=== PATIENT | female | born 1945 | race Caucasian/White ===

== ENCOUNTER → 2017-06-28 15:57 | Outpatient (CLI) | payer MEDICARE, SELFPAY ==
--- NOTE | 2017-06-28 16:02 | MM_ITS ---
MM Dig screening mamm BI w/CAD CAD Screening COMPARISON: Digital mammograms 06/10/2015 and 06/15/2016 INDICATION: There is no personal or family history of breast cancer. There is been previous biopsy left breast for benign disease. TECHNIQUE: Standard CC and MLO images were obtained. R2 CAD reviewed. FINDINGS: Moderate diffuse fibroglandular densities are seen in both breast primarily upper outer quadrants. There is arterial calcification in both breasts. There are few benign-appearing calcination is left breast. There is a possible developing asymmetric density inner quadrant left breast. This was seen previously but is slight increased in size. Recommend patient return for spot compression views in MLO and CC projection and ultrasound may be necessary as well. IMPRESSION: Moderate breast density with possible new or change in asymmetric density left breast. BI-RADS Category: 0 Need Additional Imaging Evaluaiton RECOMMENDED FOLLOW-UP: IMM - IMMEDIATE FOLLOW-UP RECOMMENDED (A letter has been sent to the patient regarding results of the study.)
== END ==
PROVIDERS: Family Provider Family Medicine; PCP Family Medicine; Visit Provider Family Medicine
DX: Z12.31 Encounter for screening mammogram for malignant neoplasm of breast (principal)
CPT/HCPCS: 77067

== ENCOUNTER → 2017-07-23 12:38 | Outpatient (CLI) | payer MEDICARE, SELFPAY ==
--- NOTE | 2017-07-23 | US_ITS ---
MM Dig mamm DX unilat LT CAD, US breast LT complete COMPARISON: 06/28/17 and 06/15/2016 INDICATION: Follow-up abnormal mammogram ORDERING PHYSICIAN: Armani Campa MD PATIENT AGE: 72 years TECHNIQUE: Problem solving views performed FINDINGS: Average fibroglandular tissue. The asymmetric density in the medial aspect of the left breast does appear to compress out as fibroglandular tissue. There is some residual increased density in this region. Rolled views were obtained showing some slight increased density but without defined margins probably related to fibroglandular tissue. This has a somewhat similar appearance on older study of 06/15/2016 and an even older exam of 06/19/2009. Left breast ultrasound: No solid or cystic lesions. No abnormality evident in the medial aspect of the left breast. IMPRESSION: Probably benign finding. Asymmetric density likely corresponds to asymmetric fibroglandular tissue. BI-RADS Category: 3 Benign Finding Short Term Follow-up RECOMMENDED FOLLOW-UP: 6M - 6 MONTH FOLLOW-UP Recommend 6 month progress follow-up with spot compression views as performed on today's exam. (A letter has been sent to the patient regarding results of the study.)
== END ==
PROVIDERS: Family Provider Family Medicine; PCP Family Medicine; Visit Provider Family Medicine
DX: R92.8 Other abnormal and inconclusive findings on diagnostic imaging of breast (principal); R92.2 Inconclusive mammogram
CPT/HCPCS: 76641; 77065

== ENCOUNTER → 2017-09-02 14:53 | Outpatient (CLI) | payer MEDICARE, SELFPAY ==
--- NOTE | 2017-09-02 15:01 | XR_ITS ---
XR knee LT 3V Ordering Physician: Armani Campa MD Patient Age: 72 years: Female HISTORY: ITS.REASON: OSTEOARTHRITIS,ROTATOR CUFF SYNDROME TECHNIQUE: 3 views left knee COMPARISON :None FINDINGS Developing degenerative changes at most evident at medial compartment Narrowing medial compartment with slight undulation at the margin of the medial compartment Marginal osteophytes are most evident about the medial compartment as well. Also developing marginal osteophytes at patellofemoral joint most evident at its inferior margin.. Lateral view knee shows a a moderate to generous joint effusion suprapatella bursa. Mild diffuse demineralization. IMPRESSION degenerative arthritic changes left knee most pronounced/ moderately pronounced at medial compartment. Associated joint effusion
--- NOTE | 2017-09-02 15:01 | XR_ITS ---
XR shoulder RT min 2V Ordering Physician: Armani Campa MD Patient Age: 72 years: Female HISTORY: ITS.REASON: OSTEOARTHRITIS,RT ROATATOR CUFF SYNDROME TECHNIQUE: 3 views right shoulder COMPARISON :None FINDINGS Severe arthritic changes at right shoulder. Severe narrowing sclerosis and diffuse subchondral cystic changes and irregularities are seen at the glenohumeral joint. [id number] appearance at the narrowed sclerotic glenohumeral joint. There is also superior migration of the humeral head relative to the glenoid with narrowing the subacromial space suspect for underlying rotator cuff demise/tear. Mild to moderate AC joint arthropathy. Diffuse demineralization. No fracture nor dislocation. Developing arthritic changes at lower C-spine also noted. [place] right lung clear upper right ribs intact. IMPRESSION: ======== Severe advanced arthritic changes at the right shoulder . Severe degenerative arthritis with [id number] appearance at the glenohumeral joint . Suspect underlying rotator cuff demise and tear as well
== END ==
PROVIDERS: PCP Family Medicine; Visit Provider Family Medicine
DX: M17.12 Unilateral primary osteoarthritis, left knee (principal); M75.101 Unspecified rotator cuff tear or rupture of right shoulder, not specified as traumatic
CPT/HCPCS: 73030; 73562

== ENCOUNTER → 2017-09-14 08:29 | Outpatient (CLI) | payer MEDICARE, SELFPAY ==
--- NOTE | 2017-09-14 08:38 | XR_ITS ---
XR DEXA axial skeleton HISTORY: ITS.REASON: POST MENOPAUSAL ORDERING PHYSICIAN: Armani Campa MD PATIENT AGE: 72 years FINDINGS: The BMD measured at the Right femoral neck is 0.652 g/cm squared with a T score of -2.8 . This is considered Osteoporotic according to the World Health Organization criteria. Fracture risk is high. Treatment is advised. The hip density has decreased by 14% compared to 10/30/2010. IMPRESSION: Osteoporosis with high fracture risk. Recommend follow-up exam August 2018
== END ==
PROVIDERS: Family Provider Family Medicine; PCP Family Medicine; Visit Provider Family Medicine
DX: Z78.0 Asymptomatic menopausal state (principal)
CPT/HCPCS: 77080

== ENCOUNTER → 2018-01-28 14:10 | Outpatient (CLI) | payer MEDICARE, SELFPAY ==
--- NOTE | 2018-01-28 14:14 | MM_ITS ---
MM Dig mamm DX unilat LT CAD Ordering Physician: Armani Campa MD Patient Age: 72 years Female COMPARISON: May 20152014, & 2016 along with diagnostic left mammogram July 2017., INDICATION: Follow-up/ evaluate asymmetric areas of breast density left breast attention to Indication medial left breast TECHNIQUE: CC, rolled cc, MLO, ML as well as spot CC and MLO views FINDINGS: The asymmetric areas of density appear long-standing and stable with no significant new findings. Patient has moderately dense breast tissue at superior breast 12:00 as well as fibroglandular elements extending back towards upper-outer quadrant of left breast. These appear stable versus multiple studies. A small area fibrolinear tissue at medial left breast noted on previous mammogram appears to be a stable benign feature. It dissipates on the rolled cc views compatible with benign fibroglandular tissue and has been seen on multiple previous studies dating even back to 2013... Benign tissue IMPRESSION: ... . Stable left mammogram. No significant new findings may resume annual schedule BI-RADS Category: 2 Benign Finding(s) RECOMMENDED FOLLOW-UP: 6M 6 MONTH FOLLOW-UP. Bilateral mammogram in 6 months to resume annual scheduled A letter has been sent to the patient regarding results of the study.)
== END ==
PROVIDERS: Family Provider Family Medicine; PCP Family Medicine; Visit Provider Family Medicine
DX: R92.8 Other abnormal and inconclusive findings on diagnostic imaging of breast (principal)
CPT/HCPCS: 77065

== ENCOUNTER → 2018-06-01 13:04 | Outpatient (CLI) | payer MEDICARE, SELFPAY ==
--- NOTE | 2018-06-01 13:11 | US_ITS ---
US abdomen complete HISTORY: Vomiting when eating, right upper quadrant pain ITS.REASON: ABD PAIN,N/V ORDERING PHYSICIAN: Elise Dougherty PATIENT AGE: 72 years COMPARISON: None FINDINGS: PANCREAS:Unremarkable. No obvious mass or abnormal fluid collection. No ductal dilatation LIVER:No focal liver lesions demonstrated. Homogeneous echogenicity. No intrahepatic biliary ductal dilatation evident RIGHT KIDNEY:Unremarkable. Normal size and echogenicity. No hydronephrosis LEFT KIDNEY:Unremarkable. No hydronephrosis. Normal size and echogenicity. GALLBLADDER:Gallbladder is mildly distended at 9 cm. Common bile duct is normal at 5 mm. No gallbladder wall thickening, gallstones, pericholecystic fluid, or biliary dilatation. AORTA:No evidence of aneurysm. Small amount plaque is present within the aorta SPLEEN:Unremarkable. Normal size and echogenicity ASCITES:None demonstrated. IMPRESSION: Mildly prominent gallbladder. No stones or other significant anomalies are evident
== END ==
PROVIDERS: PCP Family Medicine; Visit Provider Nurse Practitioner Family
DX: R10.10 Upper abdominal pain, unspecified (principal); R11.2 Nausea with vomiting, unspecified
CPT/HCPCS: 76700

== ENCOUNTER → 2018-07-27 15:06 | Outpatient (CLI) | payer MEDICARE, SELFPAY ==
--- NOTE | 2018-07-27 15:10 | MM_ITS ---
[facility] [place] screening mamm BI w/CAD ORDERING PHYSICIAN : Armani Campa MD PATIENT AGE: 73 years GENDER: Female COMPARISON is made to December 2017, July 2017 studies of the left breast ; as well as the bilateral mammogram from May 2017. There is also a left breast ultrasound study from July 2017 also utilized INDICATION: Screening mammogram.: Prior ABNORMAL MAMM. No hormones. No new complaints Previous excisional biopsy left breast Noncontributory family history TECHNIQUE: Standard CC and MLO images were obtained. R2 CAD reviewed. FINDINGS: Heterogeneous asymmetric breast, with regions of moderately dense breast tissue. Mammography is slight decreased sensitivity in breast of this character but Similar to pattern to previous with no new dominant mass nor suspicious calcifications.. Fibroglandular elements most evident upper-outer quadrant right and left breast again seen.. This pattern is been seen on multiple previous studies with asymmetric areas of density appearing stable no new findings of significant concern. RIGHT BREAST:No new areas of concern LEFT BREAST:Again asymmetric area of density deep medial left breast observed but it is unchanged since last years study, and dates back to at least 2016.-can be followed. Other areas of heterogeneous dense breast of similar to previous studies ......... IMPRESSION: No new areas of significant concern. Asymmetric heterogeneous moderate density breast pattern slightly decreases sensitivity of mammography but with no new areas of concern. Bilateral follow-up in one year recommended BI-RADS Category: 2 Benign Finding(s) RECOMMENDED FOLLOW-UP: 1YR 1 YEAR FOLLOW-UP (A letter has been sent to the patient regarding results of the study.) [facility]
== END ==
PROVIDERS: PCP Family Medicine; Visit Provider Family Medicine
DX: Z12.31 Encounter for screening mammogram for malignant neoplasm of breast (principal)
CPT/HCPCS: 77067

== ENCOUNTER → 2020-03-04 16:08 | Outpatient (CLI) | payer MEDICARE, SELFPAY ==
--- NOTE | 2020-03-04 16:10 | MM_ITS ---
PROCEDURE: MM DIG SCREENING MAMM BI W/CAD Digital Breast Tomosynthesis Included CLINICAL INDICATION: SCREENING There is no personal or family history of breast cancer. There has been a previous biopsy left breast for benign disease. The patient has had previous rotator cuff injury right shoulder and could not assume the proper position for the right MLO. COMPARISON: MG DXLT MM Dig mamm DX unilat LT CAD from 07/23/2017 MG DXLT MM Dig mamm DX unilat LT CAD from 01/28/2018 MG [facility] MM Dig screening mamm BI w/CAD from 07/27/2018 TECHNIQUE: Standard CC and MLO images and 3D Tomosynthesis was obtained. R2 CAD reviewed. FINDINGS: Moderate diffuse fibroglandular densities are seen in both breasts primarily upper outer quadrant. There is minimal arterial calcification in each breast. There is a benign-appearing macro calcification left breast. There is no new or suspicious lesion in either breast and no suspicious microcalcifications. IMPRESSION: Stable fibrofatty parenchyma and no suspicious lesions seen BI-RAD Category: 2 Benign Finding(s) FOLLOW-UP: 1YR 1 Year Follow-up (A letter has been sent to the patient regarding results of the study.) Dictated by: Dr. Osiel Szymanski MD 03/06/2020 16:31 Dr. Osiel Szymanski MD in [place] 03/06/2020 16:31
== END ==
PROVIDERS: PCP Family Medicine; Visit Provider Family Medicine
DX: Z12.31 Encounter for screening mammogram for malignant neoplasm of breast (principal)
CPT/HCPCS: 77063; 77067

== ENCOUNTER → 2020-04-08 08:56 | Outpatient (CLI) | payer MEDICARE, SELFPAY ==
--- NOTE | 2020-04-08 09:03 | XR_ITS ---
PROCEDURE: XR KNEE LT 3V CLINICAL INDICATION: LT KNEE PAIN COMPARISON: CR [id number] XR knee LT 3V from 09/02/2017 FINDINGS: There are severe osteoarthritic changes of the medial compartment and patellofemoral joint. Dysplastic changes are present involving the articular surface of the medial femoral condyle and medial tibial plateau with osteosclerosis and cortical undulation. Chondrocalcinosis is present medially and laterally. No fracture or dislocation. Other findings:None. IMPRESSION: Severe osteoarthritis of the medial compartment and patellofemoral joint which appears slightly worse with chondrocalcinosis Dictated by: Andrea Edwards MD 04/08/2020 11:46 Andrea Edwards MD in [place] 04/08/2020 11:46
== END ==
PROVIDERS: PCP Family Medicine; Visit Provider Orthopaedic Surgery Adult Reconstructive Orthopaedic Surgery
DX: M25.562 Pain in left knee (principal)
CPT/HCPCS: 73562

== ENCOUNTER → 2020-06-24 08:33 | Outpatient (CLI) | payer MEDICARE, SELFPAY ==
[2020-06-24 09:49] LABS: Coronavirus 19 IgG Antibody Negative (Negative); Coronavirus 19 IgM Antibody Negative (Negative)
--- NOTE | 2020-06-24 10:40 | ECG_ITS ---
APPROVED REPORT Exam: Resting ECG HR:70 bpm ECG Measurements Heart Rate 70 AXES QRSd 88 QRS 34 QT 402 T 81 QTc 434 Conclusion Marked artifact limits interpretation Demand pacer spikes noted Abnormal ECG Electronically signed by : Armani Ambrose, 07/05/2020 06:01:37
--- NOTE | 2020-06-24 11:41 | ECG_ITS ---
APPROVED REPORT Exam: Resting ECG HR:79 bpm ECG Measurements Heart Rate 79 AXES NJ 140 P 72 QRSd 84 QRS -11 QT 382 T 69 QTc 438 Conclusion Normal sinus rhythm Normal ECG Electronically signed by : Armani Ambrose, 06/25/2020 07:08:35
== END ==
PROVIDERS: Visit Provider Ophthalmology
DX: K85.90 Acute pancreatitis without necrosis or infection, unspecified (principal)
CPT/HCPCS: 36415; 86328; 93005

== ENCOUNTER 2020-06-24 10:12 | Observation (INO) | payer MEDICARE, SELFPAY ==
[2020-06-24] VITALS (7 sets, daily range): BP systolic 126–165; BP diastolic 65–88; PULSE 74–102; RESP 16–22; TEMP 36.7–37.1; O2SAT 98–99; BMI 19.7
--- NOTE | 2020-06-24 10:26 | CT_ITS ---
PROCEDURE: CT ABDOMEN PELVIS WO CON CLINICAL INDICATION: pain Right flank pain, right lower quadrant pain COMPARISON: CT ABDPELW CT abdomen pelvis w con from 05/31/2018 TECHNIQUE: Axial images obtained with sagittal and coronal reformats. All CT scans at the facility use one or more dose reduction, viz: automated exposure control, ma/kV adjustment per patient size (including targeted exams where dose is matched to indication, i.e. head), or iterative reconstruction technique. FINDINGS: LOWER THORAX: Mild fibrotic/atelectatic changes in the lung bases. Nodular thickening is noted along the right hemidiaphragm 3 cm and 1 cm in with slightly more prominent. There is mild thickening of the pericardium laterally on the right ABDOMEN & PELVIS: There is a 9 mm hypodensity in the right hepatic lobe posteriorly not significantly changed. Gallbladder is somewhat distended. The spleen, adrenal glands, and pancreas have an unremarkable appearance. There is scarring along the lower pole of the right kidney with nonobstructing stone in the lower pole on the right at 4 mm along with some nephrocalcinosis on the right. There is minimal ectasia of the right proximal ureter. On image number 71 there is a faint calcific density along the right ureter which could represent a tiny stone. No evidence of appendicitis or diverticulitis There is a mild amount of retained colonic feces. There is a soft tissue density in the mid abdominal region just below the level of the umbilicus. This area measures 2.5 x 2.4 cm with some faint calcification along its lower margin. Etiology is indeterminate. Recommend CT of the abdomen with both IV and oral contrast for further evaluation and to confirm that this does not represent an area of unopacified bowel. There are multiple pelvic calcifications present. Multiple unopacified bowel loops in the abdomen or pelvis which could obscure or mimic pathology. If symptoms persist, consider repeat exam with IV and oral contrast.. There are degenerative changes in the lumbar spine. There is mild wedging of T11 which is unchanged. No acute bony findings. Nonspecific calcification is present in the right ovarian region. This is unchanged. IMPRESSION: 1. Nodularity along the right hemidiaphragm mildly more prominent.. 2. Mildly distended gallbladder nonspecific. 3. Suspect soft tissue mass in the mid to lower abdominal region centrally 2.5 x 2.[address] abdomen pelvis with both IV and oral contrast. 4. Mild amount of retained colonic feces. Multiple unopacified bowel loops in the abdomen or pelvis which could obscure or mimic pathology. If symptoms persist, consider repeat exam with IV and oral contrast. 5. Right nephrolithiasis. Possible tiny right distal ureteral stone head approximately 1 mm. Dictated by: Andrea Edwards MD 06/24/2020 11:58 Andrea Edwards MD in [place] 06/24/2020 11:58
--- NOTE | 2020-06-24 10:48 | PC.NURSE ---
Pt going to CT
[2020-06-24 11:00] LABS: Basophils % 0.6 % (0.1-2.0); Eosinophils # 0.1 K/mm3 (0.0-0.4); Hematocrit 42.3 % (37.0-47.0); Hemoglobin 13.7 g/dL (12.2-16.2); Lymphocytes # 0.9 K/mm3 (0.7-4.5); Lymphocytes % 15.9 % (10-50); Mean Corpuscular HGB Conc 32.5 g/dL (31.8-35.4); Mean Corpuscular Hemoglobin 28.9 pg (27.0-31.2); Mean Platelet Volume 9.9 fl (7.4-10.4); Monocytes # 0.3 K/mm3 (0.1-1.0); Monocytes % 6.2 % (1.7-9.3); Neutrophils # 4.1 K/mm3 (1.8-7.8); Neutrophils % 76.4 % (37.0-80.0); Platelet Count 202 K/mm3 (142-424); Red Blood Count 4.75 M/mm3 (4.20-5.40); Red Cell Distribution Width 13.9 % (11.5-17.5); White Blood Count 5.4 K/mm3 (4.8-10.8)
[2020-06-24 11:08] LABS: Chloride 102 mmol/L (98-107)
[2020-06-24 11:09] LABS: Potassium 3.3 mmoL/L (3.5-5.1); Sodium 139 mmol/L (136-145)
[2020-06-24 11:11] LABS: Alanine Aminotransferase 20 U/L (12-78); Alkaline Phosphatase 87 U/L (38-126); Anion Gap 14.3 mEq/L (5-15); Aspartate Amino Transferase 37 U/L (14-36); Bilirubin,Total 0.6 mg/dl (0.2-1.3); Blood Urea Nitrogen 12 mg/dl (7-17); Carbon Dioxide 26 mmol/L (22.0-30.0); Estimated Glomerular Filt Rate 97 ml/min (>60); GFR (African American) 118 ML/MIN (>60); Lipase 550 U/L (23-300)
[2020-06-24 11:12] LABS: Albumin Level 4.9 g/dl (3.5-5.0); Albumin/Globulin Ratio 1.3 (1.1-1.8); Globulin 3.7 g/dL (1.3-3.2); Glucose 120 mg/dl (74-100); Total Protein,Serum 8.6 g/dl (6.3-8.2)
[2020-06-24 11:29] LABS: Troponin I < 0.01 ng/ml (0.00-0.034)
--- NOTE | 2020-06-24 11:36 | HMH.EDABDPAI ---
ED Disposition Clinical Impression: Calculus of kidney, Intractable nausea and vomiting, Intractable abdominal pain Pancreatitis Qualifiers: Chronicity: acute Pancreatitis type: unspecified pancreatitis type Acute pancreatitis complication: unspecified Qualified Code(s): K85.90 - Acute pancreatitis without necrosis or infection, unspecified Disposition: Admitted As Inpatient Condition on Discharge: Fair Referrals: Armani Campa MD [Primary Care Provider] - - Critical Care Critical Care Time: No Attestation: On 06/24/20, the high probability of a clinically significant, sudden or life threatening deterioration of the following system(s) required my full and direct attention, intervention and personal management. The time I documented below is in addition to time spent performing reported procedures but includes the following listed in this critical care notation. Medical Decision Making - Medical Records Medical records reviewed: Yes: I reviewed the patient's medical records. - Abelardo Inquiry Pt receiving controlled substance: Yes Abelardo was queried for this patient: No Reason not queried -: Emergent pt cond-no time Risks and benefits of using a controlled substance: were discussed with pt by me Vital Signs: 06/24/20 10:13 Temperature 98.5 F Temperature Source Oral Pulse Rate [Right] 81 Respiratory Rate 22 Blood Pressure [Right Arm] 144/74 H Blood Pressure Mean [Right Arm] 97 Blood Pressure Source [Right Arm] Automatic Cuff Blood Pressure Position [Right Arm] Sitting 02 Sat by Pulse Oximetry 98 Oxygen Delivery Method Room Air - Lab Data Lab Results 06/24/20 10:26: WBC 5.4, RBC 4.75, Hgb 13.7, Hct 42.3, MCV 89.0, MCH 28.9, MCHC 32.5, RDW 13.9, Plt Count 202, MPV 9.9, Neut % (Auto) 76.4, Lymph % (Auto) 15.9, [place] % (Auto) 6.2, Eos % (Auto) 1.0, Baso % (Auto) 0.6, Neut # (Auto) 4.1, Lymph # (Auto) 0.9, [place] # (Auto) 0.3, Eos # (Auto) 0.1, Baso # (Auto) 0.0 06/24/20 10:26: Sodium 139, Potassium 3.3 L, Chloride 102, Carbon Dioxide 26, Anion Gap 14.3, BUN 12, Creatinine 0.60, Estimated GFR 97, Est GFR ( Amer) 118, Glucose 120 H, Calcium 10.0, Total Bilirubin 0.6, AST 37 H, ALT 20, Alkaline Phosphatase 87, Troponin I < 0.01, Total Protein 8.6 H, Albumin 4.9, Globulin 3.7 H, Albumin/Globulin Ratio 1.3, Lipase 550 H Result diagrams: 06/24/20 10:26 06/24/20 10:26 Orders (Tests/Meds): ED MEDICATIONS Discontinued Medications Generic Name Dose Route Start Last Admin Trade Name Freq PRN Reason Stop Dose Admin Diatrizoate Meglum/Diatrizoate Sod 30 ml 06/24/20 12:28 Diatrizoate Darlyn 66% & Diatrizoate Na 10% 30ml Udc PO 06/24/20 12:29 ONCE ONE Hydromorphone HCl 1 mg 06/24/20 10:42 06/24/20 11:19 Hydromorphone 2mg/Ml Syringe IV 06/24/20 10:43 1 mg ONCE ONE Administration Hydromorphone HCl 1 mg 06/24/20 12:27 Hydromorphone 2mg/Ml Syringe IV 06/24/20 12:28 ONCE ONE Sodium Chloride 1,000 mls @ 999 mls/hr 06/24/20 10:30 06/24/20 11:19 Sod Chlor 0.9% 1000ml Bag IV 06/24/20 11:30 999 mls/hr .Q1H1M SHIRA Administration Morphine Sulfate 4 mg 06/24/20 10:26 06/24/20 11:18 Morphine 4mg/Ml Syringe IV 06/24/20 10:27 4 mg ONCE ONE Administration Ondansetron HCl 4 mg 06/24/20 10:26 06/24/20 11:18 Ondansetron 4mg/2ml Vial IV 06/24/20 10:27 4 mg ONCE ONE Administration Ondansetron HCl 4 mg 06/24/20 12:27 Ondansetron 4mg/2ml Vial IV 06/24/20 12:28 ONCE ONE ORDERS Category Date Time Status CT abdomen pelvis w con Stat Cat Scan 06/24/20 12:28 Ordered Lactic Acid Stat Lab 06/24/20 10:24 Ordered Troponin I Q3H Lab 06/24/20 13:30 Ordered Troponin I Q3H Lab 06/24/20 16:30 Ordered Urinalysis and Microscopic Stat Lab 06/24/20 10:24 Ordered - CT Data CT Scan: Abdomen, Pelvis Time Received: 12:[address] Reviewed: Yes: I have reviewed the patient's CT results, I have viewed the radiologist's interpretation Findings Narrativ
--- NOTE | 2020-06-24 12:28 | CT_ITS ---
PROCEDURE: CT ABDOMEN PELVIS W CON CLINICAL INDICATION: pain Right flank pain, right lower quadrant pain, nausea COMPARISON: CT ABDPELW CT abdomen pelvis w con from 05/31/[address] ABDOMEN PELVIS WO CON from 06/24/2020 TECHNIQUE: IV Contrast: 75ML Isovue 370 Oral Contrast Gastroview Axial images obtained with sagittal and coronal reformats. All CT scans at the facility use one or more dose reduction, viz: automated exposure control, ma/kV adjustment per patient size (including targeted exams where dose is matched to indication, i.e. head), or iterative reconstruction technique. FINDINGS: LOWER THORAX: No change in the nodularity in the right middle lobe measuring up to 4 mm. No change in the nodularity along the right hemidiaphragm. ABDOMEN & PELVIS: Hypodensity once again noted in the right hepatic lobe posteriorly at 10 mm similar to 05/31/2018. Distended gallbladder. There is a moderate amount of retained colonic feces once again noted. No intestinal obstruction or free air. Scarring noted in the lower pole of the right kidney with a calcification of the cortex inferiorly. There is hypodensity along the lateral aspect of the left kidney with calcification posteriorly and may represent a stone within a cyst no ureteral calculi parent. Hypodensity is present in the mid abdominal region measuring 2.3 by 2.2 cm. There is a small slightly enhancing nodule along the left lateral aspect of this lesion which measures 10 mm. 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 This may been present on 05/31/2018 but smaller. Urinary bladder is distended. No acute bony findings. IMPRESSION: 1. 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 CTA of the aorta and superior mesenteric artery with CTV of the superior mesenteric vein may provide further evaluation. 2. Moderate amount of retained colonic feces. 3. Other nonacute findings as described above Dictated by: Andrea Edwards MD 06/24/2020 17:03 Andrea Edwards MD in [place] 06/24/2020 17:03
--- NOTE | 2020-06-24 12:37 | PC.NURSE ---
Dr Higginbotham speaking with Dr Campa at this time.
--- NOTE | 2020-06-24 12:48 | PC.NURSE ---
Pt reports she is dizzy and wants to wait on her pain and nausea meds at this time
--- NOTE | 2020-06-24 13:10 | PC.NURSE ---
Pt had pre-op COVID antibody tests this morning for an eye procedure tomorrow. Results are negative. notified receiving RN that patient was ready. Pt given her oral contrast at this time.
--- NOTE | 2020-06-24 13:14 | HMH.PHAINT ---
MEDICATION RECONCILIATION COMPLETED ON PATIENT USING EXTERNAL FILL HISTORY FROM PHARMACY. -AVELINO MOREJON, LAZAROD
--- NOTE | 2020-06-24 13:14 | PC.NURSE ---
patient finished PO contrast at this time, notified radiology
[2020-06-24 13:46] LABS: Lactic Acid 0.7 mmol/L (0.7-2.1)
[2020-06-24 14:05] LABS: Troponin I < 0.01 ng/ml (0.00-0.034)
[2020-06-24 15:06] LABS: Coronavirus 19 IgG Antibody Negative (Negative); Coronavirus 19 IgM Antibody Negative (Negative)
--- NOTE | 2020-06-24 15:59 | PC.NURSE ---
TAKEN TO RADIOLOGY FOR C/T SCAN VIA WC.
--- NOTE | 2020-06-24 16:01 | HMH.HP ---
*Admission Date: 06/24/20 *Chief complaint: Abdominal pain *History of present illness: 74-year-old female presented to the emergency department with onset abdominal pain early this morning. Pain began upon awakening from bed. Patient had not had a chance to eat breakfast. She reports pain in the periumbilical and epigastric area. Pain radiates directly through her to the mid back and down to the spine. Patient also felt nauseous. Patient came to the hospital to have Covid testing performed in anticipation of an outpatient procedure. When her symptoms worsen she decided to present to the emergency department. Patient herself denies fevers, chills, headache, cough, shortness of breath, chest pain. She reports daily bowel movements although admits this morning's bowel movement was smaller in volume than usual. She denies hematochezia, melena. Work-up in the emergency department found an elevated lipase at 500, possible nonobstructing right-sided kidney stone, enlarged gallbladder, and incomplete visualization of the intestinal tract raising possibility of partial obstruction. [facility] History I have reviewed the patient's past medical history: Yes Medical History: Denies:: Cancer, Diabetes Mellitus Type 1, Diabetes Mellitus Type 2, Internal Pacemaker, Lung Disease, MRSA, Seizures *Have you ever received a pneumonia vaccine?: No *Have you received a flu vaccine this season?: No Other Medical History: Reports: Arthritis, Cataracts Other Surgeries: Yes: No Previous Surgery. No: Pacemaker Amputation: No Fractures: No - *Social History Smoking Status: Never smoker Alcohol Intake: never *Occupational Status:: employed Housing: house Household Members: none *Travel in the last 8 weeks: None Family Hx:: Diabetes Review of Systems - *Neurologic Denies headache(s) Meds Home Medications Medication Instructions Recorded Confirmed Type Famotidine [Acid Controller] 20 mg PO HS 06/19/20 06/24/20 History Meloxicam 15 mg PO DAILY 06/19/20 06/24/20 History Potassium Chloride [K-Tab ER 20 20 meq PO DAILY 06/19/20 06/24/20 History mEq] polyethylene glycoL 3350 [Miralax 17 gm PO DAILY 06/19/20 06/24/20 History 17gm Packet] Alendronate Sodium [Fosamax 70mg 70 mg PO WEEKLY 06/24/20 06/24/20 History Tablet] Amlodipine Besylate [Amlodipine 10 mg PO DAILY 06/24/20 06/24/20 History 10mg Tab] Allergies Allergy/AdvReac Type Severity Reaction Status Date / Time No Known Allergies Allergy Verified 06/19/20 15:02 Exam Vital signs and Labs for Last 24 Hours: Temp Pulse Resp BP Pulse Ox 98.3 F 84 16 151/71 H 98 06/24/20 13:17 06/24/20 13:17 06/24/20 13:17 06/24/20 13:17 06/24/20 13:17 Laboratory Results - last 24 hr 06/24/20 10:26: WBC 5.4, RBC 4.75, Hgb 13.7, Hct 42.3, MCV 89.0, MCH 28.9, MCHC 32.5, RDW 13.9, Plt Count 202, MPV 9.9, Neut % (Auto) 76.4, Lymph % (Auto) 15.9, [place] % (Auto) 6.2, Eos % (Auto) 1.0, Baso % (Auto) 0.6, Neut # (Auto) 4.1, Lymph # (Auto) 0.9, [place] # (Auto) 0.3, Eos # (Auto) 0.1, Baso # (Auto) 0.0 06/24/20 10:26: Sodium 139, Potassium 3.3 L, Chloride 102, Carbon Dioxide 26, Anion Gap 14.3, BUN 12, Creatinine 0.60, Estimated GFR 97, Est GFR ( Amer) 118, Glucose 120 H, Calcium 10.0, Total Bilirubin 0.6, AST 37 H, ALT 20, Alkaline Phosphatase 87, Troponin I < 0.01, Total Protein 8.6 H, Albumin 4.9, Globulin 3.7 H, Albumin/Globulin Ratio 1.3, Lipase 550 H 06/24/20 10:26: SARS-CoV-2 IgG Ab (Rapid) Negative, SARS-CoV-2 IgM Ab (Rapid) Negative 06/24/20 13:18: Lactate 0.7 06/24/20 13:18: Troponin I < 0.01 I & O for Last 24 hours: Intake & Output 06/22/20 06/23/20 06/24/20 06/25/20 11:59 11:59 11:59 11:59 Intake Total 750 / 750 Output Total 600 / 600 Balance 150 / 150 Weight 115 lb - Constitutional mild distress, thin - *Routine HEENT Exam Head: Present: normocephalic Eye: Present: EOMI, PERRL ENT: Present: mucous membranes moist - *Routine Neck
--- NOTE | 2020-06-24 18:06 | PC.NURSE ---
BACK TO FLOOR FROM CT SCAN
--- NOTE | 2020-06-24 18:27 | PC.NURSE ---
PT UP TO BATHROOM TO VOID. URINE SPECIMEN HAT PLACED IN TOILET FOR U/A
--- NOTE | 2020-06-24 19:21 | PC.NURSE ---
REPORT GIVEN TO PAULA MÁRQUEZ.
[2020-06-24 19:33] LABS: Troponin I < 0.01 ng/ml (0.00-0.034)
--- NOTE | 2020-06-24 20:22 | PC.NURSE ---
PT REQUESTS ICE CHIPS, DR. CORTES NOTIFIED, PT MAY HAVE ICE CHIPS.
[2020-06-24 20:26] LABS: Microscopic, Urine URINE MICROSCOPIC (MICROSCOPIC)
[2020-06-24 20:30] LABS: Appearance,Urine CLEAR (Clear); Bilirubin,Urine Negative (Negative); Blood, Urine Negative (Negative); Color,Urine YELLOW (Yellow); Glucose,Urine (UA) Negative (Negative); Ketones,Urine Negative (Negative); Leukocyte Esterase,Urine Negative (Negative); Nitrate,Urine Negative (Negative); Protein,Urine Negative (Negative); Urobilinogen,Urine 0.2 EU/dl (0.2)
[2020-06-24 20:52] LABS: Squamous Epithelial Cell,Urine Occasional #/hpf (0-5)
[2020-06-25 04:10] VITALS: BP 134/80; PULSE 92; RESP 18; TEMP 36.9; O2SAT 98
--- NOTE | 2020-06-25 04:10 | PC.NURSE ---
PT HAS RESTED WELL THIS SHIFT, REPORTS NO PAIN AT THIS TIME. HAS REPORTED MINIMAL BACK/FLANK PAIN AT START OF SHIFT BUT HAS NOT REQUIRED PAIN MEDICATION. PT DENIES ANY N/V. URINE PALE YELLOW AND CLEAR. ABDOMEN SOFT, MILD DISTENTION, UNCHANGED. MILDLY TENDER TO PALPATION. BOWEL SOUNDS ACTIVE X 4 QUADS. NO BM THIS SHIFT. TOLERATING ICE CHIPS. NO ACUTE CHANGES. CALL LIGHT WITHIN REACH, WILL CONTINUE TO MONITOR
--- NOTE | 2020-06-25 06:53 | US_ITS ---
PROCEDURE: US ABDOMEN COMPLETE CLINICAL INDICATION: epigastric/ruq abdomnal pain Abdominal mass COMPARISON: US ABDCM US abdomen complete from 06/01/[address] ABDOMEN PELVIS W CON from 06/24/2020 FINDINGS: PANCREAS: Unremarkable. No obvious mass or abnormal fluid collection. No ductal dilatation LIVER: No focal liver lesions demonstrated. Homogeneous echogenicity. No intrahepatic biliary ductal dilatation evident. There is appropriate direction of blood flow within a non dilated portal vein RIGHT KIDNEY: There is some cortical scarring of the right kidney. No hydronephrosis. LEFT KIDNEY: 2 cm cyst is present along the lower pole of the left kidney GALLBLADDER: No gallstones, gallbladder wall thickening, pericholecystic fluid, or biliary dilatation. AORTA: Atherosclerotic changes involve the abdominal aorta without evidence of aneurysm SPLEEN: Unremarkable. Normal size and echogenicity ASCITES: None demonstrated. The central abdominal mass is not detected by ultrasound IMPRESSION: No acute findings Dictated by: Andrea Edwards MD 06/25/2020 16:26 Andrea Edwards MD in [facility] 06/25/2020 16:26
--- NOTE | 2020-06-25 06:53 | CT_ITS ---
Procedure: CT ANGIO ABDOMEN CLINICAL HISTORY: possible SMA thrombosis or SMV varix COMPARISON: CT ABDPELW CT abdomen pelvis w con from 05/31/2018 TECHNIQUE: IV Contrast: 100ml Isovue 370 Axial images obtained with sagittal and coronal reformats. All CT scans at the facility use one or more dose reduction, viz: automated exposure control, ma/kV adjustment per patient size (including targeted exams where dose is matched to indication, i.e. head), or iterative reconstruction technique. FINDINGS: CTA with dynamic imaging performed of the abdomen. No evidence of aortic aneurysm. There is a mild amount calcific plaque in the aortoiliac vessels. Calcific plaque is present at the ostium of the right renal artery with approximately 50 percent stenosis. The left renal artery has an unremarkable appearance. Minimal calcific plaque is present at the ostium of the celiac and superior mesenteric arteries without significant stenosis. Within the mid abdominal region slightly below the level of the umbilicus there is a soft tissue mass which measures 2.5 cm transverse and 2 cm AP. This is at the bifurcation of the superior mesenteric artery and does not appear to represent a thrombosed aneurysm or varix. The ileocolic artery branches to the right of this lesion. Some of the medial aspect of the jejunal branches supply of this lesion along the left aspect. This lesion shows some increased density along the left lateral aspect and decreased density centrally. On 05/31/2018 the lesion measured 1.8 x 1.4 cm. Scarring is noted involving both kidneys as recently mentioned. IMPRESSION: 1. 2 cm central mesenteric mass as described above. This is not felt to be due to an aneurysm or varix but is consistent with a solid mesenteric mass. Differential diagnosis is vast and includes metastatic disease, lymphoma, neuroendocrine/carcinoid tumor, gastrointestinal stromal tumor. The lesion is not a minimal to percutaneous CT directed biopsy. There has been only slow growth compared to 05/31/2018. 2. Other nonacute findings as described above. Dictated by: Andrea Edwards MD 06/25/2020 12:31 Andrea Edwards MD in [facility] 06/25/2020 12:31
--- NOTE | 2020-06-25 07:23 | HMH.ACPN2 ---
Internal Medicine - PN: Subj *Date: 06/25/20 *Time: 07:23 Interval history: Patient reports feeling better this morning and this is confirmed by nursing staff. She still has some mild right upper quadrant pain. Overnight she did complain of some discomfort in the back. Patient's CT scan with IV and oral contrast has been read as possibly having a superior mesenteric artery aneurysm thrombosis or an SMV varix and repeat CTA and CTV have been recommended. Patient tolerated clear liquids overnight Exam Vital signs and Labs for Last 24 Hours: Temp Pulse Resp BP Pulse Ox 98.4 F 92 H 18 134/80 98 06/25/20 04:10 06/25/20 04:10 06/25/20 04:10 06/25/20 04:10 06/25/20 04:10 Laboratory Results - last 24 hr 06/24/20 10:26: WBC 5.4, RBC 4.75, Hgb 13.7, Hct 42.3, MCV 89.0, MCH 28.9, MCHC 32.5, RDW 13.9, Plt Count 202, MPV 9.9, Neut % (Auto) 76.4, Lymph % (Auto) 15.9, [place] % (Auto) 6.2, Eos % (Auto) 1.0, Baso % (Auto) 0.6, Neut # (Auto) 4.1, Lymph # (Auto) 0.9, [place] # (Auto) 0.3, Eos # (Auto) 0.1, Baso # (Auto) 0.0 06/24/20 10:26: Sodium 139, Potassium 3.3 L, Chloride 102, Carbon Dioxide 26, Anion Gap 14.3, BUN 12, Creatinine 0.60, Estimated GFR 97, Est GFR ( Amer) 118, Glucose 120 H, Calcium 10.0, Total Bilirubin 0.6, AST 37 H, ALT 20, Alkaline Phosphatase 87, Troponin I < 0.01, Total Protein 8.6 H, Albumin 4.9, Globulin 3.7 H, Albumin/Globulin Ratio 1.3, Lipase 550 H 06/24/20 10:26: SARS-CoV-2 IgG Ab (Rapid) Negative, SARS-CoV-2 IgM Ab (Rapid) Negative 06/24/20 13:18: Lactate 0.7 06/24/20 13:18: Troponin I < 0.01 06/24/20 17:35: Troponin I < 0.01 06/24/20 18:30: Urine Color Yellow, Urine Appearance Clear, Urine pH 7.0, Ur Specific [place] 1.020, Urine Protein Negative, Urine Glucose (UA) Negative, Urine Ketones Negative, Urine Blood Negative, Urine Nitrate Negative, Urine Bilirubin Negative, Urine Urobilinogen 0.2, Ur Leukocyte Esterase Negative, Ur Squamous Epith Cells Occasional I & O for Last 24 hours: Intake & Output 06/22/20 06/23/20 06/24/20 06/25/20 11:59 11:59 11:59 11:59 Intake Total 1200 / 1200 Output Total 600 / 600 Balance 600 / 600 Weight 115 lb - Constitutional no acute distress - *Routine Respiratory Exam Present: CTA bilaterally - *Routine Cardiovascular Exam Present: RRR - *Routine Abdominal Exam Present: tenderness (Mild epigastric) Assessment and Plan (1) Pancreatitis Status: Acute Qualifiers: Chronicity: acute Pancreatitis type: unspecified pancreatitis type Acute pancreatitis complication: unspecified Qualified Code(s): K85.90 - Acute pancreatitis without necrosis or infection, unspecified Category: Medical Code(s): K85.90 - Acute pancreatitis without necrosis or infection, unspecified (2) Calculus of kidney Status: Acute Category: Medical Code(s): N20.0 - Calculus of kidney (3) Hypokalemia Status: Acute Category: Medical Code(s): E87.6 - Hypokalemia (4) Generalized abdominal pain Status: Acute Category: Medical Code(s): R10.84 - Generalized abdominal pain - Assessment and plan all Dx Assessment and Plan for all problems:: 1. Gallbladder ultrasound today 2. CTA/CTV of abdomen to rule out SMA aneurysm thrombosis or SMV varix 3. Surgical consult
--- NOTE | 2020-06-25 07:25 | HMH.PHAVTE ---
[facility] Pharmacy VTE Monitoring - Patient Demographics Admission date: 06/24/20 Report Date: 06/25/20 Time: 07:25 Allergies/Adverse Reactions: Patient Allergies No Known Allergies Allergy (Verified 06/19/20 15:02) Height: 1.63 m Weight: 52.163 kg Patient Problems: Current Active Problems Hypokalemia (Acute) Pancreatitis (Acute) Calculus of kidney (Acute) Intractable nausea and vomiting (Acute) Intractable abdominal pain (Acute) Generalized abdominal pain (Acute) - VTE Risk Labs: VTE Related Lab Results Hgb 13.7 g/dL (12.2-16.2) 06/24/20 10:26 Hct 42.3 % (37.0-47.0) 06/24/20 10:26 Plt Count 202 K/mm3 (142-424) 06/24/20 10:26 BUN 12 mg/dl (7-17) 06/24/20 10:26 Creatinine 0.60 mg/dl (0.52-1.04) 06/24/20 10:26 Was VTE Risk Assessment Performed: Yes VTE Score: 1 VTE Risk Level: Low Risk Clinical Trial Participant: No - Prophylaxis VTE Prophylaxis Ordered?: Yes Types of VTE Prophylaxis: TEDS Knee High
[2020-06-25 07:54] LABS: Basophils % 0.1 % (0.1-2.0); Eosinophils % 0.3 % (0.1-12.0); Hematocrit 37.8 % (37.0-47.0); Lymphocytes % 15.2 % (10-50); Mean Corpuscular HGB Conc 32.7 g/dL (31.8-35.4); Mean Corpuscular Hemoglobin 29.2 pg (27.0-31.2); Mean Corpuscular Volume 89.4 fl (81-99); Mean Platelet Volume 9.8 fl (7.4-10.4); Monocytes # 0.5 K/mm3 (0.1-1.0); Monocytes % 7.8 % (1.7-9.3); Neutrophils # 5.2 K/mm3 (1.8-7.8); Neutrophils % 76.6 % (37.0-80.0); Platelet Count 178 K/mm3 (142-424); Red Blood Count 4.22 M/mm3 (4.20-5.40); Red Cell Distribution Width 14.1 % (11.5-17.5); White Blood Count 6.8 K/mm3 (4.8-10.8)
[2020-06-25 07:55] LABS: Hemoglobin 12.3 g/dL (12.2-16.2)
[2020-06-25 07:58] LABS: Alanine Aminotransferase 17 U/L (12-78); Albumin Level 4.3 g/dl (3.5-5.0); Albumin/Globulin Ratio 1.3 (1.1-1.8); Alkaline Phosphatase 77 U/L (38-126); Anion Gap 9.8 mEq/L (5-15); Aspartate Amino Transferase 39 U/L (14-36); Bilirubin,Total 0.5 mg/dl (0.2-1.3); Blood Urea Nitrogen 6 mg/dl (7-17); Carbon Dioxide 30 mmol/L (22.0-30.0); Chloride 102 mmol/L (98-107); Creatinine Clearance Estimated 39 mL/min (50-200); Estimated Glomerular Filt Rate 97 ml/min (>60); GFR (African American) 118 ML/MIN (>60); Globulin 3.2 g/dL (1.3-3.2); Glucose 105 mg/dl (74-100); Sodium 139 mmol/L (136-145); Total Protein,Serum 7.5 g/dl (6.3-8.2)
[2020-06-25 08:00] VITALS: BP 144/78; PULSE 83; RESP 18; TEMP 36.8; O2SAT 100
--- NOTE | 2020-06-25 08:00 | PC.NURSE ---
PT ASSESSED AT THIS TIME. BILATERAL LUNG SOUNDS CLEAR. NO EDEMA NOTED. PT ABD DISTENDED AND TENDER. BOWEL SOUNDS PRESENT AND NORMOACTIVE X4 QUADS. PT C/O PAIN WITH PALPATION TO R UPPER AND LOWER QUAD WELL R FLANK. STATES PAIN WITH PALPATION IS 5/10 ON VERBAL SCALE. STATES NO PAIN RESTING IN BED. DENIES ANY FURTHER NEEDS AT THIS TIME. WILL CONTINUE TO OBSERVE.
[2020-06-25 08:02] LABS: Potassium 2.8 mmoL/L (3.5-5.1)
--- NOTE | 2020-06-25 08:03 | PC.NURSE ---
DR. CORTES PAGED AT THIS TIME R/T K+ 2.8
[2020-06-25 08:06] LABS: Calcium 8.8 mg/dl (8.4-10.2)
--- NOTE | 2020-06-25 08:07 | PC.NURSE ---
DR. CORTES RETURNED PAGE AT THIS TIME STATES THAT HE IS GOING TO ORDER IV K+
[2020-06-25 08:58] LABS: Magnesium 1.8 mg/dl (1.6-2.3)
--- NOTE | 2020-06-25 09:18 | PC.NURSE ---
PT TAKEN OFF OF UNIT AT THIS TIME FOR CT AND US.
--- NOTE | 2020-06-25 10:15 | PC.NURSE ---
PT RETURNED TO ROOM 280 AT THIS TIME. IV FLUSHED AND RESTARTED AT THIS TIME. PT DENIES ANY PAIN
[2020-06-25 12:00] VITALS: BP 115/78; PULSE 89; RESP 16; TEMP 36.9; O2SAT 98
--- NOTE | 2020-06-25 14:16 | HMH.GSCON ---
*Admission Date: 06/24/20 *Reason for consult:: Abdominal pain *History of present illness: Asked to see patient in consultation by Dr. Campa for abdominal pain and abnormal CT scan. She is a pleasant 74-year-old female who presented to the emergency department with onset of periumbilical and epigastric abdominal pain radiating through to her mid-back with some associated nausea early yesterday morning. Work-up in the emergency department found an elevated lipase at 500, possible nonobstructing right-sided kidney stone, enlarged gallbladder, and incomplete visualization of the intestinal tract raising possibility of partial obstruction. She was admitted for inpatient management. She did undergo CT scan with IV and oral contrast after the noncontrast CT scan. This was most notable for the following findings: Soft tissue density in the mid abdominal region is felt to be related to either a thrombosed superior mesenteric artery aneurysm or superior mesenteric vein varix. It was suggested that CTA of the aorta and superior mesenteric artery with CTV of the superior mesenteric vein may provide further evaluation. Surgical consultation was obtained. Patient has had virtual complete resolution of her symptomatology. She has tolerated clear liquids. She describes some tenderness along the right lateral thoracoabdominal area more on the surface. Review of Systems - Review of Systems Review of systems:: pertinent systems reviewed and negative unless documented below - *Neurologic Denies headache(s) [facility] History I have reviewed the patient's past medical history: Yes Medical History: Denies:: Cancer, Diabetes Mellitus Type 1, Diabetes Mellitus Type 2, Internal Pacemaker, Lung Disease, MRSA, Seizures *Have you ever received a pneumonia vaccine?: No *Have you received a flu vaccine this season?: No Other Medical History: Reports: Arthritis, Cataracts Other Surgeries: Yes: No Previous Surgery. No: Pacemaker Amputation: No Fractures: No - *Social History Last grade of school completed: High school graduate Smoking Status: Never smoker Alcohol Intake: never *Occupational Status:: employed Housing: house Household Members: none *Travel in the last 8 weeks: None Family Hx:: Diabetes Meds Home Medications Medication Instructions Recorded Confirmed Type Famotidine [Acid Controller] 20 mg PO HS 06/19/20 06/24/20 History Meloxicam 15 mg PO DAILY 06/19/20 06/24/20 History Potassium Chloride [K-Tab ER 20 20 meq PO DAILY 06/19/20 06/24/20 History mEq] polyethylene glycoL 3350 [Miralax 17 gm PO DAILY 06/19/20 06/24/20 History 17gm Packet] Alendronate Sodium [Fosamax 70mg 70 mg PO WEEKLY 06/24/20 06/24/20 History Tablet] Amlodipine Besylate [Amlodipine 10 mg PO DAILY 06/24/20 06/24/20 History 10mg Tab] Allergies Allergy/AdvReac Type Severity Reaction Status Date / Time No Known Allergies Allergy Verified 06/19/20 15:02 Exam Vital signs and Labs for Last 24 Hours: Temp Pulse Resp BP Pulse Ox 98.4 F 89 16 115/78 98 06/25/20 12:00 06/25/20 12:00 06/25/20 12:00 06/25/20 12:00 06/25/20 12:00 Laboratory Results - last 24 hr 06/24/20 10:26: SARS-CoV-2 IgG Ab (Rapid) Negative, SARS-CoV-2 IgM Ab (Rapid) Negative 06/24/20 17:35: Troponin I < 0.01 06/24/20 18:30: Urine Color Yellow, Urine Appearance Clear, Urine pH 7.0, Ur Specific [place] 1.020, Urine Protein Negative, Urine Glucose (UA) Negative, Urine Ketones Negative, Urine Blood Negative, Urine Nitrate Negative, Urine Bilirubin Negative, Urine Urobilinogen 0.2, Ur Leukocyte Esterase Negative, Ur Squamous Epith Cells Occasional 06/25/20 07:10: WBC 6.8 D, RBC 4.22, Hgb 12.3 D, Hct 37.8, MCV 89.4, MCH 29.2, MCHC 32.7, RDW 14.1, Plt Count 178, MPV 9.8, Neut % (Auto) 76.6, Lymph % (Auto) 15.2, [place] % (Auto) 7.8, Eos % (Auto) 0.3, Baso % (Auto) 0.1, Neut # (Auto) 5.2, Lymph # (Auto) 1.0, [place] # (Auto) 0.5, Eos # (Auto) 0.0, Baso # (Auto) 0.0
[2020-06-25 16:00] VITALS: BP 140/68; PULSE 87; RESP 20; TEMP 37.1; O2SAT 94
--- NOTE | 2020-06-25 16:10 | PC.NURSE ---
DR. CORTES AT BEDSIDE AT THIS TIME. NO ORDERS. POSSIBLE DC IN AM. AWAITING REVIEW OF ULTRASOUND OF GALLBLADDER. CONTINUE CLEAR LIQUID DIET AND AMBULATION. MEDICATE NEEDED PER EMAR.
--- NOTE | 2020-06-25 19:09 | PC.NURSE ---
REPORT GIVEN TO Nina MEYER RN.
[2020-06-25 21:00] VITALS: BP 151/72; PULSE 90; RESP 17; TEMP 36.9; O2SAT 98
[2020-06-26 04:33] VITALS: BP 122/72; PULSE 88; RESP 17; TEMP 37.2
--- NOTE | 2020-06-26 04:34 | PC.NURSE ---
pt has rested well throughout shift, pt is alert and oriented and able to make needs known, no change from previous assessment, pt states she had one episode of pain throughout night where her pain was a 6/10 but she states she did not want to take anything for pain, pain is currently resolved, bs remain hyperactive x 4 quads, tolerating clear liquid diet, iv patent, no needs at this time
--- NOTE | 2020-06-26 06:45 | PC.NURSE ---
Dr Campa at bedside report given no new orders
--- NOTE | 2020-06-26 06:48 | HMH.ACPN2 ---
Internal Medicine - PN: Subj *Date: 06/26/20 *Time: 06:48 Interval history: Patient had one episode of pain overnight that lasted for several hours but patient refused medication. She has not had any further nausea or vomiting and admits this morning she may be slightly hungry. She however has continued to have mild episodes of right upper quadrant pain right mid abdominal pain that radiates through to her back Exam Vital signs and Labs for Last 24 Hours: Temp Pulse Resp BP Pulse Ox 98.9 F 88 17 122/72 98 06/26/20 04:33 06/26/20 04:33 06/26/20 04:33 06/26/20 04:33 06/25/20 21:00 Laboratory Results - last 24 hr 06/25/20 07:10: WBC 6.8 D, RBC 4.22, Hgb 12.3 D, Hct 37.8, MCV 89.4, MCH 29.2, MCHC 32.7, RDW 14.1, Plt Count 178, MPV 9.8, Neut % (Auto) 76.6, Lymph % (Auto) 15.2, [place] % (Auto) 7.8, Eos % (Auto) 0.3, Baso % (Auto) 0.1, Neut # (Auto) 5.2, Lymph # (Auto) 1.0, [place] # (Auto) 0.5, Eos # (Auto) 0.0, Baso # (Auto) 0.0 06/25/20 07:10: Sodium 139, Potassium 2.8 L*, Chloride 102, Carbon Dioxide 30, Anion Gap 9.8, BUN 6 L D, Creatinine 0.60, Estimated Creat Clear 39, Estimated GFR 97, Est GFR ( Amer) 118, Glucose 105 H, Calcium 8.8 D, Total Bilirubin 0.5, AST 39 H, ALT 17, Alkaline Phosphatase 77, Total Protein 7.5, Albumin 4.3 D, Globulin 3.2, Albumin/Globulin Ratio 1.3 06/25/20 07:10: Magnesium 1.8 I & O for Last 24 hours: Intake & Output 06/23/20 06/24/20 06/25/20 06/26/20 11:59 11:59 11:59 11:59 Intake Total 1200 / 1200 Output Total 1999 / 1999 1500 / 1500 Balance -800 / -800 -1500 / -1500 Weight 115 lb - Constitutional no acute distress - *Routine Respiratory Exam Present: CTA bilaterally - *Routine Cardiovascular Exam Present: RRR - *Routine Abdominal Exam Present: soft, tenderness (Right upper quadrant, mild in the epigastrium) - Routine Back/Spine/Pelvis Exam Back/Spine: Absent: CVA tenderness Assessment and Plan (1) Pancreatitis Status: Acute Qualifiers: Chronicity: acute Pancreatitis type: unspecified pancreatitis type Acute pancreatitis complication: unspecified Qualified Code(s): K85.90 - Acute pancreatitis without necrosis or infection, unspecified Category: Medical Code(s): K85.90 - Acute pancreatitis without necrosis or infection, unspecified (2) Calculus of kidney Status: Acute Category: Medical Code(s): N20.0 - Calculus of kidney (3) Hypokalemia Status: Acute Category: Medical Code(s): E87.6 - Hypokalemia (4) Generalized abdominal pain Status: Acute Category: Medical Code(s): R10.84 - Generalized abdominal pain - Assessment and plan all Dx Assessment and Plan for all problems:: Exact etiology of the patient's pain still remains a mystery. Patient will be maintained on IV fluids. Diet will be advanced to full liquids. Continue to treat as if acute pancreatitis is a source of pain. patient will need further outpatient work-up of this mass around the superior mesenteric artery
--- NOTE | 2020-06-26 07:00 | PC.NURSE ---
Dr Gomez at bedside at this time
[2020-06-26 07:04] LABS: Anion Gap 8.9 mEq/L (5-15); Blood Urea Nitrogen 3 mg/dl (7-17); Calcium 8.2 mg/dl (8.4-10.2); Carbon Dioxide 27 mmol/L (22.0-30.0); Chloride 105 mmol/L (98-107); Creatinine Clearance Estimated 39 mL/min (50-200); Estimated Glomerular Filt Rate 97 ml/min (>60); GFR (African American) 118 ML/MIN (>60); Glucose 107 mg/dl (74-100); Potassium 3.9 mmoL/L (3.5-5.1); Sodium 137 mmol/L (136-145)
--- NOTE | 2020-06-26 07:33 | P.PN_ITS ---
Subjective Narrative: Patient's main complaint today is mid back, and right back pain. She does have some pain in the epigastrium and right upper quadrant. Progress Note: A&P (1) Pancreatitis Status: Acute (2) Calculus of kidney Status: Acute (3) Hypokalemia Status: Acute (4) Generalized abdominal pain Status: Acute Assessment and Plan for All Diagnoses:: Unclear as to the etiology of patient's symptoms at this time. May be multifactorial. Exam Vital signs and Labs for Last 24 Hours: Temp Pulse Resp BP Pulse Ox 98.9 F 88 17 122/72 98 06/26/20 04:33 06/26/20 04:33 06/26/20 04:33 06/26/20 04:33 06/25/20 21:00 Laboratory Results - last 24 hr 06/25/20 07:10: WBC 6.8 D, RBC 4.22, Hgb 12.3 D, Hct 37.8, MCV 89.4, MCH 29.2, MCHC 32.7, RDW 14.1, Plt Count 178, MPV 9.8, Neut % (Auto) 76.6, Lymph % (Auto) 15.2, [place] % (Auto) 7.8, Eos % (Auto) 0.3, Baso % (Auto) 0.1, Neut # (Auto) 5.2, Lymph # (Auto) 1.0, [place] # (Auto) 0.5, Eos # (Auto) 0.0, Baso # (Auto) 0.0 06/25/20 07:10: Sodium 139, Potassium 2.8 L*, Chloride 102, Carbon Dioxide 30, Anion Gap 9.8, BUN 6 L D, Creatinine 0.60, Estimated Creat Clear 39, Estimated GFR 97, Est GFR ( Amer) 118, Glucose 105 H, Calcium 8.8 D, Total Bilirubin 0.5, AST 39 H, ALT 17, Alkaline Phosphatase 77, Total Protein 7.5, Albumin 4.3 D, Globulin 3.2, Albumin/Globulin Ratio 1.3 06/25/20 07:10: Magnesium 1.8 06/26/20 06:34: Sodium 137, Potassium 3.9 D, Chloride 105, Carbon Dioxide 27, Anion Gap 8.9, BUN 3 L D, Creatinine 0.60, Estimated Creat Clear 39, Estimated GFR 97, Est GFR ( Amer) 118, Glucose 107 H, Calcium 8.2 L I & O for Last 24 hours: Intake & Output 06/23/20 06/24/20 06/25/20 06/26/20 11:59 11:59 11:59 11:59 Intake Total 1200 / 1200 Output Total 1999 / 1999 1500 / 1500 Balance -800 / -800 -1500 / -1500 Weight 115 lb - *Routine Abdominal Exam Present: soft Comments: She has tenderness in the right upper quadrant
[2020-06-26 10:00] VITALS: BP 123/67; PULSE 87; RESP 18; TEMP 37.1
[2020-06-26 10:59] LABS: Amylase 66 U/L (30-110); Bilirubin,Unconjugated 0.2 mg/dL (0.0-1.1)
[2020-06-26 11:00] LABS: Alanine Aminotransferase 12 U/L (12-78); Albumin Level 3.5 g/dl (3.5-5.0); Alkaline Phosphatase 65 U/L (38-126); Aspartate Amino Transferase 34 U/L (14-36); Bilirubin,Direct 0.4 mg/dl (0.0-0.4); Bilirubin,Indirect 0.2 mg/dL (0.0-0.9); Bilirubin,Total 0.6 mg/dl (0.2-1.3); Lipase 110 U/L (23-300); Total Protein,Serum 6.2 g/dl (6.3-8.2)
--- NOTE | 2020-06-26 19:07 | PC.NURSE ---
Report given to PAULA Mejia.
[2020-06-27 04:50] VITALS: BP 121/74; PULSE 84; RESP 16; TEMP 37.5; O2SAT 99
--- NOTE | 2020-06-27 05:07 | PC.NURSE ---
Pt has slept this shift, A&O x4, BLT luncs CTA, Bowel sounds hyperactive in all 4 quadrants, Pt has some tenderness and has complained of RUQ pain, Pt reports pain is relieved with rest. Pt has had goos output tonight, Pt gets up without assistance, Pt denies SOA, pain, headache, or N/V
--- NOTE | 2020-06-27 07:13 | HMH.GSPN ---
Subjective Patient reports: feels better, still having pain Narrative: She states that she feels some better than yesterday . She also claims that she is quite a bit better than (admission) . She does continue to have abdominal pain that is mostly throughout the right and mid abdomen. Some back pain remains. She states that the majority of her symptoms are worse with voiding. Progress Note: A&P (1) Pancreatitis Status: Acute (2) Calculus of kidney Status: Acute (3) Hypokalemia Status: Acute (4) Generalized abdominal pain Status: Acute Assessment and plan: The patient's symptomatology is potentially multifactorial to include both GI and genitourinary sources. She does appear to be improving and states that she would like to go home as soon as possible . Although she continues to have abdominal pain with intermittent exacerbations, she does not appear to have need for emergent/urgent surgical intervention. Much of her ongoing evaluation can likely be completed as an outpatient. Exam Vital signs and Labs for Last 24 Hours: Temp Pulse Resp BP Pulse Ox 99.5 F 84 16 121/74 99 06/27/20 04:50 06/27/20 04:50 06/27/20 04:50 06/27/20 04:50 06/27/20 04:50 Laboratory Results - last 24 hr 06/26/20 06:34: Sodium 137, Potassium 3.9 D, Chloride 105, Carbon Dioxide 27, Anion Gap 8.9, BUN 3 L D, Creatinine 0.60, Estimated Creat Clear 39, Estimated GFR 97, Est GFR ( Amer) 118, Glucose 107 H, Calcium 8.2 L 06/26/20 06:34: Total Bilirubin 0.6, Direct Bilirubin 0.4, Conjugated Bilirubin 0.0, Indirect Bilirubin 0.2, Unconjugated Bilirubin 0.2, AST 34, ALT 12 D, Alkaline Phosphatase 65, Total Protein 6.2 L, Albumin 3.5 D, Amylase 66 06/26/20 06:34: Lipase 110 I & O for Last 24 hours: Intake & Output 06/24/20 06/25/20 06/26/20 06/27/20 11:59 11:59 11:59 11:59 Intake Total 1200 / 1200 240 / 240 Output Total 2000 / 1999 1500 / 1500 1900 / 1900 Balance -800 / -800 -1500 / -1500 -1660 / -1660 Weight 115 lb - Constitutional no acute distress - *Routine Respiratory Exam Absent: respiratory distress - *Routine Cardiovascular Exam Present: RRR - *Routine Abdominal Exam Present: soft, tenderness (Tenderness throughout the mid abdomen that increases towards the right.). Absent: distended
--- NOTE | 2020-06-27 07:40 | HMH.ACPN2 ---
Internal Medicine - PN: Subj *Date: 06/27/20 *Time: 07:40 Interval history: Patient feels better. She continues to report some mild right upper quadrant and right mid abdomen pain that does transiently worsen after eating or drinking. Patient has declined IV pain medication for her discomfort and will usually pass with ambulation or urination. She also continues to complain of some discomfort in the right flank area. There has been no hematuria. Exam Vital signs and Labs for Last 24 Hours: Temp Pulse Resp BP Pulse Ox 99.5 F 84 16 121/74 99 06/27/20 04:50 06/27/20 04:50 06/27/20 04:50 06/27/20 04:50 06/27/20 04:50 Laboratory Results - last 24 hr 06/26/20 06:34: Total Bilirubin 0.6, Direct Bilirubin 0.4, Conjugated Bilirubin 0.0, Indirect Bilirubin 0.2, Unconjugated Bilirubin 0.2, AST 34, ALT 12 D, Alkaline Phosphatase 65, Total Protein 6.2 L, Albumin 3.5 D, Amylase 66 06/26/20 06:34: Lipase 110 I & O for Last 24 hours: Intake & Output 06/24/20 06/25/20 06/26/20 06/27/20 11:59 11:59 11:59 11:59 Intake Total 1200 / 1200 240 / 240 Output Total 2000 / 2000 1500 / 1500 1900 / 1900 Balance -800 / -800 -1500 / -1500 -1660 / -1660 Weight 115 lb Narrative: Patient looks comfortable. Lungs are clear. Heart has a regular rate and rhythm. Abdomen is soft with some epigastric and right upper quadrant as well as right mid abdominal tenderness that is mild. Patient also has some muscular tenderness in the right flank. Assessment and Plan (1) Pancreatitis Status: Acute Qualifiers: Chronicity: acute Pancreatitis type: unspecified pancreatitis type Acute pancreatitis complication: unspecified Qualified Code(s): K85.90 - Acute pancreatitis without necrosis or infection, unspecified Category: Medical Code(s): K85.90 - Acute pancreatitis without necrosis or infection, unspecified (2) Calculus of kidney Status: Acute Category: Medical Code(s): N20.0 - Calculus of kidney (3) Hypokalemia Status: Acute Category: Medical Code(s): E87.6 - Hypokalemia (4) Generalized abdominal pain Status: Acute Category: Medical Code(s): R10.84 - Generalized abdominal pain - Assessment and plan all Dx Assessment and Plan for all problems:: Patient has improved although still remains mildly symptomatic from pancreatitis. She is tolerating diet and will be discharged home. Patient will follow-up in the office on Wednesday where further outpatient testing will be arranged
--- NOTE | 2020-06-27 07:41 | HMH.DCSUM ---
General - General Admission date:: 06/24/20 Discharge date: 06/27/20 HPI HPI: 74-year-old female presented to the emergency department with onset abdominal pain early this morning. Pain began upon awakening from bed. Patient had not had a chance to eat breakfast. She reports pain in the periumbilical and epigastric area. Pain radiates directly through her to the mid back and down to the spine. Patient also felt nauseous. Patient came to the hospital to have Covid testing performed in anticipation of an outpatient procedure. When her symptoms worsen she decided to present to the emergency department. Patient herself denies fevers, chills, headache, cough, shortness of breath, chest pain. She reports daily bowel movements although admits this morning's bowel movement was smaller in volume than usual. She denies hematochezia, melena. Work-up in the emergency department found an elevated lipase at 500, possible nonobstructing right-sided kidney stone, enlarged gallbladder, and incomplete visualization of the intestinal tract raising possibility of partial obstruction. Hospital Course Hospital Course: Patient was given IV Dilaudid on admission to calm her abdominal pain. She continued to have episodes of retching the remainder of the first day of admission by the following morning symptoms had resolved. Patient underwent [address] scans of the abdomen and pelvis after her first scan in the ER. Second scan was with IV and oral contrast to assess a soft tissue mass in the mid abdomen. This was inconclusive and CTA and CTV were performed which ruled out SMA aneurysm and SMV varix. It is believed the soft tissue mass is external to the superior mesenteric artery but not amenable to biopsy. Dr. Gomez of the surgical service was consulted. After consultation with Dr. Gomez and radiology it has been recommended that patient will proceed with a PET CT scan as an outpatient. Once scanning was complete patient's diet was slowly advanced. She tolerated clear liquids and full liquids although continued to have some mild discomfort with ingestion and complains of abdominal swelling although there was never visible abdominal swelling. Patient continued to have mild epigastric and right upper quadrant tenderness believed to be related to her pancreatitis. Abdominal ultrasound ruled out any signs of cholecystitis. Patient ambulated without difficulty and reported improvement in pain with ambulation as well as with urination. Once patient was tolerating diet she was discharged home. Patient will follow-up in the office on July 01 where further outpatient testing will be arranged. Patient had hypokalemia on admission that was corrected with IV and oral supplementation Objective Vital signs: Temp Pulse Resp BP Pulse Ox 99.5 F 84 16 121/74 99 06/27/20 04:50 06/27/20 04:50 06/27/20 04:50 06/27/20 04:50 06/27/20 04:50 no acute distress - *Routine Respiratory Exam Present: CTA bilaterally - *Routine Cardiovascular Exam Present: RRR - *Routine Abdominal Exam Present: tenderness (Epigastric right upper quadrant). Absent: distended, rebound, guarding, firm Results Labs on day of discharge: Labs from last 24 hours 06/26/20 06/26/20 06:34 06:34 Total Bilirubin 0.6 Direct Bilirubin 0.4 Conjugated Bilirubin 0.0 Indirect Bilirubin 0.2 Unconjugated Bilirubin 0.2 AST 34 ALT 12 D Alkaline Phosphatase 65 Total Protein 6.2 L Albumin 3.5 D Amylase 66 Lipase 110 DS: Diagnosis - Discharge Diagnosis (1) Pancreatitis Status: Acute (2) Calculus of kidney Status: Acute (3) Hypokalemia Status: Resolved (4) Generalized abdominal pain Status: Acute (5) Intraabdominal mass Status: Acute Discharge Plan - Patient Discharge Instructions ACTIVITY: Continue current activity DIET: continue same diet Patient Instructions: DI for Acute A
[2020-06-27 08:00] VITALS: BP 128/68; PULSE 94; RESP 18; TEMP 36.8; O2SAT 99
--- NOTE | 2020-06-27 08:30 | PC.NURSE ---
PT ASSESSMENT COMPLETED AT THIS TIME. BILATERAL LUNG SOUNDS CLEAR AND NO EDEMA NOTED. PAIN WITH ASUCLATION AND PALPATION TO RUQ AND R SIDE THAT RADIATES TO R FLANK. PT RATES THIS PAIN A 6/10 ON VERBAL SCALE AND WAS MEDICATED PER EMAR AT THIS TIME. X4 QUADS HYPERACTIVE BOWEL SOUNDS. CRYSTALS NOTED IN STRAINER WHEN STRAINING URINE. PT DENIES ANY FURTHER NEEDS AT THIS TIME. WILL CONTINUE TO OBSERVE.
--- NOTE | 2020-06-27 10:38 | PC.NURSE ---
DC INSTRUCTIONS GONE OVER WITH PT AT THIS TIME. QUESTIONS ENCOURAGED AND ANSWERED. PT VU.
--- NOTE | 2020-06-27 10:58 | PC.NURSE ---
PT WHEELED TO PRIVATE VEHICLE AT THIS TIME VIA WHEELCHAIR X1 [facility].
== END 2020-06-27 10:58 | disposition home or self-care (01) ==
LOC: ER 12:37 → OB 13:21
PROVIDERS: Surgery; Admitting Provider Family Medicine; Emergency Provider Emergency Medicine; PCP Family Medicine; Visit Provider Family Medicine
DX: K85.90 Acute pancreatitis without necrosis or infection, unspecified (principal); N20.0 Calculus of kidney; Z79.899 Other long term (current) drug therapy
CPT/HCPCS: 36415; 74175; 74176; 74177; 76700; 80048; 80053; 80076; 81001; 82150; 83605; 83690; 83735; 84484; 85025; 86328; 93005; 96365; 96375; 96376; 99284; G0378; J2405; Q9967

== ENCOUNTER → 2020-07-17 09:19 | Outpatient (CLI) | payer MEDICARE, SELFPAY ==
--- NOTE | 2020-07-17 09:26 | NM_ITS ---
PROCEDURE: NM HEPATOBILIARY W PHARM CLINICAL INDICATION: RUQ PAIN COMPARISON: CT CT ABDOMEN PELVIS W CON from 06/24/2020 US US ABDOMEN COMPLETE from 06/25/2020 FINDINGS: 8.14 millicuries technetium Choletechnitate was administered followed by image acquisition. Hepatic biliary system was visible by 5 minutes. Gallbladder visible by 15 minutes slightly prolonged. There is a normal ejection fraction with 91 percent ejection by 30 minutes. IMPRESSION: Unremarkable hepatobiliary scan Dictated by: Amber Cardona MD 07/17/2020 12:53 Amber Cardona MD in [place] 07/17/2020 12:53
--- NOTE | 2020-07-17 09:50 | HMH.ITSHM ---
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 []MIRALAX POTASSIUM ZOFRAN NORCO FAMOTIDINE AMLODIPINE FOSAMAX
== END ==
PROVIDERS: PCP Family Medicine; Visit Provider Family Medicine
DX: R10.11 Right upper quadrant pain (principal)
CPT/HCPCS: 78227; A9537; J2805

== ENCOUNTER → 2020-08-19 08:17 | Outpatient (CLI) | payer MEDICARE, SELFPAY ==
[2020-08-19 10:38] LABS: Coronavirus 19 IgG Antibody Negative (Negative); Coronavirus 19 IgM Antibody Negative (Negative)
== END ==
PROVIDERS: Visit Provider Ophthalmology
DX: Z01.812 Encounter for preprocedural laboratory examination (principal); Z20.822 Contact with and (suspected) exposure to COVID-19
CPT/HCPCS: 36415; 86328

== ENCOUNTER 2020-08-20 08:19 | Day surgery (SDC) | payer MEDICARE, SELFPAY ==
[2020-08-13 11:22] VITALS: BMI 20.1
[2020-08-20 08:46] VITALS: BP 162/89; PULSE 104; RESP 18; TEMP 36.6; O2SAT 99
[2020-08-20 10:56] VITALS: BP 161/72; PULSE 71; RESP 18; TEMP 36.3; O2SAT 96
== END 2020-08-20 10:56 | disposition home or self-care (01) ==
LOC: OUTP 08:20
PROVIDERS: PCP Family Medicine; Visit Provider Ophthalmology
PROC: (CPT 66821; principal; 2020-08-20 09:00)
DX: H26.492 Other secondary cataract, left eye (principal); H25.811 Combined forms of age-related cataract, right eye; Z96.1 Presence of intraocular lens; Z79.899 Other long term (current) drug therapy; M19.90 Unspecified osteoarthritis, unspecified site; I10 Essential (primary) hypertension; Z83.3 Family history of diabetes mellitus; Z82.49 Family history of ischemic heart disease and other diseases of the circulatory system
CPT/HCPCS: 66821

== ENCOUNTER → 2021-03-06 08:19 | Outpatient (CLI) | payer MEDICARE, SELFPAY ==
--- NOTE | 2021-03-06 08:25 | MM_ITS ---
PROCEDURE INFORMATION: Exam: MG Bilateral Screening 3D Mammography Exam date and time: 03/06/2021 8:25 AM Age: 75 years old Clinical indication: Encounter for screening mammogram for malignant neoplasm of breast TECHNIQUE: Imaging protocol: Bilateral screening tomosynthesis and 2D mammography including computer-aided detection (CAD) when performed. COMPARISON: Mammogram dated 03/04/2020 FINDINGS: MAMMOGRAPHY: Breast composition: The breast tissue is heterogeneously dense, which may obscure small masses. Mass: None. Architectural distortion: None. Calcifications: No suspicious calcifications. Asymmetric density: None. Skin thickening: None. Axillary adenopathy: None. IMPRESSION: No mammographic evidence of malignancy. Annual screening is recommended unless otherwise clinically indicated. ASSESSMENT: BI-RADS Category 1: Negative
== END ==
PROVIDERS: PCP Family Medicine; Visit Provider Family Medicine
DX: Z12.31 Encounter for screening mammogram for malignant neoplasm of breast (principal)
CPT/HCPCS: 77063; 77067

== ENCOUNTER 2021-05-02 15:45 | Emergency (ER) | payer MEDICARE, SELFPAY ==
[2021-05-02 15:46] VITALS: BP 136/75; PULSE 91; RESP 16; TEMP 37.1; O2SAT 99; BMI 20.7
--- NOTE | 2021-05-02 16:33 | CT_ITS ---
PROCEDURE INFORMATION: Exam: CT Abdomen And Pelvis Without Contrast Exam date and time: 05/02/2021 4:33 PM Age: 75 years old Clinical indication: Abdominal pain; Additional info: Pain, mass, h/o stomach cancer TECHNIQUE: Imaging protocol: Computed tomography of the abdomen and pelvis without contrast. Radiation optimization: All CT scans at this facility use at least one of these dose optimization techniques: automated exposure control; mA and/or kV adjustment per patient size (includes targeted exams where dose is matched to clinical indication); or iterative reconstruction. COMPARISON: CT ABDOMEN PELVIS W CON 06/24/2020 4:10 PM FINDINGS: Lungs: Bibasilar pulmonary opacities and pulmonary nodules are similar to prior. Focal pleural thickening over the right hemidiaphragm centrally is stable. Heart: Trace pericardial effusion. Liver: Unchanged hypodensity in the liver. Gallbladder and bile ducts: Dilatation of the CBD up to about 10 mm which is more than prior. Pancreas: No ductal dilation. Spleen: No splenomegaly. Adrenal glands: Normal. No mass. Kidneys and ureters: Renal hypodensities cannot be further characterize in the study. A few small calcifications are seen in the right kidney lower pole which are nonobstructing. There is a 2 mm punctate calculus in the right kidney upper pole. Some calcium in the left kidney posteriorly appears to be related to a hypodensity. Another cortical calcification is again seen in the left kidney upper pole. Stomach and bowel: Moderate stool burden. Appendix: No evidence of appendicitis. Intraperitoneal space: Unremarkable. No free air. No significant fluid collection. Vasculature: Unremarkable. No abdominal aortic aneurysm. Lymph nodes: Unremarkable. No enlarged lymph nodes. Urinary bladder: Unremarkable as visualized. Reproductive: Unremarkable as visualized. Bones/joints: Unremarkable. No acute fracture. Soft tissues: Unremarkable. IMPRESSION: 1. New dilatation of the CBD up to 10 mm without cause identified. 2. New trace pericardial effusion. 3. Numerous other incidental findings are stable. COMMENTS: Consistent with the [employer]'s Incidental Findings Committee white paper (J Am Serge Radiol 2018): Any incidental renal lesion less than 1 cm or classified as too small to characterize, or any incidental cystic renal lesion characterized as simple-appearing, is likely benign. No follow-up imaging is recommended for these lesions per consensus recommendations based on imaging criteria.
[2021-05-02 16:44] VITALS: BMI 20.7
--- NOTE | 2021-05-02 16:59 | HMH.EDGENADL ---
ED Disposition Clinical Impression: Biliary colic Nausea & vomiting Qualifiers: Vomiting type: unspecified Qualified Code(s): R11.2 - Nausea with vomiting, unspecified Disposition: Home, Self-Care Condition on Discharge: Good Instructions: DI for Biliary Colic Prescriptions: Ondansetron [Zofran 4mg ODT] 4 mg PO BIDP PRN #10 tab PRN Reason: Nausea Transmission Status: Pending to [id number] Referrals: Armani Campa MD [Primary Care Provider] - Logan Hwang MD [Staff Physician] - - Critical Care Critical Care Time: No Attestation: On 05/02/21, the high probability of a clinically significant, sudden or life threatening deterioration of the following system(s) required my full and direct attention, intervention and personal management. The time I documented below is in addition to time spent performing reported procedures but includes the following listed in this critical care notation. Medical Decision Making - Medical Records Medical records reviewed: Yes: I reviewed the patient's medical records. - Abelardo Inquiry Pt receiving controlled substance: No Vital Signs: 05/02/21 15:46 Temperature 98.7 F Temperature Source Oral Pulse Rate [Right Radial] 91 H Respiratory Rate 16 Blood Pressure [Right Arm] 136/75 Blood Pressure Mean [Right Arm] 95 Blood Pressure Source [Right Arm] Automatic Cuff Blood Pressure Position [Right Arm] Sitting 02 Sat by Pulse Oximetry 99 Oxygen Delivery Method Room Air - Lab Data Lab Results 05/02/21 17:28: Urine Color Yellow, Urine Appearance Clear, Urine pH 8.5, Ur Specific [place] 1.015, Urine Protein Negative, Urine Glucose (UA) Negative, Urine Ketones Negative, Urine Blood Negative, Urine Nitrate Negative, Urine Bilirubin Negative, Urine Urobilinogen 0.2, Ur Leukocyte Esterase Negative, Urine RBC None, Urine WBC Occasional, Ur Squamous Epith Cells Occasional, Urine Bacteria Trace 05/02/21 17:28: WBC 5.4, RBC 3.98 L, Hgb 11.3 L, Hct 35.2 L, MCV 88.5, MCH 28.3, MCHC 32.0, RDW 15.8, Plt Count 308, MPV 9.1, Neut % (Auto) 86.8 H, Lymph % (Auto) 7.5 L, [place] % (Auto) 4.4, Eos % (Auto) 0.6, Baso % (Auto) 0.6, Neut # (Auto) 4.7, Lymph # (Auto) 0.4 L, [place] # (Auto) 0.2, Eos # (Auto) 0.0, Baso # (Auto) 0.0, Total Counted 100, Neutrophils % (Manual) 84 H, Lymphocytes % (Manual) 12, Monocytes % (Manual) 4, Platelet Estimate Normal, RBC Morphology Normal 05/02/21 17:28: Sodium 136, Potassium 3.6, Chloride 100, Carbon Dioxide 29, Anion Gap 10.6, BUN 12, Creatinine 0.60, Estimated Creat Clear 37, Estimated GFR 97, Est GFR ( Amer) 117, Glucose 119 H, Calcium 10.2, Total Bilirubin 0.6, AST 55 H, ALT 33, Alkaline Phosphatase 100, Total Protein 8.3 H D, Albumin 4.9, Globulin 3.4 H, Albumin/Globulin Ratio 1.4, Lipase 213 Result diagrams: 05/02/21 17:28 05/02/21 17:28 Orders (Tests/Meds): ED MEDICATIONS Generic Name Dose Route Start Last Admin Trade Name Freq PRN Reason Stop Dose Admin Sodium Chloride 1,000 mls @ 999 mls/hr 05/02/21 16:45 05/02/21 17:26 Sod Chlor 0.9% 1000ml Bag IV 05/02/21 17:45 999 mls/hr .Q1H1M SHIRA Administration Sodium Chloride 8 ml 05/02/21 16:32 Sodium Chloride 0.9% 10ml Vial IV 06/01/21 16:31 NEEDED PRN dilute pepcid Discontinued Medications Generic Name Dose Route Start Last Admin Trade Name Freq PRN Reason Stop Dose Admin Famotidine 20 mg 05/02/21 16:32 05/02/21 17:26 Famotidine 20mg/2ml Vial IV 05/02/21 16:33 20 mg ONCE ONE Administration Ondansetron HCl 4 mg 05/02/21 16:32 05/02/21 17:26 Ondansetron 4mg/2ml Vial IV 05/02/21 16:33 4 mg ONCE ONE Administration - CT Data CT Scan: Abdomen, Pelvis Time Received: 18:[address] Reviewed: Yes: I have reviewed the patient's CT results, I have viewed the radiologist's interpretation Findings Narrative: IMPRESSION: 1. New dilatation of the CBD up to 10 mm without cause identified. 2. New trace pericardial effusion. 3. Nu
[2021-05-02 17:47] LABS: Basophils % 0.6 % (0.1-2.0); Eosinophils % 0.6 % (0.1-12.0); Hematocrit 35.2 % (37.0-47.0); Hemoglobin 11.3 g/dL (12.2-16.2); Lymphocytes # 0.4 K/mm3 (0.7-4.5); Lymphocytes % 7.5 % (10-50); Mean Corpuscular Hemoglobin 28.3 pg (27.0-31.2); Mean Corpuscular Volume 88.5 fl (81-99); Mean Platelet Volume 9.1 fl (7.4-10.4); Monocytes # 0.2 K/mm3 (0.1-1.0); Monocytes % 4.4 % (1.7-9.3); Neutrophils # 4.7 K/mm3 (1.8-7.8); Neutrophils % 86.8 % (37.0-80.0); Platelet Count 308 K/mm3 (142-424); Red Blood Count 3.98 M/mm3 (4.20-5.40); Red Cell Distribution Width 15.8 % (11.5-17.5); White Blood Count 5.4 K/mm3 (4.8-10.8)
[2021-05-02 17:48] LABS: MANUAL DIFFERENTIAL MANUAL DIFFERENTIAL (MANUAL DIFF)
[2021-05-02 17:56] LABS: Alanine Aminotransferase 33 U/L (12-78); Albumin Level 4.9 g/dl (3.5-5.0); Albumin/Globulin Ratio 1.4 (1.1-1.8); Alkaline Phosphatase 100 U/L (38-126); Anion Gap 10.6 mEq/L (5-15); Aspartate Amino Transferase 55 U/L (14-36); Bilirubin,Total 0.6 mg/dl (0.2-1.3); Blood Urea Nitrogen 12 mg/dl (7-17); Calcium 10.2 mg/dl (8.4-10.2); Carbon Dioxide 29 mmol/L (22.0-30.0); Chloride 100 mmol/L (98-107); Creatinine Clearance Estimated 37 mL/min (50-200); Estimated Glomerular Filt Rate 97 ml/min (>60); GFR (African American) 117 ML/MIN (>60); Globulin 3.4 g/dL (1.3-3.2); Glucose 119 mg/dl (74-100); Lipase 213 U/L (23-300); Potassium 3.6 mmoL/L (3.5-5.1); Sodium 136 mmol/L (136-145); Total Protein,Serum 8.3 g/dl (6.3-8.2)
[2021-05-02 18:01] LABS: Microscopic, Urine URINE MICROSCOPIC (MICROSCOPIC)
[2021-05-02 18:05] LABS: Appearance,Urine CLEAR (Clear); Bilirubin,Urine Negative (Negative); Blood, Urine Negative (Negative); Color,Urine YELLOW (Yellow); Glucose,Urine (UA) Negative (Negative); Ketones,Urine Negative (Negative); Leukocyte Esterase,Urine Negative (Negative); Nitrate,Urine Negative (Negative); PH,Urine 8.5 (5.0-8.5); Protein,Urine Negative (Negative); Specific Gravity, Urine 1.015 (1.005-1.030); Urobilinogen,Urine 0.2 EU/dl (0.2)
[2021-05-02 18:18] LABS: Lymphocytes % 12 % (10-50); Monocytes % 4 % (2-9); Neutrophils % 84 % (42-76); Platelet Estimate Normal; RBC Morphology Normal; Total Cells Counted 100
[2021-05-02 18:28] LABS: Bacteria,Urine Trace /lpf; Squamous Epithelial Cell,Urine Occasional #/hpf (0-5); WBC,Urine Occasional #/hpf (0-3)
[2021-05-02 19:10] VITALS: BP 137/72; PULSE 86; RESP 18; TEMP 36.9; O2SAT 99
== END 2021-05-02 19:17 | disposition home or self-care (01) ==
PROVIDERS: Emergency Provider Emergency Medicine; PCP Family Medicine
DX: K80.50 Calculus of bile duct without cholangitis or cholecystitis without obstruction (principal); I10 Essential (primary) hypertension
CPT/HCPCS: 74176; 80053; 81001; 83690; 85007; 85025; 96365; 96375; 99283; J2405

== ENCOUNTER 2021-06-27 11:00 | Outpatient (RCR) | payer MEDICARE, SELFPAY | END 2021-06-27 11:05 | disposition home or self-care (01) | LOC: PT 11:00 | PROVIDERS: PCP Family Medicine; Visit Provider Orthopaedic Surgery Adult Reconstructive Orthopaedic Surgery | DX: M25.562 Pain in left knee (principal); Z96.652 Presence of left artificial knee joint | CPT/HCPCS: 97010; 97014; 97110; 97140; 97163; 97164; G0283 ==

== ENCOUNTER 2022-06-30 16:28 | Emergency (ER) | payer MEDICARE, SELFPAY ==
[2022-06-30 16:30] VITALS: BP 160/83; PULSE 96; RESP 18; TEMP 36.7; O2SAT 99; BMI 20.7
[2022-06-30 16:42] VITALS: BP 160/83; PULSE 86; O2SAT 99
--- NOTE | 2022-06-30 16:53 | CT_ITS ---
PROCEDURE INFORMATION: Exam: CT Head Without Contrast Exam date and time: 06/30/2022 5:03 PM Age: 76 years old Clinical indication: Injury or trauma; Fall; Blunt trauma (contusions or hematomas); Additional info: Fall, has painful knot and swelling around right eye TECHNIQUE: Imaging protocol: Computed tomography of the head without contrast. Radiation optimization: All CT scans at this facility use at least one of these dose optimization techniques: automated exposure control; mA and/or kV adjustment per patient size (includes targeted exams where dose is matched to clinical indication); or iterative reconstruction. Other protocol: This patient has received 2 known CTs and 0 known cardiac nuclear medicine studies in the 12 months prior to the current study. COMPARISON: No relevant prior studies available. FINDINGS: Brain: There is no evidence of acute intracranial hemorrhage, extra-axial collection or locoregional mass effect. There are scattered hypodensities in the periventricular and subcortical white matter. The appearance is nonspecific, but most likely represents chronic small vessel disease in a person of this age Cerebral ventricles: The ventricles, sulci and cisterns are normal in size and configuration for patient's age. No hydrocephalus or midline structure shift Pituitary gland and sella: Sellar/parasellar structures, craniocervical junction and orbits are unremarkable Paranasal sinuses: Visualized sinuses are unremarkable. No fluid levels. Mastoid air cells: Opacification of right mastoid air cells noted. Bones/joints: No calvarial fracture Soft tissues: Large right frontal scalp hematoma. IMPRESSION: 1. No acute intracranial abnormality. No calvarial fracture. 2. Large right frontal scalp hematoma.
--- NOTE | 2022-06-30 16:53 | CT_ITS ---
PROCEDURE INFORMATION: Exam: CT Maxillofacial Without Contrast Exam date and time: 06/30/2022 5:05 PM Age: 76 years old Clinical indication: Injury or trauma; Blunt trauma (contusions or hematomas); Forehead and orbit/periorbital; Patient HX: Fall, has painful knot and swelling around right eye TECHNIQUE: Imaging protocol: Computed tomography of the face without contrast. Radiation optimization: All CT scans at this facility use at least one of these dose optimization techniques: automated exposure control; mA and/or kV adjustment per patient size (includes targeted exams where dose is matched to clinical indication); or iterative reconstruction. Other protocol: This patient has received 2 known CTs and 0 known cardiac nuclear medicine studies in the 12 months prior to the current study. COMPARISON: CT HEAD/BRAIN WO CON 06/30/2022 5:03 PM FINDINGS: Orbital cavities: Globes are symmetric. Orbital rims/bright are intact. Intraconal fat appear unremarkable. Lacrimal glands are unremarkable. Bones/joints: No acute fracture of the maxillofacial region. Paranasal sinuses: Normal. No air-fluid levels. Mastoid air cells: Opacification of right mastoid air cells noted. Soft tissues: Large right frontal scalp hematoma. IMPRESSION: 1. No acute fracture of the maxillofacial region. 2. Large right frontal scalp hematoma.
--- NOTE | 2022-06-30 16:53 | CT_ITS ---
PROCEDURE INFORMATION: Exam: CT Cervical Spine Without Contrast Exam date and time: 06/30/2022 5:08 PM Age: 76 years old Clinical indication: Injury or trauma; Blunt trauma; Patient HX: Fall, has painful knot and swelling around right eye TECHNIQUE: Imaging protocol: Computed tomography of the cervical spine without contrast. Radiation optimization: All CT scans at this facility use at least one of these dose optimization techniques: automated exposure control; mA and/or kV adjustment per patient size (includes targeted exams where dose is matched to clinical indication); or iterative reconstruction. Other protocol: This patient has received 2 known CTs and 0 known cardiac nuclear medicine studies in the 12 months prior to the current study. COMPARISON: CT FACIAL BONES WO CON 06/30/2022 5:05 PM FINDINGS: Bones/joints: Vertebral alignment is maintained. There is preservation of vertebral body heights. Facet joints are aligned. Odontoid process is intact. Atlantoaxial interval maintained. No acute fracture. Uncovertebral and facet arthropathy result in varying degrees of neural foraminal narrowing at multiple levels. Mastoid air cells: Opacification of right mastoid air cells noted. Lungs: Lung apices are normal. Soft tissues: Prevertebral and paravertebral soft tissues are maintained IMPRESSION: No acute fracture. No traumatic subluxation.
--- NOTE | 2022-06-30 16:58 | PC.NURSE ---
notified rad of ct orders
--- NOTE | 2022-06-30 17:21 | XR_ITS ---
PROCEDURE INFORMATION: Exam: XR Right Humerus Exam date and time: 06/30/2022 5:46 PM Age: 76 years old Clinical indication: Injury or trauma; Fall; Blunt trauma (contusions or hematomas); Arm, upper; Right; Additional info: Fall, injury TECHNIQUE: Imaging protocol: Radiologic exam of the Right humerus. Views: 2 or more views. COMPARISON: CR SHOULDCMRT XR shoulder RT min 2V 09/02/2017 3:04 PM FINDINGS: Bones/joints: No visible humeral fracture or dislocation. 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 Age-indeterminate 6 and 7 right lateral rib fractures. Soft tissues: Normal. IMPRESSION: 1. No visible humeral fracture or dislocation. 2. 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 Age-indeterminate 6 and 7 right lateral rib fractures.
--- NOTE | 2022-06-30 17:22 | HMH.EDGENADL ---
Discharge Plan Disposition Patient Disposition: Home, Self-Care Condition: Good Prescriptions Prescriptions: No Action polyethylene glycol 3350 17 GM powder in packet 17 gm PO DAILY potassium chloride 20 MEQ tablet extended release 20 meq PO DAILY famotidine 20 MG tablet 20 mg PO HS meloxicam 15 MG tablet 15 mg PO DAILY cranberry fruit concentrate 250 MG tablet,chewable 500 mg PO DAILY ondansetron 4 MG tablet,disintegrating 4 mg PO BIDP PRN (Reason: Nausea) Qty: 10 0RF alendronate 70 MG tablet 70 mg PO WEEKLY amlodipine 10 MG tablet 10 mg PO DAILY Referrals Follow up/Referrals: Armani Campa MD [Primary Care Provider] - See instructions Activity Restrictions/Add. Instructions Additional Instructions/Restrictions: Ice 20 minutes 4 times a day to swollen areas. Sleep with head elevated on 2-3 pillows for the next 3 days. Tylenol as needed for pain. Clinical Impressions Clinical Impression: Traumatic hematoma of forehead, Facial hematoma, Arm contusion, Fall Instructions Patient Instructions: DI for Hematoma (Bruise), How to Prevent Falls, DI for Closed Head Injury Discharge ED Provider: Ld Yusuf General Adult HPI General Chief complaint: Fall Stated complaint: 06/30@1400At home facial and R shoulder Time Seen by Provider: 06/30/22 16:59 Mode of Arrival: Wheelchair Source of Information: Patient Limitations: No Limitations Description of Symptoms (Recalled from ER Triage Doc. 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 Pt has tennis ball sized raised area to R forehead area, bruising noted. Abrasions noted to facial cheek area and beside nose. Pt reports was wearing glasses when she fell. Pt states she tripped causing her to fall, denies LOC . PT states not on blood thinner. Swollen, bruised area to R bicep noted. History of Present Illness HPI narrative: Patient states that she had a mechanical fall, caught her boot on the ground causing her to trip and fall. She landed on her head and right facial area. Denies loss of consciousness. Denies neck pain. She also has a bruise on her right arm. She is not on any blood thinners. No loss of vision. No numbness or weakness. No vomiting. Related Data Home Medications Medication Instructions Recorded Confirmed famotidine 20 mg tablet 20 mg PO HS GERD 06/19/20 08/20/20 polyethylene glycol 3350 17 gram 17 gm PO DAILY CONSTIPATION 06/19/20 08/20/20 oral powder packet potassium chloride 20 mEq 20 meq PO DAILY Supplement 06/19/20 08/20/20 tablet,extended release alendronate 70 mg tablet 70 mg PO WEEKLY Osteoporosis 06/24/20 08/20/20 amlodipine 10 mg tablet 10 mg PO DAILY Hypertension 06/24/20 08/20/20 cranberry fruit concentrate 250 mg 500 mg PO DAILY Asthma 08/20/20 08/20/20 chewable tablet meloxicam 15 mg tablet 15 mg PO DAILY Pain 08/20/20 08/20/20 Previous Rx's Medication Instructions Recorded ondansetron 4 mg disintegrating 4 mg PO BIDP PRN Nausea #10 tabs 05/02/21 tablet Allergies Allergy/AdvReac Type Severity Reaction Status Date / Time No Known Allergies Allergy Verified 08/20/20 08:41 [facility] Disclaimer: The information contained in this section may have been updated after the patient was seen, as this information can be updated by other users. 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
[2022-06-30 17:31] VITALS: BP 158/69; PULSE 91; O2SAT 98
[2022-06-30 18:00] VITALS: BP 163/80; PULSE 86; O2SAT 99
[2022-06-30 19:02] VITALS: BP 132/75; PULSE 87; RESP 20; TEMP 36.6; O2SAT 96
== END 2022-06-30 19:04 | disposition home or self-care (01) ==
PROVIDERS: Emergency Provider Emergency Medicine; PCP Family Medicine
DX: S00.83XA Contusion of other part of head, initial encounter (principal); S40.021A Contusion of right upper arm, initial encounter; W01.0XXA Fall on same level from slipping, tripping and stumbling without subsequent striking against object, initial encounter
CPT/HCPCS: 70450; 70486; 72125; 73060; 99285

== ENCOUNTER → 2023-04-14 14:51 | Outpatient (CLI) | payer MEDICARE, SELFPAY ==
--- NOTE | 2023-04-14 14:55 | MM_ITS ---
PROCEDURE INFORMATION: Exam: MG Bilateral Screening 3D Mammography Exam date and time: 04/14/2023 3:02 PM Age: 77 years old Clinical indication: Screening. No family history of breast cancer. TECHNIQUE: Imaging protocol: Bilateral Screening tomosynthesis and 2D mammography including computer-aided detection (CAD) when performed. Limited positioning related to mobility impairment, limiting upper MLO projections. COMPARISON: 1. MG MM DIG SCREENING MAMM BI W/CAD 03/06/2021 8:26 AM 2. MG MM DIG SCREENING MAMM BI W/CAD 03/04/2020 4:31 PM 3. MG SCBI MM Dig screening mamm BI w/CAD 07/27/2018 3:28 PM 4. MG DXLT MM Dig mamm DX unilat LT CAD 01/28/2018 2:22 PM FINDINGS: MAMMOGRAPHY: Breast composition: The breasts are heterogeneously dense, which may obscure small masses. Mass: None. Architectural distortion: None. Calcifications: No suspicious calcifications. Asymmetric density: None. Skin thickening: None. Axillary adenopathy: None. IMPRESSION: see comment Some limitation in upper breast MLO due to limited mobility and positioning, this accentuates the importance of clinical breast exam. Sonography can be added as clinically indicated. No mammographic evidence of malignancy. Annual screening mammogram recommended unless otherwise clinically indicated. ASSESSMENT: BI-RADS Category 1: Negative
== END ==
LOC: RAD 14:51
PROVIDERS: PCP Family Medicine; Visit Provider Family Medicine
DX: Z12.31 Encounter for screening mammogram for malignant neoplasm of breast (principal)
CPT/HCPCS: 77063; 77067

== ENCOUNTER 2023-06-22 08:57 | Day surgery (SDC) | payer MEDICARE, SELFPAY ==
[2023-06-17 11:24] VITALS: BMI 19.3
[2023-06-22] VITALS (8 sets, daily range): BP systolic 130–187; BP diastolic 65–87; PULSE 68–90; RESP 16–19; TEMP 36.4–36.6; O2SAT 96–98
[2023-06-22] MEDS: TETRACAINE 0.5% OPTH SOL 15ML OP ×3 (09:17→09:18)
[2023-06-22] MEDS: CYCLOPENTOLATE 2% OPHTH SOLN 2ML BOTTLE OP ×3 (09:17→09:18)
[2023-06-22] MEDS: PHENYLEPHRINE 2.5% OPHTH SOLN 2ML 0.0500000000000000028 ML OP ×3 (09:18)
[2023-06-22] MEDS: MIDAZOLAM 2MG/2ML VIAL 1 MG IV (10:12)
[2023-06-22] MEDS: LIDOCAINE 1% PF 2ML AMPULE 2 ML IJ (10:19)
[2023-06-22] MEDS: TRI-MOXI 15MG/1MG/ML 1ML OPHTH VIAL 1 ML OP (10:19)
[2023-06-22] MEDS: TIMOLOL 0.5% OPTH SOLN 5ML OP (10:19)
== END 2023-06-22 10:45 | disposition home or self-care (01) ==
PROVIDERS: PCP Family Medicine; Visit Provider Ophthalmology
PROC: (CPT 66984; principal; 2023-06-22 12:00)
DX: H25.811 Combined forms of age-related cataract, right eye (principal)
CPT/HCPCS: 66984; V2632

== ENCOUNTER 2023-08-26 15:48 | Outpatient (CLI) | payer MEDICARE, SELFPAY ==
--- NOTE | 2023-08-26 15:53 | XR_ITS ---
FINAL REPORT CLINICAL HISTORY: R hip pain, no injury COMPARISON: None FINDINGS: RIGHT HIP 3 views of the right hip demonstrate no acute fracture or dislocation. The joint spaces appear normal. The visualized bony structures are well aligned. No soft tissue abnormality is seen. IMPRESSION: No acute bony abnormality. Reviewed, Interpreted and Dictated by Padmini Duncan MD Transcribed by JACK Nova Authenticated and [facility]
== END 2023-08-26 23:59 ==
LOC: RAD 15:49
PROVIDERS: PCP Family Medicine; Visit Provider Student in an Organized Health Care Education/Training Program
DX: M25.551 Pain in right hip (principal)
CPT/HCPCS: 73502

== ENCOUNTER 2023-11-17 17:56 | Emergency (ER) | payer MEDICARE, SELFPAY ==
[2023-11-17 17:58] VITALS: BP 147/83; PULSE 100; RESP 18; TEMP 36.6; O2SAT 94; BMI 18.8
--- NOTE | 2023-11-17 18:11 | ED_ITS ---
<Statement entered by Lg Ventura MD - 11/17/23 23:33> I was consulted by the TONYA, and we discussed the complexity of the problems being addressed. I approved the treatment and management plan for this patient's care in the emergency department, thus performing a substantive portion of the medical decision making. Lg Ventura MD, AN, FACEP Discharge Plan Disposition Patient Disposition: Home, Self-Care Condition: Good Prescriptions Prescriptions: No Action calcium carbonate [Calcium 600] 600 mg calcium (1,500 mg) tablet 600 mg PO DAILY loratadine [Claritin] 10 mg tablet 10 mg PO DAILY polyethylene glycol 3350 [Miralax] 17 gram/dose powder 17 g PO DAILY omeprazole 40 mg capsule,delayed release(DR/EC) 40 mg PO DAILY sertraline 25 mg tablet 25 mg PO DAILY Patient Comments: TAKE 1 TABLET BY MOUTH ONCE DAILY ferrous sulfate 325 mg (65 mg iron) tablet,delayed release (DR/EC) 325 mg PO metoclopramide HCl 10 mg tablet 10 mg PO DAILY Myrbetriq 25 mg tablet extended release 24 hr PO octreotide acetate 50 mcg/mL solution 50 mcg SQ ONCE prednisone 10 mg tablet 10 mg PO BID Qty: 10 0RF potassium chloride 20 MEQ tablet extended release 20 meq PO DAILY famotidine 20 MG tablet 20 mg PO HS meloxicam 15 MG tablet 15 mg PO DAILY alendronate 70 MG tablet 70 mg PO WEEKLY amlodipine 10 MG tablet 10 mg PO DAILY Referrals Follow up/Referrals: Armani Campa MD [Primary Care Provider] - See instructions Zac Gomez MD [Staff Physician] - See instructions Activity Restrictions/Add. Instructions Additional Instructions/Restrictions: Please follow-up as scheduled with the [facility] [place]. Return to ER for any worsening signs or symptoms as needed. I have referred you to Dr. Gomez for evaluation of port placement. You course could choose a surgeon of your choice. Clinical Impressions Clinical Impression: Nausea vomiting and diarrhea Instructions Patient Instructions: DI for Diarrhea and Traveler's Diarrhea -- Adult, DI for Diarrhea and Traveler's Diarrhea -- Child, DI for Nausea -- Adult, DI for Nausea -- Child Discharge ED Provider: Lg Ventura General Adult HPI General Chief complaint: Nausea/Vomiting/Diarrhea Stated complaint: diarrhea,cant pee,nausea Time Seen by Provider: 11/17/23 18:10 History of Present Illness HPI narrative: She presents for evaluation of nausea vomiting and diarrhea. 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 She is currently managed with lanreotide primarily however the side effect that is diarrhea for which she takes octreotide which can cause constipation. Patient recently had the latter feeling constipated hence she took MiraLAX which relieved the constipation but now she feels extremely dehydrated. She also reports nausea but no specific vomiting. She denies fever chills hemoptysis hematochezia melena. Patient is followed at the [facility] at the emergency [place]. They did contact them however it was late in the day and they were ultimately told to come to the emergency department for evaluation by the [facility] staff. Related Data Home Medications Medication Instructions Recorded Confirmed famotidine 20 mg tablet 20 mg PO HS GERD 06/19/20 06/17/23 potassium chloride 20 mEq 20 meq PO DAILY Supplement 06/19/20 08/26/23 tablet,extended release alendronate 70 mg tablet 70 mg PO WEEKLY Osteoporosis 06/24/20 08/26/23 amlodipine 10 mg tablet 10 mg PO DAILY Hypertension 06/24/20 08/26/23 meloxicam 15 mg tablet 15 mg PO DAILY Pain 08/20/20 08/26/23 calcium carbonate (Calcium 600) 600 mg PO DAILY 08/26/23 08/26/23 ferrous sulfate 325 mg (65 mg 325 mg PO 08/26/23 08/26/23 iron) tablet,delayed release loratadine 10 mg tablet (Claritin) 10 mg PO DAILY 08/26/23 08/26/23 metoclopramide HCl 10 mg tablet 10 mg PO DAILY 08/26/23 08/26/23 mirabegron 25 mg tablet,extended mg PO 08/26/23 08/26/23 release 24 hr (Myrbetriq) octreotide acetate 50 mcg/mL 50 mcg SQ ONCE 08/26/23 08/26/23 injection solution omeprazole 40 mg capsule,delayed 40 mg PO DAILY 08/26/23 08/26/23 release polyethylene glycol 3350 17 17 g PO DAILY 08/26/23 08/26/23 gram/dose oral powder (Miralax) sertraline 25 mg tablet 25 mg PO DAILY 08/26/23 08/26/23 Previous Rx's Medication Instructions Recorded prednisone 10 mg tablet 10 mg PO BID #10 tabs 08/27/23 Allergies Allergy/AdvReac Type Severity Reaction Status Date / Time No Known Allergies Allergy Verified 08/26/23 15:04 [facility] Disclaimer: The information contained in this section may have been updated after the patient was seen, as this information can be updated by other users. Medical History (Updated 11/17/23 @ 20:07 by JACK Santiago) Hypokalemia Pancreatitis Calculus of kidney Generalized abdominal pain Intraabdominal mass Biliary colic Nausea & vomiting Traumatic hematoma of forehead Facial hematoma Arm contusion Overactive bladder Urinary incontinence Osteoarthritis History of gastroesophageal reflux (GERD) History of cataract Hypertension Cataract Stomach cancer Surgical History No significant past surgical history Family History Other No significant family history Social History Smoking Status: Never smoker second hand exposure: No alcohol intake: never current occupational status: employed Travel in the last 8 weeks: None household members: family housing: house 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 current occupational exposures/hazards: No caffeine: Yes ROS Obtained: Yes Systems reviewed as appropriate & no additional complaints except as documented Physical Exam General General appearance: alert and in no apparent distress Respiratory Respiratory exam: Present normal lung sounds bilaterally Cardiovascular Cardiovascular exam: Present regular rate and normal rhythm Abdominal Exam Abdominal exam: Present soft and normal bowel sounds; Absent tenderness, guarding, rebound or rigidity Extremities Exam Extremities exam: Present normal inspection and full ROM Neurological Exam Neurological exam: Present alert, oriented X3 and CN II-XII intact Medical Decision Making Medical Records Medical records reviewed: Yes I reviewed the patient's medical records. Abelardo Inquiry Pt receiving controlled substance: No Vital Signs: 11/17/23 17:58 11/17/23 18:47 Temperature 97.8 F Temperature Source Oral Pulse Rate 90 Pulse Rate [Radial] 100 H Respiratory Rate 18 Blood Pressure 134/76 Blood Pressure [Right Arm] 147/83 H Blood Pressure Mean [Right Arm] 104 Blood Pressure Source [Right Arm] Automatic Cuff Blood Pressure Position [Right Arm] Sitting 02 Sat by Pulse Oximetry 94 L 93 L Oxygen Delivery Method Room Air Room Air Lab Data Lab results reviewed: Yes I reviewed the patient's lab results. Lab Results 11/17/23 18:14: WBC 5.8, RBC 4.33, Hgb 12.2, Hct 38.0, MCV 87.8, MCH 28.2, MCHC 32.1, RDW 15.6, Plt Count 194, MPV 11.5 H, Neut % (Auto) 78.1, Lymph % (Auto) 10.6, Sawyer % (Auto) 9.4 H, Eos % (Auto) 1.2, Baso % (Auto) 0.8, Neut # (Auto) 4.5, Lymph # (Auto) 0.6 L, Sawyer # (Auto) 0.5, Eos # (Auto) 0.1, Baso # (Auto) 0.1, Sodium 131 L, Potassium 4.0, Chloride 96 L, Carbon Dioxide 24, Anion Gap 15.0, BUN 19 H, Creatinine 0.90, Estimated Creat Clear 35, Estimated GFR 60, Est GFR ( Amer) 73, Glucose 114 H, Calcium 9.2, Magnesium 1.4 L, Total Bilirubin 1.0, AST 51 H, ALT 35, Alkaline Phosphatase 110, Total Protein 7.6, Albumin 4.2, Globulin 3.4 H, Albumin/Globulin Ratio 1.2, Lipase 65 11/17/23 19:06: Lactate 1.0 11/17/23 18:14 11/17/23 18:14 Orders (Tests/Meds): ED MEDICATIONS Generic Name Dose Route Start Last Admin Trade Name Freq PRN Reason Stop Dose Admin Magnesium Sulfate 2 gm in 50 mls @ 50 mls/hr 11/17/23 19:34 11/17/23 19:55 Magnesium Sulfate 2gm/50ml Premix IV 11/17/23 20:33 50 mls/hr ONCE ONE Administration Discontinued Medications Generic Name Dose Route Start Last Admin Trade Name Freq PRN Reason Stop Dose Admin Acetaminophen 1,000 mg 11/17/23 18:36 11/17/23 18:41 Acetaminophen 1,000mg/100ml Vial IV 11/17/23 18:37 1,000 mg ONCE ONE Administration Lactated Ringer's 1,000 mls @ 999 mls/hr 11/17/23 18:36 11/17/23 18:41 Lactated Ringer's 1000 Ml Bag IV 11/17/23 19:36 999 mls/hr .Q1H1M ONE Administration Ondansetron HCl 4 mg 11/17/23 18:36 11/17/23 18:41 Ondansetron 4mg/2ml Vial IV 11/17/23 18:37 4 mg ONCE ONE Administration ORDERS Category Date Time Status CBC w/Auto Diff [Complete Blood Count Auto Diff] Stat Lab 11/17/23 18:14 Completed CMP [Comprehensive Metabolic Panel] Stat Lab 11/17/23 18:14 Completed Lactic Acid Stat Lab 11/17/23 19:06 Completed Lipase Stat Lab 11/17/23 18:14 Completed Magnesium Stat Lab 11/17/23 18:14 Completed Medical Decision Narrative: In summary patient is a 78-year-old female who presents to the emergency department for evaluation of nausea vomiting and diarrhea. Patient is normotensive tachycardic heart rate of 100 initially on arrival but now with a heart rate of 90 upon arrival, afebrile. Physical exam shows cachectic very pleasant appearing 78-year-old female who otherwise is in no acute distress. Physical exam is remarkable for no significant abdominal pain on palpation with hyperactive bowel sounds. Differential diagnosis includes dehydration versus chronic diarrhea due to medication therapy versus electrolyte abnormality etc. Initial workup will be conducted with hematologic labs urinalysis. Initial interventions include Toradol Tylenol lactated Ringer's bolus and antiemetics. Initial workup reviewed by me shows only a slightly low mag at 1.2 which has been repleted here in the ER.. Upon repeat evaluation patient reported feeling better after initial interventions. Given this patient is appropriate for discharge with continual follow-up with the [facility] [place]. I have referred her to Dr. Gomez for an opinion on a port placement to make further health care visits less challenging for IV access and blood draws. Critical Care Critical Care Time Critical Care Time: No
--- OUTSIDE RECORDS SUMMARY | 2023-11-17 18:17 | XMS_ITS ---
Author Name Unknown Organization [facility] No information ASSESSMENT No information CHIEF COMPLAINT No information Immunizations Date Vaccine Dateadministered Timeadministered Vaccinecode Do se Unit Superintendent [employer] D[employer] Cptcode Cvxcode Manufacturercode Administere dby 03/23 00:00 :00 Flu Vacc-Hig h Dose 03/23/2018 13:23:00 13:23:00 [id number] 0.5 cc [employer] P[employer] 10/29/19 19 00:00:00 [id number] 135 [employer] P[employer] Alexandria Castillo 02/22 00:00 :00 Flu Vacc-Hig h Dose 02/23/2020 15:13:00 15:13:00 [id number] .5 San[employer]i Paste[employer] 11/28/19 21 00:00:00 [id number] 135 [employer] P[employer] Leticia Amin 03/06 00:00 :00 Flu Vacc-Hig h Dose 03/06/2021 12:33:00 12:33:00 [id number] .50 [employer]i Paste[employer] 11/28/19 22 00:00:00 [id number] 135 [employer] P[employer] MADAN JONES 04/03 00:00 :00 High dose Fluzone 04/03/2015 13:43:00 13:43:00 [id number] .5 cc sanofi 09/28/19 16 00:00:00 [id number] 135 sanofi Flavia Lornezo 03/29 00:00 :00 High dose Fluzone 03/29/2017 15:30:00 15:30:00 [id number] .5 [employer] Paste[employer] 08/07/19 18 00:00:00 [id number] 135 [employer] Leticia Dalal 04/03 00:00 :00 High dose Fluzone 04/03/2019 15:48:00 15:48:00 [id number] .5 [employer]i Pasteur 11/07/19 20 00:00:00 [id number] 135 [employer]i Leticia Dalal 04/03 00:00 :00 PCV 04/03/2015 13:43:00 13:43:00 [id number] .5 cc [employer] 08/30/19 17 00:00:00 [id number] 133 [employer] Flavia Lorenzo 05/20 00:00 :00 PNEUMONI A VACCINE Adult 05/20/2016 13:37:00 13:37:00 [id number] 0.5 cc [employer] 06/16/19 18 00:00:00 [id number] 33 [employer] Alexandria Ram OBJECTIVE DATA No information PHYSICAL EXAMINATION No information TREATMENT PLAN No information PROBLEMS No information RESULTS No information REVIEW OF SYSTEMS No information SUBJECTIVE DATA No information VITAL SIGNS No information MEDICATIONS No information
--- NOTE | 2023-11-17 18:30 | PC.NURSE ---
Carl MUSE at BS
[2023-11-17] MEDS: LACTATED RINGERS 1000ML 1,000 ML 999 ML IV (18:41)
[2023-11-17] MEDS: ONDANSETRON 4MG/2ML VIAL 4 MG IV (18:41)
[2023-11-17] MEDS: ACETAMINOPHEN 1,000MG/100ML VIAL 1000 MG IV (18:41)
[2023-11-17 18:47] VITALS: BP 134/76; PULSE 90; O2SAT 93
[2023-11-17 18:49] LABS: Basophils # 0.1 K/mm3 (0-0.2); Basophils % 0.8 % (0.1-2.0); Eosinophils # 0.1 K/mm3 (0.0-0.4); Eosinophils % 1.2 % (0.1-12.0); Hemoglobin 12.2 g/dL (12.2-16.2); Lymphocytes # 0.6 K/mm3 (0.7-4.5); Lymphocytes % 10.6 % (10-50); Mean Corpuscular HGB Conc 32.1 g/dL (31.8-35.4); Mean Corpuscular Hemoglobin 28.2 pg (27.0-31.2); Mean Corpuscular Volume 87.8 fl (81-99); Mean Platelet Volume 11.5 fl (7.4-10.4); Monocytes # 0.5 K/mm3 (0.1-1.0); Monocytes % 9.4 % (1.7-9.3); Neutrophils # 4.5 K/mm3 (1.8-7.8); Neutrophils % 78.1 % (37.0-80.0); Platelet Count 194 K/mm3 (142-424); Red Blood Count 4.33 M/mm3 (4.20-5.40); Red Cell Distribution Width 15.6 % (11.5-17.5); White Blood Count 5.8 K/mm3 (4.8-10.8)
[2023-11-17 18:51] LABS: Chloride 96 mmol/L (98-107); Sodium 131 mmol/L (136-145)
[2023-11-17 18:53] LABS: Alanine Aminotransferase 35 U/L (12-78); Aspartate Amino Transferase 51 U/L (14-36); Blood Urea Nitrogen 19 mg/dl (7-17); Creatinine Clearance Estimated 35 mL/min (50-200); Estimated Glomerular Filt Rate 60 ml/min (>60); GFR (African American) 73 ML/MIN (>60)
[2023-11-17 18:54] LABS: Albumin Level 4.2 g/dl (3.5-5.0); Albumin/Globulin Ratio 1.2 (1.1-1.8); Alkaline Phosphatase 110 U/L (38-126); Calcium 9.2 mg/dl (8.4-10.2); Carbon Dioxide 24 mmol/L (22.0-30.0); Globulin 3.4 g/dL (1.3-3.2); Glucose 114 mg/dl (74-100); Lipase 65 U/L (23-300); Magnesium 1.4 mg/dl (1.6-2.3); Total Protein,Serum 7.6 g/dl (6.3-8.2)
[2023-11-17 19:00] VITALS: BP 122/63; PULSE 86; O2SAT 93
[2023-11-17 19:30] VITALS: BP 124/67; PULSE 87; O2SAT 93
[2023-11-17] MEDS: MAGNESIUM SULFATE IN WATER 2 GM/50 ML PIGGYBACK IV (19:55)
[2023-11-17 20:00] VITALS: BP 125/71; PULSE 85; O2SAT 93
[2023-11-17 20:34] VITALS: BP 119/68; PULSE 72; RESP 16; TEMP 36.8; O2SAT 97
== END 2023-11-17 20:34 | disposition home or self-care (01) ==
PROVIDERS: Physician Assistant; Emergency Provider Student in an Organized Health Care Education/Training Program; PCP Family Medicine
DX: R11.2 Nausea with vomiting, unspecified (principal); E87.1 Hypo-osmolality and hyponatremia; R19.7 Diarrhea, unspecified; C7A.1 Malignant poorly differentiated neuroendocrine tumors; I10 Essential (primary) hypertension; K21.9 Gastro-esophageal reflux disease without esophagitis; E31.20 Multiple endocrine neoplasia [MEN] syndrome, unspecified
CPT/HCPCS: 80053; 83605; 83690; 83735; 85025; 96361; 96365; 96375; 99284; J0131; J2405; J3475; J7120

== ENCOUNTER 2023-11-19 12:38 | Emergency (ER) | payer MEDICARE, SELFPAY ==
[2023-11-19] VITALS (13 sets, daily range): BP systolic 125–149; BP diastolic 72–79; PULSE 85–110; RESP 13–20; TEMP 36.6; O2SAT 92–97; BMI 18.8
--- NOTE | 2023-11-19 13:19 | CT_ITS ---
FINAL REPORT TECHNIQUE: After the administration of intravenous contrast, axial images were obtained through the abdomen and pelvis by computed tomography. This study was performed with technique to keep radiation doses as low as reasonably achievable, (ALARA). Individualized dose reduction techniques using automated exposure control or adjustment of the MA and/or KV according to the patient's size were employed. CLINICAL HISTORY: Vomiting, concern for obstruction with malignancy COMPARISON: 05/02/2021 FINDINGS: Abdomen: The lung bases are clear. There are a few, nonspecific liver lesions measuring up to 13 mm posteriorly. These are more dense than simple cysts. There has been interval development of biliary ductal dilatation measuring up to 11 mm. Gallbladder is distended. Biliary obstruction is questioned. The spleen is unremarkable. The adrenals are normal. The pancreas is unremarkable. There is new, bilateral renal scarring. The aorta is normal in caliber. There is no free fluid or adenopathy. Small bowel is diffusely dilated and filled with fluid. There is no free air. Distal small bowel is decompressed. Pattern is suspicious for obstruction. There is a potential obstruction site within the right central abdomen where there is a spiculated mass that is seen on coronal image 31. There is associated coarse calcification. Mass measures 30 x 26 x 23 mm and could represent carcinoid tumor or less likely, lymphoma or metastatic disease. This tumor is likely related to obstruction. Pelvis: The appendix is normal. Uterus is normal. Fluid-filled small bowel is seen. The urinary bladder is unremarkable. There is no free fluid or adenopathy. IMPRESSION: Findings suspicious for small bowel obstruction, possibly related to mesenteric mass seen in the right central abdomen. Differential diagnosis includes carcinoid tumor, lymphoma or metastatic disease. Findings suspicious for biliary obstruction as above. Reviewed, Interpreted and Dictated by Padmini Duncan MD Transcribed by Cathy Mahoney Authenticated and [facility]
--- NOTE | 2023-11-19 13:19 | HMH.EDGENADL ---
Discharge Plan Disposition Patient Disposition: Xfer Short-Term Hosp Chief Complaint: Abdominal Pain Prescriptions Prescriptions: No Action calcium carbonate [Calcium 600] 600 mg calcium (1,500 mg) tablet 600 mg PO DAILY loratadine [Claritin] 10 mg tablet 10 mg PO DAILY polyethylene glycol 3350 [Miralax] 17 gram/dose powder 17 g PO DAILY omeprazole 40 mg capsule,delayed release(DR/EC) 40 mg PO DAILY sertraline 25 mg tablet 25 mg PO DAILY Patient Comments: TAKE 1 TABLET BY MOUTH ONCE DAILY ferrous sulfate 325 mg (65 mg iron) tablet,delayed release (DR/EC) 325 mg PO metoclopramide HCl 10 mg tablet 10 mg PO DAILY Myrbetriq 25 mg tablet extended release 24 hr PO octreotide acetate 50 mcg/mL solution 50 mcg SQ ONCE prednisone 10 mg tablet 10 mg PO BID Qty: 10 0RF potassium chloride 20 MEQ tablet extended release 20 meq PO DAILY famotidine 20 MG tablet 20 mg PO HS meloxicam 15 MG tablet 15 mg PO DAILY alendronate 70 MG tablet 70 mg PO WEEKLY amlodipine 10 MG tablet 10 mg PO DAILY Referrals Follow up/Referrals: Armani Campa MD [Primary Care Provider] - See instructions Clinical Impressions Clinical Impression: Neuroendocrine neoplasm of gastrointestinal tract, SBO (small bowel obstruction) Stand Alone Forms Stand Alone Forms: Transfer Record - ED Instructions Patient Instructions: DI for Acute Abdominal Pain Discharge ED Provider: Tomas Pak General Adult HPI General Chief complaint: Abdominal Pain Stated complaint: abd swollen, dizzy, vomiting, unable to hold food Time Seen by Provider: 11/19/23 12:51 Mode of Arrival: Ambulatory Source of Information: Patient and Relative Limitations: No Limitations Description of Symptoms (Recalled from ER Triage Doc. by RN): abdominal swelling. sees Phan. tumor in stomach. diarrhea and vomiting History of Present Illness HPI narrative: Please note that above description of symptoms, in this electronic medical record under categorization of recalled from ER triage doctor by RN are reflective of an initial nursing assessment, however, is not reflective of my full history and physical exam that was personally taken and clarified. Consequentially, this preceding description of symptoms, which may include the patient's categorized chief complaint in the EMR, do not reflect my personal clinical impression, and the ultimate description of history of present illness and patient stated complaints should be deferred to this section of the note. Unless stated otherwise or congruent with this section of the note, additional signs, symptoms, or incongruence should be interpreted as inaccurate with my clinical impression. Related Data Home Medications Medication Instructions Recorded Confirmed famotidine 20 mg tablet 20 mg PO HS GERD 06/19/20 06/17/23 potassium chloride 20 mEq 20 meq PO DAILY Supplement 06/19/20 08/26/23 tablet,extended release alendronate 70 mg tablet 70 mg PO WEEKLY Osteoporosis 06/24/20 08/26/23 amlodipine 10 mg tablet 10 mg PO DAILY Hypertension 06/24/20 08/26/23 meloxicam 15 mg tablet 15 mg PO DAILY Pain 08/20/20 08/26/23 calcium carbonate (Calcium 600) 600 mg PO DAILY 08/26/23 08/26/23 ferrous sulfate 325 mg (65 mg 325 mg PO 08/26/23 08/26/23 iron) tablet,delayed release loratadine 10 mg tablet (Claritin) 10 mg PO DAILY 08/26/23 08/26/23 metoclopramide HCl 10 mg tablet 10 mg PO DAILY 08/26/23 08/26/23 mirabegron 25 mg tablet,extended mg PO 08/26/23 08/26/23 release 24 hr (Myrbetriq) octreotide acetate 50 mcg/mL 50 mcg SQ ONCE 08/26/23 08/26/23 injection solution omeprazole 40 mg capsule,delayed 40 mg PO DAILY 08/26/23 08/26/23 release polyethylene glycol 3350 17 17 g PO DAILY 08/26/23 08/26/23 gram/dose oral powder (Miralax) sertraline 25 mg tablet 25 mg PO DAILY 08/26/23 08/26/23 Previous Rx's Medication Instructions Recorded prednisone 10 mg tablet 10 mg PO BID #10 tabs 08/27/23 Allergies Allergy/AdvReac Type Severity Reaction Status Date / Time No Known Allergies Allergy Verified 08/26/23 15:04 [facility] Disclaimer: The information contained in this section may have been updated after the patient was seen, as this information can be updated by other users. Medical History (Updated 11/19/23 @ 15:33 by Tomas Pak MD) Hypokalemia Pancreatitis Calculus of kidney Generalized abdominal pain Intraabdominal mass Biliary colic Nausea & vomiting Traumatic hematoma of forehead Facial hematoma Arm contusion Overactive bladder Urinary incontinence Osteoarthritis History of gastroesophageal reflux (GERD) History of cataract Hypertension Cataract Stomach cancer Surgical History No significant past surgical history Family History Other No significant family history Social History Smoking Status: Never smoker second hand exposure: No alcohol intake: never current occupational status: employed Travel in the last 8 weeks: None household members: family housing: house 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 current occupational exposures/hazards: No caffeine: Yes ROS Obtained: Yes All systems reviewed & no additional complaints except as documented Physical Exam General General appearance: alert and in no apparent distress Head Head exam: atraumatic and normocephalic Eye Eye exam: Present normal appearance, PERRL and EOMI ENT ENT exam: Present mucous membranes moist Neck Neck exam: Present normal inspection, full ROM and trachea midline Respiratory Respiratory exam: Absent respiratory distress, wheezes, stridor, accessory muscle use or prolonged expiratory phase Cardiovascular Cardiovascular exam: Present normal rhythm Abdominal Exam Abdominal exam: Present soft, distention and tenderness; Absent guarding, rebound or rigidity Abdominal tenderness: Present RUQ, RLQ, suprapubic and mild Extremities Exam Extremities exam: Absent edema Neurological Exam Neurological exam: Present alert, oriented X3, CN II-XII intact and normal gait; Absent motor sensory deficit Skin Skin exam: Present warm and dry; Absent diaphoresis or erythema Medical Decision Making Medical Records Medical records reviewed: Yes I reviewed the patient's medical records. Abelardo Inquiry Pt receiving controlled substance: No Abelardo was queried for this patient: No Vital Signs: 11/19/23 12:39 11/19/23 12:45 11/19/23 13:00 Temperature 97.9 F Temperature Source Oral Pulse Rate 93 H 100 H Pulse Rate [Right] 110 H Respiratory Rate 20 Blood Pressure Blood Pressure [Right Arm] 149/78 H Blood Pressure Mean [Right Arm] 101 02 Sat by Pulse Oximetry 97 96 95 Oxygen Delivery Method Room Air Room Air Room Air 11/19/23 13:15 11/19/23 13:48 11/19/23 14:00 Temperature Temperature Source Pulse Rate 92 H 91 H 89 Pulse Rate [Right] Respiratory Rate Blood Pressure 133/72 127/73 Blood Pressure [Right Arm] Blood Pressure Mean [Right Arm] 02 Sat by Pulse Oximetry 95 92 L 93 L Oxygen Delivery Method Room Air Room Air 11/19/23 14:30 11/19/23 15:00 Temperature Temperature Source Pulse Rate 85 87 Pulse Rate [Right] Respiratory Rate Blood Pressure 129/77 128/74 Blood Pressure [Right Arm] Blood Pressure Mean [Right Arm] 02 Sat by Pulse Oximetry 94 L 94 L Oxygen Delivery Method Room Air Room Air Lab Data Lab Results 11/19/23 12:55: WBC 6.6, RBC 4.37, Hgb 12.0 L, Hct 38.7, MCV 88.5, MCH 27.5, MCHC 31.0 L, RDW 15.6, Plt Count 218, MPV 11.5 H, Neut % (Auto) 79.9, Lymph % (Auto) 8.6 L, [place] % (Auto) 10.3 H, Eos % (Auto) 0.6, Baso % (Auto) 0.6, Neut # (Auto) 5.3, Lymph # (Auto) 0.[address], [place] # (Auto) 0.7, Eos # (Auto) 0.0, Baso # (Auto) 0.0, Sodium 131 L, Potassium 3.9, Chloride 97 L, Carbon Dioxide 25, Anion Gap 12.9, BUN 13 D, Creatinine 0.80, Estimated Creat Clear 35, Estimated GFR 69, Est GFR ( Amer) 84, Glucose 87, Lactate 1.0, Calcium 8.1 L, Magnesium 1.6 D, Total Bilirubin 0.9, AST 46 H, ALT 28, Alkaline Phosphatase 122, Total Protein 6.3, Albumin 3.6, Globulin 2.7, Albumin/Globulin Ratio 1.3, Lipase 99 11/19/23 13:46: Urine Color Yellow, Urine Appearance Clear, Urine pH 6.0, Ur Specific [place] <= 1.005, Urine Protein Negative, Urine Glucose (UA) Negative, Urine Ketones 1+, Urine Blood Negative, Urine Nitrate Negative, Urine Bilirubin Negative, Urine Urobilinogen 0.2, Ur Leukocyte Esterase Negative, Urine RBC None, Urine WBC Occasional, Ur Squamous Epith Cells Occasional, Urine Bacteria None 11/19/23 12:55 11/19/23 12:55 Orders (Tests/Meds): ED MEDICATIONS Discontinued Medications Generic Name Dose Route Start Last Admin Trade Name Freq PRN Reason Stop Dose Admin Acetaminophen 1,000 mg 11/19/23 13:12 11/19/23 13:36 Acetaminophen 1,000mg/100ml Vial IV 11/19/23 13:13 1,000 mg ONCE ONE Administration Lactated Ringer's 1,000 mls @ 999 mls/hr 11/19/23 13:12 11/19/23 13:36 Lactated Ringer's 1000 Ml Bag IV 11/19/23 14:12 999 mls/hr .Q1H1M ONE Administration Iopamidol 75 ml 11/19/23 13:30 11/19/23 13:30 Iopamidol-370 (76%);100ml Bottle IV 11/19/23 13:31 75 ml ONCE ONE Administration Ketorolac Tromethamine 15 mg 11/19/23 13:12 11/19/23 13:36 Ketorolac 30mg/Ml Vial IV 11/19/23 13:13 15 mg ONCE ONE Administration Ondansetron HCl 4 mg 11/19/23 13:12 11/19/23 13:36 Ondansetron 4mg/2ml Vial IV 11/19/23 13:13 4 mg ONCE ONE Administration Sodium Chloride 10 ml 11/19/23 13:30 11/19/23 13:30 Sodium Chloride 0.9% 10ml Syr (Rad Only) IV 11/19/23 13:31 10 ml ONCE ONE Administration ORDERS Category Date Time Status CT abdomen pelvis w con Stat Cat Scan 11/19/23 13:19 Completed CBC w/Auto Diff [Complete Blood Count Auto Diff] Stat Lab 11/19/23 12:55 Completed CMP [Comprehensive Metabolic Panel] Stat Lab 11/19/23 12:55 Completed Lactic Acid Stat Lab 11/19/23 12:55 Completed Lipase Stat Lab 11/19/23 12:55 Completed Magnesium Stat Lab 11/19/23 12:55 Completed UA [Urinalysis and Microscopic] Stat Lab 11/19/23 13:46 Completed Medical Decision Narrative: 78-year-old female history of neuroendocrine tumor presenting with abdominal distention. Patient states that she talked to [facility]. For the past couple days, she has been having decreased appetite, increased vomiting and decreased stool output. Used to diarrhea, noticed that she was constipated and having less stool output over the last 2 or 3 days. Was also taking Imodium, so thought it may be due to this. Patient states that yesterday, she started retching and vomiting and vomit was green as opposed to the normal yellowish it is typically. Not passing gas, last bowel movement was on 11/17. No fevers or chills, but abdomen is significantly more distended and pretty tender in the right side radiating into her right flank. No urinary symptoms. Talk to cancer facility at and they recommended she come in for CT scan to the nearest ED. History was obtained via conversation with patient and family. On arrival, patient hemodynamically stable, alert, oriented x4, appropriate, GCS 15, moving all extremities spontaneously, pupils equal and reactive to light. Full physical exam performed and significant for distended tender abdomen. No guarding, no overlying skin changes, but tenderness in the right flank as well. Primarily tender in right lower quadrant, right flank, periumbilical area on the right. No lower extremity edema. Cardiopulmonary exam within normal limits. Differential includes obstruction, progression of malignancy, mesenteric ischemia, gastroenteritis, infectious colitis, abdominal sepsis, ascites, among others. Patient was given Toradol, acetaminophen, fluids, Zofran for symptomatic management and correction of underlying abnormalities. Workup independently interpreted and significant for nonactionable CBC. Chemistry with mild hyponatremia, but normal kidney function. Lactate negative. CT abdomen pelvis independently interpreted and concerning for significant for dilated loops of bowel with air-fluid levels, but no obvious transition point. See radiology read for full review of final results. On reevaluation, patient feeling much better, not vomiting, looks better as well. CT scan with obstruction that appears to be originating at intra-abdominal mass. NG tube was placed. [facility] was contacted. Because patient high risk for clinical decompensation if discharged, deemed appropriate for transfer and inpatient admission. Results were relayed to patient who voiced understanding and patient was agreeable to transfer, inpatient admission, and management. Patient was graciously accepted and transferred to for further definitive management, under Dr. Lopes. Geophysical Data Technician disclaimer Much of this encounter note is an electronic arc welder spoken language to printed text. Electronic arc welder of the spoken language may permit errors. Although I have reviewed the note, some errors may still exist. Critical Care Critical Care Time Critical Care Time: Yes (GI) Attestation: On 11/19/23, the high probability of a clinically significant, sudden or life threatening deterioration of the following system(s) required my full and direct attention, intervention and personal management. The time I documented below is in addition to time spent performing reported procedures but includes the following listed in this critical care notation. Total Time Total Critical Care Time: 45
[2023-11-19 13:26] LABS: Lipase 99 U/L (23-300)
[2023-11-19 13:27] LABS: Magnesium 1.6 mg/dl (1.6-2.3)
[2023-11-19] MEDS: SODIUM CHLORIDE 0.9% 10ML SYR (RAD ONLY) 10 ML IV (13:30)
[2023-11-19] MEDS: IOPAMIDOL-370 (76%);100ML BOTTLE 75 ML IV (13:30)
[2023-11-19] MEDS: ONDANSETRON 4MG/2ML VIAL 4 MG IV (13:36)
[2023-11-19] MEDS: ACETAMINOPHEN 1,000MG/100ML VIAL 1000 MG IV (13:36)
[2023-11-19] MEDS: KETOROLAC 30MG/ML VIAL 15 MG IV (13:36)
[2023-11-19] MEDS: LACTATED RINGERS 1000ML 1,000 ML 999 ML IV ×2 (13:36→17:03)
[2023-11-19 13:54] LABS: Microscopic, Urine URINE MICROSCOPIC (MICROSCOPIC)
[2023-11-19 13:55] LABS: Appearance,Urine CLEAR (Clear); Bilirubin,Urine Negative (Negative); Blood, Urine Negative (Negative); Color,Urine YELLOW (Yellow); Glucose,Urine (UA) Negative (Negative); Ketones,Urine 1+ (Negative); Leukocyte Esterase,Urine Negative (Negative); Nitrate,Urine Negative (Negative); Protein,Urine Negative (Negative); Specific Gravity, Urine <= 1.005 (1.005-1.030); Urobilinogen,Urine 0.2 EU/dl (0.2)
[2023-11-19 13:56] LABS: Basophils % 0.6 % (0.1-2.0); Eosinophils % 0.6 % (0.1-12.0); Hematocrit 38.7 % (37.0-47.0); Lymphocytes # 0.6 K/mm3 (0.7-4.5); Lymphocytes % 8.6 % (10-50); Mean Corpuscular Hemoglobin 27.5 pg (27.0-31.2); Mean Corpuscular Volume 88.5 fl (81-99); Mean Platelet Volume 11.5 fl (7.4-10.4); Monocytes # 0.7 K/mm3 (0.1-1.0); Monocytes % 10.3 % (1.7-9.3); Neutrophils # 5.3 K/mm3 (1.8-7.8); Neutrophils % 79.9 % (37.0-80.0); Platelet Count 218 K/mm3 (142-424); Red Blood Count 4.37 M/mm3 (4.20-5.40); Red Cell Distribution Width 15.6 % (11.5-17.5); White Blood Count 6.6 K/mm3 (4.8-10.8)
[2023-11-19 14:11] LABS: Squamous Epithelial Cell,Urine Occasional #/hpf (0-5); WBC,Urine Occasional #/hpf (0-3)
--- NOTE | 2023-11-19 15:10 | PC.NURSE ---
DR BAIG AT BEDSIDE
[2023-11-19 15:11] LABS: Chloride 97 mmol/L (98-107); Potassium 3.9 mmoL/L (3.5-5.1); Sodium 131 mmol/L (136-145)
[2023-11-19 15:14] LABS: Alanine Aminotransferase 28 U/L (12-78); Albumin Level 3.6 g/dl (3.5-5.0); Albumin/Globulin Ratio 1.3 (1.1-1.8); Alkaline Phosphatase 122 U/L (38-126); Anion Gap 12.9 mEq/L (5-15); Aspartate Amino Transferase 46 U/L (14-36); Bilirubin,Total 0.9 mg/dl (0.2-1.3); Blood Urea Nitrogen 13 mg/dl (7-17); Carbon Dioxide 25 mmol/L (22.0-30.0); Creatinine Clearance Estimated 35 mL/min (50-200); Estimated Glomerular Filt Rate 69 ml/min (>60); GFR (African American) 84 ML/MIN (>60); Globulin 2.7 g/dL (1.3-3.2); Total Protein,Serum 6.3 g/dl (6.3-8.2)
[2023-11-19 15:15] LABS: Calcium 8.1 mg/dl (8.4-10.2); Glucose 87 mg/dl (74-100)
--- NOTE | 2023-11-19 15:36 | XR_ITS ---
FINAL REPORT CLINICAL HISTORY: NG placement FINDINGS: No acute pulmonary opacity is present. There is no evidence of effusion or pneumothorax. Mediastinum is unremarkable. NG tube is in the gastric stomach. There is a nonspecific bowel gas pattern. Heart size is normal. IMPRESSION: NG tube in the stomach. Reviewed, Interpreted and Dictated by Padmini Duncan MD Transcribed by Lidia Corea Authenticated and . [facility]
--- NOTE | 2023-11-19 15:43 | PC.NURSE ---
report called to Leticia @ [facility]
--- NOTE | 2023-11-19 15:44 | PC.NURSE ---
[facility] NOTIFIED OF TRANSFER
== END 2023-11-19 17:06 | disposition short-term general hospital (02) ==
PROVIDERS: Student in an Organized Health Care Education/Training Program; Emergency Provider Emergency Medicine; PCP Family Medicine
DX: R10.84 Generalized abdominal pain (principal); R14.0 Abdominal distension (gaseous); K56.609 Unspecified intestinal obstruction, unspecified as to partial versus complete obstruction; D3A.8 Other benign neuroendocrine tumors; E87.1 Hypo-osmolality and hyponatremia; R11.10 Vomiting, unspecified; I10 Essential (primary) hypertension
CPT/HCPCS: 71045; 74177; 80053; 81001; 83605; 83690; 83735; 85025; 96361; 96374; 96375; 99285; J0131; J1885; J2405; J7120; Q9967

== ENCOUNTER 2023-12-21 11:30 | Emergency (ER) | payer MEDICARE, SELFPAY ==
[2023-12-21] VITALS (15 sets, daily range): BP systolic 105–130; BP diastolic 50–87; PULSE 66–94; RESP 17–21; TEMP 36.8; O2SAT 95–99; BMI 16.9
--- NOTE | 2023-12-21 12:24 | XR_ITS ---
FINAL REPORT CLINICAL HISTORY: fall, L wrist/forearm pain FINDINGS: LEFT WRIST Three views demonstrate no acute fracture or dislocation. Osteopenia is noted. There are mild degenerative changes. The soft tissues are unremarkable. IMPRESSION: No acute bony abnormality. Reviewed, Interpreted and Dictated by Padmini Duncan MD Transcribed by Nusrat Reeder Authenticated and [facility]
--- NOTE | 2023-12-21 12:24 | XR_ITS ---
FINAL REPORT CLINICAL HISTORY: Left hand pain after a fall FINDINGS: LEFT HAND Three views demonstrate advanced to diffuse arthritic changes most pronounced at the proximal interphalangeal joints and first carpometacarpal joint. There is chronic appearing subluxation of the first carpometacarpal joint and the second distal interphalangeal joint. There is no acute fracture. Soft tissues are unremarkable. IMPRESSION: Degenerative changes with no acute bony abnormality. Reviewed, Interpreted and Dictated by Padmini Duncan MD Transcribed by Nusrat Reeder Authenticated and . [facility]
--- NOTE | 2023-12-21 12:24 | CT_ITS ---
FINAL REPORT TECHNIQUE: Axial imaging of the head was obtained without contrast. This study was performed with techniques to keep radiation doses as low as reasonably achievable, (ALARA). Individualized dose reduction techniques using automated exposure control or adjustment of mA and/or kV according to the patient''s size were employed. CLINICAL HISTORY: fall on face, no LOC FINDINGS: The ventricles are normal in size. There is no evidence of hemorrhage. No masses are identified. No extra-axial fluid is seen. The sinuses are normal. There is no acute osseous abnormality. IMPRESSION: No acute intracranial abnormality. Reviewed, Interpreted and Dictated by Padmini Duncan MD Transcribed by Nusrat Reeder Authenticated and [facility]
--- NOTE | 2023-12-21 12:24 | XR_ITS ---
FINAL REPORT CLINICAL HISTORY: Left forearm pain after a fall FINDINGS: LEFT FOREARM 2 views were obtained. There is no acute fracture or dislocation. The joint spaces are intact. There is no soft tissue abnormality. IMPRESSION: No acute bony abnormality. Reviewed, Interpreted and Dictated by Padmini Duncan MD Transcribed by Nusrat Reeder Authenticated and [facility]
--- NOTE | 2023-12-21 12:24 | CT_ITS ---
FINAL REPORT TECHNIQUE: Thin section axial CT with sagittal reconstruction without contrast. This study was performed with techniques to keep radiation doses as low as reasonably achievable (ALARA). Individualized dose reduction techniques using automated exposure control or adjustment of mA and/or kV according to the patient's size were employed. CLINICAL HISTORY: fall on face FINDINGS: No fracture is seen. Alignment is normal. There is moderate diffuse degenerative disease with canal stenosis and neuroforaminal narrowing at C4-5 and C5-6. IMPRESSION: No fracture or malalignment. Reviewed, Interpreted and Dictated by Padmini Duncan MD Transcribed by Nusrat Reeder Authenticated and [facility]
--- NOTE | 2023-12-21 12:24 | CT_ITS ---
FINAL REPORT TECHNIQUE: Thin section axial CT with coronal reconstruction without IV contrast. This study was performed with techniques to keep radiation doses as low as reasonably achievable (ALARA). Individualized dose reduction techniques using automated exposure control or adjustment of mA and/or kV according to the patient's size were employed. CLINICAL HISTORY: fall on face FINDINGS: No fracture is present. Paranasal sinuses are clear. The TMJs are intact. IMPRESSION: No evidence of facial fracture Reviewed, Interpreted and Dictated by Padmini Duncan MD Transcribed by Nusrat Reeder Authenticated and [facility]
--- NOTE | 2023-12-21 12:24 | XR_ITS ---
FINAL REPORT CLINICAL HISTORY: Left elbow pain after a fall FINDINGS: LEFT ELBOW 3 views were obtained. There is no acute fracture or dislocation. The there are mild degenerative changes. There is no soft tissue abnormality. IMPRESSION: No acute bony abnormality. Reviewed, Interpreted and Dictated by Padmini Duncan MD Transcribed by Nusrat Reeder Authenticated and [facility]
--- NOTE | 2023-12-21 12:26 | ED_ITS ---
Discharge Plan Disposition Patient Disposition: Home, Self-Care Prescriptions Prescriptions: No Action calcium carbonate [Calcium 600] 600 mg calcium (1,500 mg) tablet 600 mg PO DAILY loratadine [Claritin] 10 mg tablet 10 mg PO DAILY polyethylene glycol 3350 [Miralax] 17 gram/dose powder 17 g PO DAILY omeprazole 40 mg capsule,delayed release(DR/EC) 40 mg PO DAILY sertraline 25 mg tablet 25 mg PO DAILY Patient Comments: TAKE 1 TABLET BY MOUTH ONCE DAILY ferrous sulfate 325 mg (65 mg iron) tablet,delayed release (DR/EC) 325 mg PO metoclopramide HCl 10 mg tablet 10 mg PO DAILY Myrbetriq 25 mg tablet extended release 24 hr PO octreotide acetate 50 mcg/mL solution 50 mcg SQ ONCE prednisone 10 mg tablet 10 mg PO BID Qty: 10 0RF potassium chloride 20 MEQ tablet extended release 20 meq PO DAILY famotidine 20 MG tablet 20 mg PO HS meloxicam 15 MG tablet 15 mg PO DAILY alendronate 70 MG tablet 70 mg PO WEEKLY amlodipine 10 MG tablet 10 mg PO DAILY Referrals Follow up/Referrals: Armani Campa MD [Primary Care Provider] - See instructions Clinical Impressions Clinical Impression: Fall, Laceration of left eyebrow, Contusion of left wrist, Hypokalemia Discharge ED Provider: Asmita Ca General Adult HPI <Asmita Ca DO - Last Filed: 12/21/23 15:20> General Chief complaint: Fall Stated complaint: fell 12/19 cut on eye brow hurt arm Time Seen by Provider: 12/21/23 11:47 Mode of Arrival: Wheelchair Source of Information: Patient Limitations: No Limitations Description of Symptoms (Recalled from ER Triage Doc. by RN): pt to ed c/o laceration to the left eye brow, left elbow pain, and left hand/wrist pain as a result of a fall. pt states she fell walking down the hallway this am. pt denies taking blood thinners. pt denies LOC. 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 Patient reports that she was walking through her house when she had a mechanical ground-level fall. She states that she has been feeling a little bit weaker than usual, as she has had a hard time with oral intake. She recently had a PEG placed at 12/08/2023, which she tolerated well. She denies any issues with this such as increasing pain or other concerns. She did states she is having a hard time getting adequate nutrition. With the fall, she did hit her head but she did not lose consciousness. She has swelling to her left eyebrow as well as bruising and pain to her left wrist. No other concerns noted at this time. Related Data Home Medications Medication Instructions Recorded Confirmed famotidine 20 mg tablet 20 mg PO HS GERD 06/19/20 06/17/23 potassium chloride 20 mEq 20 meq PO DAILY Supplement 06/19/20 08/26/23 tablet,extended release alendronate 70 mg tablet 70 mg PO WEEKLY Osteoporosis 06/24/20 08/26/23 amlodipine 10 mg tablet 10 mg PO DAILY Hypertension 06/24/20 08/26/23 meloxicam 15 mg tablet 15 mg PO DAILY Pain 08/20/20 08/26/23 calcium carbonate (Calcium 600) 600 mg PO DAILY 08/26/23 08/26/23 ferrous sulfate 325 mg (65 mg 325 mg PO 08/26/23 08/26/23 iron) tablet,delayed release loratadine 10 mg tablet (Claritin) 10 mg PO DAILY 08/26/23 08/26/23 metoclopramide HCl 10 mg tablet 10 mg PO DAILY 08/26/23 08/26/23 mirabegron 25 mg tablet,extended mg PO 08/26/23 08/26/23 release 24 hr (Myrbetriq) octreotide acetate 50 mcg/mL 50 mcg SQ ONCE 08/26/23 08/26/23 injection solution omeprazole 40 mg capsule,delayed 40 mg PO DAILY 08/26/23 08/26/23 release polyethylene glycol 3350 17 17 g PO DAILY 08/26/23 08/26/23 gram/dose oral powder (Miralax) sertraline 25 mg tablet 25 mg PO DAILY 08/26/23 08/26/23 Previous Rx's Medication Instructions Recorded prednisone 10 mg tablet 10 mg PO BID #10 tabs 08/27/23 Allergies Allergy/AdvReac Type Severity Reaction Status Date / Time No Known Allergies Allergy Verified 08/26/23 15:04 PFS <Asmita Ca, DO - Last Filed: 12/21/23 15:20> [facility] Disclaimer: The information contained in this section may have been updated after the patient was seen, as this information can be updated by other users. Medical History Hypokalemia Pancreatitis Calculus of kidney Generalized abdominal pain Intraabdominal mass Biliary colic Nausea & vomiting Traumatic hematoma of forehead Facial hematoma Arm contusion Overactive bladder Urinary incontinence Osteoarthritis History of gastroesophageal reflux (GERD) History of cataract Hypertension Cataract Stomach cancer Surgical History No significant past surgical history Family History Other No significant family history Social History Smoking Status: Never smoker second hand exposure: No alcohol intake: never current occupational status: employed Travel in the last 8 weeks: None household members: family housing: house 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 3 cm stellate laceration ENT ENT exam: Present normal exam, normal oropharynx, mucous membranes moist and normal external ear exam Neck Neck exam: Present normal inspection, full ROM and trachea midline; Absent tenderness Chest Chest inspection: Present normal inspection and symmetric chest wall rise; Absent tenderness Respiratory Respiratory exam: Present normal lung sounds bilaterally; Absent respiratory distress, wheezes, stridor or accessory muscle use Cardiovascular Cardiovascular exam: Present regular rate and normal rhythm Abdominal Exam Abdominal exam: Present soft; Absent distention, tenderness or guarding Comment: PEG in place with no abnormal drainage or skin color changes around Extremities Exam Extremities exam: Present tenderness, normal capillary refill and other (Tender to palpation of the left wrist with associated bruising. Limited range of motion of the left wrist secondary to pain. All compartments soft. Neurovascularly intact distally.); Absent full ROM Back Exam Back exam: Present normal inspection and full ROM; Absent tenderness Neurological Exam Neurological exam: Present alert, oriented X3, CN II-XII intact and normal gait; Absent motor sensory deficit Psychiatric Psychiatric exam: Present normal affect and normal mood Skin Skin exam: Present warm and dry <JACK Santiago - Last Filed: 12/21/23 15:08> Expanded Eye Exam Both Eyes Image: 2 1. 3 cm stellate laceration Medical Decision Making <Asmita Ca DO - Last Filed: 12/21/23 15:20> Medical Records Medical records reviewed: Yes I reviewed the patient's medical records. Abelardo Inquiry Pt receiving controlled substance: No Vital Signs: 12/21/23 11:40 12/21/23 12:00 12/21/23 12:30 Temperature 98.2 F Temperature Source Oral Pulse Rate 85 83 Pulse Rate [Left Radial] 94 H Respiratory Rate 20 Blood Pressure 130/77 108/68 L Blood Pressure [Right Arm] 125/84 Blood Pressure Mean 88 79 Blood Pressure Mean [Right Arm] 97 02 Sat by Pulse Oximetry 99 95 96 Oxygen Delivery Method 12/21/23 13:47 12/21/23 15:05 Temperature 98.2 F Temperature Source Oral Pulse Rate 86 81 Pulse Rate [Left Radial] Respiratory Rate 20 Blood Pressure 122/66 128/87 Blood Pressure [Right Arm] Blood Pressure Mean Blood Pressure Mean [Right Arm] 02 Sat by Pulse Oximetry 98 Oxygen Delivery Method Room Air Lab Data Lab results reviewed: Yes I reviewed the patient's lab results. Lab Results 12/21/23 14:00: WBC 4.9, RBC 4.14 L, Hgb 11.7 L, Hct 35.6 L, MCV 85.9, MCH 28.2, MCHC 32.8, RDW 16.1, Plt Count 220, MPV 10.2, Neut % (Auto) 76.6, Lymph % (Auto) 17.2, Powell % (Auto) 5.0, Eos % (Auto) 0.7, Baso % (Auto) 0.6, Neut # (Auto) 3.7, Lymph # (Auto) 0.8, Powell # (Auto) 0.2, Eos # (Auto) 0.0, Baso # (Auto) 0.0, S odium 134 L, Potassium 2.6 L*, Chloride 102, Carbon Dioxide 25, Anion Gap 9.6, BUN 9, Creatinine 0.50 L, Estimated Creat Clear 32, Estimated GFR 119, Est GFR ( Amer) 144, Glucose 87, Calcium 8.5, Magnesium 1.2 L, Total Bilirubin 0.5, AST 35, ALT 15, Alkaline Phosphatase 73, Total Protein 5.7 L, Albumin 3.0 L , Globulin 2.7, Albumin/Globulin Ratio 1.1 12/21/23 14:00 12/21/23 14:00 Orders (Tests/Meds): ED MEDICATIONS Discontinued Medications Generic Name Dose Route Start Last Admin Trade Name Freq PRN Reason Stop Dose Admin Acetaminophen 1,000 mg 12/21/23 12:24 12/21/23 13:31 Acetaminophen 500mg Tab PO 12/21/23 12:25 1,000 mg ONCE ONE Administration Potassium Chloride/Water 100 mls @ 50 mls/hr 12/21/23 14:22 12/21/23 14:41 Potassium Chloride 20meq/100ml Ivpb IV 12/21/23 18:21 50 mls/hr Q2H SHIRA Administration Lactated Ringer's 1,000 mls @ 999 mls/hr 12/21/23 14:22 12/21/23 14:41 Lactated Ringer's 1000 Ml Bag IV 12/21/23 15:22 999 mls/hr .Q1H1M ONE Administration Magnesium Sulfate 2 gm in 50 mls @ 50 mls/hr 12/21/23 14:23 12/21/23 14:41 Magnesium Sulfate 2gm/50ml Premix IV 12/21/23 15:22 50 mls/hr ONCE ONE Administration Ketorolac Tromethamine 15 mg 12/21/23 12:24 12/21/23 13:31 Ketorolac 30mg/Ml Vial IV 12/21/23 12:25 15 mg ONCE ONE Administration Lidocaine/Epinephrine 10 ml 12/21/23 14:33 12/21/23 14:42 Lidocaine 1% W/Epi 1:100,000 20ml Vial SQ 12/21/23 14:34 10 ml ONCE ONE Administration Potassium Chloride 40 meq 12/21/23 14:21 12/21/23 14:41 Potassium Chloride 20meq Tab PO 12/21/23 14:22 40 meq ONCE ONE Administration Tetanus/Reduced Diphtheria/Acell Pertussis 0.5 ml 12/21/23 14:30 12/21/23 14:41 Tet/Diphth/Pert-Adult 0.5ml Syringe IM 12/21/23 14:31 0.5 ml .ONCE ONE Administration ORDERS Category Date Time Status CT cervical spine wo con Stat Cat Scan 12/21/23 12:[address] facial bones wo con Stat Cat Scan 12/21/23 12:[address] head/brain wo con Stat Cat Scan 12/21/23 12:24 Completed Elbow XR left mininum 3 views [XR elbow LT min 3V] Stat Exams 12/21/23 12:24 Completed Forearm XR left 2 views [XR forearm LT 2V] Stat Exams 12/21/23 12:24 Completed Hand XR left minimum 3 views [XR hand LT min 3V] Stat Exams 12/21/23 12:24 Completed Wrist XR left minimum 3 views [XR wrist LT min 3V] Stat Exams 12/21/23 12:24 Completed Complete Blood Count Auto Diff Stat Lab 12/21/23 14:00 Completed Comprehensive Metabolic Panel Stat Lab 12/21/23 14:00 Completed MAG [Magnesium] Stat Lab 12/21/23 14:00 Completed ECG Data Tracing #1: I reviewed this ECG and interpreted as documented below: Normal sinus rhythm with ventricular rate of 81 bpm. Left axis deviation. No acute ST changes concerning for ischemia. Normal QT interval. ECG initial impression date: 12/21/23 ECG initial impression time: 14:36 Medical Decision Narrative: In summary, this patient is a 78-year-old female presenting to the Emergency Department for evaluation of face injury and left wrist injury after a fall. Differential diagnoses considered include but are not limited to intracranial hemorrhage, facial fracture, C-spine fracture, wrist fracture, contusion. Ruling out the most morbid conditions drove assessment. It should be noted patient's history includes metastatic gastric cancer which is not at goal therapy. This complicates all aspects of care by increasing patient's risk for morbidity. I reviewed patient's past medical records and noted previous evaluations at and PEG tube placement as per HPI. On exam, the patient is resting comfortably in bed in no acute distress. She is neurologically intact. She does have hematoma to her left eyebrow as well as bruising and tenderness to her left wrist. Otherwise, no focal traumatic injuries noted. Workup included CBC, CMP, magnesium, CT head, CT C-spine, and x-rays of left upper extremity. She was given Tylenol and Toradol for pain as well as a small bolus of IV fluids given her poor oral intake as of late. I independently interpreted [] prior to the radiologist read and noted []. Please see their read for final interpretation. Labs were obtained that demonstrated []. At 1420, patient was placed in ED observation status pending [] to determine whether or not the patient would be appropriate for discharge versus admission. The patient was provided serial reevaluations and cardiac monitoring while awaiting ultimate disposition. Given reassuring workup and exam, it is felt that the patient is appropriate for discharge at this time. Total ED observation time was []. I had a [id number] visit with the patient when providing discharge instructions. The total time involved in discharging this patient was less than 30 minutes. On reassessment, patient had [] improvement after administration of []. At this time, patient was deemed to be appropriate for []. I had an interactive discussion with [] who advised []. The patient was given instructions for close outpatient follow-up, very strict return precautions, and the patient was discharged in stable condition with prescriptions for []. It should be noted that social factors including [] complicates care. We discussed []. <JACK Santiago - Last Filed: 12/21/23 15:08> Vital Signs: 12/21/23 11:40 12/21/23 12:00 12/21/23 12:30 Temperature 98.2 F Temperature Source Oral Pulse Rate 85 83 Pulse Rate [Left Radial] 94 H Respiratory Rate 20 Blood Pressure 130/77 108/68 L Blood Pressure [Right Arm] 125/84 Blood Pressure Mean 88 79 Blood Pressure Mean [Right Arm] 97 02 Sat by Pulse Oximetry 99 95 96 Oxygen Delivery Method 12/21/23 13:47 12/21/23 15:05 Temperature 98.2 F Temperature Source Oral Pulse Rate 86 81 Pulse Rate [Left Radial] Respiratory Rate 20 Blood Pressure 122/66 128/87 Blood Pressure [Right Arm] Blood Pressure Mean Blood Pressure Mean [Right Arm] 02 Sat by Pulse Oximetry 98 Oxygen Delivery Method Room Air Lab Data Lab Results 12/21/23 14:00: WBC 4.9, RBC 4.14 L, Hgb 11.7 L, Hct 35.6 L, MCV 85.9, MCH 28.2, MCHC 32.8, RDW 16.1, Plt Count 220, MPV 10.2, Neut % (Auto) 76.6, Lymph % (Auto) 17.2, Powell % (Auto) 5.0, Eos % (Auto) 0.7, Baso % (Auto) 0.6, Neut # (Auto) 3.7, Lymph # (Auto) 0.8, Powell # (Auto) 0.2, Eos # (Auto) 0.0, Baso # (Auto) 0.0, S odium 134 L, Potassium 2.6 L*, Chloride 102, Carbon Dioxide 25, Anion Gap 9.6, BUN 9, Creatinine 0.50 L, Estimated Creat Clear 32, Estimated GFR 119, Est GFR ( Amer) 144, Glucose 87, Calcium 8.5, Magnesium 1.2 L, Total Bilirubin 0.5, AST 35, ALT 15, Alkaline Phosphatase 73, Total Protein 5.7 L, Albumin 3.0 L , Globulin 2.7, Albumin/Globulin Ratio 1.1 Orders (Tests/Meds): ED MEDICATIONS Discontinued Medications Generic Name Dose Route Start Last Admin Trade Name Deisy PRN Reason Stop Dose Admin Acetaminophen 1,000 mg 12/21/23 12:24 12/21/23 13:31 Acetaminophen 500mg Tab PO 12/21/23 12:25 1,000 mg ONCE ONE Administration Potassium Chloride/Water 100 mls @ 50 mls/hr 12/21/23 14:22 12/21/23 14:41 Potassium Chloride 20meq/100ml Ivpb IV 12/21/23 18:21 50 mls/hr Q2H SHIRA Administration Lactated Ringer's 1,000 mls @ 999 mls/hr 12/21/23 14:22 12/21/23 14:41 Lactated Ringer's 1000 Ml Bag IV 12/21/23 15:22 999 mls/hr .Q1H1M ONE Administration Magnesium Sulfate 2 gm in 50 mls @ 50 mls/hr 12/21/23 14:23 12/21/23 14:41 Magnesium Sulfate 2gm/50ml Premix IV 12/21/23 15:22 50 mls/hr ONCE ONE Administration Ketorolac Tromethamine 15 mg 12/21/23 12:24 12/21/23 13:31 Ketorolac 30mg/Ml Vial IV 12/21/23 12:25 15 mg ONCE ONE Administration Lidocaine/Epinephrine 10 ml 12/21/23 14:33 12/21/23 14:42 Lidocaine 1% W/Epi 1:100,000 20ml Vial SQ 12/21/23 14:34 10 ml ONCE ONE Administration Potassium Chloride 40 meq 12/21/23 14:21 12/21/23 14:41 Potassium Chloride 20meq Tab PO 12/21/23 14:22 40 meq ONCE ONE Administration Tetanus/Reduced Diphtheria/Acell Pertussis 0.5 ml 12/21/23 14:30 12/21/23 14:41 Tet/Diphth/Pert-Adult 0.5ml Syringe IM 12/21/23 14:31 0.5 ml .ONCE ONE Administration ORDERS Category Date Time Status CT cervical spine wo con Stat Cat Scan 12/21/23 12:[address] facial bones wo con Stat Cat Scan 12/21/23 12:[address] head/brain wo con Stat Cat Scan 12/21/23 12:24 Completed Elbow XR left mininum 3 views [XR elbow LT min 3V] Stat Exams 12/21/23 12:24 Completed Forearm XR left 2 views [XR forearm LT 2V] Stat Exams 12/21/23 12:24 Completed Hand XR left minimum 3 views [XR hand LT min 3V] Stat Exams 12/21/23 12:24 Completed Wrist XR left minimum 3 views [XR wrist LT min 3V] Stat Exams 12/21/23 12:24 Completed Complete Blood Count Auto Diff Stat Lab 12/21/23 14:00 Completed Comprehensive Metabolic Panel Stat Lab 12/21/23 14:00 Completed MAG [Magnesium] Stat Lab 12/21/23 14:00 Completed Medical Decision Narrative: In summary, this patient is a 78-year-old female presenting to the Emergency Department for evaluation of face injury and left wrist injury after a fall. Differential diagnoses considered include but are not limited to intracranial hemorrhage, facial fracture, C-spine fracture, wrist fracture, contusion. Ruling out the most morbid conditions drove assessment. It should be noted patient's history includes metastatic gastric cancer which is not at goal therapy. This complicates all aspects of care by increasing patient's risk for morbidity. I reviewed patient's past medical records and noted previous evaluations at and PEG tube placement as per HPI. On exam, the patient is resting comfortably in bed in no acute distress. She is neurologically intact. She does have hematoma to her left eyebrow as well as bruising and tenderness to her left wrist. Otherwise, no focal traumatic injuries noted. Workup included CBC, CMP, magnesium, CT head, CT C-spine, and x-rays of left upper extremity. She was given Tylenol and Toradol for pain as well as a small bolus of IV fluids given her poor oral intake as of late. I independently interpreted [] prior to the radiologist read and noted []. Please see their read for final interpretation. Labs were obtained that demonstrated []. At 1420, patient was placed in ED observation status pending [] to determine whether or not the patient would be appropriate for discharge versus admission. The patient was provided serial reevaluations and cardiac monitoring while awaiting ultimate disposition. Given reassuring workup and exam, it is felt that the patient is appropriate for discharge at this time. Total ED observation time was []. I had a [id number] visit with the patient when providing discharge instructions. The total time involved in discharging this patient was less than 30 minutes. On reassessment, patient had [] improvement after administration of []. At this time, patient was deemed to be appropriate for []. I had an interactive discussion with [] who advised []. The patient was given instructions for close outpatient follow-up, very strict return precautions, and the patient was discharged in stable condition with prescriptions for []. It should be noted that social factors including [] complicates care. We discussed []. Laceration repair to left supraorbital ridge performed by TARUN Houser Wound prepped with Betadine Irrigation: 100 cc sterile water Anesthesia: Lidocaine with epi Repair: 3 cm total stellate laceration repaired with ten 6-0 nylon interrupted sutures Procedures <JACK Santiago Last Filed: 12/21/23 15:08> Laceration Laceration 1: Site: face (Left supraorbital ridge) Side (If applicable): left Size (cm): 3 Description: stellate Depth: simple, single layer Local Anesthetic: lidocaine 1% and with epi Amount of anesthesia used (mL): 5 Pre-repair: wound explored, irrigated extensively and deep structures intact Skin layer closed with: nylon Size (cm): 6-0 Number of sutures: 10 Technique: simple, interrupted Critical Care <JACK Santiago - Last Filed: 12/21/23 15:08> Critical Care Time Critical Care Time: No
--- NOTE | 2023-12-21 12:42 | PC.NURSE ---
patient gone to CT at this time
--- NOTE | 2023-12-21 13:08 | PC.NURSE ---
patient back in room at this time.
[2023-12-21] MEDS: ACETAMINOPHEN 500MG TAB 1000 MG PO (13:31)
[2023-12-21] MEDS: KETOROLAC 30MG/ML VIAL 15 MG IV (13:31)
[2023-12-21 14:11] LABS: Basophils % 0.6 % (0.1-2.0); Eosinophils % 0.7 % (0.1-12.0); Hematocrit 35.6 % (37.0-47.0); Hemoglobin 11.7 g/dL (12.2-16.2); Lymphocytes # 0.8 K/mm3 (0.7-4.5); Lymphocytes % 17.2 % (10-50); Mean Corpuscular HGB Conc 32.8 g/dL (31.8-35.4); Mean Corpuscular Hemoglobin 28.2 pg (27.0-31.2); Mean Corpuscular Volume 85.9 fl (81-99); Mean Platelet Volume 10.2 fl (7.4-10.4); Monocytes # 0.2 K/mm3 (0.1-1.0); Neutrophils # 3.7 K/mm3 (1.8-7.8); Neutrophils % 76.6 % (37.0-80.0); Platelet Count 220 K/mm3 (142-424); Red Blood Count 4.14 M/mm3 (4.20-5.40); Red Cell Distribution Width 16.1 % (11.5-17.5); White Blood Count 4.9 K/mm3 (4.8-10.8)
[2023-12-21 14:20] LABS: Alanine Aminotransferase 15 U/L (12-78); Albumin/Globulin Ratio 1.1 (1.1-1.8); Alkaline Phosphatase 73 U/L (38-126); Anion Gap 9.6 mEq/L (5-15); Aspartate Amino Transferase 35 U/L (14-36); Bilirubin,Total 0.5 mg/dl (0.2-1.3); Blood Urea Nitrogen 9 mg/dl (7-17); Calcium 8.5 mg/dl (8.4-10.2); Carbon Dioxide 25 mmol/L (22.0-30.0); Chloride 102 mmol/L (98-107); Creatinine Clearance Estimated 32 mL/min (50-200); Estimated Glomerular Filt Rate 119 ml/min (>60); GFR (African American) 144 ML/MIN (>60); Globulin 2.7 g/dL (1.3-3.2); Glucose 87 mg/dl (74-100); Magnesium 1.2 mg/dl (1.6-2.3); Sodium 134 mmol/L (136-145); Total Protein,Serum 5.7 g/dl (6.3-8.2)
[2023-12-21 14:21] LABS: Potassium 2.6 mmoL/L (3.5-5.1)
--- NOTE | 2023-12-21 14:21 | PC.NURSE ---
notified of critical potassium
--- NOTE | 2023-12-21 14:34 | ECG_ITS ---
APPROVED REPORT Exam: Resting ECG HR:81 bpm ECG Measurements Heart Rate 81 AXES TN 133 P 59 QRSd 95 QRS -36 QT 339 T 70 QTc 376 Conclusion SINUS RHYTHM LEFT AXIS DEVIATION [QRS AXIS < -30] PATTERN CONSISTENT WITH PULMONARY DISEASE ABNORMAL ECG Electronically signed by : JOON FAJARDO, 12/21/2023 16:21:04
[2023-12-21] MEDS: POTASSIUM CHLORIDE 20MEQ TAB 40 MEQ PO (14:41)
[2023-12-21] MEDS: TET/DIPHTH/PERT-ADULT 0.5ML SYRINGE 0.5 ML IM (14:41)
[2023-12-21] MEDS: LACTATED RINGERS 1000ML 1,000 ML 999 ML IV (14:41)
[2023-12-21] MEDS: MAGNESIUM SULFATE IN WATER 2 GM/50 ML PIGGYBACK IV (14:41)
[2023-12-21] MEDS: KCl 20mEq/100ml 100 ML 50 MEQ IV ×2 (14:41→16:47)
[2023-12-21] MEDS: LIDOCAINE 1% W/EPI 1:100,000 20ML VIAL 10 ML SQ (14:42)
== END 2023-12-21 19:04 | disposition home or self-care (01) ==
PROVIDERS: Emergency Provider Emergency Medicine; PCP Family Medicine
DX: S01.81XA Laceration without foreign body of other part of head, initial encounter (principal); S60.212A Contusion of left wrist, initial encounter; E87.6 Hypokalemia; M25.522 Pain in left elbow; M25.532 Pain in left wrist; C16.9 Malignant neoplasm of stomach, unspecified; Z93.1 Gastrostomy status; I10 Essential (primary) hypertension; K21.9 Gastro-esophageal reflux disease without esophagitis; W18.30XA Fall on same level, unspecified, initial encounter; Z23 Encounter for immunization
CPT/HCPCS: 12013; 36415; 70450; 70486; 72125; 73080; 73090; 73110; 73130; 80053; 83735; 85025; 90471; 90715; 93005; 96365; 96372; 96375; 99285; J1885; J3475; J7120

== ENCOUNTER 2024-05-05 13:42 | Outpatient (CLI) | payer MEDICARE, SELFPAY ==
--- NOTE | 2024-05-05 13:50 | MM_ITS ---
PROCEDURE INFORMATION: Exam: MG Bilateral Screening 3D Mammography Exam date and time: 05/05/2024 1:46 PM Age: 78 years old Clinical indication: Screening examination TECHNIQUE: Imaging protocol: Bilateral Screening tomosynthesis and 2D mammography including computer-aided detection (CAD) when performed. COMPARISON: 1. MG MM DIG SCREENING MAMM BI W/CAD 04/14/2023 3:02 PM 2. MG MM DIG SCREENING MAMM BI W/CAD 03/06/2021 8:26 AM 3. MG MM DIG SCREENING MAMM BI W/CAD 03/04/2020 4:31 PM 4. MG SCBI MM Dig screening mamm BI w/CAD 07/27/2018 3:28 PM FINDINGS: MAMMOGRAPHY: Breast composition: The breasts are heterogeneously dense, which may obscure small masses. Mass: None. Architectural distortion: None. Calcifications: No suspicious calcifications. Asymmetric density: None. Skin thickening: None. Axillary adenopathy: None. IMPRESSION: No mammographic evidence of malignancy. Annual screening is recommended unless otherwise clinically indicated. ASSESSMENT: BI-RADS Category 1: Negative.
== END 2024-05-05 23:59 | disposition home or self-care (01) ==
LOC: RAD 13:43
PROVIDERS: PCP Family Medicine; Visit Provider Family Medicine
DX: Z12.31 Encounter for screening mammogram for malignant neoplasm of breast (principal)
CPT/HCPCS: 77063; 77067

== ENCOUNTER 2024-11-08 13:25 | Outpatient (CLI) | payer MEDICARE, SELFPAY ==
--- OUTSIDE RECORDS SUMMARY | 2024-11-08 13:33 | XMS_ITS | Encounter Summary ---
Author Organization [facility] Address [address] [place] [address] Care Team Providers Care Bagging Machine Operator Name Role Phone Armani Campa MD Primary Care Provider [phone] Kylee James MOVIE SHOT CAMERAMAN Unavailable [phone] Faustino Topete MD Unavailable [phone] Encounter Details Date Type Department Care Team (Late st Contact Info) Description 10/11/2024 Telephone [facility] [address] [place] [address] Faustino Topete MD 800 [facility] [address] [place] [address] Social History Tobacco Use Types Packs/Day Years Used Date Smoking Tobacco: Never Smokeless Tobacco: Never Alcohol Use Standard Drinks/Week Comments Never 0 (1 standard drink = 0.6 oz pur e alcohol) Humiliation, Afraid, Rape, and Kick questionnair e Answer Date Recorded Within the last year, have y ou been afraid of your partner or ex-partner? No 12/01/2023 Within the last year, have y ou been humiliated or emotionally abused in other ways by your partner or ex-partner? No Within the last year, have y ou been kicked, hit, slapped, or otherwise physically hurt by your partner or ex-partner? No 12/01/2023 Within the last year, have y ou been raped or forced to have any kind of sexual activity by your partner or ex-partner? No 12/01/2023 Hunger Vital Sign Answer Date Recorded Within the past 12 months, y ou worried that your food would run out before you got the money to buy more. Never true 12/01/19 24 Within the past 12 months, t he food you bought just didn't last and you didn't have money to get more. Never true 12/01/2023 PRAPARE - Transportation Answer Date Re corded In the past 12 months, has l ack of transportation kept you from medical appointments or from getting medications? No 07/2023 In the past 12 months, has l ack of transportation kept you from meetings, work, or from getting things needed for daily living? No 12/01/2023 Housing Stability Vital Sign Answer Anthony e Recorded In the last 12 months, was t here a time when you were not able to pay the mortgage or rent on time? No 12/01/2023 [address] of [address] Lived in the Last Year Not on f ile 12/01/2023 In the last 12 months, was t here a time when you did not have a steady place to sleep or slept in a longterm (including now)? No 12/01/2023 CAGE ASSESSMENT Answer Date Recorded Cage unable to access Not on file 12/02/2023 Cage max number of drinks Not on file 2023 Cage Beverages a week Not on file 12/02/2023 Have you ever felt you should CUT down on your d rinking? 0 12/02/2023 Have you been ANNOYED by people criticizing your drinking? 0 12/02/2023 Have you felt GUILTY about your drinking? 0 12/02/2023 Have you had a drink first t volodymyr in the morning (EYE-TITLE MANAGER) to steady your nerves or to get rid of a hangover? 0 12/02/2023 CAGE Questionnaire Score 0 024 Utilities Answer Date Recorded In the past 12 months has th e electric, gas, oil, or water company threatened to shut off services in your home? No 12/01/2023 Comments No Sex and Gender Information Value Date Recorded Sex Assigned at Female 01/15/2023 1:11 PM EDT Legal Sex Female 6:44 PM EDT Gender Identity Female 01/15/2023 1:11 PM EDT Sexual Orientation Not on file documented as of this encounter Miscellaneous Notes * Telephone Encounter - Lucinda Junior - 10/11/2024 12:17 PM EDT 10/11 R/s 12/21/23 appt to 11/10/24 Sent request to Radiology Dept * Telephone Encounter - Basilia Hammer - 10/11/2024 11:59 AM EDT Patient Phone Message Reason for Call: Calling to schedule f/u with Efrem. Best contact number and optimal time of day to reach caller: [phone] Note: Please do not reply to this message. Follow-up communication and further actions as a result of this message need to be communicated with the patient directly, if the patient is not active onMyChart. If the patient is active on MyChart, they will receive notification of the communication/outcome via [employer]. documented in this encounter Plan of Treatment Upcoming Encounters Date Type Department Care Team (Late st Contact Info) Description 11/10/2024 2:00 PM EDT Office Visit [facility] Multidisciplinary Oncology Clinic [address] [place] [address] Faustino Topete MD 800 [facility] [address] [address] documented as of this encounter Visit Diagnoses Not on filedocumented in this encounter Additional Health Concerns Assessment Noted Time A fall risk assessment has been complete d for the patient 11/05/2023 9:22 AM EDT A Body Mass Index follow-up plan has been documented for the patient 12/13/2023 2:27 PM EDT documented as of this encounter Care Teams Bagging Machine Operator Relationship Specialty Start Date End Date Armani Campa MD [address] [place] [address] PCP - General 10/19/22 Kylee James APRN [address] [address] Nurse Practitioner Medical Oncology 03/30/23 Faustino Topete MD [address] [address] Consulting Physician Medical Oncology 12/01/23 documented as of this encounter
--- OUTSIDE RECORDS SUMMARY | 2024-11-08 13:33 | XMS_ITS | Encounter Summary ---
Author Organization [facility] Address [address] [place] [address] Care Team Providers Care Community Services Officer Name Role Phone Armani Campa MD Primary Care Provider [phone] Kylee James VACATION PLANNER Unavailable [phone] Faustino Topete MD Unavailable [phone] Encounter Details Date Type Department Care Team (Late st Contact Info) Description 10/24/2024 Telephone [facility] [address] [place] [address] Faustino Topete MD 800 [facility] [address] [place] [address] Social History Tobacco Use Types [...] drink first t volodymyr in the morning (EYE-AIR CONDITIONING INSTALLER) to steady your nerves or to get [...] * Telephone Encounter - Lucinda Junior - 10/24/2024 12:47 PM EDT 10/24 Called Arabella No scans needed prior to 11/10 appt *Per RN: Jacquelin * Telephone Encounter - Fransisca Jasso - 10/24/2024 11:38 AM EDT Patient Phone Message Reason for Call: Arabella calling about a scan prior to their 11/10 appt with Efrem. If he needs zane a different day, that is ok too as long as its prior to 11.10 Best contact number and optimal time of day to reach caller:[phone] Note: Please do not reply to this message. Follow-up communication and further actions as a result of this message need to be communicated with the patient directly, if the patient is not active onMyChart. If the patient is active on MyChart, they will receive notification of the communication/outcome via Snuppst. documented in this encounter Plan of Treatment Upcoming Encounters Date Type Department Care Team (Late st Contact Info) Description 11/10/2024 2:00 PM EDT Office Visit [place] [facility] [address] [place] [address] Faustino Topete MD 800 [facility] [address] [address] documented as of this encounter Visit Diagnoses Not on filedocumented in this encounter Additional Health Concerns Assessment Noted Time A fall risk assessment has been complete d for the patient 11/05/2023 9:22 AM EDT A Body Mass Index follow-up plan has been documented for the patient 12/13/2023 2:27 PM EDT documented as of this encounter Care Teams Community Services Officer Relationship Specialty Start Date End Date Armani Campa MD [address] [place] [address] PCP - General 10/19/22 Kylee James APRN [address] [address] Nurse Practitioner Medical Oncology 03/30/23 Faustino Topete MD [address] [place] Rosemarie Cheung [address] [address] Consulting Physician Medical Oncology 12/01/23 documented as of this encounter
--- OUTSIDE RECORDS SUMMARY | 2024-11-08 13:33 | XMS_ITS ---
Author Organization [facility] Address [address] 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 Past Treatment and Therapy Plans No past plan information found. Resolved Problems Problem Noted Date Diagnosed Date Resolved Date Small bowel obstruction 11/19/2023 06/2 12/2023
--- OUTSIDE RECORDS SUMMARY | 2024-11-08 13:33 | XMS_ITS | Clinical Summary ---
Author Organization [facility] Address [address] [place] [address] Care Team Providers Care Acoustical Carpenter Name Role Phone Armani Campa MD Primary Care Provider Kylee James APRN Unavailable [phone] Faustino Topete MD Unavailable [phone] Allergies No known active allergies Medications alendronate (Fosamax) 70 MG tablet Take 1 tablet (70 mg) by mouth once a week. 12/26/19 22 Active loratadine (Claritin) 10 MG tablet Take 1 tablet (10 mg) by mouth 1 (one) time each day in the morning. Active amLODIPine (Norvasc) 10 MG tablet Take 1 tablet (10 mg) by mouth 1 (one) time each day in the morning. Active Cyanocobalamin (VITAMIN B-12 PO) Take 1 each by mouth 1 (one) time each day. Active omeprazole (PriLOSEC) [address] capsuleIndications :Gastroesophageal reflux disease, unspecified whether esophagitis present TAKE 1 CAPSULE EVERY DAY 1 HOUR PRIOR TO MEAL (DO NOT CRUSH OR CHEW. SUBSTITUTED FOR PRILOSEC) 90 capsule 3 10/07/19 24 Active Calcium Carb-Cholecalcifer ol (CALCIUM 1000 + D PO) Active loperamide (Imodium A-D) 2 MG tabletIndications: Malignant neuroendocrine neoplasm (CMS/HCC),Diarrhea , unspecified type Take 1 tablet (2 mg) by mouth every 3 (three) hours if needed for diarrhea. Do not exceed 8 tablets in a day. Alternate with lomotil. 240 tablet 3 11/05/19 24 Active diphenoxylate-atro pine (Lomotil) 2.5-0.025 MG tablet Take 1 tablet by mouth 4 (four) times a day if needed for diarrhea. 120 tablet 3 11/05/19 24 Active meloxicam (Mobic) 15 MG tablet Take 1 tablet (15 mg) by mouth Q AM PRN for mild pain. 11/27/19 24 Active octreotide (SandoSTATIN) 1000 MCG/ML injectionIndicatio ns:Malignant neuroendocrine neoplasm (CMS/HCC) Inject 0.2 mL (200 mcg) under the skin 3 (three) times a day if needed (diarrhea). 11/27/19 24 Active Active Problems Problem Noted Date Diagnosed Date [...] left Primary osteoarthritis of right knee 12/25/2021 Resolved Problems Problem Noted Date Diagnosed Date Resolved Date Small bowel obstruction 11/19/2023 06/2 12/2023 Encounters Date Type Department Care Team Description 10/24/2024 Telephone [facility] [address] [place] [address] Faustino Topete MD 10/11/2024 Telephone [facility] [address] [place] [address] Faustino Topete MD from Last 3 Months Immunizations Immunization Administration Dates Next Due Influenza, high-dose, quadrivalent 03/11/2022 Joselo COVID-19 Vaccine (Blue Cap) 18+ 08/08/19 21 Moderna COVID-19 Vaccine (Heat And Frost Insulator Helper) 12+ years Moderna COVID-19 Vaccine Bivalent 6months+ 03/11 Tdap 02/23/2022 Zoster, Recombinant 12/20/2017,09/24/2017 Family History Medical History Relation Name Comments Diabetes Mother Relation Name Status Comments Mother Social History Tobacco Use Types Packs/Day Years Used Date Smoking Tobacco: Never Smokeless Tobacco: Never Tobacco Cessation:Counseling Given: Not Answered Alcohol Use Standard Drinks/Week Comments Never 0 [...] place to sleep or slept in a intermediate (including now)? No 12/01/2023 CAGE ASSESSMENT Answer [...] drink first t volodymyr in the morning (EYE-EMPLOYMENT TRAINER) to steady your nerves or to get [...] PM EDT Sexual Orientation Not on file Last Filed Vital Signs Vital Sign Reading Time Taken Comments Blood Pressure 122/75 12/13/2023 12:48 PM EDT Pulse 103 12/13/2023 12:48 PM EDT Temperature 36.7 C (98 F) 12/13/2023 12:48 PM EDT Respiratory Rate 19 12/13/2023 12:48 PM EDT Oxygen Saturation 93% 12/13/2023 9:09 AM EDT Inhaled Oxygen Concentration - - Weight 53.5 kg (118 lb) 12/01/2023 7:14 AM EDT Height 162.6 cm (5' 4.02 ) 11/21/2023 3:00 PM ED T Body Mass Index 20.24 11/21/2023 3:00 PM EDT Plan of Treatment Upcoming Encounters Date Type Department Care Team (Late st Contact Info) Description 11/10/2024 2:00 PM EDT Office Visit [facility] Multidisciplinary Oncology Clinic [address] [place] [address] Faustino Topete MD 800 [facility] Rosemarie Cheung [facility] [address] [place] [address] Health Maintenance Due Date Last Done Comments [facility]-Bone Density Scan 1943 [facility]-Depression Screening 1943 [facility]-Infant/Child/Adol SDOH Screenings 1945 [facility]-Hepatitis A Vaccines (1 of 2 - Risk 2-dose series) 1962 [facility]-Pneumococcal Vaccine: 50+ Years (1 of 2 - PCV) 1962 [facility]- SDOH Screenings 06/02/2024 [facility]-Adult SDOH Screenings 06/02/2024 12/01/2023 [id number] Vaccine (2023- season) 2024 03/12/2024, 03/12/2023, 03/11/2022, Additional history exists [facility]-Medicare Annual Wellness (AWV) 02/14/2025 02/15/2024, 07/02/2022 [facility]-DTaP,Tdap,and Td Vaccines (3 - Td or Tdap) 12/20/2033 12/21/2023, 02/23/2022 [facility]-Zoster Vaccines Completed 12/20/2017, 8 [facility]-Influenza Vaccine Completed 02/28/2024 , 03/12/2023, 03/11/2022 [facility]-RSV Vaccine: 60+ Years or Completed 03/12/2024 HPV Vaccines Aged Out No longer eligi ble based on patient's age to complete this topic [facility]-HIB Vaccines Aged Out No longer e ligible based on patient's age to complete this topic [facility]-IPV Vaccines Aged Out No longer e ligible based on patient's age to complete this topic [facility]-Rotavirus Vaccines Aged Out No lo nger eligible based on patient's age to complete this topic Insurance [employer] Advance Directives * DNR/DNI (Latest Code Status on File) Date Activated Date Inactivated Comments 12/12/2023 10:51 AM 12/13/2023 7:12 PM Question Answer Comments DNR determined on/before admission date? No Patient has decision-making capacity? Yes * Full Code Date Activated Date Inactivated Comments 12/01/2023 5:49 AM 12/12/2023 10:51 AM Question Answer Comments Patient has decision-making capacity? Yes * Full Code Date Activated Date Inactivated Comments 11/19/2023 11:48 PM 11/27/2023 3:38 PM Question Answer Comments Patient has decision-making capacity? Yes * Full Code Date Activated Date Inactivated Comments 01/15/2023 4:54 PM 01/18/2023 7:45 PM Question Answer Comments Patient has decision-making capacity? Yes Care Teams Acoustical Carpenter Relationship Specialty Start Date End Date Armani Campa MD [address] [place] [address] PCP - General 10/19/22 Kylee James APRN [address] [place] Rose[address] Che[address] [place] [address] Nurse Practitioner Medical Oncology 03/30/23 Faustino Topete MD [address] [place] [address] Consulting Physician Medical Oncology 12/01/23
--- OUTSIDE RECORDS SUMMARY | 2024-11-08 13:33 | XMS_ITS | Data Portability ---
Author Organization [facility] RADHA Rice [place] Address [address] [place] [address] Care Team Providers Care Senior Web Services Developer Name Role Phone SEBASTIAN PEPE Referring Provider Assessment Encounter Date Assessment Date Assessment LastModified by Organization Details LastModified Time 07/02/2022 07/02/2022 Symptoms consistent with bladder spasms and overactive bladder. Trial of Vesicare. Not available 07/04/2022 15:48:22 08/20/2022 08/20/2022 Medical management of overactive bladder with Vesicare. Follow up in 6 months. [email or web address] Not available 08/20/2022 14:51:37 Plan of Treatment Reminders Order Date Submit Date Provider Last Modified By Organization Details Last Modified Time Details Appointments None recorded. Lab urinalysis panel, auto 2022 023 [email or web address] 14 [facility] With [address], [place], [address], 3 08:02:57 urinalysis panel, auto 2022 023 [email or web address] 14 [facility] With [address] [place], [address], 3 09:27:49 Referral None recorded. Procedures None recorded. Surgeries None recorded. Imaging None recorded. Medication Orders solifenacin 10 mg tablet 2022 023 [email or web address] 14 [facility], [address], [address], 3 09:10:31 solifenacin 10 mg tablet 2022 [address] [facility], [address] [place], [address], 3 15:05:24 Patient TargetsNo targets recorded. Patient Instructions Encounter Date Encounter Id Patient Instructions Last Modified By Organization Details Last Modified Time 08/20/2022 [id number] learning about healthy weight [email or web address] Not available 08/21/2022 08:02:57 Reason for Referral None Reported. Results Created Date Observation Date Name Description Value Unit Range Abnormal Flag Note LastModifiedBy Organization Detail LastModifiedTime 07/02/1907/02/2022 urina lysis panel , auto Unknown Analyte Clean Catch Not Available [facility] Extended [facility] With [address] [place], [address], 07/02/2022 14:45:06 07/02/19 23 07/02/2022 urina lysis panel , auto Unknown Analyte Yellow Not Available [facility] With [address] [place], [address], 07/02/2022 14:45:06 07/02/19 23 07/02/2022 urina lysis panel , auto Unknown Analyte Clear Not Available [facility] With [address] [place], [address], 07/02/2022 14:45:06 07/02/19 23 07/02/2022 urina lysis panel , auto Unknown Analyte 1.005 Not Available [facility] With [address] [place], [address], 07/02/2022 14:45:06 07/02/19 23 07/02/2022 urina lysis panel , auto Unknown Analyte 1.003- 1.035 Not Available [facility] With [address] [place], [place], [address], 07/02/2022 14:45:06 07/02/19 23 07/02/2022 urina lysis panel , auto Unknown Analyte 8.0 Not Available [facility] With [address] [place], [address], 07/02/2022 14:45:06 07/02/19 23 07/02/2022 urina lysis panel , auto Unknown Analyte 5.0-8. 0 Not Available [facility] Extended [facility] With [address] [place], [address], 07/02/2022 14:45:06 07/02/19 23 07/02/2022 urina lysis panel , auto Unknown Analyte Negati ve Not Available [facility] With [address] [place], [address], 07/02/2022 14:45:06 07/02/19 23 07/02/2022 urina lysis panel , auto Unknown Analyte Negati ve Not Available [facility] With [address] [place], [address], 07/02/2022 14:45:06 07/02/19 23 07/02/2022 urina lysis panel , auto Unknown Analyte Negati ve Not Available [facility] Extended [facility] With [address] [place], [address], 07/02/2022 14:45:06 07/02/19 23 07/02/2022 urina lysis panel , auto Unknown Analyte Negati ve Not Available [facility] Extended Services With [address] [place], [address], 07/02/2022 14:45:06 07/02/19 23 07/02/2022 urina lysis panel , auto Unknown Analyte Negati ve Not Available [facility] Extended Services With [address] [place], [place], [address], 07/02/2022 14:45:06 07/02/19 23 07/02/2022 urina lysis panel , auto Unknown Analyte Negati ve Not Available [facility] Services With [address] [place], [address], 07/02/2022 14:45:06 07/02/19 23 07/02/2022 urina lysis panel , auto Unknown Analyte Normal Not Available [facility] Extended Services With [address] [place], [address], 07/02/2022 14:45:06 07/02/19 23 07/02/2022 urina lysis panel , auto Unknown Analyte Normal Not Available [facility] Extended Services With [address] [place], [address], 07/02/2022 14:45:06 07/02/19 23 07/02/2022 urina lysis panel , auto Unknown Analyte Negati ve Not Available [facility] Extended Services With [address] [place], [address], 07/02/2022 14:45:06 07/02/19 23 07/02/2022 urina lysis panel , auto Unknown Analyte Negati ve Not Available [facility] Extended Services With [address] [place], [address], 07/02/2022 14:45:06 07/02/19 23 07/02/2022 urina lysis panel , auto Unknown Analyte Normal Not Available [facility] Extended Services With [address] [place], [address], 07/02/2022 14:45:06 07/02/19 23 07/02/2022 urina lysis panel , auto Unknown Analyte Normal 1 mg/dl Not Available [facility] Extended Services With [address] [place], [address], 07/02/2022 14:45:06 07/02/19 23 07/02/2022 urina lysis panel , auto Unknown Analyte Negati ve Not Available [facility] Services With [address] [place], [place], [address], 07/02/2022 14:45:06 07/02/19 23 07/02/2022 urina lysis panel , auto Unknown Analyte Negati ve Not Available [facility] With [address] [place], [place], [address], 07/02/2022 14:45:06 07/02/19 23 07/02/2022 urina lysis panel , auto Unknown Analyte Negati ve Not Available [facility] With [address] [place], [place], [address], 07/02/2022 14:45:06 07/02/19 23 07/02/2022 urina lysis panel , auto Unknown Analyte Negati ve Not Available [facility] With [address] [place], [address], 07/02/2022 14:45:06 08/21/19 23 08/20/2022 urina lysis panel , auto Unknown Analyte Clean Catch Not Available [facility] With [address] [place], [address], 08/20/2022 14:41:44 08/21/19 23 08/20/2022 urina lysis panel , auto Unknown Analyte Yellow Not Available [facility] With [address] [place], [place], [address], 08/20/2022 14:41:44 08/21/1908/20/2022 urina lysis panel , auto Unknown Analyte Clear Not Available [facility] With [address] [place], [address], 08/20/2022 14:41:44 08/21/1908/20/2022 urina lysis panel , auto Unknown Analyte 1.005 Not Available [facility] With [address] [place], [address], 08/20/2022 14:41:44 08/21/1908/20/2022 urina lysis panel , auto Unknown Analyte 1.003- 1.035 Not Available [facility] Services With [address] [place], [address], 08/20/2022 14:41:44 08/21/1908/20/2022 urina lysis panel , auto Unknown Analyte 6.5 Not Available [facility] With [address] [place], [address], 08/20/2022 14:41:44 08/21/1908/20/2022 urina lysis panel , auto Unknown Analyte 5.0-8. 0 Not Available [facility] Extended Services With [address] [place], [address], 08/20/2022 14:41:44 08/21/1908/20/2022 urina lysis panel , auto Unknown Analyte Negati ve Not Available [facility] Extended Services With [address] [place], [address], 08/20/2022 14:41:44 08/21/1908/20/2022 urina lysis panel , auto Unknown Analyte Negati ve Not Available [facility] With [address] [place], [place], [address], 08/20/2022 14:41:44 08/21/1908/20/2022 urina lysis panel , auto Unknown Analyte Negati ve Not Available [facility] With [address] [place], [address], 08/20/2022 14:41:44 08/21/1908/20/2022 urina lysis panel , auto Unknown Analyte Negati ve Not Available [facility] With [address] [place], [address], 08/20/2022 14:41:44 08/21/1908/20/2022 urina lysis panel , auto Unknown Analyte Negati ve Not Available [facility] With [address], [place], [address], 08/20/2022 14:41:44 08/21/1908/20/2022 urina lysis panel , auto Unknown Analyte Negati ve Not Available [facility] With [address] [place], [address], 08/20/2022 14:41:44 08/21/1908/20/2022 urina lysis panel , auto Unknown Analyte Normal Not Available [facility] Extended Services With [address] [place], [address], 08/20/2022 14:41:44 08/21/1908/20/2022 urina lysis panel , auto Unknown Analyte Normal Not Available [facility] With [address] [place], [address], 08/20/2022 14:41:44 08/21/1908/20/2022 urina lysis panel , auto Unknown Analyte Negati ve Not Available [facility] Services With [address] [place], [address], 08/20/2022 14:41:44 08/21/1908/20/2022 urina lysis panel , auto Unknown Analyte Negati ve Not Available [facility] Services With [address] [place], [address], 08/20/2022 14:41:44 08/21/1908/20/2022 urina lysis panel , auto Unknown Analyte Normal Not Available [facility] Services With [address] [place], [address], 08/20/2022 14:41:44 08/21/1908/20/2022 urina lysis panel , auto Unknown Analyte Normal 1 mg/dl Not Available [facility] Extended Services With [address] [place], [address], 08/20/2022 14:41:44 08/21/1908/20/2022 urina lysis panel , auto Unknown Analyte Negati ve Not Available [facility] Services With [address] [place], [address], 08/20/2022 14:41:44 08/21/1908/20/2022 urina lysis panel , auto Unknown Analyte Negati ve Not Available [facility] Services With [address] [place], [address], 08/20/2022 14:41:44 08/21/19 23 08/20/2022 urina lysis panel , auto Unknown Analyte Negati ve Not Available [facility] Services With [address], [place], [address], 08/20/2022 14:41:44 08/21/1908/20/2022 urina lysis panel , auto Unknown Analyte Negati ve Not Available [facility] With [address], [place], [address], 08/20/2022 14:41:44 Result Notes None recorded. Procedures Surgical History Date Name Laterality Status Provider Name and Address Organization Details Recorded Time Knee arthroscopy /surgery completed Beverly BLAKE [facility] 07/02/2022 14:43:48 Imaging Results None recorded. Procedure Notes None recorded. Medical Equipment None Reported. Allergies No known drug allergies Medications Name Sig Start Date Stop Date Status Note LastModified by Organization Details LastModified Time oxybutynin chloride ER 10 mg tablet,extend ed release 24 hr Take 1 tablet every day by oral route. 07/02 completed Not Available Not Available Not Available solifenacin 10 mg tablet Take 1 tablet every day by oral route for 90 days. 2022 active Not Available Not Available Not Avai lable meloxicam active Not Available Not Danya ilable Not Available alendronate active Not Available Not A vailable Not Available calcium active Not Available Not Avail able Not Available Pepcid active Not Available Not Availa ble Not Available Claritin active Not Available Not Avai lable Not Available amlodipine active Not Available Not Av ailable Not Available potassium active Not Available Not Danya ilable Not Available Vitals Date Recorded Body height Body mass index (BMI) Body weight Provider Name and Address Organization Details Last Updated DateTime 07/02/2022 154.94 cm 21.4 kg/m2 34548.94 g Beverly BLAKE [facility] 07/02/2022 14:41:26 Date Recorded Body height Body mass index (BMI) Body weight Provider Name and Address Organization Details Last Updated DateTime 08/20/2022 154.94 cm 21.4 kg/m2 55586.94 g Awa Navas [facility] 08/20/2022 14:40:59 Social History Question Answer Notes LastModified by Organizat ion Details LastModified Time Tobacco Smoking Status Never Smoker Beverly Mahmood tico, [facility] 07/02/2022 14:43:28 What Was The Date Of Your Most Recent Tobacco Screening? 08/20/2022 [email or web address] Information not available 08/20/2022 What Is Your Relationship Status? Information not available 07/02/2022 Sex: Unknown Functional Status Question Answer Note LastModified by Organization D etails LastModified Time What is your level of alcohol consumption? None Information not available 07/02/2022 Mental Status None recorded. Family History Relationship Description Onset Age of this Age Resolved Age Notes LastModified by Organization Details LastModified Time Mother Diabetes mellitus [email or web address] Not available 07/2022 14:43:18 Medical History Condition Response Arthritis Y Hypertension Y Gynecological HistoryNo gynecological history recorded. Obstetrics History GPAL:G 0 P 0 0 0 0 Past Encounters Encounter ID Performer Location Encounter Start Date Encounter Closed Date Diagnosis/Indication Diagnosis SNOMED-CT Code Diagnosis ICD10 Code Diagnosis Note [id number] QIAN ARCEO MD [facility] [address] [place] [address] ,[address] [place] [address] 07/02/2022 14:06:12 07/05/2022 04:02:59 Overactive urinary bladder 176835218 N32.81 Nocturia 747270813 R35.1 [id number] MD [facility] [address] [place] [address] ,[place] [address] 08/20/2022 14:40:42 08/22/2022 04:36:15 Overactive urinary bladder 890844787 N32.81 Nocturia 810329798 R35.1 Health Concerns Section Related Observation LastModified by Organization Detai ls LastModified Time None Recorded Concern Status LastModified by Organization Details LastModified Time None Recorded Advance Directives Directive None Recorded Payers Insurance Date Sequence Insurance Name Policy Number Policy Bowen Covered Member ID Bowen Member ID Guarantor Name 08/17/2022 1 [facility] (MEDICAID REPLACEMENT - HMO) Radha Vidales [id number] Radha Vidales Notes Date Note Type Note Provider Name and Address Organization Details Recorded Time 07/02/2022 text/html 76-year-old harleen brasher in the office for my initial evaluation for discussion of irritative voiding symptoms. She voids hourly with nocturia 2 or 3 times nightly. She previously had symptoms of hesitancy, now improved. She does have urgency. No gross hematuria or dysuria. She complains of lower extremity edema. She complains of discomfort following urination, not during urination. QIAN ARCEO MD [facility] [place], [address], [facility] 07/04/2022 15:53:03 08/20/2022 text/html 77-year-old harleen brasher in the office for evaluation for discussion of irritative voiding symptoms and overactive bladder. She has noticed improvement with solifenacin. She previously had symptoms of urgency, now improved. No hesitancy. Daytime frequency every 4 hours. Nocturia 3-4 times per night. No gross hematuria or dysuria. Her force of stream is slower but not of concern to patient. QIAN ARCEO MD [facility] [place], [address], [facility] 08/21/2022 08:03:15 OBGyn Episode No OBEpisode recorded.
[2024-11-08 13:40] VITALS: BP 154/75; PULSE 79; RESP 18; TEMP 36.7; O2SAT 96
[2024-11-08] MEDS: ZOLEDRONIC ACID/MANNITOL-WATER 5 MG/100 ML PGGYBK.BTL 400 MG IV (13:58)
== END 2024-11-08 14:15 | disposition home or self-care (01) ==
LOC: INF 13:27
PROVIDERS: PCP Family Medicine; Visit Provider Family Medicine
DX: M81.0 Age-related osteoporosis without current pathological fracture (principal)
CPT/HCPCS: 96374; 96365; J3489

== ENCOUNTER 2024-11-17 10:45 | Outpatient (CLI) | payer MEDICARE, SELFPAY ==
--- OUTSIDE RECORDS SUMMARY | 2024-11-10 14:00 | XMS_ITS | Encounter Summary ---
Author Organization [facility] Address [address] [place] [address] Care Team Providers Care Hospice Home Care Coordinator Name Role Phone Armani Campa MD Primary Care Provider [phone] Kylee James FOOTBALL COACH Unavailable [phone] Faustino Topete MD Unavailable [phone] Reason for Visit * Reason Comments Follow-up Malignant neuroendoc rine neoplasm Encounter Details Date Type Department Care Team (Late st Contact Info) Description 11/10/2024 2:[address] PM [address]T Office Visit 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 No 12/01/2023 CAGE ASSESSMENT Answer [...] drink first t volodymyr in the morning (EYE-BREWMASTER) to steady your nerves or to get rid of a hangover? 0 12/02/2023 CAGE Questionnaire Score 0 024 Utilities Answer Date Recorded In the past 12 months has th e [employer], gas, oil, or water company threatened to [...] had. Currently in hospice. 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 I spent 30 minutes rxkc-bm-emzz with the patient and wdb-jrpf-nd-face time, over half in discussionof the diagnosis and the importance of compliance with the treatment plan. Faustino Topete MD, FACP [facility] [address] [facility], [address] [place] [address] documented in this encounter Plan of Treatment Upcoming Encounters Date Type Department Care Team ([facility] st Contact Info) Description 12/05/2024 10:30 AM EDT Office Visit 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) Expected: 11/10/2024 (Approximate), Expires: 05/14/2026 documented as of this encounter Procedures Procedure [...] - 2.4 mg/dL 11/10/2024 4:51 PM EDT [facility] Blood Venous blood specimen / Unknown Venipuncture / Unknown 11/10/2024 4:02 PM EDT 11/10/2024 4:18 PM EDT us Faustino Topete MD LAB BLOOD ORDERABLES Final R esult [facility] [address] [place] [address] * (ABNORMAL) Chromogranin A (11/10/2024 4:02 PM EDT) CHROMOGRANIN A 1622(H) <93 ng/mL 11/14/2024 6:56 PM EDT [facility] ([facility]) Comment: Impaired renal or hepatic function or treatment with proton pump inhibitors may result in artifactual elevations of Chromogranin A. ADDITIONAL INFORMATION The testing method is a homogeneous time-resolved immunofluorescent assay manufactured by [employer] and performed on the Double Fusion KrPliz[employer] Compact Plus. Values obtained with different assay [...] examination and other findings. Test Performed by: [place] [address] Mathematical Technician: David Hawkins Ph.D.; CLIA# [id number] Blood Venous blood specimen / Unknown Venipuncture / Unknown 11/10/2024 4:02 PM EDT 11/10/2024 4:19 PM EDT us Faustino Topete MD LAB BLOOD ORDERABLES Final R esult [facility] ([facility]) * (ABNORMAL) Serotonin, Serum (11/10/2024 4:02 PM EDT) SEROTONIN 1449(H) 50 - 220 ng/mL 11/13/2024 6:02 AM EDT [facility] ([facility]) Serum Venous blood specimen / Unknown 11/10/2024 4:02 PM EDT 11/10/2024 4:18 PM EDT Narrative [facility] ([facility]) - 11/13/2024 6:02 AM EDT TEST INFORMATION: Serotonin, Serum This test was developed and its performance characteristics determined by [facility]. It has not been cleared or approved by the US Food and Drug Administration. This test was performed in a CLIA certified laboratory and is intended for clinical purposes. Performed By: [facility] [address] [place] [address] Certified Nurse Practitioner: Kurt Borges MD, PhD CLIA Number: [id number] Faustino Topete MD LAB BLOOD ORDERABLES Final R esult [facility] ([facility]) [address] [place] [address] * (ABNORMAL) Comprehensive metabolic panel (11/10/2024 4:02 PM EDT) Glucose, Plasma 92 74 - 99 mg/dL 11/10/2024 4:51 PM EDT [facility] BUN, Plasma 14 8 - 23 mg/dL 11/10/2024 4:51 PM EDT [facility] Creatinine, Plasma 0.57(L) 0.60 - 1.10 mg/dL 11/10/2024 4:51 PM EDT [facility] BUN/Creatinine Ratio 25 11/10/2024 4:51 PM EDT [facility] Sodium, Plasma 141 136 - 145 mmol/L 11/10/2024 4:51 PM EDT [facility] Potassium, Plasma 3.4(L) 3.6 - 4.9 mmol/L 11/10/2024 4:51 PM EDT [facility] Chloride, Plasma 106 97 - 107 mmol/L 11/10/2024 4:51 PM EDT [facility] CO2, Plasma 21(L) 22 - 29 mmol/L 11/10/2024 4:51 PM EDT [facility] Anion Gap 14 6 - 16 mmol/L 11/10/2024 4:51 PM EDT [facility] Total Calcium, Plasma 8.6(L) 8.9 - 10.2 mg/dL 11/10/2024 4:51 PM EDT [facility] Total Protein 7.4 6.3 - 7.9 g/dL 11/10/2024 4:51 PM EDT [facility] Albumin, Plasma 3.8 3.5 - 5.2 g/dL 11/10/2024 4:51 PM EDT [facility] AST, Plasma 36(H) 10 - 35 U/L 11/10/2024 4:51 PM EDT [facility] ALT, Plasma 20 10 - 35 U/L 11/10/2024 4:51 PM EDT [facility] Alkaline Phosphatase, Plasma 98 46 - 142 U/L 11/10/2024 4:51 PM EDT [facility] Total Bilirubin, Plasma 0.3 0.2 - 1.1 mg/dL 11/10/2024 4:51 PM EDT [facility] eGFRcr 91.4 mL/min/1.7 3m*2 11/10/2024 4:51 PM EDT [facility] Comment:Reported eGFRcr in m L/min/1.73m2 is based the CKD-EPI 2020 equation that does not use a race coefficient. Blood Venous blood specimen / Unknown Venipuncture / Unknown 11/10/2024 4:02 PM EDT 11/10/2024 4:18 PM EDT us Faustino Topete MD LAB BLOOD ORDERABLES Final R esult [facility] [address] [place] [address] * (ABNORMAL) CBC and differential (11/10/2024 4:02 PM EDT) WBC Count 6.30 3.70 - 10.30 10*3/uL LAB HEMATOLOGY METHOD 11/10/2024 5:55 PM EDT [facility] RBC Count 4.67 3.90 - 5.20 10*6/uL LAB HEMATOLOGY METHOD 11/10/2024 5:55 PM EDT [facility] HGB 11.7 11.2 - 15.7 g/dL LAB HEMATOLOGY METHOD 11/10/2024 5:55 PM EDT [facility] HCT 37.8 34.0 - 45.0 % LAB HEMATOLOGY METHOD 11/10/2024 5:55 PM EDT [facility] Platelet Count 138(L) 155 - 369 10*3/uL LAB HEMATOLOGY METHOD 11/10/2024 5:55 PM EDT [facility] MCV 81 79 - 98 fL LAB HEMATOLOGY METHOD 11/10/2024 5:55 PM EDT [facility] MCH 25.1(L) 26.0 - 32.0 pg LAB HEMATOLOGY METHOD 11/10/2024 5:55 PM EDT [facility] MCHC 31.0 30.7 - 35.5 g/dL LAB HEMATOLOGY METHOD 11/10/2024 5:55 PM EDT [facility] RDW 16.1(H) 11.5 - 14.5 % LAB HEMATOLOGY METHOD 11/10/2024 5:55 PM EDT [facility] MPV LAB HEMATOLOGY METHOD 11/10/2024 5:55 PM EDT [facility] Comment:Not Measured nRBC 0.0 <=0.0 per 100 WBCs LAB HEMATOLOGY METHOD 11/10/2024 5:55 PM EDT [facility] Differential Type Automated LAB HEMATOLOGY METHOD 11/10/2024 5:55 PM EDT [facility] Neutrophils % 75 % LAB HEMATOLOGY METHOD 11/10/2024 5:55 PM EDT [facility] Lymphocytes % 15 % LAB HEMATOLOGY METHOD 11/10/2024 5:55 PM EDT [facility] Monocytes % 9 % LAB HEMATOLOGY METHOD 11/10/2024 5:55 PM EDT [facility] Eosinophils % 1 % LAB HEMATOLOGY METHOD 11/10/2024 5:55 PM EDT [facility] Basophils % 0 % LAB HEMATOLOGY METHOD 11/10/2024 5:55 PM EDT [facility] Immature Granulocytes % 0 % LAB HEMATOLOGY METHOD 11/10/2024 5:55 PM EDT [facility] Neutrophils Absolute 4.69 1.60 - 6.10 10*3/uL LAB HEMATOLOGY METHOD 11/10/2024 5:55 PM EDT [facility] Lymphocytes Absolute 0.95(L) 1.20 - 3.90 10*3/uL LAB HEMATOLOGY METHOD 11/10/2024 5:55 PM EDT [facility] Monocytes Absolute 0.54 0.30 - 0.90 10*3/uL LAB HEMATOLOGY METHOD 11/10/2024 5:55 PM EDT [facility] Eosinophils Absolute 0.08 0.00 - 0.50 10*3/uL LAB HEMATOLOGY METHOD 11/10/2024 5:55 PM EDT [facility] Basophils Absolute 0.02 0.00 - 0.10 10*3/uL LAB HEMATOLOGY METHOD 11/10/2024 5:55 PM EDT [facility] Immature Granulocytes Absolute 0.02 0.00 - 0.06 10*3/uL LAB HEMATOLOGY METHOD 11/10/2024 5:55 PM EDT [facility] Blood Venous blood specimen / Unknown Venipuncture / Unknown 11/10/2024 4:02 PM EDT 11/10/2024 4:27 PM EDT Narrative [facility] - 11/10/2024 5:55 PM EDT Therapeutic decision making should be based on absolute values, rather than percentages. us Faustino Topete MD LAB BLOOD ORDERABLES Final R esult [facility] [address] [place] [address] documented in this encounter Visit Diagnoses Diagnosis [...] documented as of this encounter Care Teams Hospice Home Care Coordinator Relationship Specialty Start Date End Date Armani Campa MD [address] [place] [id number] PCP - General 10/19/22 Kylee James APRN [address] [place] [address] Nurse Practitioner Medical Oncology 03/30/23 Faustino Topete MD [address] [place] [address] Consulting Physician Medical Oncology 12/01/23 documented as of this encounter
--- OUTSIDE RECORDS SUMMARY | 2024-11-17 10:48 | XMS_ITS ---
Author Name Auto Generated, Auto Generated Organization [facility] Address [address] [place] [address] Phone [phone] Care Team Providers Care Pelletizer Name Role Phone Rigo López Unavailable [phone] Lucinda Schumacher Unavailable Armani Campa Unavailable Functional Status No Results Mental Status No Results Allergies and Intolerances Name Onset Date Reaction Severity No Known Drug Allergies (Allergy) WedDec 13 12: 47:00 EDT 2023 Encounters Program Name Primary Diagnosis Admission Date/Time Dis charge Date/Time Home-based Hospice WedDec 11 20 :00:00 EDT 2023October 07 19:59:59 EDT 2024 Medications Medication Directions Start Date End Date potassium chloride ER 20 mEq tablet,extended release(part/cryst) 1 Tablet Oral Every Morning Indication: Supplement WedAug 17 00:00:00 EDT 2024Aug 17 16:46:00 EDT 2024 potassium chloride ER 20 mEq tablet,extended release 1 Tablet Oral Every Morning Indication: Supplement WedAug 17 00:00:00 EDT 2024October 07 00:00:00 EDT 2024 amoxicillin 500 mg tablet 1 Tablet Oral Every 8 Hours for 7 Days Indication: Upper respiratory infection WedJul 26 00:00:00 EST 2024Aug 01 23:59:00 EST 2024 nystatin 100,000 unit/gram topical powder 1 Gram Topical PRN Every 8 Hours Indication: Excoriation WedJul 14 00:00:00 EST 2024October 07 00:00:00 EDT 2024 amLODIPine 5 mg tablet 1 Tablet Oral 1 T breanna Daily Indication: HTN WedMay 01 00:00:00 EST 2023October 07 00:00: EDT 2024 octreotide acetate 200 mcg/mL injection solution 1 Milliliter Intramuscular PRN 3 Times Daily Indication: diarrhea WedFeb 07 00:00:00 EDT 2023October 07 00:00:00 EDT 2024 sodium chloride 0.9 % irrigation solution 5 Milliliter Topical 2 Times Daily Indication: cleanse around gtube site WedJan 24 00:00:00 EDT 2023October 07 00:00:00 EDT 2024 potassium chloride 20 mEq/15 mL oral liquid 15 Milliliter Oral 2 Times Daily Indication: low potassium WedJan 04 00:00:00 EDT 2023Aug 17 15:23:00 EDT 2024 nystatin 100,000 unit/gram topical cream 1 Application Topical 2 Times Daily Indication: PEG tube redness. apply around PEG tube site 2x daily for redness WedDec 29 00:00:00 EDT 2023October 07 00:00:00 EDT 2024 Lidocaine Viscous 2 % mucosal solution 10 Milliliter Oral PRN Every 4 Hours Indication: sore throat WedDec 21 00:00:00 EDT 2023October 07 00:: EDT 2024 diclofenac 1 % topical gel 2 Gram Topica l PRN 2 Times Daily Indication: pain WedDec 16 00:00:00 EDT 2023Dec 16 11:28:00 EDT 2023 oxyCODONE 10 mg tablet 1 Tablet Oral PRN Every 6 Hours Indication: Pain MDD 4 WedDec 13 00:00:00 EDT 2023October 07 00:00:00 EDT 2024 amLODIPine 10 mg tablet 1 Tablet Oral 1 Time Daily Indication: HTN WedDec 13 00:00:00 EDT 2023Dec 29 10:10:00 EDT 2023 LomotiL 2.5 mg-0.025 mg tablet 1 Tablet Oral PRN 4 Times Daily Indication: diarrhea WedDec 13 00:00:00 EDT 2023October 07 00:00:00 EDT 2024 loperamide 2 mg tablet 1 Tablet Oral PRN Every 3 Hours Indication: Diarrhea, Do not exceed 8 tablets in 24 hours WedDec 13 00:00:00 EDT 2023October 07 00:00:00 EDT 2024 loratadine 10 mg tablet 1 Tablet Oral 1 Time Daily Indication: allergies WedDec 13 00:00:00 EDT 2023October 07 00:00:00 EDT 2024 octreotide acetate 1,000 mcg/mL injection solution 0.2 Milliliter Intramuscular PRN 3 Times Daily Indication: diarrhea WedDec 13 00:00:00 EDT 2023Feb 07 11:23:00 EDT 2023 omeprazole 40 mg capsule,delayed release 1 Capsule Oral 1 Time Daily Indication: GERD WedDec 13 00:00:00 EDT 2023October 07 00:00:00 EDT 2024 ondansetron 4 mg disintegrating tablet 1 Tablet Oral PRN Every 6 Hours Indication: n/v WedDec 13 00:00:00 EDT 2023October 07 00:00:00 EDT 2024 prochlorperazine maleate 10 mg tablet 1 Tablet Oral PRN Every 6 Hours Indication: N/V WedDec 13 00:00:00 EDT 2023October 07 00:00:00 EDT 2024 Treatment Plan Problems No Known Problems Vital Signs Vital Sign Measurement Date Systolic blood pressure 130 mm[Hg] WedOctober 04 08:15:00 EDT 2024 Diastolic blood pressure 70 mm[Hg] WedOctober 04 08:15:00 EDT 2024 Respiratory rate 20 /min WedOctober 04 08:1 5:00 EDT 2024 Heart rate 80 /min WedOctober 04 08:15 :00 EDT 2024 Systolic blood pressure 140 mm[Hg] WedApr 05 08:00:00 EST 2023 Diastolic blood pressure 90 mm[Hg] WedApr 05 08:00:00 EST 2023 Respiratory rate 16 /min WedApr 05 08:0 0:00 EST 2023 Heart rate 67 /min WedApr 05 08:00 :00 EST 2023 Systolic blood pressure 110 mm[Hg] WedMay 01 09:36:00 EST 2023 Diastolic blood pressure 68 mm[Hg] WedMay 01 09:36:00 EST 2023 Respiratory rate 16 /min WedMay 01 09:3 6:00 EST 2023 Heart rate 97 /min WedMay 01 09:36 :00 EST 2023 Systolic blood pressure 130 mm[Hg] WedMay 29 05:35:00 EST 2023 Diastolic blood pressure 64 mm[Hg] WedMay 29 05:35:00 EST 2023 Respiratory rate 20 /min WedMay 29 05:3 5:00 EST 2023 Heart rate 72 /min WedMay 29 05:35 :00 EST 2023 Respiratory rate 18 /min WedDec 27 05:3 5:00 EDT 2023 Systolic blood pressure 130 mm[Hg] WedMar 28 09:30:00 EDT 2023 Diastolic blood pressure 80 mm[Hg] WedMar 28 09:30:00 EDT 2023 Respiratory rate 16 /min WedMar 28 09:3 0:00 EDT 2023 Body weight 113 [lb_av] WedAug 07 08:00 :00 EDT 2024 Systolic blood pressure 140 mm[Hg] WedAug 07 08:00:00 EDT 2024 Diastolic blood pressure 90 mm[Hg] WedAug 07 08:00:00 EDT 2024 Respiratory rate 20 /min WedAug 07 08:0 0:00 EDT 2024 Heart rate 96 /min WedAug 07 08:00 :00 EDT 2024 Systolic blood pressure 120 mm[Hg] WedAug 30 07:15:00 EDT 2024 Diastolic blood pressure 70 mm[Hg] WedAug 30 07:15:00 EDT 2024 Respiratory rate 14 /min WedAug 30 07:1 5:00 EDT 2024 Heart rate 82 /min WedAug 30 07:15 :00 EDT 2024 Systolic blood pressure 120 mm[Hg] WedApr 17 06:30:00 EST 2023 Diastolic blood pressure 78 mm[Hg] WedApr 17 06:30:00 EST 2023 Respiratory rate 16 /min WedApr 17 06:3 0:00 EST 2023 Heart rate 70 /min WedApr 17 06:30 :00 EST 2023 Systolic blood pressure 126 mm[Hg] WedAug 22 09:15:00 EDT 2024 Diastolic blood pressure 80 mm[Hg] WedAug 22 09:15:00 EDT 2024 Respiratory rate 18 /min WedAug 22 09:1 5:00 EDT 2024 Heart rate 76 /min WedAug 22 09:15 :00 EDT 2024 Systolic blood pressure 180 mm[Hg] Ailyn Sep 09:30:00 EDT 2023 Diastolic blood pressure 90 mm[Hg] [facility] Sep 09:30:00 EDT 2023 Respiratory rate 18 /min [facility] Sep 09:3 0:00 EDT 2023 Body weight 113 [lb_av] WedSep 27 11:50 :00 EDT 2024 Systolic blood pressure 112 mm[Hg] WedSep 27 11:50:00 EDT 2024 Diastolic blood pressure 60 mm[Hg] WedSep 27 11:50:00 EDT 2024 Respiratory rate 20 /min WedSep 27 11:5 0:00 EDT 2024 Heart rate 84 /min WedSep 27 11:50 :00 EDT 2024 Systolic blood pressure 160 mm[Hg] WedJun 14 08:30:00 EST 2024 Diastolic blood pressure 90 mm[Hg] WedJun 14 08:30:00 EST 2024 Respiratory rate 20 /min WedJun 14 08:3 0:00 EST 2024 Heart rate 76 /min WedJun 14 08:30 :00 EST 2024 Body weight 108 [lb_av] WedDec 13 07:15 :00 EDT 2023 Systolic blood pressure 118 mm[Hg] WedDec 13 07:15:00 EDT 2023 Diastolic blood pressure 70 mm[Hg] WedDec 13 07:15:00 EDT 2023 Respiratory rate 16 /min WedDec 13 07:1 5:00 EDT 2023 Heart rate 84 /min WedDec 13 07:15 :00 EDT 2023 Body weight 113 [lb_av] WedAug 02 07:11 :00 EST 2024 Systolic blood pressure 128 mm[Hg] WedAug 02 07:11:00 EST 2024 Diastolic blood pressure 76 mm[Hg] WedAug 02 07:11:00 EST 2024 Respiratory rate 18 /min WedAug 02 07:1 1:00 EST 2024 Heart rate 70 /min WedAug 02 07:11 :00 EST 2024 Systolic blood pressure 138 mm[Hg] Ialyn Sep 14 10:16:00 EDT 2024 Diastolic blood pressure 70 mm[Hg] Ailyn Sep 14 10:16:00 EDT 2024 Respiratory rate 20 /min WedSep 14 10:1 6:00 EDT 2024 Heart rate 80 /min Ailyn Sep 14 10:16 :00 EDT 2024 Systolic blood pressure 140 mm[Hg] WedMay 17 08:30:00 EST 2023 Diastolic blood pressure 76 mm[Hg] WedMay 17 08:30:00 EST 2023 Respiratory rate 16 /min WedMay 17 08:3 0:00 EST 2023 Heart rate 78 /min WedMay 17 08:30 :00 EST 2023 Systolic blood pressure 104 mm[Hg] WedDec 21 07:50:00 EDT 2023 Diastolic blood pressure 60 mm[Hg] WedDec 21 07:50:00 EDT 2023 Respiratory rate 20 /min WedDec 21 07:5 0:00 EDT 2023 Heart rate 80 /min WedDec 21 07:50 :00 EDT 2023 Systolic blood pressure 136 mm[Hg] WedJul 26 07:30:00 EST 2024 Diastolic blood pressure 80 mm[Hg] WedJul 26 07:30:00 EST 2024 Respiratory rate 20 /min WedJul 26 07:3 0:00 EST 2024 Heart rate 88 /min WedJul 26 07:30 :00 EST 2024 Systolic blood pressure 118 mm[Hg] WedJan 04 09:00:00 EDT 2023 Diastolic blood pressure 80 mm[Hg] WedJan 04 09:00:00 EDT 2023 Respiratory rate 20 /min WedJan 04 09:0 0:00 EDT 2023 Heart rate 70 /min WedJan 04 09:00 :00 EDT 2023 Systolic blood pressure 138 mm[Hg] WedJan 24 08:10:00 EDT 2023 Diastolic blood pressure 78 mm[Hg] WedJan 24 08:10:00 EDT 2023 Respiratory rate 20 /min WedJan 24 08:1 0:00 EDT 2023 Heart rate 80 /min WedJan 24 08:10 :00 EDT 2023 Systolic blood pressure 130 mm[Hg] WedMar 06 09:20:00 EDT 2023 Diastolic blood pressure 90 mm[Hg] WedMar 06 09:20:00 EDT 2023 Respiratory rate 16 /min WedMar 06 09:2 0:00 EDT 2023 Heart rate 70 /min WedMar 06 09:20 :00 EDT 2023 Systolic blood pressure 140 mm[Hg] WedFeb 24 05:26:00 EDT 2023 Diastolic blood pressure 80 mm[Hg] WedFeb 24 05:26:00 EDT 2023 Respiratory rate 16 /min WedFeb 24 05:2 6:00 EDT 2023 Heart rate 78 /min WedFeb 24 05:26 :00 EDT 2023 Systolic blood pressure 130 mm[Hg] WedMar 01 09:05:00 EDT 2023 Diastolic blood pressure 80 mm[Hg] WedMar 01 09:05:00 EDT 2023 Respiratory rate 16 /min WedMar 01 09:0 5:00 EDT 2023 Heart rate 70 /min WedMar 01 09:05 :00 EDT 2023 Body weight 113.4 [lb_av] WedJun 09 08:00 :00 EST 2024 Systolic blood pressure 150 mm[Hg] WedJun 09 08:00:00 EST 2024 Diastolic blood pressure 90 mm[Hg] WedJun 09 08:00:00 EST 2024 Respiratory rate 20 /min WedJun 09 08:0 0:00 EST 2024 Heart rate 80 /min WedJun 09 08:00 :00 EST 2024 Systolic blood pressure 136 mm[Hg] WedJan 10 07:10:00 EDT 2023 Diastolic blood pressure 70 mm[Hg] WedJan 10 07:10:00 EDT 2023 Respiratory rate 20 /min WedJan 10 07:1 0:00 EDT 2023 Heart rate 80 /min WedJan 10 07:10 :00 EDT 2023 Systolic blood pressure 126 mm[Hg] WedApr 25 06:45:00 EST 2023 Diastolic blood pressure 74 mm[Hg] WedApr 25 06:45:00 EST 2023 Respiratory rate 16 /min WedApr 25 06:4 5:00 EST 2023 Oxygen saturation in Arteria l blood by Pulse oximetry 97 % WedApr 25 06:45:00 EST 2023 Heart rate 88 /min WedApr 25 06:45 :00 EST 2023 Body weight 114 [lb_av] WedJul 12 09:45 :00 EST 2024 Systolic blood pressure 150 mm[Hg] WedJul 12 09:45:00 EST 2024 Diastolic blood pressure 80 mm[Hg] WedJul 12 09:45:00 EST 2024 Respiratory rate 20 /min WedJul 12 09:4 5:00 EST 2024 Heart rate 80 /min WedJul 12 09:45 :00 EST 2024 Systolic blood pressure 132 mm[Hg] WedJun 30 11:00:00 EST 2024 Diastolic blood pressure 76 mm[Hg] WedJun 30 11:00:00 EST 2024 Respiratory rate 20 /min WedJun 30 11:0 0:00 EST 2024 Heart rate 76 /min WedJun 30 11:00 :00 EST 2024 Systolic blood pressure 130 mm[Hg] WedJul 21 06:04:00 EST 2024 Diastolic blood pressure 80 mm[Hg] WedJul 21 06:04:00 EST 2024 Respiratory rate 16 /min WedJul 21 06:0 4:00 EST 2024 Heart rate 76 /min WedJul 21 06:04 :00 EST 2024 Systolic blood pressure 108 mm[Hg] WedDec 29 05:30:00 EDT 2023 Diastolic blood pressure 64 mm[Hg] WedDec 29 05:30:00 EDT 2023 Respiratory rate 18 /min WedDec 29 05:3 0:00 EDT 2023 Heart rate 80 /min Ailyn Dec 29 05:30 :00 EDT 2023 Systolic blood pressure 140 mm[Hg] Tue Sep 10 07:02:00 EDT 2023 Diastolic blood pressure 80 mm[Hg] Tue Sep 10 07:02:00 EDT 2023 Respiratory rate 18 /min Tue Sep 10 07:0 2:00 EDT 2023 Heart rate 72 /min Tue Sep 10 07:02 :00 EDT 2023 Systolic blood pressure 140 mm[Hg] Wed Sep 06 10:24:00 EDT 2024 Diastolic blood pressure 80 mm[Hg] Wed Aug 09 10:24:00 EDT 2024 Respiratory rate 20 /min Wed Aug 09 10:2 4:00 EDT 2024 Heart rate 84 /min Wed Aug 09 10:24 :00 EDT 2024 Systolic blood pressure 148 mm[Hg] Wed Sep 18 07:15:00 EDT 2023 Diastolic blood pressure 88 mm[Hg] Wed Sep 18 07:15:00 EDT 2023 Respiratory rate 16 /min Wed Sep 18 07:1 5:00 EDT 2023 Systolic blood pressure 128 mm[Hg] WedJun 23 06:40:00 EST 2024 Diastolic blood pressure 80 mm[Hg] WedJun 23 06:40:00 EST 2024 Respiratory rate 16 /min WedJun 23 06:4 0:00 EST 2024 Heart rate 98 /min WedJun 23 06:40 :00 EST 2024 Systolic blood pressure 112 mm[Hg] WedDec 16 08:30:00 EDT 2023 Diastolic blood pressure 68 mm[Hg] WedDec 16 08:30:00 EDT 2023 Respiratory rate 16 /min WedDec 16 08:3 0:00 EDT 2023 Heart rate 80 /min WedDec 16 08:30 :00 EDT 2023 Systolic blood pressure 118 mm[Hg] WedJan 17 06:35:00 EDT 2023 Diastolic blood pressure 70 mm[Hg] WedJan 17 06:35:00 EDT 2023 Respiratory rate 20 /min WedJan 17 06:3 5:00 EDT 2023 Heart rate 56 /min WedJan 17 06:35 :00 EDT 2023 Systolic blood pressure 130 mm[Hg] WedMar 22 07:06:00 EDT 2023 Diastolic blood pressure 80 mm[Hg] WedMar 22 07:06:00 EDT 2023 Heart rate 92 /min WedMar 22 07:06 :00 EDT 2023 Systolic blood pressure 140 mm[Hg] WedMar 14 09:15:00 EDT 2023 Diastolic blood pressure 90 mm[Hg] WedMar 14 09:15:00 EDT 2023 Systolic blood pressure 120 mm[Hg] WedApr 11 08:36:00 EST 2023 Diastolic blood pressure 80 mm[Hg] WedApr 11 08:36:00 EST 2023 Respiratory rate 16 /min WedApr 11 08:3 6:00 EST 2023 Heart rate 70 /min WedApr 11 08:36 :00 EST 2023 Systolic blood pressure 162 mm[Hg] Wed Sep 06:50:00 EDT 2023 Diastolic blood pressure 76 mm[Hg] Wed Feb 01 06:50:00 EDT 2023 Respiratory rate 20 /min Wed Sep 04 06:5 0:00 EDT 2023 Heart rate 80 /min Wed Feb 01 06:50 :00 EDT 2023 Body weight 113.4 [lb_av] Ailyn Aug 17 11:30 :00 EDT 2024 Systolic blood pressure 132 mm[Hg] Ailyn Aug 17 11:30:00 EDT 2024 Diastolic blood pressure 84 mm[Hg] WedAug 17 11:30:00 EDT 2024 Respiratory rate 20 /min WedAug 17 11:3 0:00 EDT 2024 Heart rate 88 /min WedAug 17 11:30 :00 EDT 2024 Body weight 112 [lb_av] WedMay 12 07:00 :00 EST 2023 Systolic blood pressure 160 mm[Hg] WedMay 12 07:00:00 EST 2023 Diastolic blood pressure 84 mm[Hg] WedMay 12 07:00:00 EST 2023 Respiratory rate 20 /min WedMay 12 07:0 0:00 EST 2023 Heart rate 76 /min WedMay 12 07:00 :00 EST 2023 Reason for Referral
--- OUTSIDE RECORDS SUMMARY | 2024-11-17 10:49 | XMS_ITS | Encounter Summary ---
Author Organization [facility] Address [address] [place] [address] Care Team Providers Care Pension Consultant Name Role Phone Armani Campa MD Primary Care Provider [phone] Kylee James APRN Unavailable [phone] Faustino Topete MD Unavailable [phone] Encounter Details Date Type Department Care Team (Latest Contact Info) Description 11/09/2024 Travel Social History Tobacco Use Types Packs/Day Years [...] place to sleep or slept in a fdc (including now)? No 12/01/2023 CAGE ASSESSMENT Answer [...] drink first t volodymyr in the morning (EYE-FUEL BUYER) to steady your nerves or to get [...] on file documented as of this encounter Plan of Treatment Upcoming Encounters Date Type Department Care Team (Late st Contact Info) Description 12/05/2024 10:30 AM EDT Office Visit [facility] Multidisciplinary Oncology Clinic [address] [place] [address] Shannon Aguero, CASH POSTER [address] [facility] [address] [place] [id number] documented as of this encounter Visit Diagnoses Not on filedocumented in this encounter Additional Health Concerns Assessment Noted Time A fall risk assessment has been complete d for the patient 11/05/2023 9:22 AM EDT A Body Mass Index follow-up plan has been documented for the patient 12/13/2023 2:27 PM EDT documented as of this encounter Care Teams Pension Consultant Relationship Specialty Start Date End Date Armani Campa MD [address] [place] [address] PCP - General 10/19/22 Kylee James APRN [address] [facility] [address] [place] [address] Nurse Practitioner Medical Oncology 03/30/23 Faustino Topete MD [address] [facility] [address] [place] [address] Consulting Physician Medical Oncology 12/01/23 documented as of this encounter
--- OUTSIDE RECORDS SUMMARY | 2024-11-17 10:49 | XMS_ITS ---
Author Organization [facility] Address [address] [place] [address] Care Team Providers Care Professor Of Biology Name Role Phone Armani Campa MD Primary Care Provider [phone] Kylee James APRN Unavailable [phone] Faustino Topete MD Unavailable [phone] Active Problems Problem Noted Date Diagnosed Date [...] 12/25/2021 S/P TKR (total knee replacement), left 2 Primary osteoarthritis of right knee 12/25/2021 Current [...]
--- OUTSIDE RECORDS SUMMARY | 2024-11-17 10:49 | XMS_ITS | Encounter Summary ---
Author Organization [facility] Address [address] [place] [address] Care Team Providers Care Midwife Name Role Phone Armani Campa MD Primary Care Provider [phone] Kylee James APRN Unavailable [phone] Faustino Topete MD Unavailable [phone] Encounter Details Date Type Department Care Team (Late st Contact Info) Description 10/24/2024 Telephone [facility] [address] [place] [address] Faustino Topete MD [address] [facility] [address] [place] [address] Social History Tobacco Use Types [...] drink first t volodymyr in the morning (EYE-CAKE MIXER) to steady your nerves or to get [...] and optimal time of day to reach caller:[phone] Note: Please do not reply to this message. Follow-up communication and further actions as a result of this message need to be communicated with the patient directly, if the patient is not active onMyChart. If the patient is active on MyChart, they will receive notification of the communication/outcome via [employer]. documented in this encounter Plan of Treatment Upcoming Encounters Date Type Department Care Team (Late st Contact Info) Description 12/05/2024 10:30 AM EDT Office Visit [facility] Multidisciplinary Oncology Clinic [address] [place] [address] Shannon Aguero, BARREL RIFLER [address] [facility] [address] [address] documented as of this encounter Visit Diagnoses Not on filedocumented in this encounter Additional Health Concerns Assessment Noted Time A fall risk assessment has been complete d for the patient 11/05/2023 9:22 AM EDT A Body Mass Index follow-up plan has been documented for the patient 12/13/2023 2:27 PM EDT documented as of this encounter Care Teams Midwife Relationship Specialty Start Date End Date Armani Campa MD [address] [place] [address] PCP - General 10/19/22 Kylee James APRN [address] [address] Nurse Practitioner Medical Oncology 03/30/23 Faustino Topete MD [address] [place] Rosemarie Cheung [address] [address] Consulting Physician Medical Oncology 12/01/23 documented as of this encounter
--- OUTSIDE RECORDS SUMMARY | 2024-11-17 10:49 | XMS_ITS | Clinical Summary ---
Author Organization [facility] Address [address] [place] [address] Care Team Providers Care Morning Babysitter Name Role Phone Armani Campa MD Primary Care Provider [phone] Kylee James APRN Unavailable [phone] Faustino Topete MD Unavailable [phone] Allergies No known active allergies Medications alendronate [...] day if needed (diarrhea). 11/27/19 24 Active potassium chloride CR (K-Tab) 20 MEQ ER tablet Take 1 tablet by mouth daily. 08/18/19 Active prochlorperazine (Compazine) 10 MG tablet Take 1 tablet by mouth every 6 hours as needed for nausea or vomiting. 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) 11/13/2024 Telephone [facility] [address] [place] [address] Faustino Topete MD 11/10/2024 2:00 PM EDT Office Visit [facility] [address] [place] [address] Faustino Topete MD 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); 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); Diarrhea, unspecified type 11/10/2024 Travel 11/09/2024 Travel 10/24/2024 Telephone [facility] [address] [place] [address] Faustino Topete MD 10/11/2024 Telephone [facility] [address] [place] [address] Faustino Topete MD from Last 3 Months Immunizations Immunization Administration Dates Next Due Influenza, high-dose, quadrivalent 03/11/2022 Joselo COVID-19 Vaccine (Blue Cap) 18+ 08/08/19 21 Moderna COVID-19 Vaccine (Parachute Packer) 12+ years Moderna COVID-19 Vaccine Bivalent 6months+ [...] place to sleep or slept in a snf (including now)? No 12/01/2023 CAGE ASSESSMENT Answer [...] drink first t volodymyr in the morning (EYE-GRADES 7 8 TUTOR) to steady your nerves or to get [...] F) 11/10/2024 2:11 PM EDT Respiratory Rate 19 12/13/2023 12:48 PM EDT Oxygen Saturation 95% 11/10/2024 2:11 PM EDT Inhaled Oxygen Concentration - - Weight 51.7 kg (114 lb) 11/10/2024 2:11 PM EDT Height 162.6 cm (5' 4 ) 11/10/2024 2:11 PM EDT Body Mass Index 19.57 11/10/2024 2:11 PM EDT Plan of Treatment Upcoming Encounters Date Type Department Care Team (Late st Contact Info) Description 12/05/2024 10:30 AM EDT Office Visit [facility] Multidisciplinary Oncology Clinic [address] [place] [address] Shannon Aguero, CABLE TOWER OPERATOR 800 [facility] [address] [place] [address] Health Maintenance Due Date Last Done Comments [facility]-Bone Density Scan 1943 [facility]-Depression Screening 1943 [facility]-Infant/Child/Adol SDOH Screenings 1943 [facility]-Hepatitis A Vaccines (1 of 2 - Risk 2-dose series) 1962 [facility]-Pneumococcal Vaccine: 50+ Years (1 of 2 - PCV) 1962 [facility]- SDOH Screenings 06/02/2024 [facility]-Adult SDOH Screenings 06/02/2024 12/01/2023 [id number]-82 Vaccine ( season) 2024 03/12/2024, 03/12/2023, 03/11/2022, Additional history exists [facility]-Medicare Annual Wellness (AWV) 02/14/2025 02/15/2024, 07/02/2022 [facility]-DTaP,Tdap,and [...] on patient's age to complete this topic Procedures Procedure Name Priority Date/Time Associated Diagnosis Comments MAGNESIUM, PLASMA Routine 11/10/2024 4:0 2 PM EDT 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) CHROMOGRANIN A Routine 11/10/2024 4:02 PM EDT 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) SEROTONIN, SERUM(SO) Routine 11/10/2024 4:02 PM EDT 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 ADDITIONAL INFORMATION The testing method is a homogeneous time-resolved immunofluorescent assay manufactured by [employer] and performed on the [employer] Kryptor Compact Plus. Values obtained with different [...] other findings. Test Performed by: [facility] [place] [address] Arc Welder: David Hawkins Ph.D.; CLIA# [id number] Blood Venous blood specimen / Unknown Venipuncture / Unknown 11/10/2024 4:02 PM EDT 11/10/2024 4:19 PM EDT us Faustino Topete MD LAB BLOOD ORDERABLES Final R esult [facility] ([facility]) * (ABNORMAL) CBC and differential (11/10/2024 4:02 [...] PM EDT 11/10/2024 4:27 PM EDT Narrative [facility] - 11/10/2024 5:55 PM EDT Therapeutic decision making should be based on absolute values, rather than percentages. Faustino Topete MD LAB BLOOD ORDERABLES Final R esult Performing Organization Address City/[facility]/ZIP Co de Phone Number [facility] [address] [place] [address] * (ABNORMAL) Serotonin, Serum (11/10/2024 4:02 PM EDT) SEROTONIN 1449(H) 50 - 220 ng/mL 11/13/2024 6:02 AM EDT [facility] ([place]) Serum Venous blood specimen / Unknown 11/10/2024 4:02 PM EDT 11/10/2024 4:18 PM EDT Narrative [facility] ([place]) - 11/13/2024 6:02 AM EDT TEST INFORMATION: Serotonin, Serum This test was developed and its performance characteristics determined by [facility]. It has not been cleared or approved by the US Food and Drug Administration. This test was performed in a CLIA certified laboratory and is intended for clinical purposes. Performed By: [facility] [address] [place] [id number] Deputy Director Of Nursing: Kurt Borges MD, PhD CLIA Number: [id number] Faustino Topete MD LAB BLOOD ORDERABLES Final R esult Performing Organization Address City/[facility]/ZIP Co de Phone Number [facility] ([place]) [address] [place] [address] * (ABNORMAL) Magnesium (11/10/2024 4:02 PM EDT) Pathologist [facility] Magnesium, Plasma 1.5(L) 1.9 - 2.4 mg/dL 11/10/2024 4:51 PM EDT [facility] Blood Venous blood specimen / Unknown Venipuncture / Unknown 11/10/2024 4:02 PM EDT 11/10/2024 4:18 PM EDT us Faustino Topete MD LAB BLOOD ORDERABLES Final R esult [facility] [address] [place] [address] * (ABNORMAL) Comprehensive metabolic panel (11/10/2024 4:02 PM EDT) [facility] Glucose, Plasma 92 74 - 99 mg/dL [...] esult [facility] [address] [place] [address] from Last 3 Months Insurance [facility] MEDICARE Advance Directives * DNR/DNI (Latest Code [...] Patient has decision-making capacity? Yes Care Teams Morning Babysitter Relationship Specialty Start Date End Date Armani Campa MD [address] [place] [address] PCP - General 10/19/22 Kylee James, CABLE TOWER OPERATOR [address] [place] Rose[address] Cheung [address] [address] Nurse Practitioner Medical Oncology 03/30/23 Faustino Topete MD [address] [place] [address] Cheung [address] [address] Consulting Physician Medical Oncology 12/01/23
--- OUTSIDE RECORDS SUMMARY | 2024-11-17 10:49 | XMS_ITS | Encounter Summary ---
Author Organization [facility] Address [address] [place] [address] Care Team Providers Care Drum Stenciler Name Role Phone Armani Campa MD Primary Care Provider [phone] Kylee James APRN Unavailable [phone] Faustino Topete MD Unavailable [phone] Encounter Details Date Type Department Care Team (Latest Contact Info) Description 11/10/2024 Travel Social History Tobacco Use Types Packs/Day [...] drink first t volodymyr in the morning (EYE-TRAVEL COORDINATOR) to steady your nerves or to get [...] Description 12/05/2024 10:30 AM EDT Office Visit [facility] Multidisciplinary Oncology Clinic [address] [place] [address] Shannon Aguero, PREPARATION SUPERVISOR FREEZING [address] [facility] [address] [place] [address] documented as of this encounter Visit Diagnoses Not on filedocumented in this encounter Additional Health Concerns Assessment Noted Time A fall risk assessment has been complete d for the patient 11/10/2024 2:13 PM EDT A Body Mass Index follow-up plan has been documented for the patient 12/13/2023 2:27 PM EDT documented as of this encounter Care Teams Drum Stenciler Relationship Specialty Start Date End Date Armani Campa MD [address] [place] [address] PCP - General 10/19/22 Kylee James APRN [address] [facility] [address] [place] [address] Nurse Practitioner Medical Oncology 03/30/23 Faustino Topete MD [address] [facility] [address] [place] [address] Consulting Physician Medical Oncology 12/01/23 documented as of this encounter
--- OUTSIDE RECORDS SUMMARY | 2024-11-17 10:49 | XMS_ITS | Encounter Summary ---
Author Organization [facility] Address [address] [place] [address] Care Team Providers Care Stereo Equipment Salesperson Name Role Phone Armani Campa MD Primary Care Provider [phone] Kylee James APRN Unavailable [phone] Faustino Topete MD Unavailable [phone] Encounter Details Date Type Department Care Team (Late st Contact Info) Description 10/11/2024 Telephone [facility] [address] [place] [address] Faustino Topete MD 800 [facility] [address] [place] [address] Social History Tobacco Use Types [...] drink first t volodymyr in the morning (EYE-RETENTION SPECIALIST) to steady your nerves or to get [...] optimal time of day to reach caller: [phone] Note: Please do not reply to this message. Follow-up communication and further actions as a result of this message need to be communicated with the patient directly, if the patient is not active onMyChart. If the patient is active on MyChart, they will receive notification of the communication/outcome via [employer]. documented in this encounter Plan of Treatment Upcoming Encounters Date Type Department Care Team (Late st Contact Info) Description 12/05/2024 10:30 AM EDT Office Visit [facility] Multidisciplinary Oncology Clinic [address] [place] [address] Shannon Aguero, STUDENT SUPPORT ADVISOR 800 [facility] [address] [address] documented as of this encounter Visit Diagnoses Not on filedocumented in this encounter Additional Health Concerns Assessment Noted Time A fall risk assessment has been complete d for the patient 11/05/2023 9:22 AM EDT A Body Mass Index follow-up plan has been documented for the patient 12/13/2023 2:27 PM EDT documented as of this encounter Care Teams Stereo Equipment Salesperson Relationship Specialty Start Date End Date Armani Campa MD [address] [place] [address] PCP - General 10/19/22 Kylee James APRN [address] [address] Nurse Practitioner Medical Oncology 03/30/23 Faustino Topete MD [address] [address] Consulting Physician Medical Oncology 12/01/23 documented as of this encounter
--- OUTSIDE RECORDS SUMMARY | 2024-11-17 10:49 | XMS_ITS | Encounter Summary ---
Author Organization [facility] Address [address] 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 0 12/02/2023 CAGE Questionnaire Score 0 024 Utilities Answer Date Recorded In the past 12 months has th e [employer], gas, oil, or water company threatened to [...] Description 12/05/2024 10:30 AM EDT Office Visit [facility] Multidisciplinary Oncology Clinic [address] [place] [address] Shannon Aguero, CHIEF LIBRARIAN BRANCH OR DEPARTMENT [address] [phone] documented as of this encounter Visit Diagnoses Diagnosis 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)- Primary documented in this encounter Additional Health Concerns Assessment Noted Time A fall risk assessment has been complete d for the patient 11/10/2024 2:13 PM EDT A Body Mass Index follow-up plan has been documented for the patient 12/13/2023 2:27 PM EDT documented as of this encounter Care Teams Product Development Manager Relationship Specialty Start Date End Date Armani Campa MD [address] [place] [address] PCP - General 10/19/22 Kylee James APRN [address] Cheung [address] [address] Nurse Practitioner Medical Oncology 03/30/23 Faustino Topete MD [address] [address] Consulting Physician Medical Oncology 12/01/23 documented as of this encounter
--- OUTSIDE RECORDS SUMMARY | 2024-11-17 10:49 | XMS_ITS | Encounter Summary ---
Author Organization [facility] Address [address] [place] [address] Care Team Providers Care Food Service Clerk Name Role Phone Armani Campa MD Primary Care Provider [phone] Kylee James APRN Unavailable [phone] Faustino Ruano MD Unavailable [phone] Encounter Details Date Type Department Care Team (Late st Contact Info) Description 11/13/2024 Telephone [facility] [address] [place] [address] Faustino Ruano MD 800 [facility] [address] [place] [address] Social History Tobacco Use Types [...] place to sleep or slept in a usp (including now)? No 12/01/2023 CAGE ASSESSMENT Answer [...] drink first t volodymyr in the morning (EYE-CLINICAL REVIEW NURSE) to steady your nerves or to get [...] encounter Miscellaneous Notes * Telephone Encounter - Jacquelin Tobias RN - 11/15/2024 4:48 PM EDT Msg was left IVF order sent in to [facility] and noted dr ruano's message on the serotonin level * Telephone Encounter - Leticia Bowen - 11/13/2024 12:18 PM EDT Melody not listed on pts preferred contacts, no answer from pt. * Telephone Encounter - Fransisca Jasso - 11/13/2024 11:39 AM EDT Patient Phone Message Reason for Call: Melody was worried about her serotonin level and IV fluids in her hometown [facility]- Can you Melody back? Best contact number and optimal time of day to reach caller: [phone] Note: Please do not reply to this message. Follow-up communication and further actions as a result of this message need to be communicated with the patient directly, if the patient is not active onMyChart. If the patient is active on MyChart, they will receive notification of the communication/outcome via My[employer]. documented in this encounter Plan of Treatment Upcoming Encounters Date Type Department Care Team (Late st Contact Info) Description 12/05/2024 10:30 AM EDT Office Visit [facility] Multidisciplinary Oncology Clinic [address] [place] [address] Shannon Aguero, SHERIE 800 [facility] Rosemarie Cheung [facility] [address] [place] [address] documented as of this encounter Visit Diagnoses Not on filedocumented in this encounter Additional Health Concerns Assessment Noted Time A fall risk assessment has been complete d for the patient 11/10/2024 2:13 PM EDT A Body Mass Index follow-up plan has been documented for the patient 12/13/2023 2:27 PM EDT documented as of this encounter Care Teams Food Service Clerk Relationship Specialty Start Date End Date Armani Campa MD [address] [place] [address] PCP - General 10/19/22 Kylee James APRN [address] Rosemarie Cheung [address] [address] Nurse Practitioner Medical Oncology 03/30/23 Faustino Ruano MD [address] Rosemarie Cheung [address] [address] Consulting Physician Medical Oncology 12/01/23 documented as of this encounter
[2024-11-17 10:58] VITALS: BP 127/76; PULSE 75; RESP 18; O2SAT 95
[2024-11-17 12:15] VITALS: BP 150/80; PULSE 76; RESP 18; O2SAT 97
== END 2024-11-17 12:15 | disposition home or self-care (01) ==
LOC: INF 10:48
PROVIDERS: PCP Family Medicine; Visit Provider Internal Medicine Hematology & Oncology
DX: E86.0 Dehydration (principal)
CPT/HCPCS: 96360

== ENCOUNTER 2024-11-24 09:59 | Outpatient (CLI) | payer MEDICARE, SELFPAY ==
--- OUTSIDE RECORDS SUMMARY | 2024-11-10 14:00 | XMS_ITS | Encounter Summary ---
Author Organization [facility] Address [address] 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 No 12/01/2023 CAGE ASSESSMENT Answer [...] drink first t volodymyr in the morning (EYE-PEANUT PICKER) to steady your nerves or to get rid of a hangover? 0 12/02/2023 CAGE Questionnaire Score 0 024 Utilities Answer Date Recorded In the past 12 months has th e [employer], gas, oil, or water company threatened to [...] had. Currently in hospice. 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 She has been having intermittent, non-frequent episodes [...] file Social Connections: Unknown (03/08/2023) Received from [facility] Family and Community Support Help with Day-to-Day [...] will contact us. I spent 30 minutes bons-ez-pzph with the patient and gjb-mnmu-oj-face time, over half in discussionof the diagnosis and the importance of compliance with the treatment plan. Faustino Topete MD, FACP [facility] [address] [facility], [address] [place] [address] documented in this encounter Plan of Treatment Upcoming Encounters Date Type Department Care Team ([facility] st Contact Info) Description 12/05/2024 10:30 AM EDT Office Visit [facility] Multidisciplinary Oncology Clinic [address] [place] [address] Shannon Aguero, BRAKE HOLDER [address] [place] [address] documented as of this encounter Procedures Procedure [...] - 2.4 mg/dL 11/10/2024 4:51 PM EDT [facility] Blood Venous blood specimen / Unknown Venipuncture / Unknown 11/10/2024 4:02 PM EDT 11/10/2024 4:18 PM EDT us Fasutino Topete MD LAB BLOOD ORDERABLES Final R esult [facility] [address] [place] [address] * (ABNORMAL) 5-HIAA, Plasma (11/10/2024 4:02 PM EDT) Pathologist [facility] Fasting greater than or equal to 8 hours? Yes 11/23/2024 4:20 PM EDT [facility] 5-Hydroxyindole acetic Acid (HIAA), Plasma 58(H) <=22 ng/ml 11/23/2024 4:20 PM EDT [facility] ([facility]) Blood Venous blood specimen / Unknown Venipuncture / Unknown 11/10/2024 4:02 PM EDT 11/10/2024 4:12 PM EDT Narrative [facility] ([facility]) - 11/23/2024 4:20 PM EDT This GCMS assay was developed and its performance characteristics determined by [facility]. It has not been cleared or approved by the FDA and such approval or clearance is not required at this time. Values obtained with different methods, different laboratories or with kits cannot be used interchangeably with the results on this report. The results cannot be interpreted as absolute evidence of the presence or absence of malignant disease. Performed By: [facility] [address] [place] [address]<lb> us Faustino Topete MD LAB BLOOD ORDERABLES Final R esult [facility] ([facility]) [facility] [address] [place] [address] * (ABNORMAL) Chromogranin A (11/10/2024 4:02 PM EDT) [facility] CHROMOGRANIN A 1622(H) <93 ng/mL 11/14/2024 6:56 PM EDT [facility] ([facility]) Comment: Impaired renal or hepatic function or treatment with proton pump inhibitors may result in artifactual elevations of Chromogranin A. ADDITIONAL INFORMATION The testing method is a homogeneous time-resolved immunofluorescent assay manufactured by [employer] and performed on the [employer] Kryptor Compact Plus. Values obtained with different [...] examination and other findings. Test Performed by: [facility] [address] [place] [address] [employer] Specialists: David Hawkins Ph.D.; CLIA# [id number] Blood Venous blood specimen / Unknown Venipuncture / Unknown 11/10/2024 4:02 PM EDT 11/10/2024 4:19 PM EDT Faustino Topete MD LAB BLOOD ORDERABLES Final R esult Performing Organization Address [facility] Co de Phone Number [facility]) * (ABNORMAL) Serotonin, Serum (11/10/2024 4:02 PM EDT) SEROTONIN 1449(H) 50 - 220 ng/mL 11/13/2024 6:02 AM EDT [facility] ([facility]) Serum Venous blood specimen / Unknown 11/10/2024 4:02 PM EDT 11/10/2024 4:18 PM EDT Narrative [facility]) - 11/13/2024 6:02 AM EDT TEST INFORMATION: Serotonin, Serum This test was developed and its performance characteristics determined by [facility]. It has not been cleared or approved by the US Food and Drug Administration. This test was performed in a CLIA certified laboratory and is intended for clinical purposes. Performed By: [facility] [address] [place] [address] [employer] Executive: Kurt Borges MD, PhD CLIA Number: [id number] Faustino Topete MD LAB BLOOD ORDERABLES Final R esult Performing Organization Address [facility] Co de Phone Number [facility] [email or web address]) [address] [place] [address] * (ABNORMAL) Comprehensive metabolic panel (11/10/2024 4:02 PM EDT) [facility] Glucose, Plasma 92 74 - 99 mg/dL 11/10/2024 4:51 PM EDT [facility] BUN, Plasma 14 8 - 23 mg/dL 11/10/2024 4:51 PM EDT [facility] Creatinine, Plasma 0.57(L) 0.60 - 1.10 mg/dL 11/10/2024 4:51 PM EDT [facility] BUN/Creatinine Ratio 25 11/10/2024 4:51 PM EDT [facility] Sodium, Plasma 141 136 - 145 mmol/L 11/10/2024 4:51 PM EDT [facility] Potassium, Plasma 3.4(L) 3.6 - 4.9 mmol/L 11/10/2024 4:51 PM EDT [facility] Chloride, Plasma 106 97 - 107 mmol/L 11/10/2024 4:51 PM EDT [facility] CO2, Plasma 21(L) 22 - 29 mmol/L 11/10/2024 4:51 PM EDT [facility] Anion Gap 14 6 - 16 mmol/L 11/10/2024 4:51 PM EDT [facility] Total Calcium, Plasma 8.6(L) 8.9 - 10.2 mg/dL 11/10/2024 4:51 PM EDT [facility] Total Protein 7.4 6.3 - 7.9 g/dL 11/10/2024 4:51 PM EDT [facility] Albumin, Plasma 3.8 3.5 - 5.2 g/dL 11/10/2024 4:51 PM EDT [facility] AST, Plasma 36(H) 10 - 35 U/L 11/10/2024 4:51 PM EDT [facility] ALT, Plasma 20 10 - 35 U/L 11/10/2024 4:51 PM EDT [facility] Alkaline Phosphatase, Plasma 98 46 - 142 U/L 11/10/2024 4:51 PM EDT [facility] Total Bilirubin, Plasma 0.3 0.2 - 1.1 mg/dL 11/10/2024 4:51 PM EDT [facility] eGFRcr 91.4 mL/min/1.7 3m*2 11/10/2024 4:51 PM EDT [facility] Comment:Reported eGFRcr in m L/min/1.73m2 is based the CKD-EPI 2020 equation that does not use a race coefficient. Blood Venous blood specimen / Unknown Venipuncture / Unknown 11/10/2024 4:02 PM EDT 11/10/2024 4:18 PM EDT us Faustino Topete MD LAB BLOOD ORDERABLES Final R esult [facility] [address] [place] [address] * (ABNORMAL) CBC and differential (11/10/2024 4:02 PM EDT) WBC Count 6.30 3.70 - 10.30 10*3/uL LAB HEMATOLOGY METHOD 11/10/2024 5:55 PM EDT [facility] RBC Count 4.67 3.90 - 5.20 10*6/uL LAB HEMATOLOGY METHOD 11/10/2024 5:55 PM EDT [facility] HGB 11.7 11.2 - 15.7 g/dL LAB HEMATOLOGY METHOD 11/10/2024 5:55 PM EDT [facility] HCT 37.8 34.0 - 45.0 % LAB HEMATOLOGY METHOD 11/10/2024 5:55 PM EDT [facility] Platelet Count 138(L) 155 - 369 10*3/uL LAB HEMATOLOGY METHOD 11/10/2024 5:55 PM EDT [facility] MCV 81 79 - 98 fL LAB HEMATOLOGY METHOD 11/10/2024 5:55 PM EDT [facility] MCH 25.1(L) 26.0 - 32.0 pg LAB HEMATOLOGY METHOD 11/10/2024 5:55 PM EDT [facility] MCHC 31.0 30.7 - 35.5 g/dL LAB HEMATOLOGY METHOD 11/10/2024 5:55 PM EDT [facility] RDW 16.1(H) 11.5 - 14.5 % LAB HEMATOLOGY METHOD 11/10/2024 5:55 PM EDT [facility] MPV LAB HEMATOLOGY METHOD 11/10/2024 5:55 PM EDT [facility] Comment:Not Measured nRBC 0.0 <=0.0 per 100 WBCs LAB HEMATOLOGY METHOD 11/10/2024 5:55 PM EDT [facility] Differential Type Automated LAB HEMATOLOGY METHOD 11/10/2024 5:55 PM EDT [facility] Neutrophils % 75 % LAB HEMATOLOGY METHOD 11/10/2024 5:55 PM EDT [facility] Lymphocytes % 15 % LAB HEMATOLOGY METHOD 11/10/2024 5:55 PM EDT [facility] Monocytes % 9 % LAB HEMATOLOGY METHOD 11/10/2024 5:55 PM EDT [facility] Eosinophils % 1 % LAB HEMATOLOGY METHOD 11/10/2024 5:55 PM EDT [facility] Basophils % 0 % LAB HEMATOLOGY METHOD 11/10/2024 5:55 PM EDT [facility] Immature Granulocytes % 0 % LAB HEMATOLOGY METHOD 11/10/2024 5:55 PM EDT [facility] Neutrophils Absolute 4.69 1.60 - 6.10 10*3/uL LAB HEMATOLOGY METHOD 11/10/2024 5:55 PM EDT [facility] Lymphocytes Absolute 0.95(L) 1.20 - 3.90 10*3/uL LAB HEMATOLOGY METHOD 11/10/2024 5:55 PM EDT [facility] Monocytes Absolute 0.54 0.30 - 0.90 10*3/uL LAB HEMATOLOGY METHOD 11/10/2024 5:55 PM EDT [facility] Eosinophils Absolute 0.08 0.00 - 0.50 10*3/uL LAB HEMATOLOGY METHOD 11/10/2024 5:55 PM EDT [facility] Basophils Absolute 0.02 0.00 - 0.10 10*3/uL LAB HEMATOLOGY METHOD 11/10/2024 5:55 PM EDT [facility] Immature Granulocytes Absolute 0.02 0.00 - 0.06 10*3/uL LAB HEMATOLOGY METHOD 11/10/2024 5:55 PM EDT [facility] Blood Venous blood specimen / Unknown Venipuncture / Unknown 11/10/2024 4:02 PM EDT 11/10/2024 4:27 PM EDT Narrative [facility] - 11/10/2024 5:55 PM EDT Therapeutic decision making should be based on absolute values, rather than percentages. Faustino Topete MD LAB BLOOD ORDERABLES Final R esult [facility] [address] [place] [address] documented in this encounter Visit Diagnoses Diagnosis [...] documented as of this encounter Care Teams Plastic Battery Assembler Relationship Specialty Start Date End Date Armani Campa MD [address] [place] [address] PCP - General 10/19/22 Kylee James APRN [address] [address] Nurse Practitioner Medical Oncology 03/30/23 Faustnio Topete MD [address] [facility] [address] [place] [address] Consulting Physician Medical Oncology 12/01/23 documented as of this encounter
--- OUTSIDE RECORDS SUMMARY | 2024-11-24 10:01 | XMS_ITS | Encounter Summary ---
Author Organization [facility] Address [address] [place] [address] Care Team Providers Care Environmental Engineering Aide Name Role Phone Armani Campa MD Primary Care Provider [phone] Kylee James APRN Unavailable [phone] Faustino Topete MD Unavailable [phone] Encounter Details Date Type Department Care Team (Late st Contact Info) Description 10/11/2024 Telephone [facility] [address] [place] [address] Faustino Topete MD [address] [facility] [address] [place] [address] Social History Tobacco Use Types [...] drink first t volodymyr in the morning (EYE-TYPE CASTER) to steady your nerves or to get [...] optimal time of day to reach caller: [phone] Note: Please do not reply to this message. Follow-up communication and further actions as a result of this message need to be communicated with the patient directly, if the patient is not active onMyChart. If the patient is active on MyChart, they will receive notification of the communication/outcome via [employer]. documented in this encounter Plan of Treatment Upcoming Encounters Date Type Department Care Team (Late st Contact Info) Description 12/05/2024 10:30 AM EDT Office Visit [facility] Multidisciplinary Oncology Clinic [address] [place] [address] Shannon Aguero, AUTOMATION QA ANALYST 800 [facility] [address] [address] documented as of this encounter Visit Diagnoses Not on filedocumented in this encounter Additional Health Concerns Assessment Noted Time A fall risk assessment has been complete d for the patient 11/05/2023 9:22 AM EDT A Body Mass Index follow-up plan has been documented for the patient 12/13/2023 2:27 PM EDT documented as of this encounter Care Teams Environmental Engineering Aide Relationship Specialty Start Date End Date Armani Campa MD [address] [place] [address] PCP - General 10/19/22 Kylee James APRN [address] [address] Nurse Practitioner Medical Oncology 03/30/23 Faustino Topete MD [address] [address] Consulting Physician Medical Oncology 12/01/23 documented as of this encounter
--- OUTSIDE RECORDS SUMMARY | 2024-11-24 10:01 | XMS_ITS | Encounter Summary ---
Author Organization [facility] Address [address] [place] [address] Care Team Providers Care Hand Tube Bender Name Role Phone Armani Campa MD Primary Care Provider [phone] Kylee James APRN Unavailable [phone] Faustino Topete MD Unavailable [phone] Reason for Visit * Reason Onset Date Comments new start 11/21/2024 Encounter Details Date Type Department Care Team (Late st Contact Info) Description 11/21/2024 Telephone [facility] [address] [place] [address] Noble Burrell, PharmD new Social History Tobacco Use Types Packs/Day Years [...] drink first t volodymyr in the morning (EYE-VISITOR SERVICES REPRESENTATIVE) to steady your nerves or to get [...] Description 12/05/2024 10:30 AM EDT Office Visit [facility] Multidisciplinary Oncology Clinic [address] [place] [address] Shannon Aguero, BRICK MACHINE OPERATOR [address] [facility] [address] [place] [address] documented as of this encounter Visit Diagnoses Not on filedocumented in this encounter Additional Health Concerns Assessment Noted Time A fall risk assessment has been complete d for the patient 11/10/2024 2:13 PM EDT A Body Mass Index follow-up plan has been documented for the patient 12/13/2023 2:27 PM EDT documented as of this encounter Care Teams Hand Tube Bender Relationship Specialty Start Date End Date Armani Campa MD [address] [place] [address] PCP - General 10/19/22 Kylee James APRN [address] [address] Nurse Practitioner Medical Oncology 03/30/23 Faustino Topete MD [address] [address] Consulting Physician Medical Oncology 12/01/23 documented as of this encounter
--- OUTSIDE RECORDS SUMMARY | 2024-11-24 10:01 | XMS_ITS | Clinical Summary ---
Author Organization [facility] Address [address] [place] [address] Care Team Providers Care Blanchard Grinder Operator Name Role Phone Armani Campa MD Primary Care Provider [phone] Kylee James APRN Unavailable [phone] Faustino Topete MD Unavailable [phone] Allergies No known active allergies Medications alendronate [...] needed for diarrhea. 120 tablet 3 11/05/19 Active meloxicam (Mobic) 15 MG tablet Take 1 tablet (15 mg) by mouth Q AM PRN for mild pain. 11/27/19 Active potassium chloride CR (K-Tab) 20 MEQ ER tablet Take 1 tablet by mouth daily. 08/18/19 Active prochlorperazine (Compazine) 10 MG tablet Take 1 tablet by mouth every 6 hours as needed for nausea or vomiting. 12/14/19 24 Active octreotide (SandoSTATIN) 1000 MCG/ML injectionIndicatio ns:Malignant neuroendocrine neoplasm (CMS/HCC) Inject 0.2 mL under the skin 3 times a day as needed (diarrhea). 90 mL 5 11/22/19 25 Active octreotide (SandoSTATIN) 1000 MCG/ML injectionIndicatio ns:Malignant neuroendocrine neoplasm (CMS/HCC) Inject 0.2 mL (200 mcg) under the skin 3 (three) times a day if needed (diarrhea). 11/27/19 025 Discontin ued(Reord er) Active Problems Problem Noted Date Diagnosed Date [...] Diagnosed Date Resolved Date Small bowel obstruction 11/19/202310/30 Encounters Date Type Department Care Team Description 11/21/2024 Telephone [facility] [address] [place] [address] Noble Burrell, PharmD new start 11/21/2024 Refill [facility] [address] [place] [address] Faustino Topete MD Malignant neuroendocrine neoplasm (CMS/HCC) 11/15/2024 Orders Only [facility] [address] [place] [address] Faustino Topete MD 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) 11/13/2024 Telephone [facility] [address] [place] [address] Faustino Topete MD 11/10/2024 2:00 PM EDT Office Visit [facility] [address] [place] [address] Faustino Topete MD 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); 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); Diarrhea, unspecified type 11/10/2024 Travel 11/09/2024 Travel 10/24/2024 Telephone [facility] [address] [place] [address] Faustino Topete MD 10/11/2024 Telephone [facility] [address] [place] [address] Faustino Topete MD from Last 3 Months Immunizations Immunization Administration Dates Next Due Influenza, high-dose, quadrivalent 03/11/2022 Joselo COVID-19 Vaccine (Blue Cap) 18+ 08/08/19 21 Moderna COVID-19 Vaccine (Brake Operator) 12+ years Moderna COVID-19 Vaccine Bivalent 6months+ [...] place to sleep or slept in a senior living (including now)? No 12/01/2023 CAGE ASSESSMENT Answer [...] drink first t volodymyr in the morning (EYE-BUILD AND DEPLOYMENT ENGINEER) to steady your nerves or to get [...] 10:30 AM EDT Office Visit [facility] [address] [place] [address] Shannon Aguero, SHOE CUTTER 800 [facility] [address] [place] [address] Health Maintenance Due Date Last Done Comments [facility]-Bone Density Scan 1943 [facility]-Depression Screening 1943 [facility]-/Child/Adol SDOH Screenings 1943 [facility]-Hepatitis A Vaccines (1 of 2 - Risk 2-dose series) 1962 [facility]-Pneumococcal Vaccine: 50+ Years (1 of 2 - PCV) 1962 [facility]- SDOH Screenings 06/02/2024 [facility]-Adult SDOH Screenings 06/02/2024 12/01/2023 [id number] Vaccine (6 - season) 2024 03/12/2024, 03/12/2023, 03/11/2022, Additional history [...] 1622(H) <93 ng/mL 11/14/2024 6:56 PM EDT [facility] ([facility]) Comment: Impaired renal or hepatic function or treatment with proton pump inhibitors may result in artifactual elevations of Chromogranin A. ADDITIONAL INFORMATION The testing method is a homogeneous time-resolved immunofluorescent assay manufactured by [employer] and performed on the [employer] Kryptor Compact Plus. Values obtained with different [...] examination and other findings. Test Performed by: [place] [address] Director Of Materials: David Hawkins Ph.D.; CLIA# [id number] Blood Venous blood specimen / Unknown Venipuncture / Unknown 11/10/2024 4:02 PM EDT 11/10/2024 4:19 PM EDT us Faustino Topete MD LAB BLOOD ORDERABLES Final R esult [facility] ([facility]) * (ABNORMAL) 5-HIAA, Plasma (11/10/2024 4:02 PM EDT) Fasting greater than or equal to 8 hours? Yes 11/23/2024 4:20 PM EDT [facility] 5-Hydroxyindole acetic Acid (HIAA), Plasma 58(H) <=22 ng/ml 11/23/2024 4:20 PM EDT [facility] ([facility]) Blood Venous blood specimen / Unknown Venipuncture / Unknown 11/10/2024 4:02 PM EDT 11/10/2024 4:12 PM EDT Narrative [facility] ([facility]) - 11/23/2024 4:20 PM EDT This GCMS assay was developed and its performance characteristics determined by [employer]. It has not been cleared or approved by the FDA and such approval or clearance is not required at this time. Values obtained with different methods, different laboratories or with kits cannot be used interchangeably with the results on this report. The results cannot be interpreted as absolute evidence of the presence or absence of malignant disease. Performed By: [employer] [facility] [address] [place] [address]<lb> us Faustino Topete MD LAB BLOOD ORDERABLES Final R esult [facility] ([facility]) [facility] [address] [place] [address] * (ABNORMAL) CBC and differential (11/10/2024 4:02 PM EDT) Pathologist [facility] WBC Count 6.30 3.70 - 10.30 10*3/uL LAB HEMATOLOGY METHOD 11/10/2024 5:55 PM EDT [facility] RBC Count 4.67 3.90 - 5.20 10*6/uL LAB HEMATOLOGY METHOD 11/10/2024 5:55 PM EDT [facility] HGB 11.7 11.2 - 15.7 g/dL LAB HEMATOLOGY METHOD 11/10/2024 5:55 PM EDT [facility] HCT 37.8 34.0 - 45.0 % LAB HEMATOLOGY METHOD 11/10/2024 5:55 PM EDT [facility] Platelet Count 138(L) 155 - 369 10*3/uL LAB HEMATOLOGY METHOD 11/10/2024 5:55 PM EDT [facility] MCV 81 79 - 98 fL LAB HEMATOLOGY METHOD 11/10/2024 5:55 PM EDT [facility] MCH 25.1(L) 26.0 - 32.0 pg LAB HEMATOLOGY METHOD 11/10/2024 5:55 PM EDT [facility] MCHC 31.0 30.7 - 35.5 g/dL LAB HEMATOLOGY METHOD 11/10/2024 5:55 PM EDT [facility] RDW 16.1(H) 11.5 - 14.5 % LAB HEMATOLOGY METHOD 11/10/2024 5:55 PM EDT [facility] MPV LAB HEMATOLOGY METHOD 11/10/2024 5:55 PM EDT [facility] Comment:Not Measured nRBC 0.0 <=0.0 per 100 WBCs LAB HEMATOLOGY METHOD 11/10/2024 5:55 PM EDT [facility] Differential Type Automated LAB HEMATOLOGY METHOD 11/10/2024 5:55 PM EDT [facility] Neutrophils % 75 % LAB HEMATOLOGY METHOD 11/10/2024 5:55 PM EDT [facility] Lymphocytes % 15 % LAB HEMATOLOGY METHOD 11/10/2024 5:55 PM EDT [facility] Monocytes % 9 % LAB HEMATOLOGY METHOD 11/10/2024 5:55 PM EDT [facility] Eosinophils % 1 % LAB HEMATOLOGY METHOD 11/10/2024 5:55 PM EDT [facility] Basophils % 0 % LAB HEMATOLOGY METHOD 11/10/2024 5:55 PM EDT [facility] Immature Granulocytes % 0 % LAB HEMATOLOGY METHOD 11/10/2024 5:55 PM EDT [facility] Neutrophils Absolute 4.69 1.60 - 6.10 10*3/uL LAB HEMATOLOGY METHOD 11/10/2024 5:55 PM EDT [facility] Lymphocytes Absolute 0.95(L) 1.20 - 3.90 10*3/uL LAB HEMATOLOGY METHOD 11/10/2024 5:55 PM EDT [facility] Monocytes Absolute 0.54 0.30 - 0.90 10*3/uL LAB HEMATOLOGY METHOD 11/10/2024 5:55 PM EDT [facility] Eosinophils Absolute 0.08 0.00 - 0.50 10*3/uL LAB HEMATOLOGY METHOD 11/10/2024 5:55 PM EDT [facility] Basophils Absolute 0.02 0.00 - 0.10 10*3/uL LAB HEMATOLOGY METHOD 11/10/2024 5:55 PM EDT [facility] Immature Granulocytes Absolute 0.02 0.00 - 0.06 10*3/uL LAB HEMATOLOGY METHOD 11/10/2024 5:55 PM EDT [facility] Blood Venous blood specimen / Unknown Venipuncture / Unknown 11/10/2024 4:02 PM EDT 11/10/2024 4:27 PM EDT Narrative [facility] - 11/10/2024 5:55 PM EDT Therapeutic decision making should be based on absolute values, rather than percentages. Faustino Topete MD LAB BLOOD ORDERABLES Final R esult Performing Organization Address City/State/[facility] Co de Phone Number [facility] [address] [place] [address] * (ABNORMAL) Serotonin, Serum (11/10/2024 4:02 PM EDT) SEROTONIN 1449(H) 50 - 220 ng/mL 11/13/2024 6:02 AM EDT [facility] ([facility] Serum Venous blood specimen / Unknown 11/10/2024 4:02 PM EDT 11/10/2024 4:18 PM EDT Narrative [facility] ([facility]) - 11/13/2024 6:02 AM EDT TEST INFORMATION: Serotonin, Serum This test was developed and its performance characteristics determined by [employer]. It has not been cleared or approved by the [place] Food and Drug Administration. This test was performed in a CLIA certified laboratory and is intended for clinical purposes. Performed By: [facility] [address] [place] [id number] Protective Clothing Issuer: Kurt Borges MD, PhD CLIA Number: [id number] Faustino Topete MD LAB BLOOD ORDERABLES Final R esult [facility] ([facility]) [address] [place] [address] * (ABNORMAL) Magnesium (11/10/2024 4:02 PM EDT) Magnesium, Plasma 1.5(L) 1.9 - 2.4 mg/dL 11/10/2024 4:51 PM EDT [facility] Blood Venous blood specimen / Unknown Venipuncture / Unknown 11/10/2024 4:02 PM EDT 11/10/2024 4:18 PM EDT Faustino Topete MD LAB BLOOD ORDERABLES [facility] [address] [place] [address] * (ABNORMAL) Comprehensive metabolic panel (11/10/2024 4:02 PM EDT) Pathologist [facility] Glucose, Plasma 92 74 - 99 mg/dL 11/10/2024 4:51 PM EDT [facility] BUN, Plasma 14 8 - 23 mg/dL 11/10/2024 4:51 PM EDT [facility] Creatinine, Plasma 0.57(L) 0.60 - 1.10 mg/dL 11/10/2024 4:51 PM EDT [facility] BUN/Creatinine Ratio 25 11/10/2024 4:51 PM EDT [facility] Sodium, Plasma 141 136 - 145 mmol/L 11/10/2024 4:51 PM EDT [facility] Potassium, Plasma 3.4(L) 3.6 - 4.9 mmol/L 11/10/2024 4:51 PM EDT [facility] Chloride, Plasma 106 97 - 107 mmol/L 11/10/2024 4:51 PM EDT [facility] CO2, Plasma 21(L) 22 - 29 mmol/L 11/10/2024 4:51 PM EDT [facility] Anion Gap 14 6 - 16 mmol/L 11/10/2024 4:51 PM EDT [facility] Total Calcium, Plasma 8.6(L) 8.9 - 10.2 mg/dL 11/10/2024 4:51 PM EDT [facility] Total Protein 7.4 6.3 - 7.9 g/dL 11/10/2024 4:51 PM EDT [facility] Albumin, Plasma 3.8 3.5 - 5.2 g/dL 11/10/2024 4:51 PM EDT [facility] AST, Plasma 36(H) 10 - 35 U/L 11/10/2024 4:51 PM EDT [facility] ALT, Plasma 20 10 - 35 U/L 11/10/2024 4:51 PM EDT [facility] Alkaline Phosphatase, Plasma 98 46 - 142 U/L 11/10/2024 4:51 PM EDT [facility] Total Bilirubin, Plasma 0.3 0.2 - 1.1 mg/dL 11/10/2024 4:51 PM EDT [facility] eGFRcr 91.4 mL/min/1.7 3m*2 11/10/2024 4:51 PM EDT [facility] Comment:Reported eGFRcr in m L/min/1.73m2 is based the CKD-EPI 2020 equation that does not use a race coefficient. Blood Venous blood specimen / Unknown Venipuncture / Unknown 11/10/2024 4:02 PM EDT 11/10/2024 4:18 PM EDT us Faustino Topete MD LAB BLOOD ORDERABLES Final R esult [facility] [address] [place] [address] from Last 3 Months Insurance [employer] MEDIC[employer] Advance Directives * DNR/DNI [...] Patient has decision-making capacity? Yes Care Teams Blanchard Grinder Operator Relationship Specialty Start Date End Date Armani Campa MD [address] [place] [address] PCP - General 10/19/22 Kylee James APRN [address] [place] [address] [place] [address] Nurse Practitioner Medical Oncology 03/30/23 Faustino Topete MD [address] [place] [address] Consulting Physician Medical Oncology 12/01/23
--- OUTSIDE RECORDS SUMMARY | 2024-11-24 10:01 | XMS_ITS ---
Author Organization [facility] Address [address] [place] [address] Care Team Providers Care Physician Non Invasive Cardiologist Name Role Phone Armani Campa MD Primary Care Provider [phone] Kylee James APRN Unavailable [phone] Faustino Topete MD Unavailable [phone] Active Problems Problem Noted Date Diagnosed Date [...]
--- OUTSIDE RECORDS SUMMARY | 2024-11-24 10:01 | XMS_ITS | Encounter Summary ---
Author Organization [facility] Address [address] [place] [address] Care Team Providers Care Electrophonic Engineer Name Role Phone Armani Campa MD Primary Care Provider [phone] Kylee James YOUTH TEACHER Unavailable [phone] Faustino Topete MD Unavailable [phone] Reason for Visit * Reason Onset Date Comments Med Refill 11/21/2024 Encounter Details Date Type Department Care Team (Late st Contact Info) Description 11/21/2024 Refill [facility] [address] [place] [address] Faustino Topete MD [address] [address] Malignant neuroendocrine neoplasm (CMS/HCC) Social History Tobacco Use Types Packs/Day Years [...] place to sleep or slept in a nursing home (including now)? No 12/01/2023 CAGE ASSESSMENT [...] drink first t volodymyr in the morning (EYE-DRAMATIC CRITIC) to steady your nerves or to get [...] Description 12/05/2024 10:30 AM EDT Office Visit [facility] Multidisciplinary Oncology Clinic [address] [place] [address] Shannon Aguero, YOUTH TEACHER [address] [address] documented as of this encounter Visit Diagnoses Diagnosis Malignant neuroendocrine neoplasm (CMS/HCC) documented in this encounter Additional Health Concerns Assessment Noted Time A fall risk assessment has been complete d for the patient 11/10/2024 2:13 PM EDT A Body Mass Index follow-up plan has been documented for the patient 12/13/2023 2:27 PM EDT documented as of this encounter Care Teams Electrophonic Engineer Relationship Specialty Start Date End Date Armani Campa MD [address] [place] [address] PCP - General 10/19/22 Kylee James APRN [address] [address] Nurse Practitioner Medical Oncology 03/30/23 Faustino Topete MD [address] [address] Consulting Physician Medical Oncology 12/01/23 documented as of this encounter
--- OUTSIDE RECORDS SUMMARY | 2024-11-24 10:01 | XMS_ITS | Encounter Summary ---
Author Organization [facility] Address [address] [place] [address] Care Team Providers Care District Administrator Name Role Phone Armani Campa MD Primary Care Provider [phone] Kylee James APRN Unavailable [phone] Faustino Topete MD Unavailable [phone] Encounter Details Date Type Department Care Team (Late st Contact Info) Description 10/24/2024 Telephone [facility] [address] [place] [address] Faustino Topete MD 800 [facility] [address] [place] [address] Social History Tobacco Use Types [...] drink first t volodymyr in the morning (EYE-DATA MANAGEMENT ASSOCIATE) to steady your nerves or to get [...] and optimal time of day to reach caller:[phone] Note: Please do not reply to this message. Follow-up communication and further actions as a result of this message need to be communicated with the patient directly, if the patient is not active onMyChart. If the patient is active on MyChart, they will receive notification of the communication/outcome via [employer]. documented in this encounter Plan of Treatment Upcoming Encounters Date Type Department Care Team (Late st Contact Info) Description 12/05/2024 10:30 AM EDT Office Visit [facility] Multidisciplinary Oncology Clinic [address] [place] [address] Shannon Aguero, FOOD SERVICES DIRECTOR 800 [facility] [address] [address] documented as of this encounter Visit Diagnoses Not on filedocumented in this encounter Additional Health Concerns Assessment Noted Time A fall risk assessment has been complete d for the patient 11/05/2023 9:22 AM EDT A Body Mass Index follow-up plan has been documented for the patient 12/13/2023 2:27 PM EDT documented as of this encounter Care Teams District Administrator Relationship Specialty Start Date End Date Armani Campa MD [address] [place] [address] PCP - General 10/19/22 Kylee James APRN [address] [address] Nurse Practitioner Medical Oncology 03/30/23 Faustino Topete MD [address] [address] Consulting Physician Medical Oncology 12/01/23 documented as of this encounter
--- OUTSIDE RECORDS SUMMARY | 2024-11-24 10:01 | XMS_ITS | Encounter Summary ---
Author Organization [facility] Address [address] [place] [address] Care Team Providers Care Global Account Manager Name Role Phone Armani Campa MD Primary Care Provider [phone] Kylee James APRN Unavailable [phone] Faustino Topete MD Unavailable [phone] Encounter Details Date Type Department Care Team [...] place to sleep or slept in a alf (including now)? No 12/01/2023 CAGE ASSESSMENT Answer [...] drink first t volodymyr in the morning (EYE-REPORTING COORDINATOR) to steady your nerves or to [...] 10:30 AM EDT Office Visit [facility] On[facility] Clinic [address] [place] [address] Shannon Aguero, QUARTER SEAMER [address] [facility] [address] [place] [address] documented as of this encounter Visit Diagnoses Not on filedocumented in this encounter Additional Health Concerns Assessment Noted Time A fall risk assessment has been complete d for the patient 11/05/2023 9:22 AM EDT A Body Mass Index follow-up plan has been documented for the patient 12/13/2023 2:27 PM EDT documented as of this encounter Care Teams Global Account Manager Relationship Specialty Start Date End Date Armani Campa MD [address] [place] [address] PCP - General 10/19/22 Kylee James APRN [address] [facility] [address] [place] [address] Nurse Practitioner Medical Oncology 03/30/23 Faustino Topete MD [address] [facility] [address] [place] [address] Consulting Physician Medical Oncology 12/01/23 documented as of this encounter
--- OUTSIDE RECORDS SUMMARY | 2024-11-24 10:01 | XMS_ITS | Encounter Summary ---
Author Organization [facility] Address [address] [place] [address] Care Team Providers Care Electro Optics Engineer Name Role Phone Armani Campa MD Primary Care Provider Kylee James LADIES LOCKER ROOM ATTENDANT Unavailable [phone] Faustino Topete MD Unavailable [phone] Encounter Details Date Type Department Care Team (Late st Contact Info) Description 11/15/2024 Orders Only [facility] [address] [place] [address] Faustino Topete MD 800 [facility] [place] [facility] [address] [place] [address] Metastatic malignant neuroendocrine tumor to [...] to sleep or slept in a senior care (including now)? No 12/01/2023 CAGE ASSESSMENT Answer [...] drink first t volodymyr in the morning (EYE-JEWEL INSPECTOR) to steady your nerves or to get rid of a hangover? 0 12/02/2023 CAGE Questionnaire Score 0 024 Utilities Answer Date Recorded In the past 12 months has th e [employer], gas, oil, or water company threatened to [...] Description 12/05/2024 10:30 AM EDT Office Visit [facility] Multidisciplinary Oncology Clinic [address] [place] [address] Shannon Aguero, LADIES LOCKER ROOM ATTENDANT [address] [phone] documented as of this encounter Visit Diagnoses [...] documented as of this encounter Care Teams Electro Optics Engineer Relationship Specialty Start Date End Date Armani Campa MD [address] [place] [address] PCP - General 10/19/22 Kylee James APRN [address] [address] Nurse Practitioner Medical Oncology 03/30/23 Faustino Topete MD [address] [address] Consulting Physician Medical Oncology 12/01/23 documented as of this encounter
--- OUTSIDE RECORDS SUMMARY | 2024-11-24 10:01 | XMS_ITS | Encounter Summary ---
Author Organization [facility] Address [address] [place] [address] Care Team Providers Care Utility Inspector Name Role Phone Armani Campa MD Primary Care Provider [phone] Kylee James APRN Unavailable [phone] Faustino Ruano MD Unavailable [phone] Encounter Details Date Type Department Care Team (Late st Contact Info) Description 11/13/2024 Telephone [facility] [address] [place] [address] Faustino Ruano MD 800 [facility] [address] [place] [address] Social History Tobacco Use Types [...] drink first t volodymyr in the morning (EYE-FILTER PRESS TENDER HEAD) to steady your nerves or to get [...] was left IVF order sent in to [facility] and noted dr ruano's message on the serotonin level * Telephone Encounter - Leticia Bowen - 11/13/2024 12:18 PM EDT Melody not listed on pts preferred contacts, no answer from pt. * Telephone Encounter - Fransisca Jasso - 11/13/2024 11:39 AM EDT Patient Phone Message Reason for Call: Melody was worried about her serotonin level and IV fluids in her hometown [facility]- Can you Melody back? Best contact number and optimal time of day to reach caller: [phone] Note: Please do not reply to this [...] Description 12/05/2024 10:30 AM EDT Office Visit [facility] Multidisciplinary Oncology Clinic [address] [place] [address] Shannon Aguero, SHERIE 800 [facility] [address] Cheung [facility] [address] [place] [address] documented as of this encounter Visit Diagnoses Not on filedocumented in this encounter Additional Health Concerns Assessment Noted Time A fall risk assessment has been complete d for the patient 11/10/2024 2:13 PM EDT A Body Mass Index follow-up plan has been documented for the patient 12/13/2023 2:27 PM EDT documented as of this encounter Care Teams Utility Inspector Relationship Specialty Start Date End Date Armani Campa MD [address] [place] [address] PCP - General 10/19/22 Kylee James APRN [address] Cheung [address] [address] Nurse Practitioner Medical Oncology 03/30/23 Faustino Ruano MD [address] Che[address] [address] Consulting Physician Medical Oncology 12/01/23 documented as of this encounter
--- OUTSIDE RECORDS SUMMARY | 2024-11-24 10:01 | XMS_ITS | Encounter Summary ---
Author Organization [facility] Address [address] [place] [address] Care Team Providers Care Music Box Mechanic Name Role Phone Armani Campa MD Primary Care Provider [phone] Kylee James APRN Unavailable Faustino Topete MD Unavailable [phone] Encounter Details Date Type Department Care Team [...] place to sleep or slept in a detention (including now)? No 12/01/2023 CAGE ASSESSMENT Answer [...] drink first t volodymyr in the morning (EYE-MANAGER MEDICARE MARKETING) to steady your nerves or to [...] Description 12/05/2024 10:30 AM EDT Office Visit [facility] Multidisciplinary Oncology Clinic [address] [place] [address] Shannon Aguero, GMAT INSTRUCTOR [address] [facility] [address] [place] [address] documented as of this encounter Visit Diagnoses Not on filedocumented in this encounter Additional Health Concerns Assessment Noted Time A fall risk assessment has been complete d for the patient 11/10/2024 2:13 PM EDT A Body Mass Index follow-up plan has been documented for the patient 12/13/2023 2:27 PM EDT documented as of this encounter Care Teams Music Box Mechanic Relationship Specialty Start Date End Date Armani Campa MD [address] [place] [address] PCP - General 10/19/22 Kylee James APRN [address] [facility] [address] [place] [address] Nurse Practitioner Medical Oncology 03/30/23 Faustino Topete MD [address] [facility] [address] [place] [address] Consulting Physician Medical Oncology 12/01/23 documented as of this encounter
--- OUTSIDE RECORDS SUMMARY | 2024-11-24 10:01 | XMS_ITS | Data Portability ---
Author Organization [facility] RADHA Rice [facility] Address [address] [facility] [place] [address] Care Team Providers Care Towboat Engineer Name Role Phone PEPE CORTES Referring Provider [phone] Assessment Encounter Date Assessment Date Assessment LastModified by Organization Details LastModified Time 07/02/2022 07/02/2022 Symptoms consistent with bladder spasms and overactive bladder. Trial of Vesicare. [email or web address] Not available 07/04/2022 15:48:22 08/20/2022 08/20/2022 Medical management of overactive bladder with Vesicare. Follow up in 6 months. [email or web address] Not available 08/20/2022 14:51:37 Plan of Treatment Reminders Order Date Submit Date Provider Last Modified By Organization Details Last Modified Time Details Appointments None recorded. Lab urinalysis panel, auto 2022 023 [email or web address] 14 [facility] Extended Services With [address], [place], [address], 3 08:02:57 urinalysis panel, auto 2022 023 [email or web address] 14 [facility] Extended Services With [address], [place], [address], 3 09:27:49 Referral None recorded. Procedures None recorded. Surgeries None recorded. Imaging None recorded. Medication Orders solifenacin 10 mg tablet 2022 023 [email or web address] 14 [facility] 315, [address], [address], 3 09:10:31 solifenacin 10 mg tablet 2022 023 [facility] 591, 805 [address] [place], [address], 3 15:05:24 Patient TargetsNo targets recorded. Patient Instructions Encounter Date Encounter Id Patient Instructions Last Modified By Organization Details Last Modified Time 08/20/2022 [id number] learning about healthy weight [email or web address] Not available 08/21/2022 08:02:57 Reason for Referral None Reported. Results Created Date Observation Date Name Description Value Unit Range Abnormal Flag Note LastModifiedBy Organization Detail LastModifiedTime 07/02/1907/02/2022 urina lysis panel , auto Unknown Analyte Clean Catch Not Available [facility] Extended Services With [address], [place], [address], 07/02/2022 14:45:06 07/02/19 23 07/02/2022 urina lysis panel , auto Unknown Analyte Yellow Not Available [facility] Extended Services With [address], [place], [address], 07/02/2022 14:45:06 07/02/19 23 07/02/2022 urina lysis panel , auto Unknown Analyte Clear Not Available [facility] Extended Services With [address], [place], [address], 07/02/2022 14:45:06 07/02/19 23 07/02/2022 urina lysis panel , auto Unknown Analyte 1.005 Not Available [facility] Extended Services With [address] [place], [address], 07/02/2022 14:45:06 07/02/19 23 07/02/2022 urina lysis panel , auto Unknown Analyte 1.003- 1.035 Not Available [facility] Extended Services With [address], [place], [address], 07/02/2022 14:45:06 07/02/19 23 07/02/2022 urina lysis panel , auto Unknown Analyte 8.0 Not Available [facility] Extended Services With [address] [place], [address], 07/02/2022 14:45:06 07/02/19 23 07/02/2022 urina lysis panel , auto Unknown Analyte 5.0-8. 0 Not Available [facility] Extended Services With [address] [place], [address], 07/02/2022 14:45:06 07/02/19 23 07/02/2022 urina lysis panel , auto Unknown Analyte Negati ve Not Available [facility] Extended Services With [address] [place], [address], 07/02/2022 14:45:06 07/02/19 23 07/02/2022 urina lysis panel , auto Unknown Analyte Negati ve Not Available [facility] Extended Services With [address] [place], [address], 07/02/2022 14:45:06 07/02/19 23 07/02/2022 urina lysis panel , auto Unknown Analyte Negati ve Not Available [facility] Extended Services With [address] [place], [address], 07/02/2022 14:45:06 07/02/19 23 07/02/2022 urina lysis panel , auto Unknown Analyte Negati ve Not Available [facility] Extended Services With [address] [place], [address], 07/02/2022 14:45:06 07/02/19 23 07/02/2022 urina lysis panel , auto Unknown Analyte Negati ve Not Available [facility] Extended Services With [address] [place], [address], 07/02/2022 14:45:06 07/02/19 23 07/02/2022 urina lysis panel , auto Unknown Analyte Negati ve Not Available [facility] Extended Services With [address] [place], [address], 07/02/2022 14:45:06 07/02/19 23 07/02/2022 urina lysis panel , auto Unknown Analyte Normal Not Available [facility] Extended Services With [address] [place], [address], 07/02/2022 14:45:06 07/02/19 23 07/02/2022 urina lysis panel , auto Unknown Analyte Normal Not Available [facility] Extended Services With [address] [place], [address], 07/02/2022 14:45:06 07/02/19 23 07/02/2022 urina lysis panel , auto Unknown Analyte Negati ve Not Available [facility] Extended Services With [address] [place], [address], 07/02/2022 14:45:06 07/02/19 23 07/02/2022 urina lysis panel , auto Unknown Analyte Negati ve Not Available [facility] Extended Services With [address] [place], [address], 07/02/2022 14:45:06 07/02/19 23 07/02/2022 urina lysis panel , auto Unknown Analyte Normal Not Available [facility] Extended Services With [address], [place], [address], 07/02/2022 14:45:06 07/02/19 23 07/02/2022 urina lysis panel , auto Unknown Analyte Normal 1 mg/dl Not Available [facility] Extended Services With [address] [place], [address], 07/02/2022 14:45:06 07/02/19 23 07/02/2022 urina lysis panel , auto Unknown Analyte Negati ve Not Available [facility] Extended Services With [address] [place], [address], 07/02/2022 14:45:06 07/02/19 23 07/02/2022 urina lysis panel , auto Unknown Analyte Negati ve Not Available [facility] Extended Services With [address] [place], [address], 07/02/2022 14:45:06 07/02/19 23 07/02/2022 urina lysis panel , auto Unknown Analyte Negati ve Not Available [facility] Extended Services With [address] [place], [address], 07/02/2022 14:45:06 07/02/19 23 07/02/2022 urina lysis panel , auto Unknown Analyte Negati ve Not Available [facility] Extended Services With [address] [place], [address], 07/02/2022 14:45:06 08/21/19 23 08/20/2022 urina lysis panel , auto Unknown Analyte Clean Catch Not Available [facility] Extended Services With [address] [place], [address], 08/20/2022 14:41:44 08/21/19 23 08/20/2022 urina lysis panel , auto Unknown Analyte Yellow Not Available [facility] Extended Services With [address], [place], [address], 08/20/2022 14:41:44 08/21/19 23 08/20/2022 urina lysis panel , auto Unknown Analyte Clear Not Available [facility] Extended Services With [address] [place], [address], 08/20/2022 14:41:44 08/21/1908/20/2022 urina lysis panel , auto Unknown Analyte 1.005 Not Available [facility] Extended Services With [address] [place], [address], 08/20/2022 14:41:44 08/21/19 23 08/20/2022 urina lysis panel , auto Unknown Analyte 1.003- 1.035 Not Available [facility] Extended Services With [address] [place], [address], 08/20/2022 14:41:44 08/21/19 23 08/20/2022 urina lysis panel , auto Unknown Analyte 6.5 Not Available [facility] Extended Services With [address] [place], [address], 08/20/2022 14:41:44 08/21/1908/20/2022 urina lysis panel , auto Unknown Analyte 5.0-8. 0 Not Available [facility] Extended Services With [address] [place], [address], 08/20/2022 14:41:44 08/21/19 23 08/20/2022 urina lysis panel , auto Unknown Analyte Negati ve Not Available [facility] Extended Services With [address] [place], [address], 08/20/2022 14:41:44 08/21/1908/20/2022 urina lysis panel , auto Unknown Analyte Negati ve Not Available [facility] Extended Services With [address], [place], [address], 08/20/2022 14:41:44 08/21/1908/20/2022 urina lysis panel , auto Unknown Analyte Negati ve Not Available [facility] Extended Services With [address], [place], [address], 08/20/2022 14:41:44 08/21/1908/20/2022 urina lysis panel , auto Unknown Analyte Negati ve Not Available [facility] Extended Services With [address], [place], [address], 08/20/2022 14:41:44 08/21/1908/20/2022 urina lysis panel , auto Unknown Analyte Negati ve Not Available [facility] Extended Services With [address], [place], [address], 08/20/2022 14:41:44 08/21/1908/20/2022 urina lysis panel , auto Unknown Analyte Negati ve Not Available [facility] Extended Services With [address] [place], [address], 08/20/2022 14:41:44 08/21/1908/20/2022 urina lysis panel , auto Unknown Analyte Normal Not Available [facility] Extended Services With [address] [place], [address], 08/20/2022 14:41:44 08/21/1908/20/2022 urina lysis panel , auto Unknown Analyte Normal Not Available [facility] Extended Services With [address] [place], [address], 08/20/2022 14:41:44 08/21/1908/20/2022 urina lysis panel , auto Unknown Analyte Negati ve Not Available [facility] Extended Services With [address] [place], [address], 08/20/2022 14:41:44 08/21/1908/20/2022 urina lysis panel , auto Unknown Analyte Negati ve Not Available [facility] Extended Services With [address] [place], [address], 08/20/2022 14:41:44 08/21/1908/20/2022 urina lysis panel , auto Unknown Analyte Normal Not Available [facility] Extended Services With [address] [place], [address], 08/20/2022 14:41:44 08/21/1908/20/2022 urina lysis panel , auto Unknown Analyte Normal 1 mg/dl Not Available [facility] Extended Services With [address] [place], [address], 08/20/2022 14:41:44 08/21/1908/20/2022 urina lysis panel , auto Unknown Analyte Negati ve Not Available [facility] Extended Services With [address] [place], [address], 08/20/2022 14:41:44 08/21/1908/20/2022 urina lysis panel , auto Unknown Analyte Negati ve Not Available [facility] Extended Services With [address] [place], [address], 08/20/2022 14:41:44 08/21/1908/20/2022 urina lysis panel , auto Unknown Analyte Negati ve Not Available [facility] With [address], [place], [address], 08/20/2022 14:41:44 08/21/1908/20/2022 urina lysis panel , auto Unknown Analyte Negati ve Not Available [facility] Extended Services With [address], [place], [address], 08/20/2022 14:41:44 Result Notes None recorded. Procedures Surgical History Date Name Laterality Status Provider Name and Address Organization Details Recorded Time Knee arthroscopy /surgery completed [facility] 07/02/2022 14:43:48 Imaging Results None recorded. Procedure [...] Updated DateTime 07/02/2022 154.94 cm 21.4 kg/m2 38908.94 g [facility] 07/02/2022 14:41:26 Date Recorded Body height Body mass index (BMI) Body weight Provider Name and Address Organization Details Last Updated DateTime 08/20/2022 154.94 cm 21.4 kg/m2 90696.94 g [facility] 08/20/2022 14:40:59 Social History Question Answer Notes LastModified by Organizat ion Details LastModified Time Tobacco Smoking Status Never Smoker [facility] 07/02/2022 14:43:28 What Was The Date Of Your Most Recent Tobacco Screening? 08/20/2022 [email or web address] Information not available 08/20/2022 What Is Your Relationship Status? [email or web address] Information not available 07/02/2022 Sex: Unknown Functional Status Question Answer Note LastModified by Organization D etails LastModified Time What is your level of alcohol consumption? None [email or web address] Information not available 07/02/2022 Mental Status None [...] SNOMED-CT Code Diagnosis ICD10 Code Diagnosis Note [id number] QIAN ARCEO MD [facility] [address] [place] [address] ,[place] [address] 07/02/2022 14:06:12 07/05/2022 04:02:59 Overactive urinary bladder 867320195 N32.81 Nocturia 722651846 R35.1 [id number] QIAN ARCEO MD [facility] [address] [place] [address],[place] [address] 08/20/2022 14:40:42 08/22/2022 04:36:15 Overactive urinary bladder [id number] N32.81 Nocturia 190411001 R35.1 Health Concerns Section Related Observation LastModified by Organization Detai ls LastModified Time None Recorded Concern Status LastModified by Organization Details LastModified Time None Recorded Advance Directives Directive None Recorded Payers Insurance Date Sequence Insurance Name Policy Number Policy Bowen Covered Member ID Bowen Member ID Guarantor Name 08/17/2022 1 [facility] (MEDICAID REPLACEMENT - HMO) Radha Vidales [id number] Radha Vidales Notes Date Note Type Note [...] urination, not during urination. QIAN ARCEO MD [address] [place] [address], [address], [facility] 07/04/2022 15:53:03 08/20/2022 text/html 77-year-old harleen [...] of concern to patient. QIAN ARCEO MD [address] [place] [address], [address], [facility] 08/21/2022 08:03:15 OBGyn Episode No OBEpisode recorded.
[2024-11-24 10:20] VITALS: BP 121/60; PULSE 69; RESP 16; O2SAT 97
[2024-11-24] MEDS: 0.9 % SODIUM CHLORIDE 1000ML 1,000 ML 999 ML IV (10:20)
[2024-11-24 11:45] VITALS: BP 171/83; PULSE 80; RESP 17
== END 2024-11-24 11:50 | disposition home or self-care (01) ==
LOC: INF 09:59
PROVIDERS: PCP Family Medicine; Visit Provider Internal Medicine Hematology & Oncology
DX: C7A.019 Malignant carcinoid tumor of the small intestine, unspecified portion (principal)
CPT/HCPCS: 96360; J7030

== ENCOUNTER 2024-11-30 09:58 | Outpatient (CLI) | payer MEDICARE, SELFPAY ==
--- OUTSIDE RECORDS SUMMARY | 2024-11-10 14:00 | XMS_ITS | Encounter Summary ---
Author Organization [facility] Address [address] 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 No 12/01/2023 CAGE ASSESSMENT Answer [...] drink first t volodymyr in the morning (EYE-MECHANICAL ENGINEERING INTERN) to steady your nerves or to get rid of a hangover? 0 12/02/2023 CAGE Questionnaire Score 0 024 Utilities Answer Date Recorded In the past 12 months has th e [employer], gas, oil, or water company threatened to [...] had. Currently in hospice. 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 She has been having intermittent, non-frequent episodes [...] file Social Connections: Unknown (03/08/2023) Received from [facility] Help with Day-to-Day [...] will contact us. I spent 30 minutes [id number]-dl-[id number] with the patient and bhz-axox-tt-face time, over half in discussionof the diagnosis and the importance of compliance with the treatment plan. Faustino Topete MD, FACP [facility] [address] [facility], [address] [place] [address] documented in this encounter Plan of Treatment Upcoming Encounters Date Type Department Care Team ([facility] st Contact Info) Description 12/05/2024 10:30 AM EDT Office Visit [facility] Multidisciplinary Oncology Clinic [address] [place] [address] Shannon Aguero, SHIFT MECHANIC [address] [place] [address] documented as of this encounter Procedures Procedure [...] - 2.4 mg/dL 11/10/2024 4:51 PM EDT [facility] Blood Venous blood specimen / Unknown Venipuncture / Unknown 11/10/2024 4:02 PM EDT 11/10/2024 4:18 PM EDT us Faustino Topete MD LAB BLOOD ORDERABLES Final R esult [facility] [address] [place] [address] * (ABNORMAL) 5-HIAA, Plasma (11/10/2024 4:02 PM EDT) Pathologist [facility] Fasting greater than or equal to 8 hours? Yes 11/23/2024 4:20 PM EDT [facility] 5-Hydroxyindole acetic Acid (HIAA), Plasma 58(H) <=22 ng/ml 11/23/2024 4:20 PM EDT [facility] ([facility]) Blood Venous blood specimen / Unknown Venipuncture / Unknown 11/10/2024 4:02 PM EDT 11/10/2024 4:12 PM EDT Narrative [facility] ([facility]) - 11/23/2024 4:20 PM EDT This GCMS assay was developed and its performance characteristics determined by [facility]. It has not been cleared or approved by the FDA and such approval or clearance is not required at this time. Values obtained with different methods, different laboratories or with kits cannot be used interchangeably with the results on this report. The results cannot be interpreted as absolute evidence of the presence or absence of malignant disease. Performed By: [facility] [address] [place] [address]<lb> us Faustino Topete MD LAB BLOOD ORDERABLES Final R esult [facility] ([facility]) [facility] [address] [place] [address] * (ABNORMAL) Chromogranin A (11/10/2024 4:02 PM EDT) [facility] CHROMOGRANIN A 1622(H) <93 ng/mL 11/14/2024 6:56 PM EDT [facility] ([facility]) Comment: Impaired renal or hepatic function or treatment with proton pump inhibitors may result in artifactual elevations of Chromogranin A. ADDITIONAL INFORMATION The testing method is a homogeneous time-resolved immunofluorescent assay manufactured by [employer] and performed on the [employer] Kryptor Compact Plus. Values obtained with different [...] examination and other findings. Test Performed by: [facility] [address] [place] [address] Database Marketing Manager: David Hawkins Ph.D.; CLIA# [id number] Blood Venous blood specimen / Unknown Venipuncture / Unknown 11/10/2024 4:02 PM EDT 11/10/2024 4:19 PM EDT Faustino Topete MD LAB BLOOD ORDERABLES Final R esult Performing Organization Address [facility] Co de Phone Number [facility]) * (ABNORMAL) Serotonin, Serum (11/10/2024 4:02 PM EDT) SEROTONIN 1449(H) 50 - 220 ng/mL 11/13/2024 6:02 AM EDT [facility] ([facility]) Serum Venous blood specimen / Unknown 11/10/2024 4:02 PM EDT 11/10/2024 4:18 PM EDT Narrative [facility]) - 11/13/2024 6:02 AM EDT TEST INFORMATION: Serotonin, Serum This test was developed and its performance characteristics determined by [facility]. It has not been cleared or approved by the [place] Food and Drug Administration. This test was performed in a CLIA certified laboratory and is intended for clinical purposes. Performed By: [facility] [address] [place] [address] Cot Assembler: Kurt Borges MD, PhD CLIA Number: [id number] Faustino Topete MD LAB BLOOD ORDERABLES Final R esult Performing Organization Address [facility] Co de Phone Number [facility] [place]) [address] [place] [phone] * (ABNORMAL) Comprehensive metabolic panel (11/10/2024 4:02 PM EDT) [facility] Glucose, Plasma 92 74 - 99 mg/dL 11/10/2024 4:51 PM EDT [facility] BUN, Plasma 14 8 - 23 mg/dL 11/10/2024 4:51 PM EDT [facility] Creatinine, Plasma 0.57(L) 0.60 - 1.10 mg/dL 11/10/2024 4:51 PM EDT [facility] BUN/Creatinine Ratio 25 11/10/2024 4:51 PM EDT [facility] Sodium, Plasma 141 136 - 145 mmol/L 11/10/2024 4:51 PM EDT [facility] Potassium, Plasma 3.4(L) 3.6 - 4.9 mmol/L 11/10/2024 4:51 PM EDT [facility] Chloride, Plasma 106 97 - 107 mmol/L 11/10/2024 4:51 PM EDT [facility] CO2, Plasma 21(L) 22 - 29 mmol/L 11/10/2024 4:51 PM EDT [facility] Anion Gap 14 6 - 16 mmol/L 11/10/2024 4:51 PM EDT [facility] Total Calcium, Plasma 8.6(L) 8.9 - 10.2 mg/dL 11/10/2024 4:51 PM EDT [facility] Total Protein 7.4 6.3 - 7.9 g/dL 11/10/2024 4:51 PM EDT [facility] Albumin, Plasma 3.8 3.5 - 5.2 g/dL 11/10/2024 4:51 PM EDT [facility] AST, Plasma 36(H) 10 - 35 U/L 11/10/2024 4:51 PM EDT [facility] ALT, Plasma 20 10 - 35 U/L 11/10/2024 4:51 PM EDT [facility] Alkaline Phosphatase, Plasma 98 46 - 142 U/L 11/10/2024 4:51 PM EDT [facility] Total Bilirubin, Plasma 0.3 0.2 - 1.1 mg/dL 11/10/2024 4:51 PM EDT [facility] eGFRcr 91.4 mL/min/1.7 3m*2 11/10/2024 4:51 PM EDT [facility] Comment:Reported eGFRcr in m L/min/1.73m2 is based the CKD-EPI 2020 equation that does not use a race coefficient. Blood Venous blood specimen / Unknown Venipuncture / Unknown 11/10/2024 4:02 PM EDT 11/10/2024 4:18 PM EDT us Faustino Topete MD LAB BLOOD ORDERABLES Final R esult [facility] [address] [place] [address] * (ABNORMAL) CBC and differential (11/10/2024 4:02 PM EDT) WBC Count 6.30 3.70 - 10.30 10*3/uL LAB HEMATOLOGY METHOD 11/10/2024 5:55 PM EDT [facility] RBC Count 4.67 3.90 - 5.20 10*6/uL LAB HEMATOLOGY METHOD 11/10/2024 5:55 PM EDT [facility] HGB 11.7 11.2 - 15.7 g/dL LAB HEMATOLOGY METHOD 11/10/2024 5:55 PM EDT [facility] HCT 37.8 34.0 - 45.0 % LAB HEMATOLOGY METHOD 11/10/2024 5:55 PM EDT [facility] Platelet Count 138(L) 155 - 369 10*3/uL LAB HEMATOLOGY METHOD 11/10/2024 5:55 PM EDT [facility] MCV 81 79 - 98 fL LAB HEMATOLOGY METHOD 11/10/2024 5:55 PM EDT [facility] MCH 25.1(L) 26.0 - 32.0 pg LAB HEMATOLOGY METHOD 11/10/2024 5:55 PM EDT [facility] MCHC 31.0 30.7 - 35.5 g/dL LAB HEMATOLOGY METHOD 11/10/2024 5:55 PM EDT [facility] RDW 16.1(H) 11.5 - 14.5 % LAB HEMATOLOGY METHOD 11/10/2024 5:55 PM EDT [facility] MPV LAB HEMATOLOGY METHOD 11/10/2024 5:55 PM EDT [facility] Comment:Not Measured nRBC 0.0 <=0.0 per 100 WBCs LAB HEMATOLOGY METHOD 11/10/2024 5:55 PM EDT [facility] Differential Type Automated LAB HEMATOLOGY METHOD 11/10/2024 5:55 PM EDT [facility] Neutrophils % 75 % LAB HEMATOLOGY METHOD 11/10/2024 5:55 PM EDT [facility] Lymphocytes % 15 % LAB HEMATOLOGY METHOD 11/10/2024 5:55 PM EDT [facility] Monocytes % 9 % LAB HEMATOLOGY METHOD 11/10/2024 5:55 PM EDT [facility] Eosinophils % 1 % LAB HEMATOLOGY METHOD 11/10/2024 5:55 PM EDT [facility] Basophils % 0 % LAB HEMATOLOGY METHOD 11/10/2024 5:55 PM EDT [facility] Immature Granulocytes % 0 % LAB HEMATOLOGY METHOD 11/10/2024 5:55 PM EDT [facility] Neutrophils Absolute 4.69 1.60 - 6.10 10*3/uL LAB HEMATOLOGY METHOD 11/10/2024 5:55 PM EDT [facility] Lymphocytes Absolute 0.95(L) 1.20 - 3.90 10*3/uL LAB HEMATOLOGY METHOD 11/10/2024 5:55 PM EDT [facility] Monocytes Absolute 0.54 0.30 - 0.90 10*3/uL LAB HEMATOLOGY METHOD 11/10/2024 5:55 PM EDT [facility] Eosinophils Absolute 0.08 0.00 - 0.50 10*3/uL LAB HEMATOLOGY METHOD 11/10/2024 5:55 PM EDT [facility] Basophils Absolute 0.02 0.00 - 0.10 10*3/uL LAB HEMATOLOGY METHOD 11/10/2024 5:55 PM EDT [facility] Immature Granulocytes Absolute 0.02 0.00 - 0.06 10*3/uL LAB HEMATOLOGY METHOD 11/10/2024 5:55 PM EDT [facility] Blood Venous blood specimen / Unknown Venipuncture / Unknown 11/10/2024 4:02 PM EDT 11/10/2024 4:27 PM EDT Narrative [facility] - 11/10/2024 5:55 PM EDT Therapeutic decision making should be based on absolute values, rather than percentages. Faustino Topete MD LAB BLOOD ORDERABLES Final R esult [facility] [address] [place] [address] documented in this encounter Visit Diagnoses Diagnosis [...] documented as of this encounter Care Teams Criminal Justice Lawyer Relationship Specialty Start Date End Date Armani Campa MD [address] [place] [id number] PCP - General 10/19/22 Kylee James APRN [address] [address] Nurse Practitioner Medical Oncology 03/30/23 Faustino Topete MD [address] [facility] [address] [place] [address] Consulting Physician Medical Oncology 12/01/23 documented as of this encounter
--- OUTSIDE RECORDS SUMMARY | 2024-11-30 10:01 | XMS_ITS | Encounter Summary ---
Author Organization [facility] Address [address] 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-PLISSE MACHINE OPERATOR HELPER) to steady your nerves or to get [...] Description 12/05/2024 10:30 AM EDT Office Visit [facility] Multidisciplinary Oncology Clinic [address] [place] [address] Shannon Aguero, JUNIOR AUTOMATION ENGINEER [address] [facility] [address] [place] [address] documented as of this encounter Visit Diagnoses Not on filedocumented in this encounter Additional Health Concerns Assessment Noted Time A fall risk assessment has been complete d for the patient 11/10/2024 2:13 PM EDT A Body Mass Index follow-up plan has been documented for the patient 12/13/2023 2:27 PM EDT documented as of this encounter Care Teams Mortar Mixer Operator Relationship Specialty Start Date End Date Armani Campa MD [address] [place] [address] PCP - General 10/19/22 Kylee James, JUNIOR AUTOMATION ENGINEER [address] [facility] [address] [place] [address] Nurse Practitioner Medical Oncology 03/30/23 Faustino Topete MD [address] [facility] [address] [place] [address] Consulting Physician Medical Oncology 12/01/23 documented as of this encounter
--- OUTSIDE RECORDS SUMMARY | 2024-11-30 10:01 | XMS_ITS | Clinical Summary ---
Author Organization [facility] Address [address] [place] [address] Care Team Providers Care Bell Tier Name Role Phone Armani Campa MD Primary Care Provider [phone] Kylee James APRN Unavailable [phone] Faustino Topete MD Unavailable [phone] Allergies No known active allergies Medications alendronate [...] as needed (diarrhea). 90 mL 5 11/22/19 Active [facility] Please dispense appropriate needles and syringes for octreotide injection 90 each 3 11/30/19 Active octreotide (SandoSTATIN) 1000 MCG/ML injectionIndicatio ns:Malignant neuroendocrine neoplasm (CMS/HCC) Inject 0.2 mL (200 mcg) under the skin 3 (three) times a day if needed (diarrhea). 11/27/19 24 025 Discontin ued(Reord er) Active Problems Problem [...] Encounters Date Type Department Care Team Description 11/29/2024 Refill [facility] Mult[facility]isciplinary Oncology Clinic [address] [place] [address] Marlin Guevara, PharmD 11/21/2024 Telephone [facility] [address] [place] [address] Noble Burrell, PharmD new start 11/21/2024 Refill [facility] Mult[facility]isciplinary Oncology Clinic [address] [place] [address] Faustino Topete MD Malignant neuroendocrine neoplasm (CMS/HCC) 11/15/2024 Orders Only [facility] Mult[facility] Oncology Clinic [address] [place] [address] Faustino Topete MD 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) 11/13/2024 Telephone [facility] Mult[facility] Oncology [facility] [address] [place] [address] Faustino Topete MD 11/10/2024 2:00 PM EDT Office Visit [facility] Mult[facility] Oncology [facility] [address] [place] [address] Faustino Topete MD 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); 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); Diarrhea, unspecified type 11/10/2024 Travel 11/09/2024 Travel 10/24/2024 Telephone [facility] [address] [place] [address] Faustino Topete MD 10/11/2024 Telephone [facility]cology [facility] [address] [place] [address] Faustino Topete MD from Last 3 Months Immunizations Immunization Administration Dates Next Due Influenza, high-dose, quadrivalent 03/11/2022 Joselo COVID-19 Vaccine (Blue Cap) 18+ 08/08/19 21 Moderna COVID-19 Vaccine (Golf Superintendent) 12+ years Moderna COVID-19 Vaccine Bivalent 6months+ [...] drink first t volodymyr in the morning (EYE-MAILROOM CLERK) to steady your nerves or to get rid of a hangover? 0 12/02/2023 CAGE Questionnaire Score 0 024 Utilities Answer Date Recorded In the past 12 months has th [employer], gas, oil, or water [employer] threatened to shut off services in your [...] Description 12/05/2024 10:30 AM EDT Office Visit [facility] [address] [place] [address] Shannon Aguero, QUALITY CONTROL TECH [employer] [address] [facility] Rosemarie Cheung [facility] [address] [place] [address] Health Maintenance Due Date Last Done Comments [facility]-Bone Density Scan 1943 [facility]-Depression Screening 1943 [facility]-Infant/Child/Adol SDOH Screenings 1945 [facility]-Hepatitis A Vaccines (1 of 2 - Risk 2-dose series) 1962 [facility]-Pneumococcal Vaccine: 50+ Years (1 of 2 - PCV) 1962 [facility]- SDOH Screenings 06/02/2024 [facility]-Adult SDOH Screenings 06/02/2024 12/01/2023 [facility]-FNDOF-26 Vaccine ( - 2023- season) 2024 03/12/2024, 03/12/2023, 03/11/2022, Additional history exists [facility]-Influenza Vaccine (#1) 01/29/202502/27, 03/12/2023, 03/11/2022 [facility]-Medicare Annual Wellness (AWV) 02/14/2025 02/15/2024, 07/02/2022 [facility]-DTaP,Tdap,and Td Vaccines (3 - Td or Tdap) 12/20/2033 12/21/2023, 02/23/2022 [facility]-Zoster Vaccines Completed 12/20/2017, 8 [facility]-RSV Vaccine: 60+ Years or Completed 03/12/2024 [...] 1622(H) <93 ng/mL 11/14/2024 6:56 PM EDT [facility] Comment: Impaired renal or hepatic function or treatment with proton pump inhibitors may result in artifactual elevations of Chromogranin A. ADDITIONAL INFORMATION The testing method is a homogeneous time-resolved immunofluorescent assay manufactured by [employer] and performed on the Zenoss Kryptor Compact Plus. Values obtained with different [...] examination and other findings. Test Performed by: [address] [address] Cross Country/Track And Field Coach: David Hawkins Ph.D.; CLIA# [id number] Blood Venous blood specimen / Unknown Venipuncture / Unknown 11/10/2024 4:02 PM EDT 11/10/2024 4:19 PM EDT Faustino Topete MD LAB BLOOD ORDERABLES Final R esult Performing Organization Address City/[facility]/ZIP Co de Phone Number [facility] * (ABNORMAL) 5-HIAA, Plasma (11/10/2024 4:02 PM EDT) Fasting greater than or equal to 8 hours? Yes 11/23/2024 4:20 PM EDT [facility] 5-Hydroxyindole acetic Acid (HIAA), Plasma 58(H) <=22 ng/ml 11/23/2024 4:20 PM EDT [facility] ([facility]) Blood Venous blood specimen / Unknown Venipuncture / Unknown 11/10/2024 4:02 PM EDT 11/10/2024 4:12 PM EDT Narrative [facility] ([facility]) - 11/23/2024 4:20 PM EDT This GCMS assay was developed and its performance characteristics determined by [facility]. It has not been cleared or approved by the FDA and such approval or clearance is not required at this time. Values obtained with different methods, different laboratories or with kits cannot be used interchangeably with the results on this report. The results cannot be interpreted as absolute evidence of the presence or absence of malignant disease. Performed By: [facility] [address] [place] [id number]<lb> Faustino Topete MD LAB BLOOD ORDERABLES Final R esult Performing Organization Address City/[facility]/ZIP Co de Phone Number [facility] ([facility]) [facility] [address] [place] [address] * (ABNORMAL) CBC and differential (11/10/2024 4:02 PM EDT) WBC Count 6.30 3.70 - 10.30 10*3/uL LAB HEMATOLOGY METHOD 11/10/2024 5:55 PM EDT [facility] RBC Count 4.67 3.90 - 5.20 10*6/uL LAB HEMATOLOGY METHOD 11/10/2024 5:55 PM EDT [facility] HGB 11.7 11.2 - 15.7 g/dL LAB HEMATOLOGY METHOD 11/10/2024 5:55 PM EDT [facility] HCT 37.8 34.0 - 45.0 % LAB HEMATOLOGY METHOD 11/10/2024 5:55 PM EDT [facility] Platelet Count 138(L) 155 - 369 10*3/uL LAB HEMATOLOGY METHOD 11/10/2024 5:55 PM EDT [facility] MCV 81 79 - 98 fL LAB HEMATOLOGY METHOD 11/10/2024 5:55 PM EDT [facility] MCH 25.1(L) 26.0 - 32.0 pg LAB HEMATOLOGY METHOD 11/10/2024 5:55 PM EDT [facility] MCHC 31.0 30.7 - 35.5 g/dL LAB HEMATOLOGY METHOD 11/10/2024 5:55 PM EDT [facility] RDW 16.1(H) 11.5 - 14.5 % LAB HEMATOLOGY METHOD 11/10/2024 5:55 PM EDT [facility] MPV LAB HEMATOLOGY METHOD 11/10/2024 5:55 PM EDT [facility] Comment:Not Measured nRBC 0.0 <=0.0 per 100 WBCs LAB HEMATOLOGY METHOD 11/10/2024 5:55 PM EDT [facility] Differential Type Automated LAB HEMATOLOGY METHOD 11/10/2024 5:55 PM EDT [facility] Neutrophils % 75 % LAB HEMATOLOGY METHOD 11/10/2024 5:55 PM EDT [facility] Lymphocytes % 15 % LAB HEMATOLOGY METHOD 11/10/2024 5:55 PM EDT [facility] Monocytes % 9 % LAB HEMATOLOGY METHOD 11/10/2024 5:55 PM EDT [facility] Eosinophils % 1 % LAB HEMATOLOGY METHOD 11/10/2024 5:55 PM EDT [facility] Basophils % 0 % LAB HEMATOLOGY METHOD 11/10/2024 5:55 PM EDT [facility] Immature Granulocytes % 0 % LAB HEMATOLOGY METHOD 11/10/2024 5:55 PM EDT [facility] Neutrophils Absolute 4.69 1.60 - 6.10 10*3/uL LAB HEMATOLOGY METHOD 11/10/2024 5:55 PM EDT [facility] Lymphocytes Absolute 0.95(L) 1.20 - 3.90 10*3/uL LAB HEMATOLOGY METHOD 11/10/2024 5:55 PM EDT [facility] Monocytes Absolute 0.54 0.30 - 0.90 10*3/uL LAB HEMATOLOGY METHOD 11/10/2024 5:55 PM EDT [facility] Eosinophils Absolute 0.08 0.00 - 0.50 10*3/uL LAB HEMATOLOGY METHOD 11/10/2024 5:55 PM EDT [facility] Basophils Absolute 0.02 0.00 - 0.10 10*3/uL LAB HEMATOLOGY METHOD 11/10/2024 5:55 PM EDT [facility] Immature Granulocytes Absolute 0.02 0.00 - 0.06 10*3/uL LAB HEMATOLOGY METHOD 11/10/2024 5:55 PM EDT [facility] Blood Venous blood specimen / Unknown Venipuncture / Unknown 11/10/2024 4:02 PM EDT 11/10/2024 4:27 PM EDT Narrative [facility] - 11/10/2024 5:55 PM EDT Therapeutic decision making should be based on absolute values, rather than percentages. Faustino Topete MD LAB BLOOD ORDERABLES Final R esult [facility] [address] [place] [address] * (ABNORMAL) Serotonin, Serum (11/10/2024 4:02 PM EDT) SEROTONIN 1449(H) 50 - 220 ng/mL 11/13/2024 6:02 AM EDT [facility] ([facility]) Serum Venous blood specimen / Unknown 11/10/2024 4:02 PM EDT 11/10/2024 4:18 PM EDT Narrative [email or web address] ([facility]) - 11/13/2024 6:02 AM EDT TEST INFORMATION: Serotonin, Serum This test was developed and its performance characteristics determined by [facility]. It has not been cleared or approved by the [place] Food and Drug Administration. This test was performed in a CLIA certified laboratory and is intended for clinical purposes. Performed By: [facility] [address] [place] [address] Neurology Technician: Kurt Borges MD, PhD CLIA Number: [id number] Faustino Topete MD LAB BLOOD ORDERABLES Final R esult Performing Organization Address City/[facility]/ZIP Co de Phone Number [facility] ([facility] [address] [place] [address] * (ABNORMAL) Magnesium (11/10/2024 4:02 PM EDT) Magnesium, Plasma 1.5(L) 1.9 - 2.4 mg/dL 11/10/2024 4:51 PM EDT [facility] Blood Venous blood specimen / Unknown Venipuncture / Unknown 11/10/2024 4:02 PM EDT 11/10/2024 4:18 PM EDT Faustino Topete MD LAB BLOOD ORDERABLES Final R esult [facility] [address] [place] [address] * (ABNORMAL) Comprehensive metabolic panel (11/10/2024 4:02 PM EDT) Glucose, Plasma 92 74 - 99 mg/dL 11/10/2024 4:51 PM EDT [facility] BUN, Plasma 14 8 - 23 mg/dL 11/10/2024 4:51 PM EDT [facility] Creatinine, Plasma 0.57(L) 0.60 - 1.10 mg/dL 11/10/2024 4:51 PM EDT [facility] BUN/Creatinine Ratio 25 11/10/2024 4:51 PM EDT [facility] Sodium, Plasma 141 136 - 145 mmol/L 11/10/2024 4:51 PM EDT [facility] Potassium, Plasma 3.4(L) 3.6 - 4.9 mmol/L 11/10/2024 4:51 PM EDT [facility] Chloride, Plasma 106 97 - 107 mmol/L 11/10/2024 4:51 PM EDT [facility] CO2, Plasma 21(L) 22 - 29 mmol/L 11/10/2024 4:51 PM EDT [facility] Anion Gap 14 6 - 16 mmol/L 11/10/2024 4:51 PM EDT [facility] Total Calcium, Plasma 8.6(L) 8.9 - 10.2 mg/dL 11/10/2024 4:51 PM EDT [facility] Total Protein 7.4 6.3 - 7.9 g/dL 11/10/2024 4:51 PM EDT [facility] Albumin, Plasma 3.8 3.5 - 5.2 g/dL 11/10/2024 4:51 PM EDT [facility] AST, Plasma 36(H) 10 - 35 U/L 11/10/2024 4:51 PM EDT [facility] ALT, Plasma 20 10 - 35 U/L 11/10/2024 4:51 PM EDT [facility] Alkaline Phosphatase, Plasma 98 46 - 142 U/L 11/10/2024 4:51 PM EDT [facility] Total Bilirubin, Plasma 0.3 0.2 - 1.1 mg/dL 11/10/2024 4:51 PM EDT [facility] eGFRcr 91.4 mL/min/1.7 3m*2 11/10/2024 4:51 PM EDT [facility] Comment:Reported eGFRcr in m L/min/1.73m2 is based the CKD-EPI 2020 equation that does not use a race coefficient. Blood Venous blood specimen / Unknown Venipuncture / Unknown 11/10/2024 4:02 PM EDT 11/10/2024 4:18 PM EDT us Faustino Topete MD LAB BLOOD ORDERABLES Final R esult [facility] [address] [place] [address] from Last 3 Months Insurance [employer] MEDICARE [...] Patient has decision-making capacity? Yes Care Teams Bell Tier Relationship Specialty Start Date End Date Armani Campa MD [address] [place] [address] PCP - General 10/19/22 Kylee James, QUALITY CONTROL TECH [employer] [address] [facility] [address] [place] [address] Nurse Practitioner Medical Oncology 03/30/23 Faustino Topete MD [address] [facility] [address] [place] [address] Consulting Physician Medical Oncology 12/01/23
--- OUTSIDE RECORDS SUMMARY | 2024-11-30 10:01 | XMS_ITS | Data Portability ---
Author Organization [facility] RADHA Rice TRENT CLOSED Address [address] [place] [address] Care Team Providers Care Crime Analyst Name Role Phone PEPE CORTES Referring Provider [phone] Assessment Encounter Date Assessment Date Assessment LastModified by Organization Details LastModified Time 07/02/2022 07/02/2022 Symptoms consistent with bladder spasms and overactive bladder. Trial of Vesicare. [email or web address] Not available 07/04/2022 15:48:22 08/20/2022 08/20/2022 Medical management of overactive bladder with Vesicare. Follow up in 6 months. [email or web address] Not available 08/20/2022 14:51:37 Plan of Treatment Reminders Order Date Submit Date Provider Last Modified By Organization Details Last Modified Time Details Appointments None recorded. Lab urinalysis panel, auto 2022 023 [email or web address] 14 [facility] Extended Services With [address], [place], [address], 3 08:02:57 urinalysis panel, auto 2022 023 [email or web address] 14 [facility] Extended Services With [address], [place], [address], 3 09:27:49 Referral None recorded. Procedures None recorded. Surgeries None recorded. Imaging None recorded. Medication Orders solifenacin 10 mg tablet 2022 023 [email or web address] 14 [facility], [address], [address], 3 09:10:31 solifenacin 10 mg tablet 2022 023 [facility], [address] [place], [address], 3 15:05:24 Patient TargetsNo targets recorded. Patient Instructions Encounter Date Encounter Id Patient Instructions Last Modified By Organization Details Last Modified Time 08/20/2022 [id number] learning about healthy weight [email or web address] Not available 08/21/2022 08:02:57 Reason for Referral None Reported. Results Created Date Observation Date Name Description Value Unit Range Abnormal Flag Note LastModifiedBy Organization Detail LastModifiedTime 07/02/1907/02/2022 urina lysis panel , auto Unknown Analyte Clean Catch Not Available [facility] Extended Services With [address], [place], [address], 07/02/2022 14:45:06 07/02/19 23 07/02/2022 urina lysis panel , auto Unknown Analyte Yellow Not Available [facility] Extended Services With [address], [place], [address], 07/02/2022 14:45:06 07/02/19 23 07/02/2022 urina lysis panel , auto Unknown Analyte Clear Not Available [facility] Services With [address], [place], [address], 07/02/2022 14:45:06 07/02/19 23 07/02/2022 urina lysis panel , auto Unknown Analyte 1.005 Not Available [facility] Services With [address] [place], [address], 07/02/2022 14:45:06 07/02/19 23 07/02/2022 urina lysis panel , auto Unknown Analyte 1.003- 1.035 Not Available [facility] Extended Services With [address] [place], [place], [address], 07/02/2022 14:45:06 07/02/19 23 07/02/2022 urina lysis panel , auto Unknown Analyte 8.0 Not Available [facility] Extended Services With [address] [place], [address], 07/02/2022 14:45:06 07/02/19 23 07/02/2022 urina lysis panel , auto Unknown Analyte 5.0-8. 0 Not Available [facility] Extended Services With [address] [place], [address], 07/02/2022 14:45:06 07/02/19 23 07/02/2022 urina lysis panel , auto Unknown Analyte Negati ve Not Available [facility] Extended Services With [address] [place], [address], 07/02/2022 14:45:06 07/02/19 23 07/02/2022 urina lysis panel , auto Unknown Analyte Negati ve Not Available [facility] Extended Services With [address] [place], [address], 07/02/2022 14:45:06 07/02/19 23 07/02/2022 urina lysis panel , auto Unknown Analyte Negati ve Not Available [facility] Extended Services With [address] [place], [address], 07/02/2022 14:45:06 07/02/19 23 07/02/2022 urina lysis panel , auto Unknown Analyte Negati ve Not Available [facility] Extended Services With [address] [place], [address], 07/02/2022 14:45:06 07/02/19 23 07/02/2022 urina lysis panel , auto Unknown Analyte Negati ve Not Available [facility] Extended Services With [address] [place], [address], 07/02/2022 14:45:06 07/02/19 23 07/02/2022 urina lysis panel , auto Unknown Analyte Negati ve Not Available [facility] Extended Services With [address] [place], [address], 07/02/2022 14:45:06 07/02/19 23 07/02/2022 urina lysis panel , auto Unknown Analyte Normal Not Available [facility] Extended Services With [address] [place], [address], 07/02/2022 14:45:06 07/02/19 23 07/02/2022 urina lysis panel , auto Unknown Analyte Normal Not Available [facility] Extended Services With [address] [place], [address], 07/02/2022 14:45:06 07/02/19 23 07/02/2022 urina lysis panel , auto Unknown Analyte Negati ve Not Available [facility] Extended Services With [address] [place], [address], 07/02/2022 14:45:06 07/02/19 23 07/02/2022 urina lysis panel , auto Unknown Analyte Negati ve Not Available [facility] Extended Services With [address] [place], [address], 07/02/2022 14:45:06 07/02/19 23 07/02/2022 urina lysis panel , auto Unknown Analyte Normal Not Available [facility] Extended Services With [address], [place], [address], 07/02/2022 14:45:06 07/02/19 23 07/02/2022 urina lysis panel , auto Unknown Analyte Normal 1 mg/dl Not Available [facility] Extended Services With [address] [place], [address], 07/02/2022 14:45:06 07/02/19 23 07/02/2022 urina lysis panel , auto Unknown Analyte Negati ve Not Available [facility] Extended Services With [address] [place], [address], 07/02/2022 14:45:06 07/02/19 23 07/02/2022 urina lysis panel , auto Unknown Analyte Negati ve Not Available [facility] Extended Services With [address] [place], [address], 07/02/2022 14:45:06 07/02/19 23 07/02/2022 urina lysis panel , auto Unknown Analyte Negati ve Not Available [facility] Extended Services With [address] [place], [address], 07/02/2022 14:45:06 07/02/19 23 07/02/2022 urina lysis panel , auto Unknown Analyte Negati ve Not Available [facility] Extended Services With [address] [place], [address], 07/02/2022 14:45:06 08/21/19 23 08/20/2022 urina lysis panel , auto Unknown Analyte Clean Catch Not Available [facility] Extended Services With [address] [place], [address], 08/20/2022 14:41:44 08/21/19 23 08/20/2022 urina lysis panel , auto Unknown Analyte Yellow Not Available [facility] Extended Services With [address], [place], [address], 08/20/2022 14:41:44 08/21/19 23 08/20/2022 urina lysis panel , auto Unknown Analyte Clear Not Available [facility] Extended Services With [address] [place], [address], 08/20/2022 14:41:44 08/21/1908/20/2022 urina lysis panel , auto Unknown Analyte 1.005 Not Available [facility] Extended Services With [address] [place], [address], 08/20/2022 14:41:44 08/21/19 23 08/20/2022 urina lysis panel , auto Unknown Analyte 1.003- 1.035 Not Available [facility] Extended Services With [address] [place], [address], 08/20/2022 14:41:44 08/21/19 23 08/20/2022 urina lysis panel , auto Unknown Analyte 6.5 Not Available [facility] Extended Services With [address] [place], [address], 08/20/2022 14:41:44 08/21/1908/20/2022 urina lysis panel , auto Unknown Analyte 5.0-8. 0 Not Available [facility] Extended Services With [address] [place], [address], 08/20/2022 14:41:44 08/21/19 23 08/20/2022 urina lysis panel , auto Unknown Analyte Negati ve Not Available [facility] Extended Services With [address] [place], [address], 08/20/2022 14:41:44 08/21/1908/20/2022 urina lysis panel , auto Unknown Analyte Negati ve Not Available [facility] Extended Services With [address], [place], [address], 08/20/2022 14:41:44 08/21/1908/20/2022 urina lysis panel , auto Unknown Analyte Negati ve Not Available [facility] Extended Services With [address], [place], [address], 08/20/2022 14:41:44 08/21/1908/20/2022 urina lysis panel , auto Unknown Analyte Negati ve Not Available [facility] Extended Services With [address], [place], [address], 08/20/2022 14:41:44 08/21/1908/20/2022 urina lysis panel , auto Unknown Analyte Negati ve Not Available [facility] Extended Services With [address], [place], [address], 08/20/2022 14:41:44 08/21/1908/20/2022 urina lysis panel , auto Unknown Analyte Negati ve Not Available [facility] Extended Services With [address] [place], [address], 08/20/2022 14:41:44 08/21/1908/20/2022 urina lysis panel , auto Unknown Analyte Normal Not Available [facility] Extended Services With [address] [place], [address], 08/20/2022 14:41:44 08/21/1908/20/2022 urina lysis panel , auto Unknown Analyte Normal Not Available [facility] Extended Services With [address] [place], [address], 08/20/2022 14:41:44 08/21/1908/20/2022 urina lysis panel , auto Unknown Analyte Negati ve Not Available [facility] Extended Services With [address] [place], [address], 08/20/2022 14:41:44 08/21/1908/20/2022 urina lysis panel , auto Unknown Analyte Negati ve Not Available [facility] Extended Services With [address] [place], [address], 08/20/2022 14:41:44 08/21/1908/20/2022 urina lysis panel , auto Unknown Analyte Normal Not Available [facility] Extended Services With [address] [place], [address], 08/20/2022 14:41:44 08/21/1908/20/2022 urina lysis panel , auto Unknown Analyte Normal 1 mg/dl Not Available [facility] Extended Services With [address] [place], [address], 08/20/2022 14:41:44 08/21/1908/20/2022 urina lysis panel , auto Unknown Analyte Negati ve Not Available [facility] Extended Services With [address] [place], [address], 08/20/2022 14:41:44 08/21/1908/20/2022 urina lysis panel , auto Unknown Analyte Negati ve Not Available [facility] Extended Services With [address] [place], [address], 08/20/2022 14:41:44 08/21/1908/20/2022 urina lysis panel , auto Unknown Analyte Negati ve Not Available [facility] [address], [place], [address], 08/20/2022 14:41:44 08/21/1908/20/2022 urina lysis panel , auto Unknown Analyte Negati ve Not Available [facility] Extended Services With [address], [place], [address], 08/20/2022 14:41:44 Result Notes None recorded. Procedures Surgical History Date Name Laterality Status Provider Name and Address Organization Details Recorded Time Knee arthroscopy /surgery completed Beverly Mahmood [facility] 07/02/2022 14:43:48 Imaging Results None recorded. Procedure [...] Updated DateTime 07/02/2022 154.94 cm 21.4 kg/m2 32892.94 g Beverly Mahmood [facility] 07/02/2022 14:41:26 Date Recorded Body height Body mass index (BMI) Body weight Provider Name and Address Organization Details Last Updated DateTime 08/20/2022 154.94 cm 21.4 kg/m2 81743.94 g Awa Navas [facility] 08/20/2022 14:40:59 Social History Question Answer Notes LastModified by Organizat ion Details LastModified Time Tobacco Smoking Status Never Smoker Beverly Mahmood tcio, [facility] 07/02/2022 14:43:28 What Was The Date [...] SNOMED-CT Code Diagnosis ICD10 Code Diagnosis Note [id number] QIAN ARCEO MD [facility] [address] [place] [address] ,[address] [place] [address] 07/02/2022 14:06:12 07/05/2022 04:02:59 Overactive urinary bladder 231206692 N32.81 Nocturia 061725383 R35.1 [id number] QIAN ARCEO MD [facility] [address] [place] [address],[place] [address] 08/20/2022 14:40:42 08/22/2022 04:36:15 Overactive urinary bladder 794883628 N32.81 Nocturia 399318726 R35.1 Health Concerns Section Related Observation LastModified by Organization Detai ls LastModified Time None Recorded Concern Status LastModified by Organization Details LastModified Time None Recorded Advance Directives Directive None Recorded Payers Insurance Date Sequence Insurance Name Policy Number Policy Bowen Covered Member ID Bowen Member ID Guarantor Name 08/17/2022 1 [facility] (MEDICAID REPLACEMENT - HMO) Radha Vidales [id number] Radha Vidales Notes Date Note Type Note [...] urination, not during urination. QIAN ARCEO MD [address] [place] [address], [address], [facility] 07/04/2022 15:53:03 08/20/2022 text/html 77-year-old harleen brasher [...] of concern to patient. QIAN ARCEO MD [address] [place] [address], [address], [facility] 08/21/2022 08:03:15 OBGyn Episode No OBEpisode recorded.
--- OUTSIDE RECORDS SUMMARY | 2024-11-30 10:01 | XMS_ITS | Encounter Summary ---
Author Organization [facility] Address [address] [place] [address] Care Team Providers Care Spout Tender Name Role Phone Armani Campa MD Primary Care Provider [phone] Kylee James DIESEL AUTOMOTIVE TECHNICIAN Unavailable [phone] Faustino Topete MD Unavailable [phone] Encounter Details Date Type Department Care Team (Late st Contact Info) Description 11/15/2024 Orders Only [facility] [address] [place] [address] Faustino Topete MD 800 [facility] [address] [place] [address] Metastatic malignant neuroendocrine tumor to [...] drink first t volodymyr in the morning (EYE-BURLAPPER) to steady your nerves or to get rid of a hangover? 0 12/02/2023 CAGE Questionnaire Score 0 024 Utilities Answer Date Recorded In the past 12 months has th e [employer], gas, oil, or water company threatened to [...] Description 12/05/2024 10:30 AM EDT Office Visit [facility] On[facility] [address] [place] [address] Shannon Aguero, DIESEL AUTOMOTIVE TECHNICIAN [address] [address] documented as of this encounter Visit Diagnoses [...] documented as of this encounter Care Teams Spout Tender Relationship Specialty Start Date End Date Armani Campa MD [address] [place] [address] PCP - General 10/19/22 Kylee James APRN [address] [address] Nurse Practitioner Medical Oncology 03/30/23 Faustino Topete MD [address] [address] Consulting Physician Medical Oncology 12/01/23 documented as of this encounter
--- OUTSIDE RECORDS SUMMARY | 2024-11-30 10:01 | XMS_ITS | Encounter Summary ---
Author Organization [facility] Address [address] [place] [address] Care Team Providers Care Automatic Spooler Operator Name Role Phone Armani Campa MD Primary Care Provider [phone] Kylee James APRN Unavailable [phone] Faustino Topete MD Unavailable [phone] Encounter Details Date Type Department Care Team (Late st Contact Info) Description 10/11/2024 Telephone [facility] [address] [place] [address] Faustino Topete MD 800 [facility] [address] [place] [address] Social History Tobacco Use Types [...] first t volodymyr in the morning (EYE-AIR POLLUTION INSPECTOR) to steady your nerves or to [...] optimal time of day to reach caller: [phone] Note: Please do not reply to this message. Follow-up communication and further actions as a result of this message need to be communicated with the patient directly, if the patient is not active onMyChart. If the patient is active on MyChart, they will receive notification of the communication/outcome via QuickBlox. documented in this encounter Plan of Treatment Upcoming Encounters Date Type Department Care Team (Late st Contact Info) Description 12/05/2024 10:[address] [facility] Multidisciplinary Oncology Clinic [address] [place] [address] Shannon Aguero, BUSINESS APPLICATIONS ANALYST [address] [facility] [address] [address] documented as of this encounter Visit Diagnoses Not on filedocumented in this encounter Additional Health Concerns Assessment Noted Time A fall risk assessment has been complete d for the patient 11/05/2023 9:22 AM EDT A Body Mass Index follow-up plan has been documented for the patient 12/13/2023 2:27 PM EDT documented as of this encounter Care Teams Automatic Spooler Operator Relationship Specialty Start Date End Date Armani Campa MD [address] [place] [address] PCP - General 10/19/22 Kylee James APRN [address] [address] Nurse Practitioner Medical Oncology 03/30/23 Faustino Topete MD [address] [address] Consulting Physician Medical Oncology 12/01/23 documented as of this encounter
--- OUTSIDE RECORDS SUMMARY | 2024-11-30 10:01 | XMS_ITS | Encounter Summary ---
Author Organization Address [address] [place] [address] Care Team Providers Care Medical Claims Analyst Name Role Phone Armani Campa MD Primary Care Provider [phone] Kylee James APRN Unavailable [phone] Faustino Topete MD Unavailable [phone] Encounter Details Date Type Department Care Team (Late st Contact Info) Description 10/24/2024 Telephone [facility] [address] [place] [address] Faustino Topete MD 800 [facility] [address] [place] [address] Social History Tobacco Use Types [...] drink first t volodymyr in the morning (EYE-DATABASE DEVELOPER) to steady your nerves or to get [...] and optimal time of day to reach caller:[phone] Note: Please do not reply to this message. Follow-up communication and further actions as a result of this message need to be communicated with the patient directly, if the patient is not active onMyChart. If the patient is active on MyChart, they will receive notification of the communication/outcome via Keraderm. documented in this encounter Plan of Treatment Upcoming Encounters Date Type Department Care Team (Late st Contact Info) Description 12/05/2024 10:30 AM EDT Office Visit [facility] Multidisciplinary Oncology Clinic [address] [place] [address] Shannon Aguero, SURVEILLANCE INVESTIGATOR 800 [facility] [address] [address] documented as of this encounter Visit Diagnoses Not on filedocumented in this encounter Additional Health Concerns Assessment Noted Time A fall risk assessment has been complete d for the patient 11/05/2023 9:22 AM EDT A Body Mass Index follow-up plan has been documented for the patient 12/13/2023 2:27 PM EDT documented as of this encounter Care Teams Medical Claims Analyst Relationship Specialty Start Date End Date Armani Campa MD [address] [place] [address] PCP - General 10/19/22 Kylee James APRN [address] [address] Nurse Practitioner Medical Oncology 03/30/23 Faustino Topete MD [address] [place] Rosemarie Cheung [address] [address] Consulting Physician Medical Oncology 12/01/23 documented as of this encounter
--- OUTSIDE RECORDS SUMMARY | 2024-11-30 10:01 | XMS_ITS ---
Author Organization [facility] Address [address] [place] [address] Care Team Providers Care Fast Food Services Manager Name Role Phone Armani Campa MD Primary Care Provider [phone] Kylee James APRN Unavailable [phone] Faustino Topete MD Unavailable [phone] Active Problems Problem Noted Date Diagnosed Date [...]
--- OUTSIDE RECORDS SUMMARY | 2024-11-30 10:01 | XMS_ITS | Encounter Summary ---
Author Organization [facility] Address [address] [place] [address] Care Team Providers Care Bricklayer Apprentice Name Role Phone Armani Campa MD Primary Care Provider [phone] Kylee James TURN SEWER Unavailable [phone] Faustino Topete MD Unavailable [phone] Reason for Visit * Reason Onset Date Comments Med Refill 11/21/2024 Encounter Details Date Type Department Care Team (Late st Contact Info) Description 11/21/2024 Refill [facility] [address] [place] [address] Faustino Topete MD [address] [address] Malignant neuroendocrine neoplasm (CMS/HCC) Social [...] place to sleep or slept in a group home (including now)? No 12/01/2023 CAGE ASSESSMENT [...] drink first t volodymyr in the morning (EYE-BUSINESS INSURANCE AGENT) to steady your nerves or to get [...] [facility] On[facility] [address] [place] [address] Shannon Aguero, TURN SEWER [address] Cheung [address] [address] documented as of this encounter Visit Diagnoses Diagnosis Malignant neuroendocrine neoplasm (CMS/HCC) documented in this encounter Additional Health Concerns Assessment Noted Time A fall risk assessment has been complete d for the patient 11/10/2024 2:13 PM EDT A Body Mass Index follow-up plan has been documented for the patient 12/13/2023 2:27 PM EDT documented as of this encounter Care Teams Bricklayer Apprentice Relationship Specialty Start Date End Date Armani Campa MD [address] [place] [address] PCP - General 10/19/22 Kylee James APRN [address]ung [address] [address] Nurse Practitioner Medical Oncology 03/30/23 Faustino Topete MD [address] [address] Consulting Physician Medical Oncology 12/01/23 documented as of this encounter
--- OUTSIDE RECORDS SUMMARY | 2024-11-30 10:01 | XMS_ITS | Encounter Summary ---
Author Organization [facility] Address [address] [place] [address] Care Team Providers Care Adult Live In Caregiver Name Role Phone Armani Campa MD Primary Care Provider [phone] Kylee James APRN Unavailable [phone] Faustino Ruano MD Unavailable [phone] Encounter Details Date Type Department Care Team (Late st Contact Info) Description 11/13/2024 Telephone [facility] [address] [place] [address] Faustino Ruano MD 800 [facility] [address] [place] [address] Social History Tobacco Use Types [...] place to sleep or slept in a [place] care facility (including now)? No 12/01/2023 CAGE ASSESSMENT Answer [...] drink first t volodymyr in the morning (EYE-TRANSCRIPTION) to steady your nerves or to get [...] was left IVF order sent in to [facility] and noted dr ruano's message on the serotonin level * Telephone Encounter - Leticia Bowen - 11/13/2024 12:18 PM EDT Melody not listed on pts preferred contacts, no answer from pt. * Telephone Encounter - Fransisca Jasso - 11/13/2024 11:39 AM EDT Patient Phone Message Reason for Call: Melody was worried about her serotonin level and IV fluids in her hometown [facility]- Can you Melody back? Best contact number and optimal time of day to reach caller: [phone] Note: Please do not reply to this [...] Description 12/05/2024 10:30 AM EDT Office Visit [facility] Mult[facility]isciplinary Oncology Clinic [address] [place] [address] Shannon Aguero, SHERIE 800 [facility] Rosemarie Cheung [facility] [address] [place] [address] documented as of this encounter Visit Diagnoses Not on filedocumented in this encounter Additional Health Concerns Assessment Noted Time A fall risk assessment has been complete d for the patient 11/10/2024 2:13 PM EDT A Body Mass Index follow-up plan has been documented for the patient 12/13/2023 2:27 PM EDT documented as of this encounter Care Teams Adult Live In Caregiver Relationship Specialty Start Date End Date Armani Campa MD [address] [place] [address] PCP - General 10/19/22 Kylee James APRN [address] Rosemarie Cheung [address] [address] Nurse Practitioner Medical Oncology 03/30/23 Faustino Ruano MD [address] Rosemarie Cheung [address] [address] Consulting Physician Medical Oncology 12/01/23 documented as of this encounter
--- OUTSIDE RECORDS SUMMARY | 2024-11-30 10:01 | XMS_ITS | Encounter Summary ---
Author Organization [facility] Address [address] [place] [address] Care Team Providers Care Transformer Builder Name Role Phone Armani Campa MD Primary Care Provider [phone] Kylee James APRN Unavailable [phone] Faustino Topete MD Unavailable [phone] Reason for Visit * Reason Onset Date Comments new start 11/21/2024 Encounter Details Date Type Department Care Team (Late st Contact Info) Description 11/21/2024 Telephone [facility] [address] [place] [id number] Noble Burrell, PharmD new Social History Tobacco [...] place to sleep or slept in a long term (including now)? No 12/01/2023 CAGE ASSESSMENT Answer [...] drink first t volodymyr in the morning (EYE-SPEECH LANG PATH THERAPIST) to steady your nerves or to get [...] Description 12/05/2024 10:30 AM EDT Office Visit [facility] Multidisciplinary Oncology Clinic [address] [place] [address] Shannon Aguero, TABLET MAKING MACHINE OPERATOR HELPER [address] [facility] [address] [place] [address] documented as of this encounter Visit Diagnoses Not on filedocumented in this encounter Additional Health Concerns Assessment Noted Time A fall risk assessment has been complete d for the patient 11/10/2024 2:13 PM EDT A Body Mass Index follow-up plan has been documented for the patient 12/13/2023 2:27 PM EDT documented as of this encounter Care Teams Transformer Builder Relationship Specialty Start Date End Date Armani Campa MD [address] [place] [address] PCP - General 10/19/22 Kylee James APRN [address] [address] Nurse Practitioner Medical Oncology 03/30/23 Faustino Topete MD [address] [address] Consulting Physician Medical Oncology 12/01/23 documented as of this encounter
--- OUTSIDE RECORDS SUMMARY | 2024-11-30 10:01 | XMS_ITS | Encounter Summary ---
Author Organization [facility] Address [address] [place] [address] Care Team Providers Care Artificial Flower Maker Name Role Phone Armani Campa MD Primary Care Provider [phone] Kylee James APRN Unavailable [phone] Faustino Topete MD Unavailable [phone] Encounter Details Date Type Department Care Team [...] drink first t volodymyr in the morning (EYE-SCIENTIST IMMUNOLOGY) to steady your nerves or to get [...] Description 12/05/2024 10:30 AM EDT Office Visit [facility] Multidisciplinary Oncology Clinic [address] [place] [address] Shannon Aguero, MMI TEACHER [address] [facility] [address] [place] [address] documented as of this encounter Visit Diagnoses Not on filedocumented in this encounter Additional Health Concerns Assessment Noted Time A fall risk assessment has been complete d for the patient 11/10/2024 2:13 PM EDT A Body Mass Index follow-up plan has been documented for the patient 12/13/2023 2:27 PM EDT documented as of this encounter Care Teams Artificial Flower Maker Relationship Specialty Start Date End Date Armani Campa MD [address] [place] [address] PCP - General 10/19/22 Kylee James APRN [address] [facility] [address] [place] [address] Nurse Practitioner Medical Oncology 03/30/23 Faustino Topete MD [address] [facility] [address] [place] [address] Consulting Physician Medical Oncology 12/01/23 documented as of this encounter
--- OUTSIDE RECORDS SUMMARY | 2024-11-30 10:01 | XMS_ITS | Encounter Summary ---
Author Organization [facility] Address [address] [place] [address] Care Team Providers Care Methodologist Name Role Phone Armani Campa MD Primary Care Provider [phone] Kylee James APRN Unavailable [phone] Faustino Topete MD Unavailable [phone] Encounter Details Date Type Department Care Team [...] drink first t volodymyr in the morning (EYE-WASH OIL PUMP OPERATOR) to steady your nerves or to [...] [facility] [address] [place] [address] Shannon Aguero, CARPET CLEANER [address] [facility] [address] [place] [address] documented as of this encounter Visit Diagnoses Not on filedocumented in this encounter Additional Health Concerns Assessment Noted Time A fall risk assessment has been complete d for the patient 11/05/2023 9:22 AM EDT A Body Mass Index follow-up plan has been documented for the patient 12/13/2023 2:27 PM EDT documented as of this encounter Care Teams Methodologist Relationship Specialty Start Date End Date Armani Campa MD [address] [place] [address] PCP - General 10/19/22 Kylee James APRN [address] [facility] [address] [place] [address] Nurse Practitioner Medical Oncology 03/30/23 Faustino Topete MD [address] [facility] [address] [place] [address] Consulting Physician Medical Oncology 12/01/23 documented as of this encounter
[2024-11-30 10:10] VITALS: BP 151/68; PULSE 63; RESP 18; O2SAT 99
[2024-11-30] MEDS: 0.9 % SODIUM CHLORIDE 1000ML 1,000 ML 999 ML IV (10:10)
[2024-11-30 11:20] VITALS: BP 138/72; PULSE 65; RESP 18; O2SAT 99
== END 2024-11-30 11:20 | disposition home or self-care (01) ==
LOC: INF 09:59
PROVIDERS: PCP Family Medicine; Visit Provider Internal Medicine Hematology & Oncology
DX: C7A.019 Malignant carcinoid tumor of the small intestine, unspecified portion (principal)
CPT/HCPCS: 96360; J7030

== ENCOUNTER 2024-12-08 10:50 | Outpatient (CLI) | payer MEDICARE, SELFPAY ==
--- OUTSIDE RECORDS SUMMARY | 2024-11-10 14:00 | XMS_ITS | Encounter Summary ---
Author Organization [facility] Address [address] [place] [address] Care Team Providers Care Electrical Electronics Engineers Name Role Phone Armani Campa MD Primary Care Provider [phone] Kylee James GREEN MARKETING ANALYST Unavailable [phone] Faustino Topete MD Unavailable [phone] Reason for Visit * Reason Comments Follow-up Malignant neuroendoc rine neoplasm Encounter Details Date Type Department Care Team (Late st Contact Info) Description 11/10/2024 2:00 PM EDT Office Visit [facility] Multidisciplinary Oncology Clinic [address] [place] [address] Faustino Topete MD [address] [phone] 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 No 12/01/2023 CAGE ASSESSMENT Answer [...] drink first t volodymyr in the morning (EYE-DIRECTOR OF WEB MARKETING) to steady your nerves or to get rid of a hangover? 0 12/02/2023 CAGE Questionnaire Score 0 024 Utilities Answer Date Recorded In the past 12 months has th e [employer], gas, oil, or water company threatened to shut off services in your home? No 12/01/2023 Comments No Sex and Gender Information Value Date Recorded Sex Assigned at Female 01/15/2023 1:11 PM EDT Legal Sex Female 6:44 PM EDT Gender Identity Female 01/15/2023 1:11 PM EDT Sexual Orientation Not on file documented as of this encounter Last Filed Vital Signs Vital Sign Reading Time Taken Comments Blood Pressure 152/84 11/10/2024 2:11 PM EDT Pulse 87 11/10/2024 2:11 PM EDT Temperature 37.2 C (98.9 F) 11/10/2024 2:11 PM EDT Respiratory Rate - - Oxygen Saturation 95% 11/10/2024 2:11 PM EDT Inhaled Oxygen Concentration - - Weight 51.7 kg (114 lb) 11/10/2024 2:11 PM EDT Height 162.6 cm (5' 4 ) 11/10/2024 2:11 PM EDT Body Mass Index 19.57 11/10/2024 2:11 PM EDT documented in this encounter Miscellaneous Notes * Progress Notes - Faustino Topete MD - 11/10/2024 2:00 PM EDT Images from the original note were not included. Called to discuss concerns and questions about eating with PEG tube. Lengthy discussion had. Currently in hospice. Will discuss with photoengraving proofer apprentice and surgeon who placed PEG and get back to patient sometime tomorrow or Wednesday. Division of Medical Oncology MEDICAL ONCOLOGY PROGRESS NOTE Patient Name: Radha Vidales Date of : 1945 79 y.o. 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 Vidales presents today with her son for follow-up and review of scans. 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 She has been having intermittent, non-frequent episodes of mid-epigastric pain and burning. No associated N/V/D/C with these episodes. Additionally, no chronic N/V/D/C. Has had a negative GI workup. Does note uncontrolled GERD with daily Pepcid and frequent TUMS use. Has been having unintentional weight loss. Denies CP, palpitations, dizziness, headache, SOA, LE edema, or any other acute complaints. 11/10/2022: Ms. Vidales is seen today with her son via for follow-up and review of scans. Ms. Vidalesis experiencing anorexia but no acute abd pain episodes but continued intermittent mid-epigastric pain and burning but not requiring medical attention as there has been no associated N/V/D/C. Unintentional weight loss continues. 12/29/2022: Ms. Vidales is seen today with her son and daughter in the clinic for follow-up. Just met with Dr. Fierro. They do not wish to pursue surgery at this time and would like to see what other options they have. Ms. Vidales is experiencing anorexia, increasing intermittent mid-epigastric pain and burning abdominal pain, and now has nausea and vomiting. No diarrhea or constipation. Unintentional weight loss continues. Denies flushing, D/C, CP, palpitations, dizziness, headache, SOA, LE edema, or any other acute complaints. 12/29/2022: Ms. Vidales is seen today with her son and daughter in the clinic for early follow-up per her request for abdominal and back pain, diarrhea, and overall feeling of malaise. She has become progressively weaker and unsteady on her feet. She isn't able to eat a lot of food as it causes severe burning mid epigastric abdominal pain that sometimes radiates around her right side to her back. Thetriggers can't be identified as she can eat something one day with no problem and then a few days later it causes extreme pain. The pain is relieved by self-induced vomiting. Dry mouth. Nothing tastes well. 3-4 mo - medicine: biotene and sour candies Ringing/crickets in ears- worsening. Finger test cant hear out of right ear. 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 Vidales is seen in the clinic with her son and DIL to review post- hosp course. She is now able to eat w/o emesis and has gained several pounds. She is active and notes that the rash is improved and only over her BLEs. 02/23/23: Ms. Vidales presents via TH after starting octreotide. Takes three shots as directed when her diarrhea starts and has relief for up to 2.5 days. Pain is gone. More of an appetite. Has gained some weight. Started cleaning about two weeks. Pruritic rash continues and is transient. Now on abdomen. No N/V/D/C. Still considering PRRT and is on the list to be treated. 03/30/23: Ms. Vidales presents via TH after being on octreotide for 3 months. She is feeling great. 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 No pain. No flushing. No rash. Only complaint is of diarrhea, worst being 4-5 times/day. Takes octreotide with these episodes and it helps for about a day, so currently taking octreotide TID every other day. Discussed taking it daily to see if this helps control diarrhea better. Wants to postpone scans until after the new year. Doing well otherwise and denies fever, chills, night sweats, chest pain, palpitations, dizziness, shortness of breath, headaches, cough, nausea, emesis, constipation, abdominal pain, abdominal cramping, bloating, gas, tarry stools, BRBPR, dysuria, LE swelling, weakness, change in appetite, unintentional weight loss or any other acute complaints. 06/11/23: Ms. Vidales is seen in clinic with 2 family members for lab and scan reviews. Continued diarrhea is her major complaint for which she has been to local ERs recently. She is maintaining her wt while continuing to work. She denies any N/V/bleeding or pain, 06/29/23: Ms. Vidales presents via TH today to follow up on changes made after last visit. No longer has diarrhea and hasn't used any octreotide since that injection. No abdominal pain or cramping, N/V,or change in fatigue. Eating and drinking good with some weight gain. Has stopped all but one job because the pain and weakness in her lower extremity are causing her concern. Usually bilateral, but sometimes the right leg does bother her more than her left. Feels achy and cramping. Walking and sitting on a hard chair elicit the pain and cramping. Position change helps some. Doesn't bother her atnight. Hasn't taken anything additional for the pain, but does take daily meloxicam which doesn't se em to help any. She has no swelling, no redness, doesn't bother her at rest and sleeps well at night, no loss of bowel or bladder function, no twitching. She is worried (in general but also about hereye sight as she just had eye surgery and eyes haven't recovered) and thinks her nerves might be contributing. Doesn't take anything for mood. No history of back injury, although last CT scan of the abd/pelvis mentioned stable T11 deformity as well as degenerative changes of the spine. 07/27/23: Ms. Vidales presents via today to follow up on dotaPET scan results. Her lower extremity weakness has improved slightly and she has had no more diarrhea or nausea on monthly lanreotide. Shehas good energy though she is not going to go back cleaning houses at this time. She denies any newsymptoms. 11/05/23: Presents today with her son. Diarrhea had been controlled on lanreotide, however after holding for a month or two, and now with two months of doses, has not regained control of diarrhea. Has been using 200 mcg prn octreotide two times a day and still having 10 or more watery stools on some days. The last couple of shots have only seemed to help for a week or two. In general she feels morefatigued, urine is tea colored and does not drink enough water, blake on days with significant diarrhea. Having leg muscle cramps. Taking 1 po K/day. No N/V. Started zoloft at 25 mg per PCP, primarily for anxiety, then increased to 50mg, but doesn't seem zane helping as she is having a lot of anxiety in the mornings. Did not take her BP meds today prior to coming, so BP is elevated in clinic today, however she denies CP, palpitations, dizziness, headaches, vision changes, SOA. 11/10/2024: Ms. Vidales is seen in the clinic with her son. She was D/C 'd from hospice 2 wks ago. Shewas not expected to live post hosp D/C but began to tolerating oral food and eventually the feedingtube was removed 2 mos ago. She continues to have diarrhea controlled with lomotil/prn subcu feb (which she takes about 1 times/wk). She is back driving and taking walks. She goes to movies with her twin sister. She is maintaining her wt (had lost down to 99#'s) despite averaging 6 stools/day- someof which can be watery. She denies any pain or cramping or bleeding. She feels like her legs are still weak. HPI History of Present Illness: 08/14/20 Ms. Vidales is a 79 y.o.WWF with identical twin with PMH of GERD, osteoporosis, OA, and HTN, who presents to clinic for evaluation. Per the patient, she was recently admitted earlier in the year for abdominal pain. 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 She denies any flushing, night sweats or any new change in symptoms beyondabdominal pain. Her pain has now resolved and may have had a etiology. She is reasonably healthyand lives independently. She denies any cardiac or pulmonary issues and does not take any blood thinners. May 2020 - admitted for abdominal pain, CT scan noted mesenteric mass ALLERGIES: No Known Allergies Past Medical History: Past Medical History: Diagnosis Date Heartburn Heartburn Hypertension Neuroendocrine tumor Unspecified osteoarthritis, unspecified site Arthritis Past Surgical History: Past Surgical History: Procedure Laterality Date CATARACT EXTRACTION TOTAL KNEE ARTHROPLASTY Family History: Family History Problem Relation Name Age of Onset Diabetes Mother Social History: Social History Socioeconomic History Marital status: Spouse name: Not on file Number of children: Not on file Years of education: Not on file Highest education level: Not on file Occupational History Not on file Tobacco Use Smoking status: Never Smokeless tobacco: Never Substance and Sexual Activity Alcohol use: Never Drug use: Never Sexual activity: Not on file Other Topics Concern Not on file Social History Narrative Not on file Social Drivers of Health Financial Resource Strain: Not on file Food Insecurity: No Food Insecurity (12/01/2023) Hunger Vital Sign Worried About Running Out of Food in the Last Year: Never true Ran Out of Food in the Last Year: Never true Transportation Needs: No Transportation Needs (12/01/2023) PRAPARE - Transportation Lack of Transportation (Medical): No Lack of Transportation (Non-Medical): No Physical Activity: Not on file Stress: Not on file Social Connections: Unknown (03/08/2023) Received from [facility] Family and Community Support Help with Day-to-Day Activities: Not on file Lonely or Isolated: Not on file Intimate Partner Violence: Not At Risk (12/01/2023) Humiliation, Afraid, Rape, and Kick questionnaire Fear of Current or Ex-Partner: No Emotionally Abused: No Physically Abused: No Sexually Abused: No Housing Stability: Unknown (12/01/2023) Housing Stability Vital Sign Unable to Pay for Housing in the Last Year: No Number of Places Lived in the Last Year: Not on file Unstable Housing in the Last Year: No Current Outpatient Medications Medication Instructions alendronate (FOSAMAX) 70 mg, Oral, Weekly, amLODIPine (NORVASC) 10 mg, Oral, Every morning Calcium Carb-Cholecalciferol (CALCIUM 1000 + D PO) Cyanocobalamin (VITAMIN B-12 PO) 1 each, Oral, Daily diphenoxylate-atropine (Lomotil) 2.5-0.025 MG tablet 1 tablet, Oral, 4 times daily PRN loperamide (IMODIUM A-D) 2 mg, Oral, Every 3 hours PRN, Do not exceed 8 tablets in a day. Alternatewith lomotil. loratadine (CLARITIN) 10 mg, Oral, Every morning meloxicam (MOBIC) 15 mg, Oral, EVERY MORNING PRN octreotide (SANDOSTATIN) 200 mcg, Subcutaneous, 3 times daily PRN omeprazole (PriLOSEC) [address] capsule TAKE 1 CAPSULE EVERY DAY 1 HOUR PRIOR TO MEAL (DO NOT CRUSH OR CHEW. SUBSTITUTED FOR PRILOSEC) ROS: A comprehensive 14 point review of systems was performed and the pertinent positives have been documented in the HPI section of this note. PAST MEDICAL HISTORY/SOCIAL HISTORY/FAMILY HISTORY: Reviewed by me and unchanged from my prior documentation done on 11/05/23. Objective Visit Vitals OB Status Postmenopausal Smoking Status Never 165/89: pt did not take her BP medications today Performance Status ECOG 1 GENERAL: Sitting comfortably in chair, thin, NAD SKIN: warm, dry, and pink. No rashes or lesions HEENT: NCAT; PERRLA/EOMI, anicteric; mucous membranes moist and intact, no oral lesions NECK: neck supple, no cervical lymphadenopathy LUNGS: Symmetric expansion, non-labored, CTAB, no crackles/wheezes/rhonchi HEART: RRR, no MGR, peripheral pulses intact EXTREMITIES: No cyanosis or clubbing, no peripheral edema ABDOMEN: soft, non-tender, non-distended, normal bowel sounds MUSCULOSKELETAL: moving all extremities without issue, strength intact, no focal tenderness or deformity NEURO: alert and oriented x3, no focal deficits, no localizing deficits of strength, sensation, or mentation PSYCH: appropriate, cooperative, normal mood and thought content Office Visit on 11/10/2024 Component Date Value Ref Range Status WBC Count 11/10/2024 6.30 3.70 - 10.30 10*3/uL Final RBC Count 11/10/2024 4.67 3.90 - 5.20 10*6/uL Final HGB 11/10/2024 11.7 11.2 - 15.7 g/dL Final HCT 11/10/2024 37.8 34.0 - 45.0 % Final Platelet Count 11/10/2024 138 (L) 155 - 369 10*3/uL Final MCV 11/10/2024 81 79 - 98 fL Final MCH 11/10/2024 25.1 (L) 26.0 - 32.0 pg Final MCHC 11/10/2024 31.0 30.7 - 35.5 g/dL Final RDW 11/10/2024 16.1 (H) 11.5 - 14.5 % Final MPV 11/10/2024 Final nRBC 11/10/2024 0.0 <=0.0 per 100 WBCs Final Differential Type 11/10/2024 Automated Final Neutrophils % 11/10/2024 75 % Final Lymphocytes % 11/10/2024 15 % Final Monocytes % 11/10/2024 9 % Final Eosinophils % 11/10/2024 1 % Final Basophils % 11/10/2024 0 % Final Immature Granulocytes % 11/10/2024 0 % Final Neutrophils Absolute 11/10/2024 4.69 1.60 - 6.10 10*3/uL Final Lymphocytes Absolute 11/10/2024 0.95 (L) 1.20 - 3.90 10*3/uL Final Monocytes Absolute 11/10/2024 0.54 0.30 - 0.90 10*3/uL Final Eosinophils Absolute 11/10/2024 0.08 0.00 - 0.50 10*3/uL Final Basophils Absolute 11/10/2024 0.02 0.00 - 0.10 10*3/uL Final Immature Granulocytes Absolute 11/10/2024 0.02 0.00 - 0.06 10*3/uL Final Glucose, Plasma 11/10/2024 92 74 - 99 mg/dL Final BUN, Plasma 11/10/2024 14 8 - 23 mg/dL Final Creatinine, Plasma 11/10/2024 0.57 (L) 0.60 - 1.10 mg/dL Final BUN/Creatinine Ratio 11/10/2024 25 Final Sodium, Plasma 11/10/2024 141 136 - 145 mmol/L Final Potassium, Plasma 11/10/2024 3.4 (L) 3.6 - 4.9 mmol/L Final Chloride, Plasma 11/10/2024 106 97 - 107 mmol/L Final CO2, Plasma 11/10/2024 21 (L) 22 - 29 mmol/L Final Anion Gap 11/10/2024 14 6 - 16 mmol/L Final Total Calcium, Plasma 11/10/2024 8.6 (L) 8.9 - 10.2 mg/dL Final Total Protein 11/10/2024 7.4 6.3 - 7.9 g/dL Final Albumin, Plasma 11/10/2024 3.8 3.5 - 5.2 g/dL Final AST, Plasma 11/10/2024 36 (H) 10 - 35 U/L Final ALT, Plasma 11/10/2024 20 10 - 35 U/L Final Alkaline Phosphatase, Plasma 11/10/2024 98 46 - 142 U/L Final Total Bilirubin, Plasma 11/10/2024 0.3 0.2 - 1.1 mg/dL Final eGFRcr 11/10/2024 91.4 mL/min/1.73m*2 Final SEROTONIN 11/10/2024 1449 (H) 50 - 220 ng/mL Final Magnesium, Plasma 11/10/2024 1.5 (L) 1.9 - 2.4 mg/dL Final - I counseled the patient regarding risk and benefits of the current plan of management as outlinedabove. - I have reviewed the supportive records from other providers including, but not limited to the referring physician, PCP and other consultants and have interpreted these records in light of the current diagnosis and plan. - I have reviewed hepatic, renal as well as bone marrow function in relationship to this patient's ability to tolerate systemic cancer treatment. The individualization of drug dosing and schedule is based on their individual liver, renal and bone marrow function at the time of treatment. - Patient's and son's questions were all answered, seemingly, to their satisfaction. Should new symptoms and/or signs and/or additional questions develop, they will contact us. I spent 30 minutes ryas-nc-tdid with the patient and ane-izay-yx-face time, over half in discussionof the diagnosis and the importance of compliance with the treatment plan. 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) CBC WITH AUTO DIFFERENTIAL Routine 11/10/2024 4:02 PM EDT 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) SEROTONIN, SERUM(SO) Routine 11/10/2024 4:02 PM EDT 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) MAGNESIUM, PLASMA Routine 11/10/2024 4:0 2 PM EDT 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) COMPREHENSIVE METABOLIC PANEL, PLASMA Routine 11/10/2024 4:02 PM EDT 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 Yes 11/23/2024 4:20 PM EDT [facility] 5-Hydroxyindole acetic Acid (HIAA), Plasma 58(H) <=22 ng/ml 11/23/2024 4:20 PM EDT [facility] ([facility]) Blood Venous blood specimen / Unknown Venipuncture / Unknown 11/10/2024 4:02 PM EDT 11/10/2024 4:12 PM EDT Narrative [facility] ([facility]) - 11/23/2024 4:20 PM EDT This GCMS assay was developed and its performance characteristics determined by [facility]. It has not been cleared or approved by the FDA and such approval or clearance is not required at this time. Values obtained with different methods, different laboratories or with kits cannot be used interchangeably with the results on this report. The results cannot be interpreted as absolute evidence of the presence or absence of malignant disease. Performed By: [facility] [address] [place] [address]<lb> us Faustino Topete MD LAB BLOOD ORDERABLES Final R esult [facility] ([facility]) [facility] [address] [place] [address] * (ABNORMAL) Chromogranin A (11/10/2024 4:02 PM EDT) CHROMOGRANIN A 1622(H) <93 ng/mL 11/14/2024 6:56 PM EDT [facility] ([facility]) Comment: Impaired renal or hepatic function or treatment with proton pump inhibitors may result in artifactual elevations of Chromogranin A. ADDITIONAL INFORMATION The testing method is a homogeneous time-resolved immunofluorescent assay manufactured by [employer] and performed on the Trial[employer] Kryptor Compact Plus. Values obtained with different assay methods or kits may be different and cannot be used interchangeably. Test results cannot be interpreted as absolute evidence for the presence or absence of malignant disease. In some immunoassays, the presence of unusually high concentrations of analyte may result in a high-dose hook effect. This may result in a lower or even normal measured analyte concentration. If the reported result is inconsistent with the clinical presentation, the laboratory should be alerted for troubleshooting. For diagnostic purposes, these immunoassay results should always be assessed in conjunction with the patients medical history, clinical examination and other findings. Test Performed by: [facility] [address] [place] [address] Security Flex Officer: David Hawkins Ph.D.; CLIA# [id number] Blood Venous blood specimen / Unknown Venipuncture / Unknown 11/10/2024 4:02 PM EDT 11/10/2024 4:19 PM EDT Faustino Topete MD LAB BLOOD ORDERABLES Final R esult Performing Organization Address [facility] Co de Phone Number [facility] ([facility]) * (ABNORMAL) Serotonin, Serum (11/10/2024 4:02 PM EDT) SEROTONIN 1449(H) 50 - 220 ng/mL 11/13/2024 6:02 AM EDT [facility] ([facility]) Serum Venous blood specimen / Unknown 11/10/2024 4:02 PM EDT 11/10/2024 4:18 PM EDT Narrative [facility] ([facility]) - 11/13/2024 6:02 AM EDT TEST INFORMATION: Serotonin, Serum This test was developed and its performance characteristics determined by [facility]. It has not been cleared or approved by the US Food and Drug Administration. This test was performed in a CLIA certified laboratory and is intended for clinical purposes. Performed By: [facility] [address] [place] [address] [address] Porter: Kurt Borges MD, PhD CLIA Number: [id number] Faustino Topete MD LAB BLOOD ORDERABLES Final R esult Performing Organization Address [facility] Co de Phone Number [facility] ([facility]) [address] [place] [address] * (ABNORMAL) Comprehensive metabolic panel (11/10/2024 4:02 PM EDT) Glucose, Plasma 92 74 - 99 mg/dL 11/10/2024 4:51 PM EDT [facility] BUN, Plasma 14 8 - 23 mg/dL 11/10/2024 4:51 PM EDT [facility] Creatinine, Plasma 0.57(L) 0.60 - 1.10 mg/dL 11/10/2024 4:51 PM EDT [facility] BUN/Creatinine Ratio 25 11/10/2024 4:51 PM EDT [facility] Sodium, Plasma 141 136 - 145 mmol/L 11/10/2024 4:51 PM EDT [facility] Potassium, Plasma 3.4(L) 3.6 - 4.9 mmol/L 11/10/2024 4:51 PM EDT [facility] Chloride, Plasma 106 97 - 107 mmol/L 11/10/2024 4:51 PM EDT [facility] CO2, Plasma 21(L) 22 - 29 mmol/L 11/10/2024 4:51 PM EDT [facility] Anion Gap 14 6 - 16 mmol/L 11/10/2024 4:51 PM EDT [facility] Total Calcium, Plasma 8.6(L) 8.9 - 10.2 mg/dL 11/10/2024 4:51 PM EDT [facility] Total Protein 7.4 6.3 - 7.9 g/dL 11/10/2024 4:51 PM EDT [facility] Albumin, Plasma 3.8 3.5 - 5.2 g/dL 11/10/2024 4:51 PM EDT [facility] AST, Plasma 36(H) 10 - 35 U/L 11/10/2024 4:51 PM EDT [facility] ALT, Plasma 20 10 - 35 U/L 11/10/2024 4:51 PM EDT [facility] Alkaline Phosphatase, Plasma 98 46 - 142 U/L 11/10/2024 4:51 PM EDT [facility] Total Bilirubin, Plasma 0.3 0.2 - 1.1 mg/dL 11/10/2024 4:51 PM EDT [facility] eGFRcr 91.4 mL/min/1.7 3m*2 11/10/2024 4:51 PM EDT [facility] Comment:Reported eGFRcr in m L/min/1.73m2 is based the CKD-EPI 2020 equation that does not use a race coefficient. Blood Venous blood specimen / Unknown Venipuncture / Unknown 11/10/2024 4:02 PM EDT 11/10/2024 4:18 PM EDT us Faustino Topete MD LAB BLOOD ORDERABLES Final R esult [facility] [address] [place] [address] * (ABNORMAL) CBC and differential (11/10/2024 4:02 PM EDT) WBC Count 6.30 3.70 - 10.30 10*3/uL LAB HEMATOLOGY METHOD 11/10/2024 5:55 PM EDT [facility] RBC Count 4.67 3.90 - 5.20 10*6/uL LAB HEMATOLOGY METHOD 11/10/2024 5:55 PM EDT [facility] HGB 11.7 11.2 - 15.7 g/dL LAB HEMATOLOGY METHOD 11/10/2024 5:55 PM EDT [facility] HCT 37.8 34.0 - 45.0 % LAB HEMATOLOGY METHOD 11/10/2024 5:55 PM EDT [facility] Platelet Count 138(L) 155 - 369 10*3/uL LAB HEMATOLOGY METHOD 11/10/2024 5:55 PM EDT [facility] MCV 81 79 - 98 fL LAB HEMATOLOGY METHOD 11/10/2024 5:55 PM EDT [facility] MCH 25.1(L) 26.0 - 32.0 pg LAB HEMATOLOGY METHOD 11/10/2024 5:55 PM EDT [facility] MCHC 31.0 30.7 - 35.5 g/dL LAB HEMATOLOGY METHOD 11/10/2024 5:55 PM EDT [facility] RDW 16.1(H) 11.5 - 14.5 % LAB HEMATOLOGY METHOD 11/10/2024 5:55 PM EDT [facility] MPV LAB HEMATOLOGY METHOD 11/10/2024 5:55 PM EDT [facility] Comment:Not Measured nRBC 0.0 <=0.0 per 100 WBCs LAB HEMATOLOGY METHOD 11/10/2024 5:55 PM EDT [facility] Differential Type Automated LAB HEMATOLOGY METHOD 11/10/2024 5:55 PM EDT [facility] Neutrophils % 75 % LAB HEMATOLOGY METHOD 11/10/2024 5:55 PM EDT [facility] Lymphocytes % 15 % LAB HEMATOLOGY METHOD 11/10/2024 5:55 PM EDT [facility] Monocytes % 9 % LAB HEMATOLOGY METHOD 11/10/2024 5:55 PM EDT [facility] Eosinophils % 1 % LAB HEMATOLOGY METHOD 11/10/2024 5:55 PM EDT [facility] Basophils % 0 % LAB HEMATOLOGY METHOD 11/10/2024 5:55 PM EDT [facility] Immature Granulocytes % 0 % LAB HEMATOLOGY METHOD 11/10/2024 5:55 PM EDT [facility] Neutrophils Absolute 4.69 1.60 - 6.10 10*3/uL LAB HEMATOLOGY METHOD 11/10/2024 5:55 PM EDT [facility] Lymphocytes Absolute 0.95(L) 1.20 - 3.90 10*3/uL LAB HEMATOLOGY METHOD 11/10/2024 5:55 PM EDT [facility] Monocytes Absolute 0.54 0.30 - 0.90 10*3/uL LAB HEMATOLOGY METHOD 11/10/2024 5:55 PM EDT [facility] Eosinophils Absolute 0.08 0.00 - 0.50 10*3/uL LAB HEMATOLOGY METHOD 11/10/2024 5:55 PM EDT [facility] Basophils Absolute 0.02 0.00 - 0.10 10*3/uL LAB HEMATOLOGY METHOD 11/10/2024 5:55 PM EDT [facility] Immature Granulocytes Absolute 0.02 0.00 - 0.06 10*3/uL LAB HEMATOLOGY METHOD 11/10/2024 5:55 PM EDT [facility] Blood Venous blood specimen / Unknown Venipuncture / Unknown 11/10/2024 4:02 PM EDT 11/10/2024 4:27 PM EDT [facility] - 11/10/2024 5:55 PM EDT Therapeutic decision making should be based on absolute values, rather than percentages. 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 Diarrhea, unspecified type documented in this encounter Additional Health Concerns Assessment Noted Time A fall risk assessment has been complete d for the patient 11/10/2024 2:13 PM EDT A Body Mass Index follow-up plan has been documented for the patient 12/13/2023 2:27 PM EDT documented as of this encounter Care Teams Electrical Electronics Engineers Relationship Specialty Start Date End Date Armani Campa MD [address] [place] [address] PCP - General 10/19/22 Kylee James APRN [address] [place] [address] Nurse Practitioner Medical Oncology 03/30/23 aFustino Topete MD [address] [address] Consulting Physician Medical Oncology 12/01/23 documented as of this encounter
--- OUTSIDE RECORDS SUMMARY | 2024-12-05 10:30 | XMS_ITS | Encounter Summary ---
Author Organization [facility] Address [address] [place] [address] Care Team Providers Care Warp Clamper Name Role Phone Armani Campa MD Primary Care Provider [phone] Kylee James WARBLE SAW OPERATOR Unavailable [phone] Faustino Topete MD Unavailable Reason for Visit * Reason Comments Routine Follow-up Encounter Details Date Type Department Care Team (Late st Contact Info) Description 12/05/2024 10:30 AM EDT Office Visit [facility] Multidisciplinary Oncology Clinic [address] [place] [address] Shannon Aguero, WARBLE SAW OPERATOR 800 [facility] [address] [place] [address] Metastatic malignant neuroendocrine tumor to [...] drink first t volodymyr in the morning (EYE-MEDICAL BILLING CLERK) to steady your nerves or to [...] prn. She continues to get IVFs at [facility] once a week. She is staking [...] to get IVF's once a week at [facility] in [place] - She prefers not to get scanned at this time - Continue KCL 20 meq daily Telehealth Statement Patient Verification Patient identity has been confirmed using name and date of ? Yes Authorizations and Agreements/Telemedicine Consent sent and consent confirmed? Yes Patient Location: Home/Other Patient confirms they are physically located in [place]? Yes If the patient is not physically located in [place], the provider has confirmed with [facility] thatthe provider is authorized to provide services in patient's stated location? N/A Provider Location: [facility] facility Audio and video or audio [...] in patients with cancer. Shannon Aguero, MERCEDES, WARBLE SAW OPERATOR, WELT TRIMMING MACHINE OPERATOR-C Division of Medical Oncology documented [...] documented as of this encounter Care Teams Warp Clamper Relationship Specialty Start Date End Date Armani Campa MD [address] [place] [address] PCP - General 10/19/22 Kylee James APRN [address] [place] Rosemarie Cheung [address] [address] Nurse Practitioner Medical Oncology 03/30/23 Faustino Topete MD [address] [facility] [address] [place] [address] Consulting Physician Medical Oncology 12/01/23 documented as of this encounter
--- OUTSIDE RECORDS SUMMARY | 2024-12-08 10:51 | XMS_ITS ---
Author Name Auto Generated, Auto Generated Organization [facility] Address [address] [place] [address] Phone [phone] Care Team Providers Care Vice President Quality Name Role Phone Altagraciajane López Unavailable [phone] Lucinda Schumacher Unavailable Armani Campa Unavailable [phone] Functional Status No Results Mental Status No [...] HTN WedMay 01 00:00:00 EST 2023October 07 00:00:00 EDT 2024 octreotide acetate 200 mcg/mL injection [...] Vital Sign Measurement Date Systolic blood pressure 140 mm[Hg] WedMay 17 08:30:00 EST 2023 Diastolic blood pressure 76 mm[Hg] WedMay 17 08:30:00 EST 2023 Respiratory rate 16 /min WedMay 17 08:3 0:00 EST 2023 Heart rate 78 /min WedMay 17 08:30 :00 EST 2023 Body weight 112 [lb_av] WedMay 12 07:00 :00 EST 2023 Systolic blood pressure 160 mm[Hg] WedMay 12 07:00:00 EST 2023 Diastolic blood pressure 84 mm[Hg] WedMay 12 07:00:00 EST 2023 Respiratory rate 20 /min WedMay 12 07:0 0:00 EST 2023 Heart rate 76 /min WedMay 12 07:00 :00 EST 2023 Systolic blood pressure 108 mm[Hg] WedDec 29 05:30:00 EDT 2023 Diastolic blood pressure 64 mm[Hg] WedDec 29 05:30:00 EDT 2023 Respiratory rate 18 /min WedDec 29 05:3 0:00 EDT 2023 Heart rate 80 /min WedDec 29 05:30 :00 EDT 2023 Respiratory rate 18 /min WedDec 27 05:3 5:00 EDT 2023 Systolic blood pressure 126 mm[Hg] WedApr 25 06:45:00 EST 2023 Diastolic blood pressure 74 mm[Hg] WedApr 25 06:45:00 EST 2023 Respiratory rate 16 /min WedApr 25 06:4 5:00 EST 2023 Oxygen saturation in Arteria l blood by Pulse oximetry 97 % WedApr 25 06:45:00 EST 2023 Heart rate 88 /min WedApr 25 06:45 :00 EST 2023 Systolic blood pressure 126 mm[Hg] WedAug 22 09:15:00 EDT 2024 Diastolic blood pressure 80 mm[Hg] WedAug 22 09:15:00 EDT 2024 Respiratory rate 18 /min WedAug 22 09:1 5:00 EDT 2024 Heart rate 76 /min WedAug 22 09:15 :00 EDT 2024 Systolic blood pressure 130 mm[Hg] WedMar 06 09:20:00 EDT 2023 Diastolic blood pressure 90 mm[Hg] WedMar 06 09:20:00 EDT 2023 Respiratory rate 16 /min WedMar 06 09:2 0:00 EDT 2023 Heart rate 70 /min WedMar 06 09:20 :00 EDT 2023 Systolic blood pressure 180 mm[Hg] [facility] 12 09:30:00 EDT 2023 Diastolic blood pressure 90 mm[Hg] [facility] 09:30:00 EDT 2023 Respiratory rate 18 /min [facility] 09:3 0:00 EDT 2023 Systolic blood pressure 136 mm[Hg] WedJan 10 07:10:00 EDT 2023 Diastolic blood pressure 70 mm[Hg] WedJan 10 07:10:00 EDT 2023 Respiratory rate 20 /min WedJan 10 07:1 0:00 EDT 2023 Heart rate 80 /min WedJan 10 07:10 :00 EDT 2023 Systolic blood pressure 138 mm[Hg] WedJan 24 08:10:00 EDT 2023 Diastolic blood pressure 78 mm[Hg] WedJan 24 08:10:00 EDT 2023 Respiratory rate 20 /min WedJan 24 08:1 0:00 EDT 2023 Heart rate 80 /min WedJan 24 08:10 :00 EDT 2023 Body weight 113 [lb_av] WedAug 07 08:00 :00 EDT 2024 Systolic blood pressure 140 mm[Hg] WedAug 07 08:00:00 EDT 2024 Diastolic blood pressure 90 mm[Hg] WedAug 07 08:00:00 EDT 2024 Respiratory rate 20 /min WedAug 07 08:0 0:00 EDT 2024 Heart rate 96 /min WedAug 07 08:00 :00 EDT 2024 Systolic blood pressure 136 mm[Hg] WedJul 26 07:30:00 EST 2024 Diastolic blood pressure 80 mm[Hg] WedJul 26 07:30:00 EST 2024 Respiratory rate 20 /min WedJul 26 07:3 0:00 EST 2024 Heart rate 88 /min WedJul 26 07:30 :00 EST 2024 Systolic blood pressure 130 mm[Hg] WedMar 28 09:30:00 EDT 2023 Diastolic blood pressure 80 mm[Hg] WedMar 28 09:30:00 EDT 2023 Respiratory rate 16 /min WedMar 28 09:3 0:00 EDT 2023 Systolic blood pressure 130 mm[Hg] WedJul 21 06:04:00 EST 2024 Diastolic blood pressure 80 mm[Hg] WedJul 21 06:04:00 EST 2024 Respiratory rate 16 /min WedJul 21 06:0 4:00 EST 2024 Heart rate 76 /min WedJul 21 06:04 :00 EST 2024 Systolic blood pressure 118 mm[Hg] WedJan 17 06:35:00 EDT 2023 Diastolic blood pressure 70 mm[Hg] WedJan 17 06:35:00 EDT 2023 Respiratory rate 20 /min WedJan 17 06:3 5:00 EDT 2023 Heart rate 56 /min WedJan 17 06:35 :00 EDT 2023 Systolic blood pressure 130 mm[Hg] WedMay 29 05:35:00 EST 2023 Diastolic blood pressure 64 mm[Hg] WedMay 29 05:35:00 EST 2023 Respiratory rate 20 /min WedMay 29 05:3 5:00 EST 2023 Heart rate 72 /min WedMay 29 05:35 :00 EST 2023 Body weight 114 [lb_av] WedJul 12 09:45 :00 EST 2024 Systolic blood pressure 150 mm[Hg] Wedb 09:45:00 EST 2024 Diastolic blood pressure 80 mm[Hg] WedJul 12 09:45:00 EST 2024 Respiratory rate 20 /min WedJul 12 09:4 5:00 EST 2024 Heart rate 80 /min WedJul 12 09:45 :00 EST 2024 Systolic blood pressure 140 mm[Hg] WedApr 05 08:00:00 EST 2023 Diastolic blood pressure 90 mm[Hg] WedApr 05 08:00:00 EST 2023 Respiratory rate 16 /min WedApr 05 08:0 0:00 EST 2023 Heart rate 67 /min WedApr 05 08:00 :00 EST 2023 Body weight 113.4 [lb_av] WedJun 09 08:00 :00 EST 2024 Systolic blood pressure 150 mm[Hg] WedJun 09 08:00:00 EST 2024 Diastolic blood pressure 90 mm[Hg] WedJun 09 08:00:00 EST 2024 Respiratory rate 20 /min WedJun 09 08:0 0:00 EST 2024 Heart rate 80 /min WedJun 09 08:00 :00 EST 2024 Systolic blood pressure 160 mm[Hg] WedJun 14 08:30:00 EST 2024 Diastolic blood pressure 90 mm[Hg] WedJun 14 08:30:00 EST 2024 Respiratory rate 20 /min WedJun 14 08:3 0:00 EST 2024 Heart rate 76 /min WedJun 14 08:30 :00 EST 2024 Systolic blood pressure 148 mm[Hg] Wed Jan 18 07:15:00 EDT 2023 Diastolic blood pressure 88 mm[Hg] Wed 18 07:15:00 EDT 2023 Respiratory rate 16 /min Wed 18 07:1 5:00 EDT 2023 Systolic blood pressure 138 mm[Hg] Ailyn Aug 17 10:16:00 EDT 2024 Diastolic blood pressure 70 mm[Hg] Ailyn Aug 17 10:16:00 EDT 2024 Respiratory rate 20 /min Ailyn Aug 17 10:1 6:00 EDT 2024 Heart rate 80 /min Ailyn Aug 17 10:16 :00 EDT 2024 Systolic blood pressure 130 mm[Hg] WedMar 22 07:06:00 EDT 2023 Diastolic blood pressure 80 mm[Hg] WedMar 22 07:06:00 EDT 2023 Heart rate 92 /min WedMar 22 07:06 :00 EDT 2023 Systolic blood pressure 112 mm[Hg] WedDec 16 08:30:00 EDT 2023 Diastolic blood pressure 68 mm[Hg] WedDec 16 08:30:00 EDT 2024 Respiratory rate 16 /min WedDec 16 08:3 0:00 EDT 2023 Heart rate 80 /min WedDec 16 08:30 :00 EDT 2023 Systolic blood pressure 162 mm[Hg] WedFeb 01 06:50:00 EDT 2023 Diastolic blood pressure 76 mm[Hg] WedFeb 01 06:50:00 EDT 2023 Respiratory rate 20 /min Wed Feb 01 06:5 0:00 EDT 2023 Heart rate 80 /min Wed Feb 01 06:50 :00 EDT 2023 Systolic blood pressure 128 mm[Hg] WedJun 23 06:40:00 EST 2024 Diastolic blood pressure 80 mm[Hg] WedJun 23 06:40:00 EST 2024 Respiratory rate 16 /min WedJun 23 06:4 0:00 EST 2024 Heart rate 98 /min WedJun 23 06:40 :00 EST 2024 Systolic blood pressure 140 mm[Hg] WedSep 06 10:24:00 EDT 2024 Diastolic blood pressure 80 mm[Hg] WedSep 06 10:24:00 EDT 2024 Respiratory rate 20 /min WedSep 06 10:2 4:00 EDT 2024 Heart rate 84 /min WedSep 06 10:24 :00 EDT 2024 Systolic blood pressure 140 mm[Hg] e Sep 10 07:02:00 EDT 2023 Diastolic blood pressure 80 mm[Hg] e Sep 10 07:02:00 EDT 2023 Respiratory rate 18 /min e Jan 10 07:0 2:00 EDT 2023 Heart rate 72 /min e Jan 10 07:02 :00 EDT 2023 Body weight 108 [lb_av] WedDec 13 07:15 :00 EDT 2023 Systolic blood pressure 118 mm[Hg] WedDec 13 07:15:00 EDT 2023 Diastolic blood pressure 70 mm[Hg] WedDec 13 07:15:00 EDT 2023 Respiratory rate 16 /min WedDec 13 07:1 5:00 EDT 2023 Heart rate 84 /min WedDec 13 07:15 :00 EDT 2023 Body weight 113 [lb_av] WedSep 27 11:50 :00 EDT 2024 Systolic blood pressure 112 mm[Hg] WedSep 27 11:50:00 EDT 2024 Diastolic blood pressure 60 mm[Hg] WedSep 27 11:50:00 EDT 2024 Respiratory rate 20 /min WedSep 27 11:5 0:00 EDT 2024 Heart rate 84 /min WedSep 27 11:50 :00 EDT 2024 Systolic blood pressure 140 mm[Hg] Wed Sep 05:26:00 EDT 2023 Diastolic blood pressure 80 mm[Hg] WedFeb 24 05:26:00 EDT 2023 Respiratory rate 16 /min Wed Sep 05:2 6:00 EDT 2023 Heart rate 78 /min Wed Sep 05:26 :00 EDT 2023 Body weight 113.4 [lb_av] Ailyn Aug 17 11:30 :00 EDT 2024 Systolic blood pressure 132 mm[Hg] Ailyn Aug 17 11:30:00 EDT 2024 Diastolic blood pressure 84 mm[Hg] Ailyn Aug 17 11:30:00 EDT 2024 Respiratory rate 20 /min WedAug 17 11:3 0:00 EDT 2024 Heart rate 88 /min WedAug 17 11:30 :00 EDT 2024 Systolic blood pressure 104 mm[Hg] WedDec 21 07:50:00 EDT 2023 Diastolic blood pressure 60 mm[Hg] WedDec 21 07:50:00 EDT 2023 Respiratory rate 20 /min WedDec 21 07:5 0:00 EDT 2023 Heart rate 80 /min WedDec 21 07:50 :00 EDT 2023 Systolic blood pressure 120 mm[Hg] WedApr 17 06:30:00 EST 2023 Diastolic blood pressure 78 mm[Hg] WedApr 17 06:30:00 EST 2023 Respiratory rate 16 /min WedApr 17 06:3 0:00 EST 2023 Heart rate 70 /min WedApr 17 06:30 :00 EST 2023 Systolic blood pressure 120 mm[Hg] WedApr 11 08:36:00 EST 2023 Diastolic blood pressure 80 mm[Hg] WedApr 11 08:36:00 EST 2023 Respiratory rate 16 /min WedApr 11 08:3 6:00 EST 2023 Heart rate 70 /min WedApr 11 08:36 :00 EST 2023 Systolic blood pressure 140 mm[Hg] WedMar 14 09:15:00 EDT 2023 Diastolic blood pressure 90 mm[Hg] WedMar 14 09:15:00 EDT 2023 Systolic blood pressure 120 mm[Hg] WedAug 30 07:15:00 EDT 2024 Diastolic blood pressure 70 mm[Hg] WedAug 30 07:15:00 EDT 2024 Respiratory rate 14 /min WedAug 30 07:1 5:00 EDT 2024 Heart rate 82 /min WedAug 30 07:15 :00 EDT 2024 Systolic blood pressure 130 mm[Hg] WedOctober 04 08:15:00 EDT 202 Diastolic blood pressure 70 mm[Hg] WedOctober 04 08:15:00 EDT 2024 Respiratory rate 20 /min WedOctober 04 08:1 5:00 EDT 202 Heart rate 80 /min WedOctober 04 08:15 :00 EDT 2024 Systolic blood pressure 130 mm[Hg] WedMar 01 09:05:00 EDT 2023 Diastolic blood pressure 80 mm[Hg] WedMar 01 09:05:00 EDT 2023 Respiratory rate 16 /min WedMar 01 09:0 5:00 EDT 202 Heart rate 70 /min WedMar 01 09:05 :00 EDT 2023 Systolic blood pressure 118 mm[Hg] WedJan 04 09:00:00 EDT 2023 Diastolic blood pressure 80 mm[Hg] WedJan 04 09:00:00 EDT 2023 Respiratory rate 20 /min WedJan 04 09:0 0:00 EDT 2023 Heart rate 70 /min WedJan 04 09:00 :00 EDT 2023 Systolic blood pressure 132 mm[Hg] WedJun 30 11:00:00 EST 2024 Diastolic blood pressure 76 mm[Hg] WedJun 30 11:00:00 EST 202 Respiratory rate 20 /min WedJun 30 11:0 0:00 EST 202 Heart rate 76 /min WedJun 30 11:00 :00 EST 2024 Systolic blood pressure 110 mm[Hg] WedMay 01 09:36:00 EST 2023 Diastolic blood pressure 68 mm[Hg] WedMay 01 09:36:00 EST 2023 Respiratory rate 16 /min WedMay 01 09:3 6:00 EST 202 Heart rate 97 /min WedMay 01 09:36 :00 EST 2023 Body weight 113 [lb_av] WedAug 02 07:11 :00 EST 2024 Systolic blood pressure 128 mm[Hg] WedAug 02 07:11:00 EST 2024 Diastolic blood pressure 76 mm[Hg] WedAug 02 07:11:00 EST 2024 Respiratory rate 18 /min WedAug 02 07:1 1:00 EST 2024 Heart rate 70 /min WedAug 02 07:11 :00 EST 202 Reason for Referral
--- OUTSIDE RECORDS SUMMARY | 2024-12-08 10:51 | XMS_ITS ---
Author Name Auto Generated, Auto Generated Organization [facility] Address [address] [place] [address] Phone [phone] Care Team Providers Care Applied Anthropologist Name Role Phone Altagraciajane López Unavailable [phone] Lucinda Schumacher Unavailable Armani Campa Unavailable Functional [...] Vital Sign Measurement Date Systolic blood pressure 120 mm[Hg] WedAug 30 07:15:00 EDT 2024 Diastolic blood pressure 70 mm[Hg] WedAug 30 07:15:00 EDT 2024 Respiratory rate 14 /min WedAug 30 07:1 5:00 EDT 2024 Heart rate 82 /min WedAug 30 07:15 :00 EDT 2024 Systolic blood pressure 128 mm[Hg] WedJun 23 06:40:00 EST 2024 Diastolic blood pressure 80 mm[Hg] WedJun 23 06:40:00 EST 2024 Respiratory rate 16 /min WedJun 23 06:4 0:00 EST 2024 Heart rate 98 /min WedJun 23 06:40 :00 EST 2024 Systolic blood pressure 118 [...] 28 09:3 0:00 EDT 2023 Body weight 112 [lb_av] WedMay 12 07:00 :00 EST 2023 Systolic blood pressure 160 mm[Hg] WedMay 12 07:00:00 EST 2023 Diastolic blood pressure 84 mm[Hg] WedMay 12 07:00:00 EST 2023 Respiratory rate 20 /min WedMay 12 07:0 0:00 EST 2023 Heart rate 76 /min WedMay 12 07:00 :00 EST 2023 Systolic blood pressure 112 mm[Hg] WedDec 16 08:30:00 EDT 2023 Diastolic blood pressure 68 mm[Hg] WedDec 16 08:30:00 EDT 2023 Respiratory rate 16 /min WedDec 16 08:3 0:00 EDT 2023 Heart rate 80 /min WedDec 16 08:30 :00 EDT 2023 Systolic blood pressure 130 mm[Hg] WedJul 21 06:04:00 EST 2024 Diastolic blood pressure 80 mm[Hg] WedJul 21 06:04:00 EST 2024 Respiratory rate 16 /min WedJul 21 06:0 4:00 EST 5 Heart rate 76 /min WedJul 21 06:04 :00 EST 2024 Body weight 108 [lb_av] WedDec 13 07:15 :00 EDT 2023 Systolic blood pressure 118 mm[Hg] WedDec 13 07:15:00 EDT 2023 Diastolic blood pressure 70 mm[Hg] WedDec 13 07:15:00 EDT 2023 Respiratory rate 16 /min WedDec 13 07:1 5:00 EDT 2023 Heart rate 84 /min WedDec 13 07:15 :00 EDT 2023 Systolic blood pressure 104 mm[Hg] WedDec 21 07:50:00 EDT 2023 Diastolic blood pressure 60 mm[Hg] WedDec 21 07:50:00 EDT 2023 Respiratory rate 20 /min WedDec 21 07:5 0:00 EDT 2023 Heart rate 80 /min WedDec 21 07:50 :00 EDT 2023 Body weight 113 [lb_av] WedAug 07 08:00 :00 EDT 2024 Systolic blood pressure 140 mm[Hg] WedAug 07 08:00:00 EDT 2024 Diastolic blood pressure 90 mm[Hg] WedAug 07 08:00:00 EDT 2024 Respiratory rate 20 /min WedAug 07 08:0 0:00 EDT 2024 Heart rate 96 /min WedAug 07 08:00 :00 EDT 2024 Systolic blood pressure 126 mm[Hg] WedApr 25 06:45:00 EST 2023 Diastolic blood pressure 74 mm[Hg] WedApr 25 06:45:00 EST 2023 Respiratory rate 16 /min WedApr 25 06:4 5:00 EST 2023 Oxygen saturation in Arteria l blood by Pulse oximetry 97 % WedApr 25 06:45:00 EST 2023 Heart rate 88 /min WedApr 25 06:45 :00 EST 2023 Systolic blood pressure 132 mm[Hg] WedJun [...] 07:06 :00 EDT 2023 Systolic blood pressure 148 mm[Hg] Wed Feb 15 07:15:00 EDT 2023 Diastolic blood pressure 88 mm[Hg] Wed Jan 18 07:15:00 EDT 2023 Respiratory rate 16 /min Wed Jan 18 07:1 5:00 EDT 2023 Systolic blood pressure 138 mm[Hg] Ailyn Sep 14 10:16:00 EDT 2024 Diastolic blood pressure 70 mm[Hg] Ailyn Sep 14 10:16:00 EDT 2024 Respiratory rate 20 /min WedSep 14 10:1 6:00 EDT 2024 Heart rate 80 /min WedSep 14 10:16 :00 EDT 2024 Respiratory rate 18 /min WedDec 27 05:3 5:00 EDT 2023 Systolic blood pressure 130 mm[Hg] WedMar 06 09:20:00 EDT 2023 Diastolic blood pressure 90 mm[Hg] WedMar 06 09:20:00 EDT 2023 Respiratory rate 16 /min WedMar 06 09:2 0:00 EDT 2023 Heart rate 70 /min WedMar 06 09:20 :00 EDT 2023 Body weight 113.4 [lb_av] [facility] Aug 17 11:30 :00 EDT 2024 Systolic blood pressure 132 mm[Hg] [facility] Aug 17 11:30:00 EDT 2024 Diastolic blood pressure 84 mm[Hg] [facility] Aug 17 11:30:00 EDT 2024 Respiratory rate 20 /min [facility] Aug 17 11:3 0:00 EDT 2024 Heart rate 88 /min [facility] Aug 17 11:30 :00 EDT 2024 Systolic blood pressure 140 mm[Hg] WedApr 05 08:00:00 EST 2023 Diastolic blood pressure 90 mm[Hg] WedApr 05 08:00:00 EST 2023 Respiratory rate 16 /min WedApr 05 08:0 0:00 EST 2023 Heart rate 67 /min WedApr 05 08:00 :00 EST 2023 Systolic blood pressure 130 mm[Hg] WedOctober 04 08:15:00 EDT 2024 Diastolic blood pressure 70 mm[Hg] WedOctober 04 08:15:00 EDT 2024 Respiratory rate 20 /min WedOctober 04 08:1 5:00 EDT 2024 Heart rate 80 /min WedOctober 04 08:15 :00 EDT 2024 Systolic blood pressure 136 mm[Hg] WedJul 26 07:30:00 EST 2024 Diastolic blood pressure 80 mm[Hg] WedJul 26 07:30:00 EST 2024 Respiratory rate 20 /min WedJul 26 07:3 0:00 EST 2024 Heart rate 88 /min WedJul 26 07:30 :00 EST 2024 Systolic blood pressure 130 mm[Hg] WedMay 29 05:35:00 EST 2023 Diastolic blood pressure 64 mm[Hg] WedMay 29 05:35:00 EST 2023 Respiratory rate 20 /min WedMay 29 05:3 5:00 EST 2023 Heart rate 72 /min WedMay 29 05:35 :00 EST 2023 Systolic blood pressure 140 mm[Hg] WedFeb 24 05:26:00 EDT 2023 Diastolic blood pressure 80 mm[Hg] WedFeb 24 05:26:00 EDT 2023 Respiratory rate 16 /min Wed Sep 05:2 6:00 EDT 2023 Heart rate 78 /min Wed Sep 05:26 :00 EDT 2023 Systolic blood pressure 140 mm[Hg] WedSep 06 10:24:00 EDT 2024 Diastolic blood pressure 80 mm[Hg] WedSep 06 10:24:00 EDT 2024 Respiratory rate 20 /min WedSep 06 10:2 4:00 EDT 2024 Heart rate 84 /min WedSep 06 10:24 :00 EDT 2024 Systolic blood pressure 180 mm[Hg] Ailyn Sep 12 09:30:00 EDT 2023 Diastolic blood pressure 90 mm[Hg] Ailyn Sep 12 09:30:00 EDT 2023 Respiratory rate 18 /min Ailyn Sep 12 09:3 0:00 EDT 2023 Systolic blood pressure 162 mm[Hg] Wed Sep 04 06:50:00 EDT 2023 Diastolic blood pressure 76 mm[Hg] Wed Sep 06:50:00 EDT 2023 Respiratory rate 20 /min Wed Feb 01 06:5 0:00 EDT 2023 Heart rate 80 /min Wed Feb 01 06:50 :00 EDT 2023 Systolic blood pressure 160 mm[Hg] WedJun 14 08:30:00 EST 2024 Diastolic blood pressure 90 mm[Hg] WedJun 14 08:30:00 EST 2024 Respiratory rate 20 /min WedJun 14 08:3 0:00 EST 2024 Heart rate 76 /min WedJun 14 08:30 :00 EST 2024 Systolic blood pressure 126 mm[Hg] WedAug 22 09:15:00 EDT 2024 Diastolic blood pressure 80 mm[Hg] WedAug 22 09:15:00 EDT 2024 Respiratory rate 18 /min WedAug 22 09:1 5:00 EDT 2024 Heart rate 76 /min WedAug 22 09:15 :00 EDT 2024 Body weight 113 [lb_av] WedAug 02 07:11 :00 EST 2024 Systolic blood pressure 128 mm[Hg] WedAug 02 07:11:00 EST 2024 Diastolic blood pressure 76 mm[Hg] WedAug 02 07:11:00 EST 2024 Respiratory rate 18 /min WedAug 02 07:1 1:00 EST 2024 Heart rate 70 /min WedAug 02 07:11 :00 EST 2024 Systolic blood pressure 140 mm[Hg] WedMar 14 09:15:00 EDT 2023 Diastolic blood pressure 90 mm[Hg] WedMar 14 09:15:00 EDT 2023 Systolic blood pressure 110 mm[Hg] WedMay 01 09:36:00 EST 2023 Diastolic blood pressure 68 mm[Hg] WedMay 01 09:36:00 EST 2023 Respiratory rate 16 /min WedMay 01 09:3 6:00 EST 2023 Heart rate 97 /min WedMay 01 09:36 :00 EST 2023 Systolic blood pressure 108 mm[Hg] WedDec 29 05:30:00 EDT 2023 Diastolic blood pressure 64 mm[Hg] WedDec 29 05:30:00 EDT 2023 Respiratory rate 18 /min WedDec 29 05:3 0:00 EDT 2023 Heart rate 80 /min WedDec 29 05:30 :00 EDT 2023 Systolic blood pressure 120 mm[Hg] WedApr 11 08:36:00 EST 2023 Diastolic blood pressure 80 mm[Hg] WedApr 11 08:36:00 EST 2023 Respiratory rate 16 /min WedApr 11 08:3 6:00 EST 2023 Heart rate 70 /min WedApr 11 08:36 :00 EST 2023 Systolic blood pressure 130 mm[Hg] WedMar 01 09:05:00 EDT 2023 Diastolic blood pressure 80 mm[Hg] WedMar 01 09:05:00 EDT 2023 Respiratory rate 16 /min WedMar 01 09:0 5:00 EDT 2023 Heart rate 70 /min WedMar 01 09:05 :00 EDT 2023 Body weight 113 [lb_av] [...] 17 08:30 :00 EST 2023 Body weight 114 [lb_av] Wedb 09:45 :00 EST 2024 Systolic blood pressure 150 mm[Hg] Wedb 09:45:00 EST 2024 Diastolic blood pressure 80 mm[Hg] Wedb 09:45:00 EST 202 Respiratory rate 20 /min Wedb 09:4 5:00 EST 202 Heart rate 80 /min Wedb 09:45 :00 EST 202 Body weight 113.4 [lb_av] WedJun 09 08:00 :00 EST 2024 Systolic blood pressure 150 mm[Hg] WedJun 09 08:00:00 EST 2024 Diastolic blood pressure 90 mm[Hg] WedJun 09 08:00:00 EST 2024 Respiratory rate 20 /min WedJun 09 08:0 0:00 EST 2024 Heart rate 80 /min WedJun 09 08:00 :00 EST 2024 Systolic blood pressure 120 mm[Hg] WedApr 17 06:30:00 EST 2023 Diastolic blood pressure 78 mm[Hg] WedApr 17 06:30:00 EST 2023 Respiratory rate 16 /min WedApr 17 06:3 0:00 EST 2023 Heart rate 70 /min WedApr 17 06:30 :00 EST 2023 Systolic blood pressure 136 mm[Hg] WedJan 10 07:10:00 EDT 2023 Diastolic blood pressure 70 mm[Hg] WedJan 10 07:10:00 EDT 2023 Respiratory rate 20 /min WedJan 10 07:1 0:00 EDT 2023 Heart rate 80 /min WedJan 10 07:10 :00 EDT 2023 Systolic blood pressure 140 mm[Hg] WedFeb 07 07:02:00 EDT 2023 Diastolic blood pressure 80 mm[Hg] WedFeb 07 07:02:00 EDT 2023 Respiratory rate 18 /min WedFeb 07 07:0 2:00 EDT 2023 Heart rate 72 /min WedFeb 07 07:02 :00 EDT 2023 Systolic blood pressure 118 mm[Hg] WedJan 17 06:35:00 EDT 2023 Diastolic blood pressure 70 mm[Hg] WedJan 17 06:35:00 EDT 2023 Respiratory rate 20 /min WedJan 17 06:3 5:00 EDT 2023 Heart rate 56 /min WedJan 17 06:35 :00 EDT 2023 Reason for Referral
--- OUTSIDE RECORDS SUMMARY | 2024-12-08 10:52 | XMS_ITS | Encounter Summary ---
Author Organization [facility] Address [address] [place] [address] Care Team Providers Care Engraver Apprentice Decorative Name Role Phone Armani Campa MD Primary Care Provider [phone] Kylee James APRN Unavailable [phone] Faustino Topete MD Unavailable [phone] Encounter Details Date Type Department Care Team (Late st Contact Info) Description 10/24/2024 Telephone [facility] [address] [place] [address] Faustino Topete MD 800 [facility] [address] [place] [address] Social History Tobacco Use Types [...] place to sleep or slept in a residential (including now)? No 12/01/2023 CAGE ASSESSMENT Answer [...] drink first t volodymyr in the morning (EYE-EMERGENCY COMMUNICATIONS OFFICER) to steady your nerves or to get [...] and optimal time of day to reach caller:[phone] Note: Please do not reply to this message. Follow-up communication and further actions as a result of this message need to be communicated with the patient directly, if the patient is not active onMyChart. If the patient is active on MyChart, they will receive notification of the communication/outcome via BizeeBee. documented in this encounter Plan of Treatment [...] documented as of this encounter Care Teams Engraver Apprentice Decorative Relationship Specialty Start Date End Date Armani Campa MD [address] [place] [address] PCP - General 10/19/22 Kylee James APRN [address] [place] [facility] [address] [place] [address] Nurse Practitioner Medical Oncology 03/30/23 Faustino Topete MD 800 [facility] [address] [address] Consulting Physician Medical Oncology 12/01/23 documented as of this encounter
--- OUTSIDE RECORDS SUMMARY | 2024-12-08 10:52 | XMS_ITS | Encounter Summary ---
Author Organization [facility] Address [address] [place] [address] Care Team Providers Care Bead Forming Machine Operator Name Role Phone Armani Campa MD Primary Care Provider [phone] Kylee James APRN Unavailable [phone] Faustino Topete MD Unavailable [phone] Encounter Details Date Type Department Care Team [...] drink first t volodymyr in the morning (EYE-VERSE WRITER) to steady your nerves or to get [...] as of this encounter Plan of Treatment Not on [...] documented as of this encounter Care Teams Bead Forming Machine Operator Relationship Specialty Start Date End Date Armani Campa MD [address] [place], [place] [id number] PCP - General 10/19/22 Kylee aJmes APRN [address] [address] Nurse Practitioner Medical Oncology 03/30/23 Faustino Topete MD [address] [address] Consulting Physician Medical Oncology 12/01/23 documented as of this encounter
--- OUTSIDE RECORDS SUMMARY | 2024-12-08 10:52 | XMS_ITS | Encounter Summary ---
Author Organization [facility] Address [address] [place] [address] Care Team Providers Care House Repairer Name Role Phone Armani Campa MD Primary Care Provider [phone] Kylee James APRN Unavailable [phone] Faustino Topete MD Unavailable [phone] Encounter Details Date Type Department Care Team (Late st Contact Info) Description 10/11/2024 Telephone [facility] [address] [place] [address] Faustino Topete MD 800 [facility] [address] [place] [address] Social History Tobacco Use Types [...] drink first t volodymyr in the morning (EYE-PRODUCT CRAFTSMAN) to steady your nerves or to get [...] optimal time of day to reach caller: [phone] Note: Please do not reply to this message. Follow-up communication and further actions as a result of this message need to be communicated with the patient directly, if the patient is not active onMyChart. If the patient is active on MyChart, they will receive notification of the communication/outcome via Pikimal. documented in this encounter Plan of Treatment [...] documented as of this encounter Care Teams House Repairer Relationship Specialty Start Date End Date Armani Campa MD [address] [place] [address] PCP - General 10/19/22 Kylee James APRN [address] [address] Nurse Practitioner Medical Oncology 03/30/23 Faustino Topete MD [address] [facility] [address] [place] [address] Consulting Physician Medical Oncology 12/01/23 documented as of this encounter
--- OUTSIDE RECORDS SUMMARY | 2024-12-08 10:53 | XMS_ITS | Encounter Summary ---
Author Organization [facility] Address [address] [place] [address] Care Team Providers Care Solution Developer Name Role Phone Armani Campa MD Primary Care Provider [phone] Kylee James APRN Unavailable [phone] Faustino Topete MD Unavailable [phone] Reason for Visit * Reason Onset Date Comments new start 11/21/2024 Encounter Details Date Type Department Care Team (Late st Contact Info) Description 11/21/2024 Telephone [facility] [address] [place] [id number] Noble Burrell, PharmD new Social History Tobacco [...] place to sleep or slept in a prison (including now)? No 12/01/2023 CAGE ASSESSMENT Answer [...] drink first t volodymyr in the morning (EYE-CONICAL MIXER) to steady your nerves or to [...] documented as of this encounter Care Teams Solution Developer Relationship Specialty Start Date End Date Armani Campa MD [address] [place] [address] PCP - General 10/19/22 Kylee James APRN [address] [address] Nurse Practitioner Medical Oncology 03/30/23 Faustino Topete MD [address] [address] Consulting Physician Medical Oncology 12/01/23 documented as of this encounter
--- OUTSIDE RECORDS SUMMARY | 2024-12-08 10:53 | XMS_ITS | Encounter Summary ---
Author Organization [facility] Address [address] [place] [address] Care Team Providers Care Cart Attendant Name Role Phone Armani Campa MD Primary Care Provider [phone] Kylee James APRN Unavailable [phone] Faustino Topete MD Unavailable [phone] Encounter Details Date Type Department Care Team [...] drink first t volodymyr in the morning (EYE-TOWER OBSERVER) to steady your nerves or to get [...] documented as of this encounter Care Teams Cart Attendant Relationship Specialty Start Date End Date Armani Campa MD [address] [place], [place] [id number] PCP - General 10/19/22 Kylee James APRN [address] [address] Nurse Practitioner Medical Oncology 03/30/23 Faustino Topete MD [address] [address] Consulting Physician Medical Oncology 12/01/23 documented as of this encounter
--- OUTSIDE RECORDS SUMMARY | 2024-12-08 10:53 | XMS_ITS | Encounter Summary ---
Author Organization [facility] Address [address] [place] [address] Care Team Providers Care Mold Inspector Name Role Phone Armani Campa MD Primary Care Provider [phone] Kylee James APRN Unavailable [phone] Faustino Ruano MD Unavailable [phone] Encounter Details Date Type Department Care Team (Late st Contact Info) Description 11/13/2024 Telephone [facility] [address] [place] [address] Faustino Ruano MD 800 [facility] [address] [place] [address] Social History Tobacco Use Types [...] place to sleep or slept in a penitentiary (including now)? No 12/01/2023 CAGE ASSESSMENT Answer [...] drink first t volodymyr in the morning (EYE-HVAC DESIGN ENGINEER) to steady your nerves or to [...] was left IVF order sent in to [facility] and noted dr ruano's message on the serotonin level * Telephone Encounter - Leticia Bowen - 11/13/2024 12:18 PM EDT Melody not listed on pts preferred contacts, no answer from pt. * Telephone Encounter - Fransisca Jasso - 11/13/2024 11:39 AM EDT Patient Phone Message Reason for Call: Melody was worried about her serotonin level and IV fluids in her hometown [facility]- Can you Melody back? Best contact number and optimal time of day to reach caller: [phone] Note: Please do not reply to this [...] documented as of this encounter Care Teams Mold Inspector Relationship Specialty Start Date End Date Armani Campa MD [facility] [place] [address] PCP - General 10/19/22 Kylee James APRN [address] [address] Nurse Practitioner Medical Oncology 03/30/23 Faustino Ruano MD [address] [address] Consulting Physician Medical Oncology 12/01/23 documented as of this encounter
--- OUTSIDE RECORDS SUMMARY | 2024-12-08 10:53 | XMS_ITS | Clinical Summary ---
Author Organization [facility] Address [address] [place] [address] Care Team Providers Care Kettle Loader Name Role Phone Armani Campa MD Primary Care Provider [phone] Kylee James APRN Unavailable Faustino Topete MD Unavailable [phone] Allergies No known active allergies Medications alendronate [...] PRN for mild pain. 11/27/19 24 Active potassium chloride CR (K-Tab) [...] (diarrhea). 90 mL 5 11/22/19 25 Active [place] & Syringes [facility] Please dispense appropriate needles and syringes for octreotide injection 90 each 3 11/30/19 25 Active UltiCare Insulin Syringe 31G X 10/13 0.3 ML [facility] areac 12/05/19 Active KLOR-CON 20 MEQ ER tablet 12/05/19 Active octreotide (SandoSTATIN) 1000 MCG/ML injectionIndicatio ns:Malignant [...] on 10/22/2022 Metastatic malignant neuroendocrine tumor to [facility] er 10/22/2022 Age-related osteoporosis wit hout current pathological fracture 12/25/2021 Essential hypertension 12/25/2021 S/P TKR (total knee replacement), left Primary osteoarthritis of right knee 12/25/2021 Resolved Problems Problem Noted Date Diagnosed Date Resolved Date Small bowel obstruction 11/19/2023 06/2 12/2023 Encounters Date Type Department Care Team Description 12/05/2024 10:30 AM EDT Office [facility] [address] [place] [address] Shannon Aguero, BEAUTY PARLOR CLEANER 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) 12/05/2024 Travel 11/29/2024 Refill [facility] [address] [place] [address] Mariln Guevara, PharmD 11/21/2024 Telephone [facility] [address] [place] [address] Noble Burrell, PharmD new start 11/21/2024 Refill [facility] [address] [place] [address] Faustino Topete MD Malignant neuroendocrine neoplasm (CMS/HCC) 11/15/2024 Orders Only [facility] [address] [place] [address] Faustino Topete MD 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) 11/13/2024 Telephone [facility] [address] [place] [address] Faustino Topete MD 11/10/2024 2:00 PM EDT Office Visit [facility] [address] [place] [address] Faustino Topete MD 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); 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); Diarrhea, unspecified type 11/10/2024 Travel 11/09/2024 Travel 10/24/2024 Telephone [facility] [address] [place] [address] Faustino Topete MD 10/11/2024 Telephone [facility] [address] [place] [address] Faustino Topete MD from Last 3 Months Immunizations Immunization Administration Dates Next Due Influenza, high-dose, quadrivalent 03/11/2022 Joselo COVID-19 Vaccine (Blue Cap) 18+ 08/08/19 21 Moderna COVID-19 Vaccine (Assistant Property Manager) 12+ years Moderna COVID-19 Vaccine Bivalent 6months+ [...] drink first t volodymyr in the morning (EYE-BARREL TESTER AND DRAINER) to steady your nerves or to get [...] 11/10/2024 2:11 PM EDT Plan of Treatment Health Maintenance Due Date Last Done Comments [facility]-Bone Density Scan 1943 [facility]-Infant/Child/Adol SDOH Screenings 1943 [facility]- SDOH Screenings 1961 [facility]-Adult SDOH Screenings 1961 [facility]-Hepatitis A Vaccines (1 of 2 - Risk 2-dose series) 1962 [facility]-Pneumococcal Vaccine: 50+ Years (1 of 2 - PCV) 1962 [id number]-QOLPQ-69 Vaccine ( season) 2024 03/12/2024, 03/12/2023, 03/11/2022, Additional history exists [facility]-Influenza Vaccine (#1) 01/29/202502/27, 03/12/2023, 03/11/2022 [facility]-Medicare Annual Wellness (AWV) 02/14/2025 02/15/2024, 07/02/2022 [facility]-Depression Screening 12/05/2025 12/05/2024 [facility]-DTaP,Tdap,and Td Vaccines (3 - Td or [...] 1622(H) <93 ng/mL 11/14/2024 6:56 PM EDT [facility] Comment: Impaired renal or hepatic function or treatment with proton pump inhibitors may result in artifactual elevations of Chromogranin A. ADDITIONAL INFORMATION The testing method is a homogeneous time-resolved immunofluorescent assay manufactured by [employer] and performed on the [employer] Kryptor Compact Plus. Values obtained with different [...] examination and other findings. Test Performed by: [address] [address] Material Yard Clerk: David Hawkins Ph.D.; CLIA# [id number] Blood Venous blood specimen / Unknown Venipuncture / Unknown 11/10/2024 4:02 PM EDT 11/10/2024 4:19 PM EDT Faustino Topete MD LAB BLOOD ORDERABLES Final R esult Performing Organization Address City/[facility]/ZIP Co de Phone Number [facility] ([facility]) * (ABNORMAL) 5-HIAA, Plasma (11/10/2024 4:02 PM EDT) Fasting greater than or equal to 8 hours? Yes 11/23/2024 4:20 PM EDT [facility] 5-Hydroxyindole acetic Acid (HIAA), Plasma 58(H) <=22 ng/ml 11/23/2024 4:20 PM EDT [facility] ([facility]) Blood Venous blood specimen / Unknown Venipuncture / Unknown 11/10/2024 4:02 PM EDT 11/10/2024 4:12 PM EDT Narrative [facility] ([facility]) - 11/23/2024 4:20 PM EDT This GCMS assay was developed and its performance characteristics determined by [facility]. It has not been cleared or approved by the FDA and such approval or clearance is not required at this time. Values obtained with different methods, different laboratories or with kits cannot be used interchangeably with the results on this report. The results cannot be interpreted as absolute evidence of the presence or absence of malignant disease. Performed By: [facility] [address] [place] [address]<lb> Faustino Topete MD LAB BLOOD ORDERABLES Final R esult [facility] ([facility]) [facility] [address] [facility] [place] [address] * (ABNORMAL) CBC and differential (11/10/2024 4:02 PM EDT) WBC Count 6.30 3.70 - 10.30 10*3/uL LAB HEMATOLOGY METHOD 11/10/2024 5:55 PM EDT [facility] RBC Count 4.67 3.90 - 5.20 10*6/uL LAB HEMATOLOGY METHOD 11/10/2024 5:55 PM EDT [facility] HGB 11.7 11.2 - 15.7 g/dL LAB HEMATOLOGY METHOD 11/10/2024 5:55 PM EDT [facility] HCT 37.8 34.0 - 45.0 % LAB HEMATOLOGY METHOD 11/10/2024 5:55 PM EDT [facility] Platelet Count 138(L) 155 - 369 10*3/uL LAB HEMATOLOGY METHOD 11/10/2024 5:55 PM EDT [facility] MCV 81 79 - 98 fL LAB HEMATOLOGY METHOD 11/10/2024 5:55 PM EDT [facility] MCH 25.1(L) 26.0 - 32.0 pg LAB HEMATOLOGY METHOD 11/10/2024 5:55 PM EDT [facility] MCHC 31.0 30.7 - 35.5 g/dL LAB HEMATOLOGY METHOD 11/10/2024 5:55 PM EDT [facility] RDW 16.1(H) 11.5 - 14.5 % LAB HEMATOLOGY METHOD 11/10/2024 5:55 PM EDT [facility] MPV LAB HEMATOLOGY METHOD 11/10/2024 5:55 PM EDT [facility] Comment:Not Measured nRBC 0.0 <=0.0 per 100 WBCs LAB HEMATOLOGY METHOD 11/10/2024 5:55 PM EDT [facility] Differential Type Automated LAB HEMATOLOGY METHOD 11/10/2024 5:55 PM EDT [facility] Neutrophils % 75 % LAB HEMATOLOGY METHOD 11/10/2024 5:55 PM EDT [facility] Lymphocytes % 15 % LAB HEMATOLOGY METHOD 11/10/2024 5:55 PM EDT [facility] Monocytes % 9 % LAB HEMATOLOGY METHOD 11/10/2024 5:55 PM EDT [facility] Eosinophils % 1 % LAB HEMATOLOGY METHOD 11/10/2024 5:55 PM EDT [facility] Basophils % 0 % LAB HEMATOLOGY METHOD 11/10/2024 5:55 PM EDT [facility] Immature Granulocytes % 0 % LAB HEMATOLOGY METHOD 11/10/2024 5:55 PM EDT [facility] Neutrophils Absolute 4.69 1.60 - 6.10 10*3/uL LAB HEMATOLOGY METHOD 11/10/2024 5:55 PM EDT [facility] Lymphocytes Absolute 0.95(L) 1.20 - 3.90 10*3/uL LAB HEMATOLOGY METHOD 11/10/2024 5:55 PM EDT [facility] Monocytes Absolute 0.54 0.30 - 0.90 10*3/uL LAB HEMATOLOGY METHOD 11/10/2024 5:55 PM EDT [facility] Eosinophils Absolute 0.08 0.00 - 0.50 10*3/uL LAB HEMATOLOGY METHOD 11/10/2024 5:55 PM EDT [facility] Basophils Absolute 0.02 0.00 - 0.10 10*3/uL LAB HEMATOLOGY METHOD 11/10/2024 5:55 PM EDT [facility] Immature Granulocytes Absolute 0.02 0.00 - 0.06 10*3/uL LAB HEMATOLOGY METHOD 11/10/2024 5:55 PM EDT [facility] Blood Venous blood specimen / Unknown Venipuncture / Unknown 11/10/2024 4:02 PM EDT 11/10/2024 4:27 PM EDT Narrative [facility] - 11/10/2024 5:55 PM EDT Therapeutic decision making should be based on absolute values, rather than percentages. us Faustino Topete MD LAB BLOOD ORDERABLES Final R esult [facility] [address] [place] [address] * (ABNORMAL) Serotonin, Serum (11/10/2024 4:02 PM EDT) SEROTONIN 1449(H) 50 - 220 ng/mL 11/13/2024 6:02 AM EDT [facility] ([employer]) Serum Venous blood specimen / Unknown 11/10/2024 4:02 PM EDT 11/10/2024 4:18 PM EDT Narrative [facility] ([employer]) - 11/13/2024 6:02 AM EDT TEST INFORMATION: Serotonin, Serum This test was developed and its performance characteristics determined by [email or web address]. It has not been cleared or approved by the [place] Food and Drug Administration. This test was performed in a CLIA certified laboratory and is intended for clinical purposes. Performed By: [email or web address] [address] [place] [id number] Cook Mayonnaise: Kurt Borges MD, PhD CLIA Number: [id number] Faustino Topete MD LAB BLOOD ORDERABLES Final R esult Performing Organization Address City/[facility]/ZIP Co de Phone Number [facility] [address] [place] [address] * (ABNORMAL) Magnesium (11/10/2024 4:02 PM EDT) Magnesium, Plasma 1.5(L) 1.9 - 2.4 mg/dL 11/10/2024 4:51 PM EDT [facility] Blood Venous blood specimen / Unknown Venipuncture / Unknown 11/10/2024 4:02 PM EDT 11/10/2024 4:18 PM EDT Faustino Topete MD LAB BLOOD ORDERABLES Final R esult Performing Organization Address City/[facility]/ZIP Co de Phone Number [facility] [address] [place] [address] * (ABNORMAL) Comprehensive metabolic panel (11/10/2024 4:02 PM EDT) Glucose, Plasma 92 74 - 99 mg/dL 11/10/2024 4:51 PM EDT [facility] BUN, Plasma 14 8 - 23 mg/dL 11/10/2024 4:51 PM EDT [facility] Creatinine, Plasma 0.57(L) 0.60 - 1.10 mg/dL 11/10/2024 4:51 PM EDT [facility] BUN/Creatinine Ratio 25 11/10/2024 4:51 PM EDT [facility] Sodium, Plasma 141 136 - 145 mmol/L 11/10/2024 4:51 PM EDT [facility] Potassium, Plasma 3.4(L) 3.6 - 4.9 mmol/L 11/10/2024 4:51 PM EDT [facility] Chloride, Plasma 106 97 - 107 mmol/L 11/10/2024 4:51 PM EDT [facility] CO2, Plasma 21(L) 22 - 29 mmol/L 11/10/2024 4:51 PM EDT [facility] Anion Gap 14 6 - 16 mmol/L 11/10/2024 4:51 PM EDT [facility] Total Calcium, Plasma 8.6(L) 8.9 - 10.2 mg/dL 11/10/2024 4:51 PM EDT [facility] Total Protein 7.4 6.3 - 7.9 g/dL 11/10/2024 4:51 PM EDT [facility] Albumin, Plasma 3.8 3.5 - 5.2 g/dL 11/10/2024 4:51 PM EDT [facility] AST, Plasma 36(H) 10 - 35 U/L 11/10/2024 4:51 PM EDT [facility] ALT, Plasma 20 10 - 35 U/L 11/10/2024 4:51 PM EDT [facility] Alkaline Phosphatase, Plasma 98 46 - 142 U/L 11/10/2024 4:51 PM EDT [facility] Total Bilirubin, Plasma 0.3 0.2 - 1.1 mg/dL 11/10/2024 4:51 PM EDT [facility] eGFRcr 91.4 mL/min/1.7 3m*2 11/10/2024 4:51 PM EDT [facility] Comment:Reported eGFRcr in m L/min/1.73m2 is based the CKD-EPI 2020 equation that does not use a race coefficient. Blood Venous blood specimen / Unknown Venipuncture / Unknown 11/10/2024 4:02 PM EDT 11/10/2024 4:18 PM EDT us Faustino Topete MD LAB BLOOD ORDERABLES Final R esult [facility] [address] [place] [address] from Last 3 Months Insurance [employer] MEDICARE [...] Patient has decision-making capacity? Yes Care Teams Kettle Loader Relationship Specialty Start Date End Date Armani Campa MD [address] [place] [address] PCP - General 10/19/22 Kylee James APRN [address] [facility] [address] [place] [address] Nurse Practitioner Medical Oncology 03/30/23 Faustino Topete MD [address] [facility] [address] [place] [address] Consulting Physician Medical Oncology 12/01/23
--- OUTSIDE RECORDS SUMMARY | 2024-12-08 10:53 | XMS_ITS | Encounter Summary ---
Author Organization [facility] Address [address] [place] [address] Care Team Providers Care Car Mover Name Role Phone Armani Campa MD Primary Care Provider [phone] Kylee James APRN Unavailable [phone] Faustino Topete MD Unavailable [phone] Encounter Details Date Type Department Care Team (Latest Contact Info) Description 12/05/2024 Travel Social History Tobacco Use Types Packs/Day [...] place to sleep or slept in a halfway (including now)? No 12/01/2023 CAGE ASSESSMENT Answer [...] drink first t volodymyr in the morning (EYE-RENEWABLE ENERGY BROKER) to steady your nerves or to get rid of a hangover? 0 12/02/2023 CAGE Questionnaire Score 0 024 Utilities Answer Date Recorded In the past 12 months has th e [employer], gas, oil, or water [employer] threatened to shut off services in your [...] all 12/05/2024 10:38 AM EDT Jose Navas Patient Health Questionnaire-2 Score 0 12/05/2024 10:38 AM EDT Jose Navas documented as of this encounter Plan of [...] documented as of this encounter Care Teams Car Mover Relationship Specialty Start Date End Date Armani Campa MD [address] [place] [address] PCP - General 10/19/22 Kylee James APRN [address] [address] Nurse Practitioner Medical Oncology 03/30/23 Faustino Topete MD [address] [address] Consulting Physician Medical Oncology 12/01/23 documented as of this encounter
--- OUTSIDE RECORDS SUMMARY | 2024-12-08 10:53 | XMS_ITS | Encounter Summary ---
Author Organization [facility] Address [address] [place] [address] Care Team Providers Care Last Pattern Grader Name Role Phone Armani Campa MD Primary Care Provider Kylee James SLIVER LAP MACHINE TENDER Unavailable [phone] Faustino Topete MD Unavailable [phone] Encounter Details Date Type Department Care Team (Late st Contact Info) Description 11/15/2024 Orders Only [facility] [address] [place] [address] Faustino Topete MD [address] [facility] [address] [place] [address] Metastatic malignant neuroendocrine tumor to [...] drink first t volodymyr in the morning (EYE-HEAD OF MATHEMATICS) to steady your nerves or to get rid of a hangover? 0 12/02/2023 CAGE Questionnaire Score 0 024 Utilities Answer Date Recorded In the past 12 months has th e [employer], gas, oil, or water company threatened to [...] documented as of this encounter Care Teams Last Pattern Grader Relationship Specialty Start Date End Date Armani Campa MD [address] [place] [address] PCP - General 10/19/22 Kylee James APRN [address] Cheung [facility] [address] [place] [address] Nurse Practitioner Medical Oncology 03/30/23 Faustino Topete MD [address] Cheung [facility] [address] [place] [address] Consulting Physician Medical Oncology 12/01/23 documented as of this encounter
--- OUTSIDE RECORDS SUMMARY | 2024-12-08 10:53 | XMS_ITS ---
Author Organization [facility] Address [address] [place] [address] Care Team Providers Care Periodontist Name Role Phone Armani Campa MD Primary Care Provider [phone] Kylee James APRN Unavailable [phone] Faustino Topete MD Unavailable [phone] Active Problems Problem Noted Date Diagnosed Date [...]
--- OUTSIDE RECORDS SUMMARY | 2024-12-08 10:53 | XMS_ITS | Encounter Summary ---
Author Organization [facility] Address [address] [place] [address] Care Team Providers Care Knife Glazer Name Role Phone Armani Campa MD Primary Care Provider [phone] Kylee James APRN Unavailable [phone] Faustino Topete MD Unavailable [phone] Encounter Details Date Type Department Care Team (Late st Contact Info) Description 11/29/2024 Refill [facility] [address] [place] [address] Marlin Guevara, PharmD [address] [phone] Social History Tobacco Use Types Packs/Day Years [...] place to sleep or slept in a custodial (including now)? No 12/01/2023 CAGE ASSESSMENT Answer [...] first t volodymyr in the morning (EYE-HVAC MANAGER) to steady your nerves or to [...] documented as of this encounter Care Teams Knife Glazer Relationship Specialty Start Date End Date Armani Campa MD [address] [place] [address] PCP - General 10/19/22 Kylee James APRN [address] [address] Nurse Practitioner Medical Oncology 03/30/23 Faustino Topete MD [address] [address] Consulting Physician Medical Oncology 12/01/23 documented as of this encounter
--- OUTSIDE RECORDS SUMMARY | 2024-12-08 10:53 | XMS_ITS | Encounter Summary ---
Author Organization [facility] Address [address] [place] [address] Care Team Providers Care Manager Clinical Pharmacy Name Role Phone Armani Campa MD Primary Care Provider [phone] Kylee James MOTOR GRADER OPERATOR Unavailable [phone] Faustino Topete MD Unavailable [phone] Reason for Visit * Reason Onset Date Comments Med Refill 11/21/2024 Encounter Details Date Type Department Care Team (Late st Contact Info) Description 11/21/2024 Refill [facility] [address] [place] [address] Faustino Topete MD [address] [address] Malignant neuroendocrine neoplasm (CMS/HCC) Social [...] drink first t volodymyr in the morning (EYE-CHAIRMAN PRESIDENT AND CHIEF EXECUTIVE OFFICER) to steady your nerves or to [...] documented as of this encounter Care Teams Manager Clinical Pharmacy Relationship Specialty Start Date End Date Armani Campa MD [address] [place] [address] PCP - General 10/19/22 Kylee James APRN [address] [address] Nurse Practitioner Medical Oncology 03/30/23 Faustino Topete MD [address] [address] Consulting Physician Medical Oncology 12/01/23 documented as of this encounter
[2024-12-08] MEDS: 0.9 % SODIUM CHLORIDE 1000ML 1,000 ML 999 ML IV (11:00)
[2024-12-08 11:04] VITALS: BP 119/72; PULSE 78; RESP 18; O2SAT 97
[2024-12-08 12:00] VITALS: BP 153/88; PULSE 79; RESP 18
== END 2024-12-08 12:00 | disposition home or self-care (01) ==
LOC: INF 10:51
PROVIDERS: PCP Family Medicine; Visit Provider Internal Medicine Hematology & Oncology
DX: C7B.8 Other secondary neuroendocrine tumors (principal)
CPT/HCPCS: 96360; J7030

== ENCOUNTER 2024-12-15 10:54 | Outpatient (CLI) | payer MEDICARE, SELFPAY ==
--- OUTSIDE RECORDS SUMMARY | 2024-11-10 14:00 | XMS_ITS | Encounter Summary ---
Author Organization [facility] Address [address] [place] [address] Care Team Providers Care Leathersmith Name Role Phone Armani Campa MD Primary Care Provider [phone] Kylee James MECHANICAL ENGINEERING TEACHER Unavailable [phone] Faustino Topete MD Unavailable [phone] Reason for Visit * Reason Comments Follow-up Malignant neuroendoc rine neoplasm Encounter Details Date Type Department Care Team (Late st Contact Info) Description 11/10/2024 2:00 PM EDT Office Visit [facility] Multidisciplinary Oncology Clinic [address] [place] [address] Faustino Topete MD [address] [phone] 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 No 12/01/2023 CAGE ASSESSMENT Answer [...] drink first t volodymyr in the morning (EYE-SEWING MACHINE ASSEMBLER) to steady your nerves or to get rid of a hangover? 0 12/02/2023 CAGE Questionnaire Score 0 024 Utilities Answer Date Recorded In the past 12 months has th e [employer], gas, oil, or water company threatened to [...] had. Currently in hospice. 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 I spent 30 minutes [id number] with the patient and fjg-cvak-ev-face time, over half in discussionof the diagnosis and the importance of compliance with the treatment plan. Faustino Topete MD, FACP [facility] [address] , [place] [address] documented in this encounter Plan of Treatment [...] - 2.4 mg/dL 11/10/2024 4:[address] [facility] Blood Venous blood specimen / Unknown Venipuncture / Unknown 11/10/2024 4:02 PM EDT 11/10/2024 4:18 PM EDT us Faustino Topete MD LAB BLOOD ORDERABLES Final R esult [facility] [address] [place] [address] * (ABNORMAL) 5-HIAA, Plasma (11/10/2024 4:02 PM EDT) Pathologist [facility] Fasting greater than or equal to 8 hours? Yes 11/23/2024 4:[address] [facility] 5-Hydroxyindole acetic Acid (HIAA), Plasma 58(H) <=22 ng/ml 11/23/2024 4:20 PM EDT [facility] ([facility]) Blood Venous blood specimen / Unknown Venipuncture / Unknown 11/10/2024 4:02 PM EDT 11/10/2024 4:12 PM EDT Narrative [facility] ([facility]) - 11/23/2024 4:20 PM EDT This GCMS assay was developed and its performance characteristics determined by [facility]. It has not been cleared or approved by the FDA and such approval or clearance is not required at this time. Values obtained with different methods, different laboratories or with kits cannot be used interchangeably with the results on this report. The results cannot be interpreted as absolute evidence of the presence or absence of malignant disease. Performed By: [facility] [address] [place] [address]<lb> us Faustino Topete MD LAB BLOOD ORDERABLES Final R esult [facility] ([facility]) [facility] [address] [place] [address] * (ABNORMAL) Chromogranin A (11/10/2024 4:02 PM EDT) CHROMOGRANIN A 1622(H) <93 ng/mL 11/14/2024 6:56 PM EDT [facility] ([facility]) Comment: Impaired renal or hepatic function or treatment with proton pump inhibitors may result in artifactual elevations of Chromogranin A. ADDITIONAL INFORMATION The testing method is a homogeneous time-resolved immunofluorescent assay manufactured by [employer] and performed on the [employer] Kryptor Compact Plus. Values obtained with different [...] examination and other findings. Test Performed by: [facility] [address] [place] [address] Rn Quality: David Hawkins Ph.D.; CLIA# [id number] Blood Venous blood specimen / Unknown Venipuncture / Unknown 11/10/2024 4:02 PM EDT 11/10/2024 4:19 PM EDT Faustino Topete MD LAB BLOOD ORDERABLES Final R esult Performing Organization Address [facility] Co de Phone Number [facility] ([facility]) * (ABNORMAL) Serotonin, Serum (11/10/2024 4:02 PM EDT) SEROTONIN 1449(H) 50 - 220 ng/mL 11/13/2024 6:02 AM EDT [facility] ([facility] Serum Venous blood specimen / Unknown 11/10/2024 4:02 PM EDT 11/10/2024 4:18 PM EDT Narrative [facility] ([facility]) - 11/13/2024 6:02 AM EDT TEST INFORMATION: Serotonin, Serum This test was developed and its performance characteristics determined by [facility]. It has not been cleared or approved by the US Food and Drug Administration. This test was performed in a CLIA certified laboratory and is intended for clinical purposes. Performed By: [facility] [address] [place] [id number] Securities Attorney: Kurt Borges MD, PhD CLIA Number: [id number] Faustino Topete MD LAB BLOOD ORDERABLES Final R esult Performing Organization Address [facility] Co de Phone Number [facility] ([facility]) [address] [place] [address] * (ABNORMAL) Comprehensive metabolic panel (11/10/2024 4:02 PM EDT) Glucose, Plasma 92 74 - 99 mg/dL 11/10/2024 4:51 PM EDT [facility] BUN, Plasma 14 8 - 23 mg/dL 11/10/2024 4:51 PM EDT [facility] Creatinine, Plasma 0.57(L) 0.60 - 1.10 mg/dL 11/10/2024 4:51 PM EDT [facility] BUN/Creatinine Ratio 25 11/10/2024 4:51 PM EDT [facility] Sodium, Plasma 141 136 - 145 mmol/L 11/10/2024 4:51 PM EDT [facility] Potassium, Plasma 3.4(L) 3.6 - 4.9 mmol/L 11/10/2024 4:51 PM EDT [facility] Chloride, Plasma 106 97 - 107 mmol/L 11/10/2024 4:51 PM EDT [facility] CO2, Plasma 21(L) 22 - 29 mmol/L 11/10/2024 4:51 PM EDT [facility] Anion Gap 14 6 - 16 mmol/L 11/10/2024 4:51 PM EDT [facility] Total Calcium, Plasma 8.6(L) 8.9 - 10.2 mg/dL 11/10/2024 4:51 PM EDT [facility] Total Protein 7.4 6.3 - 7.9 g/dL 11/10/2024 4:51 PM EDT [facility] Albumin, Plasma 3.8 3.5 - 5.2 g/dL 11/10/2024 4:51 PM EDT [facility] AST, Plasma 36(H) 10 - 35 U/L 11/10/2024 4:51 PM EDT [facility] ALT, Plasma 20 10 - 35 U/L 11/10/2024 4:51 PM EDT [facility] Alkaline Phosphatase, Plasma 98 46 - 142 U/L 11/10/2024 4:51 PM EDT [facility] Total Bilirubin, Plasma 0.3 0.2 - 1.1 mg/dL 11/10/2024 4:51 PM EDT [facility] eGFRcr 91.4 mL/min/1.7 3m*2 11/10/2024 4:51 PM EDT [facility] Comment:Reported eGFRcr in m L/min/1.73m2 is based the CKD-EPI 2020 equation that does not use a race coefficient. Blood Venous blood specimen / Unknown Venipuncture / Unknown 11/10/2024 4:02 PM EDT 11/10/2024 4:18 PM EDT us Faustino Topete MD LAB BLOOD ORDERABLES Final R esult [facility] [address] [place] [address] * (ABNORMAL) CBC and differential (11/10/2024 4:02 PM EDT) WBC Count 6.30 3.70 - 10.30 10*3/uL LAB HEMATOLOGY METHOD 11/10/2024 5:55 PM EDT [facility] RBC Count 4.67 3.90 - 5.20 10*6/uL LAB HEMATOLOGY METHOD 11/10/2024 5:55 PM EDT [facility] HGB 11.7 11.2 - 15.7 g/dL LAB HEMATOLOGY METHOD 11/10/2024 5:55 PM EDT [facility] HCT 37.8 34.0 - 45.0 % LAB HEMATOLOGY METHOD 11/10/2024 5:55 PM EDT [facility] Platelet Count 138(L) 155 - 369 10*3/uL LAB HEMATOLOGY METHOD 11/10/2024 5:55 PM EDT [facility] MCV 81 79 - 98 fL LAB HEMATOLOGY METHOD 11/10/2024 5:55 PM EDT [facility] MCH 25.1(L) 26.0 - 32.0 pg LAB HEMATOLOGY METHOD 11/10/2024 5:55 PM EDT [facility] MCHC 31.0 30.7 - 35.5 g/dL LAB HEMATOLOGY METHOD 11/10/2024 5:55 PM EDT [facility] RDW 16.1(H) 11.5 - 14.5 % LAB HEMATOLOGY METHOD 11/10/2024 5:55 PM EDT [facility] MPV LAB HEMATOLOGY METHOD 11/10/2024 5:55 PM EDT [facility] Comment:Not Measured nRBC 0.0 <=0.0 per 100 WBCs LAB HEMATOLOGY METHOD 11/10/2024 5:55 PM EDT [facility] Differential Type Automated LAB HEMATOLOGY METHOD 11/10/2024 5:55 PM EDT [facility] Neutrophils % 75 % LAB HEMATOLOGY METHOD 11/10/2024 5:55 PM EDT [facility] Lymphocytes % 15 % LAB HEMATOLOGY METHOD 11/10/2024 5:55 PM EDT [facility] Monocytes % 9 % LAB HEMATOLOGY METHOD 11/10/2024 5:55 PM EDT [facility] Eosinophils % 1 % LAB HEMATOLOGY METHOD 11/10/2024 5:55 PM EDT [facility] Basophils % 0 % LAB HEMATOLOGY METHOD 11/10/2024 5:55 PM EDT [facility] Immature Granulocytes % 0 % LAB HEMATOLOGY METHOD 11/10/2024 5:55 PM EDT [facility] Neutrophils Absolute 4.69 1.60 - 6.10 10*3/uL LAB HEMATOLOGY METHOD 11/10/2024 5:55 PM EDT [facility] Lymphocytes Absolute 0.95(L) 1.20 - 3.90 10*3/uL LAB HEMATOLOGY METHOD 11/10/2024 5:55 PM EDT [facility] Monocytes Absolute 0.54 0.30 - 0.90 10*3/uL LAB HEMATOLOGY METHOD 11/10/2024 5:55 PM EDT [facility] Eosinophils Absolute 0.08 0.00 - 0.50 10*3/uL LAB HEMATOLOGY METHOD 11/10/2024 5:55 PM EDT [facility] Basophils Absolute 0.02 0.00 - 0.10 10*3/uL LAB HEMATOLOGY METHOD 11/10/2024 5:55 PM EDT [facility] Immature Granulocytes Absolute 0.02 0.00 - 0.06 10*3/uL LAB HEMATOLOGY METHOD 11/10/2024 5:55 PM EDT [facility] Blood Venous blood specimen / Unknown Venipuncture / Unknown 11/10/2024 4:02 PM EDT 11/10/2024 4:27 PM EDT [facility] - 11/10/2024 5:55 PM EDT Therapeutic decision making should be based on absolute values, rather than percentages. us Faustino Topete MD LAB BLOOD ORDERABLES Final R esult [facility] [address] [place] [address] documented in this encounter Visit Diagnoses Diagnosis [...] documented as of this encounter Care Teams Leathersmith Relationship Specialty Start Date End Date Armani Campa MD [address] [place] [address] PCP - General 10/19/22 Kylee James APRN [address] [place] [phone] Nurse Practitioner Medical Oncology 03/30/23 Faustino Topete MD [address] [place] [phone] Consulting Physician Medical Oncology 12/01/23 documented as of this encounter
--- OUTSIDE RECORDS SUMMARY | 2024-12-05 10:30 | XMS_ITS | Encounter Summary ---
Author Organization [facility] Address [address] [place] [address] Care Team Providers Care Art Installer Name Role Phone Armani Campa MD Primary Care Provider [phone] Kylee James FOX RAISER Unavailable [phone] Faustino Topete MD Unavailable [phone] Reason for Visit * Reason Comments Routine Follow-up Encounter Details Date Type Department Care Team (Late st Contact Info) Description 12/05/2024 10:30 AM EDT Office Visit [facility] Multidisciplinary Oncology Clinic [address] [place] [address] Shannon Aguero, FOX RAISER 800 [facility] [address] [place] [address] Metastatic malignant neuroendocrine tumor to [...] by your partner or ex-partner? No 12/01/2023 PHQ-2 Answer Date Recorded Patient Health Questionnaire-2 Score 0 12/05/2024 Hunger Vital Sign Answer Date Recorded Within [...] place to sleep or slept in a fci (including now)? No 12/01/2023 CAGE ASSESSMENT Answer [...] drink first t volodymyr in the morning (EYE-ULTRASOUND SPEC) to steady your nerves or to get [...] on file documented as of this encounter Functional Status * Over the past 2 weeks, how often have you been bothered by any of the following problems? Question Answer Date of Assessment Author Little interest or pleasure in doing things Not at all 12/05/2024 10:38 AM EDT Jose Navas Feeling down, depressed, or hopeless Not at all 12/05/2024 10:38 AM EDT Jose Navas T Patient Health Questionnaire-2 Score 0 12/05/2024 10:38 AM EDT Jose Navas documented as of this encounter Miscellaneous Notes * Progress Notes - Shannon Aguero APRN - 12/05/2024 10:30 AM EDT Medical Oncology Clinic Note Patient Name: Radha Vidales Date of : 1945 79 y.o. Referring Physician:No referring provider defined for this encounter. Encounter Date: 12/05/2024 Interval History: The patient presents today for follow up and continuation of treatment with Octreotide that she uses about one time per day prn. She continues to get IVFs at [facility] once a week. She is staking KCL 20 meq daily. Diarrhea well controlled with Lomotil and Octreotide prn. Has good QOL and seems to be handling disease/treatment well. No other significant clinical findings. Oncology History: Oncology History Malignant neuroendocrine neoplasm (CMS/HCC) 09/05/2020 Cancer Staged Staging form: Jejunum and Ileum - Neuroendocine Tumors, AJCC 8th Edition, Clinical stage from 09/05/2020: Stage IV (cT0, cM1b) - Signed by Faustino Topete MD on 10/22/2022 10/22/2022 Initial Diagnosis Malignant neuroendocrine neoplasm (CMS/HCC) Past Medical, Surgical, Family and Social History: Reviewed, and unchanged from most recent clinic visit or updated as indicated. Allergies and Adverse Drug Reactions: Patient has no known allergies. Medications: Reviewed Review of Systems: 14 pt review of systems performed and negative except as noted in HPI. Physical Exam: ECO General: Sitting/resting comfortably in chair, NAD HEENT: NCAT, PERRLA/EOMI, anicteric; no oral lesions per patient report Neck: Supple, no lymphadenopathy or JVD per patient report Heart: RRR, no MGR per patient report Lungs: CTAB; no rales, rhonchi or wheezes per patient report Abdomen: Soft, NTND, + BS per patient report Extremities: No edema, distal pulses intact per patient report Musculoskeletal: No focal tenderness or deformity per patient report Skin: No visible rashes or lesions per patient report Neuro: Grossly nonfocal; no localizing deficits of strength, sensation, or mentation Psychiatric: Normal mood and thought content LABS: No visits with results within 3 Day(s) from this visit. Latest known visit with results is: Office Visit on 11/10/2024 Component Date Value WBC Count 11/10/2024 6.30 RBC Count 11/10/2024 4.67 HGB 11/10/2024 11.7 HCT 11/10/2024 37.8 Platelet Count 11/10/2024 138 (L) MCV 11/10/2024 81 MCH 11/10/2024 25.1 (L) MCHC 11/10/2024 31.0 RDW 11/10/2024 16.1 (H) MPV 11/10/2024 nRBC 11/10/2024 0.0 Differential Type 11/10/2024 Automated Neutrophils % 11/10/2024 75 Lymphocytes % 11/10/2024 15 Monocytes % 11/10/2024 9 Eosinophils % 11/10/2024 1 Basophils % 11/10/2024 0 Immature Granulocytes % 11/10/2024 0 Neutrophils Absolute 11/10/2024 4.69 Lymphocytes Absolute 11/10/2024 0.95 (L) Monocytes Absolute 11/10/2024 0.54 Eosinophils Absolute 11/10/2024 0.08 Basophils Absolute 11/10/2024 0.02 Immature Granulocytes Ab* 11/10/2024 0.02 Glucose, Plasma 11/10/2024 92 BUN, Plasma 11/10/2024 14 Creatinine, Plasma 11/10/2024 0.57 (L) BUN/Creatinine Ratio 11/10/2024 25 Sodium, Plasma 11/10/2024 141 Potassium, Plasma 11/10/2024 3.4 (L) Chloride, Plasma 11/10/2024 106 CO2, Plasma 11/10/2024 21 (L) Anion Gap 11/10/2024 14 Total Calcium, Plasma 11/10/2024 8.6 (L) Total Protein 11/10/2024 7.4 Albumin, Plasma 11/10/2024 3.8 AST, Plasma 11/10/2024 36 (H) ALT, Plasma 11/10/2024 20 Alkaline Phosphatase, Pl* 11/10/2024 98 Total Bilirubin, Plasma 11/10/2024 0.3 eGFRcr 11/10/2024 91.4 SEROTONIN 11/10/2024 1449 (H) CHROMOGRANIN A 11/10/2024 1622 (H) Fasting greater than or * 11/10/2024 Yes 5-Hydroxyindoleacetic Ac* 11/10/2024 58 (H) Magnesium, Plasma 11/10/2024 1.5 (L) RADIOLOGY: No image results found. ASSESSMENT AND PLAN: A: Clinically improved with recent D/C from [...] serotonin but low tumor bulk P: - Continue octreotide to 200 mcg TID prn - No labs drawn today since this was a Telehealth visit - Continue imodium/lomotil - Continue to get IVF's once a week at [facility] in [place] - She prefers not to get scanned at this time - Continue KCL 20 meq daily Telehealth Statement Patient Verification Patient identity has been confirmed using name and date of ? Yes Authorizations and Agreements/Telemedicine Consent sent and consent confirmed? Yes Patient Location: Home/Other Patient confirms they are physically located in [place]? Yes If the patient is not physically located in [place], the provider has confirmed with [facility] thatthe provider is authorized to provide services in patient's stated location? N/A Provider Location: [facility] facility Audio and video or audio only? Audio and video The selection, dosing and administration of anti-cancer agents and the management of associated toxicities requires complex medical decision making and intensive monitoring for toxicity. Modifications of drug dose and schedule as well as the initiation of supportive care interventions are often necessary because of expected toxicities. This varies individually based on patient tolerability, priortreatments and comorbidities/risk status. Monitoring typically entails labs, imaging and/or other diagnostics, utilizing a healthcare delivery team experienced in the use of anticancer agents and themanagement of associated toxicities in patients with cancer. 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)- Primary documented in this encounter Additional Health Concerns Assessment Noted Time A fall risk assessment has been complete d for the patient 12/05/2024 10:38 AM EDT A Body Mass Index follow-up plan has been documented for the patient 12/13/2023 2:27 PM EDT documented as of this encounter Care Teams Art Installer Relationship Specialty Start Date End Date Armani Campa MD [address] [place] [address] PCP - General 10/19/22 Kylee James APRN [address] Rosemarie Cheung [address] [address] Nurse Practitioner Medical Oncology 03/30/23 Faustino Topete MD [address] [facility] [address] [place] [address] Consulting Physician Medical Oncology 12/01/23 documented as of this encounter
--- OUTSIDE RECORDS SUMMARY | 2024-12-15 10:58 | XMS_ITS | Encounter Summary ---
Author Organization [facility] Address [address] [place] [address] Care Team Providers Care Non Emergency Services Ambulance Driver Name Role Phone Armani Campa MD Primary Care Provider + Reason for Visit * Reason Onset Date Comments MEDICATION ISSUE 11/07/2024 Encounter Details Date Type Department Care Team (Late st Contact Info) Description 11/07/2024 Telephone [facility] [address] [place] [address] rAmani Campa MD [address] [place] [address] MEDICATION ISSUE Social History Tobacco Use Types Packs/Day Years Used Date Smoking Tobacco: Never Smokeless Tobacco: Never Alcohol Use Standard Drinks/Week Comments Never 0 (1 standard drink = 0.6 oz pur e alcohol) PHQ-2 Answer Date Recorded Retired PHQ-9: Brief Depression Severity Measure Score 0 07/02/2022 PHQ-2 Answer Date Recorded Patient Health Questionnaire-2 Score 0 08/14/2024 Comments Unknown Sex and Gender Information Value Date Recorded Sex Assigned at Female 08/14/2024 7:23 AM EDT Legal Sex Female 10:26 AM EDT Gender Identity Not on file Sexual Orientation Straight 08/14/2024 7: 23 AM EDT documented as of this encounter Miscellaneous Notes * Telephone Encounter - Zac Saleem RegSched Rep - 11/07/2024 2:49 PM EDT Caller: Vidales Radha Jessica Davis Relationship: Self Best call back number: [phone] What was the call regarding: PHARMACY IS HAVING TROUBLE FINDING THE BRAND NAME FOR HER POTASSIUM. THEY SAID IF IT'S CHANGED TO GENERIC THEY CAN GET THAT. Is it okay if the provider responds through MyChart: NO documented in this encounter Plan of Treatment Upcoming Encounters Date Type Department Care Team (Late st Contact Info) Description 02/15/2025 3:15 PM EDT Office Visit [facility] [address] [facility] [place] [phone] Armani Campa MD [address] [place] [address] documented as of this encounter Visit Diagnoses Diagnosis Hypokalemia Hypopotassemia documented in this encounter Additional Health Concerns Assessment Noted Time PHQ-2 Depression Total Score: 1 02/15/20 24 10:24 AM EDT documented as of this encounter Care Teams Non Emergency Services Ambulance Driver Relationship Specialty Start Date End Date Armani Campa MD [address] [place] [address] PCP - General Family Medicine 12/25/21 documented as of this encounter
--- OUTSIDE RECORDS SUMMARY | 2024-12-15 10:58 | XMS_ITS | Encounter Summary ---
Author Organization [facility] Address [address] [place] [address] Care Team Providers Care Linux Server Administrator Name Role Phone Armani Cortes MD Primary Care Provider + Reason for Visit * Reason Onset Date Comments Med Management 11/06/2024 Encounter Details Date Type Department Care Team (Late st Contact Info) Description 11/06/2024 Telephone [facility] [address] [place] [address] Armani Cortes MD [address] [place] [address] Med Management Social History Tobacco Use Types Packs/Day Years [...] encounter Miscellaneous Notes * Telephone Encounter - Kianna Giraldo RegSched Rep - 11/06/2024 1:04 PM EDT Pharmacy Name: [facility] Pharmacy claim service representative phone number: [phone] What medication are you calling in regards to: LOMOTIL What question does the pharmacy have: WRITTEN BRAND NAME ONLY, CAN THIS BE SWAPPED TO GENERIC BECAUSE THAT IS WHAT INSURANCE WILL COVER. 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
--- OUTSIDE RECORDS SUMMARY | 2024-12-15 10:58 | XMS_ITS | Encounter Summary ---
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 Pharmacy where request should be sent: [facility] [place] [facility] [address] [phone] [facility] [phone] Last office visit with prescribing clinician: 10/10/2024 Last telemedicine visit with prescribing clinician: Visit date not found Next office visit with prescribing clinician: 02/15/2025 Does the patient have less than a 3 day supply: [x] Yes [] No Would you like a call back once the refill request has been completed: [] Yes [] No If the office needs to give you a call back, can they leave a voicemail: [] Yes [] No Phill Shahid 11/06/24 10:52 EDT documented in this encounter Plan of Treatment Upcoming Encounters Date Type Department Care Team (Late st Contact Info) Description 02/15/2025 3:15 PM EDT Office Visit [facility] [address] [facility] [phone] Armani Campa MD [address] [place] [address] documented as of this encounter Visit Diagnoses 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
--- OUTSIDE RECORDS SUMMARY | 2024-12-15 10:58 | XMS_ITS | Encounter Summary ---
Author Organization [facility] Address [address] [place] [address] Care Team Providers Care Embryology Professor Name Role Phone Armani Campa MD Primary Care Provider + Encounter Details Date Type Department Care Team (Late st Contact Info) Description 10/11/2024 Results Follow-Up [facility] [address] [place] [address] Armani Campa MD [address] [place] [address] Social History Tobacco Use Types Packs/Day Years [...] AM EDT documented as of this encounter Plan of Treatment Upcoming Encounters Date Type Department Care Team (Late st Contact Info) Description 02/15/2025 3:15 PM EDT Office Visit [facility] [address] [place] [address] Armani Campa MD [address] [facility] [place] [address] documented as of this encounter Visit Diagnoses Not on filedocumented in this encounter Additional Health Concerns Assessment Noted Time PHQ-2 Depression Total Score: 1 02/15/20 24 10:24 AM EDT documented as of this encounter Care Teams Embryology Professor Relationship Specialty Start Date End Date Armani Campa MD [address] [place] [address] PCP - General Family Medicine 12/25/21 documented as of this encounter
--- OUTSIDE RECORDS SUMMARY | 2024-12-15 10:58 | XMS_ITS | Encounter Summary ---
Author Organization [facility] Address [address] [place] [address] Care Team Providers Care Stuffing Machine Operator Name Role Phone Armani Campa MD Primary Care Provider + Encounter Details Date Type Department Care Team (Late st Contact Info) Description 08/15/2024 Results Follow-Up [facility] [address] [place] [address] Armani Campa MD [address] [place] [address] Social History Tobacco Use Types [...] Description 02/15/2025 3:15 PM EDT Office Visit [facility] [address] [place] [address] Armani Campa MD [address] [facility] [place] [address] documented as of this encounter Visit Diagnoses Not on filedocumented in this encounter Additional Health Concerns Assessment Noted Time PHQ-2 Depression Total Score: 1 02/15/20 24 10:24 AM EDT documented as of this encounter Care Teams Stuffing Machine Operator Relationship Specialty Start Date End Date Armani Campa MD [address] [place] [address] PCP - General Family Medicine 12/25/21 documented as of this encounter
--- OUTSIDE RECORDS SUMMARY | 2024-12-15 10:58 | XMS_ITS | Encounter Summary ---
Author Organization [facility] Address [address] [place] [address] Care Team Providers Care Perforator Name Role Phone Armani Campa MD Primary Care Provider [phone] Kylee James APRN Unavailable [phone] Faustino Topete MD Unavailable [phone] Encounter Details Date Type Department Care Team (Late st Contact Info) Description 10/24/2024 Telephone [facility] [address] [place] [address] Faustino Topete MD 800 [facility] [address] [place] [address] Social History Tobacco Use Types [...] place to sleep or slept in a half-way (including now)? No 12/01/2023 CAGE ASSESSMENT Answer [...] drink first t volodymyr in the morning (EYE-ZINC MINER) to steady your nerves or to get [...] 11/10 appt with Efrem. If he needs azne a different day, that is ok too as long as its prior to 11.10 Best contact number and optimal time of day to reach caller:[phone] Note: Please do not reply to this message. Follow-up communication and further actions as a result of this message need to be communicated with the patient directly, if the patient is not active onMyChart. If the patient is active on MyChart, they will receive notification of the communication/outcome via [employer]. documented in this encounter Plan of Treatment [...] documented as of this encounter Care Teams Perforator Relationship Specialty Start Date End Date Armani Campa MD [address] [place] [address] PCP - General 10/19/22 Kylee James APRN [address] [place] Jonatan [facility] [address] [place] [address] Nurse Practitioner Medical Oncology 03/30/23 Faustino Topete MD [address] [facility] [address] [address] Consulting Physician Medical Oncology 12/01/23 documented as of this encounter
--- OUTSIDE RECORDS SUMMARY | 2024-12-15 10:58 | XMS_ITS | Encounter Summary ---
Author Organization [facility] Address [address] [place] [address] Care Team Providers Care Motor Racer Name Role Phone Armani Campa MD Primary Care Provider [phone] Kylee James APRN Unavailable [phone] Faustino Topete MD Unavailable [phone] Encounter Details Date Type Department Care Team [...] drink first t volodymyr in the morning (EYE-CRUISE CONSULTANT) to steady your nerves or to get rid of a hangover? 0 12/02/2023 CAGE Questionnaire Score 0 024 Utilities Answer Date Recorded In the past 12 months has th e [employer], gas, oil, or water Exiles threatened to shut off services in your [...] documented as of this encounter Care Teams Motor Racer Relationship Specialty Start Date End Date Armani Campa MD [address] [place] [address] PCP - General 10/19/22 Kylee James APRN [address] [address] Nurse Practitioner Medical Oncology 03/30/23 Faustino Topete MD [address] [address] Consulting Physician Medical Oncology 12/01/23 documented as of this encounter
--- OUTSIDE RECORDS SUMMARY | 2024-12-15 10:58 | XMS_ITS | Encounter Summary ---
Author Organization [facility] Address [address] [place] [address] Care Team Providers Care Quality Assurance Name Role Phone Armani Campa MD Primary Care Provider + Reason for Visit * Reason Onset Date Comments New Med Request 11/02/2024 Encounter Details Date Type Department Care Team (Late st Contact Info) Description 11/02/[address] [facility] [address] [place] [address] Armani Campa MD [address] [place] [address] New Med Request Social History Tobacco Use Types Packs/Day Years [...] encounter Miscellaneous Notes * Telephone Encounter - Angella Verdin RegSched Rep - 11/02/2024 12:47 PM EDT Caller: FlashRadha Relationship: Self Best call back number: [phone] What medication are you requesting: POTASSIUM Have you had these symptoms before: [x] Yes [] No Have you been treated for these symptoms before: [x] Yes [] No If a prescription is needed, what is your preferred pharmacy and phone number: [facility]- [place], [place] - [address] [phone] [facility] [phone] FX Additional notes: documented in this encounter Plan of Treatment Upcoming Encounters Date Type Department Care Team (Late st Contact Info) Description 02/15/2025 3:15 PM EDT Office Visit [facility] [address] [place] [phone] Armani Campa MD [address] [place] [address] documented as of this encounter Visit Diagnoses Diagnosis Hypokalemia- Primary Hypopotassemia documented in this encounter Additional Health Concerns Assessment Noted Time PHQ-2 Depression Total Score: 1 02/15/20 24 10:24 AM EDT documented as of this encounter Care Teams Quality Assurance Relationship Specialty Start Date End Date Armani Campa MD [address] [place] [address] PCP - General Family Medicine 12/25/21 documented as of this encounter
--- OUTSIDE RECORDS SUMMARY | 2024-12-15 10:58 | XMS_ITS | Encounter Summary ---
Author Organization [facility] Address [address] [place] [address] Care Team Providers Care Leather Carver Name Role Phone Armani Campa MD Primary Care Provider [phone] Kylee James APRN Unavailable [phone] Faustino Topete MD Unavailable [phone] Encounter Details Date Type Department Care Team [...] drink first t volodymyr in the morning (EYE-AUTO BODY MAN) to steady your nerves or to get [...] documented as of this encounter Care Teams Leather Carver Relationship Specialty Start Date End Date Armani Campa MD [address] [place], [place] [id number] PCP - General 10/19/22 Kylee James APRN [address] [address] Nurse Practitioner Medical Oncology 03/30/23 Faustino Topete MD [address] [address] Consulting Physician Medical Oncology 12/01/23 documented as of this encounter
--- OUTSIDE RECORDS SUMMARY | 2024-12-15 10:59 | XMS_ITS | Encounter Summary ---
Author Organization [facility] Address [address] [place] [address] Care Team Providers Care Resident Assistant Name Role Phone Armani Campa MD Primary Care Provider [phone] Kylee James ACCESS CONSULTANT Unavailable [phone] Faustino Topete MD Unavailable [phone] Encounter Details Date Type Department Care Team (Late st Contact Info) Description 11/15/2024 Orders Only [facility] [address] [place] [address] Faustino Topete MD 800 [facility] [address] [place] [address] Metastatic malignant neuroendocrine tumor to [...] drink first t volodymyr in the morning (EYE-RESIN MAKER) to steady your nerves or to get rid of a hangover? 0 12/02/2023 CAGE Questionnaire Score 0 024 Utilities Answer Date Recorded In the past 12 months has th e [employer], gas, oil, or water company threatened to [...] documented as of this encounter Care Teams Resident Assistant Relationship Specialty Start Date End Date Armani Campa MD [address] [place] [address] PCP - General 10/19/22 Kylee James APRN [address] Cheung [facility] [address] [place] [address] Nurse Practitioner Medical Oncology 03/30/23 Faustino Topete MD [address] Cheung [facility] [address] [place] [address] Consulting Physician Medical Oncology 12/01/23 documented as of this encounter
--- OUTSIDE RECORDS SUMMARY | 2024-12-15 10:59 | XMS_ITS | Encounter Summary ---
Author Organization [facility] Address [address] [place] [address] Care Team Providers Care Head Batcher Name Role Phone Armani Campa MD Primary Care Provider [phone] Kylee James APRN Unavailable [phone] Faustino Topete MD Unavailable [phone] Encounter Details Date Type Department Care Team [...] drink first t volodymyr in the morning (EYE-ELECTRICAL PANEL BUILDER) to steady your nerves or to get [...] documented as of this encounter Care Teams Head Batcher Relationship Specialty Start Date End Date Armani Campa MD [address] [place], [place] [id number] PCP - General 10/19/22 Kylee James APRN [address] [address] Nurse Practitioner Medical Oncology 03/30/23 Faustino Topete MD [address] [address] Consulting Physician Medical Oncology 12/01/23 documented as of this encounter
--- OUTSIDE RECORDS SUMMARY | 2024-12-15 10:59 | XMS_ITS | Clinical Summary ---
Author Organization [facility] Address [address] [place] [address] Care Team Providers Care Food Mixer Name Role Phone Armani Campa MD Primary Care Provider Kylee James APRN Unavailable [phone] Faustino Topete MD Unavailable [phone] Allergies No known active allergies Medications alendronate [...] (diarrhea). 90 mL 5 11/22/19 25 Active [employer] [place] Please dispense appropriate needles and syringes for octreotide injection 90 each 3 11/30/19 25 Active UltiCare Insulin Syringe 31G X 10/13 0.3 [facility] 12/05/19 Active KLOR-CON 20 MEQ ER tablet [...] on 10/22/2022 Metastatic malignant neuroendocrine tumor to [facility] er 10/22/2022 Age-related osteoporosis wit hout current pathological fracture 12/25/2021 Essential hypertension 12/25/2021 S/P TKR (total knee replacement), left Primary osteoarthritis of right knee 12/25/2021 Resolved Problems Problem Noted Date Diagnosed Date Resolved Date Small bowel obstruction 11/19/2023 06/2 12/2023 Encounters Date Type Department Care Team Description 12/05/2024 10:30 AM EDT Office Visit [facility] [address] [place] [phone] Shannon Aguero, MANAGER WAREHOUSE 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) 12/05/2024 Travel 11/29/2024 Refill [facility] [address] [place] [phone] Marlin Guevara, PharmD 11/21/2024 Telephone [facility] [address] [place] [address] Noble Burrell, PharmD new start 11/21/2024 Refill [facility] [address] [place] [phone] Faustino Topete MD Malignant neuroendocrine neoplasm (CMS/HCC) 11/15/2024 Orders Only [facility] [address] [place] [phone] Faustino Topete MD 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) 11/13/2024 Telephone [facility] [address] [place] [phone] Faustino Topete MD 11/10/2024 2:00 PM EDT Office Visit [facility] [address] [place] [phone] Faustino Topete MD 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); 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); Diarrhea, unspecified type 11/10/2024 Travel 11/09/2024 Travel 10/24/2024 Telephone [facility] [address] [place] [phone] Faustino Topete MD 10/11/2024 Telephone [facility] [address] [place] [address] Faustino Topete MD from Last 3 Months Immunizations Immunization Administration Dates Next Due Influenza, high-dose, quadrivalent 03/11/2022 Joselo COVID-19 Vaccine (Blue Cap) 18+ 08/08/19 21 Moderna COVID-19 Vaccine (Sourcing Intern) 12+ years Moderna COVID-19 Vaccine Bivalent 6months+ [...] drink first t volodymyr in the morning (EYE-PUNCH OPERATOR) to steady your nerves or to [...] Years (1 of 2 - PCV) 1964 [id number] Vaccine ( season) 2024 03/12/2024, 03/12/2023, 03/11/2022, [...] 1622(H) <93 ng/mL 11/14/2024 6:56 PM EDT [facility] Comment: Impaired renal or hepatic function or treatment with proton pump inhibitors may result in artifactual elevations of Chromogranin A. ADDITIONAL INFORMATION The testing method is a homogeneous time-resolved immunofluorescent assay manufactured by [employer] and performed on the [employer] Kryptor Compact Plus. Values obtained with different [...] examination and other findings. Test Performed by: [address] [address] Grain Weigher: David Hawkins Ph.D.; CLIA# [id number] Blood Venous blood specimen / Unknown Venipuncture / Unknown 11/10/2024 4:02 PM EDT 11/10/2024 4:19 PM EDT Faustino Topete MD LAB BLOOD ORDERABLES Final R esult Performing Organization Address City/[facility]/ZIP Co de Phone Number [facility] ([facility]) * (ABNORMAL) 5-HIAA, Plasma (11/10/2024 4:02 PM EDT) Fasting greater than or equal to 8 hours? Yes 11/23/2024 4:20 PM EDT [facility] 5-Hydroxyindole acetic Acid (HIAA), Plasma 58(H) <=22 ng/ml 11/23/2024 4:20 PM EDT [facility] ([facility]) Blood Venous blood specimen / Unknown Venipuncture / Unknown 11/10/2024 4:02 PM EDT 11/10/2024 4:12 PM EDT Narrative [facility] ([facility]) - 11/23/2024 4:20 PM EDT This GCMS assay was developed and its performance characteristics determined by [facility]. It has not been cleared or approved by the FDA and such approval or clearance is not required at this time. Values obtained with different methods, different laboratories or with kits cannot be used interchangeably with the results on this report. The results cannot be interpreted as absolute evidence of the presence or absence of malignant disease. Performed By: [facility] [address] [place] [address]<lb> Faustino Topete MD LAB BLOOD ORDERABLES Final R esult [facility] ([facility]) [facility] [address] [facility] [place] [address] * (ABNORMAL) CBC and differential (11/10/2024 4:02 PM EDT) WBC Count 6.30 3.70 - 10.30 10*3/uL LAB HEMATOLOGY METHOD 11/10/2024 5:55 PM EDT [facility] RBC Count 4.67 3.90 - 5.20 10*6/uL LAB HEMATOLOGY METHOD 11/10/2024 5:55 PM EDT [facility] HGB 11.7 11.2 - 15.7 g/dL LAB HEMATOLOGY METHOD 11/10/2024 5:55 PM EDT [facility] HCT 37.8 34.0 - 45.0 % LAB HEMATOLOGY METHOD 11/10/2024 5:55 PM EDT [facility] Platelet Count 138(L) 155 - 369 10*3/uL LAB HEMATOLOGY METHOD 11/10/2024 5:55 PM EDT [facility] MCV 81 79 - 98 fL LAB HEMATOLOGY METHOD 11/10/2024 5:55 PM EDT [facility] MCH 25.1(L) 26.0 - 32.0 pg LAB HEMATOLOGY METHOD 11/10/2024 5:55 PM EDT [facility] MCHC 31.0 30.7 - 35.5 g/dL LAB HEMATOLOGY METHOD 11/10/2024 5:55 PM EDT [facility] RDW 16.1(H) 11.5 - 14.5 % LAB HEMATOLOGY METHOD 11/10/2024 5:55 PM EDT [facility] MPV LAB HEMATOLOGY METHOD 11/10/2024 5:55 PM EDT [facility] Comment:Not Measured nRBC 0.0 <=0.0 per 100 WBCs LAB HEMATOLOGY METHOD 11/10/2024 5:55 PM EDT [facility] Differential Type Automated LAB HEMATOLOGY METHOD 11/10/2024 5:55 PM EDT [facility] Neutrophils % 75 % LAB HEMATOLOGY METHOD 11/10/2024 5:55 PM EDT [facility] Lymphocytes % 15 % LAB HEMATOLOGY METHOD 11/10/2024 5:55 PM EDT [facility] Monocytes % 9 % LAB HEMATOLOGY METHOD 11/10/2024 5:55 PM EDT [facility] Eosinophils % 1 % LAB HEMATOLOGY METHOD 11/10/2024 5:55 PM EDT [facility] Basophils % 0 % LAB HEMATOLOGY METHOD 11/10/2024 5:55 PM EDT [facility] Immature Granulocytes % 0 % LAB HEMATOLOGY METHOD 11/10/2024 5:55 PM EDT [facility] Neutrophils Absolute 4.69 1.60 - 6.10 10*3/uL LAB HEMATOLOGY METHOD 11/10/2024 5:55 PM EDT [facility] Lymphocytes Absolute 0.95(L) 1.20 - 3.90 10*3/uL LAB HEMATOLOGY METHOD 11/10/2024 5:55 PM EDT [facility] Monocytes Absolute 0.54 0.30 - 0.90 10*3/uL LAB HEMATOLOGY METHOD 11/10/2024 5:55 PM EDT [facility] Eosinophils Absolute 0.08 0.00 - 0.50 10*3/uL LAB HEMATOLOGY METHOD 11/10/2024 5:55 PM EDT [facility] Basophils Absolute 0.02 0.00 - 0.10 10*3/uL LAB HEMATOLOGY METHOD 11/10/2024 5:55 PM EDT [facility] Immature Granulocytes Absolute 0.02 0.00 - 0.06 10*3/uL LAB HEMATOLOGY METHOD 11/10/2024 5:55 PM EDT [facility] Blood Venous blood specimen / Unknown Venipuncture / Unknown 11/10/2024 4:02 PM EDT 11/10/2024 4:27 PM EDT Narrative [facility] - 11/10/2024 5:55 PM EDT Therapeutic decision making should be based on absolute values, rather than percentages. us Faustino Topete MD LAB BLOOD ORDERABLES Final R esult [facility] [address] [place] [address] * (ABNORMAL) Serotonin, Serum (11/10/2024 4:02 PM EDT) SEROTONIN 1449(H) 50 - 220 ng/mL 11/13/2024 6:02 AM EDT [facility] ([facility]) Serum Venous blood specimen / Unknown 11/10/2024 4:02 PM EDT 11/10/2024 4:18 PM EDT Narrative [facility] ([facility]) - 11/13/2024 6:02 AM EDT TEST INFORMATION: Serotonin, Serum This test was developed and its performance characteristics determined by [facility]. It has not been cleared or approved by the [place] Food and Drug Administration. This test was performed in a CLIA certified laboratory and is intended for clinical purposes. Performed By: [facility] [address] [place] [id number] Commercial Drone Pilot: Kurt Borges MD, PhD CLIA Number: [id number] Faustino Topete MD LAB BLOOD ORDERABLES Final R esult Performing Organization Address City/[facility]/ZIP Co de Phone Number [facility] ([facility] [address] [place] [address] * (ABNORMAL) Magnesium (11/10/2024 4:02 PM EDT) Magnesium, Plasma 1.5(L) 1.9 - 2.4 mg/dL 11/10/2024 4:51 PM EDT [facility] Blood Venous blood specimen / Unknown Venipuncture / Unknown 11/10/2024 4:02 PM EDT 11/10/2024 4:18 PM EDT Faustino Topete MD LAB BLOOD ORDERABLES Final R esult Performing Organization Address City/[facility]/ZIP Co de Phone Number [facility] [address] [place] [address] * (ABNORMAL) Comprehensive metabolic panel (11/10/2024 4:02 PM EDT) Glucose, Plasma 92 74 - 99 mg/dL 11/10/2024 4:51 PM EDT [facility] BUN, Plasma 14 8 - 23 mg/dL 11/10/2024 4:51 PM EDT [facility] Creatinine, Plasma 0.57(L) 0.60 - 1.10 mg/dL 11/10/2024 4:51 PM EDT [facility] BUN/Creatinine Ratio 25 11/10/2024 4:51 PM EDT [facility] Sodium, Plasma 141 136 - 145 mmol/L 11/10/2024 4:51 PM EDT [facility] Potassium, Plasma 3.4(L) 3.6 - 4.9 mmol/L 11/10/2024 4:51 PM EDT [facility] Chloride, Plasma 106 97 - 107 mmol/L 11/10/2024 4:51 PM EDT [facility] CO2, Plasma 21(L) 22 - 29 mmol/L 11/10/2024 4:51 PM EDT [facility] Anion Gap 14 6 - 16 mmol/L 11/10/2024 4:51 PM EDT [facility] Total Calcium, Plasma 8.6(L) 8.9 - 10.2 mg/dL 11/10/2024 4:51 PM EDT [facility] Total Protein 7.4 6.3 - 7.9 g/dL 11/10/2024 4:51 PM EDT [facility] Albumin, Plasma 3.8 3.5 - 5.2 g/dL 11/10/2024 4:51 PM EDT [facility] AST, Plasma 36(H) 10 - 35 U/L 11/10/2024 4:51 PM EDT [facility] ALT, Plasma 20 10 - 35 U/L 11/10/2024 4:51 PM EDT [facility] Alkaline Phosphatase, Plasma 98 46 - 142 U/L 11/10/2024 4:51 PM EDT [facility] Total Bilirubin, Plasma 0.3 0.2 - 1.1 mg/dL 11/10/2024 4:51 PM EDT [facility] eGFRcr 91.4 mL/min/1.7 3m*2 11/10/2024 4:51 PM EDT [facility] Comment:Reported eGFRcr in m L/min/1.73m2 is based the CKD-EPI 2020 equation that does not use a race coefficient. Blood Venous blood specimen / Unknown Venipuncture / Unknown 11/10/2024 4:02 PM EDT 11/10/2024 4:18 PM EDT us Faustino Topete MD LAB BLOOD ORDERABLES Final R esult [facility] [address] [place] [address] from Last 3 Months Insurance [employer] MEDICARE [...] Patient has decision-making capacity? Yes Care Teams Food Mixer Relationship Specialty Start Date End Date Armani Campa MD [address] [place] [address] PCP - General 10/19/22 Kylee James APRN [address] [facility] [address] [place] [address] Nurse Practitioner Medical Oncology 03/30/23 Faustino Topete MD [address] [facility] [address] [place] [address] Consulting Physician Medical Oncology 12/01/23
--- OUTSIDE RECORDS SUMMARY | 2024-12-15 10:59 | XMS_ITS | Clinical Summary ---
Author Organization [facility] Address [address] [place] [address] Care Team Providers Care Plant And Equipment Worker Name Role Phone Armani Campa MD Primary Care Provider + Allergies No known active allergies Medications Lidocaine Viscous HCl (XYLOCAINE) 2 % solutionIndication s:Sore throat Take 10 mL by mouth Every 4 (Four) Hours As Needed for Moderate Pain. 100 mL 2 12/20/19 24 Active Additional Information Patient not taking.Reported on 10/10/2024 oxyCODONE (ROXICODONE) 5 MG immediate release tablet 12/13/19 24 Active ondansetron ODT (ZOFRAN-ODT) [address] 1 tablet on the tongue. 12/14/19 24 Active octreotide (sandoSTATIN) 200 MCG/ML injection Inject 1 mL into the appropriate muscle as directed by prescriber. 02/08/20 24 Active amLODIPine (NORVASC) 5 MG tabletIndications: Essential hypertension Take 1 tablet by mouth Daily. 90 tablet 1 02/15/20 24 Active prochlorperazine (COMPAZINE) 10 MG tablet Take 1 tablet by mouth Every 6 (Six) Hours As Needed for Nausea or Vomiting. 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 90 capsule 1 10/11/19 25 Active zoledronic acid (Reclast) 5 MG/100ML solution infusionIndication s:Age-related osteoporosis without current pathological fracture Infuse 100 mL into a venous catheter 1 (One) Time for 1 dose. 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 60 tablet 5 11/07/19 25 Active potassium chloride (Klor-Con M20) 20 MEQ CR tabletIndications: Hypokalemia Take 1 tablet by mouth Daily. 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 pain. Call for refills. F/U oncology in 2 weeks. Prognosis poor Gastrointestinal hemorrhage 01/21/2023 Neuroendocrine tumor 12/25/2021 S/P TKR (total knee replacement), left Primary osteoarthritis of right knee 12/25/2021 Essential hypertension 12/25/2021 Assessment & Plan (02/15/2024 12:05 PM EDT): Hypertension is uncontrolled Medication changes per orders. Blood pressure will be reassessedin 6 months. Age-related osteoporosis wit hout current pathological fracture 12/25/2021 Overactive bladder 12/25/2021 Hypokalemia 12/25/2021 [facility] (current) use of n on-steroidal anti-inflammatories (nsaid) 12/25/2021 Encounters Date Type Department Care Team Description 11/07/2024 Telephone [facility] [address] [place] [address] Armani Campa MD MEDICATION ISSUE 11/06/2024 Telephone [facility] [address] [place] [address] Armani Campa MD Med Management 11/06/2024 Refill [facility] [address] [place] [address] Armani Campa MD 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); Hypokalemia; Age-related osteoporosis without current pathological fracture; Essential hypertension 10/10/2024 Travel from Last 3 Months Immunizations Immunization Administration Dates Next Due Arexvy (RSV, Adults 60+ yrs) 03/12/2024 COVID-19 (MODERNA) BIVALENT 12+YRS 03/11/2022 COVID-19 (MODERNA) Monovalent Original Booster 1 06/29/2020 Fluzone High-Dose 65+YRS 02/28/2024 Fluzone High-Dose 65+yrs 03/12/2023,03/11/2022 Pneumococcal Conjugate 20-Valent (PCV20) 023 Shingrix 12/20/2017,09/24/2017 Tdap 12/21/2023,02/23/2022 Family History Medical History Relation Name Comments Diabetes Mother Mom Relation Name Status Comments Mother Mom Social History Tobacco Use Types Packs/Day Years [...] Orientation Straight 08/14/2024 7: 23 AM EDT Last Filed Vital Signs Vital Sign Reading Time Taken Comments Blood Pressure 128/74 10/10/2024 10:50 AM EDT Pulse 88 10/10/2024 10:50 AM EDT Temperature 36.4 C (97.6 F) 10/10/2024 10:50 AM EDT Respiratory Rate 20 08/14/2024 1:59 PM EDT Oxygen Saturation 97% 10/10/2024 10:50 AM EDT Inhaled Oxygen Concentration - - Weight 51.9 kg (114 lb 6.4 oz) 10/10/2024 10:50 AM EDT Height 154.9 cm (5' 1 ) 10/10/2024 10:50 AM EDT Body Mass Index 21.62 10/10/2024 10:50 AM EDT Plan of Treatment Upcoming Encounters Date Type Department Care Team (Late st Contact Info) Description 02/15/2025 3:15 PM EDT Office Visit [facility] [address] [facility] [place] [address] Armani Campa MD [address] [place] [address] Health Maintenance Due Date Last Done Comments DXA SCAN 01/29/2024 01/28/2022, 01/28/2022 COVID-19 Vaccine (2023-2 5 season) 2024 03/12/2024, 03/12/2023, 03/11/2022, Additional history exists ANNUAL WELLNESS VISIT 02/14/2025 02/15/2024 , 02/15/2024, 07/02/2022, Additional history exists INFLUENZA VACCINE 02/28/2025 02/28/2024, , 03/11/2022, Additional history exists TDAP/TD VACCINES (3 - Td or Tdap) 12/20/2033 024, 02/23/2022 ZOSTER VACCINE Completed 12/20/2017, 09/24/2017 Pneumococcal Vaccine 50+ Completed 05/07/2023 RSV Vaccine - Adults Completed 03/12/2024 Procedures Procedure Name Priority Date/Time Associated Diagnosis Comments POTASSIUM Routine 10/10/2024 11:18 AM EDT Hypokalemia SCANNED - DEXA 01/28/2022 from Last 3 Months or Most Recently Relevant to Health Maintenance Results * Potassium (10/10/2024 11:18 AM EDT) Potassium 3.7 3.5 - 5.2 mmol/L [facility] Blood 10/10/2024 11:1 8 AM EDT 10/10/2024 Narrative [facility] (AMBULATORY) - 10/11/2024 4:07 AM EDT Performed at: - [address] [id number] Sole Cementer: Huang Medina PhD, Phone: [phone] Patient Fasting: N Armani Campa MD LAB BLOOD ORDERABLES Fin al Result [facility] (AMBULATORY) [address] [id number], [facility] [address] [place] [address], [place] [phone] * SCANNED - DEXA (01/28/2022) Anatomical Region Laterality Modality Other Armani Campa MD CHART REVIEW TABS Fin al Result from Last 3 Months or Most Recently Relevant to Health Maintenance Insurance [employer] HMO Advance Directives Documents on File Type Date Recorded 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, 05/20/2021 Care Teams Plant And Equipment Worker Relationship Specialty Start Date End Date Armani Campa MD [address] [facility] [place] [address] PCP - General Family Medicine 12/25/21
--- OUTSIDE RECORDS SUMMARY | 2024-12-15 10:59 | XMS_ITS | Encounter Summary ---
Author Organization [facility] Address [address] [place] [address] Care Team Providers Care Tankage Grinder Name Role Phone Armani Campa MD Primary Care Provider [phone] Kylee James APRN Unavailable [phone] Faustino Ruano MD Unavailable [phone] Encounter Details Date Type Department Care Team (Late st Contact Info) Description 11/13/2024 Telephone [facility] [address] [place] [address] Faustino Ruano MD [address] [facility] [address] [place] [address] Social History Tobacco Use Types [...] drink first t volodymyr in the morning (EYE-RENTAL SALES ASSOCIATE) to steady your nerves or to [...] Not at all 12/05/2024 10:38 AM EDT Alma Delianoamgeorgette Aramisanita Ev an T Feeling down, depressed, or hopeless Not at all 12/05/2024 10:38 AM EDT LlnoamitJose Ev an T Patient Health Questionnaire-2 Score 0 12/05/2024 10:38 AM EDT Ll[facility] Aramisanita Ashish T documented as of this encounter Miscellaneous Notes * Telephone Encounter - Jacquelin Tobias RN - 11/15/2024 4:48 PM EDT Msg was left IVF order sent in to [facility] and noted dr ruano's message on the serotonin level * Telephone Encounter - Leticia Bowen - 11/13/2024 12:18 PM EDT Melody not listed on pts preferred contacts, no answer from pt. * Telephone Encounter - Fransisca Jasso - 11/13/2024 11:39 AM EDT Patient Phone Message Reason for Call: Melody was worried about her serotonin level and IV fluids in her hometown [facility]- Can you Melody back? Best contact number and optimal time of day to reach caller: [phone] Note: Please do not reply to this message. Follow-up communication and further actions as a result of this message need to be communicated with the patient directly, if the patient is not active onMyChart. If the patient is active on MyChart, they will receive notification of the communication/outcome via [facility]. documented in this encounter Plan of Treatment [...] documented as of this encounter Care Teams Tankage Grinder Relationship Specialty Start Date End Date Armani Campa MD [address] [place] [address] PCP - General 10/19/22 Kylee James APRN [address] [place] [place] [address] [address] Nurse Practitioner Medical Oncology 03/30/23 Faustino Ruano MD [address] [place] [place] [address] [address] Consulting Physician Medical Oncology 12/01/23 documented as of this encounter
--- OUTSIDE RECORDS SUMMARY | 2024-12-15 10:59 | XMS_ITS | Encounter Summary ---
Author Organization [facility] Address [address] [place] [address] Care Team Providers Care Academic Coach Name Role Phone Armani Campa MD Primary Care Provider [phone] Kylee James APRN Unavailable [phone] Faustino Topete MD Unavailable [phone] Reason for Visit * Reason Onset Date Comments new start 11/21/2024 Encounter Details Date Type Department Care Team (Late st Contact Info) Description 11/21/2024 Telephone [facility] [address] [place] [phone] Noble Burrell, PharmD new Social History Tobacco [...] drink first t volodymyr in the morning (EYE-LEADERSHIP DEVELOPMENT CONSULTANT) to steady your nerves or to [...] documented as of this encounter Care Teams Academic Coach Relationship Specialty Start Date End Date Armani Campa MD [address] [place] [address] PCP - General 10/19/22 Kylee James APRN [address] [address] Nurse Practitioner Medical Oncology 03/30/23 Faustino Topete MD [address] [address] Consulting Physician Medical Oncology 12/01/23 documented as of this encounter
--- OUTSIDE RECORDS SUMMARY | 2024-12-15 10:59 | XMS_ITS | Data Portability ---
Author Organization [facility] RADHA Rice [place] [facility]OS[facility] Address [address] [place] [address] Care Team Providers Care Floor Inspector Name Role Phone PEPE CORTES Referring Provider Assessment Encounter Date Assessment Date Assessment LastModified by Organization Details LastModified Time 07/02/2022 07/02/2022 Symptoms consistent with bladder spasms and overactive bladder. Trial of Vesicare. Not available 07/04/2022 15:48:22 08/20/2022 08/20/2022 Medical management of overactive bladder with Vesicare. Follow up in 6 months. [email or web address] Not available 08/20/2022 14:51:37 Plan of Treatment Reminders Order Date Submit Date Provider Last Modified By Organization Details Last Modified Time Details Appointments None recorded. Lab urinalysis panel, auto 2022 023 [email or web address] 14 [facility] With [address], [place], [address], 3 08:02:57 urinalysis panel, auto 2022 023 [email or web address] 14 [facility] With [address], [place], [address], 3 09:27:49 Referral None recorded. Procedures None recorded. Surgeries None recorded. Imaging None recorded. Medication Orders solifenacin 10 mg tablet 2022 023 [email or web address] 14 [facility] 537, [address], [address], 3 09:10:31 solifenacin 10 mg tablet 2022 023 [facility] 591, 805 [address] [place], [address], 3 15:05:24 Patient TargetsNo targets recorded. Patient Instructions Encounter Date Encounter Id Patient Instructions Last Modified By Organization Details Last Modified Time 08/20/2022 [id number] learning about healthy weight [email or web address] Not available 08/21/2022 08:02:57 Reason for Referral None Reported. Results Created Date Observation Date Name Description Value Unit Range Abnormal Flag Note LastModifiedBy Organization Detail LastModifiedTime 07/02/1907/02/2022 urina lysis panel , auto Unknown Analyte Clean Catch Not Available [facility] With [address], [place], [address], 07/02/2022 14:45:06 07/02/19 23 07/02/2022 urina lysis panel , auto Unknown Analyte Yellow Not Available [facility] With [address], [place], [address], 07/02/2022 14:45:06 07/02/19 23 07/02/2022 urina lysis panel , auto Unknown Analyte Clear Not Available [facility] With [address], [place], [address], 07/02/2022 14:45:06 07/02/19 23 07/02/2022 urina lysis panel , auto Unknown Analyte 1.005 Not Available [facility] With [address] [place], [address], 07/02/2022 14:45:06 07/02/19 23 07/02/2022 urina lysis panel , auto Unknown Analyte 1.003- 1.035 Not Available [facility] With [address], [place], [address], 07/02/2022 14:45:06 07/02/19 23 07/02/2022 urina lysis panel , auto Unknown Analyte 8.0 Not Available [facility] With [address] [place], [address], 07/02/2022 14:45:06 07/02/19 23 07/02/2022 urina lysis panel , auto Unknown Analyte 5.0-8. 0 Not Available [facility] With [address] [place], [address], 07/02/2022 14:45:06 07/02/19 23 07/02/2022 urina lysis panel , auto Unknown Analyte Negati ve Not Available [facility] With [address] [place], [address], 07/02/2022 14:45:06 07/02/19 23 07/02/2022 urina lysis panel , auto Unknown Analyte Negati ve Not Available [facility] With [address] [place], [address], 07/02/2022 14:45:06 07/02/19 23 07/02/2022 urina lysis panel , auto Unknown Analyte Negati ve Not Available [facility] With [address] [place], [address], 07/02/2022 14:45:06 07/02/19 23 07/02/2022 urina lysis panel , auto Unknown Analyte Negati ve Not Available [facility] With [address] [place], [address], 07/02/2022 14:45:06 07/02/19 23 07/02/2022 urina lysis panel , auto Unknown Analyte Negati ve Not Available [facility] With [address] [place], [address], 07/02/2022 14:45:06 07/02/19 23 07/02/2022 urina lysis panel , auto Unknown Analyte Negati ve Not Available [facility] With [address] [place], [address], 07/02/2022 14:45:06 07/02/19 23 07/02/2022 urina lysis panel , auto Unknown Analyte Normal Not Available [facility] With [address] [place], [address], 07/02/2022 14:45:06 07/02/19 23 07/02/2022 urina lysis panel , auto Unknown Analyte Normal Not Available [facility] With [address] [place], [address], 07/02/2022 14:45:06 07/02/19 23 07/02/2022 urina lysis panel , auto Unknown Analyte Negati ve Not Available [facility] With [address] [place], [address], 07/02/2022 14:45:06 07/02/19 23 07/02/2022 urina lysis panel , auto Unknown Analyte Negati ve Not Available [facility] With [address] [place], [address], 07/02/2022 14:45:06 07/02/19 23 07/02/2022 urina lysis panel , auto Unknown Analyte Normal Not Available [facility] With [address], [place], [address], 07/02/2022 14:45:06 07/02/19 23 07/02/2022 urina lysis panel , auto Unknown Analyte Normal 1 mg/dl Not Available [facility] With [address] [place], [address], 07/02/2022 14:45:06 07/02/19 23 07/02/2022 urina lysis panel , auto Unknown Analyte Negati ve Not Available [facility] With [address] [place], [address], 07/02/2022 14:45:06 07/02/19 23 07/02/2022 urina lysis panel , auto Unknown Analyte Negati ve Not Available [facility] With [address] [place], [address], 07/02/2022 14:45:06 07/02/19 23 07/02/2022 urina lysis panel , auto Unknown Analyte Negati ve Not Available [facility] With [address] [place], [address], 07/02/2022 14:45:06 07/02/19 23 07/02/2022 urina lysis panel , auto Unknown Analyte Negati ve Not Available [facility] With [address] [place], [address], 07/02/2022 14:45:06 08/21/19 23 08/20/2022 urina lysis panel , auto Unknown Analyte Clean Catch Not Available [facility] With [address] [place], [address], 08/20/2022 14:41:44 08/21/19 23 08/20/2022 urina lysis panel , auto Unknown Analyte Yellow Not Available [facility] With [address], [place], [address], 08/20/2022 14:41:44 08/21/19 23 08/20/2022 urina lysis panel , auto Unknown Analyte Clear Not Available [facility] With [address] [place], [address], 08/20/2022 14:41:44 08/21/1908/20/2022 urina lysis panel , auto Unknown Analyte 1.005 Not Available [facility] With [address] [place], [address], 08/20/2022 14:41:44 08/21/19 23 08/20/2022 urina lysis panel , auto Unknown Analyte 1.003- 1.035 Not Available [facility] With [address] [place], [address], 08/20/2022 14:41:44 08/21/19 23 08/20/2022 urina lysis panel , auto Unknown Analyte 6.5 Not Available [facility] With [address] [place], [address], 08/20/2022 14:41:44 08/21/1908/20/2022 urina lysis panel , auto Unknown Analyte 5.0-8. 0 Not Available [facility] With [address] [place], [address], 08/20/2022 14:41:44 08/21/19 23 08/20/2022 urina lysis panel , auto Unknown Analyte Negati ve Not Available [facility] With [address] [place], [address], 08/20/2022 14:41:44 08/21/1908/20/2022 urina lysis panel , auto Unknown Analyte Negati ve Not Available [facility] With [address], [place], [address], 08/20/2022 14:41:44 08/21/1908/20/2022 urina lysis panel , auto Unknown Analyte Negati ve Not Available [facility] With [address], [place], [address], 08/20/2022 14:41:44 08/21/1908/20/2022 urina lysis panel , auto Unknown Analyte Negati ve Not Available [facility] With [address], [place], [address], 08/20/2022 14:41:44 08/21/1908/20/2022 urina lysis panel , auto Unknown Analyte Negati ve Not Available [facility] With [address], [place], [address], 08/20/2022 14:41:44 08/21/1908/20/2022 urina lysis panel , auto Unknown Analyte Negati ve Not Available [facility] With [address] [place], [address], 08/20/2022 14:41:44 08/21/1908/20/2022 urina lysis panel , auto Unknown Analyte Normal Not Available [facility] With [address] [place], [address], 08/20/2022 14:41:44 08/21/1908/20/2022 urina lysis panel , auto Unknown Analyte Normal Not Available [facility] With [address] [place], [address], 08/20/2022 14:41:44 08/21/1908/20/2022 urina lysis panel , auto Unknown Analyte Negati ve Not Available [facility] With [address] [place], [address], 08/20/2022 14:41:44 08/21/1908/20/2022 urina lysis panel , auto Unknown Analyte Negati ve Not Available [facility] With [address] [place], [address], 08/20/2022 14:41:44 08/21/1908/20/2022 urina lysis panel , auto Unknown Analyte Normal Not Available [facility] With [address] [place], [address], 08/20/2022 14:41:44 08/21/1908/20/2022 urina lysis panel , auto Unknown Analyte Normal 1 mg/dl Not Available [facility] With [address] [place], [address], 08/20/2022 14:41:44 08/21/1908/20/2022 urina lysis panel , auto Unknown Analyte Negati ve Not Available [facility] With [address] [place], [address], 08/20/2022 14:41:44 08/21/1908/20/2022 urina lysis panel , auto Unknown Analyte Negati ve Not Available [facility] With [address] [place], [address], 08/20/2022 14:41:44 08/21/1908/20/2022 urina lysis panel , auto Unknown Analyte Negati ve Not Available [facility] With [address], [place], [address], 08/20/2022 14:41:44 08/21/1908/20/2022 urina lysis panel , auto Unknown Analyte Negati ve Not Available [facility] With [address], [place], [address], 08/20/2022 14:41:44 Result Notes None recorded. Procedures Surgical History Date Name Laterality Status Provider Name and Address Organization Details Recorded Time Knee arthroscopy /surgery completed Beverly Mahmood [facility] 07/02/2022 14:43:48 Imaging Results None [...] Updated DateTime 07/02/2022 154.94 cm 21.4 kg/m2 06656.94 g Beverly Mahmood [facility] 07/02/2022 14:41:26 Date Recorded Body height Body mass index (BMI) Body weight Provider Name and Address Organization Details Last Updated DateTime 08/20/2022 154.94 cm 21.4 kg/m2 94104.94 g Awa Navas [facility] 08/20/2022 14:40:59 Social History Question Answer Notes LastModified by Organizat ion Details LastModified Time Tobacco Smoking Status Never Smoker Beverly Mahmood tico, [facility] 07/02/2022 14:43:28 What Was The [...] SNOMED-CT Code Diagnosis ICD10 Code Diagnosis Note [id number] QIAN ARCEO MD [facility] [address] [place] [address] ,[address] [place] [address] 07/02/2022 14:06:12 07/05/2022 04:02:59 Overactive urinary bladder 315532002 N32.81 Nocturia 266894978 R35.1 [id number] QIAN ARCEO MD [facility] [address] [place] [address],[address] [place] [address] 08/20/2022 14:40:42 08/22/2022 04:36:15 Overactive urinary bladder [id number] N32.81 Nocturia [id number] R35.1 Health Concerns Section Related Observation LastModified by Organization Detai ls LastModified Time None Recorded Concern Status LastModified by Organization Details LastModified Time None Recorded Advance Directives Directive None Recorded Payers Insurance Date Sequence Insurance Name Policy Number Policy Bowen Covered Member ID Bowen Member ID Guarantor Name 08/17/2022 1 [facility] (MEDICAID REPLACEMENT - HMO) Radha Vidales [id number] Radha Vidales Notes Date Note Type Note [...] urination, not during urination. QIAN ARCEO MD [address] [place] [address], [address], [facility] 07/04/2022 15:53:03 08/20/2022 text/html 77-year-old harleen [...] of concern to patient. QIAN ARCEO MD [address] [place] [address], [address], [facility] 08/21/2022 08:03:15 OBGyn Episode No OBEpisode recorded.
--- OUTSIDE RECORDS SUMMARY | 2024-12-15 10:59 | XMS_ITS | Encounter Summary ---
Author Organization [facility] Address [address] [place] [address] Care Team Providers Care Entry Level Sales Representative Name Role Phone Armani Campa MD Primary Care Provider [phone] Kylee James APRN Unavailable [phone] Faustino Topete MD Unavailable [phone] Encounter Details Date Type Department Care Team (Late st Contact Info) Description 11/29/2024 Refill [facility] [address] [place] [address] Marlin Guevara, PharmD [address] [address] Social History Tobacco Use Types Packs/Day Years [...] t volodymyr in the morning (EYE-DIRECTOR OF COMMUNITY SERVICES) to steady your nerves or to get [...] documented as of this encounter Care Teams Entry Level Sales Representative Relationship Specialty Start Date End Date Armani Campa MD [address] [place] [address] PCP - General 10/19/22 Kylee James APRN [address] [address] Nurse Practitioner Medical Oncology 03/30/23 Faustino Topete MD [address] [address] Consulting Physician Medical Oncology 12/01/23 documented as of this encounter
--- OUTSIDE RECORDS SUMMARY | 2024-12-15 10:59 | XMS_ITS ---
Author Organization [facility] Address [address] [place] [address] Care Team Providers Care Rail Switch Operator Name Role Phone Armani Campa MD Primary Care Provider [phone] Kylee James APRN Unavailable [phone] Faustino Topete MD Unavailable [phone] Active Problems Problem Noted Date Diagnosed Date [...] knee 12/25/2021 Current Treatment and Therapy Plans No current plan information found. Past Treatment and Therapy Plans Infusion Treatment 1 Plan Name Start Date Discontinue Date Treatment Medications Discontinue Reason Plan Provider (Hem/Onc) Lanreotide (Somatuline) 06/11/2023 12/14/2024 No medications scheduled. Therapy Complete Faustino Topete MD Resolved Problems Problem Noted Date Diagnosed Date Resolved Date Small bowel obstruction 11/19/2023 06/2 12/2023
--- OUTSIDE RECORDS SUMMARY | 2024-12-15 10:59 | XMS_ITS | Encounter Summary ---
Author Organization [facility] Address [address] [place] [address] Care Team Providers Care Adult School Counselor Name Role Phone Armani Campa MD Primary Care Provider [phone] Kylee James COMMUNICATION ENGINEER Unavailable [phone] Faustino Topete MD Unavailable [phone] Reason for Visit * Reason Onset Date Comments Med Refill 11/21/2024 Encounter Details Date Type Department Care Team (Late st Contact Info) Description 11/21/2024 Refill [facility] [address] [place] [address] Faustino Topete MD [address] [address] Malignant neuroendocrine neoplasm (CMS/HCC) Social [...] drink first t volodymyr in the morning (EYE-COURT INTERPRETER) to steady your nerves or to get [...] as of this encounter Care Teams Adult School Counselor Relationship Specialty Start Date End Date Armani Campa MD [address] [place] [address] PCP - General 10/19/22 Kylee James APRN [address]ung [address] [address] Nurse Practitioner Medical Oncology 03/30/23 Faustino Topete MD [address] [address] Consulting Physician Medical Oncology 12/01/23 documented as of this encounter
--- OUTSIDE RECORDS SUMMARY | 2024-12-15 10:59 | XMS_ITS | Encounter Summary ---
Author Organization [facility] Address [address] [place] [address] Care Team Providers Care Fire Prevention Officer Name Role Phone Armani Campa MD Primary Care Provider + Reason for Visit * Reason Comments Med Refill Encounter Details Date Type Department Care Team (Late st Contact Info) Description 04/01/2023 Refill [facility] [address] [place] [address] Armani Campa MD [address] [place] [address] Primary osteoarthritis of right knee Social History Tobacco Use Types Packs/Day Years Used Date Smoking Tobacco: Never Smokeless Tobacco: Never Alcohol Use Standard Drinks/Week Comments Never 0 (1 standard drink = 0.6 oz pur e alcohol) PHQ-2 Answer Date Recorded Retired PHQ-9: Brief Depression Severity Measure Score 0 07/02/2022 PHQ-2 Answer Date Recorded Retired PHQ-9: Brief Depression Severity Measure Score 0 07/02/2022 Comments Unknown Sex and Gender Information Value Date Recorded Sex Assigned at Female 08/14/2024 7:23 AM EDT Legal Sex Female 10:26 AM EDT Gender Identity Not on file Sexual Orientation Straight 08/14/2024 7: 23 AM EDT documented as of this encounter Miscellaneous Notes * Telephone Encounter - Rosa Chopra MA - 04/01/2023 6:40 PM EDT Not sure with looking through her recent encounters if she should be on Meloxicam daily. documented in this encounter Plan of Treatment Upcoming Encounters Date Type Department Care Team (Late st Contact Info) Description 02/15/2025 3:15 PM EDT Office Visit [facility] [address] [place] [address] Armani Campa MD [address] [place] [address] documented as of this encounter Visit Diagnoses Diagnosis Primary osteoarthritis of right knee documented in this encounter Care Teams Fire Prevention Officer Relationship Specialty Start Date End Date Armani Campa MD [address] [place] [address] PCP - General Family Medicine 12/25/21 documented as of this encounter
[2024-12-15 11:13] VITALS: BP 114/79; PULSE 76; RESP 18; O2SAT 98
[2024-12-15] MEDS: 0.9 % SODIUM CHLORIDE 1000ML 1,000 ML 999 ML IV (11:13)
[2024-12-15 12:20] VITALS: BP 136/71; PULSE 79; RESP 18; O2SAT 98
== END 2024-12-15 12:20 | disposition home or self-care (01) ==
LOC: INF 10:57
PROVIDERS: PCP Family Medicine; Visit Provider Internal Medicine Hematology & Oncology
DX: C7A.019 Malignant carcinoid tumor of the small intestine, unspecified portion (principal)
CPT/HCPCS: 96360; J7030

== ENCOUNTER 2024-12-22 10:55 | Outpatient (CLI) | payer MEDICARE, SELFPAY ==
--- OUTSIDE RECORDS SUMMARY | 2024-12-22 10:57 | XMS_ITS ---
Author Name Auto Generated, Auto Generated Organization [facility] Address [address] [address] Phone [phone] Care Team Providers Care Booth Cleaner Name Role Phone Altagraciajane López Unavailable [phone] Lucinda Schumacher Unavailable Armani Campa Unavailable [phone] Functional Status No Results Mental Status [...] Measurement Date Systolic blood pressure 140 mm[Hg] WedApr 05 08:00:00 EST 2023 Diastolic blood pressure 90 mm[Hg] WedApr 05 08:00:00 EST 2023 Respiratory rate 16 /min WedApr 05 08:0 0:00 EST 2023 Heart rate 67 /min WedApr 05 08:00 :00 EST 2023 Systolic blood pressure 120 mm[Hg] WedAug 30 07:15:00 EDT 2024 Diastolic blood pressure 70 mm[Hg] WedAug 30 07:15:00 EDT 2024 Respiratory rate 14 /min WedAug 30 07:1 5:00 EDT 2024 Heart rate 82 /min WedAug 30 07:15 :00 EDT 2024 Body weight 113 [lb_av] [...] 14 09:15:00 EDT 2023 Systolic blood pressure 138 mm[Hg] WedJan 24 08:10:00 EDT 2023 Diastolic blood pressure 78 mm[Hg] WedJan 24 08:10:00 EDT 2023 Respiratory rate 20 /min WedJan 24 08:1 0:00 EDT 2023 Heart rate 80 /min WedJan 24 08:10 :00 EDT 2023 Systolic blood pressure 140 mm[Hg] WedFeb 07 07:02:00 EDT 2023 Diastolic blood pressure 80 mm[Hg] WedFeb 07 07:02:00 EDT 2023 Respiratory rate 18 /min WedFeb 07 07:0 2:00 EDT 2023 Heart rate 72 /min WedFeb 07 07:02 :00 EDT 2023 Systolic blood pressure 120 mm[Hg] WedApr 17 06:30:00 EST 2023 Diastolic blood pressure 78 mm[Hg] WedApr 17 06:30:00 EST 2023 Respiratory rate 16 /min WedApr 17 06:3 0:00 EST 2023 Heart rate 70 /min WedApr 17 06:30 :00 EST 2023 Systolic blood pressure 128 mm[Hg] WedJun 23 06:40:00 EST 2024 Diastolic blood pressure 80 mm[Hg] WedJun 23 06:40:00 EST 2024 Respiratory rate 16 /min WedJun 23 06:4 0:00 EST 2024 Heart rate 98 /min WedJun 23 06:40 :00 EST 2024 Body weight 114 [lb_av] WedJul 12 09:45 :00 EST 2024 Systolic blood pressure 150 mm[Hg] WedJul 12 09:45:00 EST 2024 Diastolic blood pressure 80 mm[Hg] WedJul 12 09:45:00 EST 2024 Respiratory rate 20 /min WedJul 12 09:4 5:00 EST 2024 Heart rate 80 /min WedJul 12 09:45 :00 EST 2024 Systolic blood pressure 126 mm[Hg] WedApr 25 06:45:00 EST 2023 Diastolic blood pressure 74 mm[Hg] WedApr 25 06:45:00 EST 2023 Respiratory rate 16 /min WedApr 25 06:4 5:00 EST 2023 Oxygen saturation in Arteria l blood by Pulse oximetry 97 % WedApr 25 06:45:00 EST 2023 Heart rate 88 /min WedApr 25 06:45 :00 EST 2023 Systolic blood pressure 130 mm[Hg] WedMay 29 05:35:00 EST 2023 Diastolic blood pressure 64 mm[Hg] WedMay 29 05:35:00 EST 2023 Respiratory rate 20 /min WedMay 29 05:3 5:00 EST 2023 Heart rate 72 /min WedMay 29 05:35 :00 EST 2023 Body weight 113.4 [lb_av] WedJun 09 08:00 :00 EST 2024 Systolic blood pressure 150 mm[Hg] WedJun 09 08:00:00 EST 2024 Diastolic blood pressure 90 mm[Hg] WedJun 09 08:00:00 EST 2024 Respiratory rate 20 /min WedJun 09 08:0 0:00 EST 2024 Heart rate 80 /min WedJun 09 08:00 :00 EST 2024 Systolic blood pressure 130 mm[Hg] WedJul 21 06:04:00 EST 2024 Diastolic blood pressure 80 mm[Hg] WedJul 21 06:04:00 EST 2024 Respiratory rate 16 /min WedJul 21 06:0 4:00 EST 2024 Heart rate 76 /min WedJul 21 06:04 :00 EST 2024 Body weight 113 [lb_av] WedAug 07 08:00 :00 EDT 2024 Systolic blood pressure 140 mm[Hg] WedAug 07 08:00:00 EDT 2024 Diastolic blood pressure 90 mm[Hg] WedAug 07 08:00:00 EDT 2024 Respiratory rate 20 /min WedAug 07 08:0 0:00 EDT 2024 Heart rate 96 /min WedAug 07 08:00 :00 EDT 2024 Systolic blood pressure 130 mm[Hg] WedMar 28 09:30:00 EDT 2023 Diastolic blood pressure 80 mm[Hg] WedMar 28 09:30:00 EDT 2023 Respiratory rate 16 /min WedMar 28 09:3 0:00 EDT 2023 Systolic blood pressure 108 mm[Hg] WedDec 29 05:30:00 EDT 2023 Diastolic blood pressure 64 mm[Hg] WedDec 29 05:30:00 EDT 2023 Respiratory rate 18 /min WedDec 29 05:3 0:00 EDT 2023 Heart rate 80 /min WedDec 29 05:30 :00 EDT 2023 Systolic blood pressure 162 mm[Hg] WedFeb 01 06:50:00 EDT 2023 Diastolic blood pressure 76 mm[Hg] WedFeb 01 06:50:00 EDT 2023 Respiratory rate 20 /min WedFeb 01 06:5 0:00 EDT 2023 Heart rate 80 /min WedFeb 01 06:50 :00 EDT 2023 Systolic blood pressure 120 mm[Hg] WedApr 11 08:36:00 EST 2023 Diastolic blood pressure 80 mm[Hg] WedApr 11 08:36:00 EST 2023 Respiratory rate 16 /min WedApr 11 08:3 6:00 EST 2023 Heart rate 70 /min WedApr 11 08:36 :00 EST 2023 Body weight 113.4 [lb_av] Ailyn Aug 17 11:30 :00 EDT 2024 Systolic blood pressure 132 mm[Hg] Ailyn Aug 17 11:30:00 EDT 2024 Diastolic blood pressure 84 mm[Hg] Ailyn Aug 17 11:30:00 EDT 2024 Respiratory rate 20 /min Ailyn Aug 17 11:3 0:00 EDT 2024 Heart rate 88 /min Ailyn Aug 17 11:30 :00 EDT 2024 Systolic blood pressure 160 mm[Hg] WedJun 14 08:30:00 EST 2024 Diastolic blood pressure 90 mm[Hg] WedJun 14 08:30:00 EST 2024 Respiratory rate 20 /min WedJun 14 08:3 0:00 EST 2024 Heart rate 76 /min WedJun 14 08:30 :00 EST 2024 Body weight 112 [lb_av] WedMay 12 07:00 :00 EST 2023 Systolic blood pressure 160 mm[Hg] WedMay 12 07:00:00 EST 2023 Diastolic blood pressure 84 mm[Hg] WedMay 12 07:00:00 EST 2023 Respiratory rate 20 /min WedMay 12 07:0 0:00 EST 2023 Heart rate 76 /min WedMay 12 07:00 :00 EST 2023 Systolic blood pressure 130 [...] /min WedMar 01 09:05 :00 EDT 2023 Respiratory rate 18 /min WedDec 27 05:3 5:00 EDT 2023 Systolic blood pressure 130 mm[Hg] WedMar 06 09:20:00 EDT 2023 Diastolic blood pressure 90 mm[Hg] WedMar 06 09:20:00 EDT 2023 Respiratory rate 16 /min WedMar 06 09:2 0:00 EDT 2023 Heart rate 70 /min WedMar 06 09:20 :00 EDT 2023 Systolic blood pressure 126 mm[Hg] WedAug 22 09:15:00 EDT 2024 Diastolic blood pressure 80 mm[Hg] WedAug 22 09:15:00 EDT 2024 Respiratory rate 18 /min WedAug 22 09:1 5:00 EDT 2024 Heart rate 76 /min WedAug 22 09:15 :00 EDT 2024 Systolic blood pressure 140 mm[Hg] WedMay 17 08:30:00 EST 2023 Diastolic blood pressure 76 mm[Hg] WedMay 17 08:30:00 EST 2023 Respiratory rate 16 /min WedMay 17 08:3 0:00 EST 2023 Heart rate 78 /min WedMay 17 08:30 :00 EST 2023 Systolic blood pressure 130 mm[Hg] WedMar 22 07:06:00 EDT 2023 Diastolic blood pressure 80 mm[Hg] WedMar 22 07:06:00 EDT 2023 Heart rate 92 /min WedMar 22 07:06 :00 EDT 2023 Systolic blood pressure 118 mm[Hg] WedJan 04 09:00:00 EDT 2023 Diastolic blood pressure 80 mm[Hg] WedJan 04 09:00:00 EDT 2023 Respiratory rate 20 /min WedJan 04 09:0 0:00 EDT 2023 Heart rate 70 /min WedJan 04 09:00 :00 EDT 2023 Systolic blood pressure 118 mm[Hg] WedJan 17 06:35:00 EDT 2023 Diastolic blood pressure 70 mm[Hg] WedJan 17 06:35:00 EDT 2023 Respiratory rate 20 /min WedJan 17 06:3 5:00 EDT 2023 Heart rate 56 /min WedJan 17 06:35 :00 EDT 2023 Systolic blood pressure 140 mm[Hg] WedSep 06 10:24:00 EDT 2024 Diastolic blood pressure 80 mm[Hg] WedSep 06 10:24:00 EDT 2024 Respiratory rate 20 /min WedSep 06 10:2 4:00 EDT 2024 Heart rate 84 /min WedSep 06 10:24 :00 EDT 2024 Systolic blood pressure 110 mm[Hg] WedMay 01 09:36:00 EST 2023 Diastolic blood pressure 68 mm[Hg] WedMay 01 09:36:00 EST 2023 Respiratory rate 16 /min WedMay 01 09:3 6:00 EST 2023 Heart rate 97 /min WedMay 01 09:36 :00 EST 2023 Body weight 113 [lb_av] WedSep 27 11:50 :00 EDT 2024 Systolic blood pressure 112 mm[Hg] WedSep 27 11:50:00 EDT 2024 Diastolic blood pressure 60 mm[Hg] WedSep 27 11:50:00 EDT 2024 Respiratory rate 20 /min WedSep 27 11:5 0:00 EDT 2024 Heart rate 84 /min WedSep 27 11:50 :00 EDT 2024 Systolic blood pressure 180 mm[Hg] Ailyn Sep 12 09:30:00 EDT 2023 Diastolic blood pressure 90 mm[Hg] Ailyn Sep 12 09:30:00 EDT 2023 Respiratory rate 18 /min Ailyn Sep 12 09:3 0:00 EDT 2023 Systolic blood pressure 138 mm[Hg] Ailyn Aug 17 10:16:00 EDT 2024 Diastolic blood pressure 70 mm[Hg] Ailyn Aug 17 10:16:00 EDT 2024 Respiratory rate 20 /min Ailyn Aug 17 10:1 6:00 EDT 2024 Heart rate 80 /min Ailyn Aug 17 10:16 :00 EDT 2024 Systolic blood pressure 136 mm[Hg] Wed Jul 26 07:30:00 EST 2024 Diastolic blood pressure 80 mm[Hg] Wed b 07:30:00 EST 2024 Respiratory rate 20 /min Wed Jul 26 07:3 0:00 EST 2024 Heart rate 88 /min Wed b 07:30 :00 EST 2024 Systolic blood pressure 148 mm[Hg] Wed Sep 07:15:00 EDT 2023 Diastolic blood pressure 88 mm[Hg] Wed Sep 18 07:15:00 EDT 2023 Respiratory rate 16 /min Wed 18 07:1 5:00 EDT 2023 Systolic blood pressure 140 mm[Hg] WedFeb 24 05:26:00 EDT 2023 Diastolic blood pressure 80 mm[Hg] WedFeb 24 05:26:00 EDT 2023 Respiratory rate 16 /min WedFeb 24 05:2 6:00 EDT 2023 Heart rate 78 /min WedFeb 24 05:26 :00 EDT 2023 Systolic blood pressure 136 mm[Hg] WedJan 10 07:10:00 EDT 2023 Diastolic blood pressure 70 mm[Hg] WedJan 10 07:10:00 EDT 2023 Respiratory rate 20 /min WedJan 10 07:1 0:00 EDT 2023 Heart rate 80 /min WedJan 10 07:10 :00 EDT 2023 Systolic blood pressure 132 mm[Hg] WedJun 30 11:00:00 EST 2024 Diastolic blood pressure 76 mm[Hg] WedJun 30 11:00:00 EST 2024 Respiratory rate 20 /min WedJun 30 11:0 0:00 EST 2024 Heart rate 76 /min WedJun 30 11:00 :00 EST 2024 Reason for Referral
--- OUTSIDE RECORDS SUMMARY | 2024-12-22 10:57 | XMS_ITS ---
Author Name Auto Generated, Auto Generated Organization [facility] Address [address] [place] [address] Phone [phone] Care Team Providers Care Motorcycle Delivery Driver Name Role Phone Altagraciajane López Unavailable [phone] Lucinda Schumacher Unavailable Armani Campa Unavailable Functional [...] Measurement Date Systolic blood pressure 140 mm[Hg] WedSep 06 10:24:00 EDT 2024 Diastolic blood pressure 80 mm[Hg] WedSep 06 10:24:00 EDT 2024 Respiratory rate 20 /min WedSep 06 10:2 4:00 EDT 2024 Heart rate 84 /min WedSep 06 10:24 :00 EDT 2024 Systolic blood pressure 130 mm[Hg] WedMar 28 09:30:00 EDT 2023 Diastolic blood pressure 80 mm[Hg] WedMar 28 09:30:00 EDT 2023 Respiratory rate 16 /min WedMar 28 09:3 0:00 EDT 2023 Systolic blood pressure 138 mm[Hg] Ailyn Sep 14 10:16:00 EDT 2024 Diastolic blood pressure 70 mm[Hg] Ailyn Sep 14 10:16:00 EDT 2024 Respiratory rate 20 /min Ailyn Sep 14 10:1 6:00 EDT 2024 Heart rate 80 /min Ailyn Sep 14 10:16 :00 EDT 2024 Systolic blood pressure 110 mm[Hg] WedMay 01 09:36:00 EST 2023 Diastolic blood pressure 68 mm[Hg] WedMay 01 09:36:00 EST 2023 Respiratory rate 16 /min WedMay 01 09:3 6:00 EST 2023 Heart rate 97 /min WedMay 01 09:36 :00 EST 2023 Systolic blood pressure 160 mm[Hg] WedJun 14 08:30:00 EST 2024 Diastolic blood pressure 90 mm[Hg] WedJun 14 08:30:00 EST 2024 Respiratory rate 20 /min WedJun 14 08:3 0:00 EST 2024 Heart rate 76 /min WedJun 14 08:30 :00 EST 2024 Systolic blood pressure 180 mm[Hg] Ailyn Sep 09:30:00 EDT 202 Diastolic blood pressure 90 mm[Hg] Ailyn Sep 09:30:00 EDT 2024 Respiratory rate 18 /min [facility] Feb 09 09:3 0:00 EDT 2023 Systolic blood pressure 140 mm[Hg] WedApr 05 08:00:00 EST 2023 Diastolic blood pressure 90 mm[Hg] WedApr 05 08:00:00 EST 2023 Respiratory rate 16 /min WedApr 05 08:0 0:00 EST 2023 Heart rate 67 /min WedApr 05 08:00 :00 EST 2023 Body weight 113 [lb_av] WedAug 07 08:00 :00 EDT 2024 Systolic blood pressure 140 mm[Hg] WedAug 07 08:00:00 EDT 2024 Diastolic blood pressure 90 mm[Hg] WedAug 07 08:00:00 EDT 2024 Respiratory rate 20 /min WedAug 07 08:0 0:00 EDT 2024 Heart rate 96 /min WedAug 07 08:00 :00 EDT 2024 Body weight 113.4 [lb_av] WedJun 09 08:00 :00 EST 2024 Systolic blood pressure 150 mm[Hg] WedJun 09 08:00:00 EST 2024 Diastolic blood pressure 90 mm[Hg] WedJun 09 08:00:00 EST 2024 Respiratory rate 20 /min WedJun 09 08:0 0:00 EST 2024 Heart rate 80 /min WedJun 09 08:00 :00 EST 2024 Systolic blood pressure 128 mm[Hg] WedJun 23 06:40:00 EST 2024 Diastolic blood pressure 80 mm[Hg] WedJun 23 06:40:00 EST 2024 Respiratory rate 16 /min WedJun 23 06:4 0:00 EST 2024 Heart rate 98 /min WedJun 23 06:40 :00 EST 2024 Systolic blood pressure 130 mm[Hg] WedMar 22 07:06:00 EDT 2023 Diastolic blood pressure 80 mm[Hg] WedMar 22 07:06:00 EDT 2023 Heart rate 92 /min WedMar 22 07:06 :00 EDT 2023 Systolic blood pressure 132 mm[Hg] WedJun 30 11:00:00 EST 2024 Diastolic blood pressure 76 mm[Hg] WedJun 30 11:00:00 EST 2024 Respiratory rate 20 /min WedJun 30 11:0 0:00 EST 2024 Heart rate 76 /min WedJun 30 11:00 :00 EST 2024 Systolic blood pressure 130 mm[Hg] WedOctober 04 08:15:00 EDT 2024 Diastolic blood pressure 70 mm[Hg] WedOctober 04 08:15:00 EDT 2024 Respiratory rate 20 /min WedOctober 04 08:1 5:00 EDT 2024 Heart rate 80 /min WedOctober 04 08:15 :00 EDT 2024 Systolic blood pressure 140 mm[Hg] e Sep 10 07:02:00 EDT 2023 Diastolic blood pressure 80 mm[Hg] e Sep 07:02:00 EDT 2023 Respiratory rate 18 /min e Sep 10 07:0 2:00 EDT 2023 Heart rate 72 /min Sep 10 07:02 :00 EDT 2023 Systolic blood pressure 120 mm[Hg] WedApr 17 06:30:00 EST 2023 Diastolic blood pressure 78 mm[Hg] WedApr 17 06:30:00 EST 2023 Respiratory rate 16 /min WedApr 17 06:3 0:00 EST 2023 Heart rate 70 /min WedApr 17 06:30 :00 EST 2023 Systolic blood pressure 148 mm[Hg] WedFeb 15 07:15:00 EDT 2023 Diastolic blood pressure 88 mm[Hg] WedFeb 15 07:15:00 EDT 2023 Respiratory rate 16 /min WedFeb 15 07:1 5:00 EDT 2023 Body weight 113 [lb_av] WedSep 27 11:50 :00 EDT 2024 Systolic blood pressure 112 mm[Hg] WedSep 27 11:50:00 EDT 2024 Diastolic blood pressure 60 mm[Hg] WedSep 27 11:50:00 EDT 2024 Respiratory rate 20 /min WedSep 27 11:5 0:00 EDT 2024 Heart rate 84 /min WedSep 27 11:50 :00 EDT 2024 Systolic blood pressure 118 mm[Hg] WedJan 04 09:00:00 EDT 2023 Diastolic blood pressure 80 mm[Hg] WedJan 04 09:00:00 EDT 2023 Respiratory rate 20 /min WedJan 04 09:0 0:00 EDT 2023 Heart rate 70 /min WedJan 04 09:00 :00 EDT 2023 Systolic blood pressure 136 mm[Hg] WedJan 10 07:10:00 EDT 2023 Diastolic blood pressure 70 mm[Hg] WedJan 10 07:10:00 EDT 2023 Respiratory rate 20 /min WedJan 10 07:1 0:00 EDT 2023 Heart rate 80 /min WedJan 10 07:10 :00 EDT 2023 Systolic blood pressure 118 mm[Hg] WedJan 17 06:35:00 EDT 2023 Diastolic blood pressure 70 mm[Hg] WedJan 17 06:35:00 EDT 2023 Respiratory rate 20 /min WedJan 17 06:3 5:00 EDT 2023 Heart rate 56 /min WedJan 17 06:35 :00 EDT 2023 Systolic blood pressure 140 mm[Hg] WedMay 17 08:30:00 EST 2023 Diastolic blood pressure 76 mm[Hg] WedMay 17 08:30:00 EST 2023 Respiratory rate 16 /min WedMay 17 08:3 0:00 EST 2023 Heart rate 78 /min WedMay 17 08:30 :00 EST 2023 Respiratory rate 18 /min [...] 06:45 :00 EST 2023 Systolic blood pressure 136 mm[Hg] WedJul 26 07:30:00 EST 2024 Diastolic blood pressure 80 mm[Hg] WedJul 26 07:30:00 EST 2024 Respiratory rate 20 /min WedJul 26 07:3 0:00 EST 2024 Heart rate 88 /min WedJul 26 07:30 :00 EST 2025 Systolic blood pressure 140 mm[Hg] WedMar 14 09:15:00 EDT 2023 Diastolic blood pressure 90 mm[Hg] WedMar 14 09:15:00 EDT 2023 Systolic blood pressure 162 mm[Hg] Wed Feb 01 06:50:00 EDT 2023 Diastolic blood pressure 76 mm[Hg] Wed Jan 04 06:50:00 EDT 2023 Respiratory rate 20 /min Wed Jan 04 06:5 0:00 EDT 2023 Heart rate 80 /min Wed Jan 04 06:50 :00 EDT 2023 Systolic blood pressure 130 mm[Hg] WedMar 01 09:05:00 EDT 2023 Diastolic blood pressure 80 mm[Hg] WedMar 01 09:05:00 EDT 2023 Respiratory rate 16 /min WedMar 01 09:0 5:00 EDT 2023 Heart rate 70 /min WedMar 01 09:05 :00 EDT 2023 Body weight 114 [lb_av] Wed Feb 12 09:45 :00 EST 2024 Systolic blood pressure 150 mm[Hg] Wed Feb 09:45:00 EST 2024 Diastolic blood pressure 80 mm[Hg] Wed Feb 09:45:00 EST 2024 Respiratory rate 20 /min Wed Feb 09:4 5:00 EST 2024 Heart rate 80 /min Wed Feb 09:45 :00 EST 2024 Systolic blood pressure 130 [...] 09:15 :00 EDT 2024 Systolic blood pressure 120 mm[Hg] WedApr 11 08:36:00 EST 2023 Diastolic blood pressure 80 mm[Hg] WedApr 11 08:36:00 EST 2023 Respiratory rate 16 /min WedApr 11 08:3 6:00 EST 2023 Heart rate 70 /min WedApr 11 08:36 :00 EST 2023 Body weight 113.4 [lb_av] WedAug 17 11:30 :00 EDT 2024 Systolic blood pressure 132 mm[Hg] WedAug 17 11:30:00 EDT 2024 Diastolic blood pressure 84 mm[Hg] WedAug 17 11:30:00 EDT 2024 Respiratory rate 20 /min WedAug 17 11:3 0:00 EDT 2024 Heart rate 88 /min WedAug 17 11:30 :00 EDT 2024 Systolic blood pressure 138 mm[Hg] WedJan 24 08:10:00 EDT 2023 Diastolic blood pressure 78 mm[Hg] WedJan 24 08:10:00 EDT 2023 Respiratory rate 20 /min WedJan 24 08:1 0:00 EDT 2023 Heart rate 80 /min WedJan 24 08:10 :00 EDT 2023 Body weight 112 [lb_av] WedMay 12 07:00 :00 EST 2023 Systolic blood pressure 160 mm[Hg] WedMay 12 07:00:00 EST 2023 Diastolic blood pressure 84 mm[Hg] WedMay 12 07:00:00 EST 2023 Respiratory rate 20 /min WedMay 12 07:0 0:00 EST 2023 Heart rate 76 /min WedMay 12 07:00 :00 EST 2023 Body weight 113 [lb_av] WedAug 02 07:11 :00 EST 2024 Systolic blood pressure 128 mm[Hg] WedAug 02 07:11:00 EST 2024 Diastolic blood pressure 76 mm[Hg] WedAug 02 07:11:00 EST 2024 Respiratory rate 18 /min WedAug 02 07:1 1:00 EST 2024 Heart rate 70 /min WedAug 02 07:11 :00 EST 2024 Systolic blood pressure 108 [...] 05:35 :00 EST 2023 Systolic blood pressure 120 mm[Hg] WedAug 30 07:15:00 EDT 2024 Diastolic blood pressure 70 mm[Hg] WedAug 30 07:15:00 EDT 2024 Respiratory rate 14 /min WedAug 30 07:1 5:00 EDT 2024 Heart rate 82 /min WedAug 30 07:15 :00 EDT 2024 Systolic blood pressure 130 mm[Hg] WedJul 21 06:04:00 EST 2024 Diastolic blood pressure 80 mm[Hg] WedJul 21 06:04:00 EST 2024 Respiratory rate 16 /min WedJul 21 06:0 4:00 EST 2024 Heart rate 76 /min WedJul 21 06:04 :00 EST 2024 Reason for Referral
--- OUTSIDE RECORDS SUMMARY | 2024-12-22 10:58 | XMS_ITS | Encounter Summary ---
Author Organization [facility] Address [address] [place] [address] Care Team Providers Care Software Release Manager Name Role Phone Armani Campa MD Primary Care Provider + Reason for Visit * Reason Onset Date Comments MEDICATION ISSUE 11/07/2024 Encounter Details Date Type Department Care Team (Late st Contact Info) Description 11/07/2024 Telephone [facility] [address] [place] [address] Armani Campa MD [address] [place] [address] MEDICATION ISSUE Social History Tobacco [...] Davis Relationship: Self Best call back number: [phone] What was the call regarding: PHARMACY IS [...] 3:15 PM EDT Office Visit [facility] [address] [facility] [place] [place] [phone] Armani Campa MD [address] [place] [address] documented as of this encounter Visit Diagnoses Diagnosis Hypokalemia Hypopotassemia documented in this encounter Additional Health Concerns Assessment Noted Time PHQ-2 Depression Total Score: 1 02/15/20 24 10:24 AM EDT documented as of this encounter Care Teams Software Release Manager Relationship Specialty Start Date End Date Armani Campa MD [address] [place] [address] PCP - General Family Medicine 12/25/21 documented as of this encounter
--- OUTSIDE RECORDS SUMMARY | 2024-12-22 10:58 | XMS_ITS | Encounter Summary ---
Author Organization [facility] Address [address] [place] [address] Care Team Providers Care Carbon Sequestration Plant Manager Name Role Phone Armani Cortes MD Primary Care Provider + Reason for Visit * Reason Onset Date Comments Med Management 11/06/2024 Encounter Details Date Type Department Care Team (Late st Contact Info) Description 11/06/2024 Telephone [facility] [address] [place] [address] Armani Cortes MD [address] [place] [address] Med Management Social History Tobacco [...] - 11/06/2024 1:04 PM EDT Pharmacy Name: [facility] Pharmacy community engagement representative phone number: [phone] What medication are you calling in regards [...] Description 02/15/2025 3:15 PM EDT Office Visit [facility] [address] [place] [phone] Armani Cortes MD [address] [place] [address] documented as of this encounter Visit Diagnoses 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
--- OUTSIDE RECORDS SUMMARY | 2024-12-22 10:58 | XMS_ITS | Encounter Summary ---
Author Organization [facility] Address [address] [place] [address] Care Team Providers Care Radio Television Announcer Name Role Phone Armani Campa MD Primary Care Provider + Reason for Visit * Reason Onset Date Comments Med Refill 11/06/2024 Encounter Details Date Type Department Care Team (Late st Contact Info) Description 11/06/2024 Refill [facility] [address] [place] [address] Armani Campa MD [address] [place] [address] Neuroendocrine carcinoma metastatic to small [...] Susan Relationship: Self Best call back number: [phone] Requested Prescriptions: Requested Prescriptions Pending Prescriptions Disp Refills Lomotil 2.5-0.025 MG per tablet Sig: Take 2 tablets by mouth 4 (Four) Times a Day As Needed for Diarrhea. Pharmacy where request should be sent: [id number] [place] [facility] [address] [phone] 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
--- OUTSIDE RECORDS SUMMARY | 2024-12-22 10:59 | XMS_ITS | Clinical Summary ---
Author Organization [facility] Address [address] [place] [address] Care Team Providers Care Home Maker Name Role Phone Armani Campa MD [...] fracture 12/25/2021 Overactive bladder 12/25/2021 Hypokalemia 12/25/2021 alf (current) use of n on-steroidal anti-inflammatories (nsaid) 12/25/2021 Encounters Date Type Department Care Team Description 11/07/2024 Telephone [facility] [address] [place] [address] Armani Campa MD MEDICATION ISSUE 11/06/2024 Telephone [facility] [address] [place] [address] Armani Campa MD Med Management 11/06/2024 Refill [facility] [address] [place] [address] Armani Campa MD 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 Telephone [facility] [address] [place], [place] [address] Armani Campa MD New Med Request 10/11/2024 Results Follow-Up [facility] MED[facility] [address] [place], [place] [address] Armani Campa MD 10/10/2024 11:00 AM EDT Office Visit [facility] [address] [place], [place] [address] Armani Campa MD Neuroendocrine carcinoma [...] Description 02/15/2025 3:15 PM EDT Office Visit [facility] 210 [facility] [place] [address] Armani Campa MD [address] [place] [address] Health Maintenance Due Date Last Done [...] 11:1 8 AM EDT 10/10/2024 Narrative [facility] (AMBULATORY) - 10/11/2024 4:07 AM EDT Performed at: - [address] [id number] Press Loader: Huang Medina PhD, Phone: [phone] Patient Fasting: N Armani Campa MD LAB BLOOD ORDERABLES Fin al Result [facility] (AMBULATORY) [address] [id number], [facility] [address] [place] [address], [place] [phone] * SCANNED - DEXA (01/28/2022) Anatomical Region Laterality Modality Other Armani Campa MD CHART REVIEW TABS Fin al Result from Last 3 Months or Most Recently Relevant to Health Maintenance Insurance [employer] Advance Directives Documents on File Type Date Recorded Patient Film Coater Expl anation LIVING WILL - SCAN 01/28/2022 11:[address] [facility] [facility] [place]/2021 Care Teams Home Maker Relationship Specialty Start Date End Date Armani Campa MD [address] [facility] [place] [address] PCP - General Family Medicine 12/25/21
--- OUTSIDE RECORDS SUMMARY | 2024-12-22 10:59 | XMS_ITS | Encounter Summary ---
Author Organization [facility] Address [address] [place] [address] Care Team Providers Care Screwmaker Automatic Name Role Phone Armani Campa MD Primary Care Provider + Encounter Details Date Type Department Care Team (Late st Contact Info) Description 08/15/2024 Results Follow-Up [facility] MED[facility]INE [address] [place] [address] Armani Campa MD [address] [place] [address] Social History Tobacco Use Types [...] Description 02/15/2025 3:15 PM EDT Office Visit [facility] [address] [place] [address] Armani Campa MD [address] [facility] [place] [address] documented as of this encounter Visit Diagnoses Not on filedocumented in this encounter Additional Health Concerns Assessment Noted Time PHQ-2 Depression Total Score: 1 02/15/20 24 10:24 AM EDT documented as of this encounter Care Teams Screwmaker Automatic Relationship Specialty Start Date End Date Armani Campa MD [address] [place] [address] PCP - General Family Medicine 12/25/21 documented as of this encounter
--- OUTSIDE RECORDS SUMMARY | 2024-12-22 10:59 | XMS_ITS | Encounter Summary ---
Author Organization [facility] Address [address] [place] [address] Care Team Providers Care Industrial Mechanic Name Role Phone Armani Campa MD Primary Care Provider + Encounter Details Date Type Department Care Team (Late st Contact Info) Description 10/11/2024 Results Follow-Up [facility] MED[facility]INE [address] [place] [address] Armani Campa MD [address] [place] [address] Social History Tobacco Use Types [...] Description 02/15/2025 3:15 PM EDT Office Visit [facility] MEDICINE [address] [place] [address] Armani Campa MD 210 [facility] [place] [address] documented as of this encounter Visit Diagnoses Not on filedocumented in this encounter Additional Health Concerns Assessment Noted Time PHQ-2 Depression Total Score: 1 02/15/20 24 10:24 AM EDT documented as of this encounter Care Teams Industrial Mechanic Relationship Specialty Start Date End Date Armani Campa MD [address] [place] [address] PCP - General Family Medicine 12/25/21 documented as of this encounter
--- OUTSIDE RECORDS SUMMARY | 2024-12-22 10:59 | XMS_ITS | Encounter Summary ---
Author Organization [facility] Address [address] [place] [address] Care Team Providers Care Snow Plow Operator Name Role Phone Armain Campa MD Primary Care Provider + Reason for Visit * Reason Comments Med Refill Encounter Details Date Type Department Care Team (Late st Contact Info) Description 04/01/2023 Refill [facility] 210 [place] [address] Armani Campa MD 210 [place] [address] Primary osteoarthritis of right knee [...] Description 02/15/2025 3:15 PM EDT Office Visit [facility] [address] [place] [address] Armani Campa MD [address] [place] [address] documented as of this encounter Visit Diagnoses Diagnosis Primary osteoarthritis of right knee documented in this encounter Care Teams Snow Plow Operator Relationship Specialty Start Date End Date Armani Campa MD [address] [place] [address] PCP - General Family Medicine 12/25/21 documented as of this encounter
--- OUTSIDE RECORDS SUMMARY | 2024-12-22 10:59 | XMS_ITS | Encounter Summary ---
Author Organization [facility] Address [address] [place] [address] Care Team Providers Care Lunchroom Mother Name Role Phone Armani Campa MD Primary Care Provider + Reason for Visit * Reason Onset Date Comments New Med Request 11/02/2024 Encounter Details Date Type Department Care Team (Late st Contact Info) Description 11/02/2024 Telephone [facility] 210 [place] [address] Armani Campa MD 210 [place] [address] New Med Request Social History [...] FlashRadha Relationship: Self Best call back number: [phone] What medication are you requesting: POTASSIUM Have you had these symptoms before: [x] Yes [] No Have you been treated for these symptoms before: [x] Yes [] No If a prescription is needed, what is your preferred pharmacy and phone number: [facility]- [place], [place] - [address] [phone] [facility] [phone] FX Additional notes: documented in this encounter Plan of Treatment Upcoming Encounters Date Type Department Care Team (Late st Contact Info) Description 02/15/2025 3:15 PM EDT Office Visit [facility] [address] [place] [phone] Armani Campa MD [address] [place] [address] documented as of this encounter Visit Diagnoses Diagnosis Hypokalemia- Primary Hypopotassemia documented in this encounter Additional Health Concerns Assessment Noted Time PHQ-2 Depression Total Score: 1 02/15/20 24 10:24 AM EDT documented as of this encounter Care Teams Lunchroom Mother Relationship Specialty Start Date End Date Armani Campa MD [address] [place] [address] PCP - General Family Medicine 12/25/21 documented as of this encounter
--- OUTSIDE RECORDS SUMMARY | 2024-12-22 10:59 | XMS_ITS | Data Portability ---
Author Organization [facility] Address [address] [facility] [address] [place] [address] Care Team Providers Care Asbestos Cloth Inspector Name Role Phone PEPE CORTES Referring Provider Assessment Encounter Date Assessment Date Assessment LastModified by Organization Details LastModified Time 07/02/2022 07/02/2022 Symptoms consistent with bladder spasms and overactive bladder. Trial of Vesicare. [email or web address] Not available 07/04/2022 15:48:22 08/20/2022 08/20/2022 Medical management of overactive bladder with Vesicare. Follow up in 6 months. [email or web address] Not available 08/20/2022 14:51:37 Plan of Treatment Reminders Order Date Submit Date Provider Last Modified By Organization Details Last Modified Time Details Appointments None recorded. Lab urinalysis panel, auto 2022 023 [email or web address] 14 [facility] Extended Services With [address], [place], [address], 3 08:02:57 urinalysis panel, auto 2022 023 [email or web address] 14 [facility] Extended Services With [address], [place], [address], 3 09:27:49 Referral None recorded. Procedures None recorded. Surgeries None recorded. Imaging None recorded. Medication Orders solifenacin 10 mg tablet 2022 023 [email or web address] 14 [facility], [address], [address], 3 09:10:31 solifenacin 10 mg tablet 2022 023 [facility], [address] [place], [address], 3 15:05:24 Patient TargetsNo targets recorded. Patient Instructions Encounter Date Encounter Id Patient Instructions Last Modified By Organization Details Last Modified Time 08/20/2022 [id number] learning about healthy weight [email or web address] Not available 08/21/2022 08:02:57 Reason for Referral None Reported. Results Created Date Observation Date Name Description Value Unit Range Abnormal Flag Note LastModifiedBy Organization Detail LastModifiedTime 07/02/1907/02/2022 urina lysis panel , auto Unknown Analyte Clean Catch Not Available [facility] Extended Services With [address], [place], [address], 07/02/2022 14:45:06 07/02/19 23 07/02/2022 urina lysis panel , auto Unknown Analyte Yellow Not Available [facility] Extended Services With [address], [place], [address], 07/02/2022 14:45:06 07/02/19 23 07/02/2022 urina lysis panel , auto Unknown Analyte Clear Not Available [facility] Extended Services With [address], [place], [address], 07/02/2022 14:45:06 07/02/19 23 07/02/2022 urina lysis panel , auto Unknown Analyte 1.005 Not Available [facility] Extended Services With [address] [place], [address], 07/02/2022 14:45:06 07/02/19 23 07/02/2022 urina lysis panel , auto Unknown Analyte 1.003- 1.035 Not Available [facility] Extended Services With [address], [place], [address], 07/02/2022 14:45:06 07/02/19 23 07/02/2022 urina lysis panel , auto Unknown Analyte 8.0 Not Available [facility] Extended Services With [address] [place], [address], 07/02/2022 14:45:06 07/02/19 23 07/02/2022 urina lysis panel , auto Unknown Analyte 5.0-8. 0 Not Available [facility] Extended Services With [address] [place], [address], 07/02/2022 14:45:06 07/02/19 23 07/02/2022 urina lysis panel , auto Unknown Analyte Negati ve Not Available [facility] Extended Services With [address] [place], [address], 07/02/2022 14:45:06 07/02/19 23 07/02/2022 urina lysis panel , auto Unknown Analyte Negati ve Not Available [facility] Extended Services With [address] [place], [address], 07/02/2022 14:45:06 07/02/19 23 07/02/2022 urina lysis panel , auto Unknown Analyte Negati ve Not Available [facility] Extended Services With [address] [place], [address], 07/02/2022 14:45:06 07/02/19 23 07/02/2022 urina lysis panel , auto Unknown Analyte Negati ve Not Available [facility] Extended Services With [address] [place], [address], 07/02/2022 14:45:06 07/02/19 23 07/02/2022 urina lysis panel , auto Unknown Analyte Negati ve Not Available [facility] Extended Services With [address] [place], [address], 07/02/2022 14:45:06 07/02/19 23 07/02/2022 urina lysis panel , auto Unknown Analyte Negati ve Not Available [facility] Extended Services With [address] [place], [address], 07/02/2022 14:45:06 07/02/19 23 07/02/2022 urina lysis panel , auto Unknown Analyte Normal Not Available [facility] Extended Services With [address] [place], [address], 07/02/2022 14:45:06 07/02/19 23 07/02/2022 urina lysis panel , auto Unknown Analyte Normal Not Available [facility] Extended Services With [address] [place], [address], 07/02/2022 14:45:06 07/02/19 23 07/02/2022 urina lysis panel , auto Unknown Analyte Negati ve Not Available [facility] Extended Services With [address] [place], [address], 07/02/2022 14:45:06 07/02/19 23 07/02/2022 urina lysis panel , auto Unknown Analyte Negati ve Not Available [facility] Extended Services With [address] [place], [address], 07/02/2022 14:45:06 07/02/19 23 07/02/2022 urina lysis panel , auto Unknown Analyte Normal Not Available [facility] Extended Services With [address], [place], [address], 07/02/2022 14:45:06 07/02/19 23 07/02/2022 urina lysis panel , auto Unknown Analyte Normal 1 mg/dl Not Available [facility] Extended Services With [address] [place], [address], 07/02/2022 14:45:06 07/02/19 23 07/02/2022 urina lysis panel , auto Unknown Analyte Negati ve Not Available [facility] Extended Services With [address] [place], [address], 07/02/2022 14:45:06 07/02/19 23 07/02/2022 urina lysis panel , auto Unknown Analyte Negati ve Not Available [facility] Extended Services With [address] [place], [address], 07/02/2022 14:45:06 07/02/19 23 07/02/2022 urina lysis panel , auto Unknown Analyte Negati ve Not Available [facility] Extended Services With [address] [place], [address], 07/02/2022 14:45:06 07/02/19 23 07/02/2022 urina lysis panel , auto Unknown Analyte Negati ve Not Available [facility] Extended Services With [address] [place], [address], 07/02/2022 14:45:06 08/21/19 23 08/20/2022 urina lysis panel , auto Unknown Analyte Clean Catch Not Available [facility] Extended Services With [address] [place], [address], 08/20/2022 14:41:44 08/21/19 23 08/20/2022 urina lysis panel , auto Unknown Analyte Yellow Not Available [facility] Extended Services With [address], [place], [address], 08/20/2022 14:41:44 08/21/19 23 08/20/2022 urina lysis panel , auto Unknown Analyte Clear Not Available [facility] Extended Services With [address] [place], [address], 08/20/2022 14:41:44 08/21/1908/20/2022 urina lysis panel , auto Unknown Analyte 1.005 Not Available [facility] Extended Services With [address] [place], [address], 08/20/2022 14:41:44 08/21/19 23 08/20/2022 urina lysis panel , auto Unknown Analyte 1.003- 1.035 Not Available [facility] Extended Services With [address] [place], [address], 08/20/2022 14:41:44 08/21/19 23 08/20/2022 urina lysis panel , auto Unknown Analyte 6.5 Not Available [facility] Extended Services With [address] [place], [address], 08/20/2022 14:41:44 08/21/1908/20/2022 urina lysis panel , auto Unknown Analyte 5.0-8. 0 Not Available [facility] Extended Services With [address] [place], [address], 08/20/2022 14:41:44 08/21/19 23 08/20/2022 urina lysis panel , auto Unknown Analyte Negati ve Not Available [facility] Extended Services With [address] [place], [address], 08/20/2022 14:41:44 08/21/1908/20/2022 urina lysis panel , auto Unknown Analyte Negati ve Not Available [facility] Extended Services With [address], [place], [address], 08/20/2022 14:41:44 08/21/1908/20/2022 urina lysis panel , auto Unknown Analyte Negati ve Not Available [facility] Extended Services With [address], [place], [address], 08/20/2022 14:41:44 08/21/1908/20/2022 urina lysis panel , auto Unknown Analyte Negati ve Not Available [facility] Extended Services With [address], [place], [address], 08/20/2022 14:41:44 08/21/1908/20/2022 urina lysis panel , auto Unknown Analyte Negati ve Not Available [facility] Extended Services With [address], [place], [address], 08/20/2022 14:41:44 08/21/1908/20/2022 urina lysis panel , auto Unknown Analyte Negati ve Not Available [facility] Extended Services With [address] [place], [address], 08/20/2022 14:41:44 08/21/1908/20/2022 urina lysis panel , auto Unknown Analyte Normal Not Available [facility] Extended Services With [address] [place], [address], 08/20/2022 14:41:44 08/21/1908/20/2022 urina lysis panel , auto Unknown Analyte Normal Not Available [facility] Extended Services With [address] [place], [address], 08/20/2022 14:41:44 08/21/1908/20/2022 urina lysis panel , auto Unknown Analyte Negati ve Not Available [facility] Extended Services With [address] [place], [address], 08/20/2022 14:41:44 08/21/1908/20/2022 urina lysis panel , auto Unknown Analyte Negati ve Not Available [facility] Extended Services With [address] [place], [address], 08/20/2022 14:41:44 08/21/1908/20/2022 urina lysis panel , auto Unknown Analyte Normal Not Available [facility] Extended Services With [address] [place], [address], 08/20/2022 14:41:44 08/21/1908/20/2022 urina lysis panel , auto Unknown Analyte Normal 1 mg/dl Not Available [facility] Extended Services With [address] [place], [address], 08/20/2022 14:41:44 08/21/1908/20/2022 urina lysis panel , auto Unknown Analyte Negati ve Not Available [facility] Extended Services With [address] [place], [address], 08/20/2022 14:41:44 08/21/1908/20/2022 urina lysis panel , auto Unknown Analyte Negati ve Not Available [facility] Extended Services With [address] [place], [address], 08/20/2022 14:41:44 08/21/1908/20/2022 urina lysis panel , auto Unknown Analyte Negati ve Not Available [facility] Extended Services With [address], [place], [address], 08/20/2022 14:41:44 08/21/1908/20/2022 urina lysis panel , auto Unknown Analyte Negati ve Not Available [facility] Extended Services With [address], [place], [address], 08/20/2022 14:41:44 Result Notes None recorded. Procedures Surgical History Date Name Laterality Status Provider Name and Address Organization Details Recorded Time Knee arthroscopy /surgery completed Beverly Mahmood [facility] 07/02/2022 14:43:48 Imaging Results None recorded. Procedure [...] Updated DateTime 07/02/2022 154.94 cm 21.4 kg/m2 30585.94 g Beverly Mahmood [facility] 07/02/2022 14:41:26 Date Recorded Body height Body mass index (BMI) Body weight Provider Name and Address Organization Details Last Updated DateTime 08/20/2022 154.94 cm 21.4 kg/m2 85402.94 g Awa Navas [facility] 08/20/2022 14:40:59 Social History Question Answer Notes LastModified by Organizat ion Details LastModified Time Tobacco Smoking Status Never Smoker Beverly Mahmood tico, [facility] 07/02/2022 14:43:28 What Was The Date Of [...] SNOMED-CT Code Diagnosis ICD10 Code Diagnosis Note [id number] QIAN ARCEO MD [facility] [address] [place] [address] ,[place] [address] 07/02/2022 14:06:12 07/05/2022 04:02:59 Overactive urinary bladder 216987128 N32.81 Nocturia 921657551 R35.1 [id number] QIAN ARCEO MD [facility] [address] [place] [address],[place] [address] 08/20/2022 14:40:42 08/22/2022 04:36:15 Overactive urinary bladder [id number] N32.81 Nocturia [id number] R35.1 Health Concerns Section Related Observation LastModified by Organization Detai ls LastModified Time None Recorded Concern Status LastModified by Organization Details LastModified Time None Recorded Advance Directives Directive None Recorded Payers Insurance Date Sequence Insurance Name Policy Number Policy Bowen Covered Member ID Bowen Member ID Guarantor Name 08/17/2022 1 [facility] (MEDICAID REPLACEMENT - HMO) Radha Vidales [id number] Radha Vidales Notes Date Note Type Note Provider Name and Address Organization Details Recorded Time 07/02/2022 text/html 76-year-old female in the office for my initial evaluation for discussion of irritative voiding symptoms. She voids hourly with nocturia 2 or 3 times nightly. She previously had symptoms of hesitancy, now improved. She does have urgency. No gross hematuria or dysuria. She complains of lower extremity edema. She complains of discomfort following urination, not during urination. QIAN ARCEO MD [address] [place] [address], [address], [facility] 07/04/2022 15:53:03 08/20/2022 text/html 77-year-old female in the office for evaluation for discussion of irritative voiding symptoms and overactive bladder. She has noticed improvement with solifenacin. She previously had symptoms of urgency, now improved. No hesitancy. Daytime frequency every 4 hours. Nocturia 3-4 times per night. No gross hematuria or dysuria. Her force of stream is slower but not of concern to patient. QIAN ARCEO MD [address] [place] [address], [address], [facility] 08/21/2022 08:03:15 OBGyn Episode No OBEpisode recorded.
[2024-12-22 11:00] VITALS: BP 121/57; PULSE 78; RESP 18; TEMP 36.9; O2SAT 98
[2024-12-22] MEDS: 0.9 % SODIUM CHLORIDE 1000ML 1,000 ML 999 ML IV (11:00)
[2024-12-22] MEDS: SODIUM CHLORIDE 0.9% 10ML FLUSH SYRINGE 10 ML IV (11:28)
[2024-12-22 12:10] VITALS: BP 138/68; PULSE 86; RESP 20; O2SAT 98
== END 2024-12-22 12:10 | disposition home or self-care (01) ==
LOC: INF 10:56
PROVIDERS: PCP Family Medicine; Visit Provider Internal Medicine Hematology & Oncology
DX: Z31.83 Encounter for assisted reproductive fertility procedure cycle (principal)
CPT/HCPCS: 96360; J7030

== ENCOUNTER 2024-12-29 10:53 | Outpatient (CLI) | payer MEDICARE, SELFPAY ==
--- OUTSIDE RECORDS SUMMARY | 2024-11-10 14:00 | XMS_ITS | Encounter Summary ---
Author Organization [facility] Address [address] [place] [address] Care Team Providers Care Freight Tallier Name Role Phone Armani Campa MD Primary Care Provider Kylee James QC MANAGER Unavailable [phone] Faustino Topete MD Unavailable [phone] Reason for Visit * Reason Comments Follow-up Malignant neuroendoc rine neoplasm Encounter Details Date Type Department Care Team (Late st Contact Info) Description 11/10/2024 2:00 PM EDT Office Visit 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 No 12/01/2023 CAGE ASSESSMENT Answer [...] drink first t volodymyr in the morning (EYE-INTERACTIVE ART DIRECTOR) to steady your nerves or to get rid of a hangover? 0 12/02/2023 CAGE Questionnaire Score 0 024 Utilities Answer Date Recorded In the past 12 months has th e [employer], gas, oil, or water company threatened to [...] had. Currently in hospice. 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 She has been having intermittent, non-frequent [...] file Social Connections: Unknown (03/08/2023) Received from [facility] Family and Community Support Help with [...] will contact us. I spent 30 minutes vnba-cx-[id number] with the patient and ppo-pvar-ml-face time, over half in discussionof the diagnosis and the importance of compliance with the treatment plan. Faustino Topete MD, FACP [facility] [address] , [place] [address] documented in this encounter Plan of Treatment [...] - 2.4 mg/dL 11/10/2024 4:51 PM EDT [facility] Blood Venous blood specimen / Unknown Venipuncture / Unknown 11/10/2024 4:02 PM EDT 11/10/2024 4:18 PM EDT us Faustino Topete MD LAB BLOOD ORDERABLES Final R esult [facility] [address] [place] [address] * (ABNORMAL) 5-HIAA, Plasma (11/10/2024 4:02 PM EDT) Pathologist [facility] Fasting greater than or equal to 8 hours? Yes 11/23/2024 4:20 PM EDT [facility] 5-Hydroxyindole acetic Acid (HIAA), Plasma 58(H) <=22 ng/ml 11/23/2024 4:20 PM EDT [facility]) Blood Venous blood specimen / Unknown Venipuncture / Unknown 11/10/2024 4:02 PM EDT 11/10/2024 4:12 PM EDT Narrative [facility] ([facility]) - 11/23/2024 4:20 PM EDT This GCMS assay was developed and its performance characteristics determined by [facility]. It has not been cleared or approved by the FDA and such approval or clearance is not required at this time. Values obtained with different methods, different laboratories or with kits cannot be used interchangeably with the results on this report. The results cannot be interpreted as absolute evidence of the presence or absence of malignant disease. Performed By: [facility] [address] [place] [address]<lb> us Faustino Topete MD LAB BLOOD ORDERABLES Final R esult [facility] ([facility]) [facility] [address] [place] [address] * (ABNORMAL) Chromogranin A (11/10/2024 4:02 PM EDT) CHROMOGRANIN A 1622(H) <93 ng/mL 11/14/2024 6:56 PM EDT [facility] ([facility]) Comment: Impaired renal or hepatic function or treatment with proton pump inhibitors may result in artifactual elevations of Chromogranin A. ADDITIONAL INFORMATION The testing method is a homogeneous time-resolved immunofluorescent assay manufactured by [employer] and performed on the [employer] Kryptor Compact Plus. Values obtained with different [...] examination and other findings. Test Performed by: [facility] [address] [place] [address] Hardness Inspector: David Hawkins Ph.D.; CLIA# [id number] Blood Venous blood specimen / Unknown Venipuncture / Unknown 11/10/2024 4:02 PM EDT 11/10/2024 4:19 PM EDT Faustino Topete MD LAB BLOOD ORDERABLES Final R esult Performing Organization Address [facility] Co de Phone Number [facility] ([facility]) * (ABNORMAL) Serotonin, Serum (11/10/2024 4:02 PM EDT) SEROTONIN 1449(H) 50 - 220 ng/mL 11/13/2024 6:02 AM EDT [facility] ([facility]) Serum Venous blood specimen / Unknown 11/10/2024 4:02 PM EDT 11/10/2024 4:18 PM EDT Narrative [facility] ([facility]) - 11/13/2024 6:02 AM EDT TEST INFORMATION: Serotonin, Serum This test was developed and its performance characteristics determined by [facility] It has not been cleared or approved by the US Food and Drug Administration. This test was performed in a CLIA certified laboratory and is intended for clinical purposes. Performed By: [facility] [address] [place] [id number] Human Resources Associate: Kurt Borges MD, PhD CLIA Number: [id number] Faustino Topete MD LAB BLOOD ORDERABLES Final R esult Performing Organization Address [facility] Co de Phone Number [facility] ([facility]) [address] [place] [address] * (ABNORMAL) Comprehensive metabolic panel (11/10/2024 4:02 PM EDT) Glucose, Plasma 92 74 - 99 mg/dL 11/10/2024 4:51 PM EDT [facility] BUN, Plasma 14 8 - 23 mg/dL 11/10/2024 4:51 PM EDT [facility] Creatinine, Plasma 0.57(L) 0.60 - 1.10 mg/dL 11/10/2024 4:51 PM EDT [facility] BUN/Creatinine Ratio 25 11/10/2024 4:51 PM EDT [facility] Sodium, Plasma 141 136 - 145 mmol/L 11/10/2024 4:51 PM EDT [facility] Potassium, Plasma 3.4(L) 3.6 - 4.9 mmol/L 11/10/2024 4:51 PM EDT [facility] Chloride, Plasma 106 97 - 107 mmol/L 11/10/2024 4:51 PM EDT [facility] CO2, Plasma 21(L) 22 - 29 mmol/L 11/10/2024 4:51 PM EDT [facility] Anion Gap 14 6 - 16 mmol/L 11/10/2024 4:51 PM EDT [facility] Total Calcium, Plasma 8.6(L) 8.9 - 10.2 mg/dL 11/10/2024 4:51 PM EDT [facility] Total Protein 7.4 6.3 - 7.9 g/dL 11/10/2024 4:51 PM EDT [facility] Albumin, Plasma 3.8 3.5 - 5.2 g/dL 11/10/2024 4:51 PM EDT [facility] AST, Plasma 36(H) 10 - 35 U/L 11/10/2024 4:51 PM EDT [facility] ALT, Plasma 20 10 - 35 U/L 11/10/2024 4:51 PM EDT [facility] Alkaline Phosphatase, Plasma 98 46 - 142 U/L 11/10/2024 4:51 PM EDT [facility] Total Bilirubin, Plasma 0.3 0.2 - 1.1 mg/dL 11/10/2024 4:51 PM EDT [facility] eGFRcr 91.4 mL/min/1.7 3m*2 11/10/2024 4:51 PM EDT [facility] Comment:Reported eGFRcr in m L/min/1.73m2 is based the CKD-EPI 2020 equation that does not use a race coefficient. Blood Venous blood specimen / Unknown Venipuncture / Unknown 11/10/2024 4:02 PM EDT 11/10/2024 4:18 PM EDT us Faustino Topete MD LAB BLOOD ORDERABLES Final R esult [facility] [address] [place] [address] * (ABNORMAL) CBC and differential (11/10/2024 4:02 PM EDT) WBC Count 6.30 3.70 - 10.30 10*3/uL LAB HEMATOLOGY METHOD 11/10/2024 5:55 PM EDT [facility] RBC Count 4.67 3.90 - 5.20 10*6/uL LAB HEMATOLOGY METHOD 11/10/2024 5:55 PM EDT [facility] HGB 11.7 11.2 - 15.7 g/dL LAB HEMATOLOGY METHOD 11/10/2024 5:55 PM EDT [facility] HCT 37.8 34.0 - 45.0 % LAB HEMATOLOGY METHOD 11/10/2024 5:55 PM EDT [facility] Platelet Count 138(L) 155 - 369 10*3/uL LAB HEMATOLOGY METHOD 11/10/2024 5:55 PM EDT [facility] MCV 81 79 - 98 fL LAB HEMATOLOGY METHOD 11/10/2024 5:55 PM EDT [facility] MCH 25.1(L) 26.0 - 32.0 pg LAB HEMATOLOGY METHOD 11/10/2024 5:55 PM EDT [facility] MCHC 31.0 30.7 - 35.5 g/dL LAB HEMATOLOGY METHOD 11/10/2024 5:55 PM EDT [facility] RDW 16.1(H) 11.5 - 14.5 % LAB HEMATOLOGY METHOD 11/10/2024 5:55 PM EDT [facility] MPV LAB HEMATOLOGY METHOD 11/10/2024 5:55 PM EDT [facility] Comment:Not Measured nRBC 0.0 <=0.0 per 100 WBCs LAB HEMATOLOGY METHOD 11/10/2024 5:55 PM EDT [facility] Differential Type Automated LAB HEMATOLOGY METHOD 11/10/2024 5:55 PM EDT [facility] Neutrophils % 75 % LAB HEMATOLOGY METHOD 11/10/2024 5:55 PM EDT [facility] Lymphocytes % 15 % LAB HEMATOLOGY METHOD 11/10/2024 5:55 PM EDT [facility] Monocytes % 9 % LAB HEMATOLOGY METHOD 11/10/2024 5:55 PM EDT [facility] Eosinophils % 1 % LAB HEMATOLOGY METHOD 11/10/2024 5:55 PM EDT [facility] Basophils % 0 % LAB HEMATOLOGY METHOD 11/10/2024 5:55 PM EDT [facility] Immature Granulocytes % 0 % LAB HEMATOLOGY METHOD 11/10/2024 5:55 PM EDT [facility] Neutrophils Absolute 4.69 1.60 - 6.10 10*3/uL LAB HEMATOLOGY METHOD 11/10/2024 5:55 PM EDT [facility] Lymphocytes Absolute 0.95(L) 1.20 - 3.90 10*3/uL LAB HEMATOLOGY METHOD 11/10/2024 5:55 PM EDT [facility] Monocytes Absolute 0.54 0.30 - 0.90 10*3/uL LAB HEMATOLOGY METHOD 11/10/2024 5:55 PM EDT [facility] Eosinophils Absolute 0.08 0.00 - 0.50 10*3/uL LAB HEMATOLOGY METHOD 11/10/2024 5:55 PM EDT [facility] Basophils Absolute 0.02 0.00 - 0.10 10*3/uL LAB HEMATOLOGY METHOD 11/10/2024 5:55 PM EDT [facility] Immature Granulocytes Absolute 0.02 0.00 - 0.06 10*3/uL LAB HEMATOLOGY METHOD 11/10/2024 5:55 PM EDT [facility] Blood Venous blood specimen / Unknown Venipuncture / Unknown 11/10/2024 4:02 PM EDT 11/10/2024 4:27 PM EDT [facility] - 11/10/2024 5:55 PM EDT Therapeutic decision making should be based on absolute values, rather than percentages. us Faustino Topete MD LAB BLOOD ORDERABLES Final R esult [facility] [address] [place] [address] documented in this encounter Visit Diagnoses Diagnosis [...] documented as of this encounter Care Teams Freight Tallier Relationship Specialty Start Date End Date Armani Campa MD [address] [place] [address] PCP - General 10/19/22 Kylee James APRN [address] [place] [address] [address] Nurse Practitioner Medical Oncology 03/30/23 Faustino Topete MD [address] [place] [address] [address] Consulting Physician Medical Oncology 12/01/23 documented as of this encounter
--- OUTSIDE RECORDS SUMMARY | 2024-12-05 10:30 | XMS_ITS | Encounter Summary ---
Author Organization [facility] Address [address] [place] [address] Care Team Providers Care Instructional Media Services Technician Name Role Phone Armani Campa MD Primary Care Provider [phone] Kylee James DIMETHYLANILINE SULFATOR OPERATOR Unavailable [phone] Faustino Topete MD Unavailable [phone] Reason for Visit * Reason Comments Routine Follow-up Encounter Details Date Type Department Care Team (Late st Contact Info) Description 12/05/2024 10:30 AM EDT Office Visit [facility] Multidisciplinary Oncology Clinic [address] [place] [address] Shannon Aguero, DIMETHYLANILINE SULFATOR OPERATOR 800 [facility] [address] [place] [address] Metastatic malignant neuroendocrine tumor to [...] drink first t volodymyr in the morning (EYE-TOBACCO WAREHOUSE MANAGER) to steady your nerves or to [...] prn. She continues to get IVFs at [facility] once a week. She is [...] to get IVF's once a week at [facility] in [place] - She prefers not to get scanned [...] the provider has confirmed with [facility] thatthe provider is authorized to provide services in patient's stated location? N/A Provider Location: [facility] facility Audio and video or [...] in patients with cancer. Shannon Aguero, MERCEDES, DIMETHYLANILINE SULFATOR OPERATOR, FUNERAL SERVICE APPRENTICE-C Division of Medical Oncology documented in this [...] documented as of this encounter Care Teams Instructional Media Services Technician Relationship Specialty Start Date End Date Armani Campa MD [address] [place] [address] PCP - General 10/19/22 Kylee James APRN [address] [place] Rosemarie Cheung [address] [address] Nurse Practitioner Medical Oncology 03/30/23 Faustino Topete MD [address] [facility] [address] [place] [address] Consulting Physician Medical Oncology 12/01/23 documented as of this encounter
--- OUTSIDE RECORDS SUMMARY | 2024-12-29 10:55 | XMS_ITS ---
Author Name Auto Generated, Auto Generated Organization [facility] Address [address] [place] [address] Phone [phone] Care Team Providers Care Printing Shop Supervisor Name Role Phone Altagraciajane López Unavailable [phone] Lucinda Schumacher Unavailable Armani Campa Unavailable Functional [...] Measurement Date Systolic blood pressure 120 mm[Hg] WedApr 17 06:30:00 EST 2023 Diastolic blood pressure 78 mm[Hg] WedApr 17 06:30:00 EST 2023 Respiratory rate 16 /min WedApr 17 06:3 0:00 EST 2023 Heart rate 70 /min WedApr 17 06:30 :00 EST 2023 Systolic blood pressure 180 mm[Hg] [facility] Sep 12 09:30:00 EDT 2023 Diastolic blood pressure 90 mm[Hg] [facility] Sep 09:30:00 EDT 2023 Respiratory rate 18 /min [facility] 09:3 0:00 EDT 2023 Systolic blood pressure 120 mm[Hg] WedAug 30 07:15:00 EDT 2024 Diastolic blood pressure 70 mm[Hg] WedAug 30 07:15:00 EDT 2024 Respiratory rate 14 /min WedAug 30 07:1 5:00 EDT 2024 Heart rate 82 /min WedAug 30 07:15 :00 EDT 2024 Systolic blood pressure 118 mm[Hg] WedJan 17 06:35:00 EDT 2023 Diastolic blood pressure 70 mm[Hg] WedJan 17 06:35:00 EDT 2023 Respiratory rate 20 /min WedJan 17 06:3 5:00 EDT 2023 Heart rate 56 /min WedJan 17 06:35 :00 EDT 2023 Systolic blood pressure 120 mm[Hg] WedApr 11 08:36:00 EST 2023 Diastolic blood pressure 80 mm[Hg] WedApr 11 08:36:00 EST 2023 Respiratory rate 16 /min WedApr 11 08:3 6:00 EST 2023 Heart rate 70 /min WedApr 11 08:36 :00 EST 2023 Body weight 113 [lb_av] WedAug 07 08:00 :00 EDT 2024 Systolic blood pressure 140 mm[Hg] WedAug 07 08:00:00 EDT 2024 Diastolic blood pressure 90 mm[Hg] WedAug 07 08:00:00 EDT 2024 Respiratory rate 20 /min WedAug 07 08:0 0:00 EDT 2024 Heart rate 96 /min WedAug 07 08:00 :00 EDT 2024 Systolic blood pressure 138 mm[Hg] [facility] Sep 14 10:16:00 EDT 2024 Diastolic blood pressure 70 mm[Hg] [facility] Sep 14 10:16:00 EDT 2024 Respiratory rate 20 /min [facility] Sep 14 10:1 6:00 EDT 2024 Heart rate 80 /min [facility] Sep 14 10:16 :00 EDT 2024 Body weight 113.4 [lb_av] [facility] Aug 17 11:30 :00 EDT 2024 Systolic blood pressure 132 mm[Hg] [facility] Aug 17 11:30:00 EDT 2024 Diastolic blood pressure 84 mm[Hg] [facility] Aug 17 11:30:00 EDT 2024 Respiratory rate 20 /min [facility] Aug 17 11:3 0:00 EDT 2024 Heart rate 88 /min [facility] Aug 17 11:30 :00 EDT 2024 Systolic blood pressure 140 mm[Hg] WedApr 05 08:00:00 EST 2023 Diastolic blood pressure 90 mm[Hg] WedApr 05 08:00:00 EST 2023 Respiratory rate 16 /min WedApr 05 08:0 0:00 EST 2023 Heart rate 67 /min WedApr 05 08:00 :00 EST 2023 Systolic blood pressure 140 mm[Hg] WedFeb 07 07:02:00 EDT 2023 Diastolic blood pressure 80 mm[Hg] WedFeb 07 07:02:00 EDT 2023 Respiratory rate 18 /min Tue Sep 10 07:0 2:00 EDT 2023 Heart rate 72 /min Wed 10 07:02 :00 EDT 2023 Systolic blood pressure 132 mm[Hg] WedJun 30 11:00:00 EST 2024 Diastolic blood pressure 76 mm[Hg] WedJun 30 11:00:00 EST 2024 Respiratory rate 20 /min WedJun 30 11:0 0:00 EST 2024 Heart rate 76 /min WedJun 30 11:00 :00 EST 2024 Systolic blood pressure 148 mm[Hg] WedFeb 15 07:15:00 EDT 2023 Diastolic blood pressure 88 mm[Hg] WedFeb 15 07:15:00 EDT 2023 Respiratory rate 16 /min WedFeb 15 07:1 5:00 EDT 2023 Systolic blood pressure 160 mm[Hg] WedJun 14 08:30:00 EST 2024 Diastolic blood pressure 90 mm[Hg] WedJun 14 08:30:00 EST 2024 Respiratory rate 20 /min WedJun 14 08:3 0:00 EST 2024 Heart rate 76 /min WedJun 14 08:30 :00 EST 2024 Systolic blood pressure 140 mm[Hg] WedSep 06 10:24:00 EDT 2024 Diastolic blood pressure 80 mm[Hg] WedSep 06 10:24:00 EDT 2024 Respiratory rate 20 /min WedSep 06 10:2 4:00 EDT 2024 Heart rate 84 /min WedSep 06 10:24 :00 EDT 2024 Body weight 112 [lb_av] [...] 07:11 :00 EST 2024 Systolic blood pressure 130 mm[Hg] WedMar 01 09:05:00 EDT 2023 Diastolic blood pressure 80 mm[Hg] WedMar 01 09:05:00 EDT 2023 Respiratory rate 16 /min WedMar 01 09:0 5:00 EDT 2023 Heart rate 70 /min WedMar 01 09:05 :00 EDT 2023 Body weight 114 [lb_av] Wed Feb 12 09:45 :00 EST 2024 Systolic blood pressure 150 mm[Hg] Wed Feb 12 09:45:00 EST 2024 Diastolic blood pressure 80 mm[Hg] Wed Feb 12 09:45:00 EST 2024 Respiratory rate 20 /min Wed Feb 12 09:4 5:00 EST 2024 Heart rate 80 /min Wed Feb 12 09:45 :00 EST 2024 Systolic blood pressure 136 mm[Hg] Wed Feb 26 07:30:00 EST 2024 Diastolic blood pressure 80 mm[Hg] Wed Feb 07:30:00 EST 2024 Respiratory rate 20 /min Wed Feb 07:3 0:00 EST 2024 Heart rate 88 /min Wed Feb 07:30 :00 EST 2024 Systolic blood pressure 138 mm[Hg] WedJan 24 08:10:00 EDT 2023 Diastolic blood pressure 78 mm[Hg] WedJan 24 08:10:00 EDT 2023 Respiratory rate 20 /min WedJan 24 08:1 0:00 EDT 2023 Heart rate 80 /min WedJan 24 08:10 :00 EDT 2023 Systolic blood pressure 136 [...] EDT 2024 Systolic blood pressure 130 mm[Hg] WedMay 29 05:35:00 EST 2023 Diastolic blood pressure 64 mm[Hg] WedMay 29 05:35:00 EST 2023 Respiratory rate 20 /min WedMay 29 05:3 5:00 EST 2023 Heart rate 72 /min WedMay 29 05:35 :00 EST 2023 Systolic blood pressure 128 mm[Hg] WedJun 23 06:40:00 EST 2024 Diastolic blood pressure 80 mm[Hg] WedJun 23 06:40:00 EST 2024 Respiratory rate 16 /min WedJun 23 06:4 0:00 EST 2024 Heart rate 98 /min WedJun 23 06:40 :00 EST 2024 Systolic blood pressure 140 mm[Hg] WedMay 17 08:30:00 EST 2023 Diastolic blood pressure 76 mm[Hg] WedMay 17 08:30:00 EST 2023 Respiratory rate 16 /min WedMay 17 08:3 0:00 EST 2023 Heart rate 78 /min Wed Dec 08:30 :00 EST 2023 Systolic blood pressure 162 mm[Hg] Wed Sep 04 06:50:00 EDT 2023 Diastolic blood pressure 76 mm[Hg] Wed Sep 04 06:50:00 EDT 2023 Respiratory rate 20 /min Wed Sep 04 06:5 0:00 EDT 2023 Heart rate 80 /min Wed Sep 04 06:50 :00 EDT 2023 Systolic blood [...] 07:06 :00 EDT 2023 Systolic blood pressure 108 mm[Hg] WedDec 29 05:30:00 EDT 2023 Diastolic blood pressure 64 mm[Hg] WedDec 29 05:30:00 EDT 2023 Respiratory rate 18 /min WedDec 29 05:3 0:00 EDT 2023 Heart rate 80 /min WedDec 29 05:30 :00 EDT 2023 Systolic blood pressure 126 mm[Hg] WedApr 25 06:45:00 EST 2023 Diastolic blood pressure 74 mm[Hg] WedApr 25 06:45:00 EST 2023 Respiratory rate 16 /min WedApr 25 06:4 5:00 EST 2023 Oxygen saturation in Arteria l blood by Pulse oximetry 97 % WedApr 25 06:45:00 EST 2023 Heart rate 88 /min WedApr 25 06:45 :00 EST 2023 Body weight 113.4 [lb_av] [...] 09:00 :00 EDT 2023 Systolic blood pressure 110 mm[Hg] [...] 14 09:15:00 EDT 2023 Systolic blood pressure 140 mm[Hg] WedFeb 24 05:26:00 EDT 2023 Diastolic blood pressure 80 mm[Hg] WedFeb 24 05:26:00 EDT 2023 Respiratory rate 16 /min WedFeb 24 05:2 6:00 EDT 2023 Heart rate 78 /min WedFeb 24 05:26 :00 EDT 2023 Body weight 113 [lb_av] WedSep 27 11:50 :00 EDT 2024 Systolic blood pressure 112 mm[Hg] WedSep 27 11:50:00 EDT 2024 Diastolic blood pressure 60 mm[Hg] WedSep 27 11:50:00 EDT 2024 Respiratory rate 20 /min WedSep 27 11:5 0:00 EDT 2024 Heart rate 84 /min WedSep 27 11:50 :00 EDT 2024 Systolic blood pressure 130 mm[Hg] WedOctober 04 08:15:00 EDT 2024 Diastolic blood pressure 70 mm[Hg] WedOctober 04 08:15:00 EDT 2024 Respiratory rate 20 /min WedOctober 04 08:1 5:00 EDT 2024 Heart rate 80 /min WedOctober 04 08:15 :00 EDT 2024 Reason for Referral
--- OUTSIDE RECORDS SUMMARY | 2024-12-29 10:55 | XMS_ITS ---
Author Name Auto Generated, Auto Generated Organization [facility] Address [address] [place] [address] Phone [phone] Care Team Providers Care Improvement Leader Name Role Phone Altagraciajane López Unavailable [phone] Lucinda Schumacher Unavailable Armani Campa Unavailable Functional [...] Vital Sign Measurement Date Systolic blood pressure 162 mm[Hg] Wed Jan 04 06:50:00 EDT 2023 Diastolic blood pressure 76 mm[Hg] Wed Jan 04 06:50:00 EDT 2023 Respiratory rate 20 /min Wed Jan 04 06:5 0:00 EDT 2023 Heart rate 80 /min WedFeb 01 06:50 :00 EDT 2023 Systolic blood pressure 138 mm[Hg] [facility] Sep 14 10:16:00 EDT 2024 Diastolic blood pressure 70 mm[Hg] [facility] Sep 14 10:16:00 EDT 2024 Respiratory rate 20 /min [facility] Sep 14 10:1 6:00 EDT 2024 Heart rate 80 /min [facility] Sep 14 10:16 :00 EDT 2024 Systolic blood pressure 140 mm[Hg] WedMar 14 09:15:00 EDT 2023 Diastolic blood pressure 90 mm[Hg] WedMar 14 09:15:00 EDT 2023 Systolic blood pressure 120 mm[Hg] Wed Aug 30 07:15:00 EDT 2024 Diastolic blood pressure [...] 09:20 :00 EDT 2023 Systolic blood pressure 130 [...] 08:00 :00 EST 2023 Systolic blood pressure 128 mm[Hg] WedJun 23 06:40:00 EST 2024 Diastolic blood pressure 80 mm[Hg] WedJun 23 06:40:00 EST 2024 Respiratory rate 16 /min WedJun 23 06:4 0:00 EST 2024 Heart rate 98 /min WedJun 23 06:40 :00 EST 2024 Systolic blood pressure 126 [...] EDT 2024 Systolic blood pressure 140 mm[Hg] WedFeb 24 [...] 07:02 :00 EDT 2023 Systolic blood pressure 108 mm[Hg] [facility] Dec 29 05:30:00 EDT 2023 Diastolic blood pressure 64 mm[Hg] [facility] Dec 29 05:30:00 EDT 2023 Respiratory rate 18 /min [facility] Dec 29 05:3 0:00 EDT 2023 Heart rate 80 /min [facility] Dec 29 05:30 :00 EDT 2023 Body weight 113.4 [lb_av] [...] 08:30 :00 EST 2024 Systolic blood pressure 130 [...] 07:00 :00 EST 2023 Systolic blood pressure 118 mm[Hg] WedJan 17 06:35:00 EDT 2023 Diastolic blood pressure 70 mm[Hg] WedJan 17 06:35:00 EDT 2023 Respiratory rate 20 /min WedJan 17 06:3 5:00 EDT 2023 Heart rate 56 /min WedJan 17 06:35 :00 EDT 2023 Systolic blood pressure 136 [...] 07:10 :00 EDT 2023 Systolic blood pressure 120 mm[Hg] WedApr 17 06:30:00 EST 2023 Diastolic blood pressure 78 mm[Hg] WedApr 17 06:30:00 EST 2023 Respiratory rate 16 /min WedApr 17 06:3 0:00 EST 2023 Heart rate 70 /min WedApr 17 06:30 :00 EST 2023 Body weight 113 [lb_av] WedAug 07 08:00 :00 EDT 2024 Systolic blood pressure 140 mm[Hg] WedAug 07 08:00:00 EDT 2024 Diastolic blood pressure 90 mm[Hg] WedAug 07 08:00:00 EDT 2024 Respiratory rate 20 /min WedAug 07 08:0 0:00 EDT 2024 Heart rate 96 /min WedAug 07 08:00 :00 EDT 2024 Body weight 113 [lb_av] WedSep 27 11:50 [...] EST 2024 Body weight 113 [lb_av] WedAug 02 07:11 :00 EST 2024 Systolic blood pressure 128 mm[Hg] WedAug 02 07:11:00 EST 2024 Diastolic blood pressure 76 mm[Hg] WedAug 02 07:11:00 EST 2024 Respiratory rate 18 /min WedAug 02 07:1 1:00 EST 2024 Heart rate 70 /min WedAug 02 07:11 :00 EST 2024 Systolic blood pressure 118 mm[Hg] WedJan 04 09:00:00 EDT 2023 Diastolic blood pressure 80 mm[Hg] WedJan 04 09:00:00 EDT 2023 Respiratory rate 20 /min WedJan 04 09:0 0:00 EDT 2023 Heart rate 70 /min WedJan 04 09:00 :00 EDT 2023 Body weight 114 [lb_av] WedJul 12 09:45 :00 EST 2024 Systolic blood pressure 150 mm[Hg] WedJul 12 09:45:00 EST 2024 Diastolic blood pressure 80 mm[Hg] WedJul 12 09:45:00 EST 2024 Respiratory rate 20 /min WedJul 12 09:4 5:00 EST 2024 Heart rate 80 /min WedJul 12 09:45 :00 EST 2024 Body weight 113.4 [lb_av] WedAug 17 11:30 :00 EDT 2024 Systolic blood pressure 132 mm[Hg] WedAug 17 11:30:00 EDT 2024 Diastolic blood pressure 84 mm[Hg] [facility] Aug 17 11:30:00 EDT 2024 Respiratory rate 20 /min [facility] Aug 17 11:3 0:00 EDT 2024 Heart rate 88 /min [facility] Aug 17 11:30 :00 EDT 2024 Systolic blood pressure 180 mm[Hg] [facility] Feb 09 09:30:00 EDT 2023 Diastolic blood pressure 90 mm[Hg] [facility] Feb 09 09:30:00 EDT 2023 Respiratory rate 18 /min [facility] Feb 09 09:3 0:00 EDT 2023 Systolic [...] 08:36 :00 EST 2023 Systolic blood pressure 132 [...] 09:05 :00 EDT 2023 Systolic blood pressure 110 mm[Hg] WedMay 01 09:36:00 EST 2023 Diastolic blood pressure 68 mm[Hg] WedMay 01 09:36:00 EST 2023 Respiratory rate 16 /min WedMay 01 09:3 6:00 EST 2023 Heart rate 97 /min WedMay 01 09:36 :00 EST 2023 Systolic blood pressure 126 mm[Hg] WedApr 25 06:45:00 EST 2023 Diastolic blood pressure 74 mm[Hg] WedApr 25 06:45:00 EST 2023 Respiratory rate 16 /min WedApr 25 06:4 5:00 EST 2023 Oxygen saturation in Arteria l blood by Pulse oximetry 97 % WedApr 25 06:45:00 EST 2023 Heart rate 88 /min WedApr 25 06:45 :00 EST 2023 Systolic blood pressure 148 [...] /min WedSep 06 10:24 :00 EDT 2024 Reason for Referral
--- OUTSIDE RECORDS SUMMARY | 2024-12-29 10:56 | XMS_ITS | Encounter Summary ---
Author Organization [facility] Address [address] [place] [address] Care Team Providers Care Gravity Flow Irrigator Name Role Phone Armani Campa MD Primary Care Provider [phone] Kylee James APRN Unavailable [phone] Faustino Topete MD Unavailable [phone] Encounter Details Date Type Department Care Team [...] drink first t volodymyr in the morning (EYE-HYDROCHLORIC MANUFACTURING SUPERVISOR) to steady your nerves or to [...] documented as of this encounter Care Teams Gravity Flow Irrigator Relationship Specialty Start Date End Date Armani Campa MD [address] [place], [place] [id number] PCP - General 10/19/22 Kylee James APRN [address] [address] Nurse Practitioner Medical Oncology 03/30/23 Faustino Topete MD [address] [address] Consulting Physician Medical Oncology 12/01/23 documented as of this encounter
--- OUTSIDE RECORDS SUMMARY | 2024-12-29 10:56 | XMS_ITS | Encounter Summary ---
Author Organization [facility] Address [address] [place] [address] Care Team Providers Care Tablet Making Machine Operator Name Role Phone Armani Campa MD Primary Care Provider [phone] Kylee James FLUE GAS ANALYST Unavailable [phone] Faustino Topete MD Unavailable [phone] Encounter Details Date Type Department Care Team (Late st Contact Info) Description 11/15/2024 Orders Only [facility] [address] [place] [address] Faustino Topete MD [address] [facility] [address] [place] [address] Metastatic malignant neuroendocrine tumor to [...] drink first t volodymyr in the morning (EYE-LINE LOCATOR) to steady your nerves or to get rid of a hangover? 0 12/02/2023 CAGE Questionnaire Score 0 024 Utilities Answer Date Recorded In the past 12 months has th e [employer], gas, oil, or water company threatened to [...] documented as of this encounter Care Teams Tablet Making Machine Operator Relationship Specialty Start Date End Date Armani Campa MD [address] [place] [address] PCP - General 10/19/22 Kylee James APRN [address] Cheung [facility] [address] [place] [address] Nurse Practitioner Medical Oncology 03/30/23 Faustino Topete MD [address] Cheung [facility] [address] [place] [address] Consulting Physician Medical Oncology 12/01/23 documented as of this encounter
--- OUTSIDE RECORDS SUMMARY | 2024-12-29 10:56 | XMS_ITS | Encounter Summary ---
Author Organization [facility] Address [address] [place] [address] Care Team Providers Care Expansion Joint Finisher Name Role Phone Armani Campa MD Primary Care Provider [phone] Kylee James APRN Unavailable [phone] Faustino Topete MD Unavailable [phone] Encounter Details Date Type Department Care Team (Late st Contact Info) Description 11/29/2024 Refill [facility] [address] [place] [address] Marlin Guevara, PharmD [address] [id number] Social History Tobacco Use Types Packs/Day Years [...] drink first t volodymyr in the morning (EYE-PHARMACY SCHEDULER) to steady your nerves or to get [...] documented as of this encounter Care Teams Expansion Joint Finisher Relationship Specialty Start Date End Date Armani Campa MD [address] [place] [address] PCP - General 10/19/22 Kylee James APRN [address] [address] Nurse Practitioner Medical Oncology 03/30/23 Faustino Topete MD [address] [address] Consulting Physician Medical Oncology 12/01/23 documented as of this encounter
--- OUTSIDE RECORDS SUMMARY | 2024-12-29 10:56 | XMS_ITS | Encounter Summary ---
Author Organization [facility] Address [address] [place] [address] Care Team Providers Care Ordnance Artificer Name Role Phone Armani Campa MD Primary Care Provider + Reason for Visit * Reason Onset Date Comments New Med Request 11/02/2024 Encounter Details Date Type Department Care Team (Late st Contact Info) Description 11/02/2024 Telephone [facility] [address] [place] [address] Armani Campa MD [address] [place] [address] New Med Request Social History [...] FlashRadha Relationship: Self Best call back number: [phone] What medication are you requesting: POTASSIUM Have you had these symptoms before: [x] Yes [] No Have you been treated for these symptoms before: [x] Yes [] No If a prescription is needed, what is your preferred pharmacy and phone number: [facility] [place], [place] - [address] [phone] [facility] [phone] FX Additional notes: documented in this encounter Plan of Treatment Upcoming Encounters Date Type Department Care Team (Late st Contact Info) Description 02/15/2025 3:15 PM EDT Office Visit [facility] [address] [place] [phone] Armani Campa MD [address] [place] [address] documented as of this encounter Visit Diagnoses Diagnosis Hypokalemia- Primary Hypopotassemia documented in this encounter Additional Health Concerns Assessment Noted Time PHQ-2 Depression Total Score: 1 02/15/20 24 10:24 AM EDT documented as of this encounter Care Teams Ordnance Artificer Relationship Specialty Start Date End Date Armani Campa MD [address] [place] [address] PCP - General Family Medicine 12/25/21 documented as of this encounter
--- OUTSIDE RECORDS SUMMARY | 2024-12-29 10:56 | XMS_ITS | Encounter Summary ---
Author Organization [facility] Address [address] [place] [address] Care Team Providers Care Metal Dresser Name Role Phone Armani Campa MD Primary Care Provider + Encounter Details Date Type Department Care Team (Late st Contact Info) Description 10/11/2024 Results Follow-Up [facility] [address] [place] [address] Armani Campa MD [address] [place] [address] Social History Tobacco Use Types [...] Description 02/15/2025 3:15 PM EDT Office Visit [facility] [address] [place] [address] Armani Campa MD [address] [facility] [place] [address] documented as of this encounter Visit Diagnoses Not on filedocumented in this encounter Additional Health Concerns Assessment Noted Time PHQ-2 Depression Total Score: 1 02/15/20 24 10:24 AM EDT documented as of this encounter Care Teams Metal Dresser Relationship Specialty Start Date End Date Armani Campa MD [address] [place] [address] PCP - General Family Medicine 12/25/21 documented as of this encounter
--- OUTSIDE RECORDS SUMMARY | 2024-12-29 10:56 | XMS_ITS | Encounter Summary ---
Author Organization [facility] Address [address] [place] [address] Care Team Providers Care Iron Caster Name Role Phone Armani Campa MD Primary Care Provider + Reason for Visit * Reason Onset Date Comments MEDICATION ISSUE 11/07/2024 Encounter Details Date Type Department Care Team (Late st Contact Info) Description 11/07/2024 Telephone [facility] [address] [place] [address] Armani Campa MD [address] [place] [address] MEDICATION ISSUE Social History Tobacco [...] Davis Relationship: Self Best call back number: [phone] What was the call regarding: PHARMACY IS [...] Visit [facility] [address] [facility] [place] [phone] Armani Campa MD [address] [place] [address] documented as of this encounter Visit Diagnoses Diagnosis Hypokalemia Hypopotassemia documented in this encounter Additional Health Concerns Assessment Noted Time PHQ-2 Depression Total Score: 1 02/15/20 24 10:24 AM EDT documented as of this encounter Care Teams Iron Caster Relationship Specialty Start Date End Date Armani Campa MD [address] [place] [address] PCP - General Family Medicine 12/25/21 documented as of this encounter
--- OUTSIDE RECORDS SUMMARY | 2024-12-29 10:56 | XMS_ITS | Encounter Summary ---
Author Organization [facility] Address [address] [place] [address] Care Team Providers Care Disposal Worker Name Role Phone Armani Cortes MD Primary Care Provider + Reason for Visit * Reason Onset Date Comments Med Management 11/06/2024 Encounter Details Date Type Department Care Team (Late st Contact Info) Description 11/06/2024 Telephone [facility] [address] [place] [address] Armani Cortes MD [address] [place] [address] Med Management Social History Tobacco [...] - 11/06/2024 1:04 PM EDT Pharmacy Name: [facility] Pharmacy personnel representative phone number: [phone] What medication are you calling in regards [...] Description 02/15/2025 3:15 PM EDT Office Visit [facility] [address] [place] [phone] Armani Cortes MD [address] [place] [address] documented as of this encounter Visit Diagnoses Diagnosis 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
--- OUTSIDE RECORDS SUMMARY | 2024-12-29 10:56 | XMS_ITS | Encounter Summary ---
Author Organization [facility] Address [address] [place] [address] Care Team Providers Care Foot Caster Name Role Phone Armani Campa MD Primary Care Provider [phone] Kylee James APRN Unavailable [phone] Faustino Topete MD Unavailable [phone] Encounter Details Date Type Department Care Team [...] drink first t volodymyr in the morning (EYE-COMPRESSED GAS EQUIPMENT MECHANIC) to steady your nerves or to get [...] documented as of this encounter Care Teams Foot Caster Relationship Specialty Start Date End Date Armani Campa MD [address] [place], [place] [id number] PCP - General 10/19/22 Kylee James APRN [address] [address] Nurse Practitioner Medical Oncology 03/30/23 Faustino Topete MD [address] [address] Consulting Physician Medical Oncology 12/01/23 documented as of this encounter
--- OUTSIDE RECORDS SUMMARY | 2024-12-29 10:56 | XMS_ITS | Clinical Summary ---
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) use of n on-steroidal anti-inflammatories (nsaid) 12/25/2021 Encounters Date Type Department Care Team Description 11/07/2024 Telephone [facility] [address] [place] [address] Armani Campa MD MEDICATION ISSUE 11/06/2024 Telephone [facility] [address] [place] [address] Armani Campa MD Med Management 11/06/2024 Refill [facility] [address] [place] [address] Armani Campa MD 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 [address] [place] [place] [address] Armani Campa MD 10/10/2024 11:00 AM EDT Office Visit [facility] [address] [place] [place] [address] [...] 3:15 PM EDT Office Visit [facility] [address] [facility] [place] [address] Armani Campa MD [address] [place] [address] Health Maintenance Due Date Last [...] 11:1 8 AM EDT 10/10/2024 Narrative [facility] (AMBULATORY) - 10/11/2024 4:07 AM EDT Performed at: - [address] [id number] Funeral Director/Embalmer/Owner: Huang Medina PhD, Phone: [phone] Patient Fasting: N Armani Campa MD LAB BLOOD ORDERABLES Fin al Result [email or web address] (AMBULATORY) [address] [id number], [facility] [address] [place] [address], [place] [phone] * SCANNED - DEXA (01/28/2022) Anatomical Region Laterality Modality Other Armani Campa MD CHART REVIEW TABS Fin al Result from Last 3 Months or Most Recently Relevant to Health Maintenance Insurance [employer] Advance Directives Documents on File Type Date Recorded Patient Drop Count Associate Expl anation LIVING WILL - SCAN 01/28/2022 11:09 AM [facility] WILL HEALTH CARE SURROGATE, [facility], 05/20/2021 Care Teams Contracts Director Relationship Specialty Start Date End Date Armani Campa MD [address] [facility] [place] [address] PCP - General Family Medicine 12/25/21
--- OUTSIDE RECORDS SUMMARY | 2024-12-29 10:56 | XMS_ITS | Encounter Summary ---
Author Organization [facility] Address [address] [place] [address] Care Team Providers Care Pin Ticket Machine Operator Name Role Phone Armani Campa MD Primary Care Provider [phone] Kylee James FILM REPLACEMENT ORDERER Unavailable [phone] Faustino Topete MD Unavailable [phone] Reason for Visit * Reason Onset Date Comments Med Refill 11/21/2024 Encounter Details Date Type Department Care Team (Late st Contact Info) Description 11/21/2024 Refill [facility] [address] [place] [address] Faustino Topete MD [address] [address] Malignant neuroendocrine neoplasm (CMS/HCC) Social [...] drink first t volodymyr in the morning (EYE-ENGINEERING LEADER) to steady your nerves or to get [...] documented as of this encounter Care Teams Pin Ticket Machine Operator Relationship Specialty Start Date End Date Armani Campa MD [address] [place] [address] PCP - General 10/19/22 Kylee James APRN [address] [address] Nurse Practitioner Medical Oncology 03/30/23 Faustino Topete MD [address] [address] Consulting Physician Medical Oncology 12/01/23 documented as of this encounter
--- OUTSIDE RECORDS SUMMARY | 2024-12-29 10:56 | XMS_ITS | Encounter Summary ---
Author Organization [facility] Address [address] [place] [address] Care Team Providers Care Reel Blade Bender Furnace Tender Name Role Phone Armani Campa MD Primary Care Provider + Encounter Details Date Type Department Care Team (Late st Contact Info) Description 08/15/2024 Results Follow-Up [facility] MED[facility] [address] [place] [address] Armani Campa MD [address] [place] [address] Social History Tobacco Use Types [...] Description 02/15/2025 3:15 PM EDT Office Visit [facility] [address] [place] [address] Armani Campa MD 210 [facility] [place] [address] documented as of this encounter Visit Diagnoses Not on filedocumented in this encounter Additional Health Concerns Assessment Noted Time PHQ-2 Depression Total Score: 1 02/15/20 24 10:24 AM EDT documented as of this encounter Care Teams Reel Blade Bender Furnace Tender Relationship Specialty Start Date End Date Armani Campa MD [address] [place] [address] PCP - General Family Medicine 12/25/21 documented as of this encounter
--- OUTSIDE RECORDS SUMMARY | 2024-12-29 10:56 | XMS_ITS | Encounter Summary ---
Author Organization [facility] Address [address] [place] [address] Care Team Providers Care Biomass Power Plant Superintendent Name Role Phone Armani Campa MD Primary Care Provider + Reason for Visit * Reason Onset Date Comments Med Refill 11/06/2024 Encounter Details Date Type Department Care Team (Late st Contact Info) Description 11/06/2024 Refill [facility] [address] [place] [address] Armani Campa MD [address] [place] [address] Neuroendocrine carcinoma metastatic to small [...] Rep - 11/06/2024 10:52 AM EDT Caller: aRdha Vidales Susan Relationship: Self Best call back number: [phone] Requested Prescriptions: Requested Prescriptions Pending Prescriptions Disp Refills Lomotil 2.5-0.025 MG per tablet Sig: Take 2 tablets by mouth 4 (Four) Times a Day As Needed for Diarrhea. Pharmacy where request should be sent: [facility] [place] [facility] [address] [phone] [facility] [phone] Last office visit with prescribing clinician: 10/10/2024 [...] Description 02/15/2025 3:15 PM EDT Office Visit [facility] [address] [facility] [place] [phone] Armani Campa MD [address] [place] [address] documented as of this encounter Visit Diagnoses Diagnosis 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
--- OUTSIDE RECORDS SUMMARY | 2024-12-29 10:56 | XMS_ITS | Encounter Summary ---
Author Organization [facility] Address [address] [place] [address] Care Team Providers Care Electric Frying Pan Repairer Name Role Phone Armani Campa MD Primary Care Provider + Reason for Visit * Reason Comments Med Refill Encounter Details Date Type Department Care Team (Late st Contact Info) Description 04/01/2023 Refill [facility] [address] [place] [address] Armani Campa MD [address] [place] [address] Primary osteoarthritis of right knee [...] 3:15 PM EDT Office Visit [facility] [address] [place] [phone] Armani Campa MD [address] [place] [address] documented as of this encounter Visit Diagnoses Diagnosis Primary osteoarthritis of right knee documented in this encounter Care Teams Electric Frying Pan Repairer Relationship Specialty Start Date End Date Armani Campa MD [address] [place] [address] PCP - General Family Medicine 12/25/21 documented as of this encounter
--- OUTSIDE RECORDS SUMMARY | 2024-12-29 10:56 | XMS_ITS ---
Author Organization [facility] Address [address] [place] [address] Care Team Providers Care Hospital Internship Name Role Phone Armani Campa MD Primary Care Provider Kylee James APRN Unavailable [phone] Faustino Topete MD Unavailable [phone] Active Problems Problem Noted Date Diagnosed Date [...]
--- OUTSIDE RECORDS SUMMARY | 2024-12-29 10:56 | XMS_ITS | Encounter Summary ---
Author Organization [facility] Address [address] [place] [address] Care Team Providers Care Stationary Engineer Apprentice Name Role Phone Armani Campa MD Primary Care Provider [phone] Kylee James APRN Unavailable [phone] Faustino Topete MD Unavailable [phone] Encounter Details Date Type Department Care Team [...] drink first t volodymyr in the morning (EYE-BORING MACHINE OPERATOR HORIZONTAL) to steady your nerves or to get rid of a hangover? 0 12/02/2023 CAGE Questionnaire Score 0 024 Utilities Answer Date Recorded In the past 12 months has th e [employer], gas, oil, or water [employer] threatened to shut off services in your [...] documented as of this encounter Care Teams Stationary Engineer Apprentice Relationship Specialty Start Date End Date Armani Campa MD [address] [place] [address] PCP - General 10/19/22 Kylee James APRN [address] [address] Nurse Practitioner Medical Oncology 03/30/23 Faustino Topete MD [address] [address] Consulting Physician Medical Oncology 12/01/23 documented as of this encounter
[2024-12-29 11:05] VITALS: BP 155/75; PULSE 67; RESP 16; O2SAT 97
[2024-12-29] MEDS: 0.9 % SODIUM CHLORIDE 1000ML 1,000 ML 999 ML IV (11:05)
[2024-12-29 12:35] VITALS: BP 154/82; PULSE 72; RESP 16; O2SAT 96
== END 2024-12-29 12:39 | disposition home or self-care (01) ==
LOC: INF 10:54
PROVIDERS: PCP Family Medicine; Visit Provider Internal Medicine Hematology & Oncology
DX: C7B.8 Other secondary neuroendocrine tumors (principal)
CPT/HCPCS: 96360; J7030

== ENCOUNTER 2025-01-05 10:44 | Outpatient (CLI) | payer MEDICARE, SELFPAY ==
--- OUTSIDE RECORDS SUMMARY | 2024-11-10 14:00 | XMS_ITS | Encounter Summary ---
Author Organization [facility] Address [address] 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 No 12/01/2023 CAGE ASSESSMENT Answer [...] t volodymyr in the morning (EYE-DIRECTOR OF PRODUCT DESIGN) to steady your nerves or to get rid of a hangover? 0 12/02/2023 CAGE Questionnaire Score 0 024 Utilities Answer Date Recorded In the past 12 months has th e [employer] gas, oil, or water company threatened to [...] had. Currently in hospice. Will discuss with tobacco feeder catcher and surgeon who placed PEG and get [...] Connections: Unknown (03/08/2023) Received from [facility] Family and Community Support Help with [...] will contact us. I spent 30 minutes sivy-nw-wcgs with the patient and isk-tnvb-if-face time, over half in discussionof the diagnosis and the importance of compliance with the treatment plan. Faustino Topete MD, FACP [facility] [address] , [place] [address] documented in this encounter Plan of Treatment [...] 2.4 mg/dL 11/10/2024 4:[address] [facility] Blood Venous blood specimen / Unknown Venipuncture / Unknown 11/10/2024 4:02 PM EDT 11/10/2024 4:18 PM EDT us Faustino Topete MD LAB BLOOD ORDERABLES Final R esult [facility] [address] [place] [address] * (ABNORMAL) 5-HIAA, Plasma (11/10/2024 4:02 PM EDT) Pathologist [facility] Fasting greater than or equal to 8 hours? Yes 11/23/2024 4:[address] [facility] 5-Hydroxyindole acetic Acid (HIAA), Plasma 58(H) <=22 ng/ml 11/23/2024 4:20 PM EDT [facility] ([facility]) Blood Venous blood specimen / Unknown Venipuncture / Unknown 11/10/2024 4:02 PM EDT 11/10/2024 4:12 PM EDT Narrative [facility] ([facility]) - 11/23/2024 4:20 PM EDT This GCMS assay was developed and its performance characteristics determined by [facility]. It has not been cleared or approved by the FDA and such approval or clearance is not required at this time. Values obtained with different methods, different laboratories or with kits cannot be used interchangeably with the results on this report. The results cannot be interpreted as absolute evidence of the presence or absence of malignant disease. Performed By: [facility] [address] [place] [address]<lb> us Faustino Topete MD LAB BLOOD ORDERABLES Final R esult [facility] ([facility]) [facility] [address] [place] [address] * (ABNORMAL) Chromogranin A (11/10/2024 4:02 PM EDT) CHROMOGRANIN A 1622(H) <93 ng/mL 11/14/2024 6:56 PM EDT [facility] ([facility]) Comment: Impaired renal or hepatic function or treatment with proton pump inhibitors may result in artifactual elevations of Chromogranin A. ADDITIONAL INFORMATION The testing method is a homogeneous time-resolved immunofluorescent assay manufactured by [employer] and performed on the [employer] Kryptor Compact Plus. Values obtained with different [...] examination and other findings. Test Performed by: [facility] [address] [place] [address] A Auxiliary: David Hawkins Ph.D.; CLIA# [id number] Blood Venous blood specimen / Unknown Venipuncture / Unknown 11/10/2024 4:02 PM EDT 11/10/2024 4:19 PM EDT Faustino oTpete MD LAB BLOOD ORDERABLES Final R esult Performing Organization Address [facility] Co de Phone Number [facility] ([facility]) * (ABNORMAL) Serotonin, Serum (11/10/2024 4:02 PM EDT) SEROTONIN 1449(H) 50 - 220 ng/mL 11/13/2024 6:02 AM EDT [facility] Serum Venous blood specimen / Unknown 11/10/2024 4:02 PM EDT 11/10/2024 4:18 PM EDT Narrative [facility] ([facility]) - 11/13/2024 6:02 AM EDT TEST INFORMATION: Serotonin, Serum This test was developed and its performance characteristics determined by [facility]. It has not been cleared or approved by the US Food and Drug Administration. This test was performed in a CLIA certified laboratory and is intended for clinical purposes. Performed By: [facility] [address] [place] [id number] Environmental Science Program Director: Kurt Borges MD, PhD CLIA Number: [id number] Faustino Topete MD LAB BLOOD ORDERABLES Final R esult Performing Organization Address [facility] Co de Phone Number [facility] [address] [place] [address] * (ABNORMAL) Comprehensive metabolic panel (11/10/2024 4:02 PM EDT) Glucose, Plasma 92 74 - 99 mg/dL 11/10/2024 4:51 PM EDT [facility] BUN, Plasma 14 8 - 23 mg/dL 11/10/2024 4:51 PM EDT [facility] Creatinine, Plasma 0.57(L) 0.60 - 1.10 mg/dL 11/10/2024 4:51 PM EDT [facility] BUN/Creatinine Ratio 25 11/10/2024 4:51 PM EDT [facility] Sodium, Plasma 141 136 - 145 mmol/L 11/10/2024 4:51 PM EDT [facility] Potassium, Plasma 3.4(L) 3.6 - 4.9 mmol/L 11/10/2024 4:51 PM EDT [facility] Chloride, Plasma 106 97 - 107 mmol/L 11/10/2024 4:51 PM EDT [facility] CO2, Plasma 21(L) 22 - 29 mmol/L 11/10/2024 4:51 PM EDT [facility] Anion Gap 14 6 - 16 mmol/L 11/10/2024 4:51 PM EDT [facility] Total Calcium, Plasma 8.6(L) 8.9 - 10.2 mg/dL 11/10/2024 4:51 PM EDT [facility] Total Protein 7.4 6.3 - 7.9 g/dL 11/10/2024 4:51 PM EDT [facility] Albumin, Plasma 3.8 3.5 - 5.2 g/dL 11/10/2024 4:51 PM EDT [facility] AST, Plasma 36(H) 10 - 35 U/L 11/10/2024 4:51 PM EDT [facility] ALT, Plasma 20 10 - 35 U/L 11/10/2024 4:51 PM EDT [facility] Alkaline Phosphatase, Plasma 98 46 - 142 U/L 11/10/2024 4:51 PM EDT [facility] Total Bilirubin, Plasma 0.3 0.2 - 1.1 mg/dL 11/10/2024 4:51 PM EDT [facility] eGFRcr 91.4 mL/min/1.7 3m*2 11/10/2024 4:51 PM EDT [facility] Comment:Reported eGFRcr in m L/min/1.73m2 is based the CKD-EPI 2020 equation that does not use a race coefficient. Blood Venous blood specimen / Unknown Venipuncture / Unknown 11/10/2024 4:02 PM EDT 11/10/2024 4:18 PM EDT us Faustino Topete MD LAB BLOOD ORDERABLES Final R esult [facility] [address] [place] [address] * (ABNORMAL) CBC and differential (11/10/2024 4:02 PM EDT) WBC Count 6.30 3.70 - 10.30 10*3/uL LAB HEMATOLOGY METHOD 11/10/2024 5:55 PM EDT [facility] RBC Count 4.67 3.90 - 5.20 10*6/uL LAB HEMATOLOGY METHOD 11/10/2024 5:55 PM EDT [facility] HGB 11.7 11.2 - 15.7 g/dL LAB HEMATOLOGY METHOD 11/10/2024 5:55 PM EDT [facility] HCT 37.8 34.0 - 45.0 % LAB HEMATOLOGY METHOD 11/10/2024 5:55 PM EDT [facility] Platelet Count 138(L) 155 - 369 10*3/uL LAB HEMATOLOGY METHOD 11/10/2024 5:55 PM EDT [facility] MCV 81 79 - 98 fL LAB HEMATOLOGY METHOD 11/10/2024 5:55 PM EDT [facility] MCH 25.1(L) 26.0 - 32.0 pg LAB HEMATOLOGY METHOD 11/10/2024 5:55 PM EDT [facility] MCHC 31.0 30.7 - 35.5 g/dL LAB HEMATOLOGY METHOD 11/10/2024 5:55 PM EDT [facility] RDW 16.1(H) 11.5 - 14.5 % LAB HEMATOLOGY METHOD 11/10/2024 5:55 PM EDT [facility] MPV LAB HEMATOLOGY METHOD 11/10/2024 5:55 PM EDT [facility] Comment:Not Measured nRBC 0.0 <=0.0 per 100 WBCs LAB HEMATOLOGY METHOD 11/10/2024 5:55 PM EDT [facility] Differential Type Automated LAB HEMATOLOGY METHOD 11/10/2024 5:55 PM EDT [facility] Neutrophils % 75 % LAB HEMATOLOGY METHOD 11/10/2024 5:55 PM EDT [facility] Lymphocytes % 15 % LAB HEMATOLOGY METHOD 11/10/2024 5:55 PM EDT [facility] Monocytes % 9 % LAB HEMATOLOGY METHOD 11/10/2024 5:55 PM EDT [facility] Eosinophils % 1 % LAB HEMATOLOGY METHOD 11/10/2024 5:55 PM EDT [facility] Basophils % 0 % LAB HEMATOLOGY METHOD 11/10/2024 5:55 PM EDT [facility] Immature Granulocytes % 0 % LAB HEMATOLOGY METHOD 11/10/2024 5:55 PM EDT [facility] Neutrophils Absolute 4.69 1.60 - 6.10 10*3/uL LAB HEMATOLOGY METHOD 11/10/2024 5:55 PM EDT [facility] Lymphocytes Absolute 0.95(L) 1.20 - 3.90 10*3/uL LAB HEMATOLOGY METHOD 11/10/2024 5:55 PM EDT [facility] Monocytes Absolute 0.54 0.30 - 0.90 10*3/uL LAB HEMATOLOGY METHOD 11/10/2024 5:55 PM EDT [facility] Eosinophils Absolute 0.08 0.00 - 0.50 10*3/uL LAB HEMATOLOGY METHOD 11/10/2024 5:55 PM EDT [facility] Basophils Absolute 0.02 0.00 - 0.10 10*3/uL LAB HEMATOLOGY METHOD 11/10/2024 5:55 PM EDT [facility] Immature Granulocytes Absolute 0.02 0.00 - 0.06 10*3/uL LAB HEMATOLOGY METHOD 11/10/2024 5:55 PM EDT [facility] Blood Venous blood specimen / Unknown Venipuncture / Unknown 11/10/2024 4:02 PM EDT 11/10/2024 4:27 PM EDT [facility] - 11/10/2024 5:55 PM EDT Therapeutic decision making should be based on absolute values, rather than percentages. us Faustino Topete MD LAB BLOOD ORDERABLES Final R esult [facility] [address] [place] [address] documented in this encounter Visit Diagnoses Diagnosis [...] documented as of this encounter Care Teams Patent Searcher Relationship Specialty Start Date End Date Armani Campa MD [address] [place] [address] PCP - General 10/19/22 Kylee James APRN [address] [place] [address] [address] Nurse Practitioner Medical Oncology 03/30/23 Faustino Topete MD [address] [place] [address] [address] Consulting Physician Medical Oncology 12/01/23 documented as of this encounter
--- OUTSIDE RECORDS SUMMARY | 2024-12-05 10:30 | XMS_ITS | Encounter Summary ---
Author Organization [facility] Address [address] [place] [address] Care Team Providers Care Medical Editor Name Role Phone Armani Campa MD Primary Care Provider [phone] Kylee James CLIP COATER Unavailable [phone] Faustino Topete MD Unavailable [phone] Reason for Visit * Reason Comments Routine Follow-up Encounter Details Date Type Department Care Team (Late st Contact Info) Description 12/05/2024 10:30 AM EDT Office Visit [facility] Multidisciplinary Oncology Clinic [address] [place] [address] Shannon Aguero, CLIP COATER 800 [facility] [address] [place] [address] Metastatic malignant neuroendocrine tumor to [...] drink first t volodymyr in the morning (EYE-ELASTIC ASSEMBLER) to steady your nerves or to [...] prn. She continues to get IVFs at [facility] once a week. She is staking [...] to get IVF's once a week at [facility] in [place] - She prefers not to get scanned at this time - Continue KCL 20 meq daily Telehealth Statement Patient Verification Patient identity has been confirmed using name and date of ? Yes Authorizations and Agreements/Telemedicine Consent sent and consent confirmed? Yes Patient Location: Home/Other Patient confirms they are physically located in [place]? Yes If the patient is not physically located in [place], the provider has confirmed with [facility] thatthe provider is authorized to provide services in patient's stated location? N/A Provider Location: [facility] facility Audio and video or [...] in patients with cancer. Shannon Aguero, MERCEDES, CLIP COATER, TANK PROCESSOR-C Division of Medical Oncology documented in this [...] as of this encounter Care Teams Medical Editor Relationship Specialty Start Date End Date Armani Campa MD [address] [place] [address] PCP - General 10/19/22 Kylee James APRN [address] Rosemarie Cheung [address] [address] Nurse Practitioner Medical Oncology 03/30/23 Faustino Topete MD [address] [facility] [address] [place] [address] Consulting Physician Medical Oncology 12/01/23 documented as of this encounter
--- OUTSIDE RECORDS SUMMARY | 2025-01-05 10:48 | XMS_ITS | Encounter Summary ---
Author Organization [facility] Address [address] [place] [address] Care Team Providers Care Otr Flatbed [employer] Truck Driver Name Role Phone Armani Campa MD Primary Care Provider [phone] Kylee James APRN Unavailable [phone] Faustino Topete MD Unavailable [phone] Encounter Details Date Type Department Care Team [...] drink first t volodymyr in the morning (EYE-SECONDARY SOCIAL STUDIES TEACHER) to steady your nerves or to get [...] documented as of this encounter Care Teams [employer] Truck Driver Relationship Specialty Start Date End Date Armani Campa MD [address] [place], [place] [id number] PCP - General 10/19/22 Kylee James APRN [address] [address] Nurse Practitioner Medical Oncology 03/30/23 Faustino Topete MD [address] [address] Consulting Physician Medical Oncology 12/01/23 documented as of this encounter
--- OUTSIDE RECORDS SUMMARY | 2025-01-05 10:48 | XMS_ITS | Encounter Summary ---
Author Organization [facility] Address [address] [place] [address] Care Team Providers Care Medical Terminologist Name Role Phone Armani Campa MD Primary Care Provider [phone] Kylee James APRN Unavailable [phone] Faustino Topete MD Unavailable [phone] Reason for Visit * Reason Onset Date Comments new start 11/21/2024 Encounter Details Date Type Department Care Team (Late st Contact Info) Description 11/21/2024 Telephone [facility] [address] [place] [phone] Noble Burrell, PharmD Social History Tobacco Use Types Packs/Day Years [...] drink first t volodymyr in the morning (EYE-RECYCLING ATTENDANT) to steady your nerves or to get [...] as of this encounter Care Teams Medical Terminologist Relationship Specialty Start Date End Date Armani Campa MD [address] [place] [address] PCP - General 10/19/22 Kylee James APRN [address] [address] Nurse Practitioner Medical Oncology 03/30/23 Faustino Topete MD [address] [place] [address] [address] Consulting Physician Medical Oncology 12/01/23 documented as of this encounter
--- OUTSIDE RECORDS SUMMARY | 2025-01-05 10:48 | XMS_ITS | Clinical Summary ---
Author Organization [facility] Address [address] [place] [address] Care Team Providers Care Grape Pruner Name Role Phone Armani Campa MD Primary Care Provider [phone] Kylee James APRN Unavailable [phone] Faustino Topete MD Unavailable [phone] Allergies No known active allergies Medications alendronate [...] Take 1 tablet by mouth daily. 08/18/19 25 Active prochlorperazine (Compazine) 10 MG tablet Take 1 tablet by mouth every 6 hours as needed for nausea or vomiting. 12/14/19 24 Active octreotide (SandoSTATIN) 1000 MCG/ML injectionIndicatio ns:Malignant neuroendocrine neoplasm (CMS/HCC) Inject 0.2 mL under the skin 3 times a day as needed (diarrhea). 90 mL 5 11/22/19 25 Active [place] [facility] Sy[facility] [place] dispense appropriate needles and syringes for octreotide injection 90 each 3 11/30/19 25 Active UltiCare Insulin Syringe 31G X 10/13 0.3 ML [facility] 12/05/19 Active KLOR-CON 20 MEQ ER tablet 12/05/19 25 Active Active Problems Problem Noted Date [...] Description 12/05/2024 10:30 AM EDT Office Visit [facility] Multidisciplinary Oncology Clinic [address] [place] [phone] Shannon Aguero, RESIDENTIAL GLAZIER 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) 12/05/2024 Travel 11/29/2024 Refill [facility] [address] [place] [address] Marlin Guevara, PharmD 11/21/2024 Telephone [facility] [address] [place] [address] Noble Burrell, PharmD new start 11/21/2024 Refill [facility] [address] [place] [address] Faustino Topete MD Malignant neuroendocrine neoplasm (CMS/HCC) 11/15/2024 Orders Only [facility] [address] [place] [phone] Faustino Topete MD 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) 11/13/2024 Telephone [facility] [address] [place] [address] Faustino Topete MD 11/10/2024 2:00 PM EDT Office Visit [facility] Multidisciplinary Oncology Clinic [address] [place] [address] Faustino Topete MD 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); 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); Diarrhea, unspecified type 11/10/2024 Travel 11/09/2024 Travel 10/24/2024 Telephone [facility] [address] [place] [address] Faustino Topete MD 10/11/2024 Telephone [facility] [address] [place] [address] Faustino Topete MD from Last 3 Months Immunizations Immunization Administration Dates Next Due Influenza, high-dose, quadrivalent 03/11/2022 Joselo COVID-19 Vaccine (Blue Cap) 18+ 08/08/19 21 Moderna COVID-19 Vaccine (Specialty Sales Consultant) 12+ years Moderna COVID-19 Vaccine Bivalent 6months+ [...] drink first t volodymyr in the morning (EYE-DERRICKMAN HELPER) to steady your nerves or to [...] Years (1 of 2 - PCV) 1964 [id number] Vaccine (6 - 2023- season) 2024 03/12/2024, 03/12/2023, 03/11/2022, [...] 1622(H) <93 ng/mL 11/14/2024 6:56 PM EDT [facility] ([facility]) Comment: Impaired renal or hepatic function or treatment with proton pump inhibitors may result in artifactual elevations of Chromogranin A. ADDITIONAL INFORMATION The testing method is a homogeneous time-resolved immunofluorescent assay manufactured by [employer] and performed on the [employer] Kryptor Compact Plus. Values obtained with different [...] examination and other findings. Test Performed by: [facility] [place] [address] Axle Turner: David Hawkins Ph.D.; CLIA# [id number] Blood Venous blood specimen / Unknown Venipuncture / Unknown 11/10/2024 4:02 PM EDT 11/10/2024 4:19 PM EDT us Faustino Topete MD LAB BLOOD ORDERABLES Final R esult [facility] ([facility]) * (ABNORMAL) 5-HIAA, Plasma (11/10/2024 4:02 PM EDT) Pathologist [facility] Fasting greater than or equal to 8 hours? Yes 11/23/2024 4:20 PM EDT [facility] 5-Hydroxyindole acetic Acid (HIAA), Plasma 58(H) <=22 ng/ml 11/23/2024 4:20 PM EDT [facility] ([facility]) Blood Venous blood specimen / Unknown Venipuncture / Unknown 11/10/2024 4:02 PM EDT 11/10/2024 4:12 PM EDT Narrative [facility] ([facility]) - 11/23/2024 4:20 PM EDT This GCMS assay was developed and its performance characteristics determined by [facility]. It has not been cleared or approved by the FDA and such approval or clearance is not required at this time. Values obtained with different methods, different laboratories or with kits cannot be used interchangeably with the results on this report. The results cannot be interpreted as absolute evidence of the presence or absence of malignant disease. Performed By: [facility] [address] [place] [id number]<lb> us Faustino Topete MD LAB BLOOD ORDERABLES Final R [facility] ([facility]) [facility] [address] [place] [address] * (ABNORMAL) CBC and differential (11/10/2024 4:02 PM EDT) Pathologist [facility] WBC Count 6.30 3.70 - 10.30 10*3/uL LAB HEMATOLOGY METHOD 11/10/2024 5:55 PM EDT [facility] RBC Count 4.67 3.90 - 5.20 10*6/uL LAB HEMATOLOGY METHOD 11/10/2024 5:55 PM EDT [facility] HGB 11.7 11.2 - 15.7 g/dL LAB HEMATOLOGY METHOD 11/10/2024 5:55 PM EDT [facility] HCT 37.8 34.0 - 45.0 % LAB HEMATOLOGY METHOD 11/10/2024 5:55 PM EDT [facility] Platelet Count 138(L) 155 - 369 10*3/uL LAB HEMATOLOGY METHOD 11/10/2024 5:55 PM EDT [facility] MCV 81 79 - 98 fL LAB HEMATOLOGY METHOD 11/10/2024 5:55 PM EDT [facility] MCH 25.1(L) 26.0 - 32.0 pg LAB HEMATOLOGY METHOD 11/10/2024 5:55 PM EDT [facility] MCHC 31.0 30.7 - 35.5 g/dL LAB HEMATOLOGY METHOD 11/10/2024 5:55 PM EDT [facility] RDW 16.1(H) 11.5 - 14.5 % LAB HEMATOLOGY METHOD 11/10/2024 5:55 PM EDT [facility] MPV LAB HEMATOLOGY METHOD 11/10/2024 5:55 PM EDT [facility] Comment:Not Measured nRBC 0.0 <=0.0 per 100 WBCs LAB HEMATOLOGY METHOD 11/10/2024 5:55 PM EDT [facility] Differential Type Automated LAB HEMATOLOGY METHOD 11/10/2024 5:55 PM EDT [facility] Neutrophils % 75 % LAB HEMATOLOGY METHOD 11/10/2024 5:55 PM EDT [facility] Lymphocytes % 15 % LAB HEMATOLOGY METHOD 11/10/2024 5:55 PM EDT [facility] Monocytes % 9 % LAB HEMATOLOGY METHOD 11/10/2024 5:55 PM EDT [facility] Eosinophils % 1 % LAB HEMATOLOGY METHOD 11/10/2024 5:55 PM EDT [facility] Basophils % 0 % LAB HEMATOLOGY METHOD 11/10/2024 5:55 PM EDT [facility] Immature Granulocytes % 0 % LAB HEMATOLOGY METHOD 11/10/2024 5:55 PM EDT [facility] Neutrophils Absolute 4.69 1.60 - 6.10 10*3/uL LAB HEMATOLOGY METHOD 11/10/2024 5:55 PM EDT [facility] Lymphocytes Absolute 0.95(L) 1.20 - 3.90 10*3/uL LAB HEMATOLOGY METHOD 11/10/2024 5:55 PM EDT [facility] Monocytes Absolute 0.54 0.30 - 0.90 10*3/uL LAB HEMATOLOGY METHOD 11/10/2024 5:55 PM EDT [facility] Eosinophils Absolute 0.08 0.00 - 0.50 10*3/uL LAB HEMATOLOGY METHOD 11/10/2024 5:55 PM EDT [facility] Basophils Absolute 0.02 0.00 - 0.10 10*3/uL LAB HEMATOLOGY METHOD 11/10/2024 5:55 PM EDT [facility] Immature Granulocytes Absolute 0.02 0.00 - 0.06 10*3/uL LAB HEMATOLOGY METHOD 11/10/2024 5:55 PM EDT [facility] Blood Venous blood specimen / Unknown Venipuncture / Unknown 11/10/2024 4:02 PM EDT 11/10/2024 4:27 PM EDT Narrative [facility] - 11/10/2024 5:55 PM EDT Therapeutic decision making should be based on absolute values, rather than percentages. us Faustino Topete MD LAB BLOOD ORDERABLES Final R esult [facility] [address] [place] [address] * (ABNORMAL) Serotonin, Serum (11/10/2024 4:02 PM EDT) SEROTONIN 1449(H) 50 - 220 ng/mL 11/13/2024 6:02 AM EDT [facility] ([facility]) Serum Venous blood specimen / Unknown 11/10/2024 4:02 PM EDT 11/10/2024 4:18 PM EDT Narrative [facility] ([facility]) - 11/13/2024 6:02 AM EDT TEST INFORMATION: Serotonin, Serum This test was developed and its performance characteristics determined by [facility]. It has not been cleared or approved by the [place] Food and Drug Administration. This test was performed in a CLIA certified laboratory and is intended for clinical purposes. Performed By: [facility] [address] [place] [address] Chuck Tender: Kurt Borges MD, PhD CLIA Number: [id number] Faustino Topete MD LAB BLOOD ORDERABLES Final R esult [facility] ([facility]) [address] [place] [address] * (ABNORMAL) Magnesium (11/10/2024 4:02 PM EDT) Magnesium, Plasma 1.5(L) 1.9 - 2.4 mg/dL 11/10/2024 4:51 PM EDT [facility] Blood Venous blood specimen / Unknown Venipuncture / Unknown 11/10/2024 4:02 PM EDT 11/10/2024 4:18 PM EDT Faustino Topete MD LAB BLOOD ORDERABLES Final R esult [facility] [address] [place] [address] * (ABNORMAL) Comprehensive metabolic panel (11/10/2024 4:02 PM EDT) Glucose, Plasma 92 74 - 99 mg/dL 11/10/2024 4:51 PM EDT [facility] BUN, Plasma 14 8 - 23 mg/dL 11/10/2024 4:51 PM EDT [facility] Creatinine, Plasma 0.57(L) 0.60 - 1.10 mg/dL 11/10/2024 4:51 PM EDT [facility] BUN/Creatinine Ratio 25 11/10/2024 4:51 PM EDT [facility] Sodium, Plasma 141 136 - 145 mmol/L 11/10/2024 4:51 PM EDT [facility] Potassium, Plasma 3.4(L) 3.6 - 4.9 mmol/L 11/10/2024 4:51 PM EDT [facility] Chloride, Plasma 106 97 - 107 mmol/L 11/10/2024 4:51 PM EDT [facility] CO2, Plasma 21(L) 22 - 29 mmol/L 11/10/2024 4:51 PM EDT [facility] Anion Gap 14 6 - 16 mmol/L 11/10/2024 4:51 PM EDT [facility] Total Calcium, Plasma 8.6(L) 8.9 - 10.2 mg/dL 11/10/2024 4:51 PM EDT [facility] Total Protein 7.4 6.3 - 7.9 g/dL 11/10/2024 4:51 PM EDT [facility] Albumin, Plasma 3.8 3.5 - 5.2 g/dL 11/10/2024 4:51 PM EDT [facility] AST, Plasma 36(H) 10 - 35 U/L 11/10/2024 4:51 PM EDT [facility] ALT, Plasma 20 10 - 35 U/L 11/10/2024 4:51 PM EDT [facility] Alkaline Phosphatase, Plasma 98 46 - 142 U/L 11/10/2024 4:51 PM EDT [facility] Total Bilirubin, Plasma 0.3 0.2 - 1.1 mg/dL 11/10/2024 4:51 PM EDT [facility] eGFRcr 91.4 mL/min/1.7 3m*2 11/10/2024 4:51 PM EDT [facility] Comment:Reported eGFRcr in m L/min/1.73m2 is based the CKD-EPI 2020 equation that does not use a race coefficient. Blood Venous blood specimen / Unknown Venipuncture / Unknown 11/10/2024 4:02 PM EDT 11/10/2024 4:18 PM EDT us Faustino Topete MD LAB BLOOD ORDERABLES Final R esult [facility] [address] [place] [address] from Last 3 Months Insurance [employer] MEDICARE [...] Patient has decision-making capacity? Yes Care Teams Grape Pruner Relationship Specialty Start Date End Date Armani Campa MD [address] [place] [address] PCP - General 10/19/22 Kylee James APRN [address] [address] Nurse Practitioner Medical Oncology 03/30/23 Faustino Topete MD [address] [address] Consulting Physician Medical Oncology 12/01/23
--- OUTSIDE RECORDS SUMMARY | 2025-01-05 10:48 | XMS_ITS | Encounter Summary ---
Author Organization [facility] Address [address] [place] [address] Care Team Providers Care Shactor Helper Name Role Phone Armani Campa MD Primary Care Provider + Reason for Visit * Reason Comments Med Refill Encounter Details Date Type Department Care Team (Late st Contact Info) Description 04/01/2023 Refill [facility] [address] [place] [address] Armani Campa MD [address] [place] [address] Primary osteoarthritis of right knee [...] Description 02/15/2025 3:15 PM EDT Office Visit [facility] [address] [place] [phone] Armani Campa MD [address] [place] [address] documented as of this encounter Visit Diagnoses Diagnosis Primary osteoarthritis of right knee documented in this encounter Care Teams Shactor Helper Relationship Specialty Start Date End Date Armani Campa MD [address] [place] [address] PCP - General Family Medicine 12/25/21 documented as of this encounter
--- OUTSIDE RECORDS SUMMARY | 2025-01-05 10:48 | XMS_ITS | Encounter Summary ---
Author Organization [facility] Address [address] [place] [address] Care Team Providers Care Diet Tech Name Role Phone Armani Cortes MD Primary Care Provider + Reason for Visit * Reason Onset Date Comments Med Management 11/06/2024 Encounter Details Date Type Department Care Team (Late st Contact Info) Description 11/06/2024 Telephone [facility] [address] [place] [address] Armani Cortes MD [address] [place] [address] Med Management Social History Tobacco [...] encounter Miscellaneous Notes * Telephone Encounter - Kinana Giraldo RegSched Rep - 11/06/2024 1:04 PM EDT Pharmacy Name: [facility] Pharmacy signs and displays sales representative phone number: [phone] What medication are you calling in regards [...] [facility] [address] [place] [phone] Armani Cortes MD [address] [place] [address] documented as of this encounter Visit Diagnoses Diagnosis 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
--- OUTSIDE RECORDS SUMMARY | 2025-01-05 10:48 | XMS_ITS | Encounter Summary ---
Author Organization [facility] Address [address] [place] [address] Care Team Providers Care Cook Seafood Name Role Phone Armani Campa MD Primary Care Provider [phone] Kylee James APRN Unavailable [phone] Faustino Topete MD Unavailable [phone] Encounter Details Date Type Department Care Team [...] drink first t volodymyr in the morning (EYE-GAS ENGINE MECHANIC) to steady your nerves or to [...] documented as of this encounter Care Teams Cook Seafood Relationship Specialty Start Date End Date Armani Campa MD [address] [place], [place] [phone] PCP - General 10/19/22 Kylee James APRN [address] [address] Nurse Practitioner Medical Oncology 03/30/23 Faustino Topete MD [address] [address] Consulting Physician Medical Oncology 12/01/23 documented as of this encounter
--- OUTSIDE RECORDS SUMMARY | 2025-01-05 10:48 | XMS_ITS | Encounter Summary ---
Author Organization [facility] Address [address] [place] [address] Care Team Providers Care Class C Driver Name Role Phone Armnai Campa MD Primary Care Provider [phone] Kylee James EXPLOSIVES MIXER OPERATOR Unavailable [phone] Faustino Topete MD Unavailable [phone] Reason for Visit * Reason Onset Date Comments Med Refill 11/21/2024 Encounter Details Date Type Department Care Team (Late st Contact Info) Description 11/21/2024 Refill [facility] [address] [place] [address] Faustino Topete MD [address] [address] Malignant neuroendocrine neoplasm (CMS/HCC) Social [...] place to sleep or slept in a assisted (including now)? No 12/01/2023 CAGE ASSESSMENT Answer [...] drink first t volodymyr in the morning (EYE-PHYSICIAN SCRIBE) to steady your nerves or to get [...] documented as of this encounter Care Teams Class C Driver Relationship Specialty Start Date End Date Armani Campa MD [address] [place] [address] PCP - General 10/19/22 Kylee James APRN [address] [address] Nurse Practitioner Medical Oncology 03/30/23 Faustino Topete MD [address] [address] Consulting Physician Medical Oncology 12/01/23 documented as of this encounter
--- OUTSIDE RECORDS SUMMARY | 2025-01-05 10:48 | XMS_ITS | Encounter Summary ---
Author Organization [facility] Address [address] [place] [address] Care Team Providers Care Cigar Tobacco Rehandler Name Role Phone Armani Campa MD Primary Care Provider [phone] Kylee James APRN Unavailable [phone] Faustino Topete MD Unavailable [phone] Encounter Details Date Type Department Care Team [...] drink first t volodymyr in the morning (EYE-PLUG WIRER) to steady your nerves or to get rid of a hangover? 0 12/02/2023 CAGE Questionnaire Score 0 024 Utilities Answer Date Recorded In the past 12 months has th e [employer] gas, oil, or water [employer] threatened to shut off services in your [...] documented as of this encounter Care Teams Cigar Tobacco Rehandler Relationship Specialty Start Date End Date Armani Campa MD [address] [place] [address] PCP - General 10/19/22 Kylee James APRN [address] [address] Nurse Practitioner Medical Oncology 03/30/23 Faustino Topete MD [address] [address] Consulting Physician Medical Oncology 12/01/23 documented as of this encounter
--- OUTSIDE RECORDS SUMMARY | 2025-01-05 10:48 | XMS_ITS | Encounter Summary ---
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 Pharmacy where request should be sent: [id number] [place] [facility] [address] [phone] [facility] [phone] Last office visit with prescribing clinician: 10/10/2024 [...] Description 02/15/2025 3:15 PM EDT Office Visit [facility] [address] 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
--- OUTSIDE RECORDS SUMMARY | 2025-01-05 10:48 | XMS_ITS | Clinical Summary ---
Author Organization [facility] Address [address] [place] [address] Care Team Providers Care Medical Assistant Float Name Role Phone Armani Campa MD Primary [...] fracture 12/25/2021 Overactive bladder 12/25/2021 Hypokalemia 12/25/2021 intermediate project manager (current) use of n on-steroidal anti-inflammatories (nsaid) [...] MD New Med Request 10/11/2024 Results Follow-Up [facility] [address] [place], [place] [address] Armani Campa MD 10/10/2024 11:00 AM EDT [...] [facility] [address] [facility] [place] [address] Armani Campa MD [address] [place] [address] Health Maintenance Due Date Last Done [...] 11:1 8 AM EDT 10/10/2024 Narrative [facility] ([facility]ATORY) - 10/11/2024 4:07 AM EDT Performed at: - [address] [id number] It Lead: Huang Medina PhD, Phone: [phone] Patient Fasting: N Armani Campa MD LAB BLOOD ORDERABLES Fin al Result [facility] (AMBULATORY) [address] [id number], [facility] [address] [place] [address], [place] [phone] * SCANNED - DEXA (01/28/2022) Anatomical Region Laterality Modality Other Armani Campa MD CHART REVIEW TABS Fin al Result from Last 3 Months or Most Recently Relevant to Health Maintenance Insurance [employer] MED[employer] ADVANTAGE HMO Advance Directives Documents on File Type Date Recorded Patient Product Marketing Engineer Expl anation LIVING WILL - SCAN 01/28/2022 11:09 AM [facility] SURROGATE, [facility], 05/20/2021 Care Teams Medical Assistant Float Relationship Specialty Start Date End Date Armani Campa MD [address] [facility] [place] [address] PCP - General Family Medicine 12/25/21
--- OUTSIDE RECORDS SUMMARY | 2025-01-05 10:48 | XMS_ITS | Encounter Summary ---
Author Organization [facility] Address [address] [place] [address] Care Team Providers Care Balance Bridge Inspector Name Role Phone Armani Campa MD Primary Care Provider [phone] Kylee James APRN Unavailable [phone] Faustino Ruano MD Unavailable [phone] Encounter Details Date Type Department Care Team (Late st Contact Info) Description 11/13/2024 Telephone [facility] [address] [place] [address] Faustino Ruano MD [address] [facility] [address] [place] [address] Social History Tobacco Use Types [...] drink first t volodymyr in the morning (EYE-AGENT TELEGRAPHER) to steady your nerves or to get [...] was left IVF order sent in to [facility] and noted dr ruano's message on the serotonin level * Telephone Encounter - Leticia Bowen - 11/13/2024 12:18 PM EDT Melody not listed on pts preferred contacts, no answer from pt. * Telephone Encounter - Fransisca Jasso - 11/13/2024 11:39 AM EDT Patient Phone Message Reason for Call: Melody was worried about her serotonin level and IV fluids in her hometown [facility]- Can you Melody back? Best contact number and optimal time of day to reach caller: [phone] Note: Please do not reply to this message. Follow-up communication and further actions as a result of this message need to be communicated with the patient directly, if the patient is not active onMyChart. If the patient is active on MyChart, they will receive notification of the communication/outcome via [employer]. documented in this encounter Plan of Treatment [...] documented as of this encounter Care Teams Balance Bridge Inspector Relationship Specialty Start Date End Date Armani Campa MD [address] [place] [address] PCP - General 10/19/22 Kylee James APRN [address] Cheung [address] [address] Nurse Practitioner Medical Oncology 03/30/23 Faustino Ruano MD [address] Cheung [address] [address] Consulting Physician Medical Oncology 12/01/23 documented as of this encounter
--- OUTSIDE RECORDS SUMMARY | 2025-01-05 10:48 | XMS_ITS | Encounter Summary ---
Author Organization [facility] Address [address] [place] [address] Care Team Providers Care Match Up Person Name Role Phone Armani Campa MD Primary Care Provider + Encounter Details Date Type Department Care Team (Late st Contact Info) Description 10/11/2024 Results Follow-Up [facility] [address] [place] [address] Armani Campa MD [address] [place] [address] Social History Tobacco Use Types [...] Description 02/15/2025 3:15 PM EDT Office Visit [facility] [address] [place] [address] Armani Campa MD 210 [facility] [place] [address] documented as of this encounter Visit Diagnoses Not on filedocumented in this encounter Additional Health Concerns Assessment Noted Time PHQ-2 Depression Total Score: 1 02/15/20 24 10:24 AM EDT documented as of this encounter Care Teams Match Up Person Relationship Specialty Start Date End Date Armani Campa MD [address] [place] [address] PCP - General Family Medicine 12/25/21 documented as of this encounter
--- OUTSIDE RECORDS SUMMARY | 2025-01-05 10:48 | XMS_ITS | Encounter Summary ---
Author Organization [facility] Address [address] [place] [address] Care Team Providers Care Oxygen Equipment Aide Name Role Phone Armani Campa MD Primary Care Provider [phone] Kylee James ANGLE BENDER Unavailable [phone] Faustino Topete MD Unavailable [phone] Encounter Details Date Type Department Care Team (Late st Contact Info) Description 11/15/2024 Orders Only [facility] [address] [place] [address] Faustino Topete MD 800 [facility] [address] [place] [address] Metastatic malignant neuroendocrine tumor to [...] drink first t volodymyr in the morning (EYE-DOCTOR OF NURSE ANESTHESIA) to steady your nerves or to get rid of a hangover? 0 12/02/2023 CAGE Questionnaire Score 0 024 Utilities Answer Date Recorded In the past 12 months has th e [employer], gas, oil, or water company threatened to [...] documented as of this encounter Care Teams Oxygen Equipment Aide Relationship Specialty Start Date End Date Armani Campa MD [address] [place] [address] PCP - General 10/19/22 Kylee James APRN [address] Rosemarie Cheung [facility] [address] [place] [address] Nurse Practitioner Medical Oncology 03/30/23 Faustino Topete MD [address] Rosemarie Cheung [facility] [address] [place] [address] Consulting Physician Medical Oncology 12/01/23 documented as of this encounter
--- OUTSIDE RECORDS SUMMARY | 2025-01-05 10:48 | XMS_ITS | Encounter Summary ---
Author Organization [facility] Address [address] [place] [address] Care Team Providers Care Steel Sash Erector Name Role Phone Armani Campa MD Primary Care Provider [phone] Kylee James APRN Unavailable [phone] Faustino Topete MD Unavailable [phone] Encounter Details Date Type Department Care Team (Late st Contact Info) Description 11/29/2024 Refill [facility] [address] [place] [address] Marlin Guevara, PharmD [address] [phone] Social History Tobacco Use Types Packs/Day Years [...] drink first t volodymyr in the morning (EYE-DRUM SAW OPERATOR) to steady your nerves or to [...] documented as of this encounter Care Teams Steel Sash Erector Relationship Specialty Start Date End Date Armani Campa MD [address] [place] [address] PCP - General 10/19/22 Kylee James APRN [address] [address] Nurse Practitioner Medical Oncology 03/30/23 Faustino Topete MD [address] [address] Consulting Physician Medical Oncology 12/01/23 documented as of this encounter
--- OUTSIDE RECORDS SUMMARY | 2025-01-05 10:48 | XMS_ITS ---
Author Organization [facility] Address [address] [place] [address] Care Team Providers Care Area Plant Manager Name Role Phone Armani Campa MD Primary Care Provider [phone] Kylee James APRN Unavailable [phone] Faustino Topete MD Unavailable [phone] Active Problems Problem Noted Date Diagnosed Date [...]
--- OUTSIDE RECORDS SUMMARY | 2025-01-05 10:48 | XMS_ITS | Encounter Summary ---
Author Organization [facility] Address [address] [place] [address] Care Team Providers Care Jira Developer Name Role Phone Armani Campa MD Primary Care Provider + Encounter Details Date Type Department Care Team (Late st Contact Info) Description 08/15/2024 Results Follow-Up [facility] [address] [place] [address] Armani Campa MD [address] [place] [address] Social History Tobacco Use Types [...] Description 02/15/2025 3:15 PM EDT Office Visit [facility] [address] [place] [address] Armani Campa MD [address] [facility] [place] [address] documented as of this encounter Visit Diagnoses Not on filedocumented in this encounter Additional Health Concerns Assessment Noted Time PHQ-2 Depression Total Score: 1 02/15/20 24 10:24 AM EDT documented as of this encounter Care Teams Jira Developer Relationship Specialty Start Date End Date Armani Campa MD [address] [place] [address] PCP - General Family Medicine 12/25/21 documented as of this encounter
--- OUTSIDE RECORDS SUMMARY | 2025-01-05 10:48 | XMS_ITS | Encounter Summary ---
Author Organization [facility] Address [address] [place] [address] Care Team Providers Care Recordings Librarian Name Role Phone Armani Campa MD Primary Care Provider + Reason for Visit * Reason Onset Date Comments MEDICATION ISSUE 11/07/2024 Encounter Details Date Type Department Care Team (Late st Contact Info) Description 11/07/2024 Telephone [facility] [address] [place] [address] Armani Campa MD [address] [place] [address] MEDICATION ISSUE Social History Tobacco [...] Davis Relationship: Self Best call back number: [phone] What was the call regarding: PHARMACY IS HAVING TROUBLE FINDING THE BRAND NAME FOR HER POTASSIUM. THEY SAID IF IT'S CHANGED TO GENERIC THEY CAN GET THAT. Is it okay if the provider responds through MyChart: NO documented in this encounter Plan of Treatment Upcoming Encounters Date Type Department Care Team (Late st Contact Info) Description 02/15/2025 3:15 PM EDT Office Visit [facility] [address] [facility] [place] [phone] Armani Campa MD [address] [place] [address] documented as of this encounter Visit Diagnoses Diagnosis Hypokalemia Hypopotassemia documented in this encounter Additional Health Concerns Assessment Noted Time PHQ-2 Depression Total Score: 1 02/15/20 24 10:24 AM EDT documented as of this encounter Care Teams Recordings Librarian Relationship Specialty Start Date End Date Armani Campa MD [address] [place] [address] PCP - General Family Medicine 12/25/21 documented as of this encounter
[2025-01-05 11:05] VITALS: BP 139/76; PULSE 72; RESP 16; O2SAT 95
[2025-01-05] MEDS: 0.9 % SODIUM CHLORIDE 1000ML 1,000 ML 999 ML IV (11:05)
[2025-01-05 12:35] VITALS: BP 151/83; PULSE 81; RESP 16; O2SAT 97
== END 2025-01-05 12:40 | disposition home or self-care (01) ==
LOC: INF 10:46
PROVIDERS: PCP Family Medicine; Visit Provider Internal Medicine Hematology & Oncology
DX: C7B.8 Other secondary neuroendocrine tumors (principal)
CPT/HCPCS: 96360; J7030

== ENCOUNTER 2025-01-12 10:45 | Outpatient (CLI) | payer MEDICARE, SELFPAY ==
--- OUTSIDE RECORDS SUMMARY | 2024-12-05 10:30 | XMS_ITS | Encounter Summary ---
Author Organization [facility] Address [address] [place] [address] Care Team Providers Care Practical Nurse Name Role Phone Armani Campa MD Primary Care Provider [phone] Kylee James POLYSOMNOGRAPHER Unavailable [phone] Faustino Topete MD Unavailable [phone] Reason for Visit * Reason Comments Routine Follow-up Encounter Details Date Type Department Care Team (Late st Contact Info) Description 12/05/2024 10:30 AM EDT Office Visit [facility] Multidisciplinary Oncology Clinic [address] [place] [address] Shannon Aguero, POLYSOMNOGRAPHER 800 [facility] [address] [place] [address] Metastatic malignant neuroendocrine tumor to [...] place to sleep or slept in a fpc (including now)? No 12/01/2023 CAGE ASSESSMENT Answer [...] drink first t volodymyr in the morning (EYE-OFFICE MAIL CLERK) to steady your nerves or to [...] prn. She continues to get IVFs at [facility] once a week. She is staking KCL [...] to get IVF's once a week at [facility] in [place] - She prefers not to get scanned at this time - Continue KCL 20 meq daily Telehealth Statement Patient Verification Patient identity has been confirmed using name and date of ? Yes Authorizations and Agreements/Telemedicine Consent sent and consent confirmed? Yes Patient Location: Home/Other Patient confirms they are physically located in [place]? Yes If the patient is not physically located in [place], the provider has confirmed with [facility] thatthe provider is authorized to provide services in patient's stated location? N/A Provider Location: [facility] facility Audio and video or audio [...] in patients with cancer. Shannon Aguero, MERCEDES, POLYSOMNOGRAPHER, CARDIOLOGY NURSE PRACTITIONER-C Division of Medical Oncology documented in this [...] documented as of this encounter Care Teams Practical Nurse Relationship Specialty Start Date End Date Armani Campa MD [address] [place] [address] PCP - General 10/19/22 Kylee James APRN [address] Rosemarie Cheung [address] [address] Nurse Practitioner Medical Oncology 03/30/23 Faustino Topete MD [address] [facility] [address] [place] [address] Consulting Physician Medical Oncology 12/01/23 documented as of this encounter
[2025-01-12] MEDS: 0.9 % SODIUM CHLORIDE 1000ML 1,000 ML 999 ML IV (10:49)
[2025-01-12] MEDS: SODIUM CHLORIDE 0.9% 10ML FLUSH SYRINGE 10 ML IV (10:49)
--- OUTSIDE RECORDS SUMMARY | 2025-01-12 10:50 | XMS_ITS | Encounter Summary ---
Author Organization [facility] Address [address] [place] [address] Care Team Providers Care Network Account Manager Name Role Phone Armani Campa MD Primary Care Provider [phone] Kylee James COPY CUTTER Unavailable [phone] Faustino Topete MD Unavailable [phone] Encounter Details Date Type Department Care Team (Late st Contact Info) Description 11/15/2024 Orders Only [facility] [address] [place] [address] Faustino Topete MD 800 [facility] [address] [place] [address] Metastatic malignant neuroendocrine tumor to [...] drink first t volodymyr in the morning (EYE-VACATION SALES ADVISOR) to steady your nerves or to get rid of a hangover? 0 12/02/2023 CAGE Questionnaire Score 0 024 Utilities Answer Date Recorded In the past 12 months has th e [employer], gas, oil, or water company threatened to [...] documented as of this encounter Care Teams Network Account Manager Relationship Specialty Start Date End Date Armani Campa MD [address] [place] [address] PCP - General 10/19/22 Kylee James APRN [address] Rosemarie Cheung [facility] [address] [place] [address] Nurse Practitioner Medical Oncology 03/30/23 Faustino Topete MD [address] Rosemarie Cheung [facility] [address] [place] [address] Consulting Physician Medical Oncology 12/01/23 documented as of this encounter
--- OUTSIDE RECORDS SUMMARY | 2025-01-12 10:50 | XMS_ITS ---
Author Organization [facility] Address [address] [place] [address] Care Team Providers Care Scanner Supervisor Name Role Phone Armani Campa MD Primary Care Provider [phone] Kylee James APRN Unavailable [phone] Faustino Topete MD Unavailable [phone] Active Problems Problem Noted Date Diagnosed Date [...]
--- OUTSIDE RECORDS SUMMARY | 2025-01-12 10:50 | XMS_ITS | Encounter Summary ---
Author Organization [facility] Address [address] [place] [address] Care Team Providers Care Irrigation Service Technician Name Role Phone Armani Campa MD Primary Care Provider + Reason for Visit * Reason Comments Med Refill Encounter Details Date Type Department Care Team (Late st Contact Info) Description 04/01/2023 Refill [facility] [address] [place] [address] Armani Campa MD [address] [place] [address] Primary osteoarthritis of right knee [...] Description 02/15/2025 3:15 PM EDT Office Visit [facility] [address] [place] [phone] Armani Campa MD [address] [place] [address] documented as of this encounter Visit Diagnoses Diagnosis Primary osteoarthritis of right knee documented in this encounter Care Teams Irrigation Service Technician Relationship Specialty Start Date End Date Armani Campa MD [address] [place] [address] PCP - General Family Medicine 12/25/21 documented as of this encounter
--- OUTSIDE RECORDS SUMMARY | 2025-01-12 10:50 | XMS_ITS | Clinical Summary ---
Author Organization [facility] Address [address] [place] [address] Care Team Providers Care Technical Business Systems Analyst Name Role Phone Armani Campa MD Primary Care Provider [phone] Kylee James APRN Unavailable [phone] Faustino Topete MD Unavailable [phone] Allergies No known active allergies Medications alendronate [...] (diarrhea). 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) 12/05/2024 Travel 11/29/2024 Refill [facility] [address] [place] [address] Marlin Guevara, PharmD 11/21/2024 Telephone [facility] [address] [place] [address] Noble Burrell, PharmD new start 11/21/2024 Refill [facility] [address] [place] [address] Faustino Topete MD Malignant neuroendocrine neoplasm (CMS/HCC) 11/15/2024 Orders Only [facility] [address] [place] [address] Faustino Topete MD 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) 11/13/2024 Telephone [facility] [address] [place] [address] Faustino Topete MD 11/10/2024 2:00 PM EDT Office Visit [facility] Mult[facility] [address] [place] [address] Faustino Topete MD 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); 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 0 12/02/2023 CAGE Questionnaire Score 0 024 Utilities Answer Date Recorded In the past 12 months has th [email or web address], gas, oil, or water company threatened to [...] Years (1 of 2 - PCV) 1964 [id number] Vaccine ( season) 2024 03/12/2024, 03/12/2023, 03/11/2022, [...] 1622(H) <93 ng/mL 11/14/2024 6:56 PM EDT [facility] ([facility]) Comment: Impaired renal or hepatic function or treatment with proton pump inhibitors may result in artifactual elevations of Chromogranin A. ADDITIONAL INFORMATION The testing method is a homogeneous time-resolved immunofluorescent assay manufactured by [employer] and performed on the Vinja Kryptor Compact Plus. Values obtained with different [...] examination and other findings. Test Performed by: [place] [id number] Rear Load Truck Driver: David Hawkins Ph.D.; CLIA# [id number] Blood Venous blood specimen / Unknown Venipuncture / Unknown 11/10/2024 4:02 PM EDT 11/10/2024 4:19 PM EDT us Faustino Topete MD LAB BLOOD ORDERABLES Final R esult [facility] ([facility]) * (ABNORMAL) 5-HIAA, Plasma (11/10/2024 4:02 PM EDT) Pathologist [facility] Fasting greater than or equal to 8 hours? Yes 11/23/2024 4:20 PM EDT [facility] 5-Hydroxyindole acetic Acid (HIAA), Plasma 58(H) <=22 ng/ml 11/23/2024 4:20 PM EDT [facility] ([facility]) Blood Venous blood specimen / Unknown Venipuncture / Unknown 11/10/2024 4:02 PM EDT 11/10/2024 4:12 PM EDT Narrative [facility] (BEAKER) - 11/23/2024 4:20 PM EDT This GCMS assay was developed and its performance characteristics determined by [facility]. It has not been cleared or approved by the FDA and such approval or clearance is not required at this time. Values obtained with different methods, different laboratories or with kits cannot be used interchangeably with the results on this report. The results cannot be interpreted as absolute evidence of the presence or absence of malignant disease. Performed By: [facility] [address] [place] [address]<lb> us Faustino Topete MD LAB BLOOD ORDERABLES Final R esult [facility] ([facility]) [facility] [address] [place] [address] * (ABNORMAL) CBC and differential (11/10/2024 4:02 PM EDT) Pathologist [facility] WBC Count 6.30 3.70 - 10.30 10*3/uL LAB HEMATOLOGY METHOD 11/10/2024 5:55 PM EDT [facility] RBC Count 4.67 3.90 - 5.20 10*6/uL LAB HEMATOLOGY METHOD 11/10/2024 5:55 PM EDT [facility] HGB 11.7 11.2 - 15.7 g/dL LAB HEMATOLOGY METHOD 11/10/2024 5:55 PM EDT [facility] HCT 37.8 34.0 - 45.0 % LAB HEMATOLOGY METHOD 11/10/2024 5:55 PM EDT [facility] Platelet Count 138(L) 155 - 369 10*3/uL LAB HEMATOLOGY METHOD 11/10/2024 5:55 PM EDT [facility] MCV 81 79 - 98 fL LAB HEMATOLOGY METHOD 11/10/2024 5:55 PM EDT [facility] MCH 25.1(L) 26.0 - 32.0 pg LAB HEMATOLOGY METHOD 11/10/2024 5:55 PM EDT [facility] MCHC 31.0 30.7 - 35.5 g/dL LAB HEMATOLOGY METHOD 11/10/2024 5:55 PM EDT [facility] RDW 16.1(H) 11.5 - 14.5 % LAB HEMATOLOGY METHOD 11/10/2024 5:55 PM EDT [facility] MPV LAB HEMATOLOGY METHOD 11/10/2024 5:55 PM EDT [facility] Comment:Not Measured nRBC 0.0 <=0.0 per 100 WBCs LAB HEMATOLOGY METHOD 11/10/2024 5:55 PM EDT [facility] Differential Type Automated LAB HEMATOLOGY METHOD 11/10/2024 5:55 PM EDT [facility] Neutrophils % 75 % LAB HEMATOLOGY METHOD 11/10/2024 5:55 PM EDT [facility] Lymphocytes % 15 % LAB HEMATOLOGY METHOD 11/10/2024 5:55 PM EDT [facility] Monocytes % 9 % LAB HEMATOLOGY METHOD 11/10/2024 5:55 PM EDT [facility] Eosinophils % 1 % LAB HEMATOLOGY METHOD 11/10/2024 5:55 PM EDT [facility] Basophils % 0 % LAB HEMATOLOGY METHOD 11/10/2024 5:55 PM EDT [facility] Immature Granulocytes % 0 % LAB HEMATOLOGY METHOD 11/10/2024 5:55 PM EDT [facility] Neutrophils Absolute 4.69 1.60 - 6.10 10*3/uL LAB HEMATOLOGY METHOD 11/10/2024 5:55 PM EDT [facility] Lymphocytes Absolute 0.95(L) 1.20 - 3.90 10*3/uL LAB HEMATOLOGY METHOD 11/10/2024 5:55 PM EDT [facility] Monocytes Absolute 0.54 0.30 - 0.90 10*3/uL LAB HEMATOLOGY METHOD 11/10/2024 5:55 PM EDT [facility] Eosinophils Absolute 0.08 0.00 - 0.50 10*3/uL LAB HEMATOLOGY METHOD 11/10/2024 5:55 PM EDT [facility] Basophils Absolute 0.02 0.00 - 0.10 10*3/uL LAB HEMATOLOGY METHOD 11/10/2024 5:55 PM EDT [facility] Immature Granulocytes Absolute 0.02 0.00 - 0.06 10*3/uL LAB HEMATOLOGY METHOD 11/10/2024 5:55 PM EDT [facility] Blood Venous blood specimen / Unknown Venipuncture / Unknown 11/10/2024 4:02 PM EDT 11/10/2024 4:27 PM EDT Narrative [facility] - 11/10/2024 5:55 PM EDT Therapeutic decision making should be based on absolute values, rather than percentages. Faustino Topete MD LAB BLOOD ORDERABLES Final R esult [facility] [address] [place] [address] * (ABNORMAL) Serotonin, Serum (11/10/2024 4:02 PM EDT) SEROTONIN 1449(H) 50 - 220 ng/mL 11/13/2024 6:02 AM EDT [facility] ([facility]) Serum Venous blood specimen / Unknown 11/10/2024 4:02 PM EDT 11/10/2024 4:18 PM EDT Narrative [facility]) - 11/13/2024 6:02 AM EDT TEST INFORMATION: Serotonin, Serum This test was developed and its performance characteristics determined by [facility]. It has not been cleared or approved by the [place] Food and Drug Administration. This test was performed in a CLIA certified laboratory and is intended for clinical purposes. Performed By: [facility] [address] [place] [id number] Financial Planning Adviser: Kurt Borges MD, PhD CLIA Number: [id number] Faustino Topete MD LAB BLOOD ORDERABLES Final R esult [facility] (BEAKER) [address] [place] [address] * (ABNORMAL) Magnesium (11/10/2024 4:02 PM EDT) Pathologist [facility] Magnesium, Plasma 1.5(L) 1.9 - 2.4 mg/dL 11/10/2024 4:51 PM EDT [facility] Blood Venous blood specimen / Unknown Venipuncture / Unknown 11/10/2024 4:02 PM EDT 11/10/2024 4:18 PM EDT us Faustino Topete MD LAB BLOOD ORDERABLES Final R esult [facility] [address] [place] [address] * (ABNORMAL) Comprehensive metabolic panel (11/10/2024 4:02 PM EDT) Pathologist [facility] Glucose, Plasma 92 74 - 99 mg/dL 11/10/2024 4:51 PM EDT [facility] BUN, Plasma 14 8 - 23 mg/dL 11/10/2024 4:51 PM EDT [facility] Creatinine, Plasma 0.57(L) 0.60 - 1.10 mg/dL 11/10/2024 4:51 PM EDT [facility] BUN/Creatinine Ratio 25 11/10/2024 4:51 PM EDT [facility] Sodium, Plasma 141 136 - 145 mmol/L 11/10/2024 4:51 PM EDT [facility] Potassium, Plasma 3.4(L) 3.6 - 4.9 mmol/L 11/10/2024 4:51 PM EDT [facility] Chloride, Plasma 106 97 - 107 mmol/L 11/10/2024 4:51 PM EDT [facility] CO2, Plasma 21(L) 22 - 29 mmol/L 11/10/2024 4:51 PM EDT [facility] Anion Gap 14 6 - 16 mmol/L 11/10/2024 4:51 PM EDT [facility] Total Calcium, Plasma 8.6(L) 8.9 - 10.2 mg/dL 11/10/2024 4:51 PM EDT [facility] Total Protein 7.4 6.3 - 7.9 g/dL 11/10/2024 4:51 PM EDT [facility] Albumin, Plasma 3.8 3.5 - 5.2 g/dL 11/10/2024 4:51 PM EDT [facility] AST, Plasma 36(H) 10 - 35 U/L 11/10/2024 4:51 PM EDT [facility] ALT, Plasma 20 10 - 35 U/L 11/10/2024 4:51 PM EDT [facility] Alkaline Phosphatase, Plasma 98 46 - 142 U/L 11/10/2024 4:51 PM EDT [facility] Total Bilirubin, Plasma 0.3 0.2 - 1.1 mg/dL 11/10/2024 4:51 PM EDT [facility] eGFRcr 91.4 mL/min/1.7 3m*2 11/10/2024 4:51 PM EDT [facility] Comment:Reported eGFRcr in m L/min/1.73m2 is based the CKD-EPI 2020 equation that does not use a race coefficient. Blood Venous blood specimen / Unknown Venipuncture / Unknown 11/10/2024 4:02 PM EDT 11/10/2024 4:18 PM EDT us Faustino Topete MD LAB BLOOD ORDERABLES Final R esult [facility] [address] [place] [address] from Last 3 Months Insurance [employer] MEDICARE [...] Patient has decision-making capacity? Yes Care Teams Technical Business Systems Analyst Relationship Specialty Start Date End Date Armani Campa MD [address] [place] [address] PCP - General 10/19/22 Kylee Jmaes APRN [address] [phone] Nurse Practitioner Medical Oncology 03/30/23 Faustino Topete MD [address] [place] Rosemarie Cheung [facility] [address] [place] [address] Consulting Physician Medical Oncology 12/01/23
--- OUTSIDE RECORDS SUMMARY | 2025-01-12 10:50 | XMS_ITS | Encounter Summary ---
Author Organization [facility] Address [address] [place] [address] Care Team Providers Care Lcsw Name Role Phone Armani Campa MD Primary Care Provider + Encounter Details Date Type Department Care Team (Late st Contact Info) Description 08/15/2024 Results Follow-Up [facility] [address] [address] Armani Campa MD [address] [place] [address] Social History Tobacco Use Types [...] Description 02/15/2025 3:15 PM EDT Office Visit [facility] [address] [place] [address] Armani Campa MD [address] [facility] [place] [address] documented as of this encounter Visit Diagnoses Not on filedocumented in this encounter Additional Health Concerns Assessment Noted Time PHQ-2 Depression Total Score: 1 02/15/20 24 10:24 AM EDT documented as of this encounter Care Teams Lcsw Relationship Specialty Start Date End Date Armani Campa MD [address] [place] [address] PCP - General Family Medicine 12/25/21 documented as of this encounter
--- OUTSIDE RECORDS SUMMARY | 2025-01-12 10:50 | XMS_ITS | Encounter Summary ---
Author Organization [facility] Address [address] [place] [address] Care Team Providers Care Urban Planning Professor Name Role Phone Armani Campa MD Primary Care Provider [phone] Kylee James APRN Unavailable [phone] Faustino Topete MD Unavailable [phone] Reason for Visit * Reason Onset Date Comments new start 11/21/2024 Encounter Details Date Type Department Care Team (Late st Contact Info) Description 11/21/2024 Telephone [facility] [address] [place] [phone] Noble Burrell, PharmD Social History Tobacco Use [...] drink first t volodymyr in the morning (EYE-LAUNDRY MANAGER) to steady your nerves or to [...] documented as of this encounter Care Teams Urban Planning Professor Relationship Specialty Start Date End Date Armani Campa MD [address] [place] [address] PCP - General 10/19/22 Kylee James APRN [address] [address] Nurse Practitioner Medical Oncology 03/30/23 Faustino Topete MD [address] [place] Rosemarie Cheung [address] [address] Consulting Physician Medical Oncology 12/01/23 documented as of this encounter
--- OUTSIDE RECORDS SUMMARY | 2025-01-12 10:50 | XMS_ITS | Encounter Summary ---
Author Organization [facility] Address [address] [place] [address] Care Team Providers Care Tint Layer Name Role Phone Armani Campa MD Primary Care Provider [phone] Kylee James JACK PRIZER Unavailable [phone] Faustino Topete MD Unavailable [phone] Reason for Visit * Reason Onset Date Comments Med Refill 11/21/2024 Encounter Details Date Type Department Care Team (Late st Contact Info) Description 11/21/2024 Refill [facility] [address] [place] [address] Faustino Topete MD [address] [address] Malignant neuroendocrine neoplasm (CMS/HCC) Social [...] drink first t volodymyr in the morning (EYE-FORGING PRESS SETTER UP) to steady your nerves or to get [...] documented as of this encounter Care Teams Tint Layer Relationship Specialty Start Date End Date Armani Campa MD [address] [place] [address] PCP - General 10/19/22 Kylee James APRN [address] Cheung [address] [address] Nurse Practitioner Medical Oncology 03/30/23 Faustino Topete MD [address] [address] Consulting Physician Medical Oncology 12/01/23 documented as of this encounter
--- OUTSIDE RECORDS SUMMARY | 2025-01-12 10:50 | XMS_ITS | Encounter Summary ---
Author Organization [facility] Address [address] [place] [address] Care Team Providers Care Party Chief Name Role Phone Armani Campa MD Primary Care Provider [phone] Kylee James APRN Unavailable [phone] Faustino Topete MD Unavailable [phone] Encounter Details Date Type Department Care Team [...] first t volodymyr in the morning (EYE-AUTO TRANSMISSION SPECIALIST) to steady your nerves or to get rid of a hangover? 0 12/02/2023 CAGE Questionnaire Score 0 024 Utilities Answer Date Recorded In the past 12 months has th e [employer], gas, oil, or water [employer] threatened to shut off services in your [...] documented as of this encounter Care Teams Party Chief Relationship Specialty Start Date End Date Armani Campa MD [address] [place] [address] PCP - General 10/19/22 Kylee James APRN [address] [address] Nurse Practitioner Medical Oncology 03/30/23 Faustino Topete MD [address] [address] Consulting Physician Medical Oncology 12/01/23 documented as of this encounter
--- OUTSIDE RECORDS SUMMARY | 2025-01-12 10:50 | XMS_ITS | Encounter Summary ---
Author Organization [facility] Address [address] [place] [address] Care Team Providers Care Resource Manager Name Role Phone Armani Campa MD Primary Care Provider [phone] Kylee James APRN Unavailable [phone] Faustino Ruano MD Unavailable [phone] Encounter Details Date Type Department Care Team (Late st Contact Info) Description 11/13/2024 Telephone [facility] [address] [place] [address] Faustino Ruano MD 800 [facility] [address] [place] [address] Social History Tobacco Use Types [...] drink first t volodymyr in the morning (EYE-V BELT MOLD ASSEMBLER AND CURER) to steady your nerves or to get [...] was left IVF order sent in to [facility] and noted dr ruano's message on [...] IV fluids in her hometown [facility]- Can you Melody back? Best contact number and optimal time of day to reach caller: [phone] Note: Please do not reply to this message. Follow-up communication and further actions as a result of this message need to be communicated with the patient directly, if the patient is not active onMyChart. If the patient is active on MyChart, they will receive notification of the communication/outcome via [employer]. documented in this encounter Plan of Treatment [...] documented as of this encounter Care Teams Resource Manager Relationship Specialty Start Date End Date Armani Campa MD [address] [place] [address] PCP - General 10/19/22 Kylee James APRN [address] Rosemarie Cheung [address] [address] Nurse Practitioner Medical Oncology 03/30/23 Faustino Ruano MD [address] Rosemarie Cheung [address] [address] Consulting Physician Medical Oncology 12/01/23 documented as of this encounter
--- OUTSIDE RECORDS SUMMARY | 2025-01-12 10:50 | XMS_ITS | Encounter Summary ---
Author Organization [facility] Address [address] [place] [address] Care Team Providers Care Manager Maintenance Name Role Phone Armani Campa MD Primary Care Provider [phone] Kylee James APRN Unavailable [phone] Faustino Topete MD Unavailable [phone] Encounter Details Date Type Department Care Team (Late st Contact Info) Description 11/29/2024 Refill [facility] [address] [place] [address] Marlin Guevara, PharmD [address] [phone] Social History Tobacco Use Types Packs/Day Years [...] drink first t volodymyr in the morning (EYE-MACHINE FORMER) to steady your nerves or to get [...] as of this encounter Care Teams Manager Maintenance Relationship Specialty Start Date End Date Armani Campa MD [address] [place] [address] PCP - General 10/19/22 Kylee James APRN [address] [address] Nurse Practitioner Medical Oncology 03/30/23 Faustino Topete MD [address] [address] Consulting Physician Medical Oncology 12/01/23 documented as of this encounter
--- OUTSIDE RECORDS SUMMARY | 2025-01-12 10:50 | XMS_ITS | Encounter Summary ---
Author Organization [facility] Address [address] [place] [address] Care Team Providers Care Director Of Elementary Education Name Role Phone Armani Campa MD Primary Care Provider + Encounter Details Date Type Department Care Team (Late st Contact Info) Description 10/11/2024 Results Follow-Up [facility] [address] [place] [address] Armani Campa MD [address] [place] [address] Social History Tobacco Use Types [...] [facility] [address] [place] [address] Armani Campa MD [address] [facility] [place] [address] documented as of this encounter Visit Diagnoses Not on filedocumented in this encounter Additional Health Concerns Assessment Noted Time PHQ-2 Depression Total Score: 1 02/15/20 24 10:24 AM EDT documented as of this encounter Care Teams Director Of Elementary Education Relationship Specialty Start Date End Date Armani Campa MD [address] [place] [address] PCP - General Family Medicine 12/25/21 documented as of this encounter
--- OUTSIDE RECORDS SUMMARY | 2025-01-12 10:50 | XMS_ITS | Clinical Summary ---
Author Organization [facility] Address [address] [place] [address] Care Team Providers Care Menagerie Caretaker Name Role Phone Armani Campa MD Primary [...] fracture 12/25/2021 Overactive bladder 12/25/2021 Hypokalemia 12/25/2021 assisted (current) use of n on-steroidal anti-inflammatories (nsaid) 12/25/2021 Encounters Date Type Department Care Team Description 11/07/2024 Telephone [facility] [address] [place] [address] Armani Campa MD MEDICATION ISSUE 11/06/2024 Telephone [facility] [address] [place] [address] Armani Campa MD Med Management 11/06/2024 Refill [facility] [address] [place] [address] Armani Campa MD 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 Telephone [facility] [address] [facility] [place] [address] Armani Campa MD New Med Request from Last 3 Months Immunizations Immunization Administration [...] Description 02/15/2025 3:15 PM EDT Office Visit [facility] [address] [place] [address] Armani Campa MD [address] [place] [address] Health Maintenance Due Date Last Done Comments [...] Procedure Name Priority Date/Time Associated Diagnosis Comments SCANNED - DEXA 01/28/2022 from Last 3 Months or Most Recently Relevant to Health Maintenance Results * SCANNED - DEXA (01/28/2022) Anatomical Region Laterality Modality Other Armani Campa MD CHART REVIEW TABS Fin al Result from Last 3 Months or Most Recently Relevant to Health Maintenance Insurance [employer] Advance Directives Documents on File Type Date Recorded 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
[2025-01-12 10:55] VITALS: BP 124/66; PULSE 71; RESP 18; TEMP 36.6; O2SAT 98
[2025-01-12 12:20] VITALS: BP 143/75; PULSE 78; RESP 18; O2SAT 98
== END 2025-01-12 12:20 | disposition home or self-care (01) ==
LOC: INF 10:46
PROVIDERS: PCP Family Medicine; Visit Provider Internal Medicine Hematology & Oncology
DX: C7B.8 Other secondary neuroendocrine tumors (principal)
CPT/HCPCS: 96360; J7030

== ENCOUNTER 2025-01-19 10:45 | Outpatient (CLI) | payer MEDICARE, SELFPAY ==
--- OUTSIDE RECORDS SUMMARY | 2024-12-05 10:30 | XMS_ITS | Encounter Summary ---
Author Organization [facility] Address [address] [place] [address] Care Team Providers Care Education Officer Name Role Phone Armani Campa MD Primary Care Provider Kylee James JACQUARD LACE WEAVER Unavailable [phone] Faustino Topete MD Unavailable [phone] Reason for Visit * Reason Comments Routine Follow-up Encounter Details Date Type Department Care Team (Late st Contact Info) Description 12/05/2024 10:30 AM EDT Office Visit [facility] Multidisciplinary Oncology Clinic [address] [place] [address] Shannon Aguero, JACQUARD LACE WEAVER 800 [facility] [address] [place] [address] Metastatic malignant neuroendocrine tumor to [...] No 12/01/2023 Housing Stability Vital Sign Answer Nathony e Recorded In the last 12 months, [...] Have you had a drink first t volodmyyr in the morning (EYE-GANG HEMSTITCHING MACHINE OPERATOR) to steady your nerves or [...] prn. She continues to get IVFs at [facility] once a week. She is staking [...] to get IVF's once a week at [facility] in [place] - She prefers not to get scanned at this time - Continue KCL 20 meq daily Telehealth Statement Patient Verification Patient identity has been confirmed using name and date of ? Yes Authorizations and Agreements/Telemedicine Consent sent and consent confirmed? Yes Patient Location: Home/Other Patient confirms they are physically located in [place]? Yes If the patient is not physically located in [place], the provider has confirmed with [facility] thatthe provider is authorized to provide services in patient's stated location? N/A Provider Location: [facility] facility Audio and video or audio [...] in patients with cancer. Shannon Aguero, MERCEDES, JACQUARD LACE WEAVER, WORD PROCESSING MACHINE OPERATOR-C Division of Medical Oncology documented in [...] documented as of this encounter Care Teams Education Officer Relationship Specialty Start Date End Date Armani Campa MD [address] [place] [address] PCP - General 10/19/22 Kylee James APRN [address] Rosemarie Cheung [address] [address] Nurse Practitioner Medical Oncology 03/30/23 Faustino Topete MD [address] [facility] [address] [place] [address] Consulting Physician Medical Oncology 12/01/23 documented as of this encounter
--- OUTSIDE RECORDS SUMMARY | 2025-01-19 10:47 | XMS_ITS ---
Author Name Auto Generated, Auto Generated Organization [facility] Address [address] [place] [address] Phone [phone] Care Team Providers Care Stock Digger Name Role Phone Altagraciajane López Unavailable [phone] Lucinda Schumacher Unavailable Armani Campa Unavailable [phone] Functional Status No Results Mental Status [...] Vital Sign Measurement Date Systolic blood pressure 126 mm[Hg] WedApr 25 06:45:00 EST 2023 Diastolic blood pressure 74 mm[Hg] WedApr 25 06:45:00 EST 2023 Respiratory rate 16 /min WedApr 25 06:4 5:00 EST 2023 Oxygen saturation in Arteria l blood by Pulse oximetry 97 % WedApr 25 06:45:00 EST 2023 Heart rate 88 /min WedApr 25 06:45 :00 EST 2023 Systolic blood pressure 140 mm[Hg] WedMay [...] 07:06 :00 EDT 2023 Systolic blood pressure 138 mm[Hg] WedSep 14 10:16:00 EDT 2024 Diastolic blood pressure 70 mm[Hg] Wed 17 10:16:00 EDT 2024 Respiratory rate 20 /min WedSep 14 10:1 6:00 EDT 2024 Heart rate 80 /min WedSep 14 10:16 :00 EDT 2024 Systolic blood pressure 120 mm[Hg] WedApr 17 06:30:00 EST 2023 Diastolic blood pressure 78 mm[Hg] WedApr 17 06:30:00 EST 2023 Respiratory rate 16 /min WedApr 17 06:3 0:00 EST 2023 Heart rate 70 /min WedApr 17 06:30 :00 EST 2023 Systolic blood pressure 130 mm[Hg] WedMar 28 09:30:00 EDT 2023 Diastolic blood pressure 80 mm[Hg] WedMar 28 09:30:00 EDT 2023 Respiratory rate 16 /min WedMar 28 09:3 0:00 EDT 2023 Systolic blood pressure 160 mm[Hg] WedJun 14 08:30:00 EST 2024 Diastolic blood pressure 90 mm[Hg] WedJun 14 08:30:00 EST 2024 Respiratory rate 20 /min WedJun 14 08:3 0:00 EST 2024 Heart rate 76 /min WedJun 14 08:30 :00 EST 2024 Systolic blood pressure 162 mm[Hg] WedFeb 01 [...] 07:15 :00 EDT 2024 Systolic blood pressure 138 [...] 06 10:24 :00 EDT 2024 Body weight 113 [lb_av] WedAug 02 07:11 :00 EST 2024 Systolic blood pressure 128 mm[Hg] WedAug 02 07:11:00 EST 2024 Diastolic blood pressure 76 mm[Hg] WedAug 02 07:11:00 EST 2024 Respiratory rate 18 /min WedAug 02 07:1 1:00 EST 2024 Heart rate 70 /min WedAug 02 07:11 :00 EST 2024 Body weight 113 [lb_av] WedAug 07 08:00 :00 EDT 2024 Systolic blood pressure 140 mm[Hg] WedAug 07 08:00:00 EDT 2024 Diastolic blood pressure 90 mm[Hg] WedAug 07 08:00:00 EDT 2024 Respiratory rate 20 /min WedAug 07 08:0 0:00 EDT 2024 Heart rate 96 /min WedAug 07 08:00 :00 EDT 2024 Systolic blood pressure 136 mm[Hg] Wed Feb 07:30:00 EST 2024 Diastolic blood pressure 80 [...] 06:35 :00 EDT 2023 Systolic blood pressure 148 mm[Hg] WedFeb 15 07:15:00 EDT 2023 Diastolic blood pressure 88 mm[Hg] WedFeb 15 07:15:00 EDT 2023 Respiratory rate 16 /min WedFeb 15 07:1 5:00 EDT 2023 Body weight 113.4 [lb_av] WedJun [...] 08:36 :00 EST 2023 Systolic blood pressure 128 mm[Hg] WedJun 23 06:40:00 EST 2024 Diastolic blood pressure 80 mm[Hg] WedJun 23 06:40:00 EST 2024 Respiratory rate 16 /min WedJun 23 06:4 0:00 EST 2024 Heart rate 98 /min WedJun 23 06:40 :00 EST 2024 Body weight 112 [lb_av] WedMay 12 07:00 :00 EST 2023 Systolic blood pressure 160 mm[Hg] WedMay 12 07:00:00 EST 2023 Diastolic blood pressure 84 mm[Hg] WedMay 12 07:00:00 EST 2023 Respiratory rate 20 /min WedMay 12 07:0 0:00 EST 2023 Heart rate 76 /min WedMay 12 07:00 :00 EST 2023 Systolic blood pressure 126 [...] 05:35 :00 EST 2023 Systolic blood pressure 110 mm[Hg] WedMay 01 09:36:00 EST 2023 Diastolic blood pressure 68 mm[Hg] WedMay 01 09:36:00 EST 2023 Respiratory rate 16 /min WedMay 01 09:3 6:00 EST 2023 Heart rate 97 /min WedMay 01 09:36 :00 EST 2023 Systolic blood pressure 180 mm[Hg] Ailyn Sep 09:30:00 EDT 2023 Diastolic blood pressure 90 mm[Hg] Ailyn Sep 09:30:00 EDT 2023 Respiratory rate 18 /min Ailyn Sep 09:3 0:00 EDT 2023 Systolic blood pressure 140 mm[Hg] Fri Sep 05:26:00 EDT 2023 Diastolic blood pressure 80 mm[Hg] Wed Sep 05:26:00 EDT 2023 Respiratory rate 16 /min Wed Sep 05:2 6:00 EDT 2023 Heart rate 78 /min Wed Sep 05:26 :00 EDT 2023 Body weight 113.4 [lb_av] Ailyn Aug 17 11:30 :00 EDT 2024 Systolic blood pressure 132 mm[Hg] [facility] Aug 17 11:30:00 EDT 2024 Diastolic blood pressure 84 mm[Hg] Ailyn Aug 17 11:30:00 EDT 2024 Respiratory rate 20 /min Ailyn Aug 17 11:3 0:00 EDT 2024 Heart rate 88 /min [facility] Aug 17 11:30 :00 EDT 2024 Body weight 114 [lb_av] WedJul 12 [...] 14 09:15:00 EDT 2023 Systolic blood pressure 130 mm[Hg] WedMar 06 09:20:00 EDT 2023 Diastolic blood pressure 90 mm[Hg] WedMar 06 09:20:00 EDT 2023 Respiratory rate 16 /min WedMar 06 09:2 0:00 EDT 4 Heart rate 70 /min WedMar 06 09:20 :00 EDT 2023 Systolic blood pressure 130 mm[Hg] WedMar 01 09:05:00 EDT 2023 Diastolic blood pressure 80 mm[Hg] WedMar 01 09:05:00 EDT 2023 Respiratory rate 16 /min WedMar 01 09:0 5:00 EDT 2023 Heart rate 70 /min WedMar 01 09:05 :00 EDT 2023 Systolic blood pressure 132 mm[Hg] WedJun 30 11:00:00 EST 2024 Diastolic blood pressure 76 mm[Hg] WedJun 30 11:00:00 EST 2024 Respiratory rate 20 /min WedJun 30 11:0 0:00 EST 2024 Heart rate 76 /min WedJun 30 11:00 :00 EST 2024 Body weight 113 [lb_av] WedSep 27 11:50 :00 EDT 202 Systolic blood pressure 112 mm[Hg] WedSep 27 11:50:00 EDT 2024 Diastolic blood pressure 60 mm[Hg] WedSep 27 11:50:00 EDT 202 Respiratory rate 20 /min WedSep 27 11:5 0:00 EDT 202 Heart rate 84 /min WedSep 27 11:50 :00 EDT 202 Systolic blood pressure 140 mm[Hg] Tue Sep 10 07:02:00 EDT 2023 Diastolic blood pressure 80 mm[Hg] Tue Sep 10 07:02:00 EDT 2023 Respiratory rate 18 /min e Sep 10 07:0 2:00 EDT 2023 Heart rate 72 /min e Sep 07:02 :00 EDT 202 Systolic blood pressure 140 mm[Hg] WedApr 05 08:00:00 EST 2023 Diastolic blood pressure 90 mm[Hg] WedApr 05 08:00:00 EST 2023 Respiratory rate 16 /min WedApr 05 08:0 0:00 EST 2023 Heart rate 67 /min WedApr 05 08:00 :00 EST 2023 Systolic blood pressure 130 mm[Hg] WedJul 21 06:04:00 EST 202 Diastolic blood pressure 80 mm[Hg] Wedb 06:04:00 EST 202 Respiratory rate 16 /min Wedb 06:0 4:00 EST 202 Heart rate 76 /min WedJul 21 06:04 :00 EST 202 Reason for Referral
--- OUTSIDE RECORDS SUMMARY | 2025-01-19 10:47 | XMS_ITS ---
Author Name Auto Generated, Auto Generated Organization [facility] Address [address] [address] Phone [phone] Care Team Providers Care Manager Clinical Services Name Role Phone Altagraciajane López Unavailable [phone] Lucinda Schumacher Unavailable Armani Campa Unavailable Functional [...] Problems Vital Signs Vital Sign Measurement Date Body weight 113 [lb_av] WedSep 27 11:50 :00 EDT 2024 Systolic blood pressure 112 mm[Hg] WedSep 27 11:50:00 EDT 2024 Diastolic blood pressure 60 mm[Hg] WedSep 27 11:50:00 EDT 2024 Respiratory rate 20 /min WedSep 27 11:5 0:00 EDT 2024 Heart rate 84 /min WedSep 27 11:50 :00 EDT 2024 Body weight 113.4 [lb_av] Ailyn Aug 17 11:30 :00 EDT 2024 Systolic blood pressure 132 mm[Hg] Ailyn Aug 17 11:30:00 EDT 2024 Diastolic blood pressure 84 mm[Hg] Ailyn Aug 17 11:30:00 EDT 2024 Respiratory rate 20 /min Ailyn Aug 17 11:3 0:00 EDT 2024 Heart rate 88 /min [facility] Aug 17 11:30 :00 EDT 2024 Body weight 113.4 [lb_av] WedJun 09 08:00 :00 EST 2024 Systolic blood pressure 150 mm[Hg] WedJun 09 08:00:00 EST 2024 Diastolic blood pressure 90 mm[Hg] WedJun 09 08:00:00 EST 2024 Respiratory rate 20 /min WedJun 09 08:0 0:00 EST 2024 Heart rate 80 /min WedJun 09 08:00 :00 EST 2024 Systolic blood pressure 110 mm[Hg] WedMay 01 09:36:00 EST 2023 Diastolic blood pressure 68 mm[Hg] WedMay 01 09:36:00 EST 2023 Respiratory rate 16 /min WedMay 01 09:3 6:00 EST 2023 Heart rate 97 /min WedMay 01 09:36 :00 EST 2023 Body weight 114 [lb_av] Wed Feb 09:45 :00 EST 2024 Systolic blood pressure 150 mm[Hg] Wed Feb 09:45:00 EST 2024 Diastolic blood pressure 80 mm[Hg] Wed Feb 09:45:00 EST 2024 Respiratory rate 20 /min Wedb 09:4 5:00 EST 2024 Heart rate 80 /min Wedb 09:45 :00 EST 2024 Systolic blood pressure 140 mm[Hg] WedSep 06 10:24:00 EDT 202 Diastolic blood pressure 80 mm[Hg] WedSep 06 10:24:00 EDT 2024 Respiratory rate 20 /min WedSep 06 10:2 4:00 EDT 202 Heart rate 84 /min WedSep 06 10:24 [...] 08:30 :00 EST 2023 Systolic blood pressure 138 mm[Hg] WedJan [...] /min WedMar 22 07:06 :00 EDT 2023 Body weight 113 [lb_av] [...] 07:30 :00 EST 2024 Systolic blood pressure 180 mm[Hg] Ailyn Sep 09:30:00 EDT 2023 Diastolic blood pressure 90 mm[Hg] Ailyn Sep 09:30:00 EDT 2023 Respiratory rate 18 /min Ailyn Sep 09:3 0:00 EDT 2023 Body weight 113 [lb_av] WedAug 02 07:11 :00 EST 2024 Systolic blood pressure 128 mm[Hg] WedAug 02 07:11:00 EST 2024 Diastolic blood pressure 76 mm[Hg] WedAug 02 07:11:00 EST 2024 Respiratory rate 18 /min WedAug 02 07:1 1:00 EST 2024 Heart rate 70 /min WedAug 02 07:11 :00 EST 2024 Systolic blood pressure 126 [...] 06:04 :00 EST 2024 Systolic blood pressure 126 mm[Hg] WedAug 22 09:15:00 EDT 2024 Diastolic blood pressure 80 mm[Hg] WedAug 22 09:15:00 EDT 2024 Respiratory rate 18 /min WedAug 22 09:1 5:00 EDT 2024 Heart rate 76 /min WedAug 22 09:15 :00 EDT 2024 Systolic blood pressure 140 mm[Hg] Tue Sep 10 07:02:00 EDT 2023 Diastolic blood pressure 80 mm[Hg] e Sep 10 07:02:00 EDT 2023 Respiratory rate 18 /min e Sep 10 07:0 2:00 EDT 2023 Heart rate 72 /min e Sep 10 07:02 :00 EDT 2023 Systolic blood pressure 130 [...] 06:30 :00 EST 2023 Systolic blood pressure 140 mm[Hg] WedApr 05 08:00:00 EST 2023 Diastolic blood pressure 90 mm[Hg] WedApr 05 08:00:00 EST 2023 Respiratory rate 16 /min WedApr 05 08:0 0:00 EST 2023 Heart rate 67 /min WedApr 05 08:00 :00 EST 2023 Systolic blood pressure 148 [...] EST 2024 Systolic blood pressure 140 mm[Hg] Wed Sep 05:26:00 EDT 2023 Diastolic blood pressure 80 mm[Hg] Wed Sep 05:26:00 EDT 2023 Respiratory rate 16 /min Wed Sep 05:2 6:00 EDT 2023 Heart rate 78 /min Wed Sep 05:26 :00 EDT 2023 Systolic blood pressure 130 mm[Hg] WedOctober 04 08:15:00 EDT 2024 Diastolic blood pressure 70 mm[Hg] WedOctober 04 08:15:00 EDT 2024 Respiratory rate 20 /min WedOctober 04 08:1 5:00 EDT 2024 Heart rate 80 /min WedOctober 04 08:15 :00 EDT 2024 Systolic blood pressure 138 mm[Hg] Ailyn Apr 10:16:00 EDT 2024 Diastolic blood pressure 70 mm[Hg] Ailyn Apr 17 10:16:00 EDT 2024 Respiratory rate 20 /min Ailyn Apr 17 10:1 6:00 EDT 202 Heart rate 80 /min Ailyn Apr 10:16 :00 EDT 202 Systolic blood pressure 130 mm[Hg] WedMar 06 09:20:00 EDT 2023 Diastolic blood pressure 90 mm[Hg] WedMar 06 09:20:00 EDT 2023 Respiratory rate 16 /min WedMar 06 09:2 0:00 EDT 202 Heart rate 70 /min WedMar 06 09:20 :00 EDT 202 Systolic blood pressure 128 mm[Hg] WedJun 23 [...] 09:3 0:00 EDT 2023 Systolic blood pressure 132 mm[Hg] WedJun 30 11:00:00 EST 202 Diastolic blood pressure 76 mm[Hg] WedJun 30 [...] /min WedMar 01 09:05 :00 EDT 2023 Reason for Referral
--- OUTSIDE RECORDS SUMMARY | 2025-01-19 10:58 | XMS_ITS | Encounter Summary ---
Author Organization [facility] Address [address] [place] [address] Care Team Providers Care Parts Counterperson Name Role Phone Armani Campa MD Primary Care Provider + Reason for Visit * Reason Comments Med Refill Encounter Details Date Type Department Care Team (Late st Contact Info) Description 04/01/2023 Refill [facility] [address] [place] [address] Armani Campa MD [address] [place] [address] Primary osteoarthritis of right knee [...] CENTER FAMILY [facility] [address] [place] [id number] Armani Campa MD [address] [place] [address] documented as of this encounter Visit Diagnoses Diagnosis Primary osteoarthritis of right knee documented in this encounter Care Teams Parts Counterperson Relationship Specialty Start Date End Date Armani Campa MD [address] [place] [address] PCP - General Family Medicine 12/25/21 documented as of this encounter
--- OUTSIDE RECORDS SUMMARY | 2025-01-19 10:58 | XMS_ITS | Encounter Summary ---
Author Organization [facility] Address [address] [place] [address] Care Team Providers Care Cradle Placer Name Role Phone Armani Campa MD Primary Care Provider [phone] Kylee James HAND BINDER STRIPPER Unavailable [phone] Faustino Topete MD Unavailable [phone] Reason for Visit * Reason Onset Date Comments Med Refill 11/21/2024 Encounter Details Date Type Department Care Team (Late st Contact Info) Description 11/21/2024 Refill [facility] [address] [place] [address] Faustino Topete MD [address] [address] Malignant neuroendocrine neoplasm (CMS/HCC) Social [...] place to sleep or slept in a skilled nursing (including now)? No 12/01/2023 CAGE ASSESSMENT Answer [...] drink first t volodymyr in the morning (EYE-AUTOMATION TEST ENGINEER) to steady your nerves or to [...] documented as of this encounter Care Teams Cradle Placer Relationship Specialty Start Date End Date Armani Campa MD [address] [place] [address] PCP - General 10/19/22 Kylee James APRN [address] [address] Nurse Practitioner Medical Oncology 03/30/23 Faustino Topete MD [address] [address] Consulting Physician Medical Oncology 12/01/23 documented as of this encounter
--- OUTSIDE RECORDS SUMMARY | 2025-01-19 10:58 | XMS_ITS ---
Author Organization [facility] Address [address] [place] [address] Care Team Providers Care Pie Bakery Laborer Name Role Phone Armani Campa MD Primary Care Provider [phone] Kylee James APRN Unavailable [phone] Faustino Topete MD Unavailable [phone] Active Problems Problem Noted Date Diagnosed Date [...]
--- OUTSIDE RECORDS SUMMARY | 2025-01-19 10:58 | XMS_ITS | Encounter Summary ---
Author Organization [facility] Address [address] [place] [address] Care Team Providers Care Collections Officer Name Role Phone Armani Campa MD Primary Care Provider [phone] Kylee James APRN Unavailable [phone] Faustino Ruano MD Unavailable [phone] Encounter Details Date Type Department Care Team (Late st Contact Info) Description 11/13/2024 Telephone [facility] [address] [place] [address] Faustino Ruano MD 800 [facility] [address] [place] [address] Social History Tobacco Use Types [...] first t volodymyr in the morning (EYE-HEAD TELLER) to steady your nerves or to get [...] was left IVF order sent in to [facility] and noted dr ruano's message on the serotonin level * Telephone Encounter - Leticia Bowen - 11/13/2024 12:18 PM EDT Melody not listed on pts preferred contacts, no answer from pt. * Telephone Encounter - Fransisca Jasso - 11/13/2024 11:39 AM EDT Patient Phone Message Reason for Call: Melody was worried about her serotonin level and [facility]- Can you Melody back? Best contact number and optimal time of day to reach caller: [phone] Note: Please do not reply to this message. Follow-up communication and further actions as a result of this message need to be communicated with the patient directly, if the patient is not active onMyChart. If the patient is active on MyChart, they will receive notification of the communication/outcome via [employer]. documented in this encounter Plan of Treatment [...] documented as of this encounter Care Teams Collections Officer Relationship Specialty Start Date End Date Armani Campa MD [address] [place] [address] PCP - General 10/19/22 Kylee James APRN [address] Rosemarie Cheung [address] [address] Nurse Practitioner Medical Oncology 03/30/23 Faustino Ruano MD [address] Rosemarie Chueng [address] [address] Consulting Physician Medical Oncology 12/01/23 documented as of this encounter
--- OUTSIDE RECORDS SUMMARY | 2025-01-19 10:58 | XMS_ITS | Encounter Summary ---
Author Organization [facility] Address [address] [place] [address] Care Team Providers Care Lathe Scalper Operator Name Role Phone Armani Campa MD Primary Care Provider [phone] Kylee James APRN Unavailable [phone] Faustino Topete MD Unavailable [phone] Encounter Details Date Type Department Care Team (Late st Contact Info) Description 11/29/2024 Refill [facility] [address] [place] [address] Marlin Guevara, PharmD [address] [phone] Social History Tobacco Use Types Packs/Day Years [...] drink first t volodymyr in the morning (EYE-MINER HELPER) to steady your nerves or to [...] documented as of this encounter Care Teams Lathe Scalper Operator Relationship Specialty Start Date End Date Armani Campa MD [address] [place] [address] PCP - General 10/19/22 Kylee James APRN [address] [address] Nurse Practitioner Medical Oncology 03/30/23 Faustino Topete MD [address] [address] Consulting Physician Medical Oncology 12/01/23 documented as of this encounter
--- OUTSIDE RECORDS SUMMARY | 2025-01-19 10:58 | XMS_ITS | Encounter Summary ---
Author Organization [facility] Address [address] [place] [address] Care Team Providers Care Candle Molder Name Role Phone Armani Campa MD Primary Care Provider + Encounter Details Date Type Department Care Team (Late st Contact Info) Description 08/15/2024 Results Follow-Up [facility] [address] [place] [address] Armani Campa MD [address] [place] [address] Social History Tobacco Use Types [...] PM EDT Office Visit [facility] [address] [place] [address] Armani Campa MD [address] [facility] [place] [address] documented as of this encounter Visit Diagnoses Not on filedocumented in this encounter Additional Health Concerns Assessment Noted Time PHQ-2 Depression Total Score: 1 02/15/20 24 10:24 AM EDT documented as of this encounter Care Teams Candle Molder Relationship Specialty Start Date End Date Armani Campa MD [address] [place] [address] PCP - General Family Medicine 12/25/21 documented as of this encounter
--- OUTSIDE RECORDS SUMMARY | 2025-01-19 10:58 | XMS_ITS | Encounter Summary ---
Author Organization [facility] Address [address] [place] [address] Care Team Providers Care Public Relations Analyst Name Role Phone Armani Campa MD Primary Care Provider [phone] Kylee James APRN Unavailable [phone] Faustino Topete MD Unavailable Encounter Details Date Type Department Care Team (Late st Contact Info) Description 01/15/2025 Telephone [facility] [address] [place] [address] Daxa Schultz, box blank machine operator helper Social History Tobacco Use Types Packs/Day Years [...] drink first t volodymyr in the morning (EYE-COMMUNITY HEALTH REPRESENTATIVE) to steady your nerves or to [...] documented as of this encounter Care Teams Public Relations Analyst Relationship Specialty Start Date End Date Armani Campa MD [address] [place] [address] PCP - General 10/19/22 Kylee James APRN [address] [address] Nurse Practitioner Medical Oncology 03/30/23 Faustino Topete MD [address] [address] Consulting Physician Medical Oncology 12/01/23 documented as of this encounter
--- OUTSIDE RECORDS SUMMARY | 2025-01-19 10:58 | XMS_ITS | Encounter Summary ---
Author Organization [facility] Address [address] [place] [address] Care Team Providers Care Mortician Investigator Name Role Phone Armani Campa MD Primary Care Provider Kylee James APRN Unavailable [phone] Faustino Topete MD Unavailable [phone] Reason for Visit * Reason Onset Date Comments new start 11/21/2024 Encounter Details Date Type Department Care Team (Late st Contact Info) Description 11/21/2024 Telephone [facility] [address] [place] [phone] Noble Burrell, PharmD new Social History Tobacco [...] drink first t volodymyr in the morning (EYE-MUSIC WRITER) to steady your nerves or to [...] documented as of this encounter Care Teams Mortician Investigator Relationship Specialty Start Date End Date Armani Campa MD [address] [place] [address] PCP - General 10/19/22 Kylee James APRN [address] [address] Nurse Practitioner Medical Oncology 03/30/23 Faustino Topete MD [address] [place] Rosemarie Cheung [address] [address] Consulting Physician Medical Oncology 12/01/23 documented as of this encounter
--- OUTSIDE RECORDS SUMMARY | 2025-01-19 10:58 | XMS_ITS | Clinical Summary ---
Author Organization [facility] Address [address] [place] [address] Care Team Providers Care Candle Molder Name Role Phone Armani Campa MD Primary Care Provider Kylee James APRN Unavailable [phone] Faustino Topete MD Unavailable [phone] Allergies No known active allergies Medications alendronate [...] (diarrhea). 90 mL 5 11/22/19 25 Active [facility] Please dispense appropriate needles and syringes for octreotide injection 90 each 3 11/30/19 25 Active UltiCare Insulin Syringe 31G X 10/13 0.3 ML [facility] 12/05/19 25 Active KLOR-CON 20 MEQ ER tablet 12/05/19 [...] Encounters Date Type Department Care Team Description 01/15/2025 Telephone [facility] [address] [place] [address] Daxa Schultz, Jolanta 12/05/2024 10:30 AM EDT Office Visit 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) 12/05/2024 Travel 11/29/2024 Refill [facility] [address] [place] [address] Marlin Guevara, PharmD 11/21/2024 Telephone [facility] [address] [place] [phone] Noble Burrell, PharmD [facility] 11/21/2024 Refill [facility] [address] [place] [address] Faustino Topete MD Malignant neuroendocrine neoplasm (CMS/HCC) 11/15/2024 Orders Only [facility] [address] [place] [address] Faustino Topete MD 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 Multidisciplinary Oncology Clinic [address] [place] [address] Faustino Topete MD 11/10/2024 2:00 PM EDT Office Visit 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 0 12/02/2023 CAGE Questionnaire Score 0 024 Utilities Answer Date Recorded In the past 12 months has e electric, gas, oil, or water company [...] Last Done Comments [facility]-Bone Density Scan 1943 [facility]-/Child/Adol SDOH Screenings 1943 [facility]- SDOH Screenings 1961 [facility]-Adult SDOH Screenings 1961 [facility]-Hepatitis A Vaccines (1 of 2 - Risk 2-dose series) 1962 [facility]-Pneumococcal Vaccine: 50+ Years (1 of 2 - PCV) 1962 [facility]-GEBCL-36 Vaccine (6 - season) 2024 03/12/2024, 03/12/2023, [...] 1622(H) <93 ng/mL 11/14/2024 6:56 PM EDT [facility] ([facility]) Comment: Impaired renal or hepatic function or treatment with proton pump inhibitors may result in artifactual elevations of Chromogranin A. ADDITIONAL INFORMATION The testing method is a homogeneous time-resolved immunofluorescent assay manufactured by [employer] and performed on the [employer] Kryptor Compact Plus. Values obtained with different [...] examination and other findings. Test Performed by: [facility] [place] [id number] Wellness Program Coordinator: David Hawkins Ph.D.; CLIA# [id number] Blood Venous blood specimen / Unknown Venipuncture / Unknown 11/10/2024 4:02 PM EDT 11/10/2024 4:19 PM EDT us Faustino Topete MD LAB BLOOD ORDERABLES Final R esult [facility] ([facility]) * (ABNORMAL) 5-HIAA, Plasma (11/10/2024 4:02 PM EDT) Pathologist [facility] Fasting greater than or equal to 8 hours? Yes 11/23/2024 4:20 PM EDT [facility] 5-Hydroxyindole acetic Acid (HIAA), Plasma 58(H) <=22 ng/ml 11/23/2024 4:20 PM EDT [facility] ([facility]) Blood Venous blood specimen / Unknown Venipuncture / Unknown 11/10/2024 4:02 PM EDT 11/10/2024 4:12 PM EDT Narrative [facility] ([facility]) - 11/23/2024 4:20 PM EDT This GCMS assay was developed and its performance characteristics determined by [facility]. It has not been cleared or approved by the FDA and such approval or clearance is not required at this time. Values obtained with different methods, different laboratories or with kits cannot be used interchangeably with the results on this report. The results cannot be interpreted as absolute evidence of the presence or absence of malignant disease. Performed By: [facility] [address] [place] [id number]<lb> Faustino Topete MD LAB BLOOD ORDERABLES Final R esult [facility] [[email or web address] ([facility]) [facility] [address] [place] [address] * (ABNORMAL) CBC and differential (11/10/2024 4:02 PM EDT) Pathologist [facility] WBC Count 6.30 3.70 - 10.30 10*3/uL LAB HEMATOLOGY METHOD 11/10/2024 5:55 PM EDT [facility] RBC Count 4.67 3.90 - 5.20 10*6/uL LAB HEMATOLOGY METHOD 11/10/2024 5:55 PM EDT [facility] HGB 11.7 11.2 - 15.7 g/dL LAB HEMATOLOGY METHOD 11/10/2024 5:55 PM EDT [facility] HCT 37.8 34.0 - 45.0 % LAB HEMATOLOGY METHOD 11/10/2024 5:55 PM EDT [facility] Platelet Count 138(L) 155 - 369 10*3/uL LAB HEMATOLOGY METHOD 11/10/2024 5:55 PM EDT [facility] MCV 81 79 - 98 fL LAB HEMATOLOGY METHOD 11/10/2024 5:55 PM EDT [facility] MCH 25.1(L) 26.0 - 32.0 pg LAB HEMATOLOGY METHOD 11/10/2024 5:55 PM EDT [facility] MCHC 31.0 30.7 - 35.5 g/dL LAB HEMATOLOGY METHOD 11/10/2024 5:55 PM EDT [facility] RDW 16.1(H) 11.5 - 14.5 % LAB HEMATOLOGY METHOD 11/10/2024 5:55 PM EDT [facility] MPV LAB HEMATOLOGY METHOD 11/10/2024 5:55 PM EDT [facility] Comment:Not Measured nRBC 0.0 <=0.0 per 100 WBCs LAB HEMATOLOGY METHOD 11/10/2024 5:55 PM EDT [facility] Differential Type Automated LAB HEMATOLOGY METHOD 11/10/2024 5:55 PM EDT [facility] Neutrophils % 75 % LAB HEMATOLOGY METHOD 11/10/2024 5:55 PM EDT [facility] Lymphocytes % 15 % LAB HEMATOLOGY METHOD 11/10/2024 5:55 PM EDT [facility] Monocytes % 9 % LAB HEMATOLOGY METHOD 11/10/2024 5:55 PM EDT [facility] Eosinophils % 1 % LAB HEMATOLOGY METHOD 11/10/2024 5:55 PM EDT [facility] Basophils % 0 % LAB HEMATOLOGY METHOD 11/10/2024 5:55 PM EDT [facility] Immature Granulocytes % 0 % LAB HEMATOLOGY METHOD 11/10/2024 5:55 PM EDT [facility] Neutrophils Absolute 4.69 1.60 - 6.10 10*3/uL LAB HEMATOLOGY METHOD 11/10/2024 5:55 PM EDT [facility] Lymphocytes Absolute 0.95(L) 1.20 - 3.90 10*3/uL LAB HEMATOLOGY METHOD 11/10/2024 5:55 PM EDT [facility] Monocytes Absolute 0.54 0.30 - 0.90 10*3/uL LAB HEMATOLOGY METHOD 11/10/2024 5:55 PM EDT [facility] Eosinophils Absolute 0.08 0.00 - 0.50 10*3/uL LAB HEMATOLOGY METHOD 11/10/2024 5:55 PM EDT [facility] Basophils Absolute 0.02 0.00 - 0.10 10*3/uL LAB HEMATOLOGY METHOD 11/10/2024 5:55 PM EDT [facility] Immature Granulocytes Absolute 0.02 0.00 - 0.06 10*3/uL LAB HEMATOLOGY METHOD 11/10/2024 5:55 PM EDT [facility] Blood Venous blood specimen / Unknown Venipuncture / Unknown 11/10/2024 4:02 PM EDT 11/10/2024 4:27 PM EDT Narrative [facility] - 11/10/2024 5:55 PM EDT Therapeutic decision making should be based on absolute values, rather than percentages. us Faustino Topete MD LAB BLOOD ORDERABLES Final R esult [facility] [address] [place] [address] * (ABNORMAL) Serotonin, Serum (11/10/2024 4:02 PM EDT) SEROTONIN 1449(H) 50 - 220 ng/mL 11/13/2024 6:02 AM EDT [facility] [place]) Serum Venous blood specimen / Unknown 11/10/2024 4:02 PM EDT 11/10/2024 4:18 PM EDT Narrative [facility] [place]) - 11/13/2024 6:02 AM EDT TEST INFORMATION: Serotonin, Serum This test was developed and its performance characteristics determined by [facility]. It has not been cleared or approved by the [place] Food and Drug Administration. This test was performed in a CLIA certified laboratory and is intended for clinical purposes. Performed By: [facility] [address] [place] [id number] Land Checker: Kurt Borges MD, PhD CLIA Number: [id number] Faustino Topete MD LAB BLOOD ORDERABLES Final R esult [facility] [[email or web address] ([facility]) [address] [place] [address] * (ABNORMAL) Magnesium (11/10/2024 4:02 PM EDT) Magnesium, Plasma 1.5(L) 1.9 - 2.4 mg/dL 11/10/2024 4:51 PM EDT [facility] Blood Venous blood specimen / Unknown Venipuncture / Unknown 11/10/2024 4:02 PM EDT 11/10/2024 4:18 PM EDT Faustino Topete MD LAB BLOOD ORDERABLES Final R esult [facility] [address] [place] [address] * (ABNORMAL) Comprehensive metabolic panel (11/10/2024 4:02 PM EDT) Glucose, Plasma 92 74 - 99 mg/dL 11/10/2024 4:51 PM EDT [facility] BUN, Plasma 14 8 - 23 mg/dL 11/10/2024 4:51 PM EDT [facility] Creatinine, Plasma 0.57(L) 0.60 - 1.10 mg/dL 11/10/2024 4:51 PM EDT [facility] BUN/Creatinine Ratio 25 11/10/2024 4:51 PM EDT [facility] Sodium, Plasma 141 136 - 145 mmol/L 11/10/2024 4:51 PM EDT [facility] Potassium, Plasma 3.4(L) 3.6 - 4.9 mmol/L 11/10/2024 4:51 PM EDT [facility] Chloride, Plasma 106 97 - 107 mmol/L 11/10/2024 4:51 PM EDT [facility] CO2, Plasma 21(L) 22 - 29 mmol/L 11/10/2024 4:51 PM EDT [facility] Anion Gap 14 6 - 16 mmol/L 11/10/2024 4:51 PM EDT [facility] Total Calcium, Plasma 8.6(L) 8.9 - 10.2 mg/dL 11/10/2024 4:51 PM EDT [facility] Total Protein 7.4 6.3 - 7.9 g/dL 11/10/2024 4:51 PM EDT [facility] Albumin, Plasma 3.8 3.5 - 5.2 g/dL 11/10/2024 4:51 PM EDT [facility] AST, Plasma 36(H) 10 - 35 U/L 11/10/2024 4:51 PM EDT [facility] ALT, Plasma 20 10 - 35 U/L 11/10/2024 4:51 PM EDT [facility] Alkaline Phosphatase, Plasma 98 46 - 142 U/L 11/10/2024 4:51 PM EDT [facility] Total Bilirubin, Plasma 0.3 0.2 - 1.1 mg/dL 11/10/2024 4:51 PM EDT [facility] eGFRcr 91.4 mL/min/1.7 3m*2 11/10/2024 4:51 PM EDT [facility] Comment:Reported eGFRcr in m L/min/1.73m2 is based the CKD-EPI 2020 equation that does not use a race coefficient. Blood Venous blood specimen / Unknown Venipuncture / Unknown 11/10/2024 4:02 PM EDT 11/10/2024 4:18 PM EDT us Faustino Topete MD LAB BLOOD ORDERABLES Final R esult [facility] [address] [place] [address] from Last 3 Months Insurance [employer] MEDICARE [...] Patient has decision-making capacity? Yes Care Teams Candle Molder Relationship Specialty Start Date End Date Armani Campa MD [address] [place] [address] PCP - General 10/19/22 Kylee James, SHERIE [address] [phone] Nurse Practitioner Medical Oncology 03/30/23 Faustino Topete MD [address] [facility] [address] [place] [address] Consulting Physician Medical Oncology 12/01/23
--- OUTSIDE RECORDS SUMMARY | 2025-01-19 10:58 | XMS_ITS | Clinical Summary ---
Author Organization [facility] Address [address] [place] [address] Care Team Providers Care Traffic Control Supervisor Name Role Phone Armani Campa MD [...] fracture 12/25/2021 Overactive bladder 12/25/2021 Hypokalemia 12/25/2021 retirement (current) use of n on-steroidal anti-inflammatories (nsaid) 12/25/2021 Encounters Date Type Department Care Team Description 11/07/2024 Telephone [facility] [address] [place] [address] Armani Campa MD MEDICATION ISSUE 11/06/2024 Telephone [facility] [address] [place] [address] Armani Campa MD Med Management 11/06/2024 Refill [facility] [address] [place] [address] Armani Campa MD 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 Telephone [facility] [address] [facility] [place] [address] Armani Campa MD New Med Request [...] Description 02/15/2025 3:15 PM EDT Office Visit [facility] [address] [place], [place] [address] Armani Campa MD [address] [place] [address] Health Maintenance Due Date Last Done Comments [...] Documents on File Type Date Recorded Patient Sider Mechanic Expl anation LIVING WILL - SCAN 01/28/2022 11:09 AM [facility], [facility], 05/20/2021 Care Teams Traffic Control Supervisor Relationship Specialty Start Date End Date Armani Campa MD [address] [place] [address] PCP - General Family Medicine 12/25/21
--- OUTSIDE RECORDS SUMMARY | 2025-01-19 10:58 | XMS_ITS | Encounter Summary ---
Author Organization [facility] Address [address] [place] [address] Care Team Providers Care Freight Hustler Name Role Phone Armani Campa MD Primary Care Provider [phone] Kylee James APRN Unavailable [phone] Faustino Topete MD Unavailable [phone] Encounter Details Date Type Department Care Team [...] drink first t volodymyr in the morning (EYE-TUYERE FITTER) to steady your nerves or to get rid of a hangover? 0 12/02/2023 CAGE Questionnaire Score 0 024 Utilities Answer Date Recorded In the past 12 months has th e [employer], gas, oil, or water [address] threatened to shut off services in your [...] as of this encounter Care Teams Freight Hustler Relationship Specialty Start Date End Date Armani Campa MD [address] [place] [address] PCP - General 10/19/22 Kylee James APRN [address] [address] Nurse Practitioner Medical Oncology 03/30/23 Faustino Topete MD [address] [phone] Consulting Physician Medical Oncology 12/01/23 documented as of this encounter
--- OUTSIDE RECORDS SUMMARY | 2025-01-19 10:58 | XMS_ITS | Encounter Summary ---
Author Organization [facility] Address [address] [place] [address] Care Team Providers Care Bowling Ball Patcher Name Role Phone Armani Campa MD Primary Care Provider + Encounter Details Date Type Department Care Team (Late st Contact Info) Description 10/11/2024 Results Follow-Up [facility] [address] [place] [address] Armani Campa MD [address] [place] [address] Social History Tobacco Use Types [...] Description 02/15/2025 3:15 PM EDT Office Visit [facility] [address] [place] [address] Armani Campa MD [address] [facility] [place] [address] documented as of this encounter Visit Diagnoses Not on filedocumented in this encounter Additional Health Concerns Assessment Noted Time PHQ-2 Depression Total Score: 1 02/15/20 24 10:24 AM EDT documented as of this encounter Care Teams Bowling Ball Patcher Relationship Specialty Start Date End Date Armani Campa MD [address] [place] [address] PCP - General Family Medicine 12/25/21 documented as of this encounter
[2025-01-19 11:10] VITALS: BP 136/73; PULSE 69; RESP 18; O2SAT 97
[2025-01-19] MEDS: 0.9 % SODIUM CHLORIDE 1000ML 1,000 ML 999 ML IV (11:10)
[2025-01-19 12:11] VITALS: BP 154/84; PULSE 78; RESP 18; O2SAT 97
== END 2025-01-19 12:11 | disposition home or self-care (01) ==
LOC: INF 10:46
PROVIDERS: PCP Family Medicine; Visit Provider Internal Medicine Hematology & Oncology
DX: C7B.8 Other secondary neuroendocrine tumors (principal)
CPT/HCPCS: 96360; J7030

== ENCOUNTER 2025-01-26 11:04 | Outpatient (CLI) | payer MEDICARE, SELFPAY ==
--- OUTSIDE RECORDS SUMMARY | 2024-12-05 10:30 | XMS_ITS | Encounter Summary ---
Author Organization [facility] Address [address] [place] [address] Care Team Providers Care Rn Teacher Name Role Phone Armani Campa MD Primary Care Provider [phone] Kylee James TAX REPRESENTATIVE Unavailable [phone] Faustino Topete MD Unavailable [phone] Reason for Visit * Reason Comments Routine Follow-up Encounter Details Date Type Department Care Team (Late st Contact Info) Description 12/05/2024 10:30 AM EDT Office Visit [facility] Multidisciplinary Oncology Clinic [address] [place] [address] hSannon Aguero, TAX REPRESENTATIVE 800 [facility] [address] [place] [address] Metastatic malignant neuroendocrine tumor to [...] drink first t volodymyr in the morning (EYE-CASTABLES WORKER) to steady your nerves or to get [...] prn. She continues to get IVFs at [facility] once a week. She is staking KCL [...] to get IVF's once a week at [facility] in [place] - She prefers not to get scanned at this time - Continue KCL 20 meq daily Telehealth Statement Patient Verification Patient identity has been confirmed using name and date of ? Yes Authorizations and Agreements/Telemedicine Consent sent and consent confirmed? Yes Patient Location: Home/Other Patient confirms they are physically located in [place]? Yes If the patient is not physically located in [place], the provider has confirmed with [facility] thatthe provider is authorized to provide services in patient's stated location? N/A Provider Location: [facility] facility Audio and video or audio only? [...] in patients with cancer. Shannon Aguero, MERCEDES, TAX REPRESENTATIVE, SKIVER OPERATOR-C Division of Medical Oncology documented in this [...] documented as of this encounter Care Teams Rn Teacher Relationship Specialty Start Date End Date Armani Campa MD [address] [place] [address] PCP - General 10/19/22 Kylee James APRN [address] Rosemarie Cheung [address] [address] Nurse Practitioner Medical Oncology 03/30/23 Faustino Topete MD [address] [facility] [address] [place] [address] Consulting Physician Medical Oncology 12/01/23 documented as of this encounter
--- OUTSIDE RECORDS SUMMARY | 2025-01-26 11:08 | XMS_ITS | Encounter Summary ---
Author Organization [facility] Address [address] [place] [address] Care Team Providers Care Senior Cyber Security Analyst Name Role Phone Armani Campa MD Primary Care Provider [phone] Kylee James APRN Unavailable [phone] Faustino Topete MD Unavailable [phone] Encounter Details Date Type Department Care Team (Late st Contact Info) Description 01/15/2025 Telephone [facility] [address] [place] [address] Daxa Schultz, skein tier Social History Tobacco Use Types Packs/Day Years [...] drink first t volodymyr in the morning (EYE-WEBBING TACKER) to steady your nerves or to get [...] documented as of this encounter Care Teams Senior Cyber Security Analyst Relationship Specialty Start Date End Date Armani Campa MD [address] [place] [address] PCP - General 10/19/22 Kylee James APRN [address] [address] Nurse Practitioner Medical Oncology 03/30/23 Faustino Topete MD [address] [address] Consulting Physician Medical Oncology 12/01/23 documented as of this encounter
--- OUTSIDE RECORDS SUMMARY | 2025-01-26 11:08 | XMS_ITS ---
Author Organization [facility] Address [address] [place] [address] Care Team Providers Care Inclined Railway Operator Name Role Phone Armani Campa MD Primary Care Provider [phone] Kylee James APRN Unavailable [phone] Faustino Topete MD Unavailable [phone] Active Problems Problem Noted Date Diagnosed Date [...]
--- OUTSIDE RECORDS SUMMARY | 2025-01-26 11:08 | XMS_ITS | Encounter Summary ---
Author Organization [facility] Address [address] [place] [address] Care Team Providers Care Therapeutic Riding Instructor Name Role Phone Armani Campa MD Primary Care Provider [phone] Kylee James APRN Unavailable [phone] Faustino Topete MD Unavailable [phone] Reason for Visit * Reason Onset Date Comments new start 11/21/2024 Encounter Details Date Type Department Care Team (Late st Contact Info) Description 11/21/2024 Telephone [facility] [address] [place] [phone] Noble Burrell, PharmD Social History Tobacco Use [...] drink first t volodymyr in the morning (EYE-SODA ROOM OPERATOR) to steady your nerves or to [...] documented as of this encounter Care Teams Therapeutic Riding Instructor Relationship Specialty Start Date End Date Armani Campa MD [address] [place] [address] PCP - General 10/19/22 Kylee James APRN [address] [address] Nurse Practitioner Medical Oncology 03/30/23 Faustino Topete MD [address] [place] Rosemarie Cheung [address] [address] Consulting Physician Medical Oncology 12/01/23 documented as of this encounter
--- OUTSIDE RECORDS SUMMARY | 2025-01-26 11:08 | XMS_ITS | Encounter Summary ---
Author Organization [facility] Address [address] [place] [address] Care Team Providers Care Movie Theater Usher Name Role Phone Armani Campa MD Primary Care Provider [phone] Kylee James APRN Unavailable [phone] Faustino Topete MD Unavailable [phone] Encounter Details Date Type Department Care Team [...] drink first t volodymyr in the morning (EYE-GROOVER OPERATOR) to steady your nerves or to get rid of a hangover? 0 12/02/2023 CAGE Questionnaire Score 0 024 Utilities Answer Date Recorded In the past 12 [address] has [address] e IP Street, gas, oil, or water [employer] threatened to shut off services in your [...] documented as of this encounter Care Teams Movie Theater Usher Relationship Specialty Start Date End Date Armani Campa MD [address] [place] [address] PCP - General 10/19/22 Kylee James APRN [address] [address] Nurse Practitioner Medical Oncology 03/30/23 Faustino Topete MD [address] [address] Consulting Physician Medical Oncology 12/01/23 documented as of this encounter
--- OUTSIDE RECORDS SUMMARY | 2025-01-26 11:08 | XMS_ITS | Encounter Summary ---
Author Organization [facility] Address [address] [place] [address] Care Team Providers Care Public Employment Mediator Name Role Phone Armani Campa MD Primary Care Provider + Encounter Details Date Type Department Care Team (Late st Contact Info) Description 10/11/2024 Results Follow-Up [facility] [address] [place] [address] Armani Campa MD [address] [place] [address] Social History Tobacco Use Types [...] [facility] MEDIC[facility] [address] [place] [address] Armani Campa MD [address] [facility] [place] [address] documented as of this encounter Visit Diagnoses Not on filedocumented in this encounter Additional Health Concerns Assessment Noted Time PHQ-2 Depression Total Score: 1 02/15/20 24 10:24 AM EDT documented as of this encounter Care Teams Public Employment Mediator Relationship Specialty Start Date End Date Armani Campa MD [address] [place] [place] [address] PCP - General Family Medicine 12/25/21 documented as of this encounter
--- OUTSIDE RECORDS SUMMARY | 2025-01-26 11:08 | XMS_ITS | Clinical Summary ---
Author Organization [facility] Address [address] [place] [address] Care Team Providers Care Manager Mountain Name Role Phone Armani Campa MD Primary Care Provider [phone] Kylee James APRN Unavailable [phone] Faustino Topete MD Unavailable [phone] Allergies No known active allergies Medications alendronate [...] (diarrhea). 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) 12/05/2024 Travel 11/29/2024 Refill [facility] [address] [place] [address] Marlin Guevara, PharmD 11/21/2024 Telephone [facility] [address] [place] [phone] Noble Burrell, PharmD new start 11/21/2024 Refill [facility] [address] [place] [address] Faustino Topete MD Malignant neuroendocrine neoplasm (CMS/HCC) 11/15/2024 Orders Only [facility] [address] [place] [address] Faustino Topete MD 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) 11/13/2024 Telephone [facility] [address] [place] [address] Faustino Topete MD 11/10/2024 2:00 PM EDT Office Visit [facility] [address] [place] [address] Faustino Topete MD 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 0 12/02/2023 CAGE Questionnaire Score 0 024 Utilities Answer Date Recorded In the past 12 months has th [employer], gas, oil, or water company threatened to [...] Years (1 of 2 - PCV) 1964 [id number] Vaccine ( season) 2024 03/12/2024, 03/12/2023, 03/11/2022, [...] 1622(H) <93 ng/mL 11/14/2024 6:56 PM EDT [facility] ([facility]) Comment: Impaired renal or hepatic function or treatment with proton pump inhibitors may result in artifactual elevations of Chromogranin A. ADDITIONAL INFORMATION The testing method is a homogeneous time-resolved immunofluorescent assay manufactured by [employer] and performed on the CartiHeal Kryptor Compact Plus. Values obtained with different [...] examination and other findings. Test Performed by: [place] [address] Parts Department Supervisor: David Hawkins Ph.D.; CLIA# [id number] Blood Venous blood specimen / Unknown Venipuncture / Unknown 11/10/2024 4:02 PM EDT 11/10/2024 4:19 PM EDT us Faustino Topete MD LAB BLOOD ORDERABLES Final R esult [facility] ([facility]) * (ABNORMAL) 5-HIAA, Plasma (11/10/2024 4:02 PM EDT) Pathologist [facility] Fasting greater than or equal to 8 hours? Yes 11/23/2024 4:20 PM EDT [facility] 5-Hydroxyindole acetic Acid (HIAA), Plasma 58(H) <=22 ng/ml 11/23/2024 4:20 PM EDT [facility] ([facility]) Blood Venous blood specimen / Unknown Venipuncture / Unknown 11/10/2024 4:02 PM EDT 11/10/2024 4:12 PM EDT Narrative [facility] ([facility]) - 11/23/2024 4:20 PM EDT This GCMS assay was developed and its performance characteristics determined by [facility]. It has not been cleared or approved by the FDA and such approval or clearance is not required at this time. Values obtained with different methods, different laboratories or with kits cannot be used interchangeably with the results on this report. The results cannot be interpreted as absolute evidence of the presence or absence of malignant disease. Performed By: [facility] [address] [place] [address]<lb> us Faustino Topete MD LAB BLOOD ORDERABLES Final R esult [facility] ([facility]) [facility] [address] [place] [address] * (ABNORMAL) CBC and differential (11/10/2024 4:02 PM EDT) Pathologist [facility] WBC Count 6.30 3.70 - 10.30 10*3/uL LAB HEMATOLOGY METHOD 11/10/2024 5:55 PM EDT [facility] RBC Count 4.67 3.90 - 5.20 10*6/uL LAB HEMATOLOGY METHOD 11/10/2024 5:55 PM EDT [facility] HGB 11.7 11.2 - 15.7 g/dL LAB HEMATOLOGY METHOD 11/10/2024 5:55 PM EDT [facility] HCT 37.8 34.0 - 45.0 % LAB HEMATOLOGY METHOD 11/10/2024 5:55 PM EDT [facility] Platelet Count 138(L) 155 - 369 10*3/uL LAB HEMATOLOGY METHOD 11/10/2024 5:55 PM EDT [facility] MCV 81 79 - 98 fL LAB HEMATOLOGY METHOD 11/10/2024 5:55 PM EDT [facility] MCH 25.1(L) 26.0 - 32.0 pg LAB HEMATOLOGY METHOD 11/10/2024 5:55 PM EDT [facility] MCHC 31.0 30.7 - 35.5 g/dL LAB HEMATOLOGY METHOD 11/10/2024 5:55 PM EDT [facility] RDW 16.1(H) 11.5 - 14.5 % LAB HEMATOLOGY METHOD 11/10/2024 5:55 PM EDT [facility] MPV LAB HEMATOLOGY METHOD 11/10/2024 5:55 PM EDT [facility] Comment:Not Measured nRBC 0.0 <=0.0 per 100 WBCs LAB HEMATOLOGY METHOD 11/10/2024 5:55 PM EDT [facility] Differential Type Automated LAB HEMATOLOGY METHOD 11/10/2024 5:55 PM EDT [facility] Neutrophils % 75 % LAB HEMATOLOGY METHOD 11/10/2024 5:55 PM EDT [facility] Lymphocytes % 15 % LAB HEMATOLOGY METHOD 11/10/2024 5:55 PM EDT [facility] Monocytes % 9 % LAB HEMATOLOGY METHOD 11/10/2024 5:55 PM EDT [facility] Eosinophils % 1 % LAB HEMATOLOGY METHOD 11/10/2024 5:55 PM EDT [facility] Basophils % 0 % LAB HEMATOLOGY METHOD 11/10/2024 5:55 PM EDT [facility] Immature Granulocytes % 0 % LAB HEMATOLOGY METHOD 11/10/2024 5:55 PM EDT [facility] Neutrophils Absolute 4.69 1.60 - 6.10 10*3/uL LAB HEMATOLOGY METHOD 11/10/2024 5:55 PM EDT [facility] Lymphocytes Absolute 0.95(L) 1.20 - 3.90 10*3/uL LAB HEMATOLOGY METHOD 11/10/2024 5:55 PM EDT [facility] Monocytes Absolute 0.54 0.30 - 0.90 10*3/uL LAB HEMATOLOGY METHOD 11/10/2024 5:55 PM EDT [facility] Eosinophils Absolute 0.08 0.00 - 0.50 10*3/uL LAB HEMATOLOGY METHOD 11/10/2024 5:55 PM EDT [facility] Basophils Absolute 0.02 0.00 - 0.10 10*3/uL LAB HEMATOLOGY METHOD 11/10/2024 5:55 PM EDT [facility] Immature Granulocytes Absolute 0.02 0.00 - 0.06 10*3/uL LAB HEMATOLOGY METHOD 11/10/2024 5:55 PM EDT [facility] Blood Venous blood specimen / Unknown Venipuncture / Unknown 11/10/2024 4:02 PM EDT 11/10/2024 4:27 PM EDT Narrative [facility] - 11/10/2024 5:55 PM EDT Therapeutic decision making should be based on absolute values, rather than percentages. Faustino Topete MD LAB BLOOD ORDERABLES Final R esult [facility] [address] [place] [address] * (ABNORMAL) Serotonin, Serum (11/10/2024 4:02 PM EDT) SEROTONIN 1449(H) 50 - 220 ng/mL 11/13/2024 6:02 AM EDT [facility] ([facility]) Serum Venous blood specimen / Unknown 11/10/2024 4:02 PM EDT 11/10/2024 4:18 PM EDT Narrative [facility] ([facility]) - 11/13/2024 6:02 AM EDT TEST INFORMATION: Serotonin, Serum This test was developed and its performance characteristics determined by [facility]. It has not been cleared or approved by the [place] Food and Drug Administration. This test was performed in a CLIA certified laboratory and is intended for clinical purposes. Performed By: [facility] [address] [place] [id number] Manpower Development Specialist: Kurt Borges MD, PhD CLIA Number: [id number] Faustino Topete MD LAB BLOOD ORDERABLES Final R esult [facility] ([facility]) [address] [place] [address] * (ABNORMAL) Magnesium (11/10/2024 4:02 PM EDT) Magnesium, Plasma 1.5(L) 1.9 - 2.4 mg/dL 11/10/2024 4:51 PM EDT [facility] Blood Venous blood specimen / Unknown Venipuncture / Unknown 11/10/2024 4:02 PM EDT 11/10/2024 4:18 PM EDT Faustino Topete MD LAB BLOOD ORDERABLES Final R esult [facility] [address] [place] [address] * (ABNORMAL) Comprehensive metabolic panel (11/10/2024 4:02 PM EDT) Glucose, Plasma 92 74 - 99 mg/dL 11/10/2024 4:51 PM EDT [facility] BUN, Plasma 14 8 - 23 mg/dL 11/10/2024 4:51 PM EDT [facility] Creatinine, Plasma 0.57(L) 0.60 - 1.10 mg/dL 11/10/2024 4:51 PM EDT [facility] BUN/Creatinine Ratio 25 11/10/2024 4:51 PM EDT [facility] Sodium, Plasma 141 136 - 145 mmol/L 11/10/2024 4:51 PM EDT [facility] Potassium, Plasma 3.4(L) 3.6 - 4.9 mmol/L 11/10/2024 4:51 PM EDT [facility] Chloride, Plasma 106 97 - 107 mmol/L 11/10/2024 4:51 PM EDT [facility] CO2, Plasma 21(L) 22 - 29 mmol/L 11/10/2024 4:51 PM EDT [facility] Anion Gap 14 6 - 16 mmol/L 11/10/2024 4:51 PM EDT [facility] Total Calcium, Plasma 8.6(L) 8.9 - 10.2 mg/dL 11/10/2024 4:51 PM EDT [facility] Total Protein 7.4 6.3 - 7.9 g/dL 11/10/2024 4:51 PM EDT [facility] Albumin, Plasma 3.8 3.5 - 5.2 g/dL 11/10/2024 4:51 PM EDT [facility] AST, Plasma 36(H) 10 - 35 U/L 11/10/2024 4:51 PM EDT [facility] ALT, Plasma 20 10 - 35 U/L 11/10/2024 4:51 PM EDT [facility] Alkaline Phosphatase, Plasma 98 46 - 142 U/L 11/10/2024 4:51 PM EDT [facility] Total Bilirubin, Plasma 0.3 0.2 - 1.1 mg/dL 11/10/2024 4:51 PM EDT [facility] eGFRcr 91.4 mL/min/1.7 3m*2 11/10/2024 4:51 PM EDT [facility] Comment:Reported eGFRcr in m L/min/1.73m2 is based the CKD-EPI 2020 equation that does not use a race coefficient. Blood Venous blood specimen / Unknown Venipuncture / Unknown 11/10/2024 4:02 PM EDT 11/10/2024 4:18 PM EDT us Faustino Topete MD LAB BLOOD ORDERABLES Final R esult Performing Organization Address City/State/[facility] Co de Phone Number [facility] [address] [place] [address] from Last 3 Months Insurance [employer] MEDICARE [...] Patient has decision-making capacity? Yes Care Teams Manager Mountain Relationship Specialty Start Date End Date Armani Campa MD [address] [place] [address] PCP - General 10/19/22 Kylee James APRN [address] [place] [address] [place] [phone] Nurse Practitioner Medical Oncology 03/30/23 Faustino Tpoete MD [address] [place] [address] [place] [address] Consulting Physician Medical Oncology 12/01/23
--- OUTSIDE RECORDS SUMMARY | 2025-01-26 11:08 | XMS_ITS | Encounter Summary ---
Author Organization [facility] Address [address] [place] [address] Care Team Providers Care Brine Plant Operator Name Role Phone Armani Campa MD Primary Care Provider + Encounter Details Date Type Department Care Team (Late st Contact Info) Description 08/15/2024 Results Follow-Up [facility] [address] [place] [address] Armani Campa MD [address] [place] [address] Social History Tobacco Use Types [...] [facility] [address] [place] [address] Armani Campa MD [address] [facility] [address] documented as of this encounter Visit Diagnoses Not on filedocumented in this encounter Additional Health Concerns Assessment Noted Time PHQ-2 Depression Total Score: 1 02/15/20 24 10:24 AM EDT documented as of this encounter Care Teams Brine Plant Operator Relationship Specialty Start Date End Date Armani Campa MD [address] [place] [address] PCP - General Family Medicine 12/25/21 documented as of this encounter
--- OUTSIDE RECORDS SUMMARY | 2025-01-26 11:08 | XMS_ITS | Encounter Summary ---
Author Organization [facility] Address [address] [place] [address] Care Team Providers Care Criminal Justice Department Chair Name Role Phone Armani Campa MD Primary Care Provider [phone] Kylee James APRN Unavailable [phone] Faustino Ruano MD Unavailable [phone] Encounter Details Date Type Department Care Team (Late st Contact Info) Description 11/13/2024 Telephone [facility] [address] [place] [address] Faustino Ruano MD 800 [facility] [address] [place] [address] Social History Tobacco Use Types [...] drink first t volodymyr in the morning (EYE-FREELANCE DESIGNER) to steady your nerves or to get [...] was left IVF order sent in to [facility] and noted dr ruano's message on the serotonin level * Telephone Encounter - Leticia Bowen - 11/13/2024 12:18 PM EDT Melody not listed on pts preferred contacts, no answer from pt. * Telephone Encounter - Fransisca Jasso - 11/13/2024 11:39 AM EDT Patient Phone Message Reason for Call: Melody was worried about her serotonin level and IV fluids in her [place] [facility]- Can you Melody back? Best contact number and optimal time of day to reach caller: [phone] Note: Please do not reply to this message. Follow-up communication and further actions as a result of this message need to be communicated with the patient directly, if the patient is not active onMyChart. If the patient is active on MyChart, they will receive notification of the communication/outcome via reMailhart. documented in this encounter Plan of Treatment [...] of this encounter Care Teams Criminal Justice Department Chair Relationship Specialty Start Date End Date Armani Campa MD [address] [place] [address] PCP - General 10/19/22 Kylee James APRN [address] Rosemar[address] Cheung [address] [address] Nurse Practitioner Medical Oncology 03/30/23 Faustino Ruano MD [address]mar[address] Cheung [address] [address] Consulting Physician Medical Oncology 12/01/23 documented as of this encounter
--- OUTSIDE RECORDS SUMMARY | 2025-01-26 11:08 | XMS_ITS | Encounter Summary ---
Author Organization [facility] Address [address] [place] [address] Care Team Providers Care Director Supply Name Role Phone Armani Campa MD Primary Care Provider [phone] Kylee James APRN Unavailable [phone] Faustino Topete MD Unavailable [phone] Encounter Details Date Type Department Care Team (Late st Contact Info) Description 11/29/2024 Refill [facility] [address] [place] [address] Marlin Guevara, PharmD [address] [phone] Social History Tobacco Use Types Packs/Day Years [...] drink first t volodymyr in the morning (EYE-COMPUTER APPLICATIONS DEVELOPER) to steady your nerves or to [...] as of this encounter Care Teams Director Supply Relationship Specialty Start Date End Date Armani Campa MD [address] [place] [address] PCP - General 10/19/22 Kylee James APRN [address] [address] Nurse Practitioner Medical Oncology 03/30/23 Faustino Topete MD [address] [address] Consulting Physician Medical Oncology 12/01/23 documented as of this encounter
--- OUTSIDE RECORDS SUMMARY | 2025-01-26 11:09 | XMS_ITS | Encounter Summary ---
Author Organization [facility] Address [address] [place] [address] Care Team Providers Care Patrol Police Lieutenant Name Role Phone Armani Campa MD Primary Care Provider + Reason for Visit * Reason Comments Med Refill Encounter Details Date Type Department Care Team (Late st Contact Info) Description 04/01/2023 Refill [facility] [address] [place] [address] Armani Campa MD [address] [place] [address] Primary osteoarthritis of right knee [...] [facility] [address] [place] [phone] Armani Campa MD [address] [place] [address] documented as of this encounter Visit Diagnoses Diagnosis Primary osteoarthritis of right knee documented in this encounter Care Teams Patrol Police Lieutenant Relationship Specialty Start Date End Date Armani Campa MD [address] [place] [address] PCP - General Family Medicine 12/25/21 documented as of this encounter
--- OUTSIDE RECORDS SUMMARY | 2025-01-26 11:09 | XMS_ITS | Clinical Summary ---
Author Organization [facility] Address [address] [place] [address] Care Team Providers Care Cotton Seed Culler Name Role Phone Armani Campa MD Primary [...] fracture 12/25/2021 Overactive bladder 12/25/2021 Hypokalemia 12/25/2021 correction (current) use of n on-steroidal anti-inflammatories (nsaid) 12/25/2021 Encounters Date Type Department Care Team Description 11/07/2024 Telephone [facility] [address] [place] [address] Armani Campa MD MEDICATION ISSUE 11/06/2024 Telephone [facility] [address] [place] [address] Armani Campa MD Med Management 11/06/2024 Refill [facility] [address] [place] [address] Armani Campa MD 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 Telephone [facility] [address] [facility] [place] [address] Armani Campa MD New Med Request [...] EDT Office Visit [facility] [address] [place], [place] [address] Armani Campa MD [address] [place] [address] Health Maintenance Due Date Last Done Comments [...] Documents on File Type Date Recorded Patient Livestock Trucker Expl anation LIVING WILL - SCAN 01/28/2022 11:09 AM [facility], [facility], 05/20/2021 Care Teams Cotton Seed Culler Relationship Specialty Start Date End Date Armani Campa MD [address] [place] [address] PCP - General Family Medicine 12/25/21
[2025-01-26 11:18] VITALS: BP 143/75; PULSE 78; RESP 20; TEMP 36.4; O2SAT 98
[2025-01-26] MEDS: 0.9 % SODIUM CHLORIDE 1000ML 1,000 ML 999 ML IV (11:18)
[2025-01-26] MEDS: SODIUM CHLORIDE 0.9% 10ML FLUSH SYRINGE 10 ML IV (11:18)
[2025-01-26 12:18] VITALS: BP 140/72; PULSE 77; RESP 20; O2SAT 98
[2025-01-26 12:51] VITALS: BP 163/78; PULSE 70; RESP 20; O2SAT 98
== END 2025-01-26 12:51 | disposition home or self-care (01) ==
LOC: INF 11:05
PROVIDERS: PCP Family Medicine; Visit Provider Internal Medicine Hematology & Oncology
DX: C7B.8 Other secondary neuroendocrine tumors (principal)
CPT/HCPCS: 96360; J7030

== ENCOUNTER 2025-02-02 10:59 | Outpatient (CLI) | payer MEDICARE, SELFPAY ==
--- OUTSIDE RECORDS SUMMARY | 2024-12-05 10:30 | XMS_ITS | Encounter Summary ---
Author Organization [facility] Address [address] [place] [address] Care Team Providers Care Vocational Examiner Name Role Phone Armani Campa MD Primary Care Provider [phone] Kylee James ETL MANAGER Unavailable [phone] Faustino Topete MD Unavailable [phone] Reason for Visit * Reason Comments Routine Follow-up Encounter Details Date Type Department Care Team (Late st Contact Info) Description 12/05/2024 10:30 AM EDT Office Visit [facility] Multidisciplinary Oncology Clinic [address] [place] [address] Shannon Aguero, ETL MANAGER 800 [facility] [address] [place] [address] Metastatic malignant neuroendocrine tumor to [...] drink first t volodymyr in the morning (EYE-POULTRY FARM SUPERVISOR) to steady your nerves or to get [...] prn. She continues to get IVFs at [facility] once a week. She is [...] to get IVF's once a week at [facility] in [place] - She prefers not to get scanned at this time - Continue KCL 20 meq daily Telehealth Statement Patient Verification Patient identity has been confirmed using name and date of ? Yes Authorizations and Agreements/Telemedicine Consent sent and consent confirmed? Yes Patient Location: Home/Other Patient confirms they are physically located in [place]? Yes If the patient is not physically located in [place], the provider has confirmed with [facility] thatthe provider is authorized to provide services in patient's stated location? N/A Provider Location: [facility] facility Audio and video or audio [...] in patients with cancer. Shannon Aguero, MERCEDES, ETL MANAGER, RN INFORMATICS-C Division of Medical Oncology documented in this [...] documented as of this encounter Care Teams Vocational Examiner Relationship Specialty Start Date End Date Armani Campa MD [address] [place] [address] PCP - General 10/19/22 Kylee James APRN [address] [place] Rosemarie Cheung [address] [address] Nurse Practitioner Medical Oncology 03/30/23 Faustino Topete MD [address] [facility] [address] [place] [address] Consulting Physician Medical Oncology 12/01/23 documented as of this encounter
--- OUTSIDE RECORDS SUMMARY | 2025-02-02 11:02 | XMS_ITS | Encounter Summary ---
Author Organization [facility] Address [address] [place] [address] Care Team Providers Care Rf Microwave Engineer Name Role Phone Armani Campa MD Primary Care Provider + Encounter Details Date Type Department Care Team (Late st Contact Info) Description 08/15/2024 Results Follow-Up [facility] [address] [place] [address] Armani Campa MD [address] [place] [address] Social History Tobacco Use Types [...] Description 02/15/2025 3:15 PM EDT Office Visit [facility] [address] [place] [address] Armani Campa MD 210 [facility] [place] [address] documented as of this encounter Visit Diagnoses Not on filedocumented in this encounter Additional Health Concerns Assessment Noted Time PHQ-2 Depression Total Score: 1 02/15/20 24 10:24 AM EDT documented as of this encounter Care Teams Rf Microwave Engineer Relationship Specialty Start Date End Date Armani Campa MD [address] [place] [address] PCP - General Family Medicine 12/25/21 documented as of this encounter
--- OUTSIDE RECORDS SUMMARY | 2025-02-02 11:03 | XMS_ITS ---
Author Organization [facility] Address [address] [place] [address] Care Team Providers Care Security Software Engineer Name Role Phone Armani Campa MD Primary Care Provider [phone] Kylee James APRN Unavailable [phone] Faustino Topete MD Unavailable [phone] Active Problems Problem Noted Date Diagnosed Date [...]
--- OUTSIDE RECORDS SUMMARY | 2025-02-02 11:03 | XMS_ITS | Encounter Summary ---
Author Organization [facility] Address [address] [place] [address] Care Team Providers Care Food Services Manager Name Role Phone Armani Campa MD Primary Care Provider [phone] Kylee James APRN Unavailable [phone] Faustino Topete MD Unavailable [phone] Encounter Details Date Type Department Care Team (Late st Contact Info) Description 01/15/2025 Telephone [facility] [address] [place] [address] Daxa Schultz, foreign language interpreter Social History Tobacco Use Types Packs/Day Years [...] drink first t volodymyr in the morning (EYE-TRAFFIC TECHNICIAN) to steady your nerves or to get [...] as of this encounter Care Teams Food Services Manager Relationship Specialty Start Date End Date Armani Campa MD [address] [place] [address] PCP - General 10/19/22 Kylee James APRN [address] [address] Nurse Practitioner Medical Oncology 03/30/23 Faustino Topete MD [address] [address] Consulting Physician Medical Oncology 12/01/23 documented as of this encounter
--- OUTSIDE RECORDS SUMMARY | 2025-02-02 11:03 | XMS_ITS | Encounter Summary ---
Author Organization [facility] Address [address] [place] [address] Care Team Providers Care Special Events Driver Name Role Phone Armani Campa MD Primary Care Provider [phone] Kylee James APRN Unavailable [phone] Faustino Ruano MD Unavailable [phone] Encounter Details Date Type Department Care Team (Late st Contact Info) Description 11/13/2024 Telephone [facility] [address] [place] [address] Faustino Ruano MD 800 [facility] [address] [place] [address] Social History Tobacco Use Types [...] drink first t volodymyr in the morning (EYE-ABSTRACT WRITER) to steady your nerves or to [...] was left IVF order sent in to [facility] and noted dr ruano's message on the serotonin level * Telephone Encounter - Leticia Bowen - 11/13/2024 12:18 PM EDT Melody not listed on pts preferred contacts, no answer from pt. * Telephone Encounter - Fransisca Jasso - 11/13/2024 11:39 AM EDT Patient Phone Message Reason for Call: Melody was worried about her serotonin level and IV fluids in her hometown [facility]- Can you Melody back? Best contact number and optimal time of day to reach caller: [phone] Note: Please do not reply to this message. Follow-up communication and further actions as a result of this message need to be communicated with the patient directly, if the patient is not active onMyChart. If the patient is active on MyChart, they will receive notification of the communication/outcome via [employer]. documented in this encounter Plan of Treatment [...] documented as of this encounter Care Teams Special Events Driver Relationship Specialty Start Date End Date Armani Campa MD [address] [place] [address] PCP - General 10/19/22 Kylee James APRN [address] [place] Cheung [address] [address] Nurse Practitioner Medical Oncology 03/30/23 Faustino Ruano MD [address] [place] Cheung [address] [address] Consulting Physician Medical Oncology 12/01/23 documented as of this encounter
--- OUTSIDE RECORDS SUMMARY | 2025-02-02 11:03 | XMS_ITS | Encounter Summary ---
Author Organization [facility] Address [address] [place] [address] Care Team Providers Care Chisel Trimmer Name Role Phone Armani Campa MD Primary Care Provider + Encounter Details Date Type Department Care Team (Late st Contact Info) Description 10/11/2024 Results Follow-Up [facility] [address] [place] [address] Armani Campa MD [address] [place] [address] Social History Tobacco Use Types [...] Description 02/15/2025 3:15 PM EDT Office Visit [facility] [address] [place] [address] Armani Campa MD 210 [facility] [place] [address] documented as of this encounter Visit Diagnoses Not on filedocumented in this encounter Additional Health Concerns Assessment Noted Time PHQ-2 Depression Total Score: 1 02/15/20 24 10:24 AM EDT documented as of this encounter Care Teams Chisel Trimmer Relationship Specialty Start Date End Date Armani Campa MD [address] [place] [address] PCP - General Family Medicine 12/25/21 documented as of this encounter
--- OUTSIDE RECORDS SUMMARY | 2025-02-02 11:03 | XMS_ITS | Clinical Summary ---
Author Organization [facility] Address [address] [place] [address] Care Team Providers Care Winderman Name Role Phone Armani Campa MD Primary [...] fracture 12/25/2021 Overactive bladder 12/25/2021 Hypokalemia 12/25/2021 long term care administrator (current) use of n on-steroidal anti-inflammatories (nsaid) 12/25/2021 Encounters Date Type Department Care Team Description 11/07/2024 Telephone [facility] [address] [place] [address] Armani Campa MD MEDICATION ISSUE 11/06/2024 Telephone [facility] [address] [place] [address] Armani Campa MD Med Management 11/06/2024 Refill [facility] [address] [place] [address] Armani Campa MD 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 [place] [address] Armani Campa MD New Med Request [...] Description 02/15/2025 3:15 PM EDT Office Visit [facility] [address] [place] [address] Armani Campa MD [address] [place] [address] Health Maintenance Due Date Last Done Comments [...] Documents on File Type Date Recorded Patient Recreational Resort Manager Expl anation LIVING WILL - SCAN 01/28/2022 11:09 AM [facility]ATE, [facility], 05/20/2021 Care Teams Winderman Relationship Specialty Start Date End Date Armani Campa MD [address] [place] [address] PCP - General Family Medicine 12/25/21
--- OUTSIDE RECORDS SUMMARY | 2025-02-02 11:03 | XMS_ITS | Clinical Summary ---
Author Organization [facility] Address [address] [place] [address] Care Team Providers Care Photographic Equipment Inspector Name Role Phone Armani Campa MD Primary Care Provider [phone] Kylee James APRN Unavailable [phone] Faustino Topete MD Unavailable [phone] Allergies No known active allergies Medications alendronate [...] (diarrhea). 90 mL 5 11/22/19 25 Active [place] 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) 12/05/2024 Travel 11/29/2024 Refill [facility] [address] [place] [address] Marlin Guevara, PharmD 11/21/2024 Telephone [facility] [address] [place] [address] Noble Burrell, PharmD new start 11/21/2024 Refill [facility] [address] [place] [address] Faustino Topete MD Malignant neuroendocrine neoplasm (CMS/HCC) 11/15/2024 Orders Only [facility] [address] [place] [address] Faustino Topete MD 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) 11/13/2024 Telephone [facility] [address] [place] [address] Faustino Topete MD 11/10/2024 2:00 PM EDT Office Visit [facility] [address] [place] [address] Faustino Topete MD 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 0 12/02/2023 CAGE Questionnaire Score 0 024 Utilities Answer Date Recorded In the past 12 months has th [employer], gas, oil, or water company threatened to [...] Years (1 of 2 - PCV) 1964 [id number] Vaccine ( season) 2024 03/12/2024, 03/12/2023, 03/11/2022, [...] 1622(H) <93 ng/mL 11/14/2024 6:56 PM EDT [facility] ([facility]) Comment: Impaired renal or hepatic function or treatment with proton pump inhibitors may result in artifactual elevations of Chromogranin A. ADDITIONAL INFORMATION The testing method is a homogeneous time-resolved immunofluorescent assay manufactured by [employer] and performed on the [employer] Tian Kryptor Compact Plus. Values obtained with different [...] examination and other findings. Test Performed by: [place] [address] Slubber Tender: David Hawkins Ph.D.; CLIA# [id number] Blood Venous blood specimen / Unknown Venipuncture / Unknown 11/10/2024 4:02 PM EDT 11/10/2024 4:19 PM EDT us Faustino Topete MD LAB BLOOD ORDERABLES Final R esult [facility] ([facility]) * (ABNORMAL) 5-HIAA, Plasma (11/10/2024 4:02 PM EDT) Pathologist [facility] Fasting greater than or equal to 8 hours? Yes 11/23/2024 4:20 PM EDT [facility] 5-Hydroxyindole acetic Acid (HIAA), Plasma 58(H) <=22 ng/ml 11/23/2024 4:20 PM EDT [facility] ([facility]) Blood Venous blood specimen / Unknown Venipuncture / Unknown 11/10/2024 4:02 PM EDT 11/10/2024 4:12 PM EDT Narrative [facility] ([facility]) - 11/23/2024 4:20 PM EDT This GCMS assay was developed and its performance characteristics determined by [employer]. It has not been cleared or approved by the FDA and such approval or clearance is not required at this time. Values obtained with different methods, different laboratories or with kits cannot be used interchangeably with the results on this report. The results cannot be interpreted as absolute evidence of the presence or absence of malignant disease. Performed By: [employer] [address] [place] [address]<lb> us Faustino Topete MD LAB BLOOD ORDERABLES Final R esult [facility] ([facility]) [facility] [address] [place] [address] * (ABNORMAL) CBC and differential (11/10/2024 4:02 PM EDT) Pathologist [facility] WBC Count 6.30 3.70 - 10.30 10*3/uL [...] R esult [facility] [address] [place] [address] * (ABNORMAL) Serotonin, Serum (11/10/2024 4:02 PM EDT) SEROTONIN 1449(H) 50 - 220 ng/mL 11/13/2024 6:02 AM EDT [facility] ([facility]) Serum Venous blood specimen / Unknown 11/10/2024 4:02 PM EDT 11/10/2024 4:18 PM EDT Narrative [facility] ([facility]) - 11/13/2024 6:02 AM EDT TEST INFORMATION: Serotonin, Serum This test was developed and its performance characteristics determined by [employer]. It has not been cleared or approved by the [place] Food and Drug Administration. This test was performed in a CLIA certified laboratory and is intended for clinical purposes. Performed By: [employer] [address] [place] [id number] Photographic Equipment Technician: Kurt Borges MD, PhD CLIA Number: [id number] Faustino Topete MD LAB BLOOD ORDERABLES Final R esult [facility] ([facility]) [address] [place] [address] * (ABNORMAL) Magnesium (11/10/2024 4:02 PM EDT) Magnesium, Plasma 1.5(L) 1.9 - 2.4 mg/dL 11/10/2024 4:51 PM EDT [facility] Blood Venous blood specimen / Unknown Venipuncture / Unknown 11/10/2024 4:02 PM EDT 11/10/2024 4:18 PM EDT Faustino Topete MD LAB BLOOD ORDERABLES Final R esult [facility] [address] [place] [address] * (ABNORMAL) Comprehensive metabolic panel (11/10/2024 4:02 [...] ORDERABLES Final R esult Performing Organization Address City/State/[facility] Co de Phone Number [facility] [address] [place] [address] from Last 3 Months Insurance [employer] MEDICARE [...] Patient has decision-making capacity? Yes Care Teams Photographic Equipment Inspector Relationship Specialty Start Date End Date Armani Campa MD [address] [place] [address] PCP - General 10/19/22 Kylee James APRN [address] [place] [address] [place] [address] Nurse Practitioner Medical Oncology 03/30/23 Faustino Topete MD [address] [place] [address] Consulting Physician Medical Oncology 12/01/23
--- OUTSIDE RECORDS SUMMARY | 2025-02-02 11:03 | XMS_ITS | Encounter Summary ---
Author Organization [facility] Address [address] [place] [address] Care Team Providers Care Dice Table Person Name Role Phone Armani Campa MD Primary Care Provider [phone] Kylee James APRN Unavailable [phone] Faustino Topete MD Unavailable Reason for Visit * Reason Onset Date Comments new start 11/21/2024 Encounter Details Date Type Department Care Team (Late st Contact Info) Description 11/21/2024 Telephone [facility] [address] [place] [address] Noble Burrell, PharmD Social History Tobacco Use [...] drink first t volodymyr in the morning (EYE-GREEN MARKETING ANALYST) to steady your nerves or to get [...] documented as of this encounter Care Teams Dice Table Person Relationship Specialty Start Date End Date Armani Campa MD [address] [place] [address] PCP - General 10/19/22 Kylee James APRN [address] [address] Nurse Practitioner Medical Oncology 03/30/23 Faustino Topete MD [address] [place] [address] [address] Consulting Physician Medical Oncology 12/01/23 documented as of this encounter
--- OUTSIDE RECORDS SUMMARY | 2025-02-02 11:03 | XMS_ITS | Encounter Summary ---
Author Organization [facility] Address [address] [place] [address] Care Team Providers Care Adult Educator Name Role Phone Armani Campa MD Primary Care Provider + Reason for Visit * Reason Comments Med Refill Encounter Details Date Type Department Care Team (Late st Contact Info) Description 04/01/2023 Refill [facility] [address] [place] [address] Armani Campa MD [address] [place] [address] Primary osteoarthritis of right knee [...] Visit [facility] [address] [place] [phone] Armani Campa MD [address] [place] [address] documented as of this encounter Visit Diagnoses Diagnosis Primary osteoarthritis of right knee documented in this encounter Care Teams Adult Educator Relationship Specialty Start Date End Date Armani Campa MD [address] [place] [address] PCP - General Family Medicine 12/25/21 documented as of this encounter
--- OUTSIDE RECORDS SUMMARY | 2025-02-02 11:03 | XMS_ITS | Encounter Summary ---
Author Organization [facility] Address [address] [place] [address] Care Team Providers Care Bricklayer Sewer Name Role Phone Armani Campa MD Primary Care Provider [phone] Kylee James APRN Unavailable [phone] Faustino Topete MD Unavailable [phone] Encounter Details Date Type Department Care Team [...] drink first t volodymyr in the morning (EYE-TELEPHONIC RN) to steady your nerves or to get rid of a hangover? 0 12/02/2023 CAGE Questionnaire Score 0 024 Utilities Answer Date Recorded In the past 12 months has th e [employer], gas, oil, or water [employer] threatened to shut off services in your [...] as of this encounter Care Teams Bricklayer Sewer Relationship Specialty Start Date End Date Armani Campa MD [address] [place] [address] PCP - General 10/19/22 Kylee James APRN [address] [address] Nurse Practitioner Medical Oncology 03/30/23 Faustino Topete MD [address] [address] Consulting Physician Medical Oncology 12/01/23 documented as of this encounter
[2025-02-02] MEDS: 0.9 % SODIUM CHLORIDE 1000ML 1,000 ML 999 ML IV (11:08)
[2025-02-02] MEDS: SODIUM CHLORIDE 0.9% 10ML FLUSH SYRINGE 10 ML IV (11:09)
[2025-02-02 11:35] VITALS: BP 142/76; PULSE 75; RESP 20; TEMP 36.6; O2SAT 96
[2025-02-02 12:05] VITALS: BP 138/70; PULSE 79; RESP 20; O2SAT 97
[2025-02-02 12:25] VITALS: BP 141/77; PULSE 72; RESP 20; O2SAT 97
== END 2025-02-02 12:27 | disposition home or self-care (01) ==
LOC: INF 11:00
PROVIDERS: PCP Family Medicine; Visit Provider Internal Medicine Hematology & Oncology
DX: C7A.019 Malignant carcinoid tumor of the small intestine, unspecified portion (principal)
CPT/HCPCS: 96360; J7030

== ENCOUNTER 2025-02-09 10:49 | Outpatient (CLI) | payer MEDICARE, SELFPAY ==
--- OUTSIDE RECORDS SUMMARY | 2025-02-09 10:51 | XMS_ITS | Clinical Summary ---
Author Organization [facility] Address [address] [place] [address] Care Team Providers Care Convalescent Sitter Name Role Phone Armani Campa MD Primary [...] fracture 12/25/2021 Overactive bladder 12/25/2021 Hypokalemia 12/25/2021 nursing home (current) use of n on-steroidal anti-inflammatories (nsaid) 12/25/2021 Immunizations Immunization Administration Dates Next Due Arexvy [...] 02/15/2025 3:15 PM EDT Office Visit [facility] [address] [facility] [place] [address] Armani Campa MD [address] [address] Health Maintenance Due Date Last Done Comments DXA SCAN 01/29/2024 01/28/2022, 01/28/2022 COVID-19 Vaccine (6 - 2023-2 5 season) 2025 03/12/2024, 03/12/2023, 03/11/2022, Additional history exists ANNUAL [...] Most Recently Relevant to Health Maintenance Insurance [facility] MEDICARE ADVANTAGE HMO Advance Directives Documents on File Type Date Recorded Patient Abstracter Expl anation LIVING WILL - SCAN 01/28/2022 11:09 AM [facility] SURROGATE, [facility], 05/20/2021 Care Teams Convalescent Sitter Relationship Specialty Start Date End Date Armani Campa MD [address] [facility] [place] [address] PCP - General Family Medicine 12/25/21
--- OUTSIDE RECORDS SUMMARY | 2025-02-09 10:51 | XMS_ITS ---
Author Organization [facility] Address [address] [place] [address] Care Team Providers Care Lithographic Stripper Name Role Phone Armani Campa MD Primary Care Provider [phone] Kylee James APRN Unavailable [phone] Faustino Topete MD Unavailable [phone] Active Problems Problem Noted Date Diagnosed Date [...]
--- OUTSIDE RECORDS SUMMARY | 2025-02-09 10:51 | XMS_ITS | Encounter Summary ---
Author Organization [facility] Address [address] [place] [address] Care Team Providers Care Life Enrichment Manager Name Role Phone Armani Campa MD Primary Care Provider [phone] Kylee James APRN Unavailable [phone] Faustino Ruano MD Unavailable [phone] Encounter Details Date Type Department Care Team (Late st Contact Info) Description 11/13/2024 Telephone [facility] [address] [place] [address] Faustino Ruano MD 800 [facility] [address] [place] [address] Social History Tobacco Use Types [...] place to sleep or slept in a long-term (including now)? No 12/01/2023 CAGE ASSESSMENT Answer [...] drink first t volodymyr in the morning (EYE-GROUND WATER CONTRACTOR) to steady your nerves or to get [...] Score 0 12/05/2024 10:38 AM EDT Llnoamit Aarmisanita Ashish T documented as of this encounter Miscellaneous Notes * Telephone Encounter - Jacquelin Tobias RN - 11/15/2024 4:48 PM EDT Msg was left IVF order sent in to [facility] and noted dr ruano's message on the serotonin level * Telephone Encounter - Leticia Bowen - 11/13/2024 12:18 PM EDT Melody not listed on pts preferred contacts, no answer from pt. * Telephone Encounter - Fransisca Jasso - 11/13/2024 11:39 AM EDT Patient Phone Message Reason for Call: Melody was worried about her serotonin level and IV fluids in her hometown [facility]- Can you Melody back? Best contact number and optimal time of day to reach caller: [phone] Note: Please do not reply to this message. Follow-up communication and further actions as a result of this message need to be communicated with the patient directly, if the patient is not active onMyChart. If the patient is active on MyChart, they will receive notification of the communication/outcome via Openfoliohart. documented in this encounter Plan of Treatment [...] documented as of this encounter Care Teams Life Enrichment Manager Relationship Specialty Start Date End Date Armani Campa MD [address] [place] [address] PCP - General 10/19/22 Kylee James APRN [address] Rosemarie Cheung [address] [address] Nurse Practitioner Medical Oncology 03/30/23 Faustino Ruano MD [address] Rosemarie Cheung [address] [address] Consulting Physician Medical Oncology 12/01/23 documented as of this encounter
--- OUTSIDE RECORDS SUMMARY | 2025-02-09 10:51 | XMS_ITS | Encounter Summary ---
Author Organization [facility] Address [address] [place] [address] Care Team Providers Care Figurine Maker Name Role Phone Armani Campa MD Primary Care Provider + Encounter Details Date Type Department Care Team (Late st Contact Info) Description 10/11/2024 Results Follow-Up [facility] [address] [place] [address] Armani Campa MD [address] [place] [address] Social History Tobacco Use Types [...] [facility] [address] [place] [address] Armani Campa MD [address] [facility] [place] [address] documented as of this encounter Visit Diagnoses Not on filedocumented in this encounter Additional Health Concerns Assessment Noted Time PHQ-2 Depression Total Score: 1 02/15/20 24 10:24 AM EDT documented as of this encounter Care Teams Figurine Maker Relationship Specialty Start Date End Date Armani Campa MD [address] [place] [address] PCP - General Family Medicine 12/25/21 documented as of this encounter
--- OUTSIDE RECORDS SUMMARY | 2025-02-09 10:51 | XMS_ITS | Encounter Summary ---
Author Organization [facility] Address [address] [place] [address] Care Team Providers Care Flight Dynamicist Name Role Phone Armani Campa MD Primary Care Provider [phone] Kylee James APRN Unavailable [phone] Faustino Topete MD Unavailable [phone] Encounter Details Date Type Department Care Team (Late st Contact Info) Description 01/15/2025 Telephone [facility] [address] [place] [address] Daxa Schultz, formulation chemist Social History Tobacco Use Types Packs/Day Years [...] drink first t volodymyr in the morning (EYE-JUKEBOX COIN COLLECTOR) to steady your nerves or to get [...] documented as of this encounter Care Teams Flight Dynamicist Relationship Specialty Start Date End Date Armani Campa MD [address] [place] [address] PCP - General 10/19/22 Kylee James APRN [address] [address] Nurse Practitioner Medical Oncology 03/30/23 Faustino Topete MD [address] [address] Consulting Physician Medical Oncology 12/01/23 documented as of this encounter
--- OUTSIDE RECORDS SUMMARY | 2025-02-09 10:51 | XMS_ITS | Encounter Summary ---
Author Organization [facility] Address [address] [place] [address] Care Team Providers Care Generation Manager Name Role Phone Armani Campa MD Primary Care Provider + Encounter Details Date Type Department Care Team (Late st Contact Info) Description 08/15/2024 Results Follow-Up [facility] [address] [place] [address] Armani Campa MD [address] [place] [address] Social History Tobacco Use Types [...] 02/15/2025 3:15 PM EDT Office Visit [facility] [address] [place] [address] Armani Campa MD [address] [facility] [address] documented as of this encounter Visit Diagnoses Not on filedocumented in this encounter Additional Health Concerns Assessment Noted Time PHQ-2 Depression Total Score: 1 02/15/20 24 10:24 AM EDT documented as of this encounter Care Teams Generation Manager Relationship Specialty Start Date End Date Armani Campa MD [address] [place] [address] PCP - General Family Medicine 12/25/21 documented as of this encounter
--- OUTSIDE RECORDS SUMMARY | 2025-02-09 10:51 | XMS_ITS | Encounter Summary ---
Author Organization [facility] Address [address] [place] [address] Care Team Providers Care Women'S Garment Fitter Name Role Phone Armani Campa MD Primary Care Provider [phone] Kylee James APRN Unavailable [phone] Faustino Topete MD Unavailable [phone] Reason for Visit * Reason Onset Date Comments new start 11/21/2024 Encounter Details Date Type Department Care Team (Late st Contact Info) Description 11/21/2024 Telephone [facility] [address] [place] [address] Noble Burrell, PharmD Social History Tobacco Use [...] drink first t volodymyr in the morning (EYE-FASHION BUYING INTERNSHIP) to steady your nerves or to get [...] documented as of this encounter Care Teams Women'S Garment Fitter Relationship Specialty Start Date End Date Armani Campa MD [address] [place] [address] PCP - General 10/19/22 Kylee James APRN [address] [address] Nurse Practitioner Medical Oncology 03/30/23 Faustino Topete MD [address] [place] Rosemar[address] Cheung [address] [address] Consulting Physician Medical Oncology 12/01/23 documented as of this encounter
--- OUTSIDE RECORDS SUMMARY | 2025-02-09 10:51 | XMS_ITS | Clinical Summary ---
Author Organization [facility] Address [address] [place] [address] Care Team Providers Care Sample Tester Name Role Phone Armani Campa MD Primary Care Provider [phone] Kylee James APRN Unavailable [phone] Faustino Topete MD Unavailable [phone] Allergies No known active allergies Medications alendronate [...] (diarrhea). 90 mL 5 11/22/19 25 Active [place] [facility] Please dispense appropriate needles and syringes for octreotide injection 90 each 3 11/30/19 25 Active UltiCare Insulin Syringe 31G X 10/13 0.3 ML [facility] 12/05/19 25 Active KLOR-CON 20 [...] Type Department Care Team Description 01/15/2025 Telephone [facility] [address] [place] [address] Daxa Schultz CPhT 12/05/2024 10:30 AM EDT Office Visit [facility] Multidisciplinary Oncology Clinic [address] [place] [address] Shannon Aguero APRN 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) 12/05/2024 Travel 11/29/2024 Refill [facility] [address] [place] [address] Marlin Guevara, PharmD 11/21/2024 Telephone [facility] [address] [place] [address] Noble Burrell, PharmD new start 11/21/2024 Refill [facility] [address] [place] [address] Faustino Topete MD Malignant neuroendocrine neoplasm (CMS/HCC) 11/15/2024 Orders Only [facility] Multidisciplinary Oncology Clinic [address] [place] [address] Faustino Topete MD 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) 11/13/2024 Telephone [facility] Multidisciplinary Oncology Clinic [address] [place] [address] Faustino Topete MD 11/10/2024 2:00 PM EDT Office Visit [facility] Multidisciplinary Oncology Clinic [address] [place] [address] Faustino Topete MD 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 0 12/02/2023 CAGE Questionnaire Score 0 024 Utilities Answer Date Recorded In the past 12 months has th [employer], gas, oil, or water company threatened [...] Years (1 of 2 - PCV) 1964 [id number] Vaccine ( season) 2025 03/12/2024, 03/12/2023, 03/11/2022, Additional history exists UKY-Influenza [...] 1622(H) <93 ng/mL 11/14/2024 6:56 PM EDT [facility] ([facility]) Comment: Impaired renal or hepatic function or treatment with proton pump inhibitors may result in artifactual elevations of Chromogranin A. ADDITIONAL INFORMATION The testing method is a homogeneous time-resolved immunofluorescent assay manufactured by [employer] and performed on the [employer] Kryptor Compact Plus. Values obtained with different [...] examination and other findings. Test Performed by: [place] [address] Puppy Sitter: David Hawkins Ph.D.; CLIA# [id number] Blood Venous blood specimen / Unknown Venipuncture / Unknown 11/10/2024 4:02 PM EDT 11/10/2024 4:19 PM EDT us Faustino Topete MD LAB BLOOD ORDERABLES Final R esult [facility] * (ABNORMAL) 5-HIAA, Plasma (11/10/2024 4:02 PM EDT) Pathologist [facility] Fasting greater than or equal to 8 hours? Yes 11/23/2024 4:20 PM EDT [facility] 5-Hydroxyindole acetic Acid (HIAA), Plasma 58(H) <=22 ng/ml 11/23/2024 4:20 PM EDT [facility] Blood Venous blood specimen / Unknown Venipuncture / Unknown 11/10/2024 4:02 PM EDT 11/10/2024 4:12 PM EDT Narrative [facility] ([facility]) - 11/23/2024 4:20 PM EDT This GCMS assay was developed and its performance characteristics determined by [facility]. It has not been cleared or approved by the FDA and such approval or clearance is not required at this time. Values obtained with different methods, different laboratories or with kits cannot be used interchangeably with the results on this report. The results cannot be interpreted as absolute evidence of the presence or absence of malignant disease. Performed By: [facility] [address] [place] [address]<lb> us Faustino Topete MD LAB BLOOD ORDERABLES Final R esult [facility] ([facility]) [facility] [address] [place] [address] * (ABNORMAL) CBC and differential (11/10/2024 4:02 PM EDT) Pathologist [facility] WBC Count 6.30 3.70 - 10.30 10*3/uL LAB HEMATOLOGY METHOD 11/10/2024 5:55 PM EDT [facility] RBC Count 4.67 3.90 - 5.20 10*6/uL LAB HEMATOLOGY METHOD 11/10/2024 5:55 PM EDT [facility] HGB 11.7 11.2 - 15.7 g/dL LAB HEMATOLOGY METHOD 11/10/2024 5:55 PM EDT [facility] HCT 37.8 34.0 - 45.0 % LAB HEMATOLOGY METHOD 11/10/2024 5:55 PM EDT [facility] Platelet Count 138(L) 155 - 369 10*3/uL LAB HEMATOLOGY METHOD 11/10/2024 5:55 PM EDT [facility] MCV 81 79 - 98 fL LAB HEMATOLOGY METHOD 11/10/2024 5:55 PM EDT [facility] MCH 25.1(L) 26.0 - 32.0 pg LAB HEMATOLOGY METHOD 11/10/2024 5:55 PM EDT [facility] MCHC 31.0 30.7 - 35.5 g/dL LAB HEMATOLOGY METHOD 11/10/2024 5:55 PM EDT [facility] RDW 16.1(H) 11.5 - 14.5 % LAB HEMATOLOGY METHOD 11/10/2024 5:55 PM EDT [facility] MPV LAB HEMATOLOGY METHOD 11/10/2024 5:55 PM EDT [facility] Comment:Not Measured nRBC 0.0 <=0.0 per 100 WBCs LAB HEMATOLOGY METHOD 11/10/2024 5:55 PM EDT [facility] Differential Type Automated LAB HEMATOLOGY METHOD 11/10/2024 5:55 PM EDT [facility] Neutrophils % 75 % LAB HEMATOLOGY METHOD 11/10/2024 5:55 PM EDT [facility] Lymphocytes % 15 % LAB HEMATOLOGY METHOD 11/10/2024 5:55 PM EDT [facility] Monocytes % 9 % LAB HEMATOLOGY METHOD 11/10/2024 5:55 PM EDT [facility] Eosinophils % 1 % LAB HEMATOLOGY METHOD 11/10/2024 5:55 PM EDT [facility] Basophils % 0 % LAB HEMATOLOGY METHOD 11/10/2024 5:55 PM EDT [facility] Immature Granulocytes % 0 % LAB HEMATOLOGY METHOD 11/10/2024 5:55 PM EDT [facility] Neutrophils Absolute 4.69 1.60 - 6.10 10*3/uL LAB HEMATOLOGY METHOD 11/10/2024 5:55 PM EDT [facility] Lymphocytes Absolute 0.95(L) 1.20 - 3.90 10*3/uL LAB HEMATOLOGY METHOD 11/10/2024 5:55 PM EDT [facility] Monocytes Absolute 0.54 0.30 - 0.90 10*3/uL LAB HEMATOLOGY METHOD 11/10/2024 5:55 PM EDT [facility] Eosinophils Absolute 0.08 0.00 - 0.50 10*3/uL LAB HEMATOLOGY METHOD 11/10/2024 5:55 PM EDT [facility] Basophils Absolute 0.02 0.00 - 0.10 10*3/uL LAB HEMATOLOGY METHOD 11/10/2024 5:55 PM EDT [facility] Immature Granulocytes Absolute 0.02 0.00 - 0.06 10*3/uL LAB HEMATOLOGY METHOD 11/10/2024 5:55 PM EDT [facility] Blood Venous blood specimen / Unknown Venipuncture / Unknown 11/10/2024 4:02 PM EDT 11/10/2024 4:27 PM EDT Narrative [facility] - 11/10/2024 5:55 PM EDT Therapeutic decision making should be based on absolute values, rather than percentages. Faustino Topete MD LAB BLOOD ORDERABLES Final R esult [facility] [address] [place] [address] * (ABNORMAL) Serotonin, Serum (11/10/2024 4:02 PM EDT) SEROTONIN 1449(H) 50 - 220 ng/mL 11/13/2024 6:02 AM EDT [facility] ([facility] Serum Venous blood specimen / Unknown 11/10/2024 4:02 PM EDT 11/10/2024 4:18 PM EDT Narrative [facility] ([facility] - 11/13/2024 6:02 AM EDT TEST INFORMATION: Serotonin, Serum This test was developed and its performance characteristics determined by [facility]. It has not been cleared or approved by the [place] Food and Drug Administration. This test was performed in a CLIA certified laboratory and is intended for clinical purposes. Performed By: [facility] [address] [place] [id number] Melter Caster: Kurt Borges MD, PhD CLIA Number: [id number] Faustino Topete MD LAB BLOOD ORDERABLES Final R esult [facility] ([facility] [address] [place] [address] * (ABNORMAL) Magnesium (11/10/2024 4:02 PM EDT) Magnesium, Plasma 1.5(L) 1.9 - 2.4 mg/dL 11/10/2024 4:51 PM EDT [facility] Blood Venous blood specimen / Unknown Venipuncture / Unknown 11/10/2024 4:02 PM EDT 11/10/2024 4:18 PM EDT Faustino Topete MD LAB BLOOD ORDERABLES Final R esult [facility] [address] [place] [address] * (ABNORMAL) Comprehensive metabolic panel (11/10/2024 4:02 PM EDT) Glucose, Plasma 92 74 - 99 mg/dL 11/10/2024 4:51 PM EDT [facility] BUN, Plasma 14 8 - 23 mg/dL 11/10/2024 4:51 PM EDT [facility] Creatinine, Plasma 0.57(L) 0.60 - 1.10 mg/dL 11/10/2024 4:51 PM EDT [facility] BUN/Creatinine Ratio 25 11/10/2024 4:51 PM EDT [facility] Sodium, Plasma 141 136 - 145 mmol/L 11/10/2024 4:51 PM EDT [facility] Potassium, Plasma 3.4(L) 3.6 - 4.9 mmol/L 11/10/2024 4:51 PM EDT [facility] Chloride, Plasma 106 97 - 107 mmol/L 11/10/2024 4:51 PM EDT [facility] CO2, Plasma 21(L) 22 - 29 mmol/L 11/10/2024 4:51 PM EDT [facility] Anion Gap 14 6 - 16 mmol/L 11/10/2024 4:51 PM EDT [facility] Total Calcium, Plasma 8.6(L) 8.9 - 10.2 mg/dL 11/10/2024 4:51 PM EDT [facility] Total Protein 7.4 6.3 - 7.9 g/dL 11/10/2024 4:51 PM EDT [facility] Albumin, Plasma 3.8 3.5 - 5.2 g/dL 11/10/2024 4:51 PM EDT [facility] AST, Plasma 36(H) 10 - 35 U/L 11/10/2024 4:51 PM EDT [facility] ALT, Plasma 20 10 - 35 U/L 11/10/2024 4:51 PM EDT [facility] Alkaline Phosphatase, Plasma 98 46 - 142 U/L 11/10/2024 4:51 PM EDT [facility] Total Bilirubin, Plasma 0.3 0.2 - 1.1 mg/dL 11/10/2024 4:51 PM EDT [facility] eGFRcr 91.4 mL/min/1.7 3m*2 11/10/2024 4:51 PM EDT [facility] Comment:Reported eGFRcr in m L/min/1.73m2 is based the CKD-EPI 2020 equation that does not use a race coefficient. Blood Venous blood specimen / Unknown Venipuncture / Unknown 11/10/2024 4:02 PM EDT 11/10/2024 4:18 PM EDT us Faustino Topete MD LAB BLOOD ORDERABLES Final R esult Performing Organization Address City/State/[facility] Co de Phone Number [facility] [address] [place] [address] from Last 3 Months Insurance [employer] MEDICARE [...] Patient has decision-making capacity? Yes Care Teams Sample Tester Relationship Specialty Start Date End Date Armani Campa MD [address] [place] [address] PCP - General 10/19/22 Kylee James APRN [address] [place] [address] [place] [phone] Nurse Practitioner Medical Oncology 03/30/23 Faustino Topete MD [address] [place] [address] [place] [address] Consulting Physician Medical Oncology 12/01/23
--- OUTSIDE RECORDS SUMMARY | 2025-02-09 10:52 | XMS_ITS | Encounter Summary ---
Author Organization [facility] Address [address] [place] [address] Care Team Providers Care Marble Mechanic Helper Name Role Phone Armani Campa MD Primary Care Provider + Reason for Visit * Reason Comments Med Refill Encounter Details Date Type Department Care Team (Late st Contact Info) Description 04/01/2023 Refill [facility] [address] [place] [address] Armani Campa MD [address] [place] [address] Primary osteoarthritis of right knee [...] Description 02/15/2025 3:15 PM EDT Office Visit [facility] [address] [place] [phone] Armani Campa MD [address] [place] [address] documented as of this encounter Visit Diagnoses Diagnosis Primary osteoarthritis of right knee documented in this encounter Care Teams Marble Mechanic Helper Relationship Specialty Start Date End Date Armani Campa MD [address] [place] [address] PCP - General Family Medicine 12/25/21 documented as of this encounter
[2025-02-09] MEDS: 0.9 % SODIUM CHLORIDE 1000ML 1,000 ML 999 ML IV (10:58)
[2025-02-09 11:00] VITALS: BP 132/74; PULSE 70; RESP 18; TEMP 36.8; O2SAT 99
[2025-02-09 12:11] VITALS: BP 143/83; PULSE 75; RESP 18; O2SAT 98
== END 2025-02-09 12:13 | disposition home or self-care (01) ==
LOC: INF 10:49
PROVIDERS: PCP Family Medicine; Visit Provider Internal Medicine Hematology & Oncology
DX: C7A.019 Malignant carcinoid tumor of the small intestine, unspecified portion (principal); C7B.02 Secondary carcinoid tumors of liver
CPT/HCPCS: 96360; 96365; J7030

== ENCOUNTER 2025-02-16 10:42 | Outpatient (CLI) | payer MEDICARE, SELFPAY ==
--- OUTSIDE RECORDS SUMMARY | 2025-02-15 15:15 | XMS_ITS | Encounter Summary ---
Author Organization [facility] Address [address] [place] [phone] Care Team Providers Care Agricultural Extension Specialist Name Role Phone Armani Campa MD Primary Care Provider + Reason for Referral * Consultation (Routine) - Authorized Specialty Diagnoses / Procedures Referred By Contac t Referred To Contact Otolaryngology Diagnoses Tinnitus, unspecified laterality Vertigo Procedures [place] OFFICE/OUTPATIENT NEW MODERATE MDM 45 MINUTES Armani Campa MD [address] [place] [address] Phone: tel: fax: Euseboi Whitmore MD [address] [facility] [address] [place] [address] Phone: tel: fax: Referral ID Status Reason Start Date Expiration Date Visits Requested Visits Authorized [id number] Authorized Specialty Services Required 02/15/2025 05/17/2026 1 1 Reason for Visit * Reason Comments Medicare Wellness-subsequent Encounter Details Date Type Department Care Team (Late st Contact Info) Description 02/15/2025 3:15 PM EDT Office Visit [facility] [address] [place] [phone] Armani Campa MD [address] [facility] [place] [address] Hypokalemia (Primary Dx); Medicare annual [...] without current pathological fracture Overactive bladder Hypokalemia senior living (current) use of non-steroidal anti-inflammatories (nsaid) Neuroendocrine [...] Pneumococcal Vaccine 50+ Completed ZOSTER VACCINE Completed [facility] Preventative Services Quick Reference Risk Factors Identified During Encounter Hearing Problem: Referral to ENT ordered Immunizations Discussed/Encouraged: Influenza and COVID19 Chronic [facility] The above [...] Campa MD on 02/15/2025: Data reviewed : Calender Machine Operator Helper notes October 2024 Oncology Common labs 08/14/2024 [...] Description 08/13/2025 8:45 AM EDT Office Visit [facility] [address] [facility] [place] [address] Armani Campa MD [address] [place] [address] [place] [address] documented as of this encounter Visit Diagnoses [...] documented as of this encounter Care Teams Agricultural Extension Specialist Relationship Specialty Start Date End Date Armani Campa MD [address] [place] [address] PCP - General Family Medicine 12/25/21 documented as of this encounter
--- OUTSIDE RECORDS SUMMARY | 2025-02-16 10:44 | XMS_ITS | Clinical Summary ---
Author Organization [facility] Address [address] [place] [address] Care Team Providers Care Noc Analyst Name Role Phone Armani Campa MD Primary Care Provider [phone] Kylee [place] APRN Unavailable [phone] Faustino Topete MD Unavailable [phone] Allergies No known active allergies Medications alendronate [...] (diarrhea). 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) 12/05/2024 Travel 11/29/2024 Refill [facility] [address] [place] [address] Marlin Guevara, PharmD 11/21/2024 Telephone [facility] [address] [place] [phone] Noble Burrell, PharmD new start 11/21/2024 Refill [facility] [address] [place] [address] Faustino Toptee MD Malignant neuroendocrine neoplasm (CMS/HCC) from Last 3 Months Immunizations Immunization Administration Dates Next Due Influenza, high-dose, quadrivalent 03/11/2022 Joselo COVID-19 Vaccine (Blue Cap) 18+ 08/08/19 21 Moderna COVID-19 Vaccine (Bolt Man) 12+ years Moderna COVID-19 Vaccine Bivalent 6months+ [...] drink first t volodymyr in the morning (EYE-CAMOUFLAGE SPECIALIST) to steady your nerves or to [...] Years (1 of 2 - PCV) 1962 [id number] Vaccine ( season) 2025 03/12/2024, 03/12/2023, 03/11/2022, [...] Patient has decision-making capacity? Yes Care Teams Noc Analyst Relationship Specialty Start Date End Date Armani Campa MD [address] [place] [place] [address] PCP - General 10/19/22 Kylee [place] APRN [address] [place] Cheung [address] [phone] Nurse Practitioner Medical Oncology 03/30/23 Faustino Topete MD [address] [place] [address] [address] Consulting Physician Medical Oncology 12/01/23
--- OUTSIDE RECORDS SUMMARY | 2025-02-16 10:44 | XMS_ITS ---
Author Organization [facility] Address [address] [place] [address] Care Team Providers Care Oil Driller Name Role Phone Armani Campa MD Primary Care Provider [phone] Kylee [place] APRN Unavailable [phone] Faustino Topete MD Unavailable [phone] Active Problems Problem Noted Date Diagnosed Date [...]
--- OUTSIDE RECORDS SUMMARY | 2025-02-16 10:44 | XMS_ITS | Encounter Summary ---
Author Organization [facility] Address [address] [place] [address] Care Team Providers Care Independent Beauty Consultant Name Role Phone Armani Campa MD Primary Care Provider + Encounter Details Date Type Department Care Team (Late st Contact Info) Description 08/15/2024 Results Follow-Up [facility] [address] [place] [address] Armani Campa MD [address] [facility] [place] [address] Social History Tobacco Use Types [...] Description 08/13/2025 8:45 AM EDT Office Visit [facility] [address] [place] [address] Armani Campa MD [address] [facility] [place] [address] documented as of this encounter Visit Diagnoses Not on filedocumented in this encounter Additional Health Concerns Assessment Noted Time PHQ-2 Depression Total Score: 1 02/15/20 24 10:24 AM EDT documented as of this encounter Care Teams Independent Beauty Consultant Relationship Specialty Start Date End Date Armani Campa MD [address] [place] [address] PCP - General Family Medicine 12/25/21 documented as of this encounter
--- OUTSIDE RECORDS SUMMARY | 2025-02-16 10:44 | XMS_ITS | Encounter Summary ---
Author Organization [facility] Address [address] [place] [address] Care Team Providers Care Medical Lead Name Role Phone Armani Campa MD Primary Care Provider + Reason for Visit * Reason Comments Med Refill Encounter Details Date Type Department Care Team (Late st Contact Info) Description 04/01/2023 Refill [facility] [address] [place] [address] Armani Campa MD [address] [place] [address] Primary osteoarthritis of right knee [...] Description 08/13/2025 8:45 AM EDT Office Visit [facility] [address] [place] [address] Armani Campa MD [address] [place] [address] documented as of this encounter Visit Diagnoses Diagnosis Primary osteoarthritis of right knee documented in this encounter Care Teams Medical Lead Relationship Specialty Start Date End Date Armani Campa MD [address] [place] [address] PCP - General Family Medicine 12/25/21 documented as of this encounter
--- OUTSIDE RECORDS SUMMARY | 2025-02-16 10:44 | XMS_ITS | Encounter Summary ---
Author Organization [facility] Address [address] [place] [address] Care Team Providers Care Storage And Backup Administrator Name Role Phone Armani Campa MD Primary Care Provider [phone] Kylee [place] APRN Unavailable [phone] Faustino Topete MD Unavailable [phone] Reason for Visit * Reason Onset Date Comments new start 11/21/2024 Encounter Details Date Type Department Care Team (Late st Contact Info) Description 11/21/2024 Telephone [facility] [address] [place] [address] Noble Burrell, PharmD Social History Tobacco Use [...] drink first t volodymyr in the morning (EYE-EXTERNAL GRINDER TENDER) to steady your nerves or to get [...] documented as of this encounter Care Teams Storage And Backup Administrator Relationship Specialty Start Date End Date Armani Campa MD [address] [place] [address] PCP - General 10/19/22 Kylee [place] APRN [address] [address] Nurse Practitioner Medical Oncology 03/30/23 Faustino Topete MD [address] [place] Rosemarie Cheung [address] [address] Consulting Physician Medical Oncology 12/01/23 documented as of this encounter
--- OUTSIDE RECORDS SUMMARY | 2025-02-16 10:44 | XMS_ITS | Encounter Summary ---
Author Organization [facility] Address [address] [place] [address] Care Team Providers Care Talent Agent Name Role Phone Armani Campa MD Primary Care Provider + Encounter Details Date Type Department Care Team (Late st Contact Info) Description 10/11/2024 Results Follow-Up [facility] [address] [place] [address] Armani Campa MD [address] [facility] [place] [address] Social History Tobacco Use Types [...] Description 08/13/2025 8:45 AM EDT Office Visit [facility] [address] [place] [address] Armani Campa MD [address] [facility] [place] [place] [address] documented as of this encounter Visit Diagnoses Not on filedocumented in this encounter Additional Health Concerns Assessment Noted Time PHQ-2 Depression Total Score: 1 02/15/20 24 10:24 AM EDT documented as of this encounter Care Teams Talent Agent Relationship Specialty Start Date End Date Armani Campa MD [address] [place] [address] PCP - General Family Medicine 12/25/21 documented as of this encounter
--- OUTSIDE RECORDS SUMMARY | 2025-02-16 10:44 | XMS_ITS | Clinical Summary ---
Author Organization [facility] Address [address] [place] [address] Care Team Providers Care Cable Rigger Name Role Phone Armani Campa MD Primary Care Provider + Allergies No known active allergies Medications Lidocaine Viscous HCl (XYLOCAINE) 2 % solutionIndication s:Sore throat Take 10 mL by mouth Every 4 (Four) Hours As Needed for Moderate Pain. 100 mL 2 12/20/19 24 Active oxyCODONE (ROXICODONE) 5 MG immediate release tablet 12/13/19 24 Active ondansetron ODT (ZOFRAN-ODT) [address] 1 tablet on the tongue. 12/14/19 24 Active octreotide (sandoSTATIN) 200 MCG/ML injection Inject 1 mL into the appropriate muscle as directed by prescriber. 02/08/20 24 Active omeprazole (priLOSEC) 40 MG capsuleIndications :Neuroendocrine [...] Daily. 30 tablet 11 11/08/19 25 Active amLODIPine (NORVASC) 5 MG tabletIndications: Essential hypertension Take 1 tablet by mouth Daily. 90 tablet 1 02/16/20 25 Active amLODIPine (NORVASC) 5 MG tabletIndications: Essential hypertension Take 1 tablet by mouth Daily. 90 tablet 1 02/15/20 24 025 Discontin ued(Reord er) prochlorperazine (COMPAZINE) 10 MG tablet Take 1 tablet by mouth Every 6 (Six) Hours As Needed for Nausea or Vomiting. 025 Discontin ued(*Ther apy completed ) Active Problems Problem Noted Date Diagnosed Date Neuroendocrine carcinoma metastatic to liver Overview (01/21/2023): Use oxycodone prn for abd. pain. Call for refills. F/U oncology in 2 weeks. Prognosis poor Assessment & Plan (02/15/2025 4:46 PM EDT): Gastrointestinal hemorrhage 01/21/2023 Neuroendocrine tumor 12/25/2021 S/P TKR (total knee replacement), left Assessment & Plan (02/15/2025 4:46 PM EDT): Primary osteoarthritis of right knee 12/25/2021 Essential hypertension 12/25/2021 Assessment & Plan (02/15/2025 4:46 PM EDT): Hypertension is stable and controlled Continue current treatment regimen. Blood pressure will be reassessed in 6 months. Orders: amLODIPine (NORVASC) 5 MG tablet; Take 1 tablet by mouth Daily. Assessment & Plan (02/15/2024 12:05 PM EDT): Hypertension is uncontrolled Medication changes per orders. Blood pressure will be reassessedin 6 months. 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 anti-inflammatories (nsaid) 12/25/2021 Encounters Date Type Department Care Team Description 02/15/2025 3:15 PM EDT Office Visit [facility] [address] [place] [address] Armani Campa MD Hypokalemia (Primary Dx); Medicare annual wellness visit, subsequent; Annual physical exam; Essential hypertension; Neuroendocrine carcinoma metastatic to liver; S/P TKR (total knee replacement), left; Age-related osteoporosis without current pathological fracture; Tinnitus, unspecified laterality; Vertigo 02/15/2025 Travel from Last 3 Months Immunizations Immunization [...] 20 02/15/2025 2:59 PM EDT Oxygen Saturation 97% 10/10/2024 10:50 AM EDT Inhaled Oxygen Concentration - - Weight 50.5 kg (111 lb 6.4 oz) 02/15/2025 2:59 P M EDT Height 154.9 cm (5' 1 ) 02/15/2025 2:59 PM EDT Body Mass Index 21.05 02/15/2025 2:59 PM EDT Plan of Treatment Upcoming Encounters Date Type Department Care Team (Late st Contact Info) Description 08/13/2025 8:45 AM EDT Office Visit [facility] [address] [facility] [place] [address] Armani Campa MD [address] [place] [address] Health Maintenance Due Date Last Done Comments DXA SCAN 01/29/2024 01/28/2022, 01/28/2022 COVID-19 Vaccine ( season) 2025 03/12/2024, 03/12/2023, 03/11/2022, Additional history exists Postponed from 01/29/2025 (Product Unavailable) INFLUENZA VACCINE 03/01/2025 02/28/2024, , 03/11/2022, Additional history exists Postponed from 12/29/2024 (Product Unavailable) ANNUAL WELLNESS VISIT 02/15/2026 02/15/2025 , 02/15/2025, 02/15/2024, Additional history exists TDAP/TD VACCINES (3 - Td or Tdap) 12/20/2033 12/21/2023, 02/23/2022 ZOSTER VACCINE Completed 12/20/2017, 09/24/2017 Pneumococcal [...] Documents on File Type Date Recorded Patient [employer] Buffer Expl anation LIVING WILL - SCAN 01/28/2022 11:09 AM [facility]ARE SURROGATE, [facility], 05/20/2021 Care Teams Cable Rigger Relationship Specialty Start Date End Date Armani Campa MD [facility] [place] [address] PCP - General Family Medicine 12/25/21
--- OUTSIDE RECORDS SUMMARY | 2025-02-16 10:44 | XMS_ITS | Encounter Summary ---
Author Organization [facility] Address [address] [place] [address] Care Team Providers Care Clinical Psychologist Licensed Name Role Phone Armani Campa MD Primary Care Provider [phone] Kylee [place] APRN Unavailable [phone] Faustino Topete MD Unavailable [phone] Encounter Details Date Type Department Care Team (Late st Contact Info) Description 01/15/2025 Telephone [facility] [address] [place] [address] Daxa Schultz, type inspector Social History Tobacco Use Types Packs/Day Years [...] drink first t volodymyr in the morning (EYE-FORMING MACHINE OPERATOR) to steady your nerves or [...] documented as of this encounter Care Teams Clinical Psychologist Licensed Relationship Specialty Start Date End Date Armani Campa MD [address] [place] [address] PCP - General 10/19/22 Kylee [place] APRN [address] [address] Nurse Practitioner Medical Oncology 03/30/23 Faustino Topete MD [address] [address] Consulting Physician Medical Oncology 12/01/23 documented as of this encounter
--- OUTSIDE RECORDS SUMMARY | 2025-02-16 10:44 | XMS_ITS | Encounter Summary ---
Author Organization [facility] Address [address] [place] [address] Care Team Providers Care Household Appliance Installer Name Role Phone Armani Campa MD Primary Care Provider + Encounter Details Date Type Department Care Team (Latest Contact Info) Description 02/15/2025 Travel Social History Tobacco Use Types Packs/Day [...] AM EDT documented as of this encounter Functional Status documented as of this encounter Plan of Treatment Upcoming Encounters Date Type Department Care Team (Late st Contact Info) Description 08/13/2025 8:45 AM EDT Office Visit [facility] [address] [facility] [place] [address] Armani Campa MD [address] [place] [address] documented as of this encounter Visit Diagnoses Not on filedocumented in this encounter Additional Health Concerns Assessment Noted Time PHQ-2 Depression Total Score: 1 02/15/20 24 10:24 AM EDT documented as of this encounter Care Teams Household Appliance Installer Relationship Specialty Start Date End Date Armani Campa MD [address] [place] [address] PCP - General Family Medicine 12/25/21 documented as of this encounter
[2025-02-16 11:00] VITALS: BP 152/70; PULSE 71; RESP 18; O2SAT 100
[2025-02-16] MEDS: 0.9 % SODIUM CHLORIDE 1000ML 1,000 ML 999 ML IV (11:00)
[2025-02-16 11:30] VITALS: BP 145/68; PULSE 74
[2025-02-16 12:10] VITALS: BP 138/71; PULSE 70
== END 2025-02-16 23:59 | disposition home or self-care (01) ==
LOC: INF 10:42
PROVIDERS: PCP Family Medicine; Visit Provider Internal Medicine Hematology & Oncology
DX: C7A.019 Malignant carcinoid tumor of the small intestine, unspecified portion (principal); C7B.8 Other secondary neuroendocrine tumors
CPT/HCPCS: 96360; J7030

== ENCOUNTER 2025-02-23 10:58 | Outpatient (CLI) | payer MEDICARE, SELFPAY ==
--- OUTSIDE RECORDS SUMMARY | 2025-02-15 15:15 | XMS_ITS | Encounter Summary ---
Author Organization [facility] Address [address] [place] [id number] Care Team Providers Care Interior Surface Insulation Worker Name Role Phone Armani Campa MD Primary Care Provider + Reason for Referral * Consultation (Routine) - Authorized Specialty Diagnoses / Procedures Referred By Contac t Referred To Contact Otolaryngology Diagnoses Tinnitus, unspecified laterality Vertigo Procedures [place] OFFICE/OUTPATIENT NEW MODERATE MDM 45 MINUTES Armani Campa MD [address] [place] [address] Phone: tel: fax: Eusebio Whitmore MD [address] [facility] [address] [place] [address] Phone: tel: fax: Referral ID Status Reason Start Date Expiration Date Visits Requested Visits Authorized [id number] Authorized Specialty Services Required 02/15/2025 05/17/2026 1 1 Reason for Visit * Reason Comments Medicare Wellness-subsequent Encounter Details Date Type Department Care Team (Late st Contact Info) Description 02/15/2025 3:15 PM EDT Office Visit [facility] [address] [place] [phone] Armani Campa MD [address] [facility] [place] [address] Hypokalemia (Primary Dx); Medicare annual [...] without current pathological fracture Overactive bladder Hypokalemia [facility] (current) use of non-steroidal anti-inflammatories (nsaid) Neuroendocrine [...] Pneumococcal Vaccine 50+ Completed ZOSTER VACCINE Completed [facility] Preventative Services Quick Reference Risk Factors Identified During Encounter Hearing Problem: Referral to ENT ordered Immunizations Discussed/Encouraged: Influenza and COVID19 Chronic [facility] The above risks/problems [...] Campa MD on 02/15/2025: Data reviewed : Three Dimensional Map Modeler notes October 2024 Oncology Common labs 08/14/2024 [...] Description 08/13/2025 8:45 AM EDT Office Visit [facility] [address] [facility] [place] [address] Armani Campa MD [address] [place] [address] [place] [address] documented as of this encounter Visit Diagnoses [...] documented as of this encounter Care Teams Interior Surface Insulation Worker Relationship Specialty Start Date End Date Armani Campa MD [address] [place] [address] PCP - General Family Medicine 12/25/21 documented as of this encounter
[2025-02-23] MEDS: SODIUM CHLORIDE 0.9% 10ML FLUSH SYRINGE 10 ML IV (11:01)
--- OUTSIDE RECORDS SUMMARY | 2025-02-23 11:04 | XMS_ITS | Encounter Summary ---
Author Organization [facility] Address [address] [place] [address] Care Team Providers Care Certified Tumor Registrar Name Role Phone Armani Campa MD Primary Care Provider + Encounter Details Date Type Department Care Team (Late st Contact Info) Description 10/11/2024 Results Follow-Up [facility] [address] [place] [address] Armani Campa MD [address] [facility] [place] [address] Social History Tobacco Use Types [...] Description 08/13/2025 8:45 AM EDT Office [address] [facility] [address] [place] [address] Armani Campa MD [address] [facility] [address] documented as of this encounter Visit Diagnoses Not on filedocumented in this encounter Additional Health Concerns Assessment Noted Time PHQ-2 Depression Total Score: 1 02/15/20 24 10:24 AM EDT documented as of this encounter Care Teams Certified Tumor Registrar Relationship Specialty Start Date End Date Armani Campa MD [address] [place] [address] PCP - General Family Medicine 12/25/21 documented as of this encounter
--- OUTSIDE RECORDS SUMMARY | 2025-02-23 11:04 | XMS_ITS ---
Author Organization [facility] Address [address] [place] [address] Care Team Providers Care Ug Designer Name Role Phone Armani Campa MD Primary Care Provider [phone] Kylee [place] APRN Unavailable [phone] Faustino Topete MD Unavailable [phone] Active Problems Problem Noted Date Diagnosed Date [...]
--- OUTSIDE RECORDS SUMMARY | 2025-02-23 11:04 | XMS_ITS | Clinical Summary ---
Author Organization [facility] Address [address] [place] [address] Care Team Providers Care Facilities Administrator Name Role Phone Armani Campa MD Primary Care Provider Kylee James APRN Unavailable [phone] Faustino Topete MD Unavailable [phone] Allergies No known active allergies Medications alendronate [...] (diarrhea). 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 0 12/02/2023 CAGE Questionnaire Score 0 024 Utilities Answer Date Recorded In the past 12 months has th e Membersuite, gas, oil, or water company threatened to [...] Years (1 of 2 - PCV) 1964 [id number] Vaccine ( season) 2025 03/12/2024, 03/12/2023, 03/11/2022, [...] patient's age to complete this topic Insurance [employer] Advance Directives * DNR/DNI (Latest Code [...] Patient has decision-making capacity? Yes Care Teams Facilities Administrator Relationship Specialty Start Date End Date Armani Campa MD [address] [place] [address] PCP - General 10/19/22 Kylee James APRN [address] [facility] [address] [place] [address] Nurse Practitioner Medical Oncology 03/30/23 Faustino Topete MD [address] [address] Consulting Physician Medical Oncology 12/01/23
--- OUTSIDE RECORDS SUMMARY | 2025-02-23 11:04 | XMS_ITS | Encounter Summary ---
Author Organization [facility] Address [address] [place] [address] Care Team Providers Care Acetylene Torch Solderer Name Role Phone Armani Campa MD Primary Care Provider + Encounter Details Date Type Department Care Team (Late st Contact Info) Description 08/15/2024 Results Follow-Up [facility] [address] [place] [address] Armani Campa MD 210 [facility] [place] [address] Social History Tobacco Use Types [...] Description 08/13/2025 8:45 AM EDT Office Visit [facility] [address] [place] [address] Armani Campa MD [address] [facility] [place] [address] documented as of this encounter Visit Diagnoses Not on filedocumented in this encounter Additional Health Concerns Assessment Noted Time PHQ-2 Depression Total Score: 1 02/15/20 24 10:24 AM EDT documented as of this encounter Care Teams Acetylene Torch Solderer Relationship Specialty Start Date End Date Armani Campa MD [address] [place] [address] PCP - General Family Medicine 12/25/21 documented as of this encounter
--- OUTSIDE RECORDS SUMMARY | 2025-02-23 11:04 | XMS_ITS | Encounter Summary ---
Author Organization [facility] Address [address] [place] [address] Care Team Providers Care Social Services Specialist Name Role Phone Armani Campa MD [...] 08/13/2025 8:45 AM EDT Office Visit [facility] [address] [facility] [place] [address] Armani Campa MD [address] [place] [address] documented as of this encounter Visit Diagnoses Not on filedocumented in this encounter Additional Health Concerns Assessment Noted Time PHQ-2 Depression Total Score: 1 02/15/20 24 10:24 AM EDT documented as of this encounter Care Teams Social Services Specialist Relationship Specialty Start Date End Date Armani Cmapa MD [address] [place] [address] PCP - General Family Medicine 12/25/21 documented as of this encounter
--- OUTSIDE RECORDS SUMMARY | 2025-02-23 11:04 | XMS_ITS | Encounter Summary ---
Author Organization [facility] Address [address] [place] [address] Care Team Providers Care Fluxer Name Role Phone Armani Campa MD Primary Care Provider [phone] Kylee James APRN Unavailable [phone] Faustino Topete MD Unavailable [phone] Encounter Details Date Type Department Care Team (Late st Contact Info) Description 01/15/2025 Telephone [facility] [address] [place] [address] Daxa Schultz, industrial insulator Social History Tobacco Use Types Packs/Day Years [...] drink first t volodymyr in the morning (EYE-SPINNER TENDER) to steady your nerves or to [...] documented as of this encounter Care Teams Fluxer Relationship Specialty Start Date End Date Armani Campa MD [address] [place] [address] PCP - General 10/19/22 Kylee James APRN [address] [address] Nurse Practitioner Medical Oncology 03/30/23 Faustino Topete MD [address] [address] Consulting Physician Medical Oncology 12/01/23 documented as of this encounter
--- OUTSIDE RECORDS SUMMARY | 2025-02-23 11:05 | XMS_ITS | Encounter Summary ---
Author Organization [facility] Address [address] [place] [address] Care Team Providers Care Tourist Escort Name Role Phone Armani Campa MD Primary Care Provider + Reason for Visit * Reason Comments Med Refill Encounter Details Date Type Department Care Team (Late st Contact Info) Description 04/01/[address] [facility] [address] [place] [address] Armani Campa MD [address] [place] [address] Primary osteoarthritis of right knee [...] AM EDT Office Visit [facility] [address] [place] [address] Armani Campa MD [address] [place] [address] documented as of this encounter Visit Diagnoses Diagnosis Primary osteoarthritis of right knee documented in this encounter Care Teams Tourist Escort Relationship Specialty Start Date End Date Armani Campa MD [address] [place] [address] PCP - General Family Medicine 12/25/21 documented as of this encounter
--- OUTSIDE RECORDS SUMMARY | 2025-02-23 11:05 | XMS_ITS | Clinical Summary ---
Author Organization [facility] Address [address] [place] [address] Care Team Providers Care Baseball Winder Name Role Phone Armani Campa MD Primary [...] Assessment & Plan (02/15/2025 4:46 PM EDT): joint terminal attack controller (current) use of n on-steroidal anti-inflammatories (nsaid) 12/25/2021 Encounters Date Type Department Care Team Description 02/15/2025 3:15 PM EDT Office Visit [facility] [address] [place] [...] [facility] [address] [facility] [place] [address] Armani Campa MD [address] [place] [address] Health Maintenance Due Date Last Done [...] Documents on File Type Date Recorded Patient Nursing Scheduler Expl anation LIVING WILL - SCAN 01/28/2022 11:09 AM [facility] WILL HEALTH CARE SURROGATE, [facility] 05/20/2021 Care Teams Baseball Winder Relationship Specialty Start Date End Date Armani Campa MD [facility] [place] [address] PCP - General Family Medicine 12/25/21
[2025-02-23 11:19] VITALS: BP 127/62; PULSE 66; RESP 18; TEMP 36.6; O2SAT 98
[2025-02-23] MEDS: 0.9 % SODIUM CHLORIDE 1000ML 1,000 ML 999 ML IV (11:19)
[2025-02-23 12:27] VITALS: BP 154/82; PULSE 77; RESP 20; O2SAT 98
== END 2025-02-23 23:59 | disposition home or self-care (01) ==
LOC: INF 10:59
PROVIDERS: PCP Family Medicine; Visit Provider Internal Medicine Hematology & Oncology
DX: C7B.8 Other secondary neuroendocrine tumors (principal); C7A.019 Malignant carcinoid tumor of the small intestine, unspecified portion
CPT/HCPCS: 96360; J7030

== ENCOUNTER 2025-03-02 10:49 | Outpatient (CLI) | payer MEDICARE, SELFPAY ==
--- OUTSIDE RECORDS SUMMARY | 2025-02-15 15:15 | XMS_ITS | Encounter Summary ---
Author Organization [facility] Address [address] [place] [id number] Care Team Providers Care Travel Registered Nurse Pacu Name Role Phone Armani Campa MD Primary Care Provider + Reason for Referral * Consultation (Routine) - Authorized Specialty Diagnoses / Procedures Referred By Contac t Referred To Contact Otolaryngology Diagnoses Tinnitus, unspecified laterality Vertigo Procedures [place] OFFICE/OUTPATIENT NEW MODERATE MDM 45 MINUTES Armani Campa MD [address] [place] [address] Phone: tel: fax: Eusebio Whitmore MD [address] [facility] [address] [place] [address] Phone: tel: fax: Referral ID Status Reason Start Date Expiration Date Visits Requested Visits Authorized [id number] Authorized Specialty Services Required 02/15/2025 05/17/2026 1 1 Reason for Visit * Reason Comments Medicare Wellness-subsequent Encounter Details Date Type Department Care Team (Late st Contact Info) Description 02/15/2025 3:15 PM EDT Office Visit [facility] [address] [place] [id number] Armani Campa MD [address] [place] [address] Hypokalemia (Primary Dx); Medicare annual [...] without current pathological fracture Overactive bladder Hypokalemia intermission coordinator (current) use of non-steroidal anti-inflammatories (nsaid) Neuroendocrine [...] Pneumococcal Vaccine 50+ Completed ZOSTER VACCINE Completed [facility] Preventative Services Quick Reference Risk Factors Identified During Encounter Hearing Problem: Referral to ENT ordered Immunizations Discussed/Encouraged: Influenza and COVID19 Chronic Care [facility] 6 [facility] The above [...] Campa MD on 02/15/2025: Data reviewed : Improvement Analyst notes October 2024 Oncology Common labs 08/14/2024 [...] Description 08/13/2025 8:45 AM EDT Office Visit [facility] [address] [facility] [place] [address] Armani Campa MD [address] [place] [address] [place] [address] documented as of this encounter Visit Diagnoses [...] documented as of this encounter Care Teams Travel Registered Nurse Pacu Relationship Specialty Start Date End Date Armani Campa MD [address] [place] [address] PCP - General Family Medicine 12/25/21 documented as of this encounter
--- OUTSIDE RECORDS SUMMARY | 2025-03-02 10:52 | XMS_ITS | Encounter Summary ---
Author Organization [facility] Address [address] [place] [address] Care Team Providers Care Teacher Adventure Education Name Role Phone Armani Campa MD Primary Care Provider + Encounter Details Date Type Department Care Team (Late st Contact Info) Description 08/15/2024 Results Follow-Up [facility] [address] [place] [address] Armani Campa MD [address] [facility] [place] [address] Social History Tobacco Use Types [...] Description 08/13/2025 8:45 AM EDT Office Visit [facility] [address] [place] [address] Armani Campa MD [address] [facility] [place] [address] documented as of this encounter Visit Diagnoses Not on filedocumented in this encounter Additional Health Concerns Assessment Noted Time PHQ-2 Depression Total Score: 1 02/15/20 24 10:24 AM EDT documented as of this encounter Care Teams Teacher Adventure Education Relationship Specialty Start Date End Date Armani Campa MD [address] [place] [address] PCP - General Family Medicine 12/25/21 documented as of this encounter
--- OUTSIDE RECORDS SUMMARY | 2025-03-02 10:52 | XMS_ITS | Clinical Summary ---
Author Organization [facility] Address [address] [place] [address] Care Team Providers Care Carpenter Helper Hardwood Flooring Name Role Phone Armani Campa MD Primary [...] Assessment & Plan (02/15/2025 4:46 PM EDT): FPC (current) use of n on-steroidal anti-inflammatories (nsaid) 12/25/2021 Encounters Date Type Department Care Team Description 02/15/2025 3:15 PM EDT Office Visit [facility] [address] [place] [address] Aramni Campa MD Hypokalemia (Primary Dx); Medicare annual [...] 08/13/2025 8:45 AM EDT Office Visit [facility] [address] [facility] [place] [address] Armani Campa MD [address] [place] [address] Health Maintenance Due Date Last Done [...] Documents on File Type Date Recorded Patient Real Estate Lawyer Expl anation LIVING WILL - SCAN 01/28/2022 11:09 AM [facility] WILL HEALTH CARE SURROGATE, [facility], 05/20/2021 Care Teams Carpenter Helper Hardwood Flooring Relationship Specialty Start Date End Date Armani Campa MD [facility] [place] [address] PCP - General Family Medicine 12/25/21
--- OUTSIDE RECORDS SUMMARY | 2025-03-02 10:52 | XMS_ITS | Encounter Summary ---
Author Organization [facility] Address [address] [place] [address] Care Team Providers Care Desulfurizer Operator Name Role Phone Armani Campa MD Primary Care Provider + Reason for Visit * Reason Comments Med Refill Encounter Details Date Type Department Care Team (Late st Contact Info) Description 04/01/2023 Refill [facility] [address] [place] [address] Armani Campa MD [address] [place] [address] Primary osteoarthritis of right knee [...] 8:45 AM EDT Office Visit [facility] [address] [place] [address] Armani Campa MD [address] [place] [address] documented as of this encounter Visit Diagnoses Diagnosis Primary osteoarthritis of right knee documented in this encounter Care Teams Desulfurizer Operator Relationship Specialty Start Date End Date Armani Campa MD [address] [place] [address] PCP - General Family Medicine 12/25/21 documented as of this encounter
--- OUTSIDE RECORDS SUMMARY | 2025-03-02 10:52 | XMS_ITS ---
Author Organization [facility] Address [address] [place] [address] Care Team Providers Care Painter And Body Work Name Role Phone Armani Campa MD Primary Care Provider [phone] Kylee James APRN Unavailable [phone] Faustino Topete MD Unavailable Active Problems Problem Noted Date Diagnosed Date [...]
--- OUTSIDE RECORDS SUMMARY | 2025-03-02 10:52 | XMS_ITS | Encounter Summary ---
Author Organization [facility] Address [address] [place] [address] Care Team Providers Care Care Technician Name Role Phone Armani Campa MD Primary Care Provider [phone] Kylee James APRN Unavailable [phone] Faustino Topete MD Unavailable [phone] Encounter Details Date Type Department Care Team (Late st Contact Info) Description 01/15/2025 Telephone [facility] [address] [place] [address] Daxa Schultz, manager call Social History Tobacco Use Types Packs/Day Years [...] drink first t volodymyr in the morning (EYE-CIRCULAR SAW OPERATOR) to steady your nerves or [...] documented as of this encounter Care Teams Care Technician Relationship Specialty Start Date End Date Armani Campa MD [address] [place] [address] PCP - General 10/19/22 Kylee James APRN [address] [address] Nurse Practitioner Medical Oncology 03/30/23 Faustino Topete MD [address] [address] Consulting Physician Medical Oncology 12/01/23 documented as of this encounter
--- OUTSIDE RECORDS SUMMARY | 2025-03-02 10:52 | XMS_ITS | Encounter Summary ---
Author Organization [facility] Address [address] [place] [address] Care Team Providers Care Substance Abuse Counselor Name Role Phone Armani Campa MD [...] 8:45 AM EDT Office Visit [facility] [address] [facility] [place] [address] Armani Campa MD [address] [place] [address] documented as of this encounter Visit Diagnoses Not on filedocumented in this encounter Additional Health Concerns Assessment Noted Time PHQ-2 Depression Total Score: 1 02/15/20 24 10:24 AM EDT documented as of this encounter Care Teams Substance Abuse Counselor Relationship Specialty Start Date End Date Armani Campa MD [address] [place] [address] PCP - General Family Medicine 12/25/21 documented as of this encounter
--- OUTSIDE RECORDS SUMMARY | 2025-03-02 10:52 | XMS_ITS | Encounter Summary ---
Author Organization [facility] Address [address] [place] [address] Care Team Providers Care Metal Alloy Scientist Name Role Phone Armani Campa MD Primary Care Provider + Encounter Details Date Type Department Care Team (Late st Contact Info) Description 10/11/2024 Results Follow-Up [facility] [address] [place] [address] Armani Campa MD 210 [facility] [place] [address] Social History Tobacco Use Types [...] EDT Office Visit [facility] [address] [place] [address] Armani Campa MD [address] [facility] [place] [address] documented as of this encounter Visit Diagnoses Not on filedocumented in this encounter Additional Health Concerns Assessment Noted Time PHQ-2 Depression Total Score: 1 02/15/20 24 10:24 AM EDT documented as of this encounter Care Teams Metal Alloy Scientist Relationship Specialty Start Date End Date Armani Campa MD [address] [place] [address] PCP - General Family Medicine 12/25/21 documented as of this encounter
--- OUTSIDE RECORDS SUMMARY | 2025-03-02 10:52 | XMS_ITS | Clinical Summary ---
Author Organization [facility] Address [address] [place] [address] Care Team Providers Care Packager And Strapper Name Role Phone Armani Campa MD Primary Care Provider [phone] Kylee James APRN Unavailable [phone] Faustino Topete MD Unavailable [phone] Allergies No known active allergies Medications alendronate [...] (diarrhea). 90 mL 5 11/22/19 25 Active [place] & Syringes [facility] Please dispense appropriate needles and syringes for octreotide injection 90 each 3 11/30/19 25 Active UltiCare Insulin Syringe 31G X 10/13 0.3 ML [facility] 12/05/19 25 Active KLOR-CON 20 [...] Type Department Care Team Description 01/15/2025 Telephone [facility] [address] [place] [address] Daxa Schultz CPhT 12/05/2024 10:30 AM EDT Office Visit [facility] Mult[facility] Oncology Clinic [address] [place] [address] Shannon Aguero, SHERIE 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 Yes Care Teams Packager And Strapper Relationship Specialty Start Date End Date Armani Campa MD [address] [place] [address] PCP - General 10/19/22 Kylee James APRN [address] [facility] [address] [place] [address] Nurse Practitioner Medical Oncology 03/30/23 Faustino Topete MD [address] [facility] [address] [place] [address] Consulting Physician Medical Oncology 12/01/23
[2025-03-02 11:05] VITALS: BP 133/71; PULSE 76; RESP 18; TEMP 36.7; O2SAT 99
[2025-03-02] MEDS: SODIUM CHLORIDE 0.9% 10ML FLUSH SYRINGE 10 ML IV (11:05)
[2025-03-02] MEDS: 0.9 % SODIUM CHLORIDE 1000ML 1,000 ML 999 ML IV (11:05)
[2025-03-02 11:35] VITALS: BP 128/76; PULSE 78; RESP 18; O2SAT 99
[2025-03-02 12:10] VITALS: BP 152/83; PULSE 73; RESP 20; O2SAT 96
== END 2025-03-02 23:59 | disposition home or self-care (01) ==
LOC: INF 10:50
PROVIDERS: PCP Family Medicine; Visit Provider Internal Medicine Hematology & Oncology
DX: C7B.8 Other secondary neuroendocrine tumors (principal); C7A.019 Malignant carcinoid tumor of the small intestine, unspecified portion
CPT/HCPCS: 96360; J7030

== ENCOUNTER 2025-03-09 11:05 | Outpatient (CLI) | payer MEDICARE, SELFPAY ==
[2025-03-09] MEDS: SODIUM CHLORIDE 0.9% 10ML FLUSH SYRINGE 10 ML IV (11:15)
[2025-03-09 11:25] VITALS: BP 141/70; PULSE 72; RESP 18; TEMP 36.4; O2SAT 98
[2025-03-09] MEDS: 0.9 % SODIUM CHLORIDE 1000ML 1,000 ML 999 ML IV (11:25)
[2025-03-09 12:25] VITALS: BP 145/75; PULSE 78; RESP 18; O2SAT 98
== END 2025-03-09 23:59 | disposition home or self-care (01) ==
LOC: INF 11:05
PROVIDERS: PCP Family Medicine; Visit Provider Internal Medicine Hematology & Oncology
DX: C7A.019 Malignant carcinoid tumor of the small intestine, unspecified portion (principal); C7B.8 Other secondary neuroendocrine tumors
CPT/HCPCS: 96360; J7030

== ENCOUNTER 2025-03-16 11:03 | Outpatient (CLI) | payer MEDICARE, SELFPAY ==
--- OUTSIDE RECORDS SUMMARY | 2025-02-15 15:15 | XMS_ITS | Encounter Summary ---
Author Organization [facility] Address [address] [place] [id number] Care Team Providers Care Catalyst Supervisor Name Role Phone Armani Campa MD Primary Care Provider + Reason for Referral * Consultation (Routine) - Authorized Specialty Diagnoses / Procedures Referred By Contac t Referred To Contact Otolaryngology Diagnoses Tinnitus, unspecified laterality Vertigo Procedures [place] OFFICE/OUTPATIENT NEW MODERATE MDM 45 MINUTES Armani Campa MD [address] [place] [address] Phone: tel: fax: Eusebio Whitmore MD [address] [facility] 500 [place] [address] Phone: tel: fax: Referral ID Status Reason Start Date Expiration Date Visits Requested Visits Authorized [id number] Authorized Specialty Services Required 02/15/2025 05/17/2026 1 1 Reason for Visit * Reason Comments Medicare Wellness-subsequent Encounter Details Date Type Department Care Team (Late st Contact Info) Description 02/15/2025 3:15 PM EDT Office Visit 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 anti-inflammatories (nsaid) Neuroendocrine [...] Pneumococcal Vaccine 50+ Completed ZOSTER VACCINE Completed [facility] Preventative Services Quick Reference Risk Factors Identified During Encounter Hearing Problem: Referral to ENT ordered Immunizations Discussed/Encouraged: Influenza and COVID19 Chronic Care [facility] The above [...] Campa MD on 02/15/2025: Data reviewed : Cocoa Butter Filter Operator notes October 2024 Oncology Common labs 08/14/2024 [...] Description 08/13/2025 8:45 AM EDT Office Visit [facility] 210 [facility] [place] [address] Armani Campa MD [address] [place] [address] [place] [address] documented as of this encounter Visit Diagnoses [...] documented as of this encounter Care Teams Catalyst Supervisor Relationship Specialty Start Date End Date Armani Campa MD [address] [place] [address] PCP - General Family Medicine 12/25/21 documented as of this encounter
[2025-03-16 11:05] VITALS: BP 142/74; PULSE 71; RESP 18; TEMP 36.4; O2SAT 99
[2025-03-16] MEDS: 0.9 % SODIUM CHLORIDE 1000ML 1,000 ML 999 ML IV (11:05)
--- OUTSIDE RECORDS SUMMARY | 2025-03-16 11:06 | XMS_ITS | Encounter Summary ---
Author Organization [facility] Address [address] [place] [address] Care Team Providers Care Er Manager Name Role Phone Armani Campa MD Primary Care Provider [phone] Kylee James APRN Unavailable [phone] Faustino Topete MD Unavailable Encounter Details Date Type Department Care Team (Late st Contact Info) Description 01/15/2025 Telephone [facility] [address] [place] [address] Daxa Schultz, philosophy instructor Social History Tobacco Use Types Packs/Day Years [...] drink first t volodymyr in the morning (EYE-ETCHER ELECTROLYTIC) to steady your nerves or to get [...] Care Team (Late st Contact Info) Description 03/30/2025 11:00 AM EDT Appointment [facility] [address] [place] [address] 04/03/2025 10:00 AM EST Office Visit [facility] [address] [place] [address] Kylee James APRN 800 [facility] Jon[address] [address] documented as of this encounter Visit Diagnoses Not on filedocumented in this encounter Additional Health Concerns Assessment Noted Time A fall risk assessment has been complete d for the patient 12/05/2024 10:38 AM EDT A Body Mass Index follow-up plan has been documented for the patient 12/13/2023 2:27 PM EDT documented as of this encounter Care Teams Er Manager Relationship Specialty Start Date End Date Armani Campa MD [address] [place] [address] PCP - General 10/19/22 Kylee James APRN 800 [facility] [address] [address] Nurse Practitioner Medical Oncology 03/30/23 Fausitno Topete MD 800 [facility] [address] [address] Consulting Physician Medical Oncology 12/01/23 documented as of this encounter
--- OUTSIDE RECORDS SUMMARY | 2025-03-16 11:06 | XMS_ITS | Encounter Summary ---
Author Organization [facility] Address [address] [place] [id number] Care Team Providers Care Manager Of Change Name Role Phone Armani Campa MD Primary Care Provider [phone] Kylee James APRN Unavailable [phone] aFustino Topete MD Unavailable [phone] Reason for Referral * Imaging (Routine) - Authorized Specialty Diagnoses / Procedures Referred By Contessie davis Referred To Contact Radiology Diagnoses Metastatic malignant neuroendocrine tumor to liver Procedures CT Abdomen Pelvis w and wo IV Contrast Kylee James APRN 800 [facility] Rosemarie Cheung [facility] [address] [place] [address] Phone: tel: fax: Referral ID Status Reason Start Date Expiration Date V isits Requested Visits Authorized [id number] Authorized 03/06/2025 09/05/2026 1 1 Encounter Details Date Type Department Care Team (Late st Contact Info) Description 03/06/2025 Orders Only [facility] [address] [place] [address] Kylee James APRN 800 [facility] Jonatan [facility] [address] [place] [address] 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) Social History Tobacco Use Types [...] drink first t volodymyr in the morning (EYE-BOOK SOLICITOR) to steady your nerves or to get [...] Info) Description 03/30/2025 11:00 AM EDT Appointment [facility] [address] [place] [address] 04/03/2025 10:00 AM EST Office Visit [facility] Multidisciplinary Oncology Clinic [address] [place] [address] Kylee James APRN 800 [facility] [address] [place] [address] Scheduled Orders Name Type Priority Associated Diagnoses Orde r Schedule CT Abdomen Pelvis w and wo IV Contrast Imaging Routine Metastatic malignant neuroendocrine tumor to liver Expected: 03/06/2025 (Approximate), Expires: 09/07/2026 documented as of this encounter Visit Diagnoses Diagnosis Metastatic malignant neuroendocrine tumor to liver- Primary documented in this encounter Additional Health Concerns Assessment Noted Time A fall risk assessment has been complete d for the patient 12/05/2024 10:38 AM EDT A Body Mass Index follow-up plan has been documented for the patient 12/13/2023 2:27 PM EDT documented as of this encounter Care Teams Manager Of Change Relationship Specialty Start Date End Date Armani Campa MD [address] [place] [address] PCP - General 10/19/22 Kylee James APRN [address] [address] Nurse Practitioner Medical Oncology 03/30/23 Faustino Topete MD [address] Rosemarie Cheung [address] [address] Consulting Physician Medical Oncology 12/01/23 documented as of this encounter
--- OUTSIDE RECORDS SUMMARY | 2025-03-16 11:06 | XMS_ITS | Encounter Summary ---
Author Organization [facility] Address [address] [place] [address] Care Team Providers Care Political Science Chair Name Role Phone Armani Campa MD Primary Care Provider [phone] Kylee James APRN Unavailable [phone] Faustino Topete MD Unavailable [phone] Encounter Details Date Type Department Care Team (Late st Contact Info) Description 03/05/2025 Telephone [facility] [address] [place] [address] Faustino Topete MD 800 [facility] [address] [place] [address] Social History Tobacco Use Types [...] drink first t volodymyr in the morning (EYE-PROPERTY UTILIZATION OFFICER) to steady your nerves or to [...] * Telephone Encounter - Lucinda Junior - 03/06/2025 1:21 PM EDT 03/06 Scheduled 04/[address] AP request to Radiology * Telephone Encounter - Fransisca Jasso - 03/05/2025 10:14 AM EDT Patient Phone Message Reason for Call: Patient wants to get her CT scheduled and then f/u with Dr. Topete and asking forTH for that visit Best contact number and optimal time of day to reach caller: Call Melody [phone] Note: Please do not reply to this message. Follow-up communication and further actions as a result of this message need to be communicated with the patient directly, if the patient is not active onMyChart. If the patient is active on MyChart, they will receive notification of the communication/outcome via [employer]. documented in this encounter Plan of Treatment Upcoming Encounters Date Type Department Care Team (Late st Contact Info) Description 03/30/2025 11:00 AM EDT Appointment [facility] [address] [place] [id number] 04/03/2025 10:00 AM EST Office Visit [facility] [address] [place] [address] Kylee James APRN 800 [facility] [address] [place] [address] documented as of this encounter Visit Diagnoses Not on filedocumented in this encounter Additional Health Concerns Assessment Noted Time A fall risk assessment has been complete d for the patient 12/05/2024 10:38 AM EDT A Body Mass Index follow-up plan has been documented for the patient 12/13/2023 2:27 PM EDT documented as of this encounter Care Teams Political Science Chair Relationship Specialty Start Date End Date Armani Campa MD [address] [place] [address] PCP - General 10/19/22 Kylee James APRN [address] [address] Nurse Practitioner Medical Oncology 03/30/23 Faustino Topete MD [address] [address] Consulting Physician Medical Oncology 12/01/23 documented as of this encounter
--- OUTSIDE RECORDS SUMMARY | 2025-03-16 11:06 | XMS_ITS | Encounter Summary ---
Author Organization [facility] Address [address] [place] [address] Care Team Providers Care Esl Instructor Name Role Phone Armani Campa MD [...] Description 08/13/2025 8:45 AM EDT Office Visit [facility] [address] [facility] [place] [address] Armani Campa MD [address] [place] [address] documented as of this encounter Visit Diagnoses Not on filedocumented in this encounter Additional Health Concerns Assessment Noted Time PHQ-2 Depression Total Score: 1 02/15/20 24 10:24 AM EDT documented as of this encounter Care Teams Esl Instructor Relationship Specialty Start Date End Date Armani Campa MD [address] [place] [address] PCP - General Family Medicine 12/25/21 documented as of this encounter
--- OUTSIDE RECORDS SUMMARY | 2025-03-16 11:06 | XMS_ITS | Encounter Summary ---
Author Organization [facility] Address [address] [place] [address] Care Team Providers Care Last Inserter Name Role Phone Armani Campa MD Primary Care Provider + Encounter Details Date Type Department Care Team (Late st Contact Info) Description 08/15/2024 Results Follow-Up [facility] [address] [place] [address] Armani Campa MD [address] [facility] [place] [address] Social History Tobacco Use Types [...] MEDICAL CENTER MEDICINE [address] [place] [address] Armani Campa MD [address] [facility] [place] [address] documented as of this encounter Visit Diagnoses Not on filedocumented in this encounter Additional Health Concerns Assessment Noted Time PHQ-2 Depression Total Score: 1 02/15/20 24 10:24 AM EDT documented as of this encounter Care Teams Last Inserter Relationship Specialty Start Date End Date Armani Campa MD [address] [place] [address] PCP - General Family Medicine 12/25/21 documented as of this encounter
--- OUTSIDE RECORDS SUMMARY | 2025-03-16 11:07 | XMS_ITS | Encounter Summary ---
Author Organization [facility] Address [address] [place] [address] Care Team Providers Care Director Search Name Role Phone Armani Campa MD Primary Care Provider + Encounter Details Date Type Department Care Team (Late st Contact Info) Description 10/11/2024 Results Follow-Up [facility] MED[facility] [address] [place] [address] Armani Campa MD [address] [facility] [place] [address] Social History Tobacco Use Types [...] MEDICAL CENTER MEDICINE [address] [place] [address] Armani Campa MD [address] [facility] [place] [address] documented as of this encounter Visit Diagnoses Not on filedocumented in this encounter Additional Health Concerns Assessment Noted Time PHQ-2 Depression Total Score: 1 02/15/20 24 10:24 AM EDT documented as of this encounter Care Teams Director Search Relationship Specialty Start Date End Date Armani Campa MD [address] [place] [address] PCP - General Family Medicine 12/25/21 documented as of this encounter
--- OUTSIDE RECORDS SUMMARY | 2025-03-16 11:07 | XMS_ITS | Clinical Summary ---
Author Organization [facility] Address [address] [place] [address] Care Team Providers Care Health Systems Analyst Name Role Phone Armani Campa MD Primary Care Provider Kylee James APRN Unavailable [phone] Faustino Topete MD Unavailable [phone] Allergies No known active allergies Medications alendronate [...] (diarrhea). 90 mL 5 11/22/19 25 Active [place] [facility] Please dispense appropriate needles and syringes for octreotide injection 90 each 3 11/30/19 25 Active [facility] Insulin Syringe 31G X 10/13 0.3 ML [facility] 12/05/19 25 Active KL[facility]-CON 20 [...] Encounters Date Type Department Care Team Description 03/06/2025 Orders Only [facility] [address] [place] [phone] Kylee James APRN 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) 03/05/2025 Telephone [facility] [address] [place] [phone] Faustino Topete MD 01/15/2025 Telephone [facility] [address] [place] [address] Daxa Schultz, drag seiner from Last 3 Months Immunizations Immunization Administration Dates Next Due Influenza, high-dose, quadrivalent 03/11/2022 Joselo COVID-19 Vaccine (Blue Cap) 18+ 08/08/19 21 Moderna COVID-19 Vaccine (Cook Vacuum Kettle) 12+ years Moderna COVID-19 Vaccine Bivalent 6months+ [...] drink first t volodymyr in the morning (EYE-DISCHARGE COORDINATOR) to steady your nerves or to [...] Info) Description 03/30/2025 11:00 AM EDT Appointment [facility] [address] [place] [address] 04/03/2025 10:00 AM EST Office [facility] [address] [place] [address] Kylee James, ENVIRONMENTAL SPECIALIST 800 [facility] [address] [place] [address] Health Maintenance Due Date Last Done Comments [facility]-Bone Density Scan 1943 [facility]-/Child/Adol SDOH Screenings 1943 [facility]- SDOH Screenings 1961 [facility]-Adult SDOH Screenings 1961 [facility]-Hepatitis A Vaccines (1 of 2 - Risk 2-dose series) 1962 [facility]-Pneumococcal Vaccine: 50+ Years (1 of 2 - PCV) 1962 [facility]-Medicare Annual Wellness (AWV) 02/14/2025 02/15/2024, 07/02/2022 [facility]-Depression Screening 12/05/2025 12/05/2024 [facility]-DTaP,Tdap,and Td Vaccines (3 - Td or Tdap) 12/20/2033 12/21/2023, 02/23/2022 [facility]-Zoster Vaccines Completed 12/20/2017, 8 [facility]-RSV Vaccine: 60+ Years or Completed 03/12/2024 [facility]-LWRMT-28 Vaccine Completed 02/16/2025, 03/12/2024, 03/12/2023, Additional history exists [facility]-Influenza Vaccine Completed 02/16/2025 , 02/28/2024, 03/12/2023, Additional history exists HPV Vaccines Aged Out No longer eligi [...] Patient has decision-making capacity? Yes Care Teams Health Systems Analyst Relationship Specialty Start Date End Date Armani Campa MD [address] [place] [address] PCP - General 10/19/22 Kylee James APRN [address] [address] Nurse Practitioner Medical Oncology 03/30/23 Faustino Topete MD [address] [facility] [address] [place] [address] Consulting Physician Medical Oncology 12/01/23
--- OUTSIDE RECORDS SUMMARY | 2025-03-16 11:07 | XMS_ITS | Encounter Summary ---
Author Organization [facility] Address [address] [place] [address] Care Team Providers Care Die Tripper Name Role Phone Armani Campa MD Primary Care Provider + Reason for Visit * Reason Comments Med Refill Encounter Details Date Type Department Care Team (Late st Contact Info) Description 04/01/2023 Refill [facility] [address] [place] [address] Armani Campa MD [address] [place] [address] Primary osteoarthritis of right knee [...] 08/13/2025 8:45 AM EDT Office Visit [facility] [address] [place] [address] Armani Campa MD [address] [place] [address] documented as of this encounter Visit Diagnoses Diagnosis Primary osteoarthritis of right knee documented in this encounter Care Teams Die Tripper Relationship Specialty Start Date End Date Armani Campa MD [address] [place] [address] PCP - General Family Medicine 12/25/21 documented as of this encounter
--- OUTSIDE RECORDS SUMMARY | 2025-03-16 11:07 | XMS_ITS ---
Author Organization [facility] Address [address] [place] [address] Care Team Providers Care Environmental Communications Specialist Name Role Phone Armani Campa MD Primary Care Provider [phone] Kylee James APRN Unavailable [phone] Faustino Topete MD Unavailable [phone] Active Problems Problem Noted Date Diagnosed Date [...]
--- OUTSIDE RECORDS SUMMARY | 2025-03-16 11:07 | XMS_ITS | Clinical Summary ---
Author Organization [facility] Address [address] [place] [address] Care Team Providers Care Laborer Shellfish Processing Name Role Phone Armani Campa MD Primary [...] Assessment & Plan (02/15/2025 4:46 PM EDT): manager long term care (current) use of n on-steroidal anti-inflammatories (nsaid) 12/25/2021 Encounters Date Type Department Care Team Description 02/15/2025 3:15 PM EDT Office Visit [facility] [address] [...] Description 08/13/2025 8:45 AM EDT Office Visit [facility] [address] [facility] [address] Armani Campa MD [address] [place] [address] Health Maintenance Due Date Last Done Comments DXA SCAN 01/29/2024 01/28/2022, 01/28/2022 INFLUENZA VACCINE 12/29/2024 02/28/2024, , 03/11/2022, Additional history exists COVID-19 Vaccine (2023-2 5 season) 2025 03/12/2024, 03/12/2023, 03/11/2022, Additional history exists ANNUAL WELLNESS VISIT 02/15/2026 02/15/2025 , 02/15/2025, [...] Documents on File Type Date Recorded 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
[2025-03-16] MEDS: SODIUM CHLORIDE 0.9% 10ML FLUSH SYRINGE 10 ML IV (12:05)
[2025-03-16 12:10] VITALS: BP 147/73; PULSE 76
== END 2025-03-16 23:59 | disposition home or self-care (01) ==
LOC: INF 11:04
PROVIDERS: PCP Family Medicine; Visit Provider Internal Medicine Hematology & Oncology
DX: C7A.019 Malignant carcinoid tumor of the small intestine, unspecified portion (principal); C7B.8 Other secondary neuroendocrine tumors
CPT/HCPCS: 96360; 96361; J7030

== ENCOUNTER 2025-03-23 10:52 | Outpatient (CLI) | payer MEDICARE, SELFPAY ==
--- OUTSIDE RECORDS SUMMARY | 2025-02-15 15:15 | XMS_ITS | Encounter Summary ---
Author Organization [facility] Address [address] [place] [phone] Care Team Providers Care Jewel Inserter Name Role Phone Armani Campa MD Primary Care Provider + Reason for Referral * Consultation (Routine) - Authorized Specialty Diagnoses / Procedures Referred By Contac t Referred To Contact Otolaryngology Diagnoses Tinnitus, unspecified laterality Vertigo Procedures [place] OFFICE/OUTPATIENT NEW MODERATE MDM 45 MINUTES Armani Campa MD [address] [place] [address] Phone: tel: fax: Eusebio Whitmore MD [address] [facility] [address] [place] [address] Phone: tel: fax: Referral ID Status Reason Start Date Expiration Date Visits Requested Visits Authorized [id number] Authorized Specialty Services Required 02/15/2025 05/17/2026 1 1 Reason for Visit * Reason Comments Medicare Wellness-subsequent Encounter Details Date Type Department Care Team (Late st Contact Info) Description 02/15/2025 3:15 PM EDT Office Visit [facility] [address] [facility] [place] [phone] Armani Campa MD [address] [place] [address] Hypokalemia (Primary Dx); Medicare annual [...] without current pathological fracture Overactive bladder Hypokalemia [facility] (current) use of non-steroidal anti-inflammatories (nsaid) Neuroendocrine [...] Pneumococcal Vaccine 50+ Completed ZOSTER VACCINE Completed [facility] Preventative Services Quick Reference Risk Factors Identified During Encounter Hearing Problem: Referral to ENT ordered Immunizations Discussed/Encouraged: Influenza and COVID19 Chronic Care [facility] 6 [facility] The above [...] cm (61 ) Wt 50.5 kg (111 lb6.4 oz) BMI 21.05 kg/m?? Physical Exam Constitutional: [...] Campa MD on 02/15/2025: Data reviewed : Sand Plant Attendant notes October 2024 Oncology Common labs 08/14/2024 [...] Description 08/13/2025 8:45 AM EDT Office Visit [facility] [address] [place] [address] Armani Campa MD [address] [place] [place], [place] [phone] documented as of this encounter Visit Diagnoses [...] documented as of this encounter Care Teams Jewel Inserter Relationship Specialty Start Date End Date Armani Campa MD [address] [place] [address] PCP - General Family Medicine 12/25/21 documented as of this encounter
--- OUTSIDE RECORDS SUMMARY | 2025-03-23 11:05 | XMS_ITS | Clinical Summary ---
Author Organization [facility] Address [address] [place] [address] Care Team Providers Care Tap And Die Maker Technician Name Role Phone Armani Campa MD [...] Daily. 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) use of n on-steroidal anti-inflammatories (nsaid) 12/25/2021 Encounters Date Type Department Care Team Description 03/19/2025 Telephone [facility] [address] [place] [address] Armani Campa MD MAMMOGRAM ORDER 02/15/2025 3:15 PM EDT Office Visit [facility] [address] [place] [address] Armani Campa MD Hypokalemia (Primary Dx); Medicare [...] Description 08/13/2025 8:45 AM EDT Office Visit [facility] [address] [facility] [place] [address] Armani Campa MD [address] [facility] [place] [address] Health Maintenance Due Date Last Done [...] Most Recently Relevant to Health Maintenance Insurance [facility] MEDICARE ADVANTAGE HMO Advance Directives Documents on File Type Date Recorded Patient Waste Handling Technician Expl anation LIVING WILL - SCAN 01/28/2022 11:[address] [facility] SUR[facility] [facility] [place] 05/20/2021 Care Teams Tap And Die Maker Technician Relationship Specialty Start Date End Date Armani Campa MD [address] [facility] [place] [address] PCP - General Family Medicine 12/25/21
--- OUTSIDE RECORDS SUMMARY | 2025-03-23 11:05 | XMS_ITS ---
Author Organization [facility] Address [address] [place] [address] Care Team Providers Care Manager Production Name Role Phone Armani Campa MD Primary Care Provider [phone] Kylee aJmes APRN Unavailable [phone] Faustino Topete MD Unavailable [phone] Active Problems Problem Noted Date Diagnosed Date [...]
--- OUTSIDE RECORDS SUMMARY | 2025-03-23 11:05 | XMS_ITS | Data Portability ---
Author Organization [facility] RADHA Rice EDEN CLOSED Address [address] [facility] [place] [address] Care Team Providers Care Director Print Name Role Phone PEPE CORTES Referring Provider Assessment Encounter Date Assessment Date Assessment LastModified by Organization Details LastModified Time 07/02/2022 07/02/2022 Symptoms consistent with bladder spasms and overactive bladder. Trial of Vesicare. [email or web address] Not available 07/04/2022 15:48:22 08/20/2022 08/20/2022 Medical management of overactive bladder with Vesicare. Follow up in 6 months. [email or web address] Not available 08/20/2022 14:51:37 Plan of Treatment Reminders Order Date Submit Date Provider Last Modified By Organization Details Last Modified Time Details Appointments AUDIOGRAM 2024 01:20P M LUMA_AUD IO_GT Not available Not available Not available NEW PATIENT 2024 01:50P M GRETCHEN SOLIS III, MD Not available Not available Not available Lab urinalysi s panel, auto 2022 [email or web address] [place] [address] With [facility], [address], [address], [place], [address], 08/21/2022 08:02:57 urinalysi s panel, auto 2022 [email or web address] [place] [address] With [facility], [address], [address], [place], [address], 07/07/2022 09:27:49 Referral None recorded. Procedures None recorded. Surgeries None recorded. Imaging None recorded. Medication Orders solifenac in 10 mg tablet 2022 023 [email or web address] 4 [facility], 805 27 [facility] [place], [address], 08/24/2022 09:10:31 solifenac in 10 mg tablet 2022 023 [facility] 591, 805 27 [facility] [place], [address], 07/02/2022 15:05:24 Patient TargetsNo targets recorded. Patient Instructions Encounter Date Encounter Id Patient Instructions Last Modified By Organization Details Last Modified Time 08/20/2022 [id number] learning about healthy weight Not available 08/21/2022 08:02:57 Reason for Referral None Reported. Results Created Date Observation Date Name Description Value Unit Range Abnormal Flag Note LastModifiedBy Organization Detail LastModifiedTime 07/02/1907/02/2022 urina lysis panel , auto Unknown Analyte Clean Catch Not Available [facility] With [address] Priyanka Lopez, [place], [address], 07/02/2022 14:45:06 07/02/1907/02/2022 urina lysis panel , auto Unknown Analyte Yellow Not Available [facility] With [address] Priyanka Lopez, [place], [address], 07/02/2022 14:45:06 07/02/1907/02/2022 urina lysis panel , auto Unknown Analyte Clear Not Available [facility] With [address] Priyanka Lopez, [place], [address], 07/02/2022 14:45:06 07/02/1907/02/2022 urina lysis panel , auto Unknown Analyte 1.005 Not Available [facility] With [address] Priyanka Lopez, [place], [address], 07/02/2022 14:45:06 07/02/19 23 07/02/2022 urina lysis panel , auto Unknown Analyte 1.003- 1.035 Not Available [facility] With [address] Priyanka Lopez, [place], [address], 07/02/2022 14:45:06 07/02/19 23 07/02/2022 urina lysis panel , auto Unknown Analyte 8.0 Not Available [facility] With [address] Priyanka Lopez, [place], [address], 07/02/2022 14:45:06 07/02/19 23 07/02/2022 urina lysis panel , auto Unknown Analyte 5.0-8. 0 Not Available [facility] With [address] Priyanka Lopez, [place], [address], 07/02/2022 14:45:06 07/02/19 23 07/02/2022 urina lysis panel , auto Unknown Analyte Negati ve Not Available [facility] With [address] Priyanka Lopez, [place], [address], 07/02/2022 14:45:06 07/02/19 23 07/02/2022 urina lysis panel , auto Unknown Analyte Negati ve Not Available [facility] With [address], [place], [address], 07/02/2022 14:45:06 07/02/19 23 07/02/2022 urina lysis panel , auto Unknown Analyte Negati ve Not Available [facility] With [address], [place], [address], 07/02/2022 14:45:06 07/02/19 23 07/02/2022 urina lysis panel , auto Unknown Analyte Negati ve Not Available [facility] With [address], [place], [address], 07/02/2022 14:45:06 07/02/19 23 07/02/2022 urina lysis panel , auto Unknown Analyte Negati ve Not Available [facility] With [address] Priyanka Lopez, [place], [address], 07/02/2022 14:45:06 07/02/19 23 07/02/2022 urina lysis panel , auto Unknown Analyte Negati ve Not Available [facility] With [address] Priyanka Lopez, [place], [address], 07/02/2022 14:45:06 07/02/19 23 07/02/2022 urina lysis panel , auto Unknown Analyte Normal Not Available [facility] With [address] Priyanka Lopez, [place], [address], 07/02/2022 14:45:06 07/02/19 23 07/02/2022 urina lysis panel , auto Unknown Analyte Normal Not Available [facility] With [address] Priyanka Lopez, [place], [address], 07/02/2022 14:45:06 07/02/19 23 07/02/2022 urina lysis panel , auto Unknown Analyte Negati ve Not Available [facility] With [address], [place], [address], 07/02/2022 14:45:06 07/02/19 23 07/02/2022 urina lysis panel , auto Unknown Analyte Negati ve Not Available [facility] With [address], [place], [address], 07/02/2022 14:45:06 07/02/19 23 07/02/2022 urina lysis panel , auto Unknown Analyte Normal Not Available [facility] With [address], [place], [address], 07/02/2022 14:45:06 07/02/19 23 07/02/2022 urina lysis panel , auto Unknown Analyte Normal 1 mg/dl Not Available [facility] With [address], [place], [address], 07/02/2022 14:45:06 07/02/19 23 07/02/2022 urina lysis panel , auto Unknown Analyte Negati ve Not Available [facility] With [address], [place], [address], 07/02/2022 14:45:06 07/02/19 23 07/02/2022 urina lysis panel , auto Unknown Analyte Negati ve Not Available [facility] With [address], [place], [address], 07/02/2022 14:45:06 07/02/19 23 07/02/2022 urina lysis panel , auto Unknown Analyte Negati ve Not Available [facility] With [address], [place], [address], 07/02/2022 14:45:06 07/02/19 23 07/02/2022 urina lysis panel , auto Unknown Analyte Negati ve Not Available [facility] With [place] [address] [address], [place], [address], 07/02/2022 14:45:06 08/21/19 23 08/20/2022 urina lysis panel , auto Unknown Analyte Clean Catch Not Available [facility] [place] With [address], [place], [address], 08/20/2022 14:41:44 08/21/1908/20/2022 urina lysis panel , auto Unknown Analyte Yellow Not Available [facility] With [address], [place], [address], 08/20/2022 14:41:44 08/21/1908/20/2022 urina lysis panel , auto Unknown Analyte Clear Not Available [facility] With [address], [place], [address], 08/20/2022 14:41:44 08/21/1908/20/2022 urina lysis panel , auto Unknown Analyte 1.005 Not Available [facility] With [address], [place], [address], 08/20/2022 14:41:44 08/21/1908/20/2022 urina lysis panel , auto Unknown Analyte 1.003- 1.035 Not Available [facility] With [address], [place], [address], 08/20/2022 14:41:44 08/21/1908/20/2022 urina lysis panel , auto Unknown Analyte 6.5 Not Available [facility] With [address], [place], [address], 08/20/2022 14:41:44 08/21/19 23 08/20/2022 urina lysis panel , auto Unknown Analyte 5.0-8. 0 Not Available [facility] With [address], [place], [address], 08/20/2022 14:41:44 08/21/1908/20/2022 urina lysis panel , auto Unknown Analyte Negati ve Not Available [facility] With [address], [place], [address], 08/20/2022 14:41:44 08/21/1908/20/2022 urina lysis panel , auto Unknown Analyte Negati ve Not Available [facility] With [address] Lopez, [place], [address], 08/20/2022 14:41:44 08/21/1908/20/2022 urina lysis panel , auto Unknown Analyte Negati ve Not Available [facility] With [address], [place], [address], 08/20/2022 14:41:44 08/21/1908/20/2022 urina lysis panel , auto Unknown Analyte Negati ve Not Available [facility] With [address], [place], [address], 08/20/2022 14:41:44 08/21/1908/20/2022 urina lysis panel , auto Unknown Analyte Negati ve Not Available [facility] With [address], [place], [address], 08/20/2022 14:41:44 08/21/1908/20/2022 urina lysis panel , auto Unknown Analyte Negati ve Not Available [facility] With [address], [place], [address], 08/20/2022 14:41:44 08/21/1908/20/2022 urina lysis panel , auto Unknown Analyte Normal Not Available [facility] With [address], [place], [address], 08/20/2022 14:41:44 08/21/1908/20/2022 urina lysis panel , auto Unknown Analyte Normal Not Available [facility] With [address], [place], [address], 08/20/2022 14:41:44 08/21/1908/20/2022 urina lysis panel , auto Unknown Analyte Negati ve Not Available [facility] With [address], [place], [address], 08/20/2022 14:41:44 08/21/1908/20/2022 urina lysis panel , auto Unknown Analyte Negati ve Not Available [facility] With [address] Lopez, [place], [address], 08/20/2022 14:41:44 08/21/1908/20/2022 urina lysis panel , auto Unknown Analyte Normal Not Available [facility] With [address], [place], [address], 08/20/2022 14:41:44 08/21/1908/20/2022 urina lysis panel , auto Unknown Analyte Normal 1 mg/dl Not Available [facility] With [address], [place], [address], 08/20/2022 14:41:44 08/21/1908/20/2022 urina lysis panel , auto Unknown Analyte Negati ve Not Available [facility] With [address], [place], [address], 08/20/2022 14:41:44 08/21/1908/20/2022 urina lysis panel , auto Unknown Analyte Negati ve Not Available [facility] With [address], [place], [address], 08/20/2022 14:41:44 08/21/1908/20/2022 urina lysis panel , auto Unknown Analyte Negati ve Not Available [facility] With [address], [place], [address], 08/20/2022 14:41:44 08/21/1908/20/2022 urina lysis panel , auto Unknown Analyte Negati ve Not Available [facility] With [address], [place], [address], 08/20/2022 14:41:44 Result Notes None recorded. Procedures Surgical History Date Name Laterality Status Provider Name and Address Organization Details Recorded Time Knee arthroscopy /surgery completed Beverly Mahmood [facility] 07/02/2022 14:43:48 Imaging Results None recorded. Procedure [...] Updated DateTime 07/02/2022 154.94 cm 21.4 kg/m2 33810.94 g Beverly Mahmood [facility] 07/02/2022 14:41:26 Date Recorded Body height Body mass index (BMI) Body weight Provider Name and Address Organization Details Last Updated DateTime 08/20/2022 154.94 cm 21.4 kg/m2 22365.94 g Awa Navas [facility] 08/20/2022 14:40:59 Social History Question Answer Notes LastModified by Organizat ion Details LastModified Time Tobacco Smoking Status [facility] 14:43:28 What Was The Date Of Your Most Recent Tobacco Screening? 08/20/2022 [email or web address] Information not available 08/20/2022 What Is Your Relationship Status? [email or web address] Information not available 07/02/2022 Sex: Unknown Functional Status Question Answer Note LastModified by Organization D etails LastModified Time What is your level of alcohol consumption? None [email or web address] Information not available 07/02/2022 Mental Status None recorded. Family History Relationship Description Onset Age of this Age Resolved Age Notes LastModified by Organization Details LastModified Time Mother Diabetes mellitus [email or web address] Not available 07/2022 14:43:18 Medical History Condition Response Arthritis Y Hypertension Y Gynecological HistoryNo gynecological history recorded. Obstetrics History GPAL:G 0 P 0 0 0 0 Past Encounters Encounter ID Performer Location Encounter Start Date Encounter Closed Date Diagnosis/Indication Diagnosis SNOMED-CT Code Diagnosis ICD10 Code Diagnosis IMO Codes Diagnosis Note [id number] [facility] [address] [place] [address] 07/02/2022 14:06:12 07/05/2022 04:02:59 Overactive urinary bladder 027580314 N32.81 Nocturia 023789338 R35.1 [id number] QIAN ARCEO MD [facility] [address] ,[place] [address] 08/20/2022 14:40:42 08/22/2022 04:36:15 Overactive urinary bladder 496953139 N32.81 Nocturia 406544006 R35.1 Health Concerns Section Related Observation LastModified by Organization Detai ls LastModified Time None Recorded Concern Status LastModified by Organization Details LastModified Time None Recorded Advance Directives Directive None Recorded Payers Insurance Date Sequence Insurance Name Policy Number Policy Bowen Covered Member ID Bowen Member ID Guarantor Name 02/16/2025 1 [facility] (MEDICAID REPLACEMENT - HMO) Radha Vidales [id number] Radha Vidales 02/16/2025 1 [place] [id number] Radha Vidales [id number] Radha Vidales Notes Date Note Type Note [...] urination, not during urination. QIAN ARCEO MD [address] [place] [address], [address], [facility] 07/04/2022 15:53:03 08/20/2022 text/html 77-year-old female [...] but not of concern to patient. QIAN RACEO MD [address] [place] [address] [place], [address], [facility] 08/21/2022 08:03:15 OBGyn Episode No OBEpisode recorded.
--- OUTSIDE RECORDS SUMMARY | 2025-03-23 11:05 | XMS_ITS | Encounter Summary ---
Author Organization [facility] Address [address] [place] [address] Care Team Providers Care Sweatband Flanger Name Role Phone Armani Campa MD Primary Care Provider [phone] Kylee James APRN Unavailable [phone] Faustino Topete MD Unavailable [phone] Encounter Details Date Type Department Care Team (Late st Contact Info) Description 03/05/2025 Telephone [facility] [address] [place] [address] Faustino Topete MD 800 [facility] [address] [place] [address] Social History Tobacco Use Types [...] drink first t volodymyr in the morning (EYE-PYROGLAZER) to steady your nerves or to get [...] of day to reach caller: Call Melody [phone] Note: Please do not reply to this message. Follow-up communication and further actions as a result of this message need to be communicated with the patient directly, if the patient is not active onMyChart. If the patient is active on MyChart, they will receive notification of the communication/outcome via LE TOTE. documented in this encounter Plan of Treatment Upcoming Encounters Date Type Department Care Team (Late st Contact Info) Description 03/30/2025 11:00 AM EDT Appointment [facility] [address] [place] [address] 04/03/2025 10:00 AM EST Office [facility] [address] [place] [address] Kylee James APRN 800 [facility] [address] [place] [address] documented as of this encounter Visit Diagnoses Not on filedocumented in this encounter Additional Health Concerns Assessment Noted Time A fall risk assessment has been complete d for the patient 12/05/2024 10:38 AM EDT A Body Mass Index follow-up plan has been documented for the patient 12/13/2023 2:27 PM EDT documented as of this encounter Care Teams Sweatband Flanger Relationship Specialty Start Date End Date Armani Campa MD [address] [place] [address] PCP - General 10/19/22 Kylee James APRN [address] [address] Nurse Practitioner Medical Oncology 03/30/23 Faustino Topete MD [address] [address] Consulting Physician Medical Oncology 12/01/23 documented as of this encounter
--- OUTSIDE RECORDS SUMMARY | 2025-03-23 11:05 | XMS_ITS | Encounter Summary ---
[facility] Organization [facility] Address [address] [place] [address] Care Team Providers Care Surgery Technician Name Role Phone Armani Campa MD Primary Care Provider + Reason for Visit * Reason Comments Med Refill Encounter Details Date Type Department Care Team (Late st Contact Info) Description 04/01/2023 Refill [facility] [address] [place] [address] Armani Campa MD [address] [place] [address] Primary osteoarthritis of right knee [...] [facility] [address] [place] [address] Armani Campa MD [address] [place] [address] documented as of this encounter Visit Diagnoses Diagnosis Primary osteoarthritis of right knee documented in this encounter Care Teams Surgery Technician Relationship Specialty Start Date End Date Armani Campa MD [address] [place] [address] PCP - General Family Medicine 12/25/21 documented as of this encounter
--- OUTSIDE RECORDS SUMMARY | 2025-03-23 11:05 | XMS_ITS | Clinical Summary ---
Author Organization [facility] Address [address] [place] [address] Care Team Providers Care Community Health Worker Name Role Phone Armani Campa MD Primary Care Provider [phone] Kylee James APRN Unavailable [phone] Faustino Topete MD Unavailable [phone] Allergies No known active allergies Medications alendronate [...] (diarrhea). 90 mL 5 11/22/19 25 Active [employer] Please dispense appropriate needles and syringes for octreotide injection 90 each 3 11/30/19 25 Active [employer]Care Insulin Syringe 31G X 10/[address] 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) 03/05/2025 Telephone [facility] [address] [place] [address] Faustino Topete MD 01/15/2025 Telephone [facility] [address] [place] [address] Daxa Schultz, cake cutter machine from Last 3 Months Immunizations Immunization Administration Dates Next Due Influenza, high-dose, quadrivalent 03/11/2022 Joselo COVID-19 Vaccine (Blue Cap) 18+ 08/08/19 21 Moderna COVID-19 Vaccine (Assembler Bonding) 12+ years Moderna COVID-19 Vaccine Bivalent 6months+ [...] drink first t volodymyr in the morning (EYE-SHOE DESIGNER) to steady your nerves or to [...] Info) Description 03/30/2025 11:00 AM EDT Appointment [facility] [address] [place] [address] 04/03/2025 10:00 AM EST [facility] [address] [place] [address] Kylee James, QUIRK SANDER 800 [facility] [address] [place] [address] Health Maintenance Due Date Last [...] UKY-RSV Vaccine: 60+ Years or Completed 03/12/2024 QFE-HUDBL-40 Vaccine Completed 02/16/2025, 03/12/2024, 03/12/2023, Additional history [...] Patient has decision-making capacity? Yes Care Teams Community Health Worker Relationship Specialty Start Date End Date Armani Campa MD [address] [place] [address] PCP - General 10/19/22 Kylee James APRN [address] [address] Nurse Practitioner Medical Oncology 03/30/23 Faustino Topete MD 800 [facility] [address] [place] [address] Consulting Physician Medical Oncology 12/01/23
--- OUTSIDE RECORDS SUMMARY | 2025-03-23 11:05 | XMS_ITS | Encounter Summary ---
Author Organization [facility] Address [address] [place] [address] Care Team Providers Care Program Aide Name Role Phone Armani Campa MD Primary Care Provider + Encounter Details Date Type Department Care Team (Late st Contact Info) Description 08/15/2024 Results Follow-Up [facility] [address] [facility] [place] [address] Armani Campa MD 210 [facility] [place] [address] Social History Tobacco Use Types [...] Visit [facility] [address] [facility] [place] [address] Armani Campa MD [address] [place] [address] documented as of this encounter Visit Diagnoses Not on filedocumented in this encounter Additional Health Concerns Assessment Noted Time PHQ-2 Depression Total Score: 1 02/15/20 24 10:24 AM EDT documented as of this encounter Care Teams Program Aide Relationship Specialty Start Date End Date Armani Campa MD [address] [address] PCP - General Family Medicine 12/25/21 documented as of this encounter
--- OUTSIDE RECORDS SUMMARY | 2025-03-23 11:05 | XMS_ITS | Encounter Summary ---
Author Organization [facility] Address [address] [place] [address] Care Team Providers Care Back Sewer Name Role Phone Armani Campa MD [...] Description 08/13/2025 8:45 AM EDT Office Visit [facility] [address] [place] [address] Armani Campa MD [address] [place] [address] documented as of this encounter Visit Diagnoses Not on filedocumented in this encounter Additional Health Concerns Assessment Noted Time PHQ-2 Depression Total Score: 1 02/15/20 24 10:24 AM EDT documented as of this encounter Care Teams Back Sewer Relationship Specialty Start Date End Date Armani Campa MD [address] [place] [address] PCP - General Family Medicine 12/25/21 documented as of this encounter
--- OUTSIDE RECORDS SUMMARY | 2025-03-23 11:05 | XMS_ITS | Encounter Summary ---
Author Organization [facility] Address [address] [place] [id number] Care Team Providers Care Cotton Roll Packer Name Role Phone Armani Campa MD Primary Care Provider + Reason for Referral * Diagnostic Imaging (Routine) - Authorized Specialty Diagnoses / Procedures Referred By Contac t Referred To Contact Diagnoses Encounter for screening mammogram for malignant neoplasm of breast Procedures Mammo Screening Digital Tomosynthesis Bilateral With CAD Armani Campa MD [address] [place] [address] Phone: tel: fax: [facility] - OUTPT PHYSICAL THERAPY [address] [facility] [address] [place] [address] Phone: tel: fax: Referral ID Status Reason Start Date Expiration Date V isits Requested Visits Authorized [id number] Authorized 03/22/2025 06/21/2026 1 1 Reason for Visit * Reason Onset Date Comments MAMMOGRAM ORDER 03/19/2025 Encounter Details Date Type Department Care Team (Late st Contact Info) Description 03/19/2025 Telephone [facility]INE [address] [place] [address] Armani Campa MD [address] [facility] [place] [address] MAMMOGRAM ORDER Social History Tobacco Use Types Packs/Day Years [...] encounter Miscellaneous Notes * Telephone Encounter - Aylin Valdovinos RegSched Rep - 03/19/2025 12:09 PM EDT Caller: Radha Vidales Relationship: Self Best call back number: [phone] What orders are you requesting (i.e. lab or imaging): MAMMOGRAM In what timeframe would the patient need to come in: WHENEVER SHE IS DUE Where will you receive your lab/imaging services: [facility] Additional notes: PATIENT ISN'T SURE OF THE EXACT DATE OF HER LAST MAMMOGRAM, BUT SHE WOULD LIKE TOMAKE SHE SHE DOESN'T MISS HER NEXT ONE. PLEASE CALL BACK TO CONFIRM WHEN SHE IS DUE documented in this encounter Plan of Treatment Upcoming Encounters Date Type Department Care Team (Late st Contact Info) Description 08/13/2025 8:45 AM EDT Office Visit [facility] [address] [address] Armani Campa MD [address] [address] Scheduled Orders Name Type Priority Associated Diagnoses Orde r Schedule Mammo Screening Digital Tomosynthesis Bilateral With CAD Imaging Routine Encounter for screening mammogram for malignant neoplasm of breast Expected: 04/05/2025, Expires: 06/22/2026 documented as of this encounter Visit Diagnoses Diagnosis Encounter for screening mammogram for malignant neoplasm of breast- Primary documented in this encounter Additional Health Concerns Assessment Noted Time PHQ-2 Depression Total Score: 1 02/15/20 24 10:24 AM EDT documented as of this encounter Care Teams Cotton Roll Packer Relationship Specialty Start Date End Date Armani Campa MD [address] [place], [place] [id number] PCP - General Family Medicine 12/25/21 documented as of this encounter
--- OUTSIDE RECORDS SUMMARY | 2025-03-23 11:05 | XMS_ITS | Encounter Summary ---
Author Organization [facility] Address [address] [place] [address] Care Team Providers Care Pharmacy Intern Name Role Phone Armani Campa MD Primary Care Provider Kylee James APRN Unavailable [phone] Faustino Topete MD Unavailable [phone] Reason for Referral * Imaging (Routine) - Authorized Specialty Diagnoses / Procedures Referred By Barrett davis Referred To Contact Radiology Diagnoses Metastatic malignant neuroendocrine tumor to liver Procedures CT Abdomen Pelvis w IV Contrast CT Abdomen Pelvis w and wo IV Contrast Kylee James APRN 800 [facility] Rosemarie Cheung [facility] [address] [place] [address] Phone: tel: fax: Referral ID Status Reason Start Date Expiration Date V isits Requested Visits Authorized [id number] Authorized 03/06/2025 09/05/2026 1 1 Encounter Details Date Type Department Care Team (Late st Contact Info) Description 03/06/2025 Orders Only [facility] [address] [place] [address] Kylee James APRN 800 [facility] Jonatan [facility] [address] [place] [address] Metastatic malignant neuroendocrine tumor to [...] drink first t volodymyr in the morning (EYE-NEWSPAPER ILLUSTRATOR) to steady your nerves or to get rid of a hangover? 0 12/02/2023 CAGE Questionnaire Score 0 024 Utilities Answer Date Recorded In the past 12 months has th e [employer], gas, oil, or water company threatened to [...] Info) Description 03/30/2025 11:00 AM EDT Appointment [facility] [address] [place] [address] 04/03/2025 10:00 AM EST Office Visit [facility] Multidisciplinary Oncology Clinic [address] [place] [address] Kylee James, SHERIE 800 [facility] [address] [place] [address] Scheduled Orders Name Type Priority Associated Diagnoses Orde r Schedule CT Abdomen Pelvis w IV Contrast Imaging Routine Metastatic malignant neuroendocrine [...] documented as of this encounter Care Teams Pharmacy Intern Relationship Specialty Start Date End Date Armani Campa MD [address] [place] [address] PCP - General 10/19/22 Kylee James APRN [address] [address] Nurse Practitioner Medical Oncology 03/30/23 Faustino Topete MD [address] [place] Rosemarie Cheung [address] [address] Consulting Physician Medical Oncology 12/01/23 documented as of this encounter
--- OUTSIDE RECORDS SUMMARY | 2025-03-23 11:05 | XMS_ITS | Encounter Summary ---
Author Organization [facility] Address [address] [place] [address] Care Team Providers Care In House Counsel Name Role Phone Armani Campa MD Primary Care Provider + Encounter Details Date Type Department Care Team (Late st Contact Info) Description 10/11/2024 Results Follow-Up [facility] MEDICINE [address] [facility] [address] [place] [address] Armani Campa MD 210 [facility] [place] [address] Social History Tobacco Use Types [...] Visit [facility] MEDICINE 210 [facility] [place] [address] Armani Campa MD [address] [place] [address] documented as of this encounter Visit Diagnoses Not on filedocumented in this encounter Additional Health Concerns Assessment Noted Time PHQ-2 Depression Total Score: 1 02/15/20 24 10:24 AM EDT documented as of this encounter Care Teams In House Counsel Relationship Specialty Start Date End Date Armani Campa MD [address] [place] [address] PCP - General Family Medicine 12/25/21 documented as of this encounter
[2025-03-23 11:15] VITALS: BP 146/81; PULSE 89; RESP 18; TEMP 36.8; O2SAT 99
[2025-03-23] MEDS: 0.9 % SODIUM CHLORIDE 1000ML 1,000 ML 999 ML IV (11:15)
[2025-03-23] MEDS: SODIUM CHLORIDE 0.9% 10ML FLUSH SYRINGE 10 ML IV (12:25)
== END 2025-03-23 23:59 | disposition home or self-care (01) ==
LOC: INF 10:53
PROVIDERS: PCP Family Medicine; Visit Provider Internal Medicine Hematology & Oncology
DX: C7A.019 Malignant carcinoid tumor of the small intestine, unspecified portion (principal); C7B.8 Other secondary neuroendocrine tumors
CPT/HCPCS: 96360; J7030

== ENCOUNTER 2025-03-29 11:51 | Outpatient (CLI) | payer MEDICARE, SELFPAY ==
--- OUTSIDE RECORDS SUMMARY | 2025-02-15 15:15 | XMS_ITS | Encounter Summary ---
Author Organization [facility] Address [address] [place] [id number] Care Team Providers Care Hotel Sales Manager Name Role Phone Armani Campa MD Primary Care Provider + Reason for Referral * Consultation (Routine) - Authorized Specialty Diagnoses / Procedures Referred By Contac t Referred To Contact Otolaryngology Diagnoses Tinnitus, unspecified laterality Vertigo Procedures [place] OFFICE/OUTPATIENT NEW MODERATE MDM 45 MINUTES Armani Campa MD [address] [place] [address] Phone: tel: fax: Eusebio Whitmore MD [address] [facility] [address] [place] [address] Phone: tel: fax: Referral ID Status Reason Start Date Expiration Date Visits Requested Visits Authorized [id number] Authorized Specialty Services Required 02/15/2025 05/17/2026 1 1 Reason for Visit * Reason Comments Medicare Wellness-subsequent Encounter Details Date Type Department Care Team (Late st Contact Info) Description 02/15/2025 3:15 PM EDT Office Visit [facility] [address] [facility] [place] [phone] Armani Campa MD 210 [place] [address] Hypokalemia (Primary Dx); Medicare annual [...] without current pathological fracture Overactive bladder Hypokalemia shelter (current) use of non-steroidal anti-inflammatories (nsaid) Neuroendocrine [...] Pneumococcal Vaccine 50+ Completed ZOSTER VACCINE Completed [facility] Preventative Services Quick Reference Risk Factors Identified During Encounter Hearing Problem: Referral to ENT ordered Immunizations Discussed/Encouraged: Influenza and COVID19 Chronic [facility] The above risks/problems [...] Campa MD on 02/15/2025: Data reviewed : Communication Clerk notes October 2024 Oncology Common labs 08/14/2024 [...] CENTER [facility] [address] [place] [address] Armani Campa MD [address] [place] [place], [place] [id number] documented as of this encounter Visit Diagnoses [...] documented as of this encounter Care Teams Hotel Sales Manager Relationship Specialty Start Date End Date Armani Campa MD [address] [place] [address] PCP - General Family Medicine 12/25/21 documented as of this encounter
--- OUTSIDE RECORDS SUMMARY | 2025-03-29 11:56 | XMS_ITS | Encounter Summary ---
Author Organization [facility] Address [address] [place] [address] Care Team Providers Care Events Administrative Assistant Name Role Phone Armani Campa MD Primary Care Provider [phone] Kylee James APRN Unavailable [phone] Faustino Topete MD Unavailable [phone] Reason for Referral * Imaging (Routine) - Authorized Specialty Diagnoses / Procedures Referred By Barrett davis Referred To Contact Radiology Diagnoses Metastatic malignant neuroendocrine tumor to liver Procedures CT Abdomen Pelvis w IV Contrast CT Abdomen Pelvis w and wo IV Contrast Kylee James APRN 800 [facility] Rosemarie Cheung [facility] [address] [place] [address] Phone: tel: fax: Referral ID Status Reason Start Date Expiration Date V isits Requested Visits Authorized [id number] Authorized 03/06/2025 09/05/2026 1 1 Encounter Details Date Type Department Care Team (Late st Contact Info) Description 03/06/2025 Orders Only [facility] [address] [place] [phone] Kylee James APRN 800 [facility] Jonatan [facility] [address] [place] [address] Metastatic malignant neuroendocrine tumor to [...] drink first t volodymyr in the morning (EYE-SCIENCE INTERPRETER) to steady your nerves or to get rid of a hangover? 0 12/02/2023 CAGE Questionnaire Score 0 024 Utilities Answer Date Recorded In the past 12 months has th e [employer], gas, oil, or water company threatened to [...] Info) Description 03/30/2025 11:[address] [facility] [address]nd [place] [address] 04/03/2025 10:00 AM EST Office Visit [facility] Multidisciplinary Oncology Clinic [address] [place] [address] Kylee James, SHERIE 800 [facility] [address] [place] [address] Scheduled Orders Name Type Priority Associated Diagnoses [...] documented as of this encounter Care Teams Events Administrative Assistant Relationship Specialty Start Date End Date Armani Campa MD [address] [place] [address] PCP - General 10/19/22 Kylee James APRN [address] [address] Nurse Practitioner Medical Oncology 03/30/23 Faustino Topete MD [address] [place] Rosemarie Cheung [address] [address] Consulting Physician Medical Oncology 12/01/23 documented as of this encounter
--- OUTSIDE RECORDS SUMMARY | 2025-03-29 11:56 | XMS_ITS | Encounter Summary ---
Author Organization [facility] Address [address] [place] [address] Care Team Providers Care Trauma Program Manager Name Role Phone Armani Campa MD [...] AM EDT Office Visit [facility] FAMILY [facility] [address] [place] [address] Armani Campa MD [address] [place] [address] documented as of this encounter Visit Diagnoses Not on filedocumented in this encounter Additional Health Concerns Assessment Noted Time PHQ-2 Depression Total Score: 1 02/15/20 24 10:24 AM EDT documented as of this encounter Care Teams Trauma Program Manager Relationship Specialty Start Date End Date Armani Campa MD [address] [place] [address] PCP - General Family Medicine 12/25/21 documented as of this encounter
--- OUTSIDE RECORDS SUMMARY | 2025-03-29 11:56 | XMS_ITS | Encounter Summary ---
Author Organization [facility] Address [address] [place] [address] Care Team Providers Care Associate Professor Of Art Name Role Phone Armani Campa MD Primary Care Provider [phone] Kylee James APRN Unavailable [phone] Faustino Topete MD Unavailable [phone] Encounter Details Date Type Department Care Team (Late st Contact Info) Description 03/05/2025 Telephone [facility] [address] [place] [address] Faustino Topete MD 800 [facility] [address] [place] [address] Social History Tobacco Use Types [...] drink first t volodymyr in the morning (EYE-COMPETITIVE INTELLIGENCE ANALYST) to steady your nerves or to [...] of day to reach caller: Call Melody [phone] Note: Please do not reply to this message. Follow-up communication and further actions as a result of this message need to be communicated with the patient directly, if the patient is not active onMyChart. If the patient is active on MyChart, they will receive notification of the communication/outcome via [employer]. documented in this encounter Plan of Treatment Upcoming Encounters Date Type Department Care Team (Late st Contact Info) Description 03/30/2025 11:00 AM EDT Appointment [facility] [address] [place] [address] 04/03/2025 10:00 AM EST Office Visit [facility] [address] [place] [address] Kylee James APRN 800 [facility] [address] [place] [address] documented as of this encounter Visit Diagnoses Not on filedocumented in this encounter Additional Health Concerns Assessment Noted Time A fall risk assessment has been complete d for the patient 12/05/2024 10:38 AM EDT A Body Mass Index follow-up plan has been documented for the patient 12/13/2023 2:27 PM EDT documented as of this encounter Care Teams Associate Professor Of Art Relationship Specialty Start Date End Date Armani Campa MD [address] [place] [address] PCP - General 10/19/22 Kylee James APRN [address] [address] Nurse Practitioner Medical Oncology 03/30/23 Faustino Topete MD [address] [address] Consulting Physician Medical Oncology 12/01/23 documented as of this encounter
--- OUTSIDE RECORDS SUMMARY | 2025-03-29 11:57 | XMS_ITS | Clinical Summary ---
Author Organization [facility] Address [address] [place] [address] Care Team Providers Care Mechanical Service Technician Name Role Phone Armani Campa [...] as directed by prescriber. 02/08/20 24 Active zoledronic acid (Reclast) 5 MG/100ML solution infusionIndication s:Age-related osteoporosis without current pathological fracture Infuse 100 mL into a venous catheter 1 (One) Time for 1 dose. 100 mL 10/11/19 25 Active amLODIPine (NORVASC) 5 MG tabletIndications: Essential hypertension Take 1 tablet by mouth Daily. 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 90 capsule 1 03/27/20 25 Active potassium chloride (Klor-Con M20) 20 MEQ CR tabletIndications: Hypokalemia Take 1 tablet by mouth Daily. 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 60 tablet 5 11/07/19 25 025 Discontin ued(Reord er) potassium chloride (Klor-Con M20) 20 MEQ CR tabletIndications: Hypokalemia Take 1 tablet by mouth Daily. 30 tablet 11 11/08/19 25 025 Discontin ued(Reord er) amLODIPine (NORVASC) 5 MG tabletIndications: Essential hypertension Take 1 tablet by mouth Daily. 90 tablet 1 02/16/20 25 025 Discontin ued(Reord er) Active Problems Problem [...] Encounters Date Type Department Care Team Description 03/26/2025 Telephone [facility] FAMILY MEDICINE [address] [place] [address] Armani Campa MD Med Management 03/19/2025 Telephone [facility] [address] [place] [address] Armani Campa MD MAMMOGRAM ORDER 02/15/2025 3:15 PM EDT Office Visit [facility] [address] [place] [place] [address] Armani Campa MD Hypokalemia (Primary Dx); Medicare [...] Description 08/13/2025 8:45 AM EDT Office Visit [facility] MED[facility] [address] [phone] Armani Campa MD [address] [address] Health Maintenance Due Date Last Done Comments DXA SCAN 01/29/2024 01/28/2022, 01/28/2022 INFLUENZA VACCINE 12/29/2024 02/28/2024, , 03/11/2022, Additional history exists COVID-19 Vaccine (5 - 2023-2 5 season) 2025 03/12/2024, 03/12/2023, [...] Documents on File Type Date Recorded Patient Health Therapist Expl anation LIVING WILL - SCAN 01/28/2022 11:09 AM [facility], [facility], 05/20/2021 Care Teams Mechanical Service Technician Relationship Specialty Start Date End Date Armani Campa MD [address] [place] [address] PCP - General Family Medicine 12/25/21
--- OUTSIDE RECORDS SUMMARY | 2025-03-29 11:57 | XMS_ITS ---
Author Organization [facility] Address [address] [place] [address] Care Team Providers Care Heel Slicker Name Role Phone Armani Campa MD Primary Care Provider [phone] Kylee James APRN Unavailable [phone] Faustino Topete MD Unavailable [phone] Active Problems Problem Noted Date Diagnosed Date [...]
--- OUTSIDE RECORDS SUMMARY | 2025-03-29 11:57 | XMS_ITS | Clinical Summary ---
Author Organization [facility] Address [address] [place] [address] Care Team Providers Care Set Up Mechanic Name Role Phone Armani Campa MD Primary Care Provider [phone] Kylee James APRN Unavailable [phone] Faustino Topete MD Unavailable [phone] Allergies No known active allergies Medications alendronate [...] (diarrhea). 90 mL 5 11/22/19 25 Active Eden [employer] Syringes [facility] Please dispense appropriate needles and syringes for octreotide injection 90 each 3 11/30/19 25 Active UltiCare Insulin Syringe 31G X 10/13 0.3 ML [facility] 12/05/19 25 Active KLOR-CON 20 MEQ [...] 03/06/2025 Orders Only [facility] [address] [place] [phone] Kylee James APRN 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) 03/05/2025 Telephone [facility] [address] [place] [phone] Faustino Topete MD 01/15/2025 Telephone [facility] [address] [place] [address] Daxa Schultz, paper twister tender from Last 3 Months Immunizations Immunization Administration Dates Next Due Influenza, high-dose, quadrivalent 03/11/2022 Joselo COVID-19 Vaccine (Blue Cap) 18+ 08/08/19 21 Moderna COVID-19 Vaccine (Harvest Field Ticketer) 12+ years Moderna COVID-19 Vaccine Bivalent 6months+ [...] drink first t volodymyr in the morning (EYE-FILM PROJECTOR OPERATOR) to steady your nerves or to [...] Info) Description 03/30/2025 11:00 AM EDT Appointment [facility] [address]nd [place] [address] 04/03/2025 10:00 AM EST Office Visit [facility] [address] [place] [address] Kylee James, SAP BUSINESS INTELLIGENCE CONSULTANT 800 [facility] Rosemarie Cheung [address] [place] [address] Health Maintenance Due Date Last [...] UKY-RSV Vaccine: 60+ Years or Completed 03/12/2024 [id number] Vaccine Completed 02/16/2025, 03/12/2024, 03/12/2023, Additional history [...] Patient has decision-making capacity? Yes Care Teams Set Up Mechanic Relationship Specialty Start Date End Date Armani Campa MD [address] [place] [address] PCP - General 10/19/22 Kylee James APRN [address] [address] Nurse Practitioner Medical Oncology 03/30/23 Faustino Topete MD [address] [facility] [address] [place] [address] Consulting Physician Medical Oncology 12/01/23
--- OUTSIDE RECORDS SUMMARY | 2025-03-29 11:57 | XMS_ITS | Encounter Summary ---
Author Organization [facility] Address [address] [place] [address] Care Team Providers Care Director Of Sustainability Name Role Phone Armani Campa MD Primary Care Provider + Reason for Visit * Reason Comments Med Refill Encounter Details Date Type Department Care Team (Late st Contact Info) Description 04/01/2023 Refill [facility] FAMILY MEDICINE [address] [place] [address] Armani Campa MD [address] [place] [address] Primary osteoarthritis of right knee [...] CENTER FAMILY MEDICINE [address] [place] [address] Armani Campa MD [address] [place] [address] documented as of this encounter Visit Diagnoses Diagnosis Primary osteoarthritis of right knee documented in this encounter Care Teams Director Of Sustainability Relationship Specialty Start Date End Date Armani Campa MD [address] [place] [address] PCP - General Family Medicine 12/25/21 documented as of this encounter
--- OUTSIDE RECORDS SUMMARY | 2025-03-29 11:57 | XMS_ITS | Encounter Summary ---
[facility] Organization [facility] Address [address] [place] [address] Care Team Providers Care Gag Writer Name Role Phone Armani Campa MD Primary Care Provider + Encounter Details Date Type Department Care Team (Late st Contact Info) Description 10/11/2024 Results Follow-Up [facility] MEDICINE 210 [facility] [place] [address] Armani Campa MD 210 [facility] [place] [address] Social History Tobacco Use Types [...] Description 08/13/2025 8:45 AM EDT Office Visit [facility] MEDICINE [address] [facility] [place] [address] Armani Campa MD [address] [place] [address] documented as of this encounter Visit Diagnoses Not on filedocumented in this encounter Additional Health Concerns Assessment Noted Time PHQ-2 Depression Total Score: 1 02/15/20 24 10:24 AM EDT documented as of this encounter Care Teams Gag Writer Relationship Specialty Start Date End Date Armani Campa MD [address] [place] [address] PCP - General Family Medicine 12/25/21 documented as of this encounter
--- OUTSIDE RECORDS SUMMARY | 2025-03-29 11:57 | XMS_ITS | Encounter Summary ---
Author Organization [facility] Address [address] [place] [address] Care Team Providers Care Government Affairs Specialist Name Role Phone Armani Campa MD Primary Care Provider + Reason for Referral * Diagnostic Imaging (Routine) - Authorized Specialty Diagnoses / Procedures Referred By Contac t Referred To Contact Diagnoses Encounter for screening mammogram for malignant neoplasm of breast Procedures Mammo Screening Digital Tomosynthesis Bilateral With CAD Armani Campa MD [address] [address] Phone: tel: fax: [facility] - OUTPT PHYSICAL THERAPY [address] [facility] [address] [place] [address] Phone: tel: fax: Referral ID Status Reason Start Date Expiration Date V isits Requested Visits Authorized [id number] Authorized 03/22/2025 06/21/2026 1 1 Reason for Visit * Reason Onset Date Comments MAMMOGRAM ORDER 03/19/2025 Encounter Details Date Type Department Care Team (Late st Contact Info) Description 03/19/2025 Telephone [facility] FAMILY MEDICINE [address] [place] [address] Armani Campa MD 210 [facility] [place] [address] MAMMOGRAM ORDER Social History Tobacco [...] Vidales Relationship: Self Best call back number: [phone] What orders are you requesting (i.e. lab or imaging): MAMMOGRAM In what timeframe would the patient need to come in: WHENEVER SHE IS DUE Where will you receive your lab/imaging services: [facility] Additional notes: PATIENT ISN'T SURE OF [...] [facility] FAM[facility] MEDICINE [address] [address] Armani [...] documented as of this encounter Care Teams Government Affairs Specialist Relationship Specialty Start Date End Date Armani Campa MD [address] [place], [place] [address] PCP - General Family Medicine 12/25/21 documented as of this encounter
--- OUTSIDE RECORDS SUMMARY | 2025-03-29 11:57 | XMS_ITS | Encounter Summary ---
[facility] Organization [facility] Address [address] [place] [address] Care Team Providers Care Rehab Services Aide Name Role Phone Armani Campa MD Primary Care Provider + Encounter Details Date Type Department Care Team (Late st Contact Info) Description 08/15/2024 Results Follow-Up [facility] [address] [facility] [place] [address] Armani Campa MD [address] [facility] [place] [address] Social History Tobacco Use Types [...] Office Visit [facility] [address] [facility] [place] [address] Armani Campa MD [address] [place] [address] documented as of this encounter Visit Diagnoses Not on filedocumented in this encounter Additional Health Concerns Assessment Noted Time PHQ-2 Depression Total Score: 1 02/15/20 24 10:24 AM EDT documented as of this encounter Care Teams Rehab Services Aide Relationship Specialty Start Date End Date Armani Campa MD [address] [place] [address] PCP - General Family Medicine 12/25/21 documented as of this encounter
--- OUTSIDE RECORDS SUMMARY | 2025-03-29 11:57 | XMS_ITS | Encounter Summary ---
Author Organization [facility] Address [address] [place] [address] Care Team Providers Care Heat Treating Bluer Name Role Phone Armani Cortes MD Primary Care Provider + Reason for Visit * Reason Onset Date Comments Med Management 03/26/2025 Encounter Details Date Type Department Care Team (Late st Contact Info) Description 03/26/2025 Telephone [facility] [address] [place] [address] Armani Cortes MD [address] [place] [address] Med Management Social History Tobacco [...] encounter Miscellaneous Notes * Telephone Encounter - Yasmine Baxter RegSched Rep - 03/26/2025 3:37 PM EDT Caller: Rdaha Vidales Relationship: Self Best call back number: [phone] Which medication are you concerned about: amLODIPine (NORVASC) 5 MG tablet diphenoxylate-atropine (Lomotil) 2.5-0.025 MG per tablet omeprazole (priLOSEC) 40 MG capsule potassium chloride (Klor-Con M20) 20 MEQ CR tablet Who prescribed you this medication: DR CORTES When did you start taking this medication: ONGOING What are your concerns: PATIENT ADVISED SHE IS NOT OUT OF MEDICATION, HOWEVER THIS LIST NEEDS TO BESENT TO [facility] ([phone]) documented in this encounter Plan of Treatment Upcoming Encounters Date Type Department Care Team (Late st Contact Info) Description 08/13/2025 8:45 AM EDT Office Visit [facility] [address] [facility] [place] [phone] Armani Cortes MD [address] [place] [address] documented as of this encounter Visit Diagnoses Diagnosis Hypokalemia Hypopotassemia 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
[2025-03-29 12:00] VITALS: BP 128/74; PULSE 77; RESP 18; TEMP 36.6; O2SAT 97
[2025-03-29] MEDS: 0.9 % SODIUM CHLORIDE 1000ML 1,000 ML 999 ML IV (12:00)
[2025-03-29 13:05] VITALS: BP 167/86; PULSE 78
== END 2025-03-29 23:59 | disposition home or self-care (01) ==
LOC: INF 11:52
PROVIDERS: PCP Family Medicine; Visit Provider Internal Medicine Hematology & Oncology
DX: C7B.8 Other secondary neuroendocrine tumors (principal); C7A.019 Malignant carcinoid tumor of the small intestine, unspecified portion
CPT/HCPCS: 96360; J7030

== ENCOUNTER 2025-04-06 10:46 | Outpatient (CLI) | payer MEDICARE, SELFPAY ==
--- OUTSIDE RECORDS SUMMARY | 2025-02-15 14:15 | XMS_ITS | Encounter Summary ---
Author Organization [facility] Address [address] [place] [phone] Care Team Providers Care Fur Grader Name Role Phone Armani Campa MD Primary Care Provider + Reason for Referral * Consultation (Routine) - Authorized Specialty Diagnoses / Procedures Referred By Contac t Referred To Contact Otolaryngology Diagnoses Tinnitus, unspecified laterality Vertigo Procedures [place] OFFICE/OUTPATIENT NEW MODERATE MDM 45 MINUTES Armani Campa MD [address] [place] [address] Phone: tel: fax: Eusebio Whitmore MD [address] [facility] [address] [place] [address] Phone: tel: fax: Referral ID Status Reason Start Date Expiration Date Visits Requested Visits Authorized [id number] Authorized Specialty Services Required 02/15/2025 05/17/2026 1 1 Reason for Visit * Reason Comments Medicare Wellness-subsequent Encounter Details Date Type Department Care Team (Late st Contact Info) Description 02/15/2025 3:15 PM EDT Office Visit [facility] [address] [facility] [place] [phone] Armani Campa MD [address] [place] [address] Hypokalemia (Primary Dx); Medicare annual wellness visit, subsequent; Annual physical exam; Essential hypertension; Neuroendocrine carcinoma metastatic to liver; S/P TKR (total knee replacement), left; Age-related osteoporosis without current pathological fracture; Tinnitus, unspecified laterality; Vertigo Social History Tobacco Use Types Packs/Day Years Used Date Smoking Tobacco: Never Smokeless Tobacco: Never Tobacco Cessation:Counseling Given: Not Answered Alcohol Use Standard Drinks/Week Comments Never 0 (1 standard drink = 0.6 oz pur e alcohol) PHQ-2 Answer Date Recorded Retired PHQ-9: Brief Depression Severity Measure Score 0 07/02/2022 PHQ-2 Answer Date Recorded Patient Health Questionnaire-2 Score 0 02/15/2025 Comments Unknown Sex and Gender Information Value Date Recorded Sex Assigned at Female 08/14/2024 7:23 AM EDT Legal Sex Female 10:26 AM EDT Gender Identity Not on file Sexual Orientation Straight 08/14/2024 7: 23 AM EDT documented as of this encounter Last Filed Vital Signs Vital Sign Reading Time Taken Comments Blood Pressure 138/65 02/15/2025 2:59 PM EDT Pulse 72 02/15/2025 2:59 PM EDT Temperature 36.2 C (97.1 F) 02/15/2025 2:59 PM EDT Respiratory Rate 20 02/15/2025 2:59 PM EDT Oxygen Saturation - - Inhaled Oxygen Concentration - - Weight 50.5 kg (111 lb 6.4 oz) 02/15/2025 2:59 P M EDT Height 154.9 cm (5' 1 ) 02/15/2025 2:59 PM EDT Body Mass Index 21.05 02/15/2025 2:59 PM EDT documented in this encounter Functional Status documented as of this encounter Progress Notes * Armani Campa MD - 02/15/2025 3:15 PM EDTAssociated Problem(s): Essential hypertension Hypertension is stable and controlled Continue current treatment regimen. Blood pressure will be reassessed in 6 months. Orders: amLODIPine (NORVASC) 5 MG tablet; Take 1 tablet by mouth Daily. * Armani Campa MD - 02/15/2025 3:15 PM EDTAssociated Problem(s): Hypokalemia * Armani Campa MD - 02/15/2025 3:15 PM EDTAssociated Problem(s): Neuroendocrine carcinoma metastatic to liver * Armani Campa MD - 02/15/2025 3:15 PM EDTAssociated Problem(s): S/P TKR (total knee replacement), left * Armani Campa MD - 02/15/2025 3:15 PM EDTAssociated Problem(s): Age- related osteoporosis without current pathological fracture * Armani Campa MD - 02/15/2025 3:15 PM EDT Images from the original note were not included. Subjective The ABCs of the Annual Wellness Visit Medicare Wellness Visit Radha Vidales is a 79 y.o. patient who presents for a Medicare Wellness Visit. The following portions of the patient's history were reviewed and updated as appropriate: allergies, current medications, past family history, past medical history, past social history, past surgical history, and problem list. Compared to one year ago, the patient's physical health is the same. Compared to one year ago, the patient's mental health is the same. Recent Hospitalizations: She was not admitted to the hospital during the last year. Current Medical Providers: Patient Care Team: Armani Campa MD as PCP - General (Family Medicine) Outpatient Medications Prior to Visit Medication Sig Dispense Refill diphenoxylate-atropine (Lomotil) 2.5-0.025 MG per tablet Take 2 tablets by mouth 4 (Four) Times a Day As Needed for Diarrhea. 60 tablet 5 Lidocaine Viscous HCl (XYLOCAINE) 2 % solution Take 10 mL by mouth Every 4 (Four) Hours As Needed for Moderate Pain. 100 mL 2 octreotide (sandoSTATIN) 200 MCG/ML injection Inject 1 mL into the appropriate muscle as directed by prescriber. omeprazole (priLOSEC) 40 MG capsule Take 1 capsule by mouth Daily. 90 capsule 1 ondansetron ODT (ZOFRAN-ODT) [address] 1 tablet on the tongue. oxyCODONE (ROXICODONE) 5 MG immediate release tablet potassium chloride (Klor-Con M20) 20 MEQ CR tablet Take 1 tablet by mouth Daily. 30 tablet 11 amLODIPine (NORVASC) 5 MG tablet Take 1 tablet by mouth Daily. 90 tablet 1 zoledronic acid (Reclast) 5 MG/100ML solution infusion Infuse 100 mL into a venous catheter 1 (One)Time for 1 dose. 100 mL 0 prochlorperazine (COMPAZINE) 10 MG tablet Take 1 tablet by mouth Every 6 (Six) Hours As Needed for Nausea or Vomiting. No facility-administered medications prior to visit. Opioid medication/s are on active medication list. and I have evaluated her active treatment plan and pain score trends (see table). Vitals: 02/15/25 1459 PainSc: 0-No pain I have reviewed the chart for potential of high risk medication and harmful drug interactions in the elderly. Aspirin is not on active medication list. Aspirin use is not indicated based on review of current medical condition/s. Risk of harm outweighs potential benefits. . Patient Active Problem List Diagnosis Neuroendocrine tumor S/P TKR (total knee replacement), left Primary osteoarthritis of right knee Essential hypertension Age-related osteoporosis without current pathological fracture Overactive bladder Hypokalemia [facility] (current) use of non-steroidal anti-inflammatories (nsaid) Neuroendocrine carcinoma metastatic to liver Gastrointestinal hemorrhage Advance Care Planning Advance Directive is on file. ACP discussion was held with the patient duringthis visit. Patient has an advance directive in EMR which is still valid. Objective Vitals: 02/15/25 1459 BP: 138/65 Pulse: 72 Resp: 20 Temp: 97.1 ??F (36.2 ??C) Weight: 50.5 kg (111 lb 6.4 oz) Height: 154.9 cm (61 ) PainSc: 0-No pain Estimated body mass index is 21.05 kg/m?? as calculated from the following: Height as of this encounter: 154.9 cm (61 ). Weight as of this encounter: 50.5 kg (111 lb 6.4 oz). BMI is within normal parameters. No other follow-up for BMI required. Does the patient have evidence of cognitive impairment? No Health Risk Assessment Smoking Status: Social History Tobacco Use Smoking Status Never Smokeless Tobacco Never Alcohol Consumption: Social History Substance and Sexual Activity Alcohol Use Never Fall Risk Screen STEADI Fall Risk Assessment was completed, and patient is at LOW risk for falls.Assessment completed on:02/15/2025 Depression Screening Little interest or pleasure in doing things? Not at all Feeling down, depressed, or hopeless? Not at all PHQ-2 Total Score 0 Health Habits and Functional and Cognitive Screenin02/08/2025 10:02 PM Functional & Cognitive Status Do you have difficulty preparing food and eating? No Do you have difficulty bathing yourself, getting dressed or grooming yourself? No Do you have difficulty using the toilet? No Do you have difficulty moving around from place to place? No Do you have trouble with steps or getting out of a bed or a chair? No Current Diet Well Balanced Diet Dental Exam Up to date Eye Exam Up to date Exercise (times per week) 7 times per week Current Exercises Include Walking Do you need help using the phone? No Are you deaf or do you have serious difficulty hearing? No Do you need help to go to places out of walking distance? No Do you need help shopping? No Do you need help preparing meals? No Do you need help with housework? No Do you need help with laundry? No Do you need help taking your medications? No Do you need help managing money? No Do you ever drive or ride in a car without wearing a seat belt? No Have you felt unusual fatigue (could be tiredness), stress, anger or loneliness in the last month? No Who do you live with? Child If you need help, do you have trouble finding someone available to you? No Have you been bothered in the last four weeks by sexual problems? No Do you have difficulty concentrating, remembering or making decisions? No Age-appropriate Screening Schedule: Refer to the list below for future screening recommendations based on patient's age, sex and/or medical conditions. Orders for these recommended tests are listed in the plan section. The patient has been provided with a written plan. Health Maintenance List Health Maintenance Topic Date Due DXA SCAN 01/29/2024 COVID-19 Vaccine (2023- season) 2025 (Originally 01/29/2025) INFLUENZA VACCINE 03/01/2025 (Originally 12/29/2024) ANNUAL WELLNESS VISIT 02/15/2026 TDAP/TD VACCINES (3 - Td or Tdap) 12/20/2033 RSV Vaccine - Adults Completed Pneumococcal Vaccine 50+ Completed ZOSTER VACCINE Completed [facility] Preventative Services Quick Reference Risk Factors Identified During Encounter Hearing Problem: Referral to ENT ordered Immunizations Discussed/Encouraged: Influenza and COVID19 [facility] The above risks/problems have been discussed with the patient. Pertinent information has been shared with the patient in the After Visit Summary. An After Visit Summary and PPPS were made available to the patient. Follow Up: Next Medicare Wellness visit to be scheduled in 1 year. Additional E&M Note during same encounter follows: Patient has additional, significant, and separately identifiable condition(s)/problem(s) that require work above and beyond the Medicare Wellness Visit Chief Complaint Medicare Wellness-subsequent Subjective HPI Susan is also being seen today for an annual adult preventative physical exam. Review of Systems Gastrointestinal: Positive for diarrhea. All other systems reviewed and are negative. Objective Vital Signs: BP 138/65 Pulse 72 Temp 97.1 ??F (36.2 ??C) Resp 20 Ht 154.9 cm (61 ) Wt 50.5 kg (111 lb 6.4 oz) BMI 21.05 kg/m?? Physical Exam Constitutional: General: She is not in acute distress. Appearance: Normal appearance. She is not ill-appearing. HENT: Head: Normocephalic and atraumatic. Right Ear: Tympanic membrane and ear canal normal. Left Ear: Tympanic membrane and ear canal normal. Nose: Nose normal. Mouth/Throat: Mouth: Mucous membranes are moist. Pharynx: Oropharynx is clear. No posterior oropharyngeal erythema. Eyes: Extraocular Movements: Extraocular movements intact. Conjunctiva/sclera: Conjunctivae normal. Pupils: Pupils are equal, round, and reactive to light. Cardiovascular: Rate and Rhythm: Normal rate and regular rhythm. Pulses: Normal pulses. Heart sounds: Normal heart sounds. Pulmonary: Effort: Pulmonary effort is normal. No respiratory distress. Breath sounds: Normal breath sounds. Abdominal: General: Abdomen is flat. Bowel sounds are normal. Palpations: Abdomen is soft. Tenderness: There is no abdominal tenderness. Musculoskeletal: General: Normal range of motion. Cervical back: Normal range of motion and neck supple. Lymphadenopathy: Cervical: No cervical adenopathy. Skin: General: Skin is warm and dry. Capillary Refill: Capillary refill takes less than 2 seconds. Neurological: General: No focal deficit present. Mental Status: She is alert and oriented to person, place, and time. Mental status is at baseline. Cranial Nerves: No cranial nerve deficit. Sensory: No sensory deficit. Motor: No weakness. Psychiatric: Mood and Affect: Mood normal. Behavior: Behavior normal. Thought Content: Thought content normal. Judgment: Judgment normal. The following data was reviewed by: Armani Campa MD on 02/15/2025: Data reviewed : Hadoop Application Developer notes October 2024 Oncology Common labs 08/14/2024 14:30 10/10/2024 11:18 11/10/2024 16:02 Common Labs Glucose 88 BUN 10 Creatinine 0.70 Sodium 140 Potassium 4.4 3.7 Chloride 106 Calcium 9.2 WBC 6.30 Hemoglobin 11.7 Hematocrit 37.8 Platelets 138 Details This result is from an external source. Assessment and Plan Additional age appropriate preventative wellness advice topics were discussed during today's preventative wellness exam(some topics already addressed during AWV portion of the note above): Physical Activity: Advised cardiovascular activity 150 minutes per week as tolerated. (example brisk walk for 30 minutes, 5 days a week). Motor Vehicle Safety Discussion: Wearing Seatbelt While in Motor Vehicle recommendation. Adhering to posted speed limit recommendation. Injury Prevention Discussion: Information shared in after visit summary. Medicare annual wellness visit, subsequent Annual physical exam Essential hypertension Hypertension is stable and controlled Continue current treatment regimen. Blood pressure will be reassessed in 6 months. Orders: amLODIPine (NORVASC) 5 MG tablet; Take 1 tablet by mouth Daily. 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 Patient was given instructions and counseling regarding her condition or for health maintenance advice. Please see specific information pulled into the AVS if appropriate. documented in this encounter Plan of Treatment Upcoming Encounters Date Type Department Care Team (Late st Contact Info) Description 08/13/2025 8:45 AM EDT Office Visit [facility] [address] [place] [address] Armani Campa MD [address] [place], [place] [id number] documented as of this encounter Visit Diagnoses Diagnosis Hypokalemia- Primary Hypopotassemia Medicare annual wellness visit, subsequent Annual physical exam Routine general medical examination at a health care facility Essential hypertension Unspecified essential hypertension Neuroendocrine carcinoma metastatic to liver S/P TKR (total knee replacement), left Age-related osteoporosis without current pathological fracture Tinnitus, unspecified laterality Vertigo Dizziness and giddiness documented in this encounter Additional Health Concerns Assessment Noted Time PHQ-2 Depression Total Score: 1 02/15/20 24 10:24 AM EDT documented as of this encounter Care Teams Fur Grader Relationship Specialty Start Date End Date Armani Campa MD [address] [place] [address] PCP - General Family Medicine 12/25/21 documented as of this encounter
--- OUTSIDE RECORDS SUMMARY | 2025-03-30 09:32 | XMS_ITS | Encounter Summary ---
Author Organization [facility] Address [address] [id number] Care Team Providers Care Explosives Engineer Name Role Phone Armani Campa MD Primary Care Provider [phone] Kylee James APRN Unavailable [phone] Faustino Topete MD Unavailable Reason for Referral * Imaging (Routine) - Closed Specialty Diagnoses / Procedures Referred By Barrett davis Referred To Contact Radiology Diagnoses Metastatic malignant neuroendocrine tumor to liver Procedures CT Abdomen Pelvis w IV Contrast CT Abdomen Pelvis w and wo IV Contrast Kylee Jmaes APRN [address] [address] Phone: tel: fax: Referral ID Status Reason Start Date Expiration Date Visits Re quested Visits Authorized [id number] Closed 03/06/2025 09/05/2026 1 1 Reason for Visit * Imaging (Routine) - Closed Specialty Diagnoses / Procedures Referred By Barrett davis Referred To Contact Radiology Diagnoses Metastatic malignant neuroendocrine tumor to liver Procedures CT Abdomen Pelvis w IV Contrast CT Abdomen Pelvis w and wo IV Contrast Kylee James APRN [address] [facility] [address] [place] [address] Phone: tel: fax: Referral ID Status Reason Start Date Expiration Date Visits Re quested Visits Authorized [id number] Closed 03/06/2025 09/05/2026 1 1 Encounter Details Date Type Department Care Team (Latest Contact Info) Description 03/30/2025 10:32 AM EDT - 03/30/2025 11:59 PM EDT Hospital Encounter [facility] [address] [place] [address] Metastatic malignant neuroendocrine tumor to liver Discharge Disposition: Home or Self Care Social History Tobacco Use Types Packs/Day Years [...] drink first t volodymyr in the morning (EYE-SILVERWARE CLEANER) to steady your nerves or to get rid of a hangover? 0 12/02/2023 CAGE Questionnaire Score 0 024 Utilities Answer Date Recorded In the past 12 months has th e [employer], gas, oil, or water company threatened to shut off services in your home? No 12/01/2023 Comments No Sex and Gender Information Value Date Recorded Sex Assigned at Female 01/15/2023 1:11 PM EDT Legal Sex Female 6:44 PM EDT Gender Identity Female 01/15/2023 1:11 PM EDT Sexual Orientation Not on file documented as of this encounter Medications at Time of Discharge alendronate (Fosamax) 70 MG tablet Take 1 tablet (70 mg) by mouth once a week. 12/25/2021 amLODIPine (Norvasc) 10 MG tablet Take 1 tablet (10 mg) by mouth 1 (one) time each day in the morning. Calcium Carb-Cholecalcifero l (CALCIUM 1000 + D PO) Cyanocobalamin (VITAMIN B-12 PO) Take 1 each by mouth 1 (one) time each day. diphenoxylate-atrop ine (Lomotil) 2.5-0.025 MG tablet Take 1 tablet by mouth 4 (four) times a day if needed for diarrhea. 120 tablet 3 11/05/2023 KLOR-CON 20 MEQ ER tablet 12/04/2024 loperamide (Imodium A-D) 2 MG tabletIndications:M alignant neuroendocrine neoplasm (CMS/HCC),Diarrhea, unspecified type Take 1 tablet (2 mg) by mouth every 3 (three) hours if needed for diarrhea. Do not exceed 8 tablets in a day. Alternate with lomotil. 240 tablet 3 11/05/2023 loratadine (Claritin) 10 MG tablet Take 1 tablet (10 mg) by mouth 1 (one) time each day in the morning. meloxicam (Mobic) 15 MG tablet Take 1 tablet (15 mg) by mouth Q AM PRN for mild pain. 11/27/2023 [place] & Syringes [facility] Please dispense appropriate needles and syringes for octreotide injection 90 each 3 11/29/2024 octreotide (SandoSTATIN) 1000 MCG/ML injectionIndication s:Malignant neuroendocrine neoplasm (CMS/HCC) Inject 0.2 mL under the skin 3 times a day as needed (diarrhea). 90 mL 5 11/21/2024 omeprazole (PriLOSEC) [address] capsuleIndications: Gastroesophageal reflux disease, unspecified whether esophagitis present TAKE 1 CAPSULE EVERY DAY 1 HOUR PRIOR TO MEAL (DO NOT CRUSH OR CHEW. SUBSTITUTED FOR PRILOSEC) 90 capsule 3 10/07/2023 potassium chloride CR (K-Tab) 20 MEQ ER tablet Take 1 tablet by mouth daily. 08/17/2024 prochlorperazine (Compazine) 10 MG tablet Take 1 tablet by mouth every 6 hours as needed for nausea or vomiting. 12/14/2023 UltiCare Insulin Syringe 31G X 10/[address] [facility] 12/04/2024 documented as of this encounter Miscellaneous Notes * Barbra Johnson - 03/30/2025 10:33 AM EDT Images from the original note were not included. 1639 Caring for Yourself after Contrast Imaging If you had ORAL contrast: ? You can go back to your normal diet and activities as tolerated. ? Drink plenty of fluids, unless told otherwise. If you had IV contrast: ? You can go back to your normal diet and activities as tolerated. ? Drink plenty of fluids, unless told otherwise. ? Leave a bandage on the site for 30 minutes (where the IV was inserted or blood was drawn). If you had Intravesical (bladder) contrast: ? Return to normal diet and activity. What you need to know about delayed reaction to IV contrast What is IV Contrast? ? Contrast is a dye that is put into your body through an IV. ? It is used for imaging scans such as CT scans and MRIs. ? The contrast makes blood vessels, organs and other parts of your body show up better on the scan. What do I need to do after IV contrast? ? Drink lots of fluids. This will help flush the contrast out of your system. ? Drink 2-3 extra glasses or bottles of water within 4 hours of your scan. What is a contrast reaction? ? A contrast reaction is a bad side effect from the contrast dye. ? It is rare but it does happen. ? They can be mild - such as sneezing, itching, or hives. ? They can be severe - such as trouble breathing, throat swelling, and irregular heart beat. When do these reactions happen? ? They often happen right after the contrast is injected. ? Some happen hours after going home. Go to the nearest Emergency Department right away if you have any of these symptoms after you leavethe clinic or hospital. ? Sneezing ? Itching in your mouth, throat, eyes, ears, or skin ? Rash or hives ? Throwing up or stomach sickness ? High heart rate or ?racing? of your heart ? Feeling dizzy or woozy ? Feeling short of breath or like you can?t take a deep breath ? Feeling very anxious for no other reason It is very important that these reactions be treated. Tell the doctor or nurse that you are having a reaction to IV contrast dye. Do not ignore any sign of a reaction! All reactions must be assessed by a doctor. Call 911 if you are alone and your reaction is more than mild sneezing or itching. If you have a mild reaction, call to speak with a Radiologist, explain that you havehad a contrast reaction, as this needs to be added to your medical record. documented in this encounter Plan of Treatment Upcoming Encounters Date Type Department Care Team (Late st Contact Info) Description 10/02/2025 11:00 AM EDT Office Visit [facility] Multidisciplinary Oncology Clinic [address] [place] [phone] Kylee James, FILM WRITER [address] [place] [address] documented as of this encounter Procedures Procedure Name Priority Date/Time Associated Diagnosis Comments CT ABDOMEN PELVIS W IV CONTRAST Routine 03/30/2025 11:26 AM EDT Metastatic malignant neuroendocrine tumor to liver documented in this encounter Results * CT Abdomen Pelvis w IV Contrast (03/30/2025 11:26 AM EDT) Anatomical Region Laterality Modality Abdomen, Pelvis Computed Tomogra phy Impressions 03/30/2025 12:08 PM EDT No significant progression of disease in the interval. Fluid identified in the ascending colon to suggest clinical presentation of diarrhea disease. Mild wall thickening identified of the small bowel with tethering of the mesenteric fat surrounding the existing stable mesenteric mass. No signs of obstruction. Remainder of the CT of the abdomen and pelvis is grossly unremarkable no acute intra- abdominal or pelvic abnormality. CRITICAL RESULT: No. COMMUNICATION: Per this written report. Drafted by Patti Gibbs MD on 03/30/2025 11:46 AM Final report signed by Patti Gibbs MD on 03/30/2025 12:08 PM Narrative 03/30/2025 12:08 PM EDT CLINICAL INDICATION: Abdominal pain, acute, nonlocalized TECHNIQUE: Multiple axial CT images were obtained from lung bases through pubic symphysis following administration of IV contrast, Omnipaque 300, 100 mL. Delayed images of abdomen and kidneys were also obtained. Reformatted images in the coronal and sagittal planes were generated from the axial data set to facilitate diagnostic accuracy. Total DLP (Dose-Length Product): 317.96 mGy.cm. Please note: The reported value represents the total of one or more individual components during the CT acquisition on this date and at this time, and as such, the same value may appear in more than one CT report depending on the interpreting/reporting physicians. COMPARISON: 12/01/2023 06/11/2023 FINDINGS: Lower Chest: Stable nodular thickening identified along the right hemidiaphragm at the right lung base. Findings may suggest a small herniation of liver parenchyma versus focal pleural thickening. The lung bases themselves are otherwise revealing chronic changes with no acute parenchymal disease. Solid Abdominal Organs: Stable low-attenuation lesions identified within the liver. Largest again is identified posteriorly within the right lobe measuring 1.2 cm previously measured 1.1 cm. Gallbladder is not visualized. The pancreas is homogeneous. Spleen is unremarkable. Both adrenal glands are within normal limits. Symmetric appearance of the kidneys. There is areas of cortical thinning to suggest scarring. Renal cortical cyst identified bilaterally. Small calcifications bilaterally with nonobstructing stones. GI Tract/Mesentery/Peritoneum: Stomach is unremarkable. Small hiatal hernia. There is a mild wall thickening identified of the small bowel with some tethering identified of the mesenteric fat surrounding the persistent mesenteric mass. The remainder the small bowel is grossly unremarkable. No signs of obvious obstruction the abnormal soft tissue mass identified within the small bowel mesentery measures approximately 2.8 cm in its largest dimension. This is stable and unchanged in size and appearance. There is fluid identified in the colon. Findings to suggest clinical presentation of diarrhea disease. Pelvic Viscera: The bladder is mildly distended. No gross mass or lesion. The uterus is unremarkable. Lymph Nodes/Vasculature: Stable lymph node identified in the left periaortic region measuring 1.1 cm in its largest short axis dimension. This is similar and unchanged when compared to the prior study. No new adenopathy. No pelvic adenopathy. Vascular calcification seen diffusely throughout the abdominal aorta and iliac vessels. Free Fluid: Trace fluid identified in the pelvis. Musculoskeletal and Body Wall: Bony structures reveal no evidence of acute or aggressive osseous abnormality. No ventral abdominal wall mass or defect. Multiple nodules identified in the gluteal soft tissues bilaterally to suggest possible prior injection sites. Procedure Note Patti Gibbs MD - 03/30/2025 CLINICAL INDICATION: Abdominal pain, acute, nonlocalized TECHNIQUE: Multiple axial CT images were obtained from lung bases through pubicsymphysis following administration of IV contrast, Omnipaque 300, 100 mL.Delayed images of abdomen and kidneys were also obtained. Reformattedimages in the coronal and sagittal planes were generated from the axialdata set to facilitate diagnostic accuracy. Total DLP (Dose-Length Product): 317.96 mGy.cm. Please note: The reportedvalue represents the total of one or more individual components during theCT acquisition on this date and at this time, and as such, the same valuemay appear in more than one CT report depending on theinterpreting/reporting physicians. COMPARISON: 12/01/2023 06/11/2023 FINDINGS: Lower Chest: Stable nodular thickening identified along the righthemidiaphragm at the right lung base. Findings may suggest a smallherniation of liver parenchyma versus focal pleural thickening. The lungbases themselves are otherwise revealing chronic changes with no acuteparenchymal disease. Solid Abdominal Organs: Stable low-attenuation lesions identified withinthe liver. Largest again is identified posteriorly within the right lobemeasuring 1.2 cm previously measured 1.1 cm. Gallbladder is notvisualized. The pancreas is homogeneous. Spleen is unremarkable. Bothadrenal glands are within normal limits. Symmetric appearance of thekidneys. There is areas of cortical thinning to suggest scarring. Renalcortical cyst identified bilaterally. Small calcifications bilaterallywith nonobstructing stones. GI Tract/Mesentery/Peritoneum: Stomach is unremarkable. Small hiatalhernia. There is a mild wall thickening identified of the small bowel withsome tethering identified of the mesenteric fat surrounding the persistentmesenteric mass. The remainder the small bowel is grossly unremarkable. Nosigns of obvious obstruction the abnormal soft tissue mass identifiedwithin the small bowel mesentery measures approximately 2.8 cm in itslargest dimension. This is stable and unchanged in size and appearance.There is fluid identified in the colon. Findings to suggest clinicalpresentation of diarrhea disease. Pelvic Viscera: The bladder is mildly distended. No gross mass or lesion.The uterus is unremarkable. Lymph Nodes/Vasculature: Stable lymph node identified in the leftperiaortic region measuring 1.1 cm in its largest short axis dimension.This is similar and unchanged when compared to the prior study. No newadenopathy. No pelvic adenopathy. Vascular calcification seen diffuselythroughout the abdominal aorta and iliac vessels. Free Fluid: Trace fluid identified in the pelvis. Musculoskeletal and Body Wall: Bony structures reveal no evidence of acuteor aggressive osseous abnormality. No ventral abdominal wall mass ordefect. Multiple nodules identified in the gluteal soft tissuesbilaterally to suggest possible prior injection sites. IMPRESSION: No significant progression of disease in the interval. Fluid identified inthe ascending colon to suggest clinical presentation of diarrhea disease.Mild wall thickening identified of the small bowel with tethering of themesenteric fat surrounding the existing stable mesenteric mass. No signsof obstruction. Remainder of the CT of the abdomen and pelvis is grosslyunremarkable no acute intra-abdominal or pelvic abnormality. CRITICAL RESULT: No. COMMUNICATION: Per this written report. Drafted by Patti Gibbs MD on 03/30/2025 11:46 AM Final report signed by Patti Gibbs MD on 03/30/2025 12:08 PM Kylee James APRN IMG CT PROCEDURES Final Res ult documented in this encounter Visit Diagnoses Diagnosis Metastatic malignant neuroendocrine tumor to liver documented in this encounter Administered Medications Inactive Administered Medications - up to 3 most recent administrations Medication Order MAR Action Action Date Dose Rate Site iohexol (OMNIPaque) 300 MG/ML injection 100 mL 100 mL, Intravenous, Once in imaging, 1 dose, Starting on Wed03/30/25 at 1033, Until Wed03/30/25 at 1118, Routine, Imaging Protocol Orders Given 03/30/2025 11:18 AM EDT 100 mL iohexol (OMNIPaque) 9 MG/ML oral contrast 500 mL 500 mL, Oral, Once in imaging, 1 dose, Starting on Wed03/30/25 at 1033, Until Wed03/30/25 at 1045, Routine, Imaging Protocol Orders Given 03/30/2025 10:45 AM EDT 500 mL documented in this encounter Additional Health Concerns Assessment Noted Time A fall risk assessment has been complete d for the patient 12/05/2024 10:38 AM EDT A Body Mass Index follow-up plan has been documented for the patient 12/13/2023 2:27 PM EDT documented as of this encounter Care Teams Explosives Engineer Relationship Specialty Start Date End Date Armani Campa MD [address] [place] [address] PCP - General 10/19/22 Kylee James APRN [address] Jonatan [facility] [address] [place] [address] Nurse Practitioner Medical Oncology 03/30/23 Faustino Topete MD [address] [facility] [address] [phone] Consulting Physician Medical Oncology 12/01/23 documented as of this encounter
--- OUTSIDE RECORDS SUMMARY | 2025-04-03 10:00 | XMS_ITS | Encounter Summary ---
Author Organization [facility] Address [address] 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 0 12/02/2023 CAGE Questionnaire Score 0 024 Utilities Answer Date Recorded In the past 12 months has th e [employer], gas, oil, or water company threatened to shut off services in your home? No 12/01/2023 Comments No Sex and Gender Information Value Date Recorded Sex Assigned at Female 01/15/2023 1:11 PM EDT Legal Sex Female 6:44 PM EDT Gender Identity Female 01/15/2023 1:11 PM EDT Sexual Orientation Not on file documented as of this encounter Miscellaneous Notes * Progress Notes - Kylee James, SENIOR JAVA DEVELOPER - 04/03/2025 10:00 AM EST Images from the original note were not included. Division of Medical Oncology PROGRESS NOTE Patient Name: Radha Vidales Date of : 1945 79 y.o. PCP:Armani Campa MD Date: 04/03/2025 Telehealth Statement Patient Verification Patient identity has been confirmed using name and date of ? Yes Authorizations and Agreements/Telemedicine Consent sent and consent confirmed? Yes Patient Location: Home/Other Patient confirms they are physically located in [place]? Yes If the patient is not physically located in [place], the provider has confirmed with [facility] thatthe provider is authorized to provide services in patient's stated location? N/A Provider Location: [facility] facility Audio and video or audio only? Audio and video Total visit time: 40 minutes Chief Complaint: Follow up and scan review Assessment/Plan A: Continues to be clinically stable after D/C from hospice for terminal SBO for [...] serotonin but low tumor bulk P: - RTC 6 months via TH with CBCD, CMP, CGA, serotonin, Mg++. Labs to be ordered at [facility]. - Continue weekly IVF at [facility] as needed, ok to decrease frequency if she doesn't feel like she is getting benefit from them and diarrhea is controlled with medication - continue octreotide to 200 mcg TID prn - Continue lomotil prn, usually takes 2-3 times/day. Discussed that she can increase octreotide injections and decrease lomotil, whichever provides more benefit (not using imodium at this time) - CBCD, CMP, CGA, serotonin, Mg++ next available, plans to get this Wednesday with IVF at [facility] - Will likely need Mg, K replacement. Will call after CMP results Subjective Interval Histories: 10/27/2022: Ms. Vidales presents today with her son for follow-up and review of scans. 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 She has been having intermittent, non-frequent episodes [...] or pain, 06/29/23: Ms. Vidales presents via today to follow up on changes made [...] to have diarrhea controlled with lomotil/prn subcu oct (which she takes about 1 times/wk). She is back driving and taking walks. She goes to movies with her twin sister. She is maintaining her wt (had lost down to 99#'s) despite averaging 6 stools/day- someof which can be watery. She denies any pain or cramping or bleeding. She feels like her legs are still weak. 12/05/24: The patient presents today for follow up and continuation of treatment with Octreotide thatshe uses about one time per day prn. She continues to get IVFs at [facility] once aweek. She is staking KCL 20 meq daily. Diarrhea well controlled with Lomotil and Octreotide prn. Has good QOL and seems to be handling disease/treatment well. No other significant clinical findings. 04/03/25: Presents today via for follow up and scan review. Scans stable. Does not sequela of diarrhea disease. History of Present Illness The patient is an 79-year-old female who presents via virtual visit for follow- up and a scan reviewfor her neuroendocrine tumor. 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 She is accompanied by an adult male. The patient has not yet reviewed her recent scan results. She reports experiencing diarrhea 4 to 5 times daily, which she attributes to cyclical patterns rather than dietary intake. Has had more episodes than normal in the past 2 days. She administers octreotide injections herself and receives weekly fluid infusions at [facility]. She reports no significant changes in her condition, except for a mild burning sensation in her kidneys occasionally. Her last laboratory tests were conducted in 11/2024. She reports no leg swelling, shortness of breath, or excessive coughing. Typically, she administers one injection daily but increases it to two when experiencing increased diarrhea, which she finds beneficial. Additionally, she takes Lomotil orally 2 to 3 times daily during these episodes. She does not use Imodium. She reports no pain associated with her diarrhea and overall feels stable with good energy levels. HPI History of Present Illness: 08/14/20 Ms. [...] abdominal pain, CT scan noted mesenteric mass Oncology History Malignant neuroendocrine neoplasm (CMS/HCC) 09/05/2020 Cancer Staged Staging form: Jejunum and Ileum - Neuroendocine Tumors, AJCC 8th Edition, Clinical stage from 09/05/2020: Stage IV (cT0, cM1b) - Signed by Faustino Topete MD on 10/22/2022 10/22/2022 Initial Diagnosis Malignant neuroendocrine neoplasm (CMS/HCC) Past Medical, Surgical, Family and Social History: Reviewed and unchanged from most recent clinic visit or updated as indicated. Past Medical History[1] Surgical History[2] Social History[3] Family History[4] Allergies Allergies[5] Medications Reviewed by me during today's visit. Review of Systems - Oncology 14 pt review of systems performed and negative except as noted in HPI. Objective Exam limited d/t telehealth Vitals -- N/A as telehealth Performance Status ECO GENERAL: Sitting comfortably in NAD HEENT: PERRLA/EOMI, anicteric, Speech is fluent, no cough, facial muscles are symmetric; hearing isintact without hearing aids NECK: No appreciable thyromegaly or adenopathy. Neck ROM is normal; HEART: FELISHA RESPIRATORY: Normal work of breathing on room air, no audible wheezes ABDOMEN: FELISHA EXTREMITIES: BUE- moving normally without restriction, FELISHA BLE MUSCULOSKELETAL: No deformities noted on BUE, head, and neck SKIN: No visible rashes or lesions on BUE, head, and neck NEURO: Grossly nonfocal; no localizing deficits of strength or mentation, Alert, Oriented x 3, intact cranial nerves. PSYCHIATRIC: Normal mood and thought content Results: No visits with results within 1 Week(s) from this visit. Latest known visit with [...] 1449 (H) 50 - 220 ng/mL Final CHROMOGRANIN A 11/10/2024 1622 (H) <93 ng/mL Final Fasting greater than or equal to 8* 11/10/2024 Yes Final 5-Hydroxyindoleacetic Acid (HIAA),* 11/10/2024 58 (H) <=22 ng/ml Final Magnesium, Plasma 11/10/2024 1.5 (L) 1.9 - 2.4 mg/dL Final Imaging: === 03/30/25 === CT ABDOMEN PELVIS W IV CONTRAST - Narrative - CLINICAL INDICATION: Abdominal pain, acute, nonlocalized TECHNIQUE: [...] the small bowel is grossly unremarkable. No signsof obvious obstruction the abnormal soft tissue mass identified within the small bowel mesentery measures approximately 2.8 cm in its largest dimension. This is stable and unchanged in size and appearance. There is fluid identified in the colon. Findings to suggest clinical presentation of diarrheadisease. Pelvic Viscera: The bladder is mildly distended. [...] defect. Multiple nodules identified in the gluteal softtissues bilaterally to suggest possible prior injection sites. - Impression - No significant progression of disease in the interval. Fluid identified in the ascending colon to suggest clinical presentation of diarrhea disease. Mild wall thickening identified of the small bowelwith tethering of the mesenteric fat surrounding the existing stable mesenteric mass. No signs of obstruction. Remainder of the CT of the abdomen and pelvis is grossly unremarkable no acute intra-abdominal or pelvic abnormality. CRITICAL RESULT: No. COMMUNICATION: Per this written report. Drafted by Patti Gibbs MD on 03/30/2025 11:46 AM Final report signed by Patti Gibbs MD on 03/30/2025 12:08 PM - I counseled the patient regarding risk and benefits of the current plan of management as outlinedabove. - I visualized the recent imaging and discussed the current radiology findings with the patient in detail and released the report gave copies of the reports to the patient and answered all questions. - I have reviewed the supportive records [...] at the time of treatment. - Patient's questions were all answered, seemingly, to their satisfaction. Should new symptoms and/or signs and/or additional questions develop, they will contact us. 40 minutes was spent on this encounter; including preparing to see the patient, which involved review/interpretation of diagnostics and reports; obtaining and/or reviewing separately obtained history; performing appropriate physical exam; ordering/scheduling medications, tests or procedures; communicating findings and counseling/educating the patient, family and/or caregiver; documentation in EMR; and care coordination. The selection, dosing and administration of anti-cancer [...] of associated toxicities in patients with cancer. Attending physician previously developed plan of care, which I discussed with the patient, whom I saw independently. The patient verbalized understanding and agrees with plan. All questions answered to their satisfaction. Encouraged to call should other questions/concerns arise. Kylee James APRN [facility] Division of Medical Oncology [facility] [address] [place] [address] [1] Past Medical History: Diagnosis Date Heartburn Heartburn Hypertension Neuroendocrine tumor Unspecified osteoarthritis, unspecified site Arthritis [2] Past Surgical History: Procedure Laterality Date CATARACT EXTRACTION TOTAL KNEE ARTHROPLASTY [3] Social History Tobacco Use Smoking status: Never Smokeless tobacco: Never Substance Use Topics Alcohol use: Never Drug use: Never [4] Family History Problem Relation Name Age of Onset Diabetes Mother [5] No Known Allergies documented in this encounter Plan of Treatment Upcoming Encounters Date Type Department Care Team (Late st Contact Info) Description 10/02/2025 11:00 AM EDT Office Visit [facility] Multidisciplinary Oncology Clinic [address] [place] [phone] Kylee James APRN 800 [facility] [address] [place] [address] Scheduled Orders Name Type Priority Associated Diagnoses Orde r Schedule Magnesium Lab Routine Metastatic malignant neuroendocrine tumor to liver Expected: 04/03/2025 (Approximate), Expires: 10/05/2026 Chromogranin A Lab Routine Metastatic malignant neuroendocrine tumor to liver Expected: 04/03/2025 (Approximate), Expires: 10/05/2026 Serotonin, Serum Lab Routine Metastatic malignant neuroendocrine tumor to liver Expected: 04/03/2025, Expires: 10/05/2026 CBC and differential Lab Routine Metastatic malignant neuroendocrine tumor to liver Expected: 04/03/2025 (Approximate), Expires: 10/05/2026 Comprehensive metabolic panel Lab Routine Metastatic malignant neuroendocrine tumor to liver Expected: 04/03/2025 (Approximate), Expires: 10/05/2026 documented as of this encounter Visit Diagnoses Diagnosis Metastatic malignant neuroendocrine tumor to liver- Primary 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 neuroendocrine tumor of bone Diarrhea, unspecified type Weakness of both lower extremities documented in this encounter Additional Health Concerns Assessment Noted Time A fall risk assessment has been complete d for the patient 12/05/2024 10:38 AM EDT A Body Mass Index follow-up plan has been documented for the patient 12/13/2023 2:27 PM EDT documented as of this encounter Care Teams First Aid Attendant Relationship Specialty Start Date End Date Armani Campa MD [address] [place] [address] PCP - General 10/19/22 Klyee James APRN [address] [phone] Nurse Practitioner Medical Oncology 03/30/23 Faustino Topete MD [address] [phone] Consulting Physician Medical Oncology 12/01/23 documented as of this encounter
--- OUTSIDE RECORDS SUMMARY | 2025-04-06 10:48 | XMS_ITS | Continuity of Care Document ---
[facility] Organization [facility] Address [address] [place] [address] Care Team Providers Care Ballistics Expert Name Role Phone ARMANI CORTES Referring Provider ARMANI CORTES Primary Care Provider [phone] Assessment No assessment recorded. Plan of Treatment Reminders Order Date Submit Date Provider Last Modified By Organization Details Last Modified Time Details Appointments RECHECK 2024 01:45P M GRETCHEN SOLIS III, MD Not available Not available Not available Lab None recorded. Referral None recorded. Procedures None recorded. Surgeries None recorded. Imaging None recorded. Medication Orders amoxicill in 875 mg tablet [address] [facility], [address], [address], 03/28/2025 16:34:28 Flonase Sensimist 27.5 mcg/actua tion nasal spray,bessie pension [address] [facility], [address], [address], 03/28/2025 16:34:28 Patient TargetsNo targets recorded. Patient Instructions Encounter Date Encounter Id Patient Instructions Last Modified By Organization Details Last Modified Time 03/28/2025 [id number] 1. Audiogram obtained in office today. Results discussed with patient. 2. Bilateral cerumenectomy performed in office today. Full risks, complications, and benefits of non-operative intervention have been thoroughly discussed. Understanding was expressed, informed consent given, and we will proceed with the discussed treatment plan. There were no questions for me at the end of the office visit. 3. Rx-Flonase Sensimist Apply 2 sprays into right nostril QD 4. Rx - Amoxicillin 875; 10 days BID 5. F/u in one month becky Not available 03/28/2025 14:42:53 Reason for Referral None Reported. Results Created Date Observation Date Name Description Value Unit Range Abnormal Flag Note LastModifiedBy Organization Detail LastModifiedTime 03/29/2003/28/2025 audio gram No observ ation record ed. BARCODE Not Available 2024 09:07:29 Result Notes None recorded. Procedures Surgical History Date Name Laterality Status Provider Name and Address Organization Details Recorded Time 03/28/20 Tympanogram completed AME RICHARDSON [address] [place], [address], [facility] 03/28/2025 15:09:19 03/28/20 Audiogram completed AME RICHARDSON [address] [place], [address], [facility] 03/28/2025 15:09:16 03/28/20 Cerumen removal - Instruments, Bilateral completed Yulia Olvera [facility] 03/28/2025 14:18:41 Knee arthroscopy/catia malachi completed Beverly Mahmood [facility] 07/02/2022 14:43:48 Imaging Results None recorded. Procedure Notes None recorded. Medical Equipment None Reported. Allergies No known drug allergies Medications Name Sig Start Date Stop Date Status Note LastModified by Organization Details LastModified Time oxybutynin chloride ER 10 mg tablet,ext ended release 24 hr Take 1 tablet every day by oral route. 07/02 completed Not Available Not Available Not Available omeprazole 40 mg capsule,de layed release Take 1 capsule every day by oral route. active Not Available Not Available No t Available amoxicilli n 875 mg tablet Take 1 tablet every 12 hours by oral route for 10 days. 2024 active Not Available Not Available Not Avai lable solifenaci n 10 mg tablet Take 1 tablet every day by oral route for 90 days. 03/28 completed Not Available Not Available Not Available meloxicam 03/28 completed Not Available Not Available Not Available alendronat e active No Longer Taking Not Available Not Available Not Available calcium 03/28 completed Not Available Not Available Not Available Pepcid 03/28 completed Not Available Not Available Not Available diphenoxyl ate-atropi ne active Not Available Not Available Not Available Claritin active Not Available Not Avai lable Not Available amlodipine 2024 active Not Available Not Available Not Avai lable potassium active Not Available Not Danya ilable Not Available octreotide acetate active Not Available Not Available Not Available Flonase Sensimist 27.5 mcg/actuat ion nasal spray,susp ension [place] two sprays into the right nostril once daily for 30 days 2024 active Not Available Not Available Not Avai lable Vitals Date Recorded Body height Body mass index (BMI) Body weight Body temperature Heart rate Systolic And Diastolic Provider Name and Address Organization Details Last Updated DateTime 154.94 cm 21.2 kg/m2 10454.3 5 g 97.8 [degF] 76 /min 143/80 mm[Hg] Kyle Alegre [facility] 13:55:31 Social History Question Answer Notes LastModified by Organizat ion Details LastModified Time Tobacco Smoking Status Never Smoker Beverly Mahmood [facility] 07/02/2022 14:43:28 Is Blood Transfusion Acceptable In An Emergency? Yes [email or web address] Information not available 03/28/2025 What Is Your Home Situation? Mother [email or web address] Information not available 03/28/2025 What Was The Date Of Your Most Recent Tobacco Screening? 03/28/2025 [email or web address] Information not available 03/28/2025 What Is Your Relationship Status? Information not available 07/02/2022 Sex: Unknown Functional Status Question Answer Note LastModified by Organizat ion Details LastModified Time Do you use any illicit or recreational drugs? No [email or web address] Information not available 03/28/2025 What is your level of alcohol consumption? None Information not available 07/02/2022 Mental Status None recorded. Family History Relationship Description Onset Age of this Age Resolved Age Notes LastModified by Organization Details LastModified Time Mother Diabetes mellitus [email or web address] Not available 2024 13:26:32 Mother Hypertensive disorder [email or web address] Not available 2024 13:26:32 Unspecified Relation Hearing loss [email or web address] Not available 03/01 13:26:32 Unspecified Relation Family history of malignant neoplasm [email or web address] Not available 2024 13:26:32 Medical History Condition Response Arthritis Y Hypertension Y Gynecological HistoryNo gynecological history recorded. Obstetrics History GPAL:G 0 P 0 0 0 0 Past Encounters Encounter ID Performer Location Encounter Start Date Encounter Closed Date Diagnosis/Indication Diagnosis SNOMED-CT Code Diagnosis ICD10 Code Diagnosis IMO Codes Diagnosis Note [id number] GRETCHEN SOLIS III, MD [place] [facility] [address] [facility] [place] [address] 03/28/2025 13:26:31 04/02/2025 21:33:05 Tinnitus 85639490 H93.19 [id number] Vertigo 652549110 R42 50324 Impacted c erumen of bilateral ears 7944442111 709912 H61.23 359592 Sensorineu ral hearing loss of bilateral ears 552248021 H90.3 87506591 Acute righ t otitis media 270876824 H66.91 [id number] She has more of a subacute otitis that has not responded well to medical management . Like to treat this and be prepared to consider ear tube placement if this does not clear over the next 4 weeks. [id number] AME RICHARDSON [facility] [address] [facility] [place] [address] 03/28/2025 13:31:55 03/28/2025 15:10:28 Bilateral tinnitus 8190901901 102 H93.13 515934 Dizziness 750061507 R42 24802 Dysfunctio n of right eustachian tube 4621665977 186480 H69.91 68302899 Mixed cond uctive AND sensorineural hearing loss 95830242 H90.A31 43132613 Health Concerns Section Related Observation LastModified by Organization Detai ls LastModified Time None Recorded Concern Status LastModified by Organization Details LastModified Time None Recorded Payers Encounter Date Sequence Insurance Name Policy Number Policy Bowen Covered Member ID Bowen Member ID Guarantor Name 03/28/2025 1 [place] [facility] [place] (MEDICARE REPLACEMENT HMO) [id number] Radha Vidales [id number] Radha iVdales Notes Date Note Type Note Provider Name and Address Organization Details Recorded Time 03/28/2025 text/html ROS as noted in the HPI Radha (79F) presents to the office, ref. Armani Cortes, for assessment of tinnitus and vertigo. She has noticed a decrease in hearing on her right side over the last several months. She is also noticing problems with her balance since that time. She denies any prior history of otologic surgery or trauma. She does have a history of high-frequency hearing loss but has not been tested recently. GRETCHEN SOLIS III, MD [address] [place] [address], [address], [facility] 03/28/2025 15:15:30 OBGyn Episode No OBEpisode recorded.
--- OUTSIDE RECORDS SUMMARY | 2025-04-06 10:48 | XMS_ITS | Clinical Summary ---
Author Organization [facility] Address [address] [place] [address] Care Team Providers Care Farm Machine Tender Name Role Phone Armani Campa MD Primary Care Provider [phone] Kylee James APRN Unavailable [phone] Faustino Topete MD Unavailable [phone] Allergies No known active allergies Medications alendronate [...] (diarrhea). 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) 03/05/2025 Telephone [facility] [address] [place] [address] Faustino Topete MD 01/15/2025 Telephone [facility] [address] [place] [address] Daxa Schultz, home teaching grades 9 thru 12 teacher from Last 3 Months Immunizations Immunization Administration Dates Next Due Influenza, high-dose, quadrivalent 03/11/2022 Joselo COVID-19 Vaccine (Blue Cap) 18+ 08/08/19 21 Moderna COVID-19 Vaccine (Vp Analysis) 12+ years Moderna COVID-19 Vaccine Bivalent 6months+ [...] first t volodymyr in the morning (EYE-DIRECTOR ECONOMIC) to steady your nerves or to get [...] Description 10/02/2025 11:00 AM EDT Office Visit [facility] [address] [place] [address] Kylee James, SHERIE [address] [facility] [address] [place] [address] Health Maintenance Due Date Last Done Comments [...] UKY-RSV Vaccine: 60+ Years or Completed 03/12/2024 [id number] Vaccine Completed 02/16/2025, 03/12/2024, 03/12/2023, Additional history [...] EDT Metastatic malignant neuroendocrine tumor to liver from Last 3 Months Results * CT Abdomen Pelvis w IV [...] MD on 03/30/2025 12:08 PM Kylee James INSPECTOR BRAKE LINING IMG CT PROCEDURES Final Res ult from Last 3 Months Insurance HERON MEDICARE Advance Directives * DNR/DNI (Latest Code [...] Patient has decision-making capacity? Yes Care Teams Farm Machine Tender Relationship Specialty Start Date End Date Armani Campa MD [address] [place] [id number] PCP - General 10/19/22 Kylee James APRN [address] [address] Nurse Practitioner Medical Oncology 03/30/23 Faustino Topete MD [address] [address] Consulting Physician Medical Oncology 12/01/23
--- OUTSIDE RECORDS SUMMARY | 2025-04-06 10:48 | XMS_ITS | Encounter Summary ---
Author Organization [facility] Address [address] [place] [address] Care Team Providers Care Curtain Supervisor Name Role Phone Armani Campa MD Primary Care Provider [phone] Kylee James APRN Unavailable [phone] Faustino Topete MD Unavailable [phone] Encounter Details Date Type Department Care Team (Late st Contact Info) Description 03/05/2025 Telephone [facility] [address] [place] [address] Faustino Topete MD 800 [facility] [address] [place] [address] Social History Tobacco Use Types [...] drink first t volodymyr in the morning (EYE-TOOTH POLISHER) to steady your nerves or to get [...] of day to reach caller: Call Melody [phone] Note: Please do not reply to this message. Follow-up communication and further actions as a result of this message need to be communicated with the patient directly, if the patient is not active onMyChart. If the patient is active on MyChart, they will receive notification of the communication/outcome via [employer]. documented in this encounter Plan of Treatment Upcoming Encounters Date Type Department Care Team (Late st Contact Info) Description 10/02/2025 11:00 AM EDT Office Visit [facility] [address] [place] [address] Kylee James, EMPLOYEE RELATIONS REPRESENTATIVE 800 [facility] [address] [address] documented as of this encounter Visit Diagnoses Not on filedocumented in this encounter Additional Health Concerns Assessment Noted Time A fall risk assessment has been complete d for the patient 12/05/2024 10:38 AM EDT A Body Mass Index follow-up plan has been documented for the patient 12/13/2023 2:27 PM EDT documented as of this encounter Care Teams Curtain Supervisor Relationship Specialty Start Date End Date Armani Campa MD [address] [place] [address] PCP - General 10/19/22 Kylee James APRN [address] [address] Nurse Practitioner Medical Oncology 03/30/23 Faustino Topete MD [address] [place] Rose[address] Cheung [address] [address] Consulting Physician Medical Oncology 12/01/23 documented as of this encounter
--- OUTSIDE RECORDS SUMMARY | 2025-04-06 10:48 | XMS_ITS | Encounter Summary ---
Author Organization [facility] Address [address] [place] [address] Care Team Providers Care General Assistant Name Role Phone Armani Campa MD Primary Care Provider + Reason for Referral * Diagnostic Imaging (Routine) - Authorized Specialty Diagnoses / Procedures Referred By Contac t Referred To Contact Diagnoses Encounter for screening mammogram for malignant neoplasm of breast Procedures Mammo Screening Digital Tomosynthesis Bilateral With CAD Armani Campa MD [address] [place] [address] Phone: tel: fax: [facility] [address] [facility] [address] [place] [address] Phone: tel: fax: Referral ID Status Reason Start Date Expiration Date V isits Requested Visits Authorized [id number] Authorized 03/22/2025 06/21/2026 1 1 Reason for Visit * Reason Onset Date Comments MAMMOGRAM ORDER 03/19/2025 Encounter Details Date Type Department Care Team (Late st Contact Info) Description 03/19/2025 Telephone [facility] [address] [place] [address] Armani Campa MD [address] [facility] [address] MAMMOGRAM ORDER Social History Tobacco [...] Vidales Relationship: Self Best call back number: [phone] What orders are you requesting (i.e. lab or imaging): MAMMOGRAM In what timeframe would the patient need to come in: WHENEVER SHE IS DUE Where will you receive your lab/imaging services: [facility] Additional notes: PATIENT ISN'T SURE OF THE EXACT DATE OF HER LAST MAMMOGRAM, BUT SHE WOULD LIKE TOMAKE SHE SHE DOESN'T MISS HER NEXT ONE. PLEASE CALL BACK TO CONFIRM WHEN SHE IS DUE documented in this encounter Plan of Treatment Upcoming Encounters Date Type Department Care Team (Late st Contact Info) Description 08/13/2025 8:45 AM EDT Office Visit [facility] [address] [...] documented as of this encounter Care Teams General Assistant Relationship Specialty Start Date End Date Armani Campa MD [address] [place] [place], [place] [phone] PCP - General Family Medicine 12/25/21 documented as of this encounter
--- OUTSIDE RECORDS SUMMARY | 2025-04-06 10:48 | XMS_ITS | Encounter Summary ---
Author Organization [facility] Address [address] [place] [address] Care Team Providers Care Director Of Education And Training Name Role Phone Armani Cortes MD Primary Care Provider + Reason for Visit * Reason Onset Date Comments Med Management 03/26/2025 Encounter Details Date Type Department Care Team (Late st Contact Info) Description 03/26/2025 Telephone [facility] [address] [place] [address] Armani Cortes MD [address] [place] [address] Med Management Social History Tobacco [...] Rep - 03/26/2025 3:37 PM EDT Caller: Radha Vidales Relationship: Self Best call back number: [phone] Which medication are you concerned about: amLODIPine [...] THIS LIST NEEDS TO BESENT TO MARIAJOSE ([phone]) documented in this encounter Plan of Treatment Upcoming Encounters Date Type Department Care Team (Late st Contact Info) Description 08/13/2025 8:45 AM EDT Office Visit [facility] [address] [facility] [place] [phone] Armani Cortes MD [address] [place] [address] documented as of this encounter Visit Diagnoses Diagnosis Hypokalemia Hypopotassemia 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
--- OUTSIDE RECORDS SUMMARY | 2025-04-06 10:48 | XMS_ITS | Encounter Summary ---
Author Organization [facility] Address [address] [place] [address] Care Team Providers Care Hospice Superintendent Name Role Phone Armani Campa MD Primary Care Provider [phone] Kylee James APRN Unavailable [phone] Faustino Topete MD Unavailable [phone] Reason for Referral * Imaging (Routine) - Closed Specialty Diagnoses / Procedures Referred By Barrett davis Referred To Contact Radiology Diagnoses Metastatic malignant neuroendocrine tumor to liver Procedures CT Abdomen Pelvis w IV Contrast CT Abdomen Pelvis w and wo IV Contrast Kylee James APRN 800 [facility] Rosemarie Cheung [facility] [address] [place] [address] Phone: tel: fax: Referral ID Status Reason Start Date Expiration Date Visits Re quested Visits Authorized [id number] Closed 03/06/2025 09/05/2026 1 1 Encounter Details Date Type Department Care Team (Late st Contact Info) Description 03/06/2025 Orders Only [facility] [address] [place] [phone] Kylee James APRN 800 [facility] Jonatan [facility] [address] [place] [address] Metastatic malignant neuroendocrine tumor to [...] drink first t volodymyr in the morning (EYE-PARTS CASTING MACHINE OPERATOR) to steady your nerves or to get rid of a hangover? 0 12/02/2023 CAGE Questionnaire Score 0 024 Utilities Answer Date Recorded In the past 12 months has th e [employer], gas, oil, or water [employer] threatened to shut off services in your [...] Description 10/02/2025 11:00 AM EDT Office Visit [facility] [address] [place] [address] Kylee James, CUPOLA LINER HELPER 800 [facility] [address] [place] [address] documented as of this encounter Results * CT Abdomen Pelvis [...] Patti Gibbs MD on 03/30/2025 12:08 PM us Kylee James APRN IMG CT PROCEDURES Final Res ult documented in this encounter Visit Diagnoses Diagnosis Metastatic malignant neuroendocrine tumor to liver- Primary Metastatic malignant neuroendocrine tumor to liver documented in this encounter Additional Health Concerns Assessment Noted Time A fall risk assessment has been complete d for the patient 12/05/2024 10:38 AM EDT A Body Mass Index follow-up plan has been documented for the patient 12/13/2023 2:27 PM EDT documented as of this encounter Care Teams Hospice Superintendent Relationship Specialty Start Date End Date Armani Campa MD [address] [place] [address] PCP - General 10/19/22 Kylee James APRN 800 [facility] [address] [place] [address] Nurse Practitioner Medical Oncology 03/30/23 Faustino Topete MD 800 [facility] [address] [phone] Consulting Physician Medical Oncology 12/01/23 documented as of this encounter
--- OUTSIDE RECORDS SUMMARY | 2025-04-06 10:48 | XMS_ITS | Encounter Summary ---
Author Organization [facility] Address [address] [place] [address] Care Team Providers Care Computer Systems Design Analyst Name Role Phone Armani Campa MD Primary Care Provider + Encounter Details Date Type Department Care Team (Late st Contact Info) Description 10/11/2024 Results Follow-Up [facility] [address] [facility] [place] [address] Armani Campa MD 210 [facility] [place] [address] Social History Tobacco Use Types [...] Description 08/13/2025 8:45 AM EDT Office Visit [facility] 210 [facility] [place] [address] Armani Campa MD [address] [place] [address] documented as of this encounter Visit Diagnoses Not on filedocumented in this encounter Additional Health Concerns Assessment Noted Time PHQ-2 Depression Total Score: 1 02/15/20 24 10:24 AM EDT documented as of this encounter Care Teams Computer Systems Design Analyst Relationship Specialty Start Date End Date Armani Campa MD [address] [place] [address] PCP - General Family Medicine 12/25/21 documented as of this encounter
--- OUTSIDE RECORDS SUMMARY | 2025-04-06 10:48 | XMS_ITS | Encounter Summary ---
Author Organization [facility] Address [address] [place] [address] Care Team Providers Care Naval Engineer Name Role Phone Armani Campa MD [...] [facility] [address] [place] [address] Armani Campa MD [address] [place] [address] documented as of this encounter Visit Diagnoses Not on filedocumented in this encounter Additional Health Concerns Assessment Noted Time PHQ-2 Depression Total Score: 1 02/15/20 24 10:24 AM EDT documented as of this encounter Care Teams Naval Engineer Relationship Specialty Start Date End Date Armani Campa MD [address] [place] [address] PCP - General Family Medicine 12/25/21 documented as of this encounter
--- OUTSIDE RECORDS SUMMARY | 2025-04-06 10:48 | XMS_ITS | Encounter Summary ---
[facility] Address [address] [place] [address] Care Team Providers Care Break And Load Operator Name Role Phone Armani Campa MD Primary Care Provider + Encounter Details Date Type Department Care Team (Late st Contact Info) Description 08/15/2024 Results Follow-Up [facility] [address] [facility] [place] [address] Armani Campa MD [address] [facility] [place] [address] Social History Tobacco Use Types [...] Description 08/13/2025 8:45 AM EDT Office Visit [facility] [address] [facility] [place] [address] Armani Campa MD [address] [place] [address] documented as of this encounter Visit Diagnoses Not on filedocumented in this encounter Additional Health Concerns Assessment Noted Time PHQ-2 Depression Total Score: 1 02/15/20 24 10:24 AM EDT documented as of this encounter Care Teams Break And Load Operator Relationship Specialty Start Date End Date Armani Campa MD [address] [place] [address] PCP - General Family Medicine 12/25/21 documented as of this encounter
--- OUTSIDE RECORDS SUMMARY | 2025-04-06 10:49 | XMS_ITS ---
Author Organization [facility] Address [address] [place] [address] Care Team Providers Care Laborer/Grade Check Name Role Phone Armani Campa MD Primary Care Provider [phone] Kylee James APRN Unavailable [phone] Faustino Topete MD Unavailable [phone] Active Problems Problem Noted Date Diagnosed Date [...]
--- OUTSIDE RECORDS SUMMARY | 2025-04-06 10:49 | XMS_ITS | Encounter Summary ---
[facility] Address [address] [place] [address] Care Team Providers Care Cosmetic Sales Assistant Name Role Phone Armani Campa MD Primary Care Provider + Reason for Visit * Reason Comments Med Refill Encounter Details Date Type Department Care Team (Late st Contact Info) Description 04/01/2023 Refill [facility] [address] [place] [address] Armani Campa MD [address] [place] [address] Primary osteoarthritis of right knee [...] CENTER FAMILY MEDICINE [address] [place] [address] Armani Campa MD [address] [place] [address] documented as of this encounter Visit Diagnoses Diagnosis Primary osteoarthritis of right knee documented in this encounter Care Teams Cosmetic Sales Assistant Relationship Specialty Start Date End Date Armani Campa MD [address] [address] PCP - General Family Medicine 12/25/21 documented as of this encounter
--- OUTSIDE RECORDS SUMMARY | 2025-04-06 10:49 | XMS_ITS | Continuity of Care Document ---
Author Organization [facility] Address [address] [place] [address] Care Team Providers Care Sawmill Relief Worker Name Role Phone ARMANI CORTES Referring Provider ARMANI CORTES Primary Care Provider Assessment No assessment recorded. Plan of Treatment Reminders Order Date Submit Date Provider Last Modified By Organization Details Last Modified Time Details Appointments RECHECK 2024 01:45P M GRETCHEN SOLIS III, MD Not available Not available Not available Lab None recorded . Referral None recorded . Procedures None recorded . Surgeries None recorded . Imaging None recorded . Medication Orders None recorded . Patient TargetsNo targets recorded. Patient InstructionsNo instructions recorded. Reason for Referral None Reported. Results Created Date Observation Date Name Description Value Unit Range Abnormal Flag Note LastModifiedBy Organization Detail LastModifiedTime 03/29/2003/28/2025 audio gram No observ ation record ed. BARCODE Not Available 2024 09:07:29 Result Notes None recorded. Procedures Surgical History Date Name Laterality Status Provider Name and Address Organization Details Recorded Time 03/28/20 Tympanogram completed AME RICHARDSON [address] [place], [address], [facility] 03/28/2025 15:09:19 03/28/20 25 Audiogram completed AME RICHARDSON [address] [place], [address], [facility] 03/28/2025 15:09:16 03/28/20 25 Cerumen removal - Instruments, Bilateral completed Yulia Olvera [facility] 03/28/2025 14:18:41 Knee arthroscopy/catia malachi completed Beverly Mahmood [facility] 07/02/2022 14:43:48 Imaging Results None [...] Sensimist 27.5 mcg/actuat ion nasal spray,susp ension [place] two sprays into the right nostril once daily for 30 days 2024 active Not Available Not Available Not Avai lable Vitals Date Recorded Body height Body mass index (BMI) Body weight Body temperature Heart rate Systolic And Diastolic Provider Name and Address Organization Details Last Updated DateTime 154.94 cm 21.2 kg/m2 51773.3 5 g 97.8 [degF] 76 /min 143/80 mm[Hg] Kyle Alegre [facility] 13:55:31 Social History Question Answer Notes LastModified by Organizat ion Details LastModified Time Tobacco Smoking Status Never Smoker [facility] 07/02/2022 14:43:28 Is Blood Transfusion Acceptable In [...] ICD10 Code Diagnosis IMO Codes Diagnosis Note [id number] MD HAYDEN MOLINA III [facility] [address] [facility] [place] [address] 03/28/2025 13:26:31 04/02/2025 21:33:05 Tinnitus 60837750 H93.19 [id number] Vertigo 078333336 R42 38686 Impacted c erumen of bilateral ears 4688018776 095376 H61.23 183254 Sensorineu ral hearing loss of bilateral ears 425625976 H90.3 48255246 Acute righ t otitis media 253711326 H66.91 [id number] She has more of a subacute otitis that has not responded well to medical management . Like to treat this and be prepared to consider ear tube placement if this does not clear over the next 4 weeks. [id number] RAYRAY HDZ, AME BLAKE [facility] [address] [facility] [place] [address] 03/28/2025 13:31:55 03/28/2025 15:10:28 Bilateral tinnitus 5536196108 102 H93.13 296085 Dizziness 006776048 R42 62867 Dysfunctio n of right eustachian tube 7151644160 630540 H69.91 33905476 Mixed cond uctive AND sensorineural hearing loss 69703394 H90.A31 [id number] Health Concerns Section Related Observation LastModified by Organization Detai ls LastModified Time None Recorded Concern Status LastModified by Organization Details LastModified Time None Recorded Payers Encounter Date Sequence Insurance Name Policy Number Policy Bowen Covered Member ID Bowen Member ID Guarantor Name 03/28/2025 1 [employer]: LYNN MACHADOBS [facility] MEDIBLUE PLUS (MEDICARE REPLACEMENT HMO) [id number] Radha Vidales [id number] Radha Vidales Notes Date Note Type [...] been tested recently. GRETCHEN SOLIS III, MD [address], [place], [address], [place] [facility] 03/28/2025 15:15:30 OBGyn Episode No OBEpisode recorded.
--- OUTSIDE RECORDS SUMMARY | 2025-04-06 10:49 | XMS_ITS | Clinical Summary ---
Author Organization [facility] Address [address] [place] [address] Care Team Providers Care Leather Etcher Name Role Phone Armani Campa MD Primary [...] Assessment & Plan (02/15/2025 4:46 PM EDT): retirement (current) use of n on-steroidal anti-inflammatories (nsaid) 12/25/2021 Encounters Date Type Department Care Team Description 03/26/2025 Telephone [facility] [address] [place] [address] Armani Campa MD Med Management 03/19/2025 Telephone [facility] [address] [place] [address] Armani Campa MD MAMMOGRAM ORDER 02/15/2025 3:15 PM EDT Office Visit [facility] [address] [place] [address] Armani Campa MD Hypokalemia (Primary Dx); Medicare [...] Description 08/13/2025 8:45 AM EDT Office Visit [facility] [address] [place] [phone] Armani Campa MD [address] [address] [...] Documents on File Type Date Recorded Patient Government Relations Analyst Expl anation LIVING WILL - SCAN 01/28/2022 11:09 AM [facility], [facility], 05/20/2021 Care Teams Leather Etcher Relationship Specialty Start Date End Date Armani Campa MD [address] [place] [address] PCP - General Family Medicine 12/25/21
--- OUTSIDE RECORDS SUMMARY | 2025-04-06 10:49 | XMS_ITS | Encounter Summary ---
Author Organization [facility] Address [address] [place] [address] Care Team Providers Care Inspector Penetrant Name Role Phone Armani Campa MD Primary Care Provider [phone] Kylee James APRN Unavailable [phone] Faustino Topete MD Unavailable [phone] Encounter Details Date Type Department Care Team (Latest Contact Info) Description 03/30/2025 Travel Social History Tobacco Use Types Packs/Day [...] drink first t volodymyr in the morning (EYE-DENTAL ASSISTANT) to steady your nerves or to get rid of a hangover? 0 12/02/2023 CAGE Questionnaire Score 0 024 Utilities Answer Date Recorded In the past 12 months has th e [employer], gas, oil, or water company threatened to [...] Description 10/02/2025 11:00 AM EDT Office Visit [facility] [address] [place] [address] Kylee James APRN [address] [address] documented as of this encounter Visit Diagnoses Not on filedocumented in this encounter Additional Health Concerns Assessment Noted Time A fall risk assessment has been complete d for the patient 12/05/2024 10:38 AM EDT A Body Mass Index follow-up plan has been documented for the patient 12/13/2023 2:27 PM EDT documented as of this encounter Care Teams Inspector Penetrant Relationship Specialty Start Date End Date Armani Campa MD [address] [place] [address] PCP - General 10/19/22 Kylee James APRN [address] [address] Nurse Practitioner Medical Oncology 03/30/23 Faustino Topete MD [address] [address] Consulting Physician Medical Oncology 12/01/23 documented as of this encounter
--- OUTSIDE RECORDS SUMMARY | 2025-04-06 10:49 | XMS_ITS | Encounter Summary ---
Author Organization [facility] Address [address] [place] [address] Care Team Providers Care Mix Maker Name Role Phone Armani Campa MD Primary Care Provider [phone] Kylee James APRN Unavailable Faustino Topete MD Unavailable Encounter Details Date Type Department Care Team (Latest Contact Info) Description 04/02/2025 Travel Social History Tobacco Use Types Packs/Day [...] drink first t volodymyr in the morning (EYE-PROGRAM HOST) to steady your nerves or to get rid of a hangover? 0 12/02/2023 CAGE Questionnaire Score 0 024 Utilities Answer Date Recorded In the past 12 months has th e [employer], gas, oil, or water company threatened to [...] Description 10/02/2025 11:00 AM EDT Office Visit [facility] Mult[facility]isciplinary Oncology Clinic [address] [place] [address] Kylee James APRN [address] [address] documented as of this encounter Visit Diagnoses Not on filedocumented in this encounter Additional Health Concerns Assessment Noted Time A fall risk assessment has been complete d for the patient 12/05/2024 10:38 AM EDT A Body Mass Index follow-up plan has been documented for the patient 12/13/2023 2:27 PM EDT documented as of this encounter Care Teams Mix Maker Relationship Specialty Start Date End Date Armani Campa MD [address] [place] [address] PCP - General 10/19/22 Kylee James APRN [address] [address] Nurse Practitioner Medical Oncology 03/30/23 Faustino Topete MD [address] [address] Consulting Physician Medical Oncology 12/01/23 documented as of this encounter
--- OUTSIDE RECORDS SUMMARY | 2025-04-06 10:49 | XMS_ITS | Data Portability ---
Author Organization [facility] RADHA Rice [facility] Address [address] [place] [address] Care Team Providers Care Employee Relations Advisor Name Role Phone ARMANI CORTES Referring Provider ARMANI CORTES Primary Care Provider [phone] Assessment Encounter Date Assessment Date Assessment LastModified by Organization Details LastModified Time 07/02/2022 07/02/2022 Symptoms consistent with bladder spasms and overactive bladder. Trial of Vesicare. [email or web address] Not available 07/04/2022 15:48:22 08/20/2022 08/20/2022 Medical management of overactive bladder with Vesicare. Follow up in 6 months. [email or web address] Not available 08/20/2022 14:51:37 Plan of Treatment Reminders Order Date Submit Date Provider Last Modified By Organization Details Last Modified Time Details Appointments RECHECK 2024 01:45P M GRETCHEN SOLIS III, MD Not available Not available Not available Lab urinalysi s panel, auto 2022 023 4 [facility] With [address] , [address], [place], [address], 08/21/2022 08:02:57 urinalysi s panel, auto 2022 [email or web address] [place] [address] With [facility], [address] [place] [address] , [address], [place], [address], 07/07/2022 09:27:49 Referral None recorded. Procedures None recorded. Surgeries None recorded. Imaging None recorded. Medication Orders amoxicill in 875 mg tablet [address] [facility] [address] [facility], [address], [address], 03/28/2025 16:34:28 Flonase Sensimist 27.5 mcg/actua tion nasal spray,bessie pension [address] [facility] [address] [facility], [address], [address], 03/28/2025 16:34:28 solifenac in 10 mg tablet [address] [facility] [address] [facility], [address], [address], 03/28/2025 13:50:32 solifenac in 10 mg tablet [address] [facility] [address] [facility], [address], [address], 03/28/2025 13:50:32 Patient TargetsNo targets recorded. Patient Instructions Encounter Date Encounter Id Patient Instructions Last Modified By Organization Details Last Modified Time 08/20/2022 [id number] learning about healthy weight [email or web address] Not available 08/21/2022 08:02:57 03/28/2025 [id number] 1. Audiogram obtained in office today. Results [...] days BID 5. F/u in one month [email or web address] Not available 03/28/2025 14:42:53 Reason for Referral None Reported. Results Created Date Observation Date Name Description Value Unit Range Abnormal Flag Note LastModifiedBy Organization Detail LastModifiedTime 07/02/1907/02/2022 urina lysis panel , auto Unknown Analyte Clean Catch Not Available [facility] With [address], [place], [address], 07/02/2022 14:45:06 07/02/19 23 07/02/2022 urina lysis panel , auto Unknown Analyte Yellow Not Available Count includes the [facility] With [address], [place], [address], 07/02/2022 14:45:06 07/02/19 23 07/02/2022 urina lysis panel , auto Unknown Analyte Clear Not Available Count includes the [facility] With [address], [place], [address], 07/02/2022 14:45:06 07/02/19 23 07/02/2022 urina lysis panel , auto Unknown Analyte 1.005 Not Available Count includes the [facility] With [address], [place], [address], 07/02/2022 14:45:06 07/02/19 23 07/02/2022 urina lysis panel , auto Unknown Analyte 1.003- 1.035 Not Available [facility] With [address], [place], [address], 07/02/2022 14:45:06 07/02/19 23 07/02/2022 urina lysis panel , auto Unknown Analyte 8.0 Not Available Count includes the [facility] With [address], [place], [address], 07/02/2022 14:45:06 07/02/19 23 07/02/2022 urina lysis panel , auto Unknown Analyte 5.0-8. 0 Not Available [facility] With [place] [address] [address], [place], [address], 07/02/2022 14:45:06 07/02/19 23 07/02/2022 urina lysis panel , auto Unknown Analyte Negati ve Not Available [facility] With [address], [place], [address], 07/02/2022 14:45:06 07/02/19 23 07/02/2022 urina lysis panel , auto Unknown Analyte Negati ve Not Available [facility] With [address] Priyanka Lopez, [place], [address], 07/02/2022 14:45:06 07/02/19 23 07/02/2022 urina lysis panel , auto Unknown Analyte Negati ve Not Available [facility] With [address] Pri[address] Lopez, [place], [address], 07/02/2022 14:45:06 07/02/19 23 07/02/2022 urina lysis panel , auto Unknown Analyte Negati ve Not Available [facility] With [address], [place], [address], 07/02/2022 14:45:06 07/02/19 23 07/02/2022 urina lysis panel , auto Unknown Analyte Negati ve Not Available [facility] With [address], [place], [address], 07/02/2022 14:45:06 07/02/19 23 07/02/2022 urina lysis panel , auto Unknown Analyte Negati ve Not Available [facility] With [address], [place], [address], 07/02/2022 14:45:06 07/02/19 23 07/02/2022 urina lysis panel , auto Unknown Analyte Normal Not Available Count includes the [facility] With [address], [place], [address], 07/02/2022 14:45:06 07/02/19 23 07/02/2022 urina lysis panel , auto Unknown Analyte Normal Not Available Count includes the [facility] With [address], [place], [address], 07/02/2022 14:45:06 07/02/19 23 07/02/2022 urina lysis panel , auto Unknown Analyte Negati ve Not Available [facility] With [address] F, [place], [address], 07/02/2022 14:45:06 07/02/19 23 07/02/2022 urina lysis panel , auto Unknown Analyte Negati ve Not Available [facility] With [address] Priyanka Lopez, [place], [address], 07/02/2022 14:45:06 07/02/19 23 07/02/2022 urina lysis panel , auto Unknown Analyte Normal Not Available Count includes the [facility] With [address], [place], [address], 07/02/2022 14:45:06 07/02/19 23 07/02/2022 urina lysis panel , auto Unknown Analyte Normal 1 mg/dl Not Available [facility] With [address], [place], [address], 07/02/2022 14:45:06 07/02/19 23 07/02/2022 urina lysis panel , auto Unknown Analyte Negati ve Not Available [facility] With [address], [place], [address], 07/02/2022 14:45:06 07/02/19 23 07/02/2022 urina lysis panel , auto Unknown Analyte Negati ve Not Available [facility] With [address] Priyanka Lopez, [place], [address], 07/02/2022 14:45:06 07/02/19 23 07/02/2022 urina lysis panel , auto Unknown Analyte Negati ve Not Available [facility] With [address]anka Lopez, [place], [address], 07/02/2022 14:45:06 07/02/19 23 07/02/2022 urina lysis panel , auto Unknown Analyte Negati ve Not Available [facility] With [address], [place], [address], 07/02/2022 14:45:06 08/21/19 23 08/20/2022 urina lysis panel , auto Unknown Analyte Clean Catch Not Available [facility] With [address], [place], [address], 08/20/2022 14:41:44 08/21/19 23 08/20/2022 urina lysis panel , auto Unknown Analyte Yellow Not Available Count includes the [facility] With [address], [place], [address], 08/20/2022 14:41:44 08/21/19 23 08/20/2022 urina lysis panel , auto Unknown Analyte Clear Not Available Count includes the [facility] With [address], [place], [address], 08/20/2022 14:41:44 08/21/19 23 08/20/2022 urina lysis panel , auto Unknown Analyte 1.005 Not Available Count includes the [facility] With [address], [place], [address], 08/20/2022 14:41:44 08/21/19 23 08/20/2022 urina lysis panel , auto Unknown Analyte 1.003- 1.035 Not Available [facility] With [address], [place], [address], 08/20/2022 14:41:44 08/21/1908/20/2022 urina lysis panel , auto Unknown Analyte 6.5 Not Available Count includes the [facility] With [address] Priyanka Lopez, [place], [address], 08/20/2022 14:41:44 08/21/1908/20/2022 urina lysis panel , auto Unknown Analyte 5.0-8. 0 Not Available [facility] With [address] Priyanka Lopez, [place], [address], 08/20/2022 14:41:44 08/21/1908/20/2022 urina lysis panel , auto Unknown Analyte Negati ve Not Available [facility] With [address], [place], [address], 08/20/2022 14:41:44 08/21/1908/20/2022 urina lysis panel , auto Unknown Analyte Negati ve Not Available [facility] With [address] Priyanka Lopez, [place], [address], 08/20/2022 14:41:44 08/21/19 23 08/20/2022 urina lysis panel , auto Unknown Analyte Negati ve Not Available [facility] With [address] Priyanka Lopez, [place], [address], 08/20/2022 14:41:44 08/21/1908/20/2022 urina lysis panel , auto Unknown Analyte Negati ve Not Available [facility] With [address] Priyanka Lopez, [place], [address], 08/20/2022 14:41:44 08/21/1908/20/2022 urina lysis panel , auto Unknown Analyte Negati ve Not Available [facility] With [address] Priyanka Lopez, [place], [address], 08/20/2022 14:41:44 08/21/1908/20/2022 urina lysis panel , auto Unknown Analyte Negati ve Not Available [facility] With [address] Priyanka Lopez, [place], [address], 08/20/2022 14:41:44 08/21/1908/20/2022 urina lysis panel , auto Unknown Analyte Normal Not Available Count includes the [facility] With [address] Priyanka Lopez, [place], [address], 08/20/2022 14:41:44 08/21/1908/20/2022 urina lysis panel , auto Unknown Analyte Normal Not Available Count includes the [facility] With [address] Priyanka Lopez, [place], [address], 08/20/2022 14:41:44 08/21/1908/20/2022 urina lysis panel , auto Unknown Analyte Negati ve Not Available [facility] With [address], [place], [address], 08/20/2022 14:41:44 08/21/1908/20/2022 urina lysis panel , auto Unknown Analyte Negati ve Not Available [facility] With [address], [place], [address], 08/20/2022 14:41:44 08/21/1908/20/2022 urina lysis panel , auto Unknown Analyte Normal Not Available Count includes the [facility] With [address] Priyanka Lopez, [place], [address], 08/20/2022 14:41:44 08/21/1908/20/2022 urina lysis panel , auto Unknown Analyte Normal 1 mg/dl Not Available [facility] With [address] Priyanka Lopez, [place], [address], 08/20/2022 14:41:44 08/21/1908/20/2022 urina lysis panel , auto Unknown Analyte Negati ve Not Available [facility] With [address] Priyanka Lopez, [place], [address], 08/20/2022 14:41:44 08/21/1908/20/2022 urina lysis panel , auto Unknown Analyte Negati ve Not Available [facility] With [address] Priyanka Lopez, [place], [address], 08/20/2022 14:41:44 08/21/19 23 08/20/2022 urina lysis panel , auto Unknown Analyte Negati ve Not Available [facility] With [address] Priyanka Lopez, [place], [address], 08/20/2022 14:41:44 08/21/1908/20/2022 urina lysis panel , auto Unknown Analyte Negati ve Not Available [facility] With [address] Priyanka Lopez, [place], [address], 08/20/2022 14:41:44 03/29/2003/28/2025 audio gram No observ ation record ed. BARCODE Not Available 2024 09:07:29 Result Notes None recorded. Procedures Surgical History Date Name Laterality Status Provider Name and Address Organization Details Recorded Time 03/28/20 Tympanogram completed AME RICHARDSON [address] [place], [address], [facility] 03/28/2025 15:09:19 03/28/20 Audiogram completed AME RICHARDSON [address] [place], [address], [facility] 03/28/2025 15:09:16 03/28/20 Cerumen removal - Instruments, Bilateral completed Yulia Olvera [facility] 03/28/2025 14:18:41 Knee arthroscopy/catia malachi completed [facility] 07/02/2022 14:43:48 Imaging Results None [...] Sensimist 27.5 mcg/actuat ion nasal spray,susp ension Emma two sprays into the right nostril once daily for 30 days 2024 active Not Available Not Available Not Avai lable Vitals Date Recorded Body height Body mass index (BMI) Body weight Provider Name and Address Organization Details Last Updated DateTime 07/02/2022 154.94 cm 21.4 kg/m2 22939.94 g [facility] 07/02/2022 14:41:26 Date Recorded Body height Body mass index (BMI) Body weight Provider Name and Address Organization Details Last Updated DateTime 08/20/2022 154.94 cm 21.4 kg/m2 03020.94 g Awa Navas [facility] 08/20/2022 14:40:59 Date Recorded Body height Body mass index (BMI) Body weight Body temperature Heart rate Systolic And Diastolic Provider Name and Address Organization Details Last Updated DateTime 154.94 cm 21.2 kg/m2 36191.3 5 g 97.8 [degF] 76 /min 143/80 mm[Hg] Kyle Alegre [facility] 13:55:31 Social History Question Answer Notes LastModified by Rising Details LastModified Time Tobacco Smoking Status [facility]oker [facility] 07/02/2022 14:43:28 Is Blood Transfusion Acceptable In An Emergency? Yes [email or web address] Information not available 03/28/2025 What Is Your Home Situation? Mother [email or web address] Information not available 03/28/2025 What Was The Date Of Your Most Recent Tobacco Screening? 03/28/2025 [email or web address] Information not available 03/28/2025 What Is Your Relationship Status? Information not available 07/02/2022 Sex: Unknown Functional Status Question Answer Note LastModified by [employer] Details LastModified Time Do you use any [...] ICD10 Code Diagnosis IMO Codes Diagnosis Note [id number] QIAN ARCEO MD [facility] [address] [place] [address] ,[place] [address] 07/02/2022 14:06:12 07/05/2022 04:02:59 Overactive urinary bladder 832555774 N32.81 Nocturia 812470884 R35.1 [id number] QIAN ARCEO MD [facility] [address] ,[place] [address] 08/20/2022 14:40:42 08/22/2022 04:36:15 Overactive urinary bladder 406066686 N32.81 Nocturia 018167890 R35.1 [id number] GRETCHEN SOLIS III, MD MD ENT [facility] [address] [facility] [place] [address] 03/28/2025 13:26:31 04/02/2025 21:33:05 Tinnitus 30391265 H93.19 [id number] Vertigo 262901792 R42 58938 Impacted c erumen of bilateral ears 4008996547 850902 H61.23 901547 Sensorineu ral hearing loss of bilateral ears 498661618 H90.3 [id number] Acute righ t otitis media 594946810 H66.91 [id number] She has more of a subacute otitis that has not responded well to medical management . Like to treat this and be prepared to consider ear tube placement if this does not clear over the next 4 weeks. [id number] AME RICHARDSON MD ENT [facility] [address] [facility] [place] [address] 03/28/2025 13:31:55 03/28/2025 15:10:28 Bilateral tinnitus 7957970570 102 H93.13 636778 Dizziness 728540333 R42 08182 Dysfunctio n of right eustachian tube 3827782061 712762 H69.91 [id number] Mixed cond uctive AND sensorineural hearing loss 60537876 H90.A31 [id number] Health Concerns Section Related Observation LastModified by Organization Detai ls LastModified Time None Recorded Concern Status LastModified by Organization Details LastModified Time None Recorded Advance Directives Directive None Recorded Payers Insurance Date Sequence Insurance Name Policy Number Policy Bowen Covered Member ID Bowen Member ID Guarantor Name 03/28/2025 1 [facility] (MEDICAID REPLACEMENT - HMO) Radha Vidales [id number] Radha Vidales 03/31/2025 1 [place] [id number] Radha Vidales [id number] Radha Vidales Notes Date Note Type [...] urination, not during urination. QIAN ARCEO MD [address] [place] [address], [address], [facility] 07/04/2022 15:53:03 08/20/2022 text/html 77-year-old female in [...] of concern to patient. QIAN ARCEO MD [address] [place] [address], [address], [facility] 08/21/2022 08:03:15 03/28/2025 text/html ROS as noted in the [...] tested recently. GRETCHEN SOLIS III, MD [address] [place], [address], [facility] 03/28/2025 15:15:30 OBGyn Episode No OBEpisode recorded.
[2025-04-06 10:54] VITALS: BMI 21.1
[2025-04-06 11:20] VITALS: BP 149/84; PULSE 76; RESP 17; O2SAT 98
[2025-04-06] MEDS: 0.9 % SODIUM CHLORIDE 1000ML 1,000 ML 667 ML IV (11:20)
[2025-04-06 11:40] LABS: Alanine Aminotransferase 26 U/L (12-78); Albumin Level 4.2 g/dl (3.5-5.0); Albumin/Globulin Ratio 1.1 (1.1-1.8); Alkaline Phosphatase 77 U/L (38-126); Anion Gap 10.4 mEq/L (5-15); Aspartate Amino Transferase 48 U/L (14-36); Bilirubin,Total 0.5 mg/dl (0.2-1.3); Blood Urea Nitrogen 7 mg/dl (7-17); Calcium 8.6 mg/dl (8.4-10.2); Carbon Dioxide 26 mmol/L (22.0-30.0); Chloride 102 mmol/L (98-107); Creatinine Clearance Estimated 35 mL/min (50-200); Creatinine,Serum 0.60 mg/dl (0.52-1.04); Estimated Glomerular Filt Rate 96 ml/min (>60); GFR (African American) 116 ML/MIN (>60); Globulin 3.7 g/dL (1.3-3.2); Glucose 92 mg/dl (74-100); Magnesium 1.3 mg/dl (1.6-2.3); Potassium 3.4 mmoL/L (3.5-5.1); Sodium 135 mmol/L (136-145); Total Protein,Serum 7.9 g/dl (6.3-8.2)
[2025-04-06 11:51] LABS: Hematocrit 37.2 % (37.0-47.0); Hemoglobin 11.8 g/dL (12.2-16.2); Immature Granulocytes % 0.2 %; Mean Corpuscular HGB Conc 31.7 g/dL (31.8-35.4); Mean Corpuscular Hemoglobin 25.8 pg (27.0-31.2); Mean Corpuscular Volume 81.4 fl (81-99); Nucleated Red Blood Cells % 0 %; Platelet Count 199 K/mm3 (142-424); Red Blood Count 4.57 M/mm3 (4.20-5.40); Red Cell Distribution Width-SD 47.5 fL; White Blood Count 4.3 K/mm3 (4.8-10.8)
[2025-04-06 12:50] VITALS: BP 154/87; PULSE 89; RESP 17
== END 2025-04-06 23:59 | disposition home or self-care (01) ==
LOC: INF 10:47
PROVIDERS: PCP Family Medicine; Visit Provider Internal Medicine Hematology & Oncology
DX: C7B.8 Other secondary neuroendocrine tumors (principal); C7A.019 Malignant carcinoid tumor of the small intestine, unspecified portion
CPT/HCPCS: 80053; 83520; 83735; 84260; 85025; 96360; J7030

== ENCOUNTER 2025-04-20 11:02 | Outpatient (CLI) | payer MEDICARE, SELFPAY ==
--- OUTSIDE RECORDS SUMMARY | 2025-03-30 09:32 | XMS_ITS | Encounter Summary ---
Author Organization [facility] Address [address] [id number] Care Team Providers Care Mix House Tender Name Role Phone Armani Campa MD Primary Care Provider [phone] Kylee James APRN Unavailable [phone] Faustino Topete MD Unavailable [phone] Reason for Referral * Imaging (Routine) - Closed Specialty Diagnoses / Procedures Referred By Barrett davis Referred To Contact Radiology Diagnoses Metastatic malignant neuroendocrine tumor to liver Procedures CT Abdomen Pelvis w IV Contrast CT Abdomen Pelvis w and wo IV Contrast Kylee James APRN [address] [address] Phone: tel: fax: Referral ID Status Reason Start Date Expiration Date Visits Re quested Visits Authorized [id number] Closed 03/06/2025 09/05/2026 1 1 Reason for Visit * Imaging (Routine) - Closed Specialty Diagnoses / Procedures Referred By Barrett davis Referred To Contact Radiology Diagnoses Metastatic malignant neuroendocrine tumor to liver Procedures CT Abdomen Pelvis w IV Contrast CT Abdomen Pelvis w and wo IV Contrast Kylee James APRN [address] [facility] [address] [place] [address] Phone: tel: fax: Referral ID Status Reason Start Date Expiration Date Visits Re quested Visits Authorized [id number] Closed 03/06/2025 09/05/2026 1 1 Encounter Details Date Type Department Care Team (Latest Contact Info) Description 03/30/2025 10:32 AM EDT - 03/30/2025 11:59 PM EDT Hospital Encounter [facility] [address] [place] [address] Metastatic malignant neuroendocrine tumor to liver Discharge [...] drink first t volodymyr in the morning (EYE-FILLING MIXER) to steady your nerves or to get rid of a hangover? 0 12/02/2023 CAGE Questionnaire Score 0 024 Utilities Answer Date Recorded In the past 12 months has th e [employer], gas, oil, or water company threatened to [...] Q AM PRN for mild pain. 11/27/[address] [facility] Please dispense appropriate needles and syringes for [...] Syringe 31G X 10/[address] [facility] 12/04/2024 documented as of this encounter Miscellaneous [...] Description 10/02/2025 11:00 AM EDT Office Visit [facility] Multidisciplinary Oncology Clinic [address] [place] [phone] Kylee James, BRAZING MACHINE FEEDER [address] [place] [address] documented as of this encounter Procedures Procedure [...] COMMUNICATION: Per this written report. Drafted by aPtti Gibbs MD on 03/30/2025 11:46 AM Final [...] documented as of this encounter Care Teams Mix House Tender Relationship Specialty Start Date End Date Armani Campa MD [address] [place] [address] PCP - General 10/19/22 Kylee James APRN [address] [facility] [address] [place] [address] Nurse Practitioner Medical Oncology 03/30/23 Faustino Topete MD 800 [facility] [address] [phone] Consulting Physician Medical Oncology 12/01/23 documented as of this encounter
--- OUTSIDE RECORDS SUMMARY | 2025-04-03 10:00 | XMS_ITS | Encounter Summary ---
Author Organization [facility] Address [address] [place] [address] Care Team Providers Care Electric Motor Control Assembler Name Role Phone Armani Campa MD Primary Care Provider [phone] Kylee James SPEECH LANGUAGE THERAPIST Unavailable [phone] Faustino Topete MD Unavailable [phone] Encounter Details Date Type Department Care Team (Late st Contact Info) Description 04/03/2025 10:00 AM EST Office Visit [facility] Multidisciplinary Oncology Clinic [address] [place] [address] Kylee James, SPEECH LANGUAGE THERAPIST 800 [facility] [address] [place] [address] Metastatic malignant neuroendocrine tumor to [...] drink first t volodymyr in the morning (EYE-INTERVENTIONAL RADIOLOGY TECH) to steady your nerves or to get rid of a hangover? 0 12/02/2023 CAGE Questionnaire Score 0 024 Utilities Answer Date Recorded In the past 12 months has th e [employer], gas, oil, or water company threatened to shut off services in your home? No 12/01/2023 Comments No Sex and Gender Information Value Date Recorded Sex Assigned at Female 01/15/2023 1:11 PM EDT Legal Sex Female 6:44 PM EDT Gender Identity Female 01/15/2023 1:11 PM EDT Sexual Orientation Not on file documented as of this encounter Miscellaneous Notes * Progress Notes - Kylee James, SPEECH LANGUAGE THERAPIST - 04/03/2025 10:00 AM EST Images from [...] in [place], the provider has confirmed with [facility] thatthe provider is authorized to provide services in patient's stated location? N/A Provider Location: [facility] facility Audio and video or audio only? [...] serotonin, Mg++. Labs to be ordered at [facility]. - Continue weekly IVF at [facility] as needed, ok to decrease frequency if [...] to get this Wednesday with IVF at [facility] - Will likely need Mg, K replacement. Will call after CMP results Subjective Interval Histories: 10/27/2022: Ms. Vidales presents today with her son for follow-up and review of scans. 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 She has been having intermittent, non-frequent [...] prn. She continues to get IVFs at [facility] once a week. She is [...] herself and receives weekly fluid infusions at [facility]. She reports no significant changes in [...] should other questions/concerns arise. Kylee James APRN [facility] Division of Medical Oncology [facility] [address] [place] [address] [1] Past Medical History: Diagnosis Date Heartburn [...] Description 10/02/2025 11:00 AM EDT Office Visit [facility] Multidisciplinary Oncology Clinic [address] [place] [phone] Kylee James APRN [address] [facility] [address] [place] [address] Scheduled Orders Name Type Priority Associated Diagnoses [...] documented as of this encounter Care Teams Electric Motor Control Assembler Relationship Specialty Start Date End Date Armani Campa MD [address] [place] [address] PCP - General 10/19/22 Kylee James APRN [address] [phone] Nurse Practitioner Medical Oncology 03/30/23 Faustino Topete MD [address] [phone] Consulting Physician Medical Oncology 12/01/23 documented as of this encounter
--- OUTSIDE RECORDS SUMMARY | 2025-04-20 11:05 | XMS_ITS | Encounter Summary ---
Author Organization [facility] Address [address] [place] [address] Care Team Providers Care Nuclear Equipment Test Engineer Name Role Phone Armani Campa MD Primary Care Provider [phone] Kylee James APRN Unavailable [phone] Faustino Topete MD Unavailable [phone] Encounter Details Date Type Department Care Team (Late st Contact Info) Description 03/05/2025 Telephone [facility] [address] [place] [address] Faustino Topete MD [address] [facility] [address] [place] [address] Social History Tobacco Use Types [...] drink first t volodymyr in the morning (EYE-EDUCATIONAL CONSULTANT) to steady your nerves or to [...] of day to reach caller: Call Melody [phone] Note: Please do not reply to this message. Follow-up communication and further actions as a result of this message need to be communicated with the patient directly, if the patient is not active onMyChart. If the patient is active on MyChart, they will receive notification of the communication/outcome via YaBattle. documented in this encounter Plan of Treatment Upcoming Encounters Date Type Department Care Team (Late st Contact Info) Description 10/02/2025 11:00 AM EDT Office Visit [facility] Mult[facility] On[facility] [address] [place] [address] Kylee James, MECHANICAL DESIGN DRAFTER 800 [facility] [address] [address] documented as of this encounter Visit Diagnoses Not on filedocumented in this encounter Additional Health Concerns Assessment Noted Time A fall risk assessment has been complete d for the patient 12/05/2024 10:38 AM EDT A Body Mass Index follow-up plan has been documented for the patient 12/13/2023 2:27 PM EDT documented as of this encounter Care Teams Nuclear Equipment Test Engineer Relationship Specialty Start Date End Date Armani Campa MD [address] [place] [address] PCP - General 10/19/22 Kylee James APRN [address] [address] Nurse Practitioner Medical Oncology 03/30/23 Faustino Topete MD [address] [place] [address]ung [address] [address] Consulting Physician Medical Oncology 12/01/23 documented as of this encounter
--- OUTSIDE RECORDS SUMMARY | 2025-04-20 11:05 | XMS_ITS | Encounter Summary ---
[facility] Address [address] [place] [address] Care Team Providers Care Product Development Ecologist Name Role Phone Armani Campa MD Primary Care Provider + Encounter Details Date Type Department Care Team (Late st Contact Info) Description 08/15/2024 Results Follow-Up [facility] [address] [facility] [address] [place] [address] Armani Campa MD [address] [facility] [place] [address] Social History Tobacco Use Types [...] 8:45 AM EDT Office Visit [facility] [address] [facility] [place] [address] Armani Campa MD [address] [place] [address] documented as of this encounter Visit Diagnoses Not on filedocumented in this encounter Additional Health Concerns Assessment Noted Time PHQ-2 Depression Total Score: 1 02/15/20 24 10:24 AM EDT documented as of this encounter Care Teams Product Development Ecologist Relationship Specialty Start Date End Date Armani Campa MD [address] [place] [address] PCP - General Family Medicine 12/25/21 documented as of this encounter
--- OUTSIDE RECORDS SUMMARY | 2025-04-20 11:05 | XMS_ITS ---
Author Organization [facility] Address [address] [place] [address] Care Team Providers Care Civil Rights Attorney Name Role Phone Armani Campa MD Primary Care Provider [phone] Kylee James APRN Unavailable [phone] Faustino Topete MD Unavailable [phone] Active Problems Problem Noted Date Diagnosed Date [...]
--- OUTSIDE RECORDS SUMMARY | 2025-04-20 11:05 | XMS_ITS | Clinical Summary ---
Author Organization [facility] Address [address] [place] [address] Care Team Providers Care Dial Screw Assembler Name Role Phone Armani Campa MD [...] Diarrhea. 60 tablet 5 03/27/20 25 Active potassium chloride (Klor-Con M20) 20 MEQ CR tabletIndications: Hypokalemia Take 1 tablet by mouth Daily. 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 03/26/2025 Telephone [facility] [address] [place] [address] Armani Campa MD Med Management 03/19/2025 Telephone [facility] [address] [place] [address] Armani Campa MD MAMMOGRAM ORDER 02/15/2025 3:15 PM EDT Office Visit [facility] [address] [place] [place] [address] Armani Campa MD Hypokalemia (Primary Dx); Medicare [...] Description 08/13/2025 8:45 AM EDT Office Visit [facility] [address] [place] [phone] Armani Campa MD [address] [address] [...] Priority Date/Time Associated Diagnosis Comments SCANNED - LABS 04/06/2025 SCANNED - LABS 04/06/2025 SCANNED - LABS 04/06/2025 SCANNED - LABS 04/06/2025 SCANNED - DEXA 01/28/2022 from Last 3 Months or Most Recently Relevant to Health Maintenance Results * LABS SCANNED (04/06/2025) Only the most recent of4 resultswithin the time period is included. Armani Campa MD LAB BLOOD ORDERABLES Fin al Result * SCANNED - DEXA (01/28/2022) Anatomical Region Laterality Modality Other Armani Campa MD CHART REVIEW TABS Fin al Result from Last 3 Months or Most Recently Relevant to Health Maintenance Insurance [employer] MED[employer] ADVANT[employer] HMO Advance Directives Documents on File Type Date Recorded Patient Preflight Mechanic Expl anation LIVING WILL - SCAN 01/28/2022 11:09 AM [facility], [facility], 05/20/2021 Care Teams Dial Screw Assembler Relationship Specialty Start Date End Date Armani Campa MD [address] [place] [address] PCP - General Family Medicine 12/25/21
--- OUTSIDE RECORDS SUMMARY | 2025-04-20 11:05 | XMS_ITS | Encounter Summary ---
Author Organization [facility] Address [address] [place] [address] Care Team Providers Care Lehr Operator Name Role Phone Armani Campa MD Primary Care Provider [phone] Kylee James APRN Unavailable [phone] Faustino Topete MD Unavailable [phone] Reason for Referral * Imaging (Routine) - Closed Specialty Diagnoses / Procedures Referred By Barrett davis Referred To Contact Radiology Diagnoses Metastatic malignant neuroendocrine tumor to liver Procedures CT Abdomen Pelvis w IV Contrast CT Abdomen Pelvis w and wo IV Contrast Kylee James APRN [address] [facility] Rosemarie Cheung [facility] [address] [place] [address] Phone: tel: fax: Referral ID Status Reason Start Date Expiration Date Visits Re quested Visits Authorized [id number] Closed 03/06/2025 09/05/2026 1 1 Encounter Details Date Type Department Care Team (Late st Contact Info) Description 03/06/2025 Orders Only [facility] [address] [place] [phone] Kylee James APRN [address] [facility] Jonatan [facility] [address] [place] [address] Metastatic malignant neuroendocrine tumor to [...] drink first t volodymyr in the morning (EYE-FIBRE CEMENT MOULDER) to steady your nerves or to get rid of a hangover? 0 12/02/2023 CAGE Questionnaire Score 0 024 Utilities Answer Date Recorded In the past 12 months has th e [employer], gas, oil, or water [employer] threatened to shut off services in your [...] Description 10/02/2025 11:00 AM EDT Office Visit [facility] On[facility] Clinic [address] [place] [address] Kylee James, AUTO MECHANIC SUPERVISOR [address] [facility] [address] [place] [address] documented as of this encounter Results * [...] documented as of this encounter Care Teams Lehr Operator Relationship Specialty Start Date End Date Armani Campa MD [address] [place] [address] PCP - General 10/19/22 Kylee James APRN [address] [facility] [address] [place] [address] Nurse Practitioner Medical Oncology 03/30/23 Faustino Topete MD [address] [facility] [address] [phone] Consulting Physician Medical Oncology 12/01/23 documented as of this encounter
--- OUTSIDE RECORDS SUMMARY | 2025-04-20 11:05 | XMS_ITS | Encounter Summary ---
Author Organization [facility] Address [address] [place] [address] Care Team Providers Care Ring Conductor Name Role Phone Armani Campa MD Primary Care Provider [phone] Kylee James APRN Unavailable [phone] Faustino Topete MD Unavailable [phone] Encounter Details Date Type Department Care Team [...] drink first t volodymyr in the morning (EYE-LEGAL WORD PROCESSOR) to steady your nerves or to get rid of a hangover? 0 12/02/2023 CAGE Questionnaire Score 0 024 Utilities Answer Date Recorded In the past 12 months has th e [employer], gas, oil, or water company threatened to [...] Description 10/02/2025 11:00 AM EDT Office Visit [facility] Oncology Clinic [address] [place] [address] Kylee James APRN [address] [address] documented as of this encounter Visit Diagnoses Not on filedocumented in this encounter Additional Health Concerns Assessment Noted Time A fall risk assessment has been complete d for the patient 12/05/2024 10:38 AM EDT A Body Mass Index follow-up plan has been documented for the patient 12/13/2023 2:27 PM EDT documented as of this encounter Care Teams Ring Conductor Relationship Specialty Start Date End Date Armani Campa MD [address] [place] [address] PCP - General 10/19/22 Kylee James APRN [address] [address] Nurse Practitioner Medical Oncology 03/30/23 Faustino Topete MD [address] [address] Consulting Physician Medical Oncology 12/01/23 documented as of this encounter
--- OUTSIDE RECORDS SUMMARY | 2025-04-20 11:05 | XMS_ITS | Continuity of Care Document ---
Author Organization [facility] Address [address] [place] [address] Care Team Providers Care Technical Support Assistant Name Role Phone ARMANI CORTES Referring Provider [phone] ARMANI CORTES Primary Care Provider [phone] Assessment No assessment recorded. Plan of Treatment Reminders Order Date Submit Date Provider Last Modified By Organization Details Last Modified Time Details Appointments RECHECK 2024 01:45P M GRETCHEN SOLIS III, MD Not available Not available Not available Lab None recorded. Referral None recorded. Procedures None recorded. Surgeries None recorded. Imaging None recorded. Medication Orders amoxicill in 875 mg tablet 2024 025 PAL [facility], [address], [address], 04/14/2025 05:01:58 Flonase Sensimist 27.5 mcg/actua tion nasal spray,bessie pension 2024 025 sita [facility], [address] [place] [address], [address], 03/28/2025 16:34:28 Patient TargetsNo targets recorded. Patient Instructions Encounter Date Encounter Id Patient Instructions Last Modified By Organization Details Last Modified Time 03/28/2025 [id number] 1. Audiogram obtained in office today. Results [...] Time 03/28/20 Tympanogram completed AME RICHARDSON [address] [place], [address], [facility] 03/28/2025 15:09:19 03/28/20 Audiogram completed AME RICHARDSON [address] [place], [address], [facility] 03/28/2025 15:09:16 03/28/20 Cerumen removal - Instruments, Bilateral completed Yulia Olvera [facility] 03/28/2025 14:18:41 Knee arthroscopy/catia malachi completed Beverly Mahmood [facility] 07/02/2022 14:43:48 Imaging Results None recorded. [...] hours by oral route for 10 days. 04/14 completed Not Available Not Available Not Available solifenaci n 10 mg tablet Take 1 [...] Sensimist 27.5 mcg/actuat ion nasal spray,susp ension Alba two sprays into the right nostril once daily for 30 days 2024 active Not Available Not Available Not Avai lable Vitals Date Recorded Body height Body mass index (BMI) Body weight Body temperature Heart rate Systolic And Diastolic Provider Name and Address Organization Details Last Updated DateTime 154.94 cm 21.2 kg/m2 52271.3 5 g 97.8 [degF] 76 /min 143/80 mm[Hg] Kyle Alegre [facility] 13:55:31 Social History Question Answer Notes LastModified by Organizat ion Details LastModified Time Tobacco Smoking Status Never Smoker Beverly Mahmood [facility] 07/02/2022 14:43:28 Is Blood Transfusion Acceptable [...] ICD10 Code Diagnosis IMO Codes Diagnosis Note [id number] GRETCHEN SOLIS III, MD [place] [facility] [address] [facility] [place] [address] 03/28/2025 13:26:31 04/02/2025 21:33:05 Tinnitus 90502495 H93.19 [id number] Vertigo 365395775 R42 19700 Impacted c erumen of bilateral ears 2708284389 225563 H61.23 684371 Sensorineu ral hearing loss of bilateral ears 474397040 H90.3 [id number] Acute righ t otitis media 315880021 H66.91 [id number] She has more of a subacute otitis that has not responded well to medical management . Like to treat this and be prepared to consider ear tube placement if this does not clear over the next 4 weeks. [id number] AME RICHARDSON ENT [facility] [address] [facility] [facility] [place] [address] 03/28/2025 13:31:55 03/28/2025 15:10:28 Bilateral tinnitus 8324580124 102 H93.13 698294 Dizziness 181543066 R42 42870 Dysfunctio n of right eustachian tube 1254783209 269234 H69.91 69758042 Mixed cond uctive AND sensorineural hearing loss 58234039 H90.A31 [id number] Health Concerns Section Related Observation LastModified by Organization Detai ls LastModified Time None Recorded Concern Status LastModified by Organization Details LastModified Time None Recorded Payers Encounter Date Sequence Insurance Name Policy Number Policy Bowen Covered Member ID Bowen Member ID Guarantor Name 03/28/2025 1 [place] OF [facility] MEDIMIAMI PLUS (MEDICARE REPLACEMENT HMO) [id number] Radha Vidales [id number] Radha Vidales Notes Date Note Type [...] been tested recently. GRETCHEN SOLIS III, MD [address] [place] [address], [place], [address], [facility] 03/28/2025 15:15:30 OBGyn Episode No OBEpisode recorded.
--- OUTSIDE RECORDS SUMMARY | 2025-04-20 11:05 | XMS_ITS | Encounter Summary ---
Author Organization [facility] Address [address] [place] [address] Care Team Providers Care Ramp Attendant Name Role Phone Armani Campa MD Primary Care Provider + Reason for Visit * Reason Onset Date Comments Med Refill 04/13/2025 Encounter Details Date Type Department Care Team (Late st Contact Info) Description 04/13/2025 Refill [facility] [address] [place] [address] Armani Campa MD [address] [place] [address] Neuroendocrine carcinoma metastatic to small [...] encounter Miscellaneous Notes * Telephone Encounter - Soto, Phill Parikh Rep - 04/13/2025 2:16 PM EST Caller: Radha Vidales Relationship: Self Best call back number: [phone] Requested Prescriptions: Requested Prescriptions Pending Prescriptions Disp Refills omeprazole (priLOSEC) 40 MG capsule 90 capsule 1 Sig: Take 1 capsule by mouth Daily. Pharmacy where request should be sent: [facility] [address] [phone] [facility] [phone] Last office visit with prescribing clinician: 02/15/2025 Last telemedicine visit with prescribing clinician: Visit date not found Next office visit with prescribing clinician: 08/13/2025 Additional details provided by patient: A MONTH SUPPLY LEFT, MARIAJOSE ASKED PATIENT TO REACH OUT ANDGET REFILLS PUT ON FILE Does the patient have less than a 3 day supply: [] Yes [x] No Would you like a call back once the refill request has been completed: [] Yes [x] No If the office needs to give you a call back, can they leave a voicemail: [] Yes [x] No Phill Cronin Rep 04/13/25 14:17 EST documented in this encounter Plan of Treatment Upcoming Encounters Date Type Department Care Team (Late st Contact Info) Description 08/13/2025 8:45 AM EDT Office Visit [facility] [address] [facility] [place] [phone] Armani Campa MD [address] [address] documented as of this encounter Visit Diagnoses Diagnosis 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
--- OUTSIDE RECORDS SUMMARY | 2025-04-20 11:05 | XMS_ITS | Encounter Summary ---
Author Organization [facility] Address [address] [place] [address] Care Team Providers Care Barn And Property Manager Name Role Phone Armani Cortes MD Primary Care Provider + Reason for Visit * Reason Onset Date Comments Med Management 03/26/2025 Encounter Details Date Type Department Care Team (Late st Contact Info) Description 03/26/2025 Telephone [facility] [address] [place] [address] Armani Cortes MD [address] [place] [address] Med Management Social History Tobacco [...] Vidales Relationship: Self Best call back number: [phone] Which medication are you concerned about: amLODIPine [...] THIS LIST NEEDS TO BESENT TO MARIAJOSE ([phone]) documented in this encounter Plan of Treatment Upcoming Encounters Date Type Department Care Team (Late st Contact Info) Description 08/13/2025 8:45 AM EDT Office Visit [facility] [address] 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
--- OUTSIDE RECORDS SUMMARY | 2025-04-20 11:05 | XMS_ITS | Encounter Summary ---
Author Organization [facility] Address [address] [place] [address] Care Team Providers Care Furnace Liner Name Role Phone Armani Campa MD Primary Care Provider [phone] Kylee James APRN Unavailable [phone] Faustino Topete MD Unavailable [phone] Encounter Details Date Type Department Care [...] drink first t volodymyr in the morning (EYE-IC DESIGN ENGINEER) to steady your nerves or to get rid of a hangover? 0 12/02/2023 CAGE Questionnaire Score 0 024 Utilities Answer Date Recorded In the past 12 months has th e [employer], gas, oil, or water company threatened to [...] Description 10/02/2025 11:00 AM EDT Office Visit [facility] Multidisciplinary Oncology Clinic [address] [place] [address] Kylee James APRN [address] [address] documented as of this encounter Visit Diagnoses Not on filedocumented in this encounter Additional Health Concerns Assessment Noted Time A fall risk assessment has been complete d for the patient 12/05/2024 10:38 AM EDT A Body Mass Index follow-up plan has been documented for the patient 12/13/2023 2:27 PM EDT documented as of this encounter Care Teams Furnace Liner Relationship Specialty Start Date End Date Armani Campa MD [address] [place] [address] PCP - General 10/19/22 Kylee James APRN [address] [address] Nurse Practitioner Medical Oncology 03/30/23 Faustino Topete MD [address] [address] Consulting Physician Medical Oncology 12/01/23 documented as of this encounter
--- OUTSIDE RECORDS SUMMARY | 2025-04-20 11:05 | XMS_ITS | Encounter Summary ---
Author Organization [facility] Address [address] [place] [address] Care Team Providers Care Sample Grinder Name Role Phone Armani Campa MD Primary Care Provider + Encounter Details Date Type Department Care Team (Late st Contact Info) Description 10/11/2024 Results Follow-Up [facility] [address] [facility] [place] [address] Armani Campa MD 210 [facility] [place] [address] Social History Tobacco Use Types [...] AM EDT Office Visit [facility] [address] [facility] [place] [address] Armani Campa MD [address] [place] [address] documented as of this encounter Visit Diagnoses Not on filedocumented in this encounter Additional Health Concerns Assessment Noted Time PHQ-2 Depression Total Score: 1 02/15/20 24 10:24 AM EDT documented as of this encounter Care Teams Sample Grinder Relationship Specialty Start Date End Date Armani Campa MD [address] [place] [address] PCP - General Family Medicine 12/25/21 documented as of this encounter
--- OUTSIDE RECORDS SUMMARY | 2025-04-20 11:05 | XMS_ITS | Clinical Summary ---
Author Organization [facility] Address [address] [place] [address] Care Team Providers Care Angiographer Name Role Phone Armani Campa MD Primary Care Provider [phone] Kylee James APRN Unavailable [phone] Faustino Topete MD Unavailable [phone] Allergies No known active allergies Medications alendronate [...] (diarrhea). 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); Diarrhea, unspecified type; Weakness of both lower extremities 04/02/2025 Travel 03/30/2025 10:32 AM EDT - 03/30/2025 11:59 PM EDT Hospital Encounter [facility] [address] [place] [address] Metastatic malignant neuroendocrine tumor to liver Discharge Disposition: Home or Self Care 03/30/2025 Travel 03/06/2025 Orders Only [facility] [address] [place] [address] Jacob Kylee Rasmussen SHERIE 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) 03/05/2025 Telephone [facility] [address] [place] [address] Faustino Topete MD from Last 3 Months Immunizations Immunization Administration Dates Next Due Influenza, high-dose, quadrivalent 03/11/2022 Joselo COVID-19 Vaccine (Blue Cap) 18+ 08/08/19 21 Moderna COVID-19 Vaccine (Quality Assistant) 12+ years Moderna COVID-19 Vaccine Bivalent 6months+ [...] drink first t volodymyr in the morning (EYE-SEDIMENT REMEDIATION CONSULTANT) to steady your nerves or to [...] Office Visit [facility] [address] [place] [address] Kylee James, AUTOMOBILE SERVICE STATION MECHANIC [address] [address] Health Maintenance Due Date Last Done Comments [facility]-Bone Density Scan 1943 [facility]-/Child/Adol SDOH Screenings 1943 [facility]- SDOH Screenings 1961 [facility]-Adult SDOH Screenings 1961 [facility]-Hepatitis A Vaccines (1 of 2 - Risk 2-dose series) 1962 [facility]-Pneumococcal Vaccine: 50+ Years (1 of 2 - PCV) 1962 [facility]-Medicare Annual Wellness (AWV) 02/14/2025 02/15/2024, 07/02/2022 JRA-IHYHO-16 Vaccine ( season) 2025 02/16/2025, 03/12/2024, 03/12/2023, Additional history exists [facility]-Depression Screening 12/05/2025 12/05/2024 [facility]-DTaP,Tdap,and Td Vaccines (3 - Td or Tdap) 12/20/2033 12/21/2023, 02/23/2022 [facility]-Zoster Vaccines Completed 12/20/2017, 8 [facility]-RSV Vaccine: 60+ Years or Completed 03/12/2024 [facility]-Influenza Vaccine Completed 02/16/2025 , 02/28/2024, 03/12/2023, [...] on 03/30/2025 12:08 PM us Kylee James AUTOMOBILE SERVICE STATION MECHANIC IMG CT PROCEDURES Final Res ult from Last 3 Months Insurance [employer] MEDICARE Advance Directives * DNR/DNI (Latest Code [...] Patient has decision-making capacity? Yes Care Teams Angiographer Relationship Specialty Start Date End Date Armani Campa MD [address] [place] [address] PCP - General 10/19/22 Kylee James APRN [address] [address] Nurse Practitioner Medical Oncology 03/30/23 Faustino Topete MD [address] [address] Consulting Physician Medical Oncology 12/01/23
--- OUTSIDE RECORDS SUMMARY | 2025-04-20 11:05 | XMS_ITS | Continuity of Care Document ---
Author Organization [facility] [place] [facility] Address [address] [place] [address] RD [address] [place] [address] Care Team Providers Care Painter Sign Maintenance Name Role Phone ARMANI CORTES Referring Provider [...] Organization Details Recorded Time 03/28/20 Tympanogram completed RAYRAY HDZ AUD [address] [place], [address], [facility] 03/28/2025 15:09:19 03/28/20 25 Audiogram completed RAYRAY HDZ AUD [address] [place], [address], [facility] 03/28/2025 15:09:16 03/28/20 25 Cerumen removal - Instruments, Bilateral completed Yulia Olvera [facility] 03/28/2025 14:18:41 Knee arthroscopy/catia malachi completed Beverly Mahmood [facility] 07/02/2022 14:43:48 Imaging Results None [...] Sensimist 27.5 mcg/actuat ion nasal spray,susp ension [place] two sprays into the right nostril once daily for 30 days 2024 active Not Available Not Available Not Avai lable Vitals Date Recorded Body height Body mass index (BMI) Body weight Body temperature Heart rate Systolic And Diastolic Provider Name and Address Organization Details Last Updated DateTime 154.94 cm 21.2 kg/m2 08305.3 5 g 97.8 [degF] 76 /min 143/80 mm[Hg] Kyle Alegre [facility] 13:55:31 Social History Question Answer Notes LastModified by Organizat ion Details LastModified Time Tobacco Smoking Status Never Smoker BeverlyHAYDEN Alvarado [facility] 07/02/2022 14:43:28 Is Blood Transfusion Acceptable [...] ICD10 Code Diagnosis IMO Codes Diagnosis Note [id number] MD HAYDEN MOLINA III ENT [facility] [address] [facility] [place] [address] 03/28/2025 13:26:31 04/02/2025 21:33:05 Tinnitus 41974378 H93.19 [id number] Vertigo 015531505 R42 20482 Impacted c erumen of bilateral ears 1073268000 205716 H61.23 806753 Sensorineu ral hearing loss of bilateral ears 783622271 H90.3 39511698 Acute righ t otitis media 132674126 H66.91 [id number] She has more of a subacute otitis that has not responded well to medical management . Like to treat this and be prepared to consider ear tube placement if this does not clear over the next 4 weeks. [id number] RAYRAY HDZ, AME BLAKE ENT [facility] [address] [facility] [place] [address] 03/28/2025 13:31:55 03/28/2025 15:10:28 Bilateral tinnitus 1179703853 102 H93.13 083949 Dizziness 922406764 R42 31851 Dysfunctio n of right eustachian tube 7013863973 994567 H69.91 94038818 Mixed cond uctive AND sensorineural hearing loss 30337586 H90.A31 [id number] Health Concerns Section Related Observation LastModified by Organization Detai ls LastModified Time None Recorded Concern Status LastModified by Organization Details LastModified Time None Recorded Payers Encounter Date Sequence Insurance Name Policy Number Policy Bowen Covered Member ID Bowen Member ID Guarantor Name 03/28/2025 1 [place] M[place] OF [facility] MEDIBLUE PLUS (MEDICARE REPLACEMENT HMO) [id number] Radha Vidales [id number] Radha Vidales Notes Date Note Type [...] GRETCHEN SOLIS III, MD [address], [place], [address], [place] [facility] 03/28/2025 15:15:30 OBGyn Episode No OBEpisode recorded.
--- OUTSIDE RECORDS SUMMARY | 2025-04-20 11:05 | XMS_ITS | Encounter Summary ---
Author Organization [facility] Address [address] [place] [address] Care Team Providers Care Numerical Control Programmer Name Role Phone Armani Campa MD Primary Care Provider + Reason for Referral * Diagnostic Imaging (Routine) - Authorized Specialty Diagnoses / Procedures Referred By Contac t Referred To Contact Diagnoses Encounter for screening mammogram for malignant neoplasm of breast Procedures Mammo Screening Digital Tomosynthesis Bilateral With CAD Armani Campa MD [address] [place] [address] Phone: tel: fax: [facility] [address] [facility] [address] [place] [address] Phone: tel: fax: Referral ID Status Reason Start Date Expiration Date V isits Requested Visits Authorized [id number] Authorized 03/22/2025 06/21/2026 1 1 Reason for Visit * Reason Onset Date Comments MAMMOGRAM ORDER 03/19/2025 Encounter Details Date Type Department Care Team (Late st Contact Info) Description 03/19/2025 Telephone [facility] [address] [place] [address] Armani Campa MD [address] [facility] [place] [address] MAMMOGRAM ORDER Social History Tobacco [...] Vidales Relationship: Self Best call back number: [phone] What orders are you requesting (i.e. lab or imaging): MAMMOGRAM In what timeframe would the patient need to come in: WHENEVER SHE IS DUE Where will you receive your lab/imaging services: [facility] Additional notes: PATIENT ISN'T SURE [...] [facility] [address] [...] documented as of this encounter Care Teams Numerical Control Programmer Relationship Specialty Start Date End Date Armani Campa MD [address] [place], [place] [id number] PCP - General Family Medicine 12/25/21 documented as of this encounter
--- OUTSIDE RECORDS SUMMARY | 2025-04-20 11:06 | XMS_ITS | Encounter Summary ---
Author Organization [facility] Address [address] [place] [address] Care Team Providers Care Document Imaging Specialist Name Role Phone Armani Campa MD Primary Care Provider + Reason for Visit * Reason Comments Med Refill Encounter Details Date Type Department Care Team (Late st Contact Info) Description 04/01/2023 Refill [facility] [address] [place] [address] Armani Campa MD [address] [place] [address] Primary osteoarthritis of right knee [...] Description 08/13/2025 8:45 AM EDT Office Visit [facility] [address] [place] [address] Armani Campa MD [address] [place] [address] documented as of this encounter Visit Diagnoses Diagnosis Primary osteoarthritis of right knee documented in this encounter Care Teams Document Imaging Specialist Relationship Specialty Start Date End Date Armani Campa MD [address] [place] [address] PCP - General Family Medicine 12/25/21 documented as of this encounter
--- OUTSIDE RECORDS SUMMARY | 2025-04-20 11:06 | XMS_ITS | Data Portability ---
Author Organization [facility] RADHA Rice ALTUS CLOSED Address [address] [facility] [address] [place] [address] Care Team Providers Care Railroad Track Mechanic Name Role Phone ARMANI CORTES Referring Provider ARMANI CORTES Primary Care Provider Assessment Encounter Date Assessment Date Assessment LastModified by Organization Details LastModified Time 07/02/2022 07/02/2022 Symptoms consistent with bladder spasms and overactive bladder. Trial of Vesicare. [email or web address] Not available 07/04/2022 15:48:22 08/20/2022 08/20/2022 Medical management of overactive bladder with Vesicare. Follow up in 6 months. [email or web address] Not available 08/20/2022 14:51:37 Plan of Treatment Reminders Order Date Submit Date Provider Last Modified By Organization Details Last Modified Time Details Appointments RECHECK 2024 01:45P Vivek SOLIS III, MD Not available Not available Not available Lab urinalysi s panel, auto 2022 [email or web address] [place] [address] , [place], [address], 08/21/2022 08:02:57 urinalysi s panel, auto 2022 [email or web address] [place] [address] , [place], [address], 07/07/2022 09:27:49 Referral None recorded. Procedures None recorded. Surgeries None recorded. Imaging None recorded. Medication Orders amoxicill in 875 mg tablet 2024 025 PAL [facility], [address], [address], 04/14/2025 05:01:58 Flonase Sensimist 27.5 mcg/actua tion nasal spray,bessie pension 2024 025 sita [facility], [address], [address], 03/28/2025 16:34:28 solifenac in 10 mg tablet [address] [facility], [address], [address], 03/28/2025 13:50:32 solifenac in 10 mg tablet [address] [facility], [address], [address], 03/28/2025 13:50:32 Patient TargetsNo targets recorded. Patient Instructions Encounter Date Encounter Id Patient Instructions Last Modified By Organization Details Last Modified Time 08/20/2022 [id number] learning about healthy weight [email or web address] Not available 08/21/2022 08:02:57 03/28/2025 [id number] 1. Audiogram obtained in office today. Results [...] days BID 5. F/u in one month [email or web address] Not available 03/28/2025 14:42:53 Reason for Referral None Reported. Results Created Date Observation Date Name Description Value Unit Range Abnormal Flag Note LastModifiedBy Organization Detail LastModifiedTime 07/02/19 07/02/2022 urina lysis panel , auto Unknown Analyte Clean Catch Not Available [facility] With [address], [place], [address], 07/02/2022 14:45:06 07/02/19 23 07/02/2022 urina lysis panel , auto Unknown Analyte Yellow Not Available [facility] With [address], [place], [address], 07/02/2022 14:45:06 07/02/19 23 07/02/2022 urina lysis panel , auto Unknown Analyte Clear Not Available [facility] With [address], [place], [address], 07/02/2022 14:45:06 07/02/19 23 07/02/2022 urina lysis panel , auto Unknown Analyte 1.005 Not Available [facility] With [address], [place], [address], 07/02/2022 14:45:06 07/02/19 23 07/02/2022 urina lysis panel , auto Unknown Analyte 1.003- 1.035 Not Available [facility] With [address], [place], [address], 07/02/2022 14:45:06 07/02/19 23 07/02/2022 urina lysis panel , auto Unknown Analyte 8.0 Not Available [facility] With [address], [place], [address], 07/02/2022 14:45:06 07/02/19 23 07/02/2022 urina lysis panel , auto Unknown Analyte 5.0-8. 0 Not Available [facility] With [address], [place], [address], 07/02/2022 14:45:06 07/02/19 23 07/02/2022 urina lysis panel , auto Unknown Analyte Negati ve Not Available [facility] With [address], [place], [address], 07/02/2022 14:45:06 07/02/19 23 07/02/2022 urina lysis panel , auto Unknown Analyte Negati ve Not Available [facility] With [address], [place], [address], 07/02/2022 14:45:06 07/02/19 23 07/02/2022 urina lysis panel , auto Unknown Analyte Negati ve Not Available [facility] With [address], [place], [address], 07/02/2022 14:45:06 07/02/19 23 07/02/2022 urina lysis panel , auto Unknown Analyte Negati ve Not Available [facility] With [address] Lopez, [place], [address], 07/02/2022 14:45:06 07/02/19 23 07/02/2022 urina lysis panel , auto Unknown Analyte Negati ve Not Available [facility] With [address], [place], [address], 07/02/2022 14:45:06 07/02/19 23 07/02/2022 urina lysis panel , auto Unknown Analyte Negati ve Not Available [facility] With [address], [place], [address], 07/02/2022 14:45:06 07/02/19 23 07/02/2022 urina lysis panel , auto Unknown Analyte Normal Not Available [facility] With [address], [place], [address], 07/02/2022 14:45:06 07/02/19 23 07/02/2022 urina lysis panel , auto Unknown Analyte Normal Not Available [facility] With [address] Lopez, [place], [address], 07/02/2022 14:45:06 07/02/19 23 07/02/2022 urina lysis panel , auto Unknown Analyte Negati ve Not Available [facility] With [address] Lopez, [place], [address], 07/02/2022 14:45:06 07/02/19 23 07/02/2022 urina lysis panel , auto Unknown Analyte Negati ve Not Available [facility] With [address], [place], [address], 07/02/2022 14:45:06 07/02/19 23 07/02/2022 urina lysis panel , auto Unknown Analyte Normal Not Available [facility] With [address], [place], [address], 07/02/2022 14:45:06 07/02/19 23 07/02/2022 urina lysis panel , auto Unknown Analyte Normal 1 mg/dl Not Available [facility] With [address], [place], [address], 07/02/2022 14:45:06 07/02/19 23 07/02/2022 urina lysis panel , auto Unknown Analyte Negati ve Not Available [facility] With [address], [place], [address], 07/02/2022 14:45:06 07/02/19 23 07/02/2022 urina lysis panel , auto Unknown Analyte Negati ve Not Available [facility] With [address], [place], [address], 07/02/2022 14:45:06 07/02/19 23 07/02/2022 urina lysis panel , auto Unknown Analyte Negati ve Not Available [facility] With [address] Lopez, [place], [address], 07/02/2022 14:45:06 07/02/19 23 07/02/2022 urina lysis panel , auto Unknown Analyte Negati ve Not Available [facility] With [address], [place], [address], 07/02/2022 14:45:06 08/21/19 23 08/20/2022 urina lysis panel , auto Unknown Analyte Clean Catch Not Available [facility] With [address] Lopez, [place], [address], 08/20/2022 14:41:44 08/21/19 23 08/20/2022 urina lysis panel , auto Unknown Analyte Yellow Not Available [facility] With [address] Lopez, [place], [address], 08/20/2022 14:41:44 08/21/19 23 08/20/2022 urina lysis panel , auto Unknown Analyte Clear Not Available [facility] With [address], [place], [address], 08/20/2022 14:41:44 08/21/19 23 08/20/2022 urina lysis panel , auto Unknown Analyte 1.005 Not Available [facility] With [address], [place], [address], 08/20/2022 14:41:44 08/21/19 23 08/20/2022 urina lysis panel , auto Unknown Analyte 1.003- 1.035 Not Available [facility] With [address], [place], [address], 08/20/2022 14:41:44 08/21/1908/20/2022 urina lysis panel , auto Unknown Analyte 6.5 Not Available [facility] With [address], [place], [address], 08/20/2022 14:41:44 08/21/1908/20/2022 urina lysis panel , auto Unknown Analyte 5.0-8. 0 Not Available [facility] With [address], [place], [address], 08/20/2022 14:41:44 08/21/1908/20/2022 urina lysis panel , auto Unknown Analyte Negati ve Not Available [facility] With [address], [place], [address], 08/20/2022 14:41:44 08/21/19 23 08/20/2022 urina lysis panel , auto Unknown Analyte Negati ve Not Available [facility] With [address], [place], [address], 08/20/2022 14:41:44 08/21/19 23 08/20/2022 urina lysis panel , auto Unknown Analyte Negati ve Not Available [facility] With [address], [place], [address], 08/20/2022 14:41:44 08/21/1908/20/2022 urina lysis panel , auto Unknown Analyte Negati ve Not Available [facility] With [address] Mathew F, [place], [address], 08/20/2022 14:41:44 03/23/20 23 08/20/2022 urina lysis panel , auto Unknown Analyte Negati ve Not Available [facility] With [address]w [address], [place], [address], 08/20/2022 14:41:44 08/21/19 23 08/20/2022 urina lysis panel , auto Unknown Analyte Negati ve Not Available [facility] With [address] Lopez, [place], [address], 08/20/2022 14:41:44 08/21/1908/20/2022 urina lysis panel , auto Unknown Analyte Normal Not Available [facility] With [address], [place], [address], 08/20/2022 14:41:44 08/21/19 23 08/20/2022 urina lysis panel , auto Unknown Analyte Normal Not Available [facility] With [address], [place], [address], 08/20/2022 14:41:44 08/21/19 23 08/20/2022 urina lysis panel , auto Unknown Analyte Negati ve Not Available [facility] With [address], [place], [address], 08/20/2022 14:41:44 08/21/1908/20/2022 urina lysis panel , auto Unknown Analyte Negati ve Not Available [facility] With [address], [place], [address], 08/20/2022 14:41:44 08/21/1908/20/2022 urina lysis panel , auto Unknown Analyte Normal Not Available [facility] With [address], [place], [address], 08/20/2022 14:41:44 08/21/1908/20/2022 urina lysis panel , auto Unknown Analyte Normal 1 mg/dl Not Available [facility] With [address] Lopez, [place], [address], 08/20/2022 14:41:44 08/21/1908/20/2022 urina lysis panel , auto Unknown Analyte Negati ve Not Available [facility] With [address] Lopez, [place], [address], 08/20/2022 14:41:44 08/21/19 23 08/20/2022 urina lysis panel , auto Unknown Analyte Negati ve Not Available [facility] With [address] Lopez, [place], [address], 08/20/2022 14:41:44 08/21/19 23 08/20/2022 urina lysis panel , auto Unknown Analyte Negati ve Not Available [facility] With [address] Priyanka Lopez, [place], [address], 08/20/2022 14:41:44 08/21/1908/20/2022 urina lysis panel , auto Unknown Analyte Negati ve Not Available [facility] With [address] Priyanka Lopez, [place], [address], 08/20/2022 14:41:44 03/29/2003/28/2025 audio gram No observ ation record ed. BARCODE Not Available 2024 09:07:29 Result Notes None recorded. Procedures Surgical History Date Name Laterality Status Provider Name and Address Organization Details Recorded Time 03/28/20 Tympanogram completed RAYRAY HDZ AUD [address] [place], [address], [facility] 03/28/2025 15:09:19 03/28/20 Audiogram completed RAYRAY HDZ AUD [address] [place], [address], [facility] 03/28/2025 15:09:16 03/28/20 25 Cerumen removal - Instruments, Bilateral completed Yluia Olvera [facility] 03/28/2025 14:18:41 Knee arthroscopy/catia malachi [facility] 14:43:48 Imaging Results None recorded. [...] Sensimist 27.5 mcg/actuat ion nasal spray,susp ension [place] two sprays into the right nostril once daily for 30 days 2024 active Not Available Not Available Not Avai lable Vitals Date Recorded Body height Body mass index (BMI) Body weight Provider Name and Address Organization Details Last Updated DateTime 07/02/2022 154.94 cm 21.4 kg/m2 88983.94 g Beverly [facility] 07/02/2022 14:41:26 Date Recorded Body height Body mass index (BMI) Body weight Provider Name and Address Organization Details Last Updated DateTime 08/20/2022 154.94 cm 21.4 kg/m2 78457.94 g Awa Navas [facility] 08/20/2022 14:40:59 Date Recorded Body height Body mass index (BMI) Body weight Body temperature Heart rate Systolic And Diastolic Provider Name and Address Organization Details Last Updated DateTime 154.94 cm 21.2 kg/m2 19209.3 5 g 97.8 [degF] 76 /min 143/80 mm[Hg] Kyle Alegre [facility] 13:55:31 Social History Question Answer Notes LastModified by Organizat ion Details LastModified Time Tobacco Smoking Status Never Smoker Beverly Timoteo [facility] 07/02/2022 14:43:28 Is Blood Transfusion Acceptable In [...] ICD10 Code Diagnosis IMO Codes Diagnosis Note [id number] QIAN ARCEO MD [facility] [address] [place] [address] ,[place] [address] 07/02/2022 14:06:12 07/05/2022 04:02:59 Overactive urinary bladder 287706538 N32.81 Nocturia 102547450 R35.1 [id number] QIAN ARCEO MD [facility] [address] ,[place] [address] 08/20/2022 14:40:42 08/22/2022 04:36:15 Overactive urinary bladder 262189504 N32.81 Nocturia 209963344 R35.1 [id number] GRETCHEN SOLIS III, MD [place] ENT [facility] [address] [facility] [place] [address] 03/28/2025 13:26:31 04/02/2025 21:33:05 Tinnitus 96408589 H93.19 [id number] Vertigo 641432976 R42 79026 Impacted c erumen of bilateral ears 4806433675 477286 H61.23 582259 Sensorineu ral hearing loss of bilateral ears 324161606 H90.3 46722345 Acute righ t otitis media 831190645 H66.91 [id number] She has more of a subacute otitis that has not responded well to medical management . Like to treat this and be prepared to consider ear tube placement if this does not clear over the next 4 weeks. [id number] AME RICHARDSON ME ENT [facility] [address] [facility] [place] [address] 03/28/2025 13:31:55 03/28/2025 15:10:28 Bilateral tinnitus 4319706974 102 H93.13 278753 Dizziness 226197911 R42 02549 Dysfunctio n of right eustachian tube 4201362027 461389 H69.91 54636918 Mixed cond uctive AND sensorineural hearing loss 36047981 H90.A31 [id number] Health Concerns Section Related Observation LastModified by Organization Detai ls LastModified Time None Recorded Concern Status LastModified by Organization Details LastModified Time None Recorded Advance Directives Directive None Recorded Payers Insurance Date Sequence Insurance Name Policy Number Policy Bowen Covered Member ID Bowen Member ID Guarantor Name 03/28/2025 1 [facility] (MEDICAID REPLACEMENT - HMO) Radha Vidales [id number] Radha Vidales 03/31/2025 1 [place]MEDICARE REPLACEMENT HMO) [id number] Radha Vidales [id number] Radha Vidales Notes Date Note Type [...] urination, not during urination. QIAN ARCEO MD [address] [place] [address], [address], [facility] 07/04/2022 15:53:03 08/20/2022 text/html 77-year-old female [...] of concern to patient. QIAN ARCEO MD [address] [place] [address], [address], [facility] 08/21/2022 08:03:15 03/28/2025 text/html ROS as [...] tested recently. GRETCHEN SOLIS III, MD [address] [place], [address], [facility] 03/28/2025 15:15:30 OBGyn Episode No OBEpisode recorded.
[2025-04-20] MEDS: 0.9 % SODIUM CHLORIDE 1000ML 1,000 ML 999 ML IV (11:15)
[2025-04-20 11:19] VITALS: BP 131/70; PULSE 73; RESP 18; O2SAT 98
[2025-04-20 12:15] VITALS: BP 161/89; PULSE 74; RESP 20; O2SAT 100
[2025-04-20] MEDS: SODIUM CHLORIDE 0.9% 10ML FLUSH SYRINGE 10 ML IV (14:57)
== END 2025-04-20 23:59 | disposition home or self-care (01) ==
LOC: INF 11:03
PROVIDERS: PCP Family Medicine; Visit Provider Internal Medicine Hematology & Oncology
DX: C7B.8 Other secondary neuroendocrine tumors (principal); C80.1 Malignant (primary) neoplasm, unspecified
CPT/HCPCS: 96360; J7030

== ENCOUNTER 2025-05-04 11:00 | Outpatient (CLI) | payer MEDICARE, SELFPAY ==
[2025-05-04 11:10] VITALS: BP 145/75; PULSE 76; RESP 21; O2SAT 98
[2025-05-04] MEDS: SODIUM CHLORIDE 0.9% 10ML FLUSH SYRINGE 10 ML IV (11:15)
[2025-05-04] MEDS: 0.9 % SODIUM CHLORIDE 1000ML 1,000 ML 999 ML IV (11:15)
[2025-05-04 12:10] VITALS: BP 155/73; PULSE 78
== END 2025-05-04 23:59 | disposition home or self-care (01) ==
LOC: INF 11:00
PROVIDERS: PCP Family Medicine; Visit Provider Internal Medicine Hematology & Oncology
DX: C7A.019 Malignant carcinoid tumor of the small intestine, unspecified portion (principal)
CPT/HCPCS: 96360; J7030

== ENCOUNTER 2025-05-07 15:46 | Outpatient (CLI) | payer MEDICARE, SELFPAY ==
--- NOTE | 2025-05-07 15:50 | MM_ITS ---
PROCEDURE INFORMATION: Exam: MG Bilateral Screening 3D Mammography Exam date and time: 05/07/2025 3:51 PM Age: 79 years old Clinical indication: Screening examination TECHNIQUE: Imaging protocol: Bilateral Screening tomosynthesis and 2D mammography including computer-aided detection (CAD) when performed. COMPARISON: 1. MG MM DIG SCREENING MAMM BI W/CAD 05/05/2024 1:46 PM 2. MG MM DIG SCREENING MAMM BI W/CAD 04/14/2023 3:02 PM FINDINGS: MAMMOGRAPHY: Breast composition: There are scattered areas of fibroglandular density. Mass: None. Architectural distortion: None. Calcifications: No suspicious calcifications. Asymmetric density: None. Skin thickening: None. Axillary adenopathy: None. IMPRESSION: No mammographic evidence of malignancy. Annual screening is recommended unless otherwise clinically indicated. ASSESSMENT: BI-RADS Category 1: Negative.
== END 2025-05-07 23:59 | disposition home or self-care (01) ==
LOC: RAD 15:47
PROVIDERS: PCP Family Medicine; Visit Provider Family Medicine
DX: Z12.31 Encounter for screening mammogram for malignant neoplasm of breast (principal); R92.323 Mammographic fibroglandular density, bilateral breasts
CPT/HCPCS: 77063; 77067

== ENCOUNTER 2025-05-18 11:06 | Outpatient (CLI) | payer MEDICARE, SELFPAY ==
--- OUTSIDE RECORDS SUMMARY | 2025-03-30 09:32 | XMS_ITS | Encounter Summary ---
Author Organization [facility] Address [address] [id number] Care Team Providers Care Miniature Set Builder Name Role Phone Armani Campa MD Primary Care Provider [phone] Kylee James APRN Unavailable [phone] Faustino Topete MD Unavailable [phone] Reason for Referral * Imaging (Routine) - Closed Specialty Diagnoses / Procedures Referred By Barrett davis Referred To Contact Radiology Diagnoses Metastatic malignant neuroendocrine tumor to liver Procedures CT Abdomen Pelvis w IV Contrast CT Abdomen Pelvis w and wo IV Contrast Kylee James APRN [address] [address] Phone: tel: fax: Referral ID Status Reason Start Date Expiration Date Visits Re quested Visits Authorized [id number] Closed 03/06/2025 09/05/2026 1 1 Reason for Visit * Imaging (Routine) - Closed Specialty Diagnoses / Procedures Referred By Barrett davis Referred To Contact Radiology Diagnoses Metastatic malignant neuroendocrine tumor to liver Procedures CT Abdomen Pelvis w IV Contrast CT Abdomen Pelvis w and wo IV Contrast Kylee James APRN [address] [facility] [address] [place] [address] Phone: tel: fax: Referral ID Status Reason Start Date Expiration Date Visits Re quested Visits Authorized [id number] Closed 03/06/2025 09/05/2026 1 1 Encounter Details Date Type Department Care Team (Latest Contact Info) Description 03/30/2025 10:32 AM EDT - 03/30/2025 11:59 PM EDT Hospital Encounter [facility] CT [address] [place] [address] Metastatic malignant neuroendocrine tumor to liver Discharge [...] drink first t volodymyr in the morning (EYE-SALES AND SERVICE ENGINEER) to steady your nerves or to get rid of a hangover? 0 12/02/2023 CAGE Questionnaire Score 0 024 Utilities Answer Date Recorded In the past 12 months has th e [employer], gas, oil, or water company threatened to [...] Q AM PRN for mild pain. 11/27/2023 [employer] & Syringes [facility] [place] [place] Please dispense appropriate needles and syringes for [...] Insulin Syringe 31G X 10/13 0.3 ML [facility] [place] [place] 12/04/2024 documented as of this encounter Miscellaneous [...] Description 10/02/2025 11:00 AM EDT Office Visit [facility] Multidisciplinary Oncology Clinic [address] [place] [phone] Kylee James, PRESSURE WELDER [address] [place] [address] documented as of this encounter Procedures Procedure [...] 03/30/2025 11:46 AM Final report signed by Patit Gibbs MD on 03/30/2025 12:08 PM Narrative [...] documented as of this encounter Care Teams Miniature Set Builder Relationship Specialty Start Date End Date Armani Campa MD [address] [place] [address] PCP - General 10/19/22 Kylee James APRN [address] Jonatan [facility] [address] [place] [address] Nurse Practitioner Medical Oncology 03/30/23 Faustino Topete MD 800 [facility] [address] [phone] Consulting Physician Medical Oncology 12/01/23 documented as of this encounter
--- OUTSIDE RECORDS SUMMARY | 2025-04-03 10:00 | XMS_ITS | Encounter Summary ---
Author Organization [facility] Address [address] [place] [address] Care Team Providers Care Turret Lathe Set Up Operator Name Role Phone Armani Campa MD Primary Care Provider Kylee James METAL PICKLING EQUIPMENT OPERATOR Unavailable [phone] Faustino Topete MD Unavailable [phone] Encounter Details Date Type Department Care Team (Late st Contact Info) Description 04/03/2025 10:00 AM EST Office Visit [facility] Multidisciplinary Oncology Clinic [address] [place] [address] Kylee James, METAL PICKLING EQUIPMENT OPERATOR 800 [facility] [address] [place] [address] Metastatic malignant neuroendocrine tumor to [...] drink first t volodymyr in the morning (EYE-HYDRAULIC PLUMBER HELPER) to steady your nerves or to get rid of a hangover? 0 12/02/2023 CAGE Questionnaire Score 0 024 Utilities Answer Date Recorded In the past 12 months has th e [employer], gas, oil, or water company threatened to shut off services in your home? No 12/01/2023 Comments No Sex and Gender Information Value Date Recorded Sex Assigned at Female 01/15/2023 1:11 PM EDT Legal Sex Female 6:44 PM EDT Gender Identity Female 01/15/2023 1:11 PM EDT Sexual Orientation Not on file documented as of this encounter Miscellaneous Notes * Progress Notes - Kylee James, METAL PICKLING EQUIPMENT OPERATOR - 04/03/2025 10:00 AM EST Images from [...] Patient confirms they are physically located in [place]? Yes If the patient is not physically located in [place], the provider has confirmed with [facility] thatthe provider is authorized to provide services in patient's stated location? N/A Provider Location: [facility] facility Audio and video or audio [...] serotonin, Mg++. Labs to be ordered at [facility]. - Continue weekly IVF at [facility] as needed, ok to decrease frequency if [...] to get this Wednesday with IVF at [facility] - Will likely need Mg, K replacement. Will call after CMP results Subjective Interval Histories: 10/27/2022: Ms. Vidales presents today with her son for follow-up and review of scans. 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 She has been having intermittent, non-frequent episodes [...] prn. She continues to get IVFs at [facility] once aweek. She is staking KCL [...] herself and receives weekly fluid infusions at [facility]. She reports no significant changes in [...] should other questions/concerns arise. Kylee James APRN [facility] Division of Medical Oncology [facility] [address] [place] [address] [1] Past Medical History: Diagnosis Date Heartburn [...] Description 10/02/2025 11:00 AM EDT Office Visit [facility] Multidisciplinary Oncology Clinic [address] [place] [phone] Kylee James APRN 800 [facility] [address] [place] [address] Scheduled Orders Name Type Priority Associated Diagnoses [...] documented as of this encounter Care Teams Turret Lathe Set Up Operator Relationship Specialty Start Date End Date Armani Campa MD [address] [place] [phone] PCP - General 10/19/22 Kylee James APRN [address] [phone] Nurse Practitioner Medical Oncology 03/30/23 Faustino Topete MD [address] [phone] Consulting Physician Medical Oncology 12/01/23 documented as of this encounter
--- OUTSIDE RECORDS SUMMARY | 2025-05-18 11:10 | XMS_ITS ---
Author Organization [facility] Address [address] [place] [address] Care Team Providers Care Product Managent Intern Name Role Phone Armani Campa MD Primary Care Provider Kylee James APRN Unavailable [phone] Faustino Topete MD Unavailable [phone] Active Problems Problem Noted Date Diagnosed Date [...]
--- OUTSIDE RECORDS SUMMARY | 2025-05-18 11:10 | XMS_ITS | Clinical Summary ---
Author Organization [facility] Address [address] [place] [address] Care Team Providers Care Delivery Assistant Name Role Phone Armani Campa MD Primary Care Provider [phone] Kylee James APRN Unavailable [phone] Faustino Topete MD Unavailable [phone] Allergies No known active allergies Medications alendronate [...] (diarrhea). 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); Diarrhea, unspecified type; Weakness of both lower extremities 04/02/2025 Travel 03/30/2025 10:32 AM EDT - 03/30/2025 11:59 PM EDT Hospital Encounter [facility] [address] [place] [address] Metastatic malignant neuroendocrine tumor to liver Discharge Disposition: Home or Self Care 03/30/2025 Travel 03/06/2025 Orders Only [facility] [address] [place] [address] Jacob Kylee Rasmussen SHERIE 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) 03/05/2025 Telephone [facility] [address] [place] [address] Faustino Topete MD from Last 3 Months Immunizations Immunization Administration Dates Next Due Influenza, high-dose, quadrivalent 03/11/2022 Joselo COVID-19 Vaccine (Blue Cap) 18+ 08/08/19 21 Moderna COVID-19 Vaccine (Slitter And Rewinder) 12+ years Moderna COVID-19 Vaccine Bivalent 6months+ [...] drink first t volodymyr in the morning (EYE-SENIOR SHIPPING CLERK) to steady your nerves or to [...] Office Visit [facility] [address] [place] [address] Kylee James, POCKET BUILDER [address] [address] Health Maintenance Due Date Last Done Comments [facility]-Bone Density Scan 1943 [facility]-/Child/Adol SDOH Screenings 1943 [facility]- SDOH Screenings 1961 [facility]-Adult SDOH Screenings 1961 [facility]-Hepatitis A Vaccines (1 of 2 - Risk 2-dose series) 1962 [facility]-Pneumococcal Vaccine: 50+ Years (1 of 2 - PCV) 1962 [facility]-Medicare Annual Wellness (AWV) 02/14/2025 02/15/2024, 07/02/2022 [id number] Vaccine ( season) 2025 02/16/2025, 03/12/2024, 03/12/2023, Additional history exists [facility]-Depression Screening 12/05/2025 12/05/2024 [facility]-DTaP,Tdap,and Td Vaccines (3 - Td or Tdap) 12/20/2033 12/21/2023, 02/23/2022 [facility]-Zoster Vaccines Completed 12/20/2017, 8 [facility]-RSV Vaccine: 60+ Years or Completed 03/12/2024 [facility]-Influenza Vaccine Completed 02/16/2025 , 02/28/2024, 03/12/2023, Additional history exists HPV Vaccines (No Doses Required) Completed [facility]-HIB Vaccines Aged Out No longer e [...] APRN IMG CT PROCEDURES Final Res ult from [...] Patient has decision-making capacity? Yes Care Teams Delivery Assistant Relationship Specialty Start Date End Date Armani Campa MD [address] [place] [address] PCP - General 10/19/22 Kylee James APRN [address] [address] Nurse Practitioner Medical Oncology 03/30/23 Faustino Topete MD [address]ung [address] [address] Consulting Physician Medical Oncology 12/01/23
--- OUTSIDE RECORDS SUMMARY | 2025-05-18 11:10 | XMS_ITS | Encounter Summary ---
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
--- OUTSIDE RECORDS SUMMARY | 2025-05-18 11:10 | XMS_ITS | Encounter Summary ---
Author Organization [facility] Address [address] [place] [address] Care Team Providers Care Sales Agent Protective Service Name Role Phone Armani Campa MD Primary Care Provider + Encounter Details Date Type Department Care Team (Late st Contact Info) Description 10/11/2024 Results Follow-Up [facility] [address] [facility] [place] [address] Armani Campa MD 210 [facility] [place] [address] Social History Tobacco Use [...] Description 08/13/2025 8:45 AM EDT Office Visit [facility] [address] [facility] [place] [address] Armani Campa MD [address] [place] [address] documented as of this encounter Visit Diagnoses Not on filedocumented in this encounter Additional Health Concerns Assessment Noted Time PHQ-2 Depression Total Score: 1 02/15/20 24 10:24 AM EDT documented as of this encounter Care Teams Sales Agent Protective Service Relationship Specialty Start Date End Date Armani Campa MD [address] [place] [address] PCP - General Family Medicine 12/25/21 documented as of this encounter
--- OUTSIDE RECORDS SUMMARY | 2025-05-18 11:10 | XMS_ITS | Encounter Summary ---
Author Organization [facility] Address [address] [place] [address] Care Team Providers Care Lay Out And Detail Drafter Name Role Phone Armani Campa MD Primary Care Provider + Reason for Visit * Reason Comments Med Refill Encounter Details Date Type Department Care Team (Late st Contact Info) Description 04/01/2023 Refill [facility] [address] [place] [address] Armani Campa MD [address] [place] [address] Primary osteoarthritis of right knee [...] Description 08/13/2025 8:45 AM EDT Office Visit [facility] [address] [place] [address] Armani Campa MD [address] [place] [address] documented as of this encounter Visit Diagnoses Diagnosis Primary osteoarthritis of right knee documented in this encounter Care Teams Lay Out And Detail Drafter Relationship Specialty Start Date End Date Armani Campa MD [address] [place] [address] PCP - General Family Medicine 12/25/21 documented as of this encounter
--- OUTSIDE RECORDS SUMMARY | 2025-05-18 11:10 | XMS_ITS | Encounter Summary ---
Author Organization [facility] Address [address] [place] [address] Care Team Providers Care Transliterator Name Role Phone Armani Campa MD Primary Care Provider [phone] Kylee James APRN Unavailable [phone] Faustino Topete MD Unavailable [phone] Encounter Details Date Type Department Care Team [...] first t volodymyr in the morning (EYE-NEWSPAPER VENDOR) to steady your nerves or to get rid of a hangover? 0 12/02/2023 CAGE Questionnaire Score 0 024 Utilities Answer Date Recorded In the past 12 months has th e [employer], gas, oil, or water company threatened to [...] Description 10/02/2025 11:00 AM EDT Office Visit [facility] Multidisciplinary Oncology Clinic [address] [place] [address] Kylee James APRN [address] [address] documented as of this encounter Visit Diagnoses Not on filedocumented in this encounter Additional Health Concerns Assessment Noted Time A fall risk assessment has been complete d for the patient 12/05/2024 10:38 AM EDT A Body Mass Index follow-up plan has been documented for the patient 12/13/2023 2:27 PM EDT documented as of this encounter Care Teams Transliterator Relationship Specialty Start Date End Date Armani Campa MD [address] [place] [address] PCP - General 10/19/22 Kylee James APRN [address] [address] Nurse Practitioner Medical Oncology 03/30/23 Faustino Topete MD [address] [address] Consulting Physician Medical Oncology 12/01/23 documented as of this encounter
--- OUTSIDE RECORDS SUMMARY | 2025-05-18 11:10 | XMS_ITS | Encounter Summary ---
Author Organization [facility] Address [address] [place] [address] Care Team Providers Care Pharmacy Manager Name Role Phone Armani Cortes MD Primary Care Provider + Reason for Visit * Reason Onset Date Comments Med Management 03/26/2025 Encounter Details Date Type Department Care Team (Late st Contact Info) Description 03/26/2025 Telephone [facility] [address] [place] [address] Armani Cortes MD [address] [place] [address] Med Management Social History Tobacco [...] Vidales Relationship: Self Best call back number: [phone] Which medication are you concerned about: amLODIPine [...] THIS LIST NEEDS TO BESENT TO [facility] ([phone]) documented in this encounter Plan of Treatment Upcoming Encounters Date Type Department Care Team (Late st Contact Info) Description 08/13/2025 8:45 AM EDT Office Visit [facility] [address] [facility] [place] [phone] Armani Cortes MD [address] [place] [address] documented as of this encounter Visit Diagnoses Diagnosis Hypokalemia Hypopotassemia 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
--- OUTSIDE RECORDS SUMMARY | 2025-05-18 11:10 | XMS_ITS | Encounter Summary ---
Author Organization [facility] Address [address] [place] [address] Care Team Providers Care Joint Sealer Name Role Phone Armani Campa MD Primary Care Provider + Encounter Details Date Type Department Care Team (Late st Contact Info) Description 05/10/2025 Results Follow-Up [facility] MED[facility] [address] [facility] [place] [address] Armani Campa MD [address] [facility] [place] [address] Social History Tobacco Use Types [...] 08/13/2025 8:45 AM EDT Office Visit [facility] [address] [facility] [place] [address] Armani Campa MD [address] [place] [address] documented as of this encounter Visit Diagnoses Not on filedocumented in this encounter Additional Health Concerns Assessment Noted Time PHQ-2 Depression Total Score: 1 02/15/20 24 10:24 AM EDT documented as of this encounter Care Teams Joint Sealer Relationship Specialty Start Date End Date Armani Campa MD [address] [place] [address] PCP - General Family Medicine 12/25/21 documented as of this encounter
--- OUTSIDE RECORDS SUMMARY | 2025-05-18 11:10 | XMS_ITS | Encounter Summary ---
[facility] Address [address] [place] [address] Care Team Providers Care Claims Service Representative Name Role Phone Armani Campa MD Primary Care Provider + Encounter Details Date Type Department Care Team (Late st Contact Info) Description 08/15/2024 Results Follow-Up [facility]INE [address] [facility] [place] [address] Armani Campa MD [address] [facility] [place] [address] Social History Tobacco Use Types [...] 8:45 AM EDT Office Visit [facility] [address] [facility] [place] [place] [address] Armani Campa MD [address] [place] [address] documented as of this encounter Visit Diagnoses Not on filedocumented in this encounter Additional Health Concerns Assessment Noted Time PHQ-2 Depression Total Score: 1 02/15/20 24 10:24 AM EDT documented as of this encounter Care Teams Claims Service Representative Relationship Specialty Start Date End Date Armani Campa MD [address] [place] [address] PCP - General Family Medicine 12/25/21 documented as of this encounter
--- OUTSIDE RECORDS SUMMARY | 2025-05-18 11:10 | XMS_ITS | Encounter Summary ---
Author Organization [facility] Address [address] [place] [id number] Care Team Providers Care Stationary Engineer Apprentice Name Role Phone Armani Campa MD Primary Care Provider + Reason for Referral * Diagnostic Imaging (Routine) - Authorized Specialty Diagnoses / Procedures Referred By Contac t Referred To Contact Diagnoses Encounter for screening mammogram for malignant neoplasm of breast Procedures Mammo Screening Digital Tomosynthesis Bilateral With CAD Armani Campa MD [address] [place] [address] Phone: tel: fax: [facility] [address] [facility] [address] [place] [address] Phone: tel: fax: Referral ID Status Reason Start Date Expiration Date V isits Requested Visits Authorized [id number] Authorized 03/22/2025 06/21/2026 1 1 Reason for Visit * Reason Onset Date Comments MAMMOGRAM ORDER 03/19/2025 Encounter Details Date Type Department Care Team (Late st Contact Info) Description 03/19/2025 Telephone [facility] [address] [place] [address] Armani Campa MD 210 [facility] [place] [address] MAMMOGRAM ORDER Social History Tobacco [...] Vidales Relationship: Self Best call back number: [phone] What orders are you requesting (i.e. lab or imaging): MAMMOGRAM In what timeframe would the patient need to come in: WHENEVER SHE IS DUE Where will you receive your lab/imaging services: [facility] Additional notes: PATIENT ISN'T SURE [...] Office Visit [facility] [address] [place] [address] Armani Campa MD [address] [place] [address] documented as of this encounter Results * Mammo Screening Digital Tomosynthesis Bilateral With CAD (05/07/2025) Anatomical Region Laterality Modality Breast N/A Mammography Armani Campa MD IMG MAMMOGRAPHY ORDERABL ES Final Result documented in this encounter Visit Diagnoses Diagnosis Encounter for screening mammogram for malignant neoplasm of breast- Primary documented in this encounter Additional Health Concerns Assessment Noted Time PHQ-2 Depression Total Score: 1 02/15/20 24 10:24 AM EDT documented as of this encounter Care Teams Stationary Engineer Apprentice Relationship Specialty Start Date End Date Armani Campa MD [address] [facility] [place] [address] PCP - General Family Medicine 12/25/21 documented as of this encounter
--- OUTSIDE RECORDS SUMMARY | 2025-05-18 11:10 | XMS_ITS | Encounter Summary ---
Author Organization [facility] Address [address] [place] [address] Care Team Providers Care Learning Coordinator Name Role Phone Armani Campa MD Primary Care Provider [phone] Kylee James APRN Unavailable [phone] Faustino Topete MD Unavailable [phone] Encounter Details Date Type Department Care Team [...] first t volodymyr in the morning (EYE-DIRECTOR COLLEGE) to steady your nerves or to get rid of a hangover? 0 12/02/2023 CAGE Questionnaire Score 0 024 Utilities Answer Date Recorded In the past 12 months has th e [employer], gas, oil, or water company threatened to [...] Description 10/02/2025 11:00 AM EDT Office Visit [facility] Multidisciplinary Oncology Clinic [address] [place] [address] Kylee James APRN [address] [address] documented as of this encounter Visit Diagnoses Not on filedocumented in this encounter Additional Health Concerns Assessment Noted Time A fall risk assessment has been complete d for the patient 12/05/2024 10:38 AM EDT A Body Mass Index follow-up plan has been documented for the patient 12/13/2023 2:27 PM EDT documented as of this encounter Care Teams Learning Coordinator Relationship Specialty Start Date End Date Armani Campa MD [address] [place] [address] PCP - General 10/19/22 Kylee James APRN [address] [address] Nurse Practitioner Medical Oncology 03/30/23 Faustino Topete MD [address] [address] Consulting Physician Medical Oncology 12/01/23 documented as of this encounter
--- OUTSIDE RECORDS SUMMARY | 2025-05-18 11:10 | XMS_ITS | Clinical Summary ---
Author Organization [facility] Address [address] [place] [address] Care Team Providers Care Envelope Folding Machine Operator Name Role Phone Armani Campa [...] Daily. 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 03/26/2025 Telephone [facility] [address] [place] [place] [address] Armani Campa MD Med Management 03/19/2025 Telephone [facility] [address] [place] [place] [address] Armani Campa MD MAMMOGRAM ORDER from Last 3 Months Immunizations Immunization Administration [...] Description 08/13/2025 8:45 AM EDT Office Visit [facility] [address] [facility] [place] [address] Armani Campa MD [address] [facility] [address] Health Maintenance Due Date Last Done Comments DXA SCAN 01/29/2024 01/28/2022, 01/28/2022 INFLUENZA VACCINE 12/29/2024 02/28/2024, , 03/11/2022, Additional history exists COVID-19 Vaccine (2023- 5 season) 2025 03/12/2024, 03/12/2023, 03/11/2022, Additional history exists ANNUAL WELLNESS VISIT 02/15/2026 02/15/2025 , 02/15/2025, 02/15/2024, Additional history exists TDAP/TD VACCINES (3 - Td or Tdap) 12/20/2033 024, 02/23/2022 ZOSTER VACCINE Completed 12/20/2017, 09/24/2017 Pneumococcal Vaccine 50+ Completed 05/07/2023 RSV Vaccine - Adults Completed 03/12/2024 Procedures Procedure Name Priority Date/Time Associated Diagnosis Comments MAMMO SCREENING DIGITAL TOMOSYNTHESIS BILATERAL W CAD Routine 05/07/2025 Encounter for screening mammogram for malignant neoplasm of breast SCANNED - LABS 04/06/2025 SCANNED - LABS 04/06/2025 SCANNED - LABS 04/06/2025 SCANNED - LABS 04/06/2025 SCANNED - DEXA 01/28/2022 from Last 3 Months or Most Recently Relevant to Health Maintenance Results * Mammo Screening Digital Tomosynthesis Bilateral With CAD (05/07/2025) Anatomical Region Laterality Modality Breast N/A Mammography Armani Campa MD IMG MAMMOGRAPHY ORDERABL ES Final Result * LABS SCANNED (04/06/2025) Only the most recent of4 resultswithin the time period is included. Armani Campa MD LAB BLOOD ORDERABLES Fin al Result * SCANNED - DEXA (01/28/2022) Anatomical Region Laterality Modality Other Armani Campa MD CHART REVIEW TABS Fin al Result from Last 3 Months or Most Recently Relevant to Health Maintenance Insurance [employer] HMO Advance Directives Documents on File Type Date Recorded Patient Computer Hardware Engineer Expl anation LIVING WILL - SCAN 01/28/2022 11:09 AM [facility] [facility] [place]/20/2021 Care Teams Envelope Folding Machine Operator Relationship Specialty Start Date End Date Armani Campa MD [address] [place] [address] PCP - General Family Medicine 12/25/21
[2025-05-18 11:20] VITALS: BP 129/73; PULSE 80; RESP 20; O2SAT 98
[2025-05-18] MEDS: 0.9 % SODIUM CHLORIDE 1000ML 1,000 ML 999 ML IV (11:20)
[2025-05-18 12:20] VITALS: BP 121/68; PULSE 72
== END 2025-05-18 23:59 | disposition home or self-care (01) ==
LOC: INF 11:07
PROVIDERS: PCP Family Medicine; Visit Provider Internal Medicine Hematology & Oncology
DX: C7A.019 Malignant carcinoid tumor of the small intestine, unspecified portion (principal)
CPT/HCPCS: 96360; J7030